=== PATIENT | female | born 1970 | race African-American/Black ===

== ENCOUNTER 2022-11-27 13:04 | Outpatient (OUT) | payer MEDICARE, MEDICAID, SELFPAY ==
[2022-11-27 13:44] LABS: Estimated Average Glucose 140 mg/dL; Glycohemoglobin A1C 6.5 % (4.5-6.2)
[2022-11-27 13:45] LABS: Alanine Aminotransferase 31 U/L (14-59); Albumin Globulin Ratio 1.1; Albumin Level 3.8 g/dL (3.4-5.0); Alkaline Phosphatase 73 U/L (46-116); Anion Gap 10.8; Aspartate Amino Transferase 16 U/L (15-37); Bilirubin Total 0.3 mg/dL (0.2-1.0); Calcium 8.9 mg/dL (8.5-10.1); Carbon Dioxide 29.3 mmol/L (21.0-32.0); Chloride 108 mmol/L (98-107); Chol HDL Ratio 2.8; Cholesterol 281 mg/dL (<=200); Estimated GFR (African America 42 (>=60); Estimated GFR (Non-African Ame 35 (>=60); Globulin 3.6 g/dL; Glucose 70 mg/dL (74-106); HDL Cholesterol 100 mg/dL (40-60); Potassium 4.1 mmol/L (3.5-5.1); Sodium 144 mmol/L (136-145); Total Protein 7.4 g/dL (6.4-8.2); Triglycerides 116 mg/dL (<=150); VLDL CHOLESTEROL 23.2 mg/dL
[2022-11-27 15:17] LABS: Thyroid Stimulating Hormone 1.706 uIU/mL (0.358-3.740)
== END 2022-11-27 13:05 | disposition home or self-care (01) ==
LOC: LAB 13:10
PROVIDERS: PCP Nurse Practitioner Primary Care; Visit Provider Nurse Practitioner Primary Care
DX: E11.9 Type 2 diabetes mellitus without complications (principal); E78.2 Mixed hyperlipidemia; E03.9 Hypothyroidism, unspecified
CPT/HCPCS: 36415; 80053; 80061; 83036; 84443

== ENCOUNTER 2023-02-26 11:00 | Outpatient (OUT) | payer MEDICARE, MEDICAID, SELFPAY ==
--- NOTE | 2023-02-26 | US_ITS ---
The [address] [address] Patient Name: LINDSEY AGEE MRN: [id number] date: 1970 Sex: F Assigned Patient Location: [place] Current Patient Location: [place] Accession/Order Number: [id number] Exam Date: 02/26/2023 11:12 Report Date: 02/26/2023 12:29 At the request of: SONYA REYNOSO Procedure: US renal BI US renal BI, 02/26/2023 11:12 AM EDT INDICATION: N18.32, I12.9, E55.9, E78.5 abnormal labwork COMPARISON: There is no appropriate prior study for comparison. FINDINGS: The kidneys measure 9.3 x 4.5 x 4.1 cm on the right and 9.7 x 2.5 x 4.1 cm on the left side. No hydronephrosis is noted. Normal vascularity of kidneys. Bilateral simple renal cysts are noted measuring less than 1 cm. Bilateral increased cortical echogenicity suggesting of medical renal disease. The visualized portion of the urinary bladder is unremarkable. The pre-void residual measures 309.5 mL. US/US renal BI IMPRESSION: Bilateral increased cortical echogenicity may suggest medical renal disease in appropriate clinical setting. No hydronephrosis is noted. Electronically authenticated by: GRISELDA DEAL Date: 02/26/2023 12:29
== END 2023-02-26 11:01 | disposition home or self-care (01) ==
LOC: US 11:00
PROVIDERS: PCP Nurse Practitioner Primary Care; Visit Provider Internal Medicine Nephrology
DX: I12.9 Hypertensive chronic kidney disease with stage 1 through stage 4 chronic kidney disease, or unspecified chronic kidney disease (principal); N18.32 Chronic kidney disease, stage 3b; E55.9 Vitamin D deficiency, unspecified; E78.5 Hyperlipidemia, unspecified
CPT/HCPCS: 76775

== ENCOUNTER 2023-04-05 10:26 | Outpatient (OUT) | payer MEDICARE, MEDICAID, SELFPAY ==
[2023-04-05 11:07] LABS: Basophils Percent Auto 0.4 % (0.2-2.0); Eosinophils Absolute Auto 0.1 10^3/uL (0.0-0.7); Eosinophils Percent Auto 1.5 % (0.9-7.0); Hematocrit 35.3 % (36.0-48.0); Hemoglobin 11.9 g/dL (12.0-16.0); Immature Granulocytes Abs Auto 0.02 10^3/uL (0.00-0.03); Immature Granulocytes Pct Auto 0.3 % (0.0-0.5); Lymphocytes Absolute Auto 1.5 10^3/uL (1.2-3.8); Lymphocytes Percent Auto 22.4 % (20.5-60.0); Mean Corpuscular HGB Conc 33.7 g/dL (29.9-35.2); Mean Corpuscular Hemoglobin 31.3 pg (26.7-34.0); Mean Corpuscular Volume 92.9 fL (81.0-99.0); Mean Platelet Volume 9.1 fL (9.5-13.5); Monocytes Absolute Auto 0.5 10^3/uL (0.3-0.8); Monocytes Percent Auto 6.8 % (1.7-12.0); Neutrophils Absolute Auto 4.6 10^3/uL (1.4-6.5); Neutrophils Percent Auto 68.6 % (43.0-75.0); Platelet Count 216 10^3/uL (150-450); Red Cell Distribution Width 13.4 % (11.0-15.0); White Blood Count 6.7 10^3/uL (4.0-11.0)
[2023-04-05 11:33] LABS: Estimated Average Glucose 137 mg/dL; Glycohemoglobin A1C 6.4 % (4.5-6.2)
[2023-04-05 11:34] LABS: Alanine Aminotransferase 40 U/L (14-59); Albumin Globulin Ratio 1.1; Albumin Level 3.8 g/dL (3.4-5.0); Alkaline Phosphatase 67 U/L (46-116); Aspartate Amino Transferase 23 U/L (15-37); BUN Creatinine Ratio 18.4; Bilirubin Total 0.4 mg/dL (0.2-1.0); Calcium 8.4 mg/dL (8.5-10.1); Carbon Dioxide 29.6 mmol/L (21.0-32.0); Chloride 102 mmol/L (98-107); Chol HDL Ratio 3.1; Cholesterol 270 mg/dL (<=200); Estimated GFR (African America 55 (>=60); Estimated GFR (Non-African Ame 45 (>=60); Globulin 3.6 g/dL; Glucose 94 mg/dL (74-106); HDL Cholesterol 88 mg/dL (40-60); Potassium 4.6 mmol/L (3.5-5.1); Sodium 139 mmol/L (136-145); Total Protein 7.4 g/dL (6.4-8.2); Triglycerides 123 mg/dL (<=150); VLDL CHOLESTEROL 24.6 mg/dL
[2023-04-05 12:42] LABS: TSH W/ REFLEX FT4 3.63
[2023-04-06 05:07] LABS: HIV Ab/p24 Ag Screen Non Reactive (Non Reactive)
== END 2023-04-05 10:27 | disposition home or self-care (01) ==
LOC: LAB 10:27
PROVIDERS: PCP Nurse Practitioner Primary Care; Visit Provider Nurse Practitioner Primary Care
DX: Z00.00 Encounter for general adult medical examination without abnormal findings (principal); Z13.6 Encounter for screening for cardiovascular disorders; Z13.29 Encounter for screening for other suspected endocrine disorder; Z11.4 Encounter for screening for human immunodeficiency virus [HIV]
CPT/HCPCS: 36415; 80053; 80061; 80156; 83036; 84443; 85025; 87389

== ENCOUNTER 2023-05-03 16:05 | Outpatient (OUT) | payer MEDICARE, MEDICAID, SELFPAY ==
[2023-05-03 16:30] LABS: Hematocrit 35.9 % (36.0-48.0); Mean Corpuscular HGB Conc 33.4 g/dL (29.9-35.2); Mean Corpuscular Hemoglobin 31.3 pg (26.7-34.0); Mean Corpuscular Volume 93.7 fL (81.0-99.0); Mean Platelet Volume 9.1 fL (9.5-13.5); Platelet Count 262 10^3/uL (150-450); Red Blood Count 3.83 10^6/uL (4.20-5.40); Red Cell Distribution Width 13.9 % (11.0-15.0); White Blood Count 8.3 10^3/uL (4.0-11.0)
[2023-05-03 16:31] LABS: Bilirubin Urine NEGATIVE (NEGATIVE); Blood Urine NEGATIVE (NEGATIVE); Clarity Urine CLEAR (CLEAR); Color Urine LT. YELLOW (YELLOW); Glucose Urine UA NEGATIVE (NEGATIVE); Ketones Urine NEGATIVE (NEGATIVE); Leukocyte Esterase Urine NEGATIVE (NEGATIVE); Nitrite Urine NEGATIVE (NEGATIVE); Protein Urine NEGATIVE (NEG/TRACE); Specific Gravity Urine 1.025 (1.005-1.025); Urobilinogen Urine 0.2 EU/dL (0.2-1.0); pH Urine 5.5 (5.0-9.0)
[2023-05-03 16:35] LABS: Creatinine Urine Random 112.18 mg/dL (20.00-300.00); Protein Creatinine Ratio Urine 0.18; Total Protein Urine Random 19.8 mg/dL (<=11.9)
[2023-05-03 17:09] LABS: Alanine Aminotransferase 26 U/L (14-59); Albumin Level 3.7 g/dL (3.4-5.0); Alkaline Phosphatase 71 U/L (46-116); Anion Gap 9.1; Aspartate Amino Transferase 16 U/L (15-37); BUN Creatinine Ratio 25.2; Bilirubin Total 0.3 mg/dL (0.2-1.0); Calcium 9.2 mg/dL (8.5-10.1); Carbon Dioxide 32.3 mmol/L (21.0-32.0); Chloride 104 mmol/L (98-107); Estimated GFR (African America 54 (>=60); Estimated GFR (Non-African Ame 45 (>=60); Globulin 3.7 g/dL; Glucose 175 mg/dL (74-106); Magnesium 1.5 mg/dL (1.8-2.4); Phosphorus 3.3 mg/dL (2.6-4.7); Potassium 3.4 mmol/L (3.5-5.1); Sodium 142 mmol/L (136-145); Total Protein 7.4 g/dL (6.4-8.2); Uric Acid 5.7 mg/dL (2.6-6.0)
[2023-05-06 11:07] LABS: PTH, Intact 52 pg/mL (15-65)
== END 2023-05-03 16:06 | disposition home or self-care (01) ==
PROVIDERS: PCP Nurse Practitioner Primary Care; Visit Provider Internal Medicine Nephrology
DX: I12.9 Hypertensive chronic kidney disease with stage 1 through stage 4 chronic kidney disease, or unspecified chronic kidney disease (principal); N18.32 Chronic kidney disease, stage 3b; E55.9 Vitamin D deficiency, unspecified; E78.5 Hyperlipidemia, unspecified
CPT/HCPCS: 36415; 80053; 81003; 82306; 82570; 83735; 83970; 84100; 84156; 84550; 85027

== ENCOUNTER 2023-06-04 13:20 | Outpatient (OUT) | payer MEDICARE, MEDICAID, SELFPAY ==
--- NOTE | 2023-06-04 13:23 | MM_ITS ---
Patient Name: LINDSEY AGEE MR#: [id number] : 1970 Exam Date: 06/04/2023 Ordering Doctor: MARLE[facility] REPORT PROCEDURE: MM TOMOSYNTHESIS SCREENING BI COMPARISON: MG MAMM LT DIAG FU, 05/18/2022. MAMMO POST BIOPSY LEFT, 06/05/2022. INDICATIONS: screening Calculator Name NCI Breast Cancer Risk Assessment Tool 5 Year Breast Cancer Risk Not Reported. Lifetime Breast Cancer Risk Not Reported. Personal Breast Cancer No Personal Ovarian Cancer No Treatments None Family Cancers None LOCATION: [facility] BREAST COMPOSITION: Heterogeneously dense,which may obscure small masses. FINDINGS: DIAGNOSTIC CATEGORY 2--BENIGN FINDING. NO CHANGE FROM COMPARISON. Scattered benign-appearing calcifications are present. Scattered benign-appearing nodules are present. RIGHT BREAST: No significant suspicious finding. LEFT BREAST: No significant suspicious finding. RECOMMENDATIONS: ROUTINE MAMMOGRAM AND CLINICAL EVALUATION IN 12 MONTHS. PLEASE NOTE: A NORMAL MAMMOGRAM DOES NOT EXCLUDE THE POSSIBILITY OF BREAST CANCER. A CLINICALLY SUSPICIOUS PALPABLE LUMP SHOULD BE BIOPSIED. Dictated by: Bello Guerrero MD on 06/04/2023 at 15:21 Approved by: Bello Guerrero MD on 06/04/2023 at 15:23
== END 2023-06-04 13:21 | disposition home or self-care (01) ==
LOC: MAMMO 13:20
PROVIDERS: PCP Nurse Practitioner Primary Care; Visit Provider Nurse Practitioner Primary Care
DX: Z12.31 Encounter for screening mammogram for malignant neoplasm of breast (principal)
CPT/HCPCS: 77063; 77067

== ENCOUNTER 2023-09-21 10:43 | Outpatient (OUT) | payer MEDICARE, MEDICAID, SELFPAY ==
[2023-09-21 11:49] LABS: Hematocrit 36.3 % (36.0-48.0); Hemoglobin 11.6 g/dL (12.0-16.0); Mean Corpuscular Volume 97.1 fL (81.0-99.0); Mean Platelet Volume 10.2 fL (9.5-13.5); Platelet Count 177 10^3/uL (150-450); Red Blood Count 3.74 10^6/uL (4.20-5.40); Red Cell Distribution Width 14.6 % (11.0-15.0); White Blood Count 5.8 10^3/uL (4.0-11.0)
[2023-09-21 12:22] LABS: Alanine Aminotransferase 16 U/L (14-59); Albumin Globulin Ratio 0.9; Albumin Level 3.7 g/dL (3.4-5.0); Alkaline Phosphatase 104 U/L (46-116); Anion Gap 15.1; Aspartate Amino Transferase 14 U/L (15-37); BUN Creatinine Ratio 16.3; Bilirubin Total 0.3 mg/dL (0.2-1.0); Carbon Dioxide 23.8 mmol/L (21.0-32.0); Chloride 112 mmol/L (98-107); Chol HDL Ratio 3.4; Cholesterol 242 mg/dL (<=200); Estimated GFR (African America 44 (>=60); Estimated GFR (Non-African Ame 36 (>=60); Globulin 4.2 g/dL; Glucose 87 mg/dL (74-106); HDL Cholesterol 72 mg/dL (40-60); Potassium 4.9 mmol/L (3.5-5.1); Sodium 146 mmol/L (136-145); Total Protein 7.9 g/dL (6.4-8.2); Triglycerides 103 mg/dL (<=150); VLDL CHOLESTEROL 20.6 mg/dL
== END 2023-09-21 10:44 | disposition home or self-care (01) ==
LOC: LAB 10:46
PROVIDERS: PCP Nurse Practitioner; Visit Provider Nurse Practitioner
DX: Z00.00 Encounter for general adult medical examination without abnormal findings (principal); Z13.6 Encounter for screening for cardiovascular disorders
CPT/HCPCS: 36415; 80053; 80061; 85027

== ENCOUNTER 2023-11-05 13:35 | Outpatient (OUT) | payer MEDICARE, MEDICAID, SELFPAY ==
--- OUTSIDE RECORDS SUMMARY | 2023-11-05 11:34 | XMS_ITS | CCD ---
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 Role Phone Nini Pelletier Unavailable Mildred Caroanupama Unavailable Nahum Srinivasan Primary Care Provider NAHUM SRINIVASAN Attending Unavailable NAHUM SRINIVASAN Primary Care Unavailable NAHUM SRINIVASAN Attending Unavailable NAHUM SRINIVASAN Primary Care Unavailable NAHUM SRINIVASAN Attending Unavailable NAHUM SRINIVASAN Primary Care Unavailable NAHUM SRINIVASAN Attending Unavailable NAHUM SRINIVASAN Primary Care Unavailable NAHUM SRINIVASAN Attending Unavailable NAHUM SRINIVASAN Primary Care Unavailable Nahum Srinivasan Primary Care Provider Rigo MALIK, Radha Garcia Primary Care P roritikader RADHA SIERRA Primary Care Unavailabl wayne Sierra MD, Radha Garcia Primary Care P roritikader LEONARDO BLACKBURN Primary Care Physician Shammo PLATE STACKER HAND, Leonardo(Historical) Primary Care Provid er Unavailable Janie Toscano Unavailable [phone] SHAMMO, LEONARDO Primary Care Unavailable NILL, Christopher R Attending Unavailable SHAMMO, LEONARDO Primary Care Unavailable SHAMMO, LEONARDO Referring Unavailable NILL, Christopher R Attending Unavailable SHAMMO, LEONARDO Primary Care Unavailable SHAMMO, LEONARDO Primary Care Unavailable NILL, Christopher R Attending Unavailable SHAMMO, LEONARDO Primary Care Unavailable NILL, Christopher R Attending Unavailable SHAMMO, LEONARDO Primary Care Unavailable NILL, Christopher R Attending Unavailable SHAMMO, LEONARDO Primary Care Unavailable NILL, Christopher R Attending Unavailable Rigo MALIK, [facility] GOLDEN Attending Unavailable NILLCHRISTOPHER Referring Unavailable NILL ., DR WHITE Consulting Unavailable SHAMMO, LEONARDO Primary Care Unavailable NILL ., DR WHITE Attending Unavailable NILL ., DR WHITE Admitting Unavailable SHARP, LUIS ENRIQUE Consulting Unavailable KUCHIPUDI, EMILI Consulting Unavailable SHAMMO, LEONARDO Consulting Unavailable SHAMMO, LEONARDO Attending Unavailable SHAMMO, LEONARDO Admitting Unavailable SHAMMO, LEONARDO Primary Care Unavailable SHAMMO, LEONARDO Primary Care Unavailable KARASIK ., DR LIMA Attending Unavailabl e KARASIK ., DR LIMA Admitting Unavailabl e KARASIK ., DR LIMA Consulting Unavailabl e ZIEBER, DR SHANI Hernandez Consulting Unavailable KARASIK ., DR LIMA Attending Unavailabl e KARASIK ., DR LIMA Admitting Unavailabl e KARASIK ., DR LIMA Consulting Unavailabl e SHAMMO, LEONARDO Primary Care Unavailable ZIEBER, DR SHANI Hernandez Consulting Unavailable SHAMMO, LEONARDO Primary Care Unavailable SHAMMO, LEONARDO Attending Unavailable SHAMMO, LEONARDO Admitting Unavailable ZIEBER, DR SHANI Hernandez Consulting Unavailable SHAMMO, LEONARDO Consulting Unavailable NILL ., DR WHITE Admitting Unavailable NILL ., DR WHITE Consulting Unavailable SHAMMO, LEONARDO Primary Care Unavailable NILL ., DR WHITE Attending Unavailable KARASIK ., DR LIMA Attending Unavailabl e KARASIK ., DR LIMA Admitting Unavailabl e KARASIK ., DR LIMA Consulting Unavailabl e MISC, DR JOSEPH Admitting Unavailable MISC, DR JOSEPH Consulting Unavailable MISC, DR JOSEPH Attending Unavailable SHAMMO, LEONARDO Consulting Unavailable SHAMMO, LEONARDO Attending Unavailable SHAMMO, LEONARDO Admitting Unavailable SHAMMO, LEONARDO Primary Care Unavailable NILL ., DR WHITE Consulting Unavailable NILL ., DR WHITE Attending Unavailable SHAMMO, LEONARDO Primary Care Unavailable NILL ., DR WHITE Admitting Unavailable SHAMMO, LEONARDO Primary Care Unavailable ZIEBER, DR SHANI Hernandez Consulting Unavailable NILL ., DR WHITE Attending Unavailable NILL ., DR WHITE Admitting Unavailable NILL ., DR WHITE Consulting Unavailable SHARP, LUIS ENRIQUE Consulting Unavailable AKASH II, SONJA Consulting Unavailable SHAMMO, LEONARDO Primary Care Unavailable KARASIK ., DR LIMA Attending Unavailabl e KARASIK ., DR LIMA Admitting Patrick TOSCANO ., DR LIMA Consulting Patrick MATOS, DR SHANI Hernandez Consulting Corazon Garza Unavailable Allergies Allergy Classification Reported Allergen(s) Allergy Type Date of Onset Reaction(s) Facility (1 source) No Known Medication Allergies; Translations: [No Known Medication Allergies] Propensity to adverse reactions (disorder) [facility] Repository Medications Current Medications Medication Drug Class(es) Dates Sig (Normalized) Sig (Original) alendronic acid 35 mg oral tablet (5 sources) Bisphosphonate Start: 06-06-2022 take 1 tablet by mouth every week alendronate 35 mg Tab 35 mg = 1 tab(s), Oral, qWeek, Refills(s) 0 Start Date: 06/20/22 Status: Ordered take 1 tablet by mouth once boogie y Alendronate Sodium 35 MG 1 tablet 30 minutes before the first food, beverage or medicine of the day with plain water Orally Active Comment on above: TAKE 1 TAB BY MOUTH ONCE A WEEK 30 MINS BEFORE FIRST FOOD/BEVERAGE/MEDS OF THE DAY WITH PLAIN WATER simvastatin 20 mg oral tablet (13 sources) HMG-CoA Reductase Inhibitor Start: 020 End: 022 take 1 tablet by mouth once daily simvastatin (ZOCOR) 20 MG tablet Indications: Hyperlipidemia, unspecified hyperlipidemia type Take 1 (one) tablet (20 mg total) by mouth daily . 90 tablet 1 09/22/2021 03/21/2022 Active Start: 06-07-2018 End: 04-04-2019 take 1 tablet by mouth once daily simvastatin (ZOCOR) 20 MG tablet Indications: Hyperlipidemia, unspecified hyperlipidemia type Take 1 (one) tablet (20 mg total) by mouth daily . 30 tablet 1 04/04/2019 Active Start: 05-03-2016 End: 07-31-2017 take 1 tablet by mouth once daily simvastatin (ZOCOR) 20 MG tablet Indications: Hyperlipidemia, unspecified hyperlipidemia type Take 1 (one) tablet (20 mg total) by mouth daily. 90 tablet 1 07/31/2017 Active levothyroxine sodium 0.025 mg oral tablet (20 sources) l-Thyroxine Start: 03-01-2022 take 1 tablet by mouth once daily levothyroxine 25 mcg (0.025 mg) Tab 25 mcg = 1 tab(s), Oral, Daily, Refills(s) 0 Start Date: 03/01/22 Status: Ordered Start: 10-01-2019 End: 08-30-2022 take 1 tablet by mouth once daily in the morning levothyroxine (SYNTHROID, LEVOTHROID) 25 MCG tablet Indications: Acquired hypothyroidism TAKE 1 (ONE) TABLET (25 MCG TOTAL) BY MOUTH EVERY MORNING . 90 tablet 1 03/03/2022 08/30/2022 Active Start: 06-07-2018 End: 04-04-2019 take 1 tablet by mouth once daily in the morning levothyroxine (Synthroid) 25 MCG tablet Indications: Acquired hypothyroidism Take 1 (one) tablet (25 mcg total) by mouth every morning . 30 tablet 1 04/04/2019 Active Start: 09-26-2017 take 1 tablet by giovana th once daily in the morning levothyroxine (SYNTHROID) 25 MCG tablet Indications: Acquired hypothyroidism Take 1 (one) tablet (25 mcg total) by mouth every morning. 90 tablet 1 09/26/2017 Active Start: 05-03-2016 End: 09-26-2017 take 1 tablet by mouth once daily in the morning levothyroxine (SYNTHROID) 25 MCG tablet Indications: Acquired hypothyroidism Take 1 (one) tablet (25 mcg total) by mouth every morning. 90 tablet 1 08/14/2017 09/26/2017 Discontinued Completed/Discontinued Medications Medication Drug Class(es) Dates Sig (Normalized) Sig (Original) amLODIPine 10 mg oral tablet (20 sources) Dihydropyridine Calcium Channel Jae Start: 06-20-2022 take 1 tablet by mouth once daily amLODIPine (NORVASC) 10 mg tablet Take 10 mg by mouth once daily. 0 06/20/2022 Active Start: 04-30-2020 End: 03-21-2022 take 1 tablet by mouth once daily amLODIPine 10 mg Tab 10 mg = 1 tab(s), Oral, Daily, Refills(s) 0 Start Date: 03/01/22 Status: Ordered Start: 06-07-2018 End: 04-04-2019 take 1 tablet by mouth once daily amLODIPine (NORVASC) 10 MG tablet Indications: Hypertension, benign Take 1 (one) tablet (10 mg total) by mouth daily . 30 tablet 1 04/04/2019 Active Start: 09-26-2017 take 1 tablet by giovana once daily amLODIPine (NORVASC) 10 MG tablet Indications: Hypertension, benign Take 1 (one) tablet (10 mg total) by mouth daily. 90 tablet 1 09/26/2017 Active Start: 08-28-2017 End: 09-26-2017 take 1 tablet by mouth once daily amLODIPine (NORVASC) 10 MG tablet Indications: Hypertension, benign Take 1 (one) tablet (10 mg total) by mouth daily. 30 tablet 1 08/28/2017 09/26/2017 Discontinued Start: 01-15-2017 End: 07-31-2018 take 1 tablet by mouth once daily amLODIPine (NORVASC) 5 MG tablet Indications: Hypertension, benign Take 1 (one) tablet (5 mg total) by mouth daily. 30 tablet 1 07/31/2017 08/28/2017 Discontinued Comment on above: Take 10 mg by mouth once daily. blood pressure test kit-small Kit (6 sources) Start: 07-31-2017 End: 04-04-2019 blood pressure test kit-small Kit Indications: Hypertension, benign 1 kit by Miscellaneous route daily. 1 each 0 07/31/2017 04/04/2019 Discontinued Start: 07-31-2017 blood pressure test kit-small Kit Indications: Hypertension, benign 1 kit by Miscellaneous route daily. 1 each 0 07/31/2017 Active cloNIDine hydrochloride 0.1 mg oral tablet (3 sources) Central alpha-2 Adrenergic Agonist Start: 07-31-2017 End: 08-14-2017 cloNIDine HCl (CATAPRES) tablet 0.2 mg hydroCHLOROthiazide 25 mg / lisinopril 20 mg oral tablet (18 sources) Thiazide Diuretic, Angiotensin Converting Enzyme Inhibitor Start: 07-03-2022 take 1 tablet by mouth once daily lisinopril-hydr oCHLOROthiazide (PRINZIDE, ZESTORETIC) 20-25 mg per tablet Take 1 tablet by mouth once daily. 0 07/03/2022 Active Start: 04-30-2020 End: 03-21-2022 take 1 tablet by mouth once daily hydrochlorothiazide-lisinopril 25 mg-20 mg Tab 1 tab(s), Oral, Daily, Refill(s) 0 Start Date: 03/01/22 Status: Ordered Start: 08-14-2017 End: 06-07-2019 take 1 tablet by mouth once daily lisinopril-hydrochlorothiazide (PRINZIDE,ZESTORETIC) 20-25 mg per tablet Indications: Hypertension, benign Take 1 (one) tablet by mouth daily . 30 tablet 0 06/07/2018 04/04/2019 Discontinued (Reorder) Comment on above: Take 1 tablet by giovana th once daily. lisinopril 10 mg oral tablet (4 sources) Angiotensin Converting Enzyme Inhibitor Start: 9 End: take 1 tablet by mouth once daily lisinopril (PRINIVIL,ZESTRIL) 10 MG tablet Indications: Hypertension, benign Take 1 (one) tablet (10 mg total) by mouth daily . 30 tablet 3 06/07/2018 04/04/2019 Discontinued Start: 07-31-2017 End: 08-14-2017 take 2 tablets by mouth once daily, then take 1 tablet by mouth lisinopril (PRINIVIL,ZESTRIL) 10 MG tablet Indications: Hypertension, benign Take 2 (two) tablets (20 mg total) by mouth daily. 60 tablet 1 07/31/2017 08/14/2017 Discontinued microencapsulated potassium chloride 20 meq extended release oral tablet (17 sources) Start: 07-18-2022 take 1 tablet by mouth once daily at mealtime KLOR-CON M20 20 mEq tablet TAKE 1 TABLET BY MOUTH EVERY DAY WITH FOOD FOR 90 DAYS 0 07/18/2022 Active Start: 03-01-2022 take 1 tablet by giovana th once daily Potassium Chloride (Ldp-Aoyk-Rky M20) 20 mEq oral tablet, extended release 20 mEq = 1 tab(s), Oral, Daily, Refills(s) 0 Start Date: 03/01/22 Status: Ordered Start: 04-30-2020 End: 03-21-2022 take 1 tablet by mouth once daily potassium chloride SA (K-DUR,KLOR-CON) 20 MEQ tablet Indications: Hypertension, benign Take 1 (one) tablet (20 mEq total) by mouth daily . 90 tablet 1 09/22/2021 03/21/2022 Active Start: 06-07-2018 take 1 tablet by giovana th once daily potassium chloride SA (K-DUR,KLOR-CON) 20 MEQ tablet Indications: Hypopotassemia Take 1 (one) tablet (20 mEq total) by mouth daily To supplement potassium . 30 tablet 3 06/07/2018 Active Start: 05-03-2016 End: 08-14-2017 take 1 tablet by mouth once daily potassium chloride SA (K-DUR,KLOR-CON) 20 MEQ tablet Indications: Hypopotassemia Take 1 (one) tablet (20 mEq total) by mouth daily To supplement potassium. 90 tablet 1 08/14/2017 Active Comment on above: TAKE 1 TABLET BY GIOVANA TH EVERY DAY WITH FOOD FOR 90 DAYS Problems Active Problems Problem Classification Problem Date Documented Da te Episodic/Chronic Cancer of breast (7 sources) Intraductal carcinoma in situ of left breast; Translations: [Intraductal carcinoma in situ of breast] Onset: 06-12-2022 Chronic Cardiac dysrhythmias (6 sources) Sinus tachycardia; Translations: [Sinus tachycardia] Onset: 08-12-2015 08-12-2015 Chronic Chronic kidney disease (2 sources) Chronic kidney disease stage 3B ; Translations: [Chronic kidney disease, stage 3b] Chronic Developmental disorders (11 sources) Intellectual functioning disability ; Translations: [Mental retardation] Onset: 04-27-2014 04-27-2014 Chronic Diabetes mellitus without complication (4 sources) Type 2 diabetes mellitus without complications; Translations: [TYPE 2 DM WITHOUT COMPLICATIONS] Onset: 08-17-2022 Chronic Diabetes mellitus without complication (7 sources) Prediabetes; Translations: [Prediabetes] Onset: 09-22-2021 Episodic Disorders of lipid metabolism (20 sources) Hyperlipidemia; Translations: [Hyperlipidemia, unspecified] Onset: 12-10-2009 04-27-2014 Chronic Essential hypertension (20 sources) Benign hypertension; Translations: [Essential (primary) hypertension] Onset: 09-27-2009 04-27-2014 Chronic Hypertension with complications and secondary hypertension (3 sources) Hypertensive renal disease; Translations: [Hypertensive chronic kidney disease with stage 1 through stage 4 chronic kidney disease, or unspecified chronic kidney disease] Chronic Nonmalignant breast conditions (5 sources) Atypical ductal hyperplasia of breast; Translations: [Unspecified benign mammary dysplasia of left breast] Onset: 05-25-2022 Episodic Nutritional deficiencies (3 sources) Vitamin D deficiency; Translations: [Vitamin D deficiency, unspecified] Chronic Osteoporosis (1 source) Age-related osteoporosis without current pathological fracture; Translations: [AGE-REL OSTEOPOR W/O CURR PATH FX] Onset: 04-25-2022 Chronic Other and unspecified benign neoplasm (2 sources) Benign tumor of breast; Translations: [Benign neoplasm of left breast] Onset: 06-20-2022 Episodic Other and unspecified benign neoplasm (2 sources) Fibroadenoma of breast 06-20-2022 Episodic Other and unspecified benign neoplasm (4 sources) Benign neoplasm of left breast; Translations: [BENIGN NEOPLASM OF LEFT BREAST] Onset: 07-05-2022 Episodic Other congenital anomalies (4 sources) Short stature disorder; Translations: [Other specified congenital malformation syndromes, not elsewhere classified] Onset: 04-27-2014 04-27-2014 Chronic Other ear and sense organ disorders (11 sources) Hearing loss; Translations: [Unspecified hearing loss, unspecified ear] Onset: 04-27-2014 04-27-2014 Chronic Other ear and sense organ disorders (1 source) Bilateral hearing loss; Translations: [Bilateral hearing loss, unspecified hearing loss type] Chronic Other liver diseases (5 sources) Abnormal levels of other serum enzymes; Translations: [ABNORMAL LEVELS OTHER SERUM ENZYMES] Onset: 04-24-2022 Episodic Other nutritional; endocrine; and metabolic disorders (2 sources) Body mass index less than 20 03-08-2022 Episodic Other nutritional; endocrine; and metabolic disorders (1 source) Underweight; Translations: [UNDERWEIGHT] Onset: 07-20-2022 Episodic Other nutritional; endocrine; and metabolic disorders (1 source) Body mass index (BMI) 19.9 or less, adult; Translations: [BODY MASS INDEX 19.9 OR LESS ADULT] Onset: 07-20-2022 Episodic Other screening for suspected conditions (not mental disorders or infectious disease) (20 sources) Patient encounter status; Translations: [Encounter for other screening for malignant neoplasm of breast] Onset: 09-22-2021 Episodic Thyroid disorders (20 sources) Hypothyroidism; Translations: [Acquired hypothyroidism] Onset: 12-10-2009 04-27-2014 Chronic Unclassified (10 sources) Patient encounter status; Translations: [Routine general medical examination at a health care facility] Onset: 06-15-2011 Resolved: 04-04-2019 04-27-2014 Unclassified (3 sources) Intellectual disability; Translations: [Intellectual disability] Onset: 04-27-2014 04-27-2014 Unclassified (1 source) CONTACT W/AND (SUSP) EXPOS COVID-19; Translations: [CONTACT W/AND (SUSP) EXPOS COVID-19] Onset: 04-11-2022 Past or Other Problems Problem Classification Problem Date Documented Date Episodic/Chronic Cardiac dysrhythmias (8 sources) Sinus tachycardia; Translations: [Tachycardia, unspecified] Onset: 08-12-2015 Episodic Chronic kidney disease (1 source) Chronic kidney disease Fluid and electrolyte disorders (12 sources) Hypokalemia; Translations: [Hypokalemia] Onset: 10-15-2012 Resolved: 03-08-2022 04-27-2014 Episodic Genitourinary symptoms and ill-defined conditions (2 sources) Disorder of the urinary system; Translations: [Disorder of kidney and ureter] Onset: 2012 04-27-2014 Episodic Immunizations and screening for infectious disease (1 source) Encounter for screening for human papillomavirus (HPV); Translations: [ENC SCREENING HUMAN PAPILLOMAVIRUS] Onset: 03-02-2022 Episodic Other diseases of kidney and ureters (8 sources) Disorder of kidney and/or ureter; Translations: [Disorder of kidney and ureter, unspecified] Onset: 2012 Resolved: 04-04-2019 04-27-2014 Episodic Other nutritional; endocrine; and metabolic disorders (16 sources) Underweight; Translations: [Short stature disorder] Onset: 04-27-2014 06-05-2014 Episodic Other nutritional; endocrine; and metabolic disorders (3 sources) Short stature disorder; Translations: [Short stature associated with congenital syndrome] Onset: 04-27-2014 04-27-2014 Episodic Other nutritional; endocrine; and metabolic disorders (1 source) Unexplained weight loss ; Translations: [Unexplained weight loss] Episodic Residual codes; unclassified (1 source) FH: Diabetes mellitus; Translations: [Family history of diabetes mellitus] Episodic Residual codes; unclassified (1 source) Asymptomatic menopausal state; Translations: [ASYMPTOMATIC MENOPAUSAL STATE] Onset: 04-25-2022 Episodic Results Test Name Value Interpretation Reference Range Facility GLYCOHEMOGLOBIN A1Con 2022 ADA RECOMMENDATION SEE BELOW Normal [facility] Comment on above: Result Comment: ADA RECOMMENDED LIMIT 4.0 - 6.0 ADA THERAPEUTIC TARGET < 7.0 ACTION SUGGESTED > 7.0 Performed By: #### A 1C #### [facility] [address] [place] [address] Dr. Mitesh Anthony Glucose [Mass/Vol] 137 mg/dL Normal [facility] Comment on above: Performed By: #### A 1C #### [facility] [address] [place] [address] Dr. Mitesh Anthony HbA1c (Bld) [Mass fraction] 6.4 % Critically high 4.5-6.2 [facility] Comment on above: Performed By: #### A 1C #### [facility] [address] [place] [address] Dr. Mitesh Anthony MICROALBUMIN, RAND URon 07-27 mALB 5.7 mg/L Normal <=30.0 [facility] Comment on above: Performed By: #### M ALBR #### [facility] [address] [place] [address] Dr. Mitesh Anthony PROF 14(COMP METB)on 023 Albumin [Mass/Vol] 4.1 g/dL Normal 3.4-5.0 [facility] Comment on above: Performed By: #### T SHRFT4, CMP #### [facility] [address] [place] [address] Dr. Mitesh Anthony Albumin/Globulin [Mass ratio] 1.1 {ratio} Normal [facility] Comment on above: Performed By: #### T SHRFT4, CMP #### [facility] [address] [place] [address] Dr. Mitesh Anthony ALP [Catalytic activity/Vol] 89 U/L Normal 46-116 [facility] Comment on above: Performed By: #### T SHRFT4, CMP #### [facility] [address] [place] [address] Dr. Mitesh Anthony ALT [Catalytic activity/Vol] 26 U/L Normal 14-59 [facility] Comment on above: Performed By: #### T SHRFT4, CMP #### [facility] [address] [place] [address] Dr. Mitesh Anthony Anion gap [Moles/Vol] 11.3 mmol/L Normal [facility] Comment on above: Performed By: #### T SHRFT4, CMP #### [facility] [address] [place] [address] Dr. Mitesh Anthony AST [Catalytic activity/Vol] 18 U/L Normal 15-37 [facility] Comment on above: Performed By: #### T LYNN4, CMP #### [facility] [address] [place] [address] Dr. Mitesh Anthony Bilirubin [Mass/Vol] 0.2 mg/dL Normal 0.2-1.0 [facility] Comment on above: Performed By: #### T SHRFT4, CMP #### [facility] [address] [place] [address] Dr. Mitesh Anthony Calcium [Mass/Vol] 9.4 mg/dL Normal 8.5-10.1 [facility] Comment on above: Performed By: #### T SHRFT4, CMP #### [facility] [address] [place] [address] Dr. Mitesh Anthony Chloride [Moles/Vol] 106 mmol/L Normal 98-107 [facility] Comment on above: Performed By: #### T LYNNFT4, CMP #### [facility] [address] [place] [address] Dr. Mitesh Anthony CO2 [Moles/Vol] 30.3 mmol/L Normal 21.0-32.0 [facility] Comment on above: Performed By: #### T SHR4, CMP #### [facility] [address] [place] [address] Dr. Mitesh Anthony Creatinine [Mass/Vol] 1.37 mg/dL Critically high 0.55-1.02 [facility] Comment on above: Performed By: #### T SHRFT4, CMP #### [facility] [address] [place] [address] Dr. Mitesh Anthony EGFR-AF GREENLANDIC 50 mL/min/1.73m2 Critically low >=60 [facility] Comment on above: Performed By: #### T SHRFT4, CMP #### [facility] [address] [place] [address] Dr. Mitesh Anthony EGFR-NON AF GREENLANDIC 41 mL/min/1.73m2 Critically low >=60 [facility] Comment on above: Performed By: #### T SHRFT4, CMP #### [facility] [address] [place] [address] Dr. Mitesh Anthony Globulin (S) [Mass/Vol] 3.6 g/dL Normal [facility] Comment on above: Performed By: #### T SHRFT4, CMP #### [facility] [address] [place] [address] Dr. Mitesh Anthony Glucose [Mass/Vol] 97 mg/dL Normal 74-106 [facility] Comment on above: Performed By: #### T LYNNFT4, CMP #### [facility] [address] [place] [address] Dr. Mitesh Anthony Potassium [Moles/Vol] 3.6 mmol/L Normal 3.5-5.1 [facility] Comment on above: Performed By: #### T ISAIAS4, CMP #### [facility] [address] [place] [address] Dr. Mitesh Anthony Protein [Mass/Vol] 7.7 g/dL Normal 6.4-8.2 [facility] Comment on above: Performed By: #### T LYNNFT4, CMP #### [facility] [address] [place] [address] Dr. Mitesh Anthony Sodium [Moles/Vol] 144 mmol/L Normal 136-145 [facility] Comment on above: Performed By: #### T ISAIAS4, CMP #### [facility] [address] [place] [address] Dr. Mitesh Anthony Urea nitrogen [Mass/Vol] 29.0 mg/dL Critically high 7.0-18.0 [facility] Comment on above: Performed By: #### T LYNNFT4, CMP #### [facility] [address] [place] [address] Dr. Mitesh Anthony Urea nitrogen/Creatinine [Mass ratio] 21.2 mg/mg Normal [facility] Comment on above: Performed By: #### T LYNNFT4, CMP #### [facility] [address] [place] [address] Dr. Mitesh Anthony TSH W/ REFLEX TO FT4on 08-17 TSH 1.449 uIU/mL Normal 0.358-3.740 [facility] Comment on above: Performed By: #### L IPID, CMP #### [facility] [address] [address] [address] Mitesh Anthony OUTSIDE SURG PATH SLIDE REVI EWon 08-07-2022 CASE REPORT Normal [facility] Comment on above: Order Comment: Speci evelyn Type: SLIDE Ordering Facility: [facility] Review Address: , , Result Comment: Surg ical Pathology Report Case: [id number] Authorizing Provider: Kaden Golden MD Collected: 08/07/2022 09:12 AM Ordering Location: [facility] Received: 08/07/2022 09:15 AM Pathologist: Albaro Murguia MD Specimen: SLIDE(S), 18 SLIDES, [id number] Performed By: #### L [id number] #### [facility] CLIA [id number] [address] [place] [address] CLINICAL HISTORY Prior core biopsy diagnosis [facility]. 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 Performed By: #### L [id number] #### [facility] CLIA [id number] [address] [place] [address] FINAL DIAGNOSIS Normal [facility] Comment on above: Order Comment: Raimundo rivas Type: SLIDE Ordering Facility: [facility] Outside Review Address: , , Result Comment: Lois crawley, left, at 3:00, excisional biopsy ([id number]; 07/12/2022): ---Atypical intraductal proliferation predominantly involving a fibroadenomatoid nodule. ---Background breast with previous biopsy site. ---Please see comment. Performed By: #### L [id number] #### [facility] CLIA [id number] [address] [place] [address] FINAL PERFORMING LAB Normal [facility] Comment on above: Order Comment: Speci men Type: SLIDE Ordering Facility: Outside Review Address: , , Result Comment: Diag nostic interpretation performed at [place] [address] CLIA# [id number] Mill Recorder: Akshat Nguyen M.D. Performed By: #### L [id number] #### [facility] CLIA [id number] [address] [place] [address] Consultation Noteon 08-04-19 23 Consultation Note [id number] [facility] [id number]#1.00C D:127 Normal [facility] CNOVSPon 08-02-2022 OVS Visit (SP) Office ([place] ([id number][facility] 1970 F Date Time Provider Department 08/02/22 3:30 PM KADEN GOLDEN During your visit today, we recorded the following information about you: Temperature Pulse Respiration Blood pressure 97.5 degrees 74/minute 16/minute 136/85 Weight Height 32.2 kg 1.321 m Kaden Golden MD 08/02/2022 4:01 PM Signed PATIENT NAME: Lindsey Polo CLINIC NO.: [id number] ATTENDING PHYSICIAN: Kaden Golden MD DATE OF SERVICE: August 02, [address] Christopher Meadows thank you for referring Miss Lindsey Polo for an opinion regarding ADH. CHIEF COMPLAINT: I have a breat mass that was taken HPI: Lindsey Polo is a 51 year old year old female with PMH sig for intellectual disability, lives with her cousin, HTN, pre diabetes, Osteoporosis who had a routine mammogram 04/24/2022 and L breast showed a 5 mm geographic shaped opacity in the posterior upper outer quadrant and 4 mm partially circumscribed mass mild LL quadrant. US 05/18/2022 demonstrated 7x7x3 mm hypoechoic mass at 2o'clock position 3.3 cm FN and biopsy was done 06/05/2022 which demonstrated atypical ductal proliferation bordering DCIS within a fibroadenoma. She subsequently saw Dr. Meadows and L breast Lumpectomy 07/12/2022 with atypical ductal proliferation bordering DCIS She denies any family history of breast and or ovarian cancer and also denies any hormone use and or previous breast biopsy She lives with her cousin Current Outpatient Medications Medication Sig alendronate (FOSAMAX) 35 mg tablet TAKE 1 TAB BY MOUTH ONCE A WEEK 30 MINS BEFORE FIRST FOOD/BEVERAGE/MEDS OF THE DAY WITH PLAIN WATER amLODIPine (NORVASC) 10 mg tablet Take 10 mg by mouth once daily. lisinopril-hydroCHLOROt hiazide (PRINZIDE, ZESTORETIC) 20-25 mg per tablet Take 1 tablet by mouth once daily. KLOR-CON M20 20 mEq tablet TAKE 1 TABLET BY MOUTH EVERY DAY WITH FOOD FOR 90 DAYS No current facility-administered medications for this visit. ALLERGIES No Known Allergies PAST MEDICAL HISTORY Diagnosis Date Ductal carcinoma in situ (DCIS) of left breast HTN (hypertension) Hyperlipemia Intellectual disability Sinus tachycardia History reviewed. No pertinent surgical history. History reviewed. No pertinent family history. Social History Tobacco Use Smoking status: Never Passive exposure: Past Smokeless tobacco: Never Substance Use Topics Alcohol use: Not Currently Drug use: Never REVIEW OF SYSTEMS GENERAL: No weight loss, malaise or fevers. No night sweats. HEENT: Negative for headaches, No changes in hearing or vision, no nose bleeds or other nasal problems. RESPIRATORY: Negative for cough, wheezing and shortness of breath CARDIOVASCULAR: Negative for chest pain, leg swelling and palpitations GI: Negative for abdominal discomfort, blood in stools or black stools and change in bowel habits : Negative for dysuria, frequency and incontinence MUSCULOSKELETAL: Negative for joint pain or swelling, back pain, and muscle pain. SKIN: Negative for lesions, rash, and itching. HEMATOLOGY/LYMPHOLOGY Negative for prolonged bleeding, bruising easily, and swollen nodes. NEURO: Negative for numbness or tingling of hands/feet. No weakness. PHYSICAL EXAMINATION: BP 136/85 Pulse 74 Temp 36.4 ?C (97.5 ?F) (Temporal) Resp 16 Ht 132.1 cm (4' 4.01 ) Wt 32.2 kg (71 lb) SpO2 93% BMI 18.46 kg/m? Wt 32.2 kg (71 lb) BMI 18.46 kg/m2 Last 3 Encounter Wt Readings: Date: Wt: 08/02/2022 32.2 kg (71 lb) General appearance:ECOG PERFORMANCE STATUS: 1- Restricted in physically strenuous activity. Carries out light duty. Patient in NAD. Skin: Skin color, texture, turgor normal. No rashes or lesions. Eyes: Anicteric sclera. Pupils are equally round and reactive to light. Extraocular movements are intact. Breast: No palpable breast masses. No nipple change or discharge. Lymph Nodes: No cervical, supraclavicular, axillary or inguinal adenopathy. Oropharynx: Lips, mucosa, and tongue normal. Back: No pain to percussion. Negative SLR test Lungs clear to auscultation, No wheezing or rhonchi Heart: RRR without murmur, gallop, or rubs. Abdomen soft, non-tender. No masses, organomegaly Extremities: No deformities. No edema Neuro: Gait and speech normal. Reflexes normal and symmetric. Muscular strength intact. Sensation grossly intact. Rectal: Deferred : Deferred LABS: No results found for: GLUC, K, NA, CHLOR, CO2, CREAT, BUN, ANION, CA, TPROT, ALB, TBILI, ALKPHOS, AST, ALT No results found for: WBC, RBC, HB, HCT, MCV, MCH, MCHC, RDWCV, PLT, MPV, MPV, NEUT, ABSNEUT, LYMPHP, ABSLYMPH, MONOP, ABSMONO, EOSINP, ABSEOSIN, BASOP, ABSBASO PATH: Saturnino Anton Lumpectomy 06/2022: IMAGING: Mammogram and US 04/2022: ASSESSMENT AND PLAN: Lindsey Burrows Christ is a 51 year old year old (more content not included)... Normal [facility] CNPNon 08-02-2022 CNPN Telephone (NCCAP) LINDSEY POLO ([id number]) 1970 F Date Time Provider Department 08/02/22 KADEN GOLDEN NCCAP During your visit today, we recorded the following information about you: Luis Enrique Szymanski 08/02/2022 3:50 PM Signed Request sent to [facility] General pathology to send to [facility] for second opinion August 02, 2022 3:50 PM Luis Enrique Szymanski Allergies As of Date: 08/02/2022 (No Known Allergies) Date Reviewed: 08/02/2022 Reviewed by: Yulissa Montiel - Fully Assessed Reason for Visit: Second Opinion Pathology [Other] Prescriptions as of 08/02/2022 - alendronate (FOSAMAX) 35 mg tablet TAKE 1 TAB BY MOUTH ONCE A WEEK 30 MINS BEFORE FIRST FOOD/BEVERAGE/MEDS OF THE DAY WITH PLAIN WATER - amLODIPine (NORVASC) 10 mg tablet Take 10 mg by mouth once daily. - lisinopril-hydroCHLOROt hiazide (PRINZIDE, ZESTORETIC) 20-25 mg per tablet Take 1 tablet by mouth once daily. 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 What to do next Someone Will Contact You Regarding These Appointments [facility] [place] Ref[place], Geographic proximity, Oncology, [facility], or [facility], [facility], 07/21/22 13:48:00 EST, Ductal carcinoma in situ (DCIS) of left breast Medications What How Much When Instructions Unchanged alendronate (alendronate 35 mg Tab) 1 Tablets By Mouth Every week Unchanged amlodipine (amLODIPine 10 mg Tab) 1 Tablets By Mouth Every day Unchanged hydrochlorothiazide-lis inopril (hydrochlorothiazide-li sinopril 25 mg-20 mg Tab) 1 Tablets By Mouth Every day Unchanged levothyroxine (levothyroxine 25 mcg (0.025 mg) Tab) 1 Tablets By Mouth Every day Unchanged potassium chloride (Potassium Chloride (Lsi-Okhf-Guq M20) 20 mEq oral tablet, extended release) 1 Tablets By Mouth Every day Allergies No Known Allergies No Known Medication Allergies Problems Ongoing - Any problem that you are currently receiving treatment for. 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 Hypokalemia Normal [facility] General Surgery Office/Clini c Noteon 07-21-2022 General Surgery Office/Clinic Note Chief Complaint post operative follow up HPI Staff 9 day post operative follow up post needle localized left breast lumpectomy. Denies pain, no use of pain medication. Denies bleeding, drainage or significant bruising. History of Present Illness 9 days s/p left breast lumpectomy, pathology with atypical ductal proliferation bordering DCIS, within a fibroadenomatous lesion; negative margins; patient denies pain or drainage; no bruising. Review of Systems ROS - Provider Constitutional: no fever, no sweats, no weight loss. Eyes: no glasses, no blurred vision, no visual loss. ENMT: no dentures, no hoarseness, no swallowing difficulties, no hearing loss, no ear infection(s), no nose bleeds. Cardiovascular: normal blood pressure, no chest pain, regular heartbeat, no heart murmur. Respiratory: no shortness of breath, no cough, no asthma, no wheezing. Gastrointestinal: no nausea, no vomiting, no diarrhea, no constipation, no blood in stool, no change in bowel habits, no abdominal pain, no hepatitis. Genitourinary: no kidney stones, no urine infection, no dysuria. Musculoskeletal: no pain, no weakness. Skin: no changing moles, no rash, no skin lumps. Neurologic: no seizures, no epilepsy, no headache. Psychiatric: no emotional or psychiatric problem. Heme/Lymph: no bleeding problems, no anemia, no blood clots, no transfusions. Allergy/Immunologic: no swollen lymph nodes/glands, no IV drug abuse. Other: Additional ROS info: Except as noted in the above Review of Systems and in the History of Present Illness, all other systems have been reviewed and are negative or noncontributory. Physical Exam skin: incision healing well, no erythema or drainage, no ecchymoses. glue intact. Assessment/Plan 1. Ductal carcinoma in situ (DCIS) of left breast (D05.12: Intraductal carcinoma in situ of left breast) doing well, negative margins, small focus; will refer to Oncology for recommendations regarding possible treatment with estrogen receptor modulator; call with problems/questions. Ordered: [facility] [place] 2. 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 Medications alendronate 35 mg Tab, 35 mg= 1 tab(s), Oral, qWeek amLODIPine 10 mg Tab, 10 mg= 1 tab(s), Oral, Daily hydrochlorothiazide-lis inopril 25 mg-20 mg Tab, 1 tab(s), Oral, Daily levothyroxine 25 mcg (0.025 mg) Tab, 25 mcg= 1 tab(s), Oral, Daily Potassium Chloride (Vaj-Qmxa-Cjp M20) 20 mEq oral tablet, extended release, 20 mEq= 1 tab(s), Oral, Daily Allergies No Known Allergies No Known Medication Allergies Social History Alcohol - Denies Alcohol Use, 03/08/2022 Substance Abuse - Denies Substance Abuse, 03/08/2022 Tobacco Never (less than 100 in lifetime) Tobacco Use:. Never Smokeless Tobacco Use:., 03/08/2022 Family History Family history is negative Immunizations Vaccine Date Status Comments influenza virus vaccine, inactivated 05/02/2022 Recorded SARS-CoV-2 (COVID-19) mRNA BNT-162b2 vax 10/02/2020 Recorded 2022-06-20: TPV40 SARS-CoV-2 (COVID-19) mRNA BNT-162b2 vax 09/11/2020 Recorded 2022-06-20: TPV40 Normal [facility] Comment on above: Result Comment: Elec tronically Signed By: TEODORO MALIK, Christopher Ragland\Date and Time Signed: 07/21/22 15:46 EST RAD - Ultrasound Reporton RAD - Ultrasound Report [id number]#1.00C D:127 Normal [facility] US GUIDE LOCAL BREAST LTon 0 07-20-2022 US GUIDE LOCAL BREAST LT Begin Addendum #1 COLLECTED DATE/TIME: 07/12/2022 12:00 EST Final Diagnosis Report for [facility] [place] LEFT BREAST MASS 3 O'CLOCK POSITION; EXCISION: -ATYPICAL DUCTAL PROLIFERATION, BORDERING DUCTAL CARCINOMA IN SITU WITHIN A FIBROADENOMATOUS LESION, SEE NOTE. 07/20/2022 sent to above surgeon per pathology (BM). Original Report EXAM: US GUIDE LOCAL BREAST LT HISTORY: Infiltrating duct carcinoma COMPARISON: Ultrasound breast left 05/18/2022, ultrasound breast biopsy 06/05/2022 TECHNIQUE: After obtaining informed consent, ultrasound-guided biopsy was performed in the usual sterile manner. The location of the biopsy was then marked as indicated below. FINDINGS: TARGET LESION: Biopsy marker clip left breast 2:00 adjacent chest wall. LOCATION: Left breast 2:00. NEEDLE: 5 cm Kopans hookwire. Medication: Buffered 1% Lidocaine with epinephrine administered locally. Complications: None. IMPRESSION: 1. Technically successful hookwire localization. Normal [facility] Pathology Noteon 07-19-2022 Pathology Note [id number]#1.00C D:127 Normal [facility] Operative Reporton Operative Report [id number]#1.00C D:127 Normal [facility] RAD - Ultrasound Reporton RAD - Ultrasound Report [id number]#1.00C D:127 Normal [facility] US BREAST SPECIMENon 023 US BREAST SPECIMEN EXAM: US BREAST SPECIMEN HISTORY: Infiltrating duct carcinoma of breast COMPARISON: Ultrasound breast biopsy 06/05/2022, ultrasound-guided wire localization 07/12/2022 TECHNIQUE: Ultrasound evaluation of surgical specimen. FINDINGS: Biopsy marker clip is present within the small soft tissue specimen. IMPRESSION: 1. Biopsy marker clip is present within the surgical specimen. Electronically authenticated by: SHANI MATOS Date: 2022-07-12 13:51 Normal [facility] ECG 12-Leadon 07-05-2022 ECG 12-Lead [id number]#1.00C D:127 Normal [facility] Lab Reportson 07-05-2022 Lab Reports [id number]#1.00C D:127 Normal [facility] PROF CHEM 8 (BAS METB)on Anion gap [Moles/Vol] 13.7 mmol/L Normal [facility] Comment on above: Performed By: #### B MP #### [facility] [address] [place] [address] [address] Mitesh Anthony Calcium [Mass/Vol] 9.6 mg/dL Normal 8.5-10.1 [facility] Comment on above: Performed By: #### B MP #### [facility] [address] [place] [address] [address] Mitesh Anthony Chloride [Moles/Vol] 108 mmol/L Critically high 98-107 [facility] Comment on above: Performed By: #### B MP #### [facility] [address] [place] [address] [address] Mitesh Anthony CO2 [Moles/Vol] 27.5 mmol/L Normal 21.0-32.0 [facility] Comment on above: Performed By: #### B MP #### [facility] [address] [place] [address] [address] Mitesh Anthony Creatinine [Mass/Vol] 1.36 mg/dL Critically high 0.55-1.02 [facility] Comment on above: Performed By: #### B MP #### [facility] [address] [place] [address] [address] Mitesh Anthony EGFR-AF GREENLANDIC 50 mL/min/1.73m2 Critically low >=60 [facility] Comment on above: Performed By: #### B MP #### [facility] [address] [place] [address] [address] Mitesh Anthony EGFR-NON AF GREENLANDIC 41 mL/min/1.73m2 Critically low >=60 [facility] Comment on above: Performed By: #### B MP #### [facility] [address] [place] [address] [address] Mitesh Anthony Glucose [Mass/Vol] 132 mg/dL Critically high 74-106 [facility] Comment on above: Performed By: #### B MP #### [facility] [address] [place] [address] [address] Mitesh Anthony Potassium [Moles/Vol] 4.2 mmol/L Normal 3.5-5.1 [facility] Comment on above: Performed By: #### B MP #### [facility] [address] [place] [address] [address] Mitesh Anthony Sodium [Moles/Vol] 145 mmol/L Normal 136-145 [facility] Comment on above: Performed By: #### B MP #### [facility] [address] [place] [address] [address] Mitesh Anthony Urea nitrogen [Mass/Vol] 32.0 mg/dL Critically high 7.0-18.0 [facility] Comment on above: Performed By: #### B MP #### [facility] [address] [place] [address] [address] Mitesh Anthony Urea nitrogen/Creatinine [Mass ratio] 23.5 mg/mg Normal [facility] Comment on above: Performed By: #### B MP #### [facility] [address] [place] [address] [address] Mitesh Anthony Consent for Procedure/Surger yon 06-23-2022 Consent for Procedure/Surgery [id number] D:127 Normal [facility] Outside Mammographyon 2022 Outside Mammography [id number]#1.00C D:127 Normal [facility] Outside Mammography [id number]#1.00C D:127 Normal [facility] Pathology Noteon 06-19-2022 Pathology Note [id number]#1.00C D:127 Normal [facility] RAD - Ultrasound Reporton RAD - Ultrasound Report [id number]#1.00C D:127 Normal [facility] US VAC ASST BX BREAST LT W C LIPon 06-16-2022 US VAC ASST BX BREAST LT W CLIP Begin Addendum #1 COLLECTED DATE/TIME: 06/05/2022 14:29 EST Final Diagnosis Report for [facility] [place], [place] LEFT BREAST 2 O'CLOCK MASS, ULTRASOUND-GUIDED CORE BIOPSY: -ATYPICAL DUCTAL PROLIFERATION BORDERLINE DUCTAL CARCINOMA IN SITU WITHIN A FIBROADENOMA. COMMENT: Deeper sections have been examined. Immunohistochemical stains for p63 and myosin heavy chain have been used for the evaluation of this specimen. There is no evidence of invasive tumor. This case has been reviewed by Dr. Haque, who concurs with the above diagnosis. 06/09/[address] Toscano. 06/15/2022 verified with Sandra that report was present in office (). Original Report EXAM: US VAC ASST BX BREAST LT W CLIP HISTORY: Lump in left breast COMPARISON: Ultrasound breast left 05/18/2022 TECHNIQUE: After obtaining informed consent, ultrasound-guided biopsy was performed in the usual sterile manner. The location of the biopsy was then marked as indicated below. FINDINGS: Specimen #, Location: 3 core samples; left breast 2:00 7 x 7 x 3 mm hypoechoic mass versus complex cyst Biopsy Needle: 13 gauge vacuum core biopsy needle. Marker(s): A single metallic marker was placed in the appropriate targeted location. Medication: Buffered 1% Lidocaine with epinephrine administered locally. Complications: None. Pathology: Pending. IMPRESSION: 1. Uneventful ultrasound-guided breast biopsy. 2. Pathology results are pending. An addendum to this report will be provided after pathology results are available. Normal [facility] MAMMO POST BIOPSY LEFTon MAMMO POST BIOPSY LEFT Patient: LINDSEY POLO Exam Date: 06/05/2022 : 1970 Gender:F Ordering : DR JANIE TOSCANO . Admission #: [id number] Family : Order #: [id number] CLICK HERE TO VIEW EXAM RADIOLOGY REPORT PROCEDURE: MAMMOGRAM POST BIOPSY IMAGES COMPARISON: MG MAMM LT DIAG FU, 05/18/2022. MG MAMM SCREEN 3D JULIANNA CAD, 04/24/2022. US BREAST LEFT LIMITED, 05/18/2022. INDICATIONS: Lump in left breast BREAST COMPOSITION: FINDINGS: BIOPSY MARKER: A metallic marker has been placed in the targeted location within the upper-outer quadrant of the left breast. BREAST FINDINGS: Expected post biopsy findings. RECOMMENDATIONS: Dictated by: Shani Matos M.D. on 06/05/2022 at 15:58 Approved by: Shani Matos M.D. on 06/05/2022 at 15:59 Normal [facility] MG MAMM LT DIAG FUon 022 MG MAMM LT DIAG FU Patient: LINDSEY POLO Exam Date: 05/18/2022 : 1970 Gender:F Ordering : DR JANIE TOSCANO . Admission #: [id number] Family : Order #: [id number] CLICK HERE TO VIEW EXAM RADIOLOGY REPORT PROCEDURE: MAMMOGRAM LEFT DIAGNOSTIC DIGITAL FOLLOW UP, 05/18/2022, 13:05 ULTRASOUND BREAST LEFT LIMITED, 05/18/2022, 13:59 COMPARISON: MG MAMM SCREEN 3D JULIANNA CAD, 04/24/2022. INDICATIONS: Mammography abnormal Calculator Name NCI Breast Cancer Risk Assessment Tool 5 Year Breast Cancer Risk Not Reported. Lifetime Breast Cancer Risk Not Reported. Personal Breast Cancer No Personal Ovarian Cancer No Treatments None Family Cancers None LOCATION: [facility] BREAST COMPOSITION: Heterogeneously dense,which may obscure small masses. FINDINGS: DIAGNOSTIC CATEGORY 4--SUSPICIOUS FOR MALIGNANCY. FINDING DOES NOT EXHIBIT CLASSIC FINDINGS OF BREAST CANCER: LEFT BREAST: Spot magnification views demonstrate persistent small opacity within posterior lateral breast. Ultrasound evaluation demonstrates a 7 x 7 x 3 mm hypoechoic circumscribed mass at the 2 o'clock position, 3.3 cm from the nipple, adjacent the chest wall. Ultrasound-guided tissue sampling is recommended. . RECOMMENDATIONS: ULTRASOUND-GUIDED CORE BIOPSY: LEFT BREAST PLEASE NOTE: A NORMAL MAMMOGRAM DOES NOT EXCLUDE THE POSSIBILITY OF BREAST CANCER. A CLINICALLY SUSPICIOUS PALPABLE LUMP SHOULD BE BIOPSIED. Dictated by: Shani Matos M.D. on 05/18/2022 at 14:19 Approved by: Shani Matos M.D. on 05/18/2022 at 14:31 Normal [facility] US BREAST LEFT LIMITEDon US BREAST LEFT LIMITED Patient: LINDSEY POLO Exam Date: 05/18/2022 : 1970 Gender:F Ordering : DR JANIE TOSCANO . Admission #: [id number] Family : Order #: [id number] CLICK HERE TO VIEW EXAM RADIOLOGY REPORT PROCEDURE: MAMMOGRAM LEFT DIAGNOSTIC DIGITAL FOLLOW UP, 05/18/2022, 13:05 ULTRASOUND BREAST LEFT LIMITED, 05/18/2022, 13:59 COMPARISON: MG MAMM SCREEN 3D JULIANNA CAD, 04/24/2022. INDICATIONS: Mammography abnormal Calculator Name NCI Breast Cancer Risk Assessment Tool 5 Year Breast Cancer Risk Not Reported. Lifetime Breast Cancer Risk Not Reported. Personal Breast Cancer No Personal Ovarian Cancer No Treatments None Family Cancers None LOCATION: [facility] BREAST COMPOSITION: Heterogeneously dense,which may obscure small masses. FINDINGS: DIAGNOSTIC CATEGORY 4--SUSPICIOUS FOR MALIGNANCY. FINDING DOES NOT EXHIBIT CLASSIC FINDINGS OF BREAST CANCER: LEFT BREAST: Spot magnification views demonstrate persistent small opacity within posterior lateral breast. Ultrasound evaluation demonstrates a 7 x 7 x 3 mm hypoechoic circumscribed mass at the 2 o'clock position, 3.3 cm from the nipple, adjacent the chest wall. Ultrasound-guided tissue sampling is recommended. . RECOMMENDATIONS: ULTRASOUND-GUIDED CORE BIOPSY: LEFT BREAST PLEASE NOTE: A NORMAL MAMMOGRAM DOES NOT EXCLUDE THE POSSIBILITY OF BREAST CANCER. A CLINICALLY SUSPICIOUS PALPABLE LUMP SHOULD BE BIOPSIED. Dictated by: Shani Matos M.D. on 05/18/2022 at 14:19 Approved by: Shani Matos M.D. on 05/18/2022 at 14:31 Normal [facility] GLYCOHEMOGLOBIN A1Con 2021 ADA RECOMMENDATION SEE BELOW Normal [facility] Comment on above: Result Comment: ADA RECOMMENDED LIMIT 4.0 - 6.0 ADA THERAPEUTIC TARGET < 7.0 ACTION SUGGESTED > 7.0 Performed By: #### A 1C #### [facility] [address] [address] [address] Mitesh Anthony Glucose [Mass/Vol] 143 mg/dL Normal [facility] Comment on above: Performed By: #### A 1C #### [facility] [address] [address] [address] Mitesh Anthony HbA1c (Bld) [Mass fraction] 6.6 % Critically high 4.5-6.2 [facility] Comment on above: Performed By: #### A 1C #### [facility] [address] [address] [address] Mitesh Anthony LIPID PROFILEon 05-16-2022 CHOL-HDL RATIO NORM SEE BELOW Normal [facility] Comment on above: Result Comment: 3.3 - 4.4 LOW RISK 4.4 - 7.1 AVERAGE RISK 7.1 - 11.0 MODERATE RISK >11.0 HIGH RISK Performed By: #### L IPID, CMP #### [facility] [address] [address] [address] Mitesh Anthony Cholesterol [Mass/Vol] 234 mg/dL Critically high <=200 [facility] Comment on above: Performed By: #### L IPID, CMP #### [facility] [address] [address] [address] Mitesh Anthony Cholesterol in HDL [Mass/Vol] 108 mg/dL Critically high 40-60 [facility] Comment on above: Performed By: #### L IPID, CMP #### [facility] [address] [address] [address] Mitesh Anthony Cholesterol in LDL [Mass/Vol] 111.2 mg/dL Normal [facility] Comment on above: Performed By: #### L IPID, CMP #### [facility] [address] [address] [address] Mitesh Anthony Cholesterol.total/C holesterol in HDL [Mass ratio] 2.2 {ratio} Normal [facility] Comment on above: Performed By: #### L IPID, CMP #### [facility] [address] [address] [address] Mitesh Anthony HDL NORMAL > or = 60 mg/dl - LO W CARDIOVASCULAR RISK <40 mg/dl - HIGH CARDIOVASCULAR RISK Normal [facility] Comment on above: Performed By: #### L IPID, CMP #### [facility] [id number] Mitesh Anthony LDL CALC NORMAL SEE BELOW Normal [facility] Comment on above: Result Comment: <100 mg/dl OPTIMAL 100 - 129 mg/dl NEAR OR ABOVE OPTIMAL 130 - 159 mg/dl BORDERLINE HIGH 160 - 189 mg/dl HIGH >190 mg/dl VERY HIGH Performed By: #### L IPID, CMP #### [facility] [address] [address] [address] Mitesh Anthony Triglyceride [Mass/Vol] 74 mg/dL Normal <=150 [facility] Comment on above: Performed By: #### L IPID, CMP #### [facility] [address] [address] [address] Mitesh Anthony VLDL CALC 14.8 mg/dL Normal [facility] Comment on above: Performed By: #### L IPID, CMP #### [facility] [address] [address] [address] Mitesh Anthony PROF 14(COMP METB)on 022 Albumin [Mass/Vol] 4.2 g/dL Normal 3.4-5.0 [facility] Comment on above: Performed By: #### L IPID, CMP #### [facility] [address] [place] [address] Dr. Mitesh Anthony Albumin/Globulin [Mass ratio] 1.2 {ratio} Normal [facility] Comment on above: Performed By: #### L IPID, CMP #### [facility] [address] [place] [address] Dr. Mitesh Anthony ALP [Catalytic activity/Vol] 114 U/L Normal 46-116 [facility] Comment on above: Performed By: #### L IPID, CMP #### [facility] [address] [place] [address] Dr. Mitesh Anthony ALT [Catalytic activity/Vol] 39 U/L Normal 14-59 [facility] Comment on above: Performed By: #### L IPID, CMP #### [facility] [address] [place] [address] Dr. Mitesh Anthony Anion gap [Moles/Vol] 12.2 mmol/L Normal [facility] Comment on above: Performed By: #### L IPID, CMP #### [facility] [address] [place] [address] Dr. Mitesh Anthony AST [Catalytic activity/Vol] 26 U/L Normal 15-37 [facility] Comment on above: Performed By: #### L IPID, CMP #### [facility] [address] [address] [address] Mitesh Anthony Bilirubin [Mass/Vol] 0.4 mg/dL Normal 0.2-1.0 [facility] Comment on above: Performed By: #### L IPID, CMP #### [facility] [address] [place] [address] Dr. Mitesh Anthony Calcium [Mass/Vol] 9.4 mg/dL Normal 8.5-10.1 [facility] Comment on above: Performed By: #### L IPID, CMP #### [facility] [address] [place] [address] Dr. Mitesh Anthony Chloride [Moles/Vol] 102 mmol/L Normal 98-107 [facility] Comment on above: Performed By: #### L IPID, CMP #### [facility] [address] [place] [address] Dr. Mitesh Anthony CO2 [Moles/Vol] 29.5 mmol/L Normal 21.0-32.0 [facility] Comment on above: Performed By: #### L IPID, CMP #### [facility] [address] [place] [address] Dr. Mitesh Anthony Creatinine [Mass/Vol] 1.29 mg/dL Critically high 0.55-1.02 [facility] Comment on above: Performed By: #### L IPID, CMP #### [facility] [address] [place] [address] Dr. Mitesh Anthony EGFR-AF GREENLANDIC 53 mL/min/1.73m2 Critically low >=60 [facility] Comment on above: Performed By: #### L IPID, CMP #### [facility] [address] [place] [address] Dr. Mitesh Anthony EGFR-NON AF GREENLANDIC 44 mL/min/1.73m2 Critically low >=60 [facility] Comment on above: Performed By: #### L IPID, CMP #### [facility] [address] [place] [address] Dr. Mitesh Anthony Globulin (S) [Mass/Vol] 3.5 g/dL Normal [facility] Comment on above: Performed By: #### L IPID, CMP #### [facility] [address] [place] [address] Dr. Mitesh Anthony Glucose [Mass/Vol] 113 mg/dL Critically high 74-106 [facility] Comment on above: Performed By: #### L IPID, CMP #### [facility] [address] [place] [address] Dr. Mitesh Anthony Potassium [Moles/Vol] 3.7 mmol/L Normal 3.5-5.1 [facility] Comment on above: Performed By: #### L IPID, CMP #### [facility] [address] [place] [address] Dr. Mitehs Anthony Protein [Mass/Vol] 7.7 g/dL Normal 6.4-8.2 [facility] Comment on above: Performed By: #### L IPID, CMP #### [facility] [address] [place] [address] Dr. Mitesh Anthony Sodium [Moles/Vol] 140 mmol/L Normal 136-145 [facility] Comment on above: Performed By: #### L IPID, CMP #### [facility] [address] [place] [address] Dr. Mitesh Anthony Urea nitrogen [Mass/Vol] 23.0 mg/dL Critically high 7.0-18.0 [facility] Comment on above: Performed By: #### L IPID, CMP #### [facility] [address] [place] [address] Dr. Mitesh Anthony Urea nitrogen/Creatinine [Mass ratio] 17.8 mg/mg Normal [facility] Comment on above: Performed By: #### L IPID, CMP #### [facility] [address] [place] [address] Dr. Mitesh Anthony MG MAMM SCREEN 3D JULIANNA CADon 04-24-2022 MG MAMM SCREEN 3D JULIANNA CAD Patient: LINDSEY POLO Exam Date: 04/24/2022 : 1970 Gender:F Ordering : DR JANIE TOSCANO . Admission #: [id number] Family : Order #: [id number] CLICK HERE TO VIEW EXAM RADIOLOGY REPORT PROCEDURE: MAMMOGRAM SCREENING 3D BILATERAL CAD COMPARISON: None. INDICATIONS: Screening mammography Calculator Name NCI Breast Cancer Risk Assessment Tool 5 Year Breast Cancer Risk Not Reported. Lifetime Breast Cancer Risk Not Reported. Personal Breast Cancer No Personal Ovarian Cancer No Treatments None Family Cancers None LOCATION: [facility] BREAST COMPOSITION: Heterogeneously dense,which may obscure small masses. FINDINGS: DIAGNOSTIC CATEGORY 0--INCOMPLETE: NEED ADDITIONAL IMAGING EVALUATION. RIGHT BREAST: No significant suspicious finding. LEFT BREAST: 5 mm geographic shaped opacity within the posterior upper-outer quadrant, approximately 9 o'clock. 4 mm partially circumscribed mass within the mid breast lower-outer quadrant. Spot magnification views and ultrasound evaluation recommended. RECOMMENDATIONS: ADDITIONAL MAMMOGRAPHIC VIEWS REQUIRED: LEFT BREAST - LEFT CRANIOCAUDAL SPOT MAGNIFICATION VIEW - LEFT OBLIQUE SPOT MAGNIFICATION VIEW - ULTRASOUND: LEFT BREAST PLEASE NOTE: A NORMAL MAMMOGRAM DOES NOT EXCLUDE THE POSSIBILITY OF BREAST CANCER. A CLINICALLY SUSPICIOUS PALPABLE LUMP SHOULD BE BIOPSIED. Dictated by: Shani Matos M.D. on 04/25/2022 at 12:52 Approved by: Shani Matos M.D. on 04/25/2022 at 13:20 Normal [facility] US SINGLE QUAD RT UPPERon US SINGLE QUAD RT UPPER EXAMINATION: US SINGLE QUAD RT UPPER HISTORY: High enzyme level in serum ; abnormal lab values COMPARISON: No relevant comparison available. TECHNIQUE: Transabdominal evaluation of the right upper quadrant. FINDINGS: LIVER: Normal size and echotexture. Color Doppler demonstrates patent hepatic veins. PORTAL VEIN: Duplex Doppler demonstrates normal hepatopetal flow pattern with flow velocity averaging 46 cm/s. GALLBLADDER: No visible gallstones, wall thickening, or pericholecystic free fluid. Negative sonographic Stephens's sign. BILIARY: No abnormal dilation or stones. Common bile duct diameter is within normal limits. PANCREASE: No visible mass, abnormal atrophy, or duct dilation. KIDNEY: No hydronephrosis. No visible mass or stones. Size: 8.5 x 3.8 x 3.5 cm IMPRESSION: 1. No abnormal or suspicious findings to account for patient's symptoms. Electronically authenticated by: SHANI MATOS Date: 2022-04-24 19:32 Normal [facility] XR DEXA BONE DENSITYon 04-24 XR DEXA BONE DENSITY EXAMINATION: XR DEXA BONE DENSITY, 04/24/2022 10:56 AM EST HISTORY: Menopause present COMPARISON: None. TECHNIQUE: Dual-energy X-ray absorptiometry (DEXA) bone density study performed for the axial skeleton. FINDINGS: SPINE ANALYSIS: Average bone mineral density is 0.926 g/cm2. T-score (standard deviation relative to young adult mean): -2.1 . HIP ANALYSIS: Lowest bone mineral density is within the left femoral trochanter, 0.50 g/cm2. T-score (standard deviation relative to young adult mean): -3.0 . IMPRESSION: World [employer] Organization Classification: Osteoporosis - High Fracture Risk Electronically authenticated by: SHANI MATOS Date: 2022-04-24 16:36 Normal [facility] Outside Colonoscopyon 2021 Outside Colonoscopy [id number]#1.00C D:127 Normal [facility] Reminderson 04-13-2022 Reminders - From: Natacha Perea LPN To: GSN - Clinical; Sent: 04/13/2022 15:39:57 EST Show up: 03/12/2032 07:00:00 EDT Subject: colonoscopy recall Due Date/Time: 04/12/2032 07:00:00 EST Reminder/Recall Patient is due for screening colonoscopy 04/12/2032. Normal [facility] Lab Reportson 04-10-2022 Lab Reports [id number]#1.00C D:127 Normal [facility]on 03-28 SARS-CoV-2 (COVID-19) RNA RITCHIE+probe Ql (Unsp spec) Not detected Normal NOT DETECTED [facility] Comment on above: Result Comment: This test is not yet approved or cleared by the [place] FDA. When there are no FDA-approved or cleared tests available, and other criteria are met, FDA can make tests available under an emergency access mechanism called an Emergency Use Authorization (EUA). The EUA for this test is supported by the [place] of Health and Human Service's (HHS's) declaration that circumstances exist to justify the emergency use of in vitro diagnostics for the detection and/or diagnosis of the virus that causes COVID-19. This EUA will remain in effect (meaning this test can be used) for the duration of the COVID-19 declaration justifying emergency of IVDs, unless it is terminated or revoked by FDA (after which the test may no longer be used). When diagnostic testing is negative, the possibility of a false negative should be considered in the context of a patient's recent exposures and the presence of clinical signs and symptoms consistent with SARS-CoV-2. Performed By: #### L IPID, CMP #### [facility] [address] [place] [address] Dr. Mitesh Anthony Pre-Certification Formon Pre-Certification Form [id number] CD:127 Normal [facility] Consent for Procedure/Surger yon 03-09-2022 Consent for Procedure/Surgery [id number]#1.00C D:127 [facility] Ambulatory Visit Summaryon 1 Ambulatory Visit Summary CHRISTLINDSEY :1970 Visit Date:03/08/2022 Ambulatory Visit Instructions Your Care Team Attending Physician - Christopher MEADOWS MD Primary Care Physician - MR. LEONARDO BLACKBURN This Is Your Medications List Contact prescribing physician if questions or concerns amlodipine (amLODIPine 10 mg Tab) hydrochlorothiazide-lis inopril (hydrochlorothiazide-li sinopril 25 mg-20 mg Tab) levothyroxine (levothyroxine 25 mcg (0.025 mg) Tab) potassium chloride (Potassium Chloride (Osa-Bzww-Plh M20) 20 mEq oral tablet, extended release) simvastatin (simvastatin 20 mg Tab) Procedures Performed None. Discharge Vitals Heart Rate (Peripheral) 72 Respiratory Rate 16 Blood Pressure 90/60 Height 137 cm Height 54 in Weight 30.8 kg Weight 67.76 lb BMI 16.41 Medications What How Much When Instructions Unchanged amlodipine (amLODIPine 10 mg Tab) 1 Tablets By Mouth Every day Contact prescribing physician if questions or concerns Unchanged hydrochlorothiazide-lis inopril (hydrochlorothiazide-li sinopril 25 mg-20 mg Tab) 1 Tablets By Mouth Every day Contact prescribing physician if questions or concerns Unchanged levothyroxine (levothyroxine 25 mcg (0.025 mg) Tab) 1 Tablets By Mouth Every day Contact prescribing physician if questions or concerns Unchanged potassium chloride (Potassium Chloride (Pfn-Nwyb-Vvh M20) 20 mEq oral tablet, extended release) 1 Tablets By Mouth Every day Contact prescribing physician if questions or concerns Unchanged simvastatin (simvastatin 20 mg Tab) 1 Tablets By Mouth Once a day (at bedtime) Contact prescribing physician if questions or concerns Allergies No Known Allergies No Known Medication Allergies Problems Ongoing - Any problem that you are currently receiving treatment for. BMI less than 19,adult HTN (hypertension) Hyperlipidemia Hypothyroidism Intellectual disability Sinus tachycardia Underweight Historical - Any problem that you are no longer receiving treatment for. Hypokalemia Normal [facility] PAP ACOG PANEL 2: 30 to 65on 03-08-2022 . . Normal [facility] Comment on above: Result Comment: Perf ormed at: WB Performed By: #### [id number] #### [facility] [address] [address] [address] Mitesh Anthony Age Gdln ACOG Testing 30-65 Normal [facility] Comment on above: Performed By: #### [id number] #### [facility] [address] [address] [address] Mitesh Anthony DIAGNOSIS: Comment Normal [facility] Comment on above: Result Comment: NEGA TIVE FOR INTRAEPITHELIAL LESION OR MALIGNANCY. Performed at: WB Performed By: #### [id number] #### [facility] [address] [address] [address] Mitesh Anthony HPV Aptima Negative Normal Negative [facility] Comment on above: Result Comment: This nucleic acid amplification test detects fourteen high-risk HPV types (16,18,31,33,35,39,45,51,52,56,58,59,66,68) without differentiation. Performed at: =G Performed By: #### [id number] #### [facility] [address] [place] [address] Dr. Mitesh Anthony Methodology: Comment Normal [facility] Comment on above: Result Comment: This liquid based ThinPrep(R) pap test was screened with the use of an image guided system. Performed at: WB Performed By: #### [id number] #### [facility] [address] [place] [address] Dr. Mitesh Anthony Note: Comment Normal [facility] Comment on above: Result Comment: The Pap smear is a screening test designed to aid in the detection of premalignant and malignant conditions of the uterine cervix. It is not a diagnostic procedure and should not be used as the sole means of detecting cervical cancer. Both false-positive and false-negative reports do occur. . Performed at: WB Performed By: #### [id number] #### [facility] [address] [place] [address] Dr. Mitesh Anthony Performed by: Comment Normal [facility] Comment on above: Result Comment: Jamel Bishop Service Inspector (ASCP) Performed at: WB Performed By: #### [id number] #### [facility] [address] [place] [address] Dr. Mitesh Anthony Specimen adequacy: Comment Normal [facility] Comment on above: Result Comment: Sati sfactory for evaluation. Endocervical and/or squamous metaplastic cells (endocervical component) are present. Performed at: WB Performed By: #### [id number] #### [facility] [address] [place] [address] Dr. Mitesh Anthony THYROID PEROXIDASE ABon 01-27 Thyroid Peroxidase (TPO) Ab 8 IU/mL Normal 0-34 [facility] Comment on above: Performed By: #### T POAB #### [facility] [address] [place] [address] Dr. Mitesh Anthony HEPATITIS C ANTIBODYon 02-17 Hep C Virus Ab <0.1 Normal 0.0-0.9 [facility] Comment on above: Result Comment: Nega tive: < 0.8 Indeterminate: 0.8 - 0.9 Positive: > 0.9 . HCV antibody alone does not differentiate between previous resolved infection and active infection. The CDC and current clinical guidelines recommend that a positive HCV antibody result be followed up with an HCV RNA test to support the diagnosis of acute HCV infection. [facility] offers Hepatitis C Virus (HCV) RNA, Diagnosis, RITCHIE (805234) and Hepatitis C Virus (HCV) Antibody with reflex to Quantitative Real-time PCR ([id number]). Performed By: #### L IPID, CMP #### [facility] [address] [place] [address] Dr. Mitesh Anthony Physician Referralon 022 Physician Referral [id number]#1.00C D:127 Normal [facility] CBC AUTO DIFFon 02-16-2022 BASO # 0.0 103/ul Normal 0.0-0.1 [facility] Comment on above: Performed By: #### L IPID, CMP #### [facility] [address] [place] [address] Dr. Mitesh Anthony Basophils/100 WBC (Bld) 0.5 % Normal 0.2-2.0 [facility] Comment on above: Performed By: #### L IPID, CMP #### [facility] [address] [place] [address] Dr. Mitesh Anthony EO # 0.1 103/ul Normal 0.0-0.7 [facility] Comment on above: Performed By: #### L IPID, CMP #### [facility] [address] [place] [address] Dr. Mitesh Anthony Eosinophils/100 WBC (Bld) 2.1 % Normal 0.9-7.0 [facility] Comment on above: Performed By: #### L IPID, CMP #### [facility] [address] [place] [address] Dr. Mitesh Anthony Erythrocyte distribution width (RBC) [Ratio] 14.4 % Normal 11.0-15.0 [facility] Comment on above: Performed By: #### L IPID, CMP #### [facility] [address] [place], [place] [id number] Dr. Mitesh Anthony Hematocrit (Bld) [Volume fraction] 36.1 % Normal 36.0-48.0 [facility] Comment on above: Performed By: #### L IPID, CMP #### [facility] [address] [place] [address] Dr. Mitesh Anthony Hemoglobin (Bld) [Mass/Vol] 11.7 g/dL Critically low 12.0-16.0 [facility] Comment on above: Performed By: #### L IPID, CMP #### [facility] [address] [place] [address] Dr. Mitesh Anthony IG # 0.01 10e3/ul Normal 0.00-0.03 [facility] Comment on above: Performed By: #### L IPID, CMP #### [facility] [address] [place] [address] Dr. Mitesh Anthony IG % 0.2 % Normal 0.0-0.5 [facility] Comment on above: Performed By: #### L IPID, CMP #### [facility] [address] [place] [address] Dr. Mitesh Anthony LYMPH # 1.7 103/ul Normal 1.2-3.8 [facility] Comment on above: Performed By: #### L IPID, CMP #### [facility] [address] [place] [address] Dr. Mitesh Anthony Lymphocytes/100 WBC (Bld) 29.1 % Normal 20.5-60.0 [facility] Comment on above: Performed By: #### L IPID, CMP #### [facility] [address] [place] [address] Dr. Mitesh Anthony MANUAL DIFF REQ NO Normal [facility] Comment on above: Performed By: #### L IPID, CMP #### [facility] [address] [place] [address] Dr. Mitesh Anthony MCH (RBC) [Entitic mass] 30.5 pg Normal 26.7-34.0 [facility] Comment on above: Performed By: #### L IPID, CMP #### [facility] [address] [place] [address] Dr. Mitesh Anthony MCHC (RBC) [Mass/Vol] 32.4 g/dL Normal 29.9-35.2 [facility] Comment on above: Performed By: #### L IPID, CMP #### [facility] [address] [place] [address] Dr. Mitesh Anthony MCV (RBC) [Entitic vol] 94.0 fL Normal 81.0-99.0 [facility] Comment on above: Performed By: #### L IPID, CMP #### [facility] [address] [place] [address] Dr. Mitesh Anthony MONO # 0.5 103/ul Normal 0.3-0.8 [facility] Comment on above: Performed By: #### L IPID, CMP #### [facility] [address] [place] [address] Dr. Mitesh Anthony Monocytes/100 WBC (Bld) 8.0 % Normal 1.7-12.0 [facility] Comment on above: Performed By: #### L IPID, CMP #### [facility] [address] [place] [address] Dr. Mitesh Anthony NEUT # 3.5 103/ul Normal 1.4-6.5 [facility] Comment on above: Performed By: #### L IPID, CMP #### [facility] [address] [place] [address] Dr. Mitesh Anthony Neutrophils/100 WBC (Bld) 60.1 % Normal 43.0-75.0 [facility] Comment on above: Performed By: #### L IPID, CMP #### [facility] [address] [place] [address] Dr. Mitesh Anthony Platelet mean volume (Bld) [Entitic vol] 9.5 fL Normal 9.5-13.5 [facility] Comment on above: Performed By: #### L IPID, CMP #### [facility] [address] [place] [address] Dr. Mitesh Anthony PLT 260 103/ul Normal 150-450 [facility] Comment on above: Performed By: #### L IPID, CMP #### [facility] [address] [address] [address] Mitesh Anthony RBC 3.84 106/ul Critically low 4.20-5.40 [facility] Comment on above: Performed By: #### L IPID, CMP #### [facility] [address] [address] [address] Mitesh Anthony WBC 5.8 103/ul Normal 4.0-11.0 [facility] Comment on above: Performed By: #### L IPID, CMP #### [facility] [address] [address] [address] Mitesh Anthony FREE T4on 02-16-2022 Free T4 [Mass/Vol] 1.08 ng/dL Normal 0.76-1.46 [facility] Comment on above: Performed By: #### L IPID, CMP #### [facility] [address] [address] [address] Mitesh Anthony GLYCOHEMOGLOBIN A1Con 2021 ADA RECOMMENDATION SEE BELOW Normal [facility] Comment on above: Result Comment: ADA RECOMMENDED LIMIT 4.0 - 6.0 ADA THERAPEUTIC TARGET < 7.0 ACTION SUGGESTED > 7.0 Performed By: #### A 1C #### [facility] [address] [place] [address] Dr. Mitesh Anthony Glucose [Mass/Vol] 126 mg/dL Normal [facility] Comment on above: Performed By: #### A 1C #### [facility] [address] [place] [address] Dr. Mitesh Anthony HbA1c (Bld) [Mass fraction] 6.0 % Normal 4.5-6.2 [facility] Comment on above: Performed By: #### A 1C #### [facility] [address] [place] [address] Dr. Mitesh Anthony LIPID PROFILEon 02-16-2022 CHOL-HDL RATIO NORM SEE BELOW Normal [facility] Comment on above: Result Comment: 3.3 - 4.4 LOW RISK 4.4 - 7.1 AVERAGE RISK 7.1 - 11.0 MODERATE RISK >11.0 HIGH RISK Performed By: #### L IPID, CMP #### [facility] [address] [address] [address] Mitesh Anthony Cholesterol [Mass/Vol] 233 mg/dL Critically high <=200 [facility] Comment on above: Performed By: #### L IPID, CMP #### [facility] [address] [address] [address] Mitesh Anthony Cholesterol in HDL [Mass/Vol] 97 mg/dL Critically high 40-60 [facility] Comment on above: Performed By: #### L IPID, CMP #### [facility] [address] [address] [address] Mitesh Anthony Cholesterol in LDL [Mass/Vol] 113.0 mg/dL Normal [facility] Comment on above: Performed By: #### L IPID, CMP #### [facility] [address] [address] [address] Mitesh Anthony Cholesterol.total/C holesterol in HDL [Mass ratio] 2.4 {ratio} Normal [facility] Comment on above: Performed By: #### L IPID, CMP #### [facility] [address] [address] [address] Mitesh Anthony HDL NORMAL > or = 60 mg/dl - LO W CARDIOVASCULAR RISK <40 mg/dl - HIGH CARDIOVASCULAR RISK Normal [facility] Comment on above: Performed By: #### L IPID, CMP #### [facility] [address] [address] [address] Mitesh Anthony LDL CALC NORMAL SEE BELOW Normal [facility] Comment on above: Result Comment: <100 mg/dl OPTIMAL 100 - 129 mg/dl NEAR OR ABOVE OPTIMAL 130 - 159 mg/dl BORDERLINE HIGH 160 - 189 mg/dl HIGH >190 mg/dl VERY HIGH Performed By: #### L IPID, CMP #### [facility] [address] [address] [address] Mitesh Anthony Triglyceride [Mass/Vol] 115 mg/dL Normal <=150 [facility] Comment on above: Performed By: #### L IPID, CMP #### [facility] [address] [place] [address] Dr. Mitesh Anthony VLDL CALC 23.0 mg/dL Normal [facility] Comment on above: Performed By: #### L IPID, CMP #### [facility] [address] [place] [address] Dr. Mitesh Anthony PROF 14(COMP METB)on 022 Albumin [Mass/Vol] 4.3 g/dL Normal 3.4-5.0 [facility] Comment on above: Performed By: #### L IPID, CMP #### [facility] [address] [place] [address] Dr. Mitesh Anthony Albumin/Globulin [Mass ratio] 1.3 {ratio} Normal [facility] Comment on above: Performed By: #### L IPID, CMP #### [facility] [address] [place] [address] Dr. Mitesh Anthony ALP [Catalytic activity/Vol] 100 U/L Normal 46-116 [facility] Comment on above: Performed By: #### L IPID, CMP #### [facility] [address] [place] [address] Dr. Mitesh Anthony ALT [Catalytic activity/Vol] 110 U/L Critically high 14-59 [facility] Comment on above: Performed By: #### L IPID, CMP #### [facility] [address] [place] [address] Dr. Mitesh Anthony Anion gap [Moles/Vol] 12.4 mmol/L Normal [facility] Comment on above: Performed By: #### L IPID, CMP #### [facility] [address] [place] [address] Dr. Mitesh Anthony AST [Catalytic activity/Vol] 48 U/L Critically high 15-37 [facility] Comment on above: Performed By: #### L IPID, CMP #### [facility] [address] [place] [address] Dr. Mitesh Anthony Bilirubin [Mass/Vol] 0.4 mg/dL Normal 0.2-1.0 [facility] Comment on above: Performed By: #### L IPID, CMP #### [facility] [address] [address] [address] Mitesh Anthony Calcium [Mass/Vol] 9.3 mg/dL Normal 8.5-10.1 [facility] Comment on above: Performed By: #### L IPID, CMP #### [facility] [address] [address] [address] Mitesh Anthony Chloride [Moles/Vol] 106 mmol/L Normal 98-107 [facility] Comment on above: Performed By: #### L IPID, CMP #### [facility] [address] [address] [address] Mitesh Anthony CO2 [Moles/Vol] 27.6 mmol/L Normal 21.0-32.0 [facility] Comment on above: Performed By: #### L IPID, CMP #### [facility] [address] [address] [address] Mitesh Anthony Creatinine [Mass/Vol] 1.23 mg/dL Critically high 0.55-1.02 [facility] Comment on above: Performed By: #### L IPID, CMP #### [facility] [address] [address] [address] Mitesh Anthony EGFR-AF GREENLANDIC 56 mL/min/1.73m2 Critically low >=60 [facility] Comment on above: Performed By: #### L IPID, CMP #### [facility] [address] [address] [address] Mitesh Anthony EGFR-NON AF GREENLANDIC 46 mL/min/1.73m2 Critically low >=60 [facility] Comment on above: Performed By: #### L IPID, CMP #### [facility] [address] [address] [address] Mitesh Anthony Globulin (S) [Mass/Vol] 3.3 g/dL Normal [facility] Comment on above: Performed By: #### L IPID, CMP #### [facility] [address] [address] [address] Mitesh Anthony Glucose [Mass/Vol] 97 mg/dL Normal 74-106 [facility] Comment on above: Performed By: #### L IPID, CMP #### [facility] [address] [address] [address] Mitesh Anthony Potassium [Moles/Vol] 4.0 mmol/L Normal 3.5-5.1 [facility] Comment on above: Performed By: #### L IPID, CMP #### [facility] [address] [place] [address] Dr. Mitesh Anthony Protein [Mass/Vol] 7.6 g/dL Normal 6.4-8.2 [facility] Comment on above: Performed By: #### L IPID, CMP #### [facility] [address] [place] [address] Dr. Mitesh Anthony Sodium [Moles/Vol] 142 mmol/L Normal 136-145 [facility] Comment on above: Performed By: #### L IPID, CMP #### [facility] [address] [place] [address] Dr. Mitesh Anthony Urea nitrogen [Mass/Vol] 22.0 mg/dL Critically high 7.0-18.0 [facility] Comment on above: Performed By: #### L IPID, CMP #### [facility] [address] [place] [address] Dr. Mitesh Anthony Urea nitrogen/Creatinine [Mass ratio] 17.9 mg/mg Normal [facility] Comment on above: Performed By: #### L IPID, CMP #### [facility] [address] [place] [address] Dr. Mitesh Anthony TSHon 02-16-2022 TSH 2.355 uIU/mL Normal 0.358-3.740 [facility] Comment on above: Performed By: #### L IPID, CMP #### [facility] [address] [place] [address] Dr. Mitesh Anthony Comprehensive metabolic 2000 panelon 09-22-2021 Albumin [Mass/Vol] 4.5 g/dL 3.2 - 5.2 g/dL [facility] ALP [Catalytic activity/Vol] 75 U/L 40 - 150 U/L [facility] ALT [Catalytic activity/Vol] 14 U/L 0 - 40 U/L [facility] Anion gap [Moles/Vol] 16 mmol/L 10 - 20 mmol/L [facility] AST [Catalytic activity/Vol] 17 U/L 0 - 45 U/L [facility] Bilirubin [Mass/Vol] 0.3 mg/dL 0.0 - 1.3 mg/dL [facility] Calcium [Mass/Vol] 9.0 mg/dL 8.4 - 10. 2 mg/dL [facility] Chloride [Moles/Vol] 105 mmol/L 98 - 108 mmol/L [facility] Creatinine [Mass/Vol] 1.16 mg/dL High 0.40 - 1.[address] [facility] GFR/1.73 sq M.predicted CKD-EPI (S/P/Bld) [Vol rate/Area] 64 >=60 mL/min/1.[address] [facility] Glucose [Mass/Vol] 129 mg/dL High 65 - 99 mg/dL [facility] HCO3 [Moles/Vol] 26 mmol/L 21 - 32 mmol/L [facility] Interpretation and review of laboratory results Abnormal [facility] Potassium [Moles/Vol] 3.7 mmol/L 3.5 - 5.1 mmol/L [facility] Protein [Mass/Vol] 6.5 g/dL 6.0 - 8.0 g/dL [facility] Sodium [Moles/Vol] 143 mmol/L 135 - 145 mmol/L [facility] Urea nitrogen [Mass/Vol] 20 mg/dL 8 - 25 mg/dL [facility] Urea nitrogen/Creatinine [Mass ratio] 17.2 mg/mg [facility] The eGFR should be u sed for monitoring renal function only and not for medication dosing. [facility] HIV 1/2 Screen ( Generati on)on 09-22-2021 HIV 1+2 Ab+HIV1 p24 Ag IA Ql Negative Negative [facility] This assay screens f or the presence of HIV-1, HIV-2 antibodies and for the presence of HIV-1 antigen. Test performed using [employer] immunoassay system [facility] HbA1c (Bld) [Mass fraction]o n 09-22-2021 Average glucose Estimated from glycated hemoglobin (Bld) [Mass/Vol] 137 mg/dL High 74 - 114 mg/dL [facility] Interpretation and review of laboratory results Abnormal [facility] Normal: 4.2% - 5.6% Increased risk for diabetes: 5.7% - 6.4% Diabetes: >= 6.5% Pediatrics: No established reference range Estimated average glucose: 74-114 mg/dL [facility] Hemoglobin A1con 09-22-2021 HbA1c (Bld) [Mass fraction] 6.4 % High 4.2 - 5.6 % [facility] Hepatitis C Antibodyon 09-22 HCV Ab Ql (S) Negative Negative [facility] Test performed using [employer] immunoassay system [facility] Lipid 1996 panelon Cholesterol [Mass/Vol] 195 mg/dL 100 - 199 mg/dL [facility] Cholesterol in HDL [Mass/Vol] 69 mg/dL 40 - [address] [facility] Cholesterol in LDL [Mass/Vol] 114 mg/dL 10 - 130 mg/dL [facility] Comment on above: National Cholesterol Education Program Guidelines: LDL Cholesterol Optimal: <100 mg/dL Near Optimal/above Optimal: 100-129 mg/dL Borderline High: 130-159 mg/dL High: 160-189 mg/dL Very High: greater than or equal to 190 mg/dL Cholesterol non HDL [Mass/Vol] 126 mg/dL [facility] Comment on above: National Cholesterol Education Program Guidelines: NON HDL Cholesterol Desirable: <130 mg/dL Borderline High: 130-159 mg/dL High: 160-189 mg/dL Very High: > or = 190 mg/dL Cholesterol.total/C holesterol in HDL [Mass ratio] 2.8 {ratio} ratio [facility] Comment on above: Female Cholesterol/H DL Ratio: Average risk: 4.4 1/2 average risk: 3.3 2 x average risk: 7.1 Triglyceride [Mass/Vol] 62 mg/dL 30 - 150 mg/dL [facility] No Panel Informationon 09-22 Interpretation and review of laboratory results Normal [facility] TSH DL <= 0.005 mIU/L Qnon 0 09-22-2021 Interpretation and review of laboratory results Normal [facility] TSH Qn 2.57 m[IU]/L [facility] Vital Signs Date Time Vital Sign Value Performing Clinician Facility 02-13-2023 15:20-0400 Body height 144.78 cm Corazon Krishna Other [facility] Other 02-13-2023 15:20-0400 Body mass index (BMI) [Ratio] 16.27 kg/m2 Enocrich Mazas Other [facility] Other 02-13-2023 15:20-0400 Body temperature 98.4 [degF] Corazon Mazas Other [facility] Other 02-13-2023 15:20-0400 Body weight 34.11 kg Corazon Mazas Other [facility] Other 02-13-2023 15:20-0400 Diastolic blood pressure 101 mm[Hg] Corazon Mazas Other [facility] Other 02-13-2023 15:20-0400 Respiratory rate 16 /min Corazon Mazas Other [facility] Other 02-13-2023 15:20-0400 SaO2% (BldA) [Mass fraction] 99 % Corazon Mazas Other [facility] Other 02-13-2023 15:20-0400 Systolic blood pressure 147 mm[Hg] Corazon Mazas Other [facility] Other 08-02-2022 15:14-0500 Body height 132.1 cm Kaden Golden MD Work Phone: [facility] 08-02-2022 15:14-0500 Body temperature 97.5 [degF] Kaden Golden MD Work Phone: [facility] 08-02-2022 15:14-0500 Body weight 32.2 kg Kaden Golden MD Work Phone: [facility] 08-02-2022 15:14-0500 Diastolic blood pressure 85 mm[Hg] Kaden Golden MD Work Phone: [facility] 08-02-2022 15:14-0500 Heart rate 74 /min Kaden Golden MD Work Phone: [facility] 08-02-2022 15:14-0500 Respiratory rate 16 /min Kaden Golden MD Work Phone: [facility] 08-02-2022 15:14-0500 SaO2% (BldA) [Mass fraction] 93 % Kaden Golden MD Work Phone: [facility] 08-02-2022 15:14-0500 Systolic blood pressure 136 mm[Hg] Kaden Golden MD Work Phone: [facility] 06-20-2022 14:28-0500 Blood Pressure Location Christopher [facility] 06-20-2022 14:28-0500 Diastolic blood pressure 76 mm[Hg] Christopher TEODORO [facility] 06-20-2022 14:28-0500 Heart rate 70 /min Christopher LANDERSL [facility] 06-20-2022 14:28-0500 Respiratory rate 16 /min Christopher LANDERSSaturnino [facility] 06-20-2022 14:28-0500 Systolic blood pressure 116 mm[Hg] Christopher MEADOWS [facility] [place] 09-22-2021 11:52-0400 Diastolic blood pressure 108 mm[Hg] Radha Sierra MD Work Phone: [facility] 09-22-2021 11:52-0400 Systolic blood pressure 162 mm[Hg] Radha Sierra MD Work Phone: [facility] 09-22-2021 10:58-0400 Body height 132.1 cm Radha Sierra MD Work Phone: [facility] 09-22-2021 10:58-0400 Body mass index (BMI) [Ratio] 16.02 kg/m2 Radha Sierra MD Work Phone: [facility] 09-22-2021 10:58-0400 Body temperature 98.49 [degF] Radha Sierra MD Work Phone: [facility] 09-22-2021 10:58-0400 Body weight 27.94 kg Radha Sierra MD Work Phone: [facility] 09-22-2021 10:58-0400 Heart rate 132 /min Radha Sierra MD Work Phone: [facility] 09-22-2021 10:58-0400 Respiratory rate 16 /min Radha Sirera MD Work Phone: [facility] 09-22-2021 10:58-0400 SaO2% (BldA) [Mass fraction] 99 % Radha Sierra MD Work Phone: [facility] 04-04-2019 09:17-0500 BP Diastolic 89 mm[Hg] [facility] 04-04-2019 09:17-0500 BP Systolic 155 mm[Hg] [facility] 04-04-2019 09:07-0500 BMI (Body Mass Index) 16.12 kg/m2 [facility] 04-04-2019 09:07-0500 Body Temperature 97.59 [degF] [facility] 04-04-2019 09:07-0500 Body weight 28.67 kg [facility] 04-04-2019 09:07-0500 Height 133.4 cm [facility] 04-04-2019 09:07-0500 Pulse (Heart Rate) 95 /min [facility] 04-04-2019 09:07-0500 Pulse Oximetry 98 % [facility] 09-17-2018 09:02-0400 BMI (Body Mass Index) 17.09 kg/m2 Nahum Chandler [facility] 09-17-2018 09:02-0400 Body Temperature 97.81 [degF] Nahum Srinivasan [facility] 09-17-2018 09:02-0400 BP Diastolic 93 mm[Hg] Nahum Srinivasan [facility] 09-17-2018 09:02-0400 BP Systolic 146 mm[Hg] Nahum Srinivasan [facility] 09-17-2018 09:02-0400 Height 133.4 cm Nahum Srinivasan [facility] 09-17-2018 09:02-0400 Pulse (Heart Rate) 109 /min Nahum Srinivasan [facility] 09-17-2018 09:02-0400 Pulse Oximetry 98 % Nahum Srinivasan [facility] 09-17-2018 09:02-0400 Weight 30.39 kg Nahum Srinivasan [facility] 09-26-2017 08:19-0400 BMI (Body Mass Index) 16.94 kg/m2 Nini [facility] 09-26-2017 08:19-0400 Height 133.4 cm Nini [facility] 09-26-2017 08:19-0400 Weight 30.12 kg [facility] 08-28-2017 11:10-0400 BP Diastolic 100 mm[Hg] [facility] 08-28-2017 11:10-0400 BP Systolic 130 mm[Hg] [facility] 08-28-2017 09:59-0400 BMI (Body Mass Index) 16.33 kg/m2 [facility] 08-28-2017 09:59-0400 Height 133.4 cm [facility] 08-28-2017 09:59-0400 Weight 29.03 kg [facility] 08-14-2017 10:39-0400 BMI (Body Mass Index) 16.53 kg/m2 [facility] 08-14-2017 10:39-0400 Height 133.4 cm [facility] 08-14-2017 10:39-0400 Weight 29.39 kg [facility] 07-31-2017 10:19-0500 BP Diastolic 98 mm[Hg] Nini [facility] 07-31-2017 10:19-0500 BP Systolic 150 mm[Hg] [facility] 07-31-2017 10:19-0500 Pulse (Heart Rate) 107 /min Nini [facility] 07-31-2017 09:04-0500 BMI (Body Mass Index) 15.82 kg/m2 [facility] 07-31-2017 09:04-0500 Body Temperature 98.8 [degF] Nini Pelletier [facility] 07-31-2017 09:04-0500 Height 133.4 cm Nini Pelletier [facility] 07-31-2017 09:04-0500 Pulse Oximetry 94 % Nini Pelletier [facility] 07-31-2017 09:04-0500 Weight 28.12 kg Nini Pellet[address] [facility] Encounters Encounter Date Encounter Type Care Provider Facility Start: 03-01-2023 End: 03-01-2023 ambulatory Corazon Dariansahara Other [facility] Other Start: 03-01-2023 Telephone encounter Corazon Mazas [facility] Start: 02-13-2023 End: 02-13-2023 ambulatory Corazon Krishna Other [facility] Other Start: 02-13-2023 Office outpatient ne w [address] [facility] Start: 08-17-2022 End: 08-18-2022 ambulatory LEONARDO SHAMMO Facility: Start: 08-02-2022 End: 08-02-2022 ambulatory KADEN GOLDEN Facility:[facility] Start: 08-02-2022 End: 08-02-2022 ambulatory Kaden Golden MD Work Phone: Hematology/Oncology Comment on above: 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); Encounter for screening mammogram for malignant neoplasm of breast Start: 08-02-2022 End: 08-02-2022 Patient encounter procedure Kaden Golden MD Work Phone: [facility] Start: 07-21-2022 End: 07-22-2022 ambulatory LEONARDO SHAMMO Facility: [facility] Start: 07-21-2022 End: 07-21-2022 Patient encounter procedure Christopher MEADOWS [facility] Start: 07-16-2022 Refill Radha Sierra MD Work Phone: [facility] Comment on above: HTN Start: 07-12-2022 End: 07-13-2022 ambulatory LEONARDO SHAMMO Facility:[id number] Start: 07-05-2022 Encounter for preprocedural cardiovascular examination DR CHRISTOPHER MEADOWS . [facility] Start: 07-05-2022 Encounter for preprocedural laboratory examination DR CHRISTOPHER MEADOWS . [facility] Start: 07-04-2022 End: 07-05-[address] CHRISTOPHER MEADOWS . Facility:[facility] Start: 07-04-2022 End: 07-05-2022 Encounter for preprocedural laboratory examination DR CHRISTOPHER MEADOWS . Facility: Start: 06-20-2022 End: 06-21-2022 ambulatory LEONARDO SHAMMO Facility:[facility] Start: 06-20-2022 End: 06-20-2022 Patient encounter procedure Christopher MEADOWS General [facility] Start: 06-05-2022 End: 06-05-2022 ambulatory LEONARDO SHAMMO Facility: Start: 05-18-2022 End: 05-19-2022 ambulatory LEONARDO SHAMMO Facility: Start: 05-16-2022 End: 05-17-2022 ambulatory LEONARDO SHAMMO Facility: Start: 04-24-2022 End: 04-25-[address] JANIE TOSCANO . Facility: Start: 04-12-2022 End: 04-13-2022 ambulatory LEONARDO SHAMMO Facility:[id number] Start: 04-08-2022 End: 04-09-[address] CHRISTOPHER MEADOWS . Facility:[facility] Start: 03-08-2022 End: 03-09-2022 ambulatory LEONARDO SHAMMO Facility:[facility] Start: 03-03-2022 Refill Radha Sierra MD Work Phone: [facility] Comment on above: Acquired hypothyroid ism Start: 03-01-2022 End: 03-01-[address] JANIE TOSCANO . Facility:[facility] Start: 03-01-2022 ambulatory LEONARDO SHAMMO Facility:[facility] Start: 02-17-2022 ambulatory LEONARDOJOSE R BLACKBURN Facility:[facility] Start: 02-16-2022 End: 02-17-[address] DOCTOR WHITMAN Facility:[facility] Start: 09-22-2021 End: 09-26-2021 ambulatory RADHA SIERRA [facility] Start: 09-22-2021 End: 09-22-2021 Office outpatient visit 25 minutes Radha Sierra MD Work Phone: [facility] Comment on above: HTN (Primary Dx); Acquired hypothyroidism; Hyperlipidemia, unspecified hyperlipidemia type; Colon cancer screening; Encounter for screening for malignant neoplasm of breast, unspecified screening modality; Healthcare maintenance; Sinus tachycardia, chronic; Elevated serum creatinine; Prediabetes; Hypertension, benign Start: 04-30-2020 End: 04-30-2020 Patient encounter procedure [facility] Start: 12-25-2019 Patient encounter procedure [facility] Start: 10-01-2019 End: 10-01-2019 Patient encounter procedure [facility] Start: 09-25-2019 End: 09-25-2019 Patient encounter procedure [facility] Start: 06-11-2019 Patient encounter procedure [facility] Start: 04-04-2019 End: 04-04-2019 Patient encounter procedure Suraj Addison Work Phone: [facility] Comment on above: Well adult exam (Beatriz joceline Dx); HTN; Acquired hypothyroidism; Hyperlipidemia, unspecified hyperlipidemia type; Unexplained weight loss; Screening for malignant neoplasm of breast; Hearing loss, unspecified hearing loss type, unspecified laterality; Family history of diabetes mellitus Start: 09-17-2018 End: 09-17-2018 Office outpatient visit 15 minutes Nahum Srinivasan Work Phone: [facility] Comment on above: Bilateral hearing lo ss, unspecified hearing loss type (Primary Dx); Intellectual disability (CORBIN Polo, ); Short stature Start: 09-26-2017 End: 09-26-2017 Office/outpatient visit, est, level 4 Nini Pelletier Work Phone: [facility] Start: 08-28-2017 Office/outpatient vi sit, est, level 3 Nini Pelletier Work Phone: [facility] Start: 08-14-2017 Office/outpatient vi sit, est, level 3 Nini Pelletier Work Phone: [facility] Start: 07-31-2017 Office/outpatient vi sit, est, level 3 Nini Pelletier Work Phone: [facility] Start: 06-15-2011 End: 04-04-2019 Patient encounter status Radha Sierra MD Work Phone: [facility] Work Phone: Procedures Date Procedure Procedure Detail Performing Clinician Start: 07-12-2022 Lumpectomy of left breast Christopher MEADOWS Start: 09-22-2021 Adult depression scr eening assessment Radha Sierra MD Work Phone: Start: 04-04-2019 Adult depression scr eening assessment Suraj Addison Start: 06-07-2018 Adult depression scr eening assessment Nahum Srinivasan Colonoscopy Christopher MEADOWS Core needle biopsy o f breast Christopher LANDERSSaturnino Plan of Treatment Date Care Activity Detail Author Start: 08-03-2024 Tetanus vaccination [facility] Start: 09-22-2022 Depression screening using PHQ-9 (Patient Health Questionnaire 9) score Depression Screening (PHQ-2/9) [facility] Start: 05-28-2022 [facility] Start: 01-26-2022 Influenza vaccination [facility] Start: 10-07-2021 End: 10-07-2021 Patient encounter procedure 10/07/2021 Office Visit Primary Care Radha Sierra MD [address] [place] [id number] [facility] Start: 03-04-2021 COVID-19 Vaccine (3 - Booster for Pfizer series) COVID-19 Vaccine (3 - Booster for Pfizer series) [facility] Start: 11-27-2020 COVID-19 Vaccine (3 - Booster for Pfizer series) COVID-19 Vaccine (3 - Booster for Pfizer series) [facility] Start: 04-04-2020 History and physical examination, annual for health maintenance Wellness Visit [facility] Start: 06-07-2019 Depression screening using PHQ-9 (Patient Health Questionnaire 9) score DEPRESSION SCREENING (PHQ9) [facility] Start: 06-07-2019 Screening for substa nce abuse SUBSTANCE ABUSE SCREENING (AUDIT-C) [facility] Start: 05-05-2019 End: 05-05-2019 Office Visit 05/05/2019 Office Visit Primary Care Nahum Srinivasan CNP [address] [place] [address] [phone] [facility] Start: 10-01-2018 End: 10-01-2018 Office Visit 10/01/2018 Office Visit Primary Care Nahum Srinivasan CNP [address] [place] [address] [phone] [facility] Start: 03-29-2018 End: 03-29-2018 Ambulatory 03/29/2018 Office Visit Primary Care Nini Pelletier CNP [address] [place] [address] [phone] [facility] Start: 01-26-2018 Influenza vaccinatio n given SEQUENTIAL INFLUENZA VACCINE (#1) [facility] Start: 09-25-2017 Ambulatory 09/25/2017 Off ice Visit Primary Care Nini Pelletier CNP [address] [place] [address] [phone] [facility] Start: 2017 COLOGUARD (FIT-DNA) COLOGUARD (FIT-D NA) [facility] Start: 2017 Colonoscopy COLONOSCOPY [facility] Start: 2017 COLORECTAL CANCER SCREENING COLORECTAL CANCER SCREENING [facility] Start: [address] COLONOGRAPHY [facility] Start: 2017 DIABETES SCREEN DIABETES SCREEN [facility] Start: 2017 FECAL OCCULT BLOOD FECAL OCCULT BLOO D [facility] Start: 2017 LIPID SCREEN LIPID SCREEN [facility] Start: 2017 SIGMOIDOSCOPY SIGMOIDOSCOPY [facility] Start: 08-28-2017 Ambulatory 08/28/2017 Off ice Visit Primary Care Nini Pelletier CNP [address] [place] [address] [phone] [facility] Start: 08-07-2017 Ambulatory 08/07/2017 Off ice Visit Primary Care Nini Pelletier CNP [address] [place] [address] [phone] [facility] Start: 2012 Mammography MAMMOGRAM [facility] Start: 2012 Screening for malign ant neoplasm of breast Mammogram [facility] Start: 2002 HPV TESTING HPV TESTING [facility] Start: 1993 PAP TESTING PAP TESTING [facility] Start: 09-24-1991 Urine microalbumin profile DTAP,TDAP ,TD (1 - Tdap) [facility] Start: 1990 Hepatitis C screening [facility] Start: 1990 HEPATITIS C SCREENING HEPATITIS C [facility] Start: 1990 HIV SCREENING HIV SCREENING [facility] Start: 09-24-1987 HIV screening HIV Screening [facility] Start: 09-24-1975 History and physical examination, annual for health maintenance Wellness Visit [facility] Start: 1972 HEPATITIS B (1 of 3 - 3-dose series) HEPATITIS B (1 of 3 - 3-dose series) [facility] Start: 1972 Protein mass conc Mammogram [facility] Start: 1972 Screening for malign ant neoplasm of cervix PAP SMEAR [facility] Start: 1972 Screening for malign ant neoplasm of colon [facility] Start: 1972 Screening mammography Mammogram [facility]olog[facility]ard [facility]olog[facility] Colon cancer screening Ordered: 09/22/[address] [facility] Comment on above: Ordered: 09/22/2021 End: 04-04-2020 Complete blood count with white cell differential, manual CBC and Differential Lab Routine Unexplained weight loss 1 Occurrences starting 04/04/2019 until 04/04/[address] [facility] Comment on above: 1 Occurrences starti ng 04/04/2019 until 04/04/2020 End: 04-04-2020 Comprehensive metabolic 2000 panel Comprehensive Metabolic Panel Lab Routine HTN 1 Occurrences starting 04/04/2019 until 04/04/[address] [facility] Comment on above: 1 Occurrences starti ng 04/04/2019 until 04/04/2020 End: 09-22-2022 Comprehensive metabolic 2000 panel - Serum or Plasma Comprehensive Metabolic Panel Lab Routine 1 Occurrences starting 09/22/2021 until 09/22/[address] [facility] Comment on above: 1 Occurrences starti ng 09/22/2021 until 09/22/2022 Comprehensive metabo lic 2000 panel - Serum or Plasma Comprehensive Metabolic Panel Lab Routine 09/22/2021 12:[address] [facility] End: 07-31-2018 Comprehensive metabolic panel [AGGREGATE] Comprehensive Metabolic Panel Routine HTN 1 Occurrences starting 07/31/2017 until 07/31/[address] [facility] Comprehensive metabo lic panel [AGGREGATE] Comprehensive Metabolic Panel Routine HTN 07/31/2017 10:[address] [facility] End: 04-04-2020 HbA1c (Bld) [Mass fraction] Hemoglobin A1c Lab Routine Family history of diabetes mellitus 1 Occurrences starting 04/04/2019 until 04/04/[address] [facility] Comment on above: 1 Occurrences starti ng 04/04/2019 until 04/04/2020 End: 09-22-2022 Hemoglobin A1c/Hemoglobin.total in Blood Hemoglobin A1c Lab Routine 1 Occurrences starting 09/22/2021 until 09/22/[address] [facility] Comment on above: 1 Occurrences starti ng 09/22/2021 until 09/22/2022 Hemoglobin A1c/Hemoglobin.total in Blood Hemoglobin A1c Lab Routine 09/22/2021 12:[address] [facility] End: 09-22-2022 Hepatitis C antibody measurement Hepatitis C Antibody Lab Routine Healthcare maintenance 1 Occurrences starting 09/22/2021 until 09/22/[address] [facility] Comment on above: 1 Occurrences starti ng 09/22/2021 until 09/22/2022 Hepatitis C antibody measurement Hepatitis C Antibody Lab Routine Healthcare maintenance 09/22/2021 12:[address] [facility] End: 09-22-2022 Human immunodeficiency virus antibody test HIV 1/2 Screen (4th Generation) Lab Routine Healthcare maintenance 1 Occurrences starting 09/22/2021 until 09/22/[address] [facility] Comment on above: 1 Occurrences starti ng 09/22/2021 until 09/22/2022 Human immunodeficien cy virus antibody test HIV 1/2 Screen (4th Generation) Lab Routine Healthcare maintenance 09/22/2021 12:[address] [facility] End: 04-04-2020 Lipid 1996 panel Lipid Panel Lab Routine HTN 1 Occurrences starting 04/04/2019 until 04/04/[address] [facility] Comment on above: 1 Occurrences starti ng 04/04/2019 until 04/04/2020 End: 09-22-2022 Lipid 1996 panel - Serum or Plasma Lipid Panel Lab Routine Hyperlipidemia, unspecified hyperlipidemia type 1 Occurrences starting 09/22/2021 until 09/22/[address] [facility] Comment on above: 1 Occurrences starti ng 09/22/2021 until 09/22/2022 Lipid 1996 panel - S luz or Plasma Lipid Panel Lab Routine Hyperlipidemia, unspecified hyperlipidemia type 09/22/2021 12:[address] [facility] End: 07-31-2018 Lipid panel Lipid Panel Routine Hyperlipidemia, Unspecified Hyperlipidemia Type 1 Occurrences starting 07/31/2017 until 07/31/[address] [facility] Lipid panel Lipid Panel Rout ine Hyperlipidemia, unspecified hyperlipidemia type 07/31/2017 10:[address] [facility] End: 09-01-2023 MAURICIO SCREENING [facility] [place] Radiology Routine Atypical ductal hyperplasia of left breast Encounter for screening mammogram for malignant neoplasm of breast 1 Occurrences starting 08/02/2022 until 09/01/[address] [facility] Work Phone: Comment on above: 1 Occurrences starti ng 08/02/2022 until 09/01/2023 End: 06-04-2020 MG Breast - bilateral screening Mammography Screening Bilateral Imaging Routine Screening for malignant neoplasm of breast 1 Occurrences starting 04/04/2019 until 06/04/[address] [facility] Comment on above: 1 Occurrences starti ng 04/04/2019 until 06/04/2020 End: 11-22-2022 MG Breast - bilateral Screening Mammography Screening [place] Bilateral Imaging Routine Encounter for screening for malignant neoplasm of breast, unspecified screening modality 1 Occurrences starting 09/22/2021 until 11/22/[address] [facility] Comment on above: 1 Occurrences starti ng 09/22/2021 until 11/22/2022 End: 04-04-2020 Microalbumin measurement, urine, quantitative Microalbumin/Creatinine Ratio, UR Random Lab Routine HTN 1 Occurrences starting 04/04/2019 until 04/04/[address] [facility] Comment on above: 1 Occurrences starti ng 04/04/2019 until 04/04/2020 Microalbumin, Urine, Random Microalbumin, Urine, Random Routine HTN 07/31/2017 10:[address] [facility] OUTSIDE SURG PATH SL FABIO REVIEW OUTSIDE SURG PATH SLIDE REVIEW Lab Routine Ordered: 08/02/[address] [facility] Work Phone: Comment on above: Ordered: 08/02/2022 End: 09-22-2022 Thyrotropin [Units/volume] in Serum or Plasma TSH with Reflex Free T4 Lab Routine Acquired hypothyroidism 1 Occurrences starting 09/22/2021 until 09/22/[address] [facility] Work Phone: Comment on above: 1 Occurrences starti ng 09/22/2021 until 09/22/2022 Thyrotropin [Units/v olume] in Serum or Plasma TSH with Reflex Free T4 Lab Routine Acquired hypothyroidism 09/22/2021 12:[address] [facility] End: 04-04-2020 TSH Qn TSH Lab Routine Acquired hypothyroidism 1 Occurrences starting 04/04/2019 until 04/04/[address] [facility] Comment on above: 1 Occurrences starti ng 04/04/2019 until 04/04/2020 End: 07-31-2018 TSH with Reflex Free T4 TSH with Reflex Free T4 Routine Acquired hypothyroidism 1 Occurrences starting 07/31/2017 until 07/31/[address] [facility] TSH with Reflex Free T4 TSH with Reflex Free T4 Routine Acquired hypothyroidism 07/31/2017 10:43 AM [facility] Immunizations Immunization Date Immunization Notes Care Provider Fa [facility] 05-02-2022 influenza virus vaccine, unspecified formulation Christopher MEADOWS [facility] [place] 05-02-2022 Seasonal, trivalent, recombinant, injectable influenza vaccine, preservative free Radha Sierra MD Work Phone: [facility] 10-02-2020 SARS-CoV-2 (COVID-19 ) mRNA BNT-162b2 evangelina MEADOWS [facility] [place] Comment on above: Result Comment: 2022: TPV40 09-11-2020 SARS-CoV-2 (COVID-19 ) mRNA BNT-162b2 evangelina MEADOWS [facility] [place] Comment on above: Result Comment: 2022: TPV40 08-03-2014 tetanus toxoid, redu maria teresa diphtheria toxoid, and acellular pertussis vaccine, adsorbed; Translations: [TDAP] [facility] 08-03-2014 tuberculin skin test ; purified protein derivative solution, intradermal; Translations: [PPD TEST] [facility] Payers Date Payer Category Payer Medicaid [id number] 2019 Medicare [id number] 2014 Medicaid [id number] 1993 Medicare MEDICARE MEDICAR E PART A & B xxxxxxxxxxx 1993-Present [place] xxxxxxxxxxx [id number] 1993 Medicare [id number]. [id number] 1972 Unknown [id number] 2.16.840.1.533135.3.579.2.903 1972 Unknown [id number] 2.16.840.1.747560.3.579.2.90 1972 Unknown [id number] 2.16.840.1.689046.3.579.2.903 1972 Unknown [id number] 2.16840.1.236486.3.579.2.903 1972 Unknown [id number] 2.16.840.1.659867.3.579.2.903 1972 Unknown [id number] 2.16.840.1.592098.3.579.2.900 1972 Unknown [id number] 2.16.840.1.637724.3.579.2.727 1972 Unknown [id number] 2.16.840.1.427843.3.579.2.727 1972 Unknown [id number] 2.16.840.1.475747.3.579.2.727 1972 Unknown [id number] 2.16.840.1.475956.3.579.2.727 1972 Unknown [id number] 2.16.840.1.885380.3.579.2.727 1972 Unknown [id number] 2.16.840.1.301775.3.579.2.727 1972 Unknown [id number] 2.16.840.1.972400.3.579.2.593 1972 Unknown [id number] 2.16.840.1.045888.3.579.2.593 1972 Unknown [id number] 2.16.840.1.658617.3.579.2.593 1972 Unknown [id number] 2.16.840.1.611734.3.579.2.593 1972 Unknown [id number] 2.16.840.1.215317.3.579.2.593 1972 Unknown [id number] 2.16.840.1.603331.3.579.2.593 1972 Unknown [id number] 2.16.840.1.782368.3.579.2.593 1972 Unknown [id number] 2.16.840.1.567030.3.579.2.593 1972 Unknown [id number] 2.16.840.1.260947.3.579.2.593 1972 Unknown [id number] 2.16.840.1.270716.3.579.2.593 1972 Unknown [id number] 2.16.840.1.085852.3.579.2.593 1972 Unknown [id number] 2.16.840.1.129121.3.579.2.593 1957 Medicaid [id number] 1957 Medicare [id number] Medicare [id number] Medicare xxxxxxxxxx [id number] Social History Date Type Detail Facility Start: 09-26-2017 End: 04-04-2019 Tobacco smoking status TXIS Never smoker [facility] Start: 1970 Sex Assigned At Not on file [facility] Start: 04-04-2019 End: 09-22-2021 Alcohol intake Current non-drinker of alcohol (finding) [facility] Start: 04-04-2019 End: 04-30-2020 History SDOH Food Worry [address] [facility] Start: 04-04-2019 End: 08-02-2022 Tobacco use and exposure Smokeless tobacco non-user [facility] Start: 09-11-2021 End: 09-21-2021 Exposure to SARS-CoV-2 (event) Not sure [facility] Tobacco smoking status Never [facility] Sex Assigned At Female [facility] History of tobacco use Passive smoker [facility] Start: 08-02-2022 Alcohol intake Ex-drinker (finding) [facility] Functional Status Date Assessment Result Facility 06-20-2022 Functional Status N/A [facility] Clinical Notes 09-22-2021 to 02-13-2023 Note Date & Type Note Facility 02-13-2023 Evaluation note Encounter Date Diagnosis Assessment Notes Jan, Chronic kidney disease, stage 3b (ICD-10 - N18.32) Chronic kidney disease is likely from hypertensive nephropathy. I do not have labs available to me. I do not know the baseline creatinine. It is unknown if the patient has hematuria and or hematuria. I will check renal function panel prior to next visit along with UA with protein to creatinine ratio. I will check renal ultrasound. Blood pressure and volume status are well controlled. Advised the patient to avoid NSAIDs completely. I will follow-up with the patient in 3 months Jan, Hypertensive nephropathy (ICD-10 - I12.9) Blood pressure seems well controlled. Volume status is also well controlled I will continue same blood pressure medication. Advised the patient to follow a low salt diet and to monitor blood pressure at home Jan, Vitamin D deficiency (ICD-10 - E55.9) I will check 25-hydroxy vitamin D along with PTH, calcium and phosphorus next visit Jan, Hyperlipidemia, unspecified hyperlipidemia type (ICD-10 - E78.5) Follows with PCP for hyperlipidemia management. [employer] Other 03-08-2023 NoteHNO ID: [id number] Author: Kaden Golden MD Service: ? Author Type: Physician Type: Progress Notes Filed: 08/02/2022 4:01 PM Note Text: PATIENT NAME: Lindsey Polo CLINIC NO.: [id number] ATTENDING PHYSICIAN: Kaden Golden MD DATE OF SERVICE: August 02, [address] Christopher Meadows thank you for referring Miss Lindsey Polo for an opinion regarding ADH. CHIEF COMPLAINT: I have a breat mass that was taken HPI: Lindsey Polo is a 51 year old year old female with PMH sig for intellectual disability, lives with her cousin, HTN, pre diabetes, Osteoporosis who had a routine mammogram 04/24/2022 and L breast showed a 5 mm geographic shaped opacity in the posterior upper outer quadrant and 4 mm partially circumscribed mass mild LL quadrant. US 05/18/2022 demonstrated 7x7x3 mm hypoechoic mass at 2o'clock position 3.3 cm FN and biopsy was done 06/05/2022 which demonstrated atypical ductal proliferation bordering DCIS within a fibroadenoma. She subsequently saw Dr. Meadows and [place] breast Lumpectomy 07/12/2022 with atypical ductal proliferation bordering DCIS She denies any family history of breast and or ovarian cancer and also denies any hormone use and or previous breast biopsy She lives with her cousin Current Outpatient Medications Medication Sig alendronate (FOSAMAX) 35 mg tablet TAKE 1 TAB BY MOUTH ONCE A WEEK 30 MINS BEFORE FIRST FOOD/BEVERAGE/MEDS OF THE DAY WITH PLAIN WATER amLODIPine (NORVASC) 10 mg tablet Take 10 mg by mouth once daily. lisinopril-hydroCHLOROthiazide (PRINZIDE, ZESTORETIC) 20-25 mg per tablet Take 1 tablet by mouth once daily. KLOR-CON M20 20 mEq tablet TAKE 1 TABLET BY MOUTH EVERY DAY WITH FOOD FOR 90 DAYS No current facility-administered medications for this visit. ALLERGIES No Known Allergies PAST MEDICAL HISTORY Diagnosis Date Ductal carcinoma in situ (DCIS) of left breast HTN (hypertension) Hyperlipemia Intellectual disability Sinus tachycardia History reviewed. No pertinent surgical history. History reviewed. No pertinent family history. Social History Tobacco Use Smoking status: Never Passive exposure: Past Smokeless tobacco: Never Substance Use Topics Alcohol use: Not Currently Drug use: Never REVIEW OF SYSTEMS GENERAL: No weight loss, malaise or fevers. No night sweats. HEENT: Negative for headaches, No changes in hearing or vision, no nose bleeds or other nasal problems. RESPIRATORY: Negative for cough, wheezing and shortness of breath CARDIOVASCULAR: Negative for chest pain, leg swelling and palpitations GI: Negative for abdominal discomfort, blood in stools or black stools and change in bowel habits : Negative for dysuria, frequency and incontinence MUSCULOSKELETAL: Negative for joint pain or swelling, back pain, and muscle pain. SKIN: Negative for lesions, rash, and itching. HEMATOLOGY/LYMPHOLOGY Negative for prolonged bleeding, bruising easily, and swollen nodes. NEURO: Negative for numbness or tingling of hands/feet. No weakness. PHYSICAL EXAMINATION: BP 136/85 Pulse 74 Temp 36.4 ?C (97.5 ?F) (Temporal) Resp 16 Ht 132.1 cm (4' 4.01 ) Wt 32.2 kg (71 lb) SpO2 93% BMI 18.46 kg/m? Wt 32.2 kg (71 lb) BMI 18.46 kg/m2 Last 3 Encounter Wt Readings: Date: Wt: 08/02/2022 32.2 kg (71 lb) General appearance:ECOG PERFORMANCE STATUS: 1- Restricted in physically strenuous activity. Carries out light duty. Patient in NAD. Skin: Skin color, texture, turgor normal. No rashes or lesions. Eyes: Anicteric sclera. Pupils are equally round and reactive to light. Extraocular movements are intact. Breast: No palpable breast masses. No nipple change or discharge. Lymph Nodes: No cervical, supraclavicular, axillary or inguinal adenopathy. Oropharynx: Lips, mucosa, and tongue normal. Back: No pain to percussion. Negative SLR test Lungs clear to auscultation, No wheezing or rhonchi Heart: RRR without murmur, gallop, or rubs. Abdomen soft, non-tender. No masses, organomegaly Extremities: No deformities. No edema Neuro: Gait and speech normal. Reflexes normal and symmetric. Muscular strength intact. Sensation grossly intact. Rectal: Deferred : Deferred LABS: No results found for: GLUC, K, NA, CHLOR, CO2, CREAT, BUN, ANION, CA, TPROT, ALB, TBILI, ALKPHOS, AST, ALT No results found for: WBC, RBC, HB, HCT, MCV, MCH, MCHC, RDWCV, PLT, MPV, MPV, NEUT, ABSNEUT, LYMPHP, ABSLYMPH, MONOP, ABSMONO, EOSINP, ABSEOSIN, BASOP, ABSBASO PATH: L [place] Lumpectomy 06/2022: IMAGING: Mammogram and US 04/2022: ASSESSMENT AND PLAN: Lindsey Polo is a 51 year old year old female H with intellectual disability, HTN, Osteoporosis, hypothyroidism with atypical ductal proliferation bordering DCIS post lumpectomy Discussed the findings in detail with the patinet and her cousin. Will review path at F Will present at Breast TB Patient is not interested in pharmacologic risk reduc (more content not included)...[facility]03-08-2023 History of Present illness Narrative* Kaden Golden MD - 08/02/2022 3:28 PM EST Images from the original note were not included. PATIENT NAME: Lindsey Polo CLINIC NO.: [id number] ATTENDING PHYSICIAN: Kaden Golden MD DATE OF SERVICE: August 02, [address] Christopher Meadows thank you for referring Miss Lindsey Polo for an opinion regarding ADH. CHIEF COMPLAINT: I have a breat mass that was taken HPI: Lindsey Polo is a 51 year old year old female with PMH sig for intellectual disability,lives with her cousin, HTN, pre diabetes, Osteoporosis who had a routine mammogram 04/24/2022 and Lbreast showed a 5 mm geographic shaped opacity in the posterior upper outer quadrant and 4 mm partially circumscribed mass mild LL quadrant. US 05/18/2022 demonstrated 7x7x3 mm hypoechoic mass at 2o'clock position 3.3 cm FN and biopsy was done 06/05/2022 which demonstrated atypical ductal proliferation bordering DCIS within a fibroadenoma. She subsequently saw Dr. Melendrez breast Lumpectomy 07/12/2022 with atypical ductal proliferation bordering DCIS She denies any family history of breast and or ovarian cancer and also denies any hormone use and or previous breast biopsy She lives with her cousin Current Outpatient Medications Medication Sig alendronate (FOSAMAX) 35 mg tablet TAKE 1 TAB BY MOUTH ONCE A WEEK 30 MINS BEFORE FIRST FOOD/BEVERAGE/MEDS OF THE DAY WITH PLAIN WATER amLODIPine (NORVASC) 10 mg tablet Take 10 mg by mouth once daily. lisinopril-hydroCHLOROthiazide (PRINZIDE, ZESTORETIC) 20-25 mg per tablet Take 1 tablet by mouth once daily. KLOR-CON M20 20 mEq tablet TAKE 1 TABLET BY MOUTH EVERY DAY WITH FOOD FOR 90 DAYS No current facility-administered medications for this visit. ALLERGIES No Known Allergies PAST MEDICAL HISTORY Diagnosis Date Ductal carcinoma in situ (DCIS) of left breast HTN (hypertension) Hyperlipemia Intellectual disability Sinus tachycardia History reviewed. No pertinent surgical history. History reviewed. No pertinent family history. Social History Tobacco Use Smoking status: Never Passive exposure: Past Smokeless tobacco: Never Substance Use Topics Alcohol use: Not Currently Drug use: Never REVIEW OF SYSTEMS GENERAL: No weight loss, malaise or fevers. No night sweats. HEENT: Negative for headaches, No changes in hearing or vision, no nose bleeds or other nasal problems. RESPIRATORY: Negative for cough, wheezing and shortness of breath CARDIOVASCULAR: Negative for chest pain, leg swelling and palpitations GI: Negative for abdominal discomfort, blood in stools or black stools and change in bowel habits : Negative for dysuria, frequency and incontinence MUSCULOSKELETAL: Negative for joint pain or swelling, back pain, and muscle pain. SKIN: Negative for lesions, rash, and itching. HEMATOLOGY/LYMPHOLOGY Negative for prolonged bleeding, bruising easily, and swollen nodes. NEURO: Negative for numbness or tingling of hands/feet. No weakness. PHYSICAL EXAMINATION: BP 136/85 Pulse 74 Temp 36.4 C (97.5 F) (Temporal) Resp 16 Ht 132.1 cm (4' 4.01 ) Wt 32.2kg (71 lb) SpO2 93% BMI 18.46 kg/m Wt 32.2 kg (71 lb) BMI 18.46 kg/m2 Last 3 Encounter Wt Readings: Date: Wt: 08/02/2022 32.2 kg (71 lb) General appearance:ECOG PERFORMANCE STATUS: 1- Restricted in physically strenuous activity. Carries out light duty. Patient in NAD. Skin: Skin color, texture, turgor normal. No rashes or lesions. Eyes: Anicteric sclera. Pupils are equally round and reactive to light. Extraocular movements are intact. Breast: No palpable breast masses. No nipple change or discharge. Lymph Nodes: No cervical, supraclavicular, axillary or inguinal adenopathy. Oropharynx: Lips, mucosa, and tongue normal. Back: No pain to percussion. Negative SLR test Lungs clear to auscultation, No wheezing or rhonchi Heart: RRR without murmur, gallop, or rubs. Abdomen soft, non-tender. No masses, organomegaly Extremities: No deformities. No edema Neuro: Gait and speech normal. Reflexes normal and symmetric. Muscular strength intact. Sensation grossly intact. Rectal: Deferred : Deferred LABS: No results found for: GLUC, K, NA, CHLOR, CO2, CREAT, BUN, ANION, CA, TPROT, ALB, TBILI, ALKPHOS, AST, ALT No results found for: WBC, RBC, HB, HCT, MCV, MCH, MCHC, RDWCV, PLT, MPV, MPV, NEUT, ABSNEUT, LYMPHP, ABSLYMPH, MONOP, ABSMONO, EOSINP, ABSEOSIN, BASOP, ABSBASO PATH: L [place] Lumpectomy 06/2022: IMAGING: Mammogram and US 04/2022: ASSESSMENT AND PLAN: Lindsey Polo is a 51 year old year old female PMH with intellectual disability, HTN, Osteoporosis, hypothyroidism with atypical ductal proliferation bordering DCIS post lumpectomy Discussed the findings in detail with the margaritonet and her cousin. Will review path at [facility] Will present at Breast TB Patient is not interested in pharmacologic risk reduction strategies and will proceed with standardscreening See back in 1 year and will relay the discussion at the TB with the patient as well Continue Fosamax and Vit D Continue BP meds Dear Dr. Christopher Meadows. thank you for allowing me to participate in Miss Lindsey Polo care,if there are any questions or concerns please do not hesitate to contact me at the number below. Kaden Golden M.D. Hematology/Medical Oncology [facility] [phone] CC: MD Leonardo Richards NP [facility] Telephone encounter Note * Telephone Encounter - Rashad Ashley MA - 07/17/2022 11:35 AM EST Patient needs an appointment [id number] Miscellaneous Notes* Telephone Encounter - Rashad Ashley MA - 07/17/2022 11:35 AM EST Patient needs an appointment documented in this [id number] NoteOPERATIVE NOTE OPERATION DATE: 07/12/2022 PREOPERATIVE DIAGNOSIS: Left breast fibroadenoma as well as typical ductal hyperplasia. 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 PROCEDURE: Needle localized left breast lumpectomy for lump at 3 o'clock position in the left breast. SURGEON: Christopher Meadows M.D. ANESTHESIA: General with laryngeal mask airway. ESTIMATED BLOOD LOSS: Less than 2 mL. INDICATIONS AND CONSENT: Patient is a 51-year-old female who has had an abnormal mammogram and ultrasound. She was found to have a 7 mm irregular lesion. Biopsy was obtained, ultrasound guided core biopsy, which revealed a fibroadenoma as well as an area of atypical ductal hyperplasia bordering on DCIS. Indications, risks, benefits, alternatives of proceeding with needle localized lumpectomy for definitive diagnosis and treatment were explained extensively to the patient, including the risks of bleeding, infection, scarring, pain, anesthetic complications, need for further surgery. All of her questions were answered. Informed consent was obtained. PROCEDURE: Patient brought to the operating room. She had previously undergone needle localization in Radiology. General anesthesia was induced. She was prepped and draped in the usual sterile fashion. Curvilinear incision was made in the left lateral breast, medial to the wire. It was carried down through subcutaneous tissue using sharp dissection as well as electrocautery. The wire was then brought into the field. The area around the wire was then excised using electrocautery. The specimen was marked with a short suture superior and long stitch laterally. It was carried down to the pectoralis fashion posteriorly. It was then sent off to Radiology where the clip was noted to be within the specimen. The wound was irrigated. There was good hemostasis. The subcutaneous tissue was re-approximated with interrupted 3-0 Monocryl suture. The skin was then closed with a running 4-0 subcuticular Monocryl suture and skin glue. Sterile pressure dressing was applied. Sponge and needle counts were correct x2 per nursing personnel. Patient tolerated procedure well, was sent to recovery room in good condition. CC: Patient's family physicianThe [facility] Medical [id number] NoteChief Complaint consultation for abnormal mammogram/biopsy HPI Staff 51 year old female presents on consultation from Dr. Toscano for abnormal mammogram/core biopsy. Biopsy with bordering ductal carcinoma in situ with a fibroadenoma. Denies breast pain, palpable lumps, skin changes or nipple discharge or inversion. No known family history of breast cancer. History of Present Illness 51 yo female with h/o htn, hyperlipidemia, hypothyroidism, intellectual disability, referred for abnormal left breast biopsy; patient underwent routine screening mammography, then US, which revealed 7 mm hypoechoic deep nodule in left upper outer quadrant; she underwent US-guided biopsy that revealed area of atypical ductal proliferation bordering DCIS, within a fibroadenoma; no previous breast biopsies; no h/o hormone therapy; no fmhx of breast or ovarian cancers; no tobacco use. Review of Systems PHQ Score Initial Depression Screen Score: 0 ROS - Provider Constitutional: no fever, no sweats, no weight loss. Eyes: no glasses, no blurred vision, no visual loss. ENMT: no dentures, no hoarseness, no swallowing difficulties, no hearing loss, no ear infection(s),no nose bleeds. Cardiovascular: normal blood pressure, no chest pain, regular heartbeat, no heart murmur. Respiratory: no shortness of breath, no cough, no asthma, no wheezing. Gastrointestinal: no nausea, no vomiting, no diarrhea, no constipation, no blood in stool, no change in bowel habits, no abdominal pain, no hepatitis. Genitourinary: no kidney stones, no urine infection, no dysuria. Musculoskeletal: no pain, no weakness. Skin: no changing moles, no rash, no skin lumps. Neurologic: no seizures, no epilepsy, no headache. Psychiatric: no emotional or psychiatric problem. Heme/Lymph: no bleeding problems, no anemia, no blood clots, no transfusions. Allergy/Immunologic: no swollen lymph nodes/glands, no IV drug abuse. Other: Additional ROS info: Except as noted in the above Review of Systems and in the History of Present Illness, all other systems have been reviewed and are negative or noncontributory. Physical Exam Vitals & Measurements HR: 70(Peripheral) RR: 16 BP: 116/76 HT: 54 in HT: 137 cm WT: 32 kg WT: 70.4 lb BMI: 17.05 HEENT: normal conjunctiva, sclera clear, no scleral icterus, EOM intact, PERRLA. oral mucosa moist without lesions Neck: trachea midline , no mass, symmetric, no thyromegaly or nodules. no adenopathy Respiratory: lungs CTA, respirations non labored. Cardiovascular: regular rate and rhythm, no murmur, , no pedal edema or varicosities. Chest (Breasts): symmetric, no discharge, no palpable breast or axillary lumps, masses or tenderness. no skin or nipple changes n distended, no tenderness, no masses, no palpable hernias, diastasis recti no, no hepatosplenomegaly. normal bs Lymphatic: no cervical adenopathy, no axillary adenopathy, no supraclavicular adenopathy , digits and nails without infection, nodes, cyanosis, clubbing. Skin: no rashes, no lesions, no ulcers, no subcutaneous nodules, induration. Psychiatric/Neuro: oriented to time, place, person, judgement normal, affect appropriate for age, insight intact, no focal deficits. Tests: labs reviewed, x-rays reviewed, review of old records completed, Discussed surgical options, risks, and possible complications with patient. Assessment/Plan 1. Ductal carcinoma in situ (DCIS) of left breast (D05.12: Intraductal carcinoma in situ of left breast) plan needle-localized left breast lumpectomy under anesthesia; informed consent obtained. Ancef 2 gms IV prior to OR SCDs 2. 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 Medications alendronate 35 mg Tab, 35 mg= 1 tab(s), Oral, qWeek amLODIPine 10 mg Tab, 10 mg= 1 tab(s), Oral, Daily hydrochlorothiazide-lisinopril 25 mg-20 mg Tab, 1 tab(s), Oral, Daily levothyroxine 25 mcg (0.025 mg) Tab, 25 mcg= 1 tab(s), Oral, Daily Potassium Chloride (Wcu-Pwvf-Oyn M20) 20 mEq oral tablet, extended release, 20 mEq= 1 tab(s), Oral,Daily Allergies No Known Allergies No Known Medication Allergies Social History Alcohol - Denies Alcohol Use, 03/08/2022 Substance Abuse - Denies Substance Abuse, 03/08/2022 Tobacco Never (less than 100 in lifetime) Tobacco Use:. Never Smokeless Tobacco Use:., 03/08/2022 Family History Family history is negative Immunizations Vaccine Date Status Comments influenza virus vaccine, inactivated 05/02/2022 Recorded SARS-CoV-2 (COVID-19) mRNA BN (more content not included)...[facility] HospitalComment on above:Result Comment: Electronically Signed By: TEODORO MALIK, Christopher Ragland\Date and Time Signed: 06/20/22 14:54 [id number] NoteOPERATIVE NOTE OPERATION DATE: 04/12/2022 PREOPERATIVE DIAGNOSIS: Colorectal screening. POSTOPERATIVE DIAGNOSIS: Normal colon to cecum. PROCEDURE: Colonoscopy to cecum. SURGEON: Christopher Meadows M.D. ANESTHESIA: Monitored anesthesia care. ESTIMATED BLOOD LOSS: Zero. INDICATIONS AND CONSENT: Patient is a 51-year-old female presents for colorectal screening. Indications, risks, benefits, alternatives of proceeding with colonoscopy were explained extensively to the patient, including the risks of bleeding, colon perforation or anesthetic complications. All of her questions were answered. Informed consent was obtained. PROCEDURE: Patient brought to the operating room, placed in the left lateral decubitus position. Monitored anesthesia care was provided. Rectal exam was performed which showed no masses or blood. The pediatric scope was then inserted into the anal canal. Under direct visualization was advanced. With the aid of abdominal compression, it was advanced to the cecum where cecal markings were clearly identified. There was noted to be a good prep. Upon withdrawal of the scope, mucosal surfaces were carefully examined. There were no mass lesions or polyps. No inflammatory changes or ulcerations. No significant diverticulosis. There was some redundancy of the colon with spasm. The scope was retroflexed in the anal canal. There was no significant hemorrhoidal disease. Scope was then withdrawn. Patient tolerated procedure well, was sent to recovery room in good condition. CC: Leonardo Blackburn NPThe [facility] Medical [id number] NoteOPERATIVE NOTE OPERATION DATE: 04/12/2022 ADDENDUM: Follow up colonoscopy for screening should be in 10 years.[facility] [id number] NoteChief Complaint consultation for screening colonoscopy HPI Staff 51 year old female presents on consultation from Leonardo Blackburn NP for screening colonoscopy. Deniesabdominal or rectal pain. No rectal bleeding or change in bowel habits. Denies nausea or vomiting. PCP reported weight loss, patient is unsure. Never had colonoscopy in the past. No known family history of colon cancer. History of Present Illness 51 yo female with h/o intellectual disability, htn, hyperlipidemia, hypothyroidism; patient seen with her cousin, who is a caregiver, referred for colorectal screening; denies change in bms or blood with stool, no previous abdominal operations or colonoscopy; no asa or NSAID use, no SBE prophylaxis, no fmhx of GI malignancy or IBD; no tobacco use. Review of Systems PHQ Score Initial Depression Screen Score: 0 ROS - Provider Constitutional: no fever, no sweats, no weight loss. Eyes: no glasses, no blurred vision, no visual loss. ENMT: no dentures, no hoarseness, no swallowing difficulties, no hearing loss, no ear infection(s),no nose bleeds. Cardiovascular: normal blood pressure, no chest pain, regular heartbeat, no heart murmur. Respiratory: no shortness of breath, no cough, no asthma, no wheezing. Gastrointestinal: no nausea, no vomiting, no diarrhea, no constipation, no blood in stool, no change in bowel habits, no abdominal pain, no hepatitis. Genitourinary: no kidney stones, no urine infection, no dysuria. Musculoskeletal: no pain, no weakness. Skin: no changing moles, no rash, no skin lumps. Neurologic: no seizures, no epilepsy, no headache. Psychiatric: no emotional or psychiatric problem. Heme/Lymph: no bleeding problems, no anemia, no blood clots, no transfusions. Allergy/Immunologic: no swollen lymph nodes/glands, no IV drug abuse. Other: Additional ROS info: Except as noted in the above Review of Systems and in the History of Present Illness, all other systems have been reviewed and are negative or noncontributory. Physical Exam Vitals & Measurements HR: 72(Peripheral) RR: 16 BP: 90/60 HT: 54 in HT: 137 cm WT: 30.8 kg WT: 67.76 lb BMI: 16.41 HEENT: normal conjunctiva, sclera clear, no scleral icterus, EOM intact, PERRLA, oral mucosa moist without lesions. Neck: trachea midline, no mass, symmetric, no thyromegaly or nodules, no adenopathy Respiratory: lungs CTA, respirations non labored. Cardiovascular: regular rate and rhythm, no murmur, no pedal edema or varicosities. Gastrointestinal: soft, non distended, no tenderness, no masses, no palpable hernias, diastasis recti no, no hepatosplenomegaly; normal bs Lymphatic: no cervical adenopathy, Musculoskeletal: normal gait, digits and nails without infection, nodes, cyanosis, clubbing. Skin: no rashes, no lesions, no ulcers, no subcutaneous nodules, induration. Psychiatric/Neuro: oriented to time, place, person, judgement abnormal, affect appropriate for age,insight not intact, no focal deficits. Tests: review of old records completed, Discussed surgical options, risks, and possible complications with patient. Assessment/Plan 1. Screening for malignant neoplasm of colon (Z12.11: Encounter for screening for malignant neoplasm of colon) plan colonoscopy under anesthesia, informed consent obtained. Follow-up No qualifying data available Problem List/Past Medical History Ongoing BMI less than 19,adult HTN (hypertension) Hyperlipidemia Hypothyroidism Intellectual disability Screening for malignant neoplasm of colon Sinus tachycardia Underweight Historical Hypokalemia Procedure/Surgical History None. Medications amLODIPine 10 mg Tab, 10 mg= 1 tab(s), Oral, Daily hydrochlorothiazide-lisinopril 25 mg-20 mg Tab, 1 tab(s), Oral, Daily levothyroxine 25 mcg (0.025 mg) Tab, 25 mcg= 1 tab(s), Oral, Daily Potassium Chloride (Til-Eftt-Vrq M20) 20 mEq oral tablet, extended release, 20 mEq= 1 tab(s), Oral,Daily simvastatin 20 mg Tab, 20 mg= 1 tab(s), Oral, Once a day (at bedtime) Allergies No Known Allergies No Known Medication Allergies Social History Alcohol - Denies Alcohol Use, 03/08/2022 Substance Abuse - Denies Substance Abuse, 03/08/2022 Tobacco Never (less than 100 in lifetime) Tobacco Use:. Never Smokeless Tobacco Use:., 03/08/2022 Family History Family history is negativeMer[facility] Health Fairfield HospitalComment on above:Result Comment: Electronically Signed By: Christopher MEADOWS MD\Date and Time Signed: 03/08/22 16:55 [id number] Evaluation + Plan note* Assessment & Plan Note - Radha Sierra MD - 09/22/2021 12:07 PM EDTAssociated Problem(s): Prediabetes Noted on last A1c Rechecking A1c [id number] Miscellaneous Notes* Assessment & Plan Note - Radha Sierra MD - 09/22/2021 12:07 PM EDTAssociated Problem(s): Prediabetes Noted on last A1c Rechecking A1c * Assessment & Plan Note - Radha Sierra MD - 09/22/2021 12:06 PM EDTAssociated Problem(s): Elevated serum creatinine Noted on last blood work in 2019. Rechecking labs. * Assessment & Plan Note - Radha Sierra MD - 09/22/2021 12:04 PM EDTAssociated Problem(s): Sinus tachycardia, chronic Chronic. Asymptomatic. Appears to have had this as far back as 2015 per chart review. Not sure it has been worked up Will need to discuss starting a BB at next visit and cardiology referral. * Assessment & Plan Note - Radha Sierra MD - 09/22/2021 12:02 PM EDTAssociated Problem(s): Hyperlipidemia Chronic. On Zocor. Continue. Checking lipid panel. * Assessment & Plan Note - Radha Sierra MD - 09/22/2021 11:59 AM EDTAssociated Problem(s): HTN Chronic. Not at goal. Asymptomatic. Does not take her medications consistently. Encouraged her to do this. No changes to meds at this time given inconsistent use. Will see back in 3 weeks and re-evaluate. * Assessment & Plan Note - Radha Sierra MD - 09/22/2021 11:57 AM EDTAssociated Problem(s): Hypothyroidism Chronic. Reports stable blood levels on Synthroid 25 mg Rechecking labs today Refilled synthroid at current dose. documented in this [id number] Evaluation + Plan note* Assessment & Plan Note - Radha Sierra MD - 09/22/2021 12:06 PM EDTAssociated Problem(s): Elevated serum creatinine Noted on last blood work in 2019. Rechecking labs. [id number] Evaluation + Plan note* Assessment & Plan Note - Radha Sierra MD - 09/22/2021 12:04 PM EDTAssociated Problem(s): Sinus tachycardia, chronic Chronic. Asymptomatic. Appears to have had this as far back as 2016 per chart review. Not sure it has been worked up Will need to discuss starting a BB at next visit and cardiology referral. [id number] Evaluation + Plan note* Assessment & Plan Note - Radha Sierra MD - 09/22/2021 12:02 PM EDTAssociated Problem(s): Hyperlipidemia Chronic. On Zocor. Continue. Checking lipid panel. [id number] Evaluation + Plan note* Assessment & Plan Note - Radha Sierra MD - 09/22/2021 11:59 AM EDTAssociated Problem(s): HTN Chronic. Not at goal. Asymptomatic. Does not take her medications consistently. Encouraged her to do this. No changes to meds at this time given inconsistent use. Will see back in 3 weeks and re-evaluate. [id number] Evaluation + Plan note* Assessment & Plan Note - Radha Sierra MD - 09/22/2021 11:57 AM EDTAssociated Problem(s): Hypothyroidism Chronic. Reports stable blood levels on Synthroid 25 mg Rechecking labs today Refilled synthroid at current dose. [id number] History of Present illness Narrative* Radha Sierra MD - 09/22/2021 11:00 AM EDT Lindsey Polo is a 50 y.o. female Assessment/Plan: Problem List Items Addressed This Visit Endocrine Hypothyroidism Chronic. Reports stable blood levels on Synthroid 25 mg Rechecking labs today Refilled synthroid at current dose. Relevant Medications levothyroxine (Synthroid) 25 MCG tablet Other Relevant Orders TSH with Reflex Free T4 Cardiovascular and Mediastinum HTN - Primary Chronic. Not at goal. Asymptomatic. Does not take her medications consistently. Encouraged her to do this. No changes to meds at this time given inconsistent use. Will see back in 3 weeks and re-evaluate. Relevant Medications amLODIPine (NORVASC) 10 MG tablet lisinopriL-hydrochlorothiazide (PRINZIDE,ZESTORETIC) 20-25 mg per tablet potassium chloride SA (K-DUR,KLOR-CON) 20 MEQ tablet Other Sinus tachycardia, chronic Chronic. Asymptomatic. Appears to have had this as far back as 2016 per chart review. Not sure it has been worked up Will need to discuss starting a BB at next visit and cardiology referral. Prediabetes Noted on last A1c Rechecking A1c Hyperlipidemia Chronic. On Zocor. Continue. Checking lipid panel. Relevant Medications simvastatin (ZOCOR) 20 MG tablet Other Relevant Orders Lipid Panel Elevated serum creatinine Noted on last blood work in 2019. Rechecking labs. Other Visit Diagnoses Colon cancer screening Relevant Orders Cologuard Encounter for screening for malignant neoplasm of breast, unspecified screening modality Relevant Orders Mammography Screening [facility] Healthcare maintenance Relevant Orders HIV 1/2 Screen (4th Generation) Hepatitis C Antibody Return in about 3 weeks (around 10/13/2021) for Follow Up HTN, tachycardia, Annual Exam. Patient History: Lindsey Polo is a 50 y.o. female who presents for Chief Complaint Patient presents with [facility] Here with her caregiver Gely who is contributing to history HTN On Amlodipine 10 mg daily, lisinopril/hctz 20-25 mg 1 tabs daily Reports BP at home in 170s/80 Reports she takes meds 4/7 days of the week Denies any CP, ECKERT, SOB, lightheadedness MUMTAZ Last BMP in 2019 with creatinine 1.16 Prediates Last a1c 5.9 Tachycardia Elevated in office today. Denies any symptoms HLD On zocor Due for blood work Hypothyroidism Diagnosed in 2004 On synthroid 25 mcg daily -reports this dose has kept her levels at goal Due for blood work Patient Active Problem List Diagnosis Hyperlipidemia HTN Hypothyroidism Intellectual disability (POA Gely Polo, ) Short stature Hearing loss Underweight Sinus tachycardia, chronic Elevated serum creatinine Prediabetes History reviewed. No pertinent surgical history. Social History Tobacco Use Smoking status: Never Smoker Smokeless tobacco: Never Used Vaping Use Vaping Use: Never used Substance Use Topics Alcohol use: No Drug use: No Tobacco Counseling: Counseling given: Not Answered Current Outpatient Medications Medication Sig Dispense Refill amLODIPine (NORVASC) 10 MG tablet Take 1 (one) tablet (10 mg total) by mouth daily . 90 tablet 1 levothyroxine (Synthroid) 25 MCG tablet Take 1 (one) tablet (25 mcg total) by mouth every morning .90 tablet 1 lisinopriL-hydrochlorothiazide (PRINZIDE,ZESTORETIC) 20-25 mg per tablet Take 1 (one) tablet by mouth daily . 90 tablet 1 potassium chloride SA (K-DUR,KLOR-CON) 20 MEQ tablet Take 1 (one) tablet (20 mEq total) by mouth daily . 90 tablet 1 simvastatin (ZOCOR) 20 MG tablet Take 1 (one) tablet (20 mg total) by mouth daily . 90 tablet 1 No current facility-administered medications for this visit. Review of Systems Constitutional: Negative for chills and fever. Respiratory: Negative for cough and shortness of breath. Cardiovascular: Negative for chest pain. Gastrointestinal: Negative for abdominal pain. Neurological: Negative for light-headedness and headaches. Physical Exam: BP (!) 162/108 Pulse (!) 132 Temp 98.5 F (36.9 C) (Skin) Resp 16 Ht 4' 4 Wt 27.9 kg (61 lb 9.6 oz) LMP (LMP Unknown) SpO2 99% BMI 16.02 kg/m Wt Readings from Last 3 Encounters: 09/22/21 27.9 kg (61 lb 9.6 oz) 04/04/19 28.7 kg (63 lb 3.2 oz) 09/17/18 30.4 kg (67 lb) BP Readings from Last 3 Encounters: 09/22/21 (!) 162/108 04/04/19 (!) 155/89 09/17/18 (!) 146/93 Physical Exam Constitutional: General: She is not in acute distress. Appearance: She is well-developed. She is not toxic-appearing. HENT: Head: Normocephalic and atraumatic. Mouth/Throat: Mouth: Mucous membranes are moist. Eyes: Extraocular Movements: Extraocular movements intact. Pupils: Pupils are equal, round, and reactive to light. Cardiovascular: Rate and Rhythm: Regular rhythm. Tachycardia present. Pulses: Normal pulses. Heart sounds: Normal heart sounds. Pulmonary: Effort: Pulmonary effort is normal. No respiratory distress. Breath sounds: Normal breath sounds. No wheezing or rales. Abdominal: General: Bowel sounds are normal. There is no distension. Palpations: Abdomen is soft. Tenderness: There is no abdominal tenderness. Musculoskeletal: General: Normal range of motion. Cervical back: Normal range of motion and neck supple. Right lower leg: No edema. Left lower leg: No edema. Skin: General: Skin is warm and dry. Capillary Refill: Capillary refill takes less than 2 seconds. Coloration: Skin is not jaundiced. Neurological: Mental Status: She is alert. Mental status is at baseline. Comments: Alert to self and place Psychiatric: Mood and Affect: Mood normal. Behavior: Behavior normal. Health Maintenance Due Topic Date Due Colorectal Cancer Screening Never done Pap Smear Never done HIV Screening Never done Hepatitis C Screening Never done Mammogram Never done Wellness Visit 04/04/2020 COVID-19 Vaccine (3 - Booster for Pfizer series) 03/04/2021 For any new medications prescribed today, patient was educated about indications for the medication, how to take the medication and potential side effects of the medications. Depression Screening 06/07/2018 04/04/2019 09/22/2021 Little interest or pleasure in doing things 0 0 0 Feeling down, depressed, or hopeless 0 0 0 PHQ-2 Total Score 0 0 0 Trouble falling or staying asleep, or sleeping too much 0 0 - Feeling tired or having little energy 1 0 - Poor appetite or overeating 0 0 - Feeling bad about yourself - or that you are a failure or have let yourself or your family down 0 0- Trouble concentrating on things, such as reading the newspaper or watching television 0 0 - Moving or speaking so slowly that other people could have noticed. Or the opposite - being so fidgety or restless that you have been moving around a lot more than usual 1 0 - Thoughts that you would be better off , or of hurting yourself in some way 0 0 - PHQ-9 Total Score 2 0 - If you checked off any problems, how difficult have these problems made it for you to do your work,take care of things at home, or get along with other people? Not difficult at all Not difficult at all - documented in this encounterOhioHealthEvaluation + Plan note No data available for this section General Surgery [facility] + Plan noteGeneral Surgery [facility] Evaluation note* Diagnosis HTN- Primary Essential hypertension, benign Acquired hypothyroidism Unspecified hypothyroidism Hyperlipidemia, unspecified hyperlipidemia type Encounter for screening for malignant neoplasm of breast, unspecified screening modality Sinus tachycardia, chronic Other specified cardiac dysrhythmias Elevated serum creatinine Other nonspecific findings on examination of blood Prediabetes Other abnormal glucose documented in this encounter [facility] note* Diagnosis HTN- Primary Essential hypertension, benign Acquired hypothyroidism Unspecified hypothyroidism Hyperlipidemia, unspecified hyperlipidemia type Encounter for screening for malignant neoplasm of breast, unspecified screening modality Sinus tachycardia, chronic Other specified cardiac dysrhythmias Elevated serum creatinine Other nonspecific findings on examination of blood Prediabetes Other abnormal glucose documented in this encounter [facility] note* Diagnosis Acquired hypothyroidism Unspecified hypothyroidism documented in this encounter [facility] note* Diagnosis Atypical ductal hyperplasia of left breast- Primary Encounter for screening mammogram for malignant neoplasm of breast Other screening mammogram documented in this encounter [facility] note* Diagnosis HTN Essential hypertension, benign documented in this encounter [facility]No [facility] Other History general Narrative - Reported* Type Description Date Medical History CKD 3b Medical History HYPERTENSION Medical History HYPERLIPIDEMIA Medical History OSTEOPOROSIS Medical History HYPOTHYROIDISM Surgical History LEFT BREAST BIOPSY [address] [facility] Other Hospital Discharge instructions No data available for this section General Surgery [employer] Progress note No data available for this section General Surgery [employer] Reaunr for referral (narrative) Referred by: Christopher MEADOWS MD General Surgery [employer] reason for referral (narrative)* Diagnostic Procedure Only (Routine) - Pending Review Specialty Diagnoses / Procedures Referred By Hans merchant Referred To Contact [facility] Diagnoses Atypical ductal hyperplasia of left breast Encounter for screening mammogram for malignant neoplasm of breast Procedures MAURICIO SCREENING W ROOSEVELT SCREENING DIGITAL BREAST TOMOSYNTHESIS BI SCREENING MAMMOGRAPHY BI 2-VIEW BREAST INC CAD Kaden Golden MD [address] [place] [id number] [facility] [address] [place] [phone] Referral ID Status Reason Start Date Expiration Date Visits Requested Visits Authorized [id number] Pending Review Auto-Generat ed Referral 08/02/2022 09/01/2023 1 1 [facility] Instructions * Patient Instructions - Nini Pelletier ARMEN - 09/26/2017 8:31 AM EDT DASH Diet: Care Instructions Your Care Instructions The DASH diet is an eating plan that can help lower your blood pressure. DASH stands for Dietary Approaches to Stop Hypertension. Hypertension is high blood pressure. The DASH diet focuses on eating foods that are high in calcium, potassium, and magnesium. These nutrients can lower blood pressure. The foods that are highest in these nutrients are fruits, vegetables, low-fat dairy products, nuts, seeds, and legumes. But taking calcium, potassium, and magnesium supplements instead of eating foods that are high in those nutrients does not have the same effect. The DASH diet also includes whole grains, fish, and poultry. The DASH diet is one of several lifestyle changes your doctor may recommend to lower your high blood pressure. Your doctor may also want you to decrease the amount of sodium in your diet. Lowering sodium while following the DASH diet can lower blood pressure even further than just the DASH diet alone. Follow-up care is a mckoy part of your treatment and safety. Be sure to make and go to all appointments, and call your doctor if you are having problems. It's also a good idea to know your test resultsand keep a list of the medicines you take. How can you care for yourself at home? Following the DASH diet Eat 4 to 5 servings of fruit each day. A serving is 1 medium-sized piece of fruit, cup chopped or canned fruit, 1/4 cup dried fruit, or 4 ounces ( cup) of fruit juice. Choose fruit more often than fruit juice. Eat 4 to 5 servings of vegetables each day. A serving is 1 cup of lettuce or raw leafy vegetables, cup of chopped or cooked vegetables, or 4 ounces ( cup) of vegetable juice. Choose vegetables more often than vegetable juice. Get 2 to 3 servings of low-fat and fat-free dairy each day. A serving is 8 ounces of milk, 1 cup ofyogurt, or 1 ounces of cheese. Eat 6 to 8 servings of grains each day. A serving is 1 slice of bread, 1 ounce of dry cereal, or cup of cooked rice, pasta, or cooked cereal. Try to choose whole-grain products as much as possible. Limit lean meat, poultry, and fish to 2 servings each day. A serving is 3 ounces, about the size ofa deck of cards. Eat 4 to 5 servings of nuts, seeds, and legumes (cooked dried beans, lentils, and split peas) each week. A serving is 1/3 cup of nuts, 2 tablespoons of seeds, or cup of cooked beans or peas. Limit fats and oils to 2 to 3 servings each day. A serving is 1 teaspoon of vegetable oil or 2 tablespoons of salad dressing. Limit sweets and added sugars to 5 servings or less a week. A serving is 1 tablespoon jelly or jam,cup sorbet, or 1 cup of lemonade. Eat less than 2,300 milligrams (mg) of sodium a day. If you limit your sodium to 1,500 mg a day, you can lower your blood pressure even more. Tips for success Start small. Do not try to make dramatic changes to your diet all at once. You might feel that you are missing out on your favorite foods and then be more likely to not follow the plan. Make small changes, and stick with them. Once those changes become habit, add a few more changes. Try some of the following: Make it a goal to eat a fruit or vegetable at every meal and at snacks. This will make it easy to get the recommended amount of fruits and vegetables each day. Try yogurt topped with fruit and nuts for a snack or healthy dessert. Add lettuce, tomato, cucumber, and onion to sandwiches. Combine a ready-made pizza crust with low-fat mozzarella cheese and lots of vegetable toppings. Tryusing tomatoes, squash, spinach, broccoli, carrots, cauliflower, and onions. Have a variety of cut-up vegetables with a low-fat dip as an appetizer instead of chips and dip. Sprinkle sunflower seeds or chopped almonds over salads. Or try adding chopped walnuts or almonds to cooked vegetables. Try some vegetarian meals using beans and peas. Add garbanzo or kidney beans to salads. Make burritos and tacos with mashed fermin beans or black beans. Where can you learn more? Log into your personal health record on https://MyChart.[employer] and enter H967 in the Education box to learn more about DASH Diet: Care Instructions. Current as of: May 02, 2017 Content Version: . [employer]. Care instructions adapted under license by your healthcare professional. If you have questions about a medical condition or this instruction, always ask your healthcare professional. [employer] disclaims any warranty or liability for your use of this information. in this encounter* Patient Instructions - Nini Pelletier CNP - 08/14/2017 10:56 AM EDT Check blood pressure once daily around the same time and bring results to your follow up appointment. DASH Diet: Care Instructions Your Care Instructions The DASH diet is an eating plan that can help lower your blood pressure. DASH stands for Dietary Approaches to Stop Hypertension. Hypertension is high blood pressure. The DASH diet focuses on eating foods that are high in calcium, potassium, and magnesium. These nutrients can lower blood pressure. The foods that are highest in these nutrients are fruits, vegetables, low-fat dairy products, nuts, seeds, and legumes. But taking calcium, potassium, and magnesium supplements instead of eating foods that are high in those nutrients does not have the same effect. The DASH diet also includes whole grains, fish, and poultry. The DASH diet is one of several lifestyle changes your doctor may recommend to lower your high blood pressure. Your doctor may also want you to decrease the amount of sodium in your diet. Lowering sodium while following the DASH diet can lower blood pressure even further than just the DASH diet alone. Follow-up care is a mckoy part of your treatment and safety. Be sure to make and go to all appointments, and call your doctor if you are having problems. It's also a good idea to know your test resultsand keep a list of the medicines you take. How can you care for yourself at home? Following the DASH diet Eat 4 to 5 servings of fruit each day. A serving is 1 medium-sized piece of fruit, cup chopped or canned fruit, 1/4 cup dried fruit, or 4 ounces ( cup) of fruit juice. Choose fruit more often than fruit juice. Eat 4 to 5 servings of vegetables each day. A serving is 1 cup of lettuce or raw leafy vegetables, cup of chopped or cooked vegetables, or 4 ounces ( cup) of vegetable juice. Choose vegetables more often than vegetable juice. Get 2 to 3 servings of low-fat and fat-free dairy each day. A serving is 8 ounces of milk, 1 cup ofyogurt, or 1 ounces of cheese. Eat 6 to 8 servings of grains each day. A serving is 1 slice of bread, 1 ounce of dry cereal, or cup of cooked rice, pasta, or cooked cereal. Try to choose whole-grain products as much as possible. Limit lean meat, poultry, and fish to 2 servings each day. A serving is 3 ounces, about the size ofa deck of cards. Eat 4 to 5 servings of nuts, seeds, and legumes (cooked dried beans, lentils, and split peas) each week. A serving is 1/3 cup of nuts, 2 tablespoons of seeds, or cup of cooked beans or peas. Limit fats and oils to 2 to 3 servings each day. A serving is 1 teaspoon of vegetable oil or 2 tablespoons of salad dressing. Limit sweets and added sugars to 5 servings or less a week. A serving is 1 tablespoon jelly or jam,cup sorbet, or 1 cup of lemonade. Eat less than 2,300 milligrams (mg) of sodium a day. If you limit your sodium to 1,500 mg a day, you can lower your blood pressure even more. Tips for success Start small. Do not try to make dramatic changes to your diet all at once. You might feel that you are missing out on your favorite foods and then be more likely to not follow the plan. Make small changes, and stick with them. Once those changes become habit, add a few more changes. Try some of the following: Make it a goal to eat a fruit or vegetable at every meal and at snacks. This will make it easy to get the recommended amount of fruits and vegetables each day. Try yogurt topped with fruit and nuts for a snack or healthy dessert. Add lettuce, tomato, cucumber, and onion to sandwiches. Combine a ready-made pizza crust with low-fat mozzarella cheese and lots of vegetable toppings. Tryusing tomatoes, squash, spinach, broccoli, carrots, cauliflower, and onions. Have a variety of cut-up vegetables with a low-fat dip as an appetizer instead of chips and dip. Sprinkle sunflower seeds or chopped almonds over salads. Or try adding chopped walnuts or almonds to cooked vegetables. Try some vegetarian meals using beans and peas. Add garbanzo or kidney beans to salads. Make burritos and tacos with mashed fermin beans or black beans. Where can you learn more? Log into your personal health record on https://[employer] and enter H967 in the Education box to learn more about DASH Diet: Care Instructions. Current as of: August 18, 2015 Content Version: 11.2 8696-3741 [employer]. Care instructions adapted under license by your healthcare professional. If you have questions about a medical condition or this instruction, always ask your healthcare professional. [employer] disclaims any warranty or liability for your use of this information. in this encounter* Patient Instructions - Nini Pelletier CNP - 07/31/2017 10:08 AM EST DASH Diet: Care Instructions Your Care Instructions The DASH diet is an eating plan that can help lower your blood pressure. DASH stands for Dietary Approaches to Stop Hypertension. Hypertension is high blood pressure. The DASH diet focuses on eating foods that are high in calcium, potassium, and magnesium. These nutrients can lower blood pressure. The foods that are highest in these nutrients are fruits, vegetables, low-fat dairy products, nuts, seeds, and legumes. But taking calcium, potassium, and magnesium supplements instead of eating foods that are high in those nutrients does not have the same effect. The DASH diet also includes whole grains, fish, and poultry. The DASH diet is one of several lifestyle changes your doctor may recommend to lower your high blood pressure. Your doctor may also want you to decrease the amount of sodium in your diet. Lowering sodium while following the DASH diet can lower blood pressure even further than just the DASH diet alone. Follow-up care is a mckoy part of your treatment and safety. Be sure to make and go to all appointments, and call your doctor if you are having problems. It's also a good idea to know your test resultsand keep a list of the medicines you take. How can you care for yourself at home? Following the DASH diet Eat 4 to 5 servings of fruit each day. A serving is 1 medium-sized piece of fruit, cup chopped or canned fruit, 1/4 cup dried fruit, or 4 ounces ( cup) of fruit juice. Choose fruit more often than fruit juice. Eat 4 to 5 servings of vegetables each day. A serving is 1 cup of lettuce or raw leafy vegetables, cup of chopped or cooked vegetables, or 4 ounces ( cup) of vegetable juice. Choose vegetables more often than vegetable juice. Get 2 to 3 servings of low-fat and fat-free dairy each day. A serving is 8 ounces of milk, 1 cup ofyogurt, or 1 ounces of cheese. Eat 6 to 8 servings of grains each day. A serving is 1 slice of bread, 1 ounce of dry cereal, or cup of cooked rice, pasta, or cooked cereal. Try to choose whole-grain products as much as possible. Limit lean meat, poultry, and fish to 2 servings each day. A serving is 3 ounces, about the size ofa deck of cards. Eat 4 to 5 servings of nuts, seeds, and legumes (cooked dried beans, lentils, and split peas) each week. A serving is 1/3 cup of nuts, 2 tablespoons of seeds, or cup of cooked beans or peas. Limit fats and oils to 2 to 3 servings each day. A serving is 1 teaspoon of vegetable oil or 2 tablespoons of salad dressing. Limit sweets and added sugars to 5 servings or less a week. A serving is 1 tablespoon jelly or jam,cup sorbet, or 1 cup of lemonade. Eat less than 2,300 milligrams (mg) of sodium a day. If you limit your sodium to 1,500 mg a day, you can lower your blood pressure even more. Tips for success Start small. Do not try to make dramatic changes to your diet all at once. You might feel that you are missing out on your favorite foods and then be more likely to not follow the plan. Make small changes, and stick with them. Once those changes become habit, add a few more changes. Try some of the following: Make it a goal to eat a fruit or vegetable at every meal and at snacks. This will make it easy to get the recommended amount of fruits and vegetables each day. Try yogurt topped with fruit and nuts for a snack or healthy dessert. Add lettuce, tomato, cucumber, and onion to sandwiches. Combine a ready-made pizza crust with low-fat mozzarella cheese and lots of vegetable toppings. Tryusing tomatoes, squash, spinach, broccoli, carrots, cauliflower, and onions. Have a variety of cut-up vegetables with a low-fat dip as an appetizer instead of chips and dip. Sprinkle sunflower seeds or chopped almonds over salads. Or try adding chopped walnuts or almonds to cooked vegetables. Try some vegetarian meals using beans and peas. Add garbanzo or kidney beans to salads. Make burritos and tacos with mashed fermin beans or black beans. Where can you learn more? Log into your personal health record on https://[employer] and enter H967 in the Education box to learn more about DASH Diet: Care Instructions. Current as of: August 18, 2015 Content Version: 11.2 3443-7048 Kii. Care instructions adapted under license by your healthcare professional. If you have questions about a medical condition or this instruction, always ask your healthcare professional. [employer] disclaims any warranty or liability for your use of this information. High Blood Pressure: Care Instructions Your Care Instructions If your blood pressure is usually above 140/90, you have high blood pressure, or hypertension. Thatmeans the top number is 140 or higher or the bottom number is 90 or higher, or both. Despite what a lot of people think, high blood pressure usually doesn't cause headaches or make youfeel dizzy or lightheaded. It usually has no symptoms. But it does increase your risk for heart attack, stroke, and kidney or eye damage. The higher your blood pressure, the more your risk increases. Your doctor will give you a goal for your blood pressure. Your goal will be based on your health and your age. An example of a goal is to keep your blood pressure below 140/90. Lifestyle changes, such as eating healthy and being active, are always important to help lower blood pressure. You might also take medicine to reach your blood pressure goal. Follow-up care is a mckoy part of your treatment and safety. Be sure to make and go to all appointments, and call your doctor if you are having problems. It's also a good idea to know your test resultsand keep a list of the medicines you take. How can you care for yourself at home? Medical treatment If you stop taking your medicine, your blood pressure will go back up. You may take one or more types of medicine to lower your blood pressure. Be safe with medicines. Take your medicine exactly as prescribed. Call your doctor if you think you are having a problem with your medicine. Talk to your doctor before you start taking aspirin every day. Aspirin can help certain people lower their risk of a heart attack or stroke. But taking aspirin isn't right for everyone, because it can cause serious bleeding. See your doctor regularly. You may need to see the doctor more often at first or until your blood pressure comes down. If you are taking blood pressure medicine, talk to your doctor before you take decongestants or anti-inflammatory medicine, such as ibuprofen. Some of these medicines can raise blood pressure. Learn how to check your blood pressure at home. Lifestyle changes Stay at a healthy weight. This is especially important if you put on weight around the waist. Losing even 10 pounds can help you lower your blood pressure. If your doctor recommends it, get more exercise. Walking is a good choice. Bit by bit, increase theamount you walk every day. Try for at least 30 minutes on most days of the week. You also may want to swim, bike, or do other activities. Avoid or limit alcohol. Talk to your doctor about whether you can drink any alcohol. Try to limit how much sodium you eat to less than 2,300 milligrams (mg) a day. Your doctor may ask you to try to eat less than 1,500 mg a day. Eat plenty of fruits (such as bananas and oranges), vegetables, legumes, whole grains, and low-fat dairy products. Lower the amount of saturated fat in your diet. Saturated fat is found in animal products such as milk, cheese, and meat. Limiting these foods may help you lose weight and also lower your risk for heart disease. Do not smoke. Smoking increases your risk for heart attack and stroke. If you need help quitting, talk to your doctor about stop-smoking programs and medicines. These can increase your chances of quitting for good. When should you call for help? Call 911 anytime you think you may need emergency care. This may mean having symptoms that suggest that your blood pressure is causing a serious heart or blood vessel problem. Your blood pressure maybe over 180/110. For example, call 911 if: You have symptoms of a heart attack. These may include: Chest pain or pressure, or a strange feeling in the chest. Sweating. Shortness of breath. Nausea or vomiting. Pain, pressure, or a strange feeling in the back, neck, jaw, or upper belly or in one or both shoulders or arms. Lightheadedness or sudden weakness. A fast or irregular heartbeat. You have symptoms of a stroke. These may include: Sudden numbness, tingling, weakness, or loss of movement in your face, arm, or leg, especially on only one side of your body. Sudden vision changes. Sudden trouble speaking. Sudden confusion or trouble understanding simple statements. Sudden problems with walking or balance. A sudden, severe headache that is different from past headaches. You have severe back or belly pain. Do not wait until your blood pressure comes down on its own. Get help right away. Call your doctor now or seek immediate care if: Your blood pressure is much higher than normal (such as 180/110 or higher), but you don't have symptoms. You think high blood pressure is causing symptoms, such as: Severe headache. Blurry vision. Watch closely for changes in your health, and be sure to contact your doctor if: Your blood pressure measures 140/90 or higher at least 2 times. That means the top number is 140 orhigher or the bottom number is 90 or higher, or both. You think you may be having side effects from your blood pressure medicine. Your blood pressure is usually normal, but it goes above normal at least 2 times. Where can you learn more? Log into your personal health record on https://[employer] and enter X567 in the Education box to learn more about High Blood Pressure: Care Instructions. Current as of: January 03, 2016 Content Version: 11.2 5817-6023 [employer]. Care instructions adapted under license by your healthcare professional. If you have questions about a medical condition or this instruction, always ask your healthcare professional. [employer] disclaims any warranty or liability for your use of this information. Learning About High Blood Pressure What is high blood pressure? Blood pressure is a measure of how hard the blood pushes against the acuna of your arteries. It's normal for blood pressure to go up and down throughout the day, but if it stays up, you have high blood pressure. Another name for high blood pressure is hypertension. Two numbers tell you your blood pressure. The first number is the systolic pressure. It shows how hard the blood pushes when your heart is pumping. The second number is the diastolic pressure. It shows how hard the blood pushes between heartbeats, when your heart is relaxed and filling with blood. A blood pressure of less than 120/80 (say 120 over 80 ) is ideal for an adult. High blood pressureis 140/90 or higher. You have high blood pressure if your top number is 140 or higher or your bottom number is 90 or higher, or both. Many people fall into the category in between, called prehypertension. People with prehypertension need to make lifestyle changes to bring their blood pressure down and help prevent or delay high blood pressure. What happens when you have high blood pressure? Blood flows through your arteries with too much force. Over time, this damages the acuna of your arteries. But you can't feel it. High blood pressure usually doesn't cause symptoms. Fat and calcium start to build up in your arteries. This buildup is called plaque. Plaque makes your arteries narrower and stiffer. Blood can't flow through them as easily. This lack of good blood flow starts to damage some of the organs in your body. This can lead to problems such as coronary artery disease and heart attack, heart failure, stroke, kidney failure, and eye damage. How can you prevent high blood pressure? Stay at a healthy weight. Try to limit how much sodium you eat to less than 2,300 milligrams (mg) a day. If you limit your sodium to 1,500 mg a day, you can lower your blood pressure even more. Buy foods that are labeled unsalted, sodium-free, or low-sodium. Foods labeled reduced-sodium and light sodium may still have too much sodium. Flavor your food with garlic, lemon juice, onion, vinegar, herbs, and spices instead of salt. Do not use soy sauce, steak sauce, onion salt, garlic salt, mustard, or ketchup on your food. Use less salt (or none) when recipes call for it. You can often use half the salt a recipe calls for without losing flavor. Be physically active. Get at least 30 minutes of exercise on most days of the week. Walking is a good choice. You also may want to do other activities, such as running, swimming, cycling, or playing tennis or team sports. Limit alcohol to 2 drinks a day for men and 1 drink a day for women. Eat plenty of fruits, vegetables, and low-fat dairy products. Eat less saturated and total fats. How is high blood pressure treated? Your doctor will suggest making lifestyle changes. For example, your doctor may ask you to eat healthy foods, quit smoking, lose extra weight, and be more active. If lifestyle changes don't help enough or your blood pressure is very high, you will have to take medicine every day. Follow-up care is a mckoy part of your treatment and safety. Be sure to make and go to all appointments, and call your doctor if you are having problems. It's also a good idea to know your test resultsand keep a list of the medicines you take. Where can you learn more? Log into your personal health record on https://[employer] and enter P501 in the Education box to learn more about Learning About High Blood Pressure. Current as of: August 18, 2015 Content Version: 11.2 1445-5133 [employer]. Care instructions adapted under license by your healthcare professional. If you have questions about a medical condition or this instruction, always ask your healthcare professional. [employer] disclaims any warranty or liability for your use of this information. in this encounter Assessments Diagnosis HTN Essential hypertension, benign Acquired hypothyroidism Unspecified hypothyroidism Diagnosis HTN Essential hypertension, benign Diagnosis HTN - Primary Essential hypertension, benign Acquired hypothyroidism Unspecified hypothyroidism Hypokalemia Hypopotassemia Diagnosis Hyperlipidemia, unspecified hyperlipidemia type - Primary HTN Essential hypertension, benign Acquired hypothyroidism Unspecified hypothyroidism Hypokalemia Hypopotassemia Diagnosis Bilateral hearing loss, unspecified hearing loss type- Primary Intellectual disability (CORBIN Polo, ) Unspecified mental retardation Short stature Diagnosis Well adult exam- Primary Routine general medical examination at a health care facility HTN Essential hypertension, benign Acquired hypothyroidism Unspecified hypothyroidism Hyperlipidemia, unspecified hyperlipidemia type Unexplained weight loss Loss of weight Screening for malignant neoplasm of breast Breast screening, unspecified Hearing loss, unspecified hearing loss type, unspecified laterality Family history of diabetes mellitus History of Present Illness * Nahum Srinivasan, ARMEN - 09/17/2018 11:23 AM EDT Patient Name: Lindsey Polo : 1970 Location: [address] [facility], [place] [address] ASSESSMENT: Diagnoses and all orders for this visit: Bilateral hearing loss, unspecified hearing loss type Intellectual disability (CORBIN Polo, ) Short stature PLAN: -Form completed for [employer]. Pt appears to be appropriate for this type of transportation. Pt is not safe to ride the public bus alone. -Pt to return for a physical in the next month. Risks/benefits/alternatives for the above treatments were discussed and patient expressed understanding and agreement to proceed with the plan as documented. Current Outpatient Medications: amLODIPine (NORVASC) 10 MG tablet, Take 1 (one) tablet (10 mg total) by mouth daily ., Disp: 30 tablet, Rfl: 3 blood pressure test kit-small Kit, 1 kit by Miscellaneous route daily., Disp: 1 each, Rfl: 0 levothyroxine (SYNTHROID) 25 MCG tablet, Take 1 (one) tablet (25 mcg total) by mouth every morning ., Disp: 30 tablet, Rfl: 3 lisinopril (PRINIVIL,ZESTRIL) 10 MG tablet, Take 1 (one) tablet (10 mg total) by mouth daily ., Disp: 30 tablet, Rfl: 3 lisinopril-hydrochlorothiazide (PRINZIDE,ZESTORETIC) 20-25 mg per tablet, Take 1 (one) tablet by mouth daily ., Disp: 30 tablet, Rfl: 0 potassium chloride SA (K-DUR,KLOR-CON) 20 MEQ tablet, Take 1 (one) tablet (20 mEq total) by mouth daily To supplement potassium ., Disp: 30 tablet, Rfl: 3 simvastatin (ZOCOR) 20 MG tablet, Take 1 (one) tablet (20 mg total) by mouth daily ., Disp: 30 tablet, Rfl: 3 FOLLOW UP: No follow-ups on file. .............................................................................. SUBJECTIVE: Pt arrived int he office with her cousin. Pt's cousin (CORBIN) reports that the patient has been having trouble with her transportation through her work place ([employer]). She reports that the driversare rude and sometimes don't come . She spoke to the pt's [employer] major case detective (Johnson Cheek) re:the situation. She suggested that the pt try using [employer]. Pt needs the application signed. Pt's cousin reports that she cannot follow multi step directions, handle situations where directions may change, make safe decisions while waiting at a bus stop, or safely walk to or from the bus stop safely. She is also concerned that the pt may not be able to identify the correct bus, and is afraid to cross the street alone. Cousin did most of the speaking, but pt did verbalize that she does not like her current transportation and would like to start using the [employer] Review of Systems Constitutional: Negative for activity change, appetite change, fatigue and unexpected weight change. HENT: Negative for congestion and dental problem. Eyes: Negative for visual disturbance. Respiratory: Negative for chest tightness, shortness of breath and wheezing. Cardiovascular: Negative for chest pain, palpitations and leg swelling. Gastrointestinal: Negative for constipation, diarrhea and nausea. Genitourinary: Negative for difficulty urinating and dysuria. Musculoskeletal: Negative for back pain. Skin: Negative for color change, pallor and rash. Neurological: Negative for syncope, weakness, light-headedness and headaches. Psychiatric/Behavioral: Negative for sleep disturbance and suicidal ideas. PFSH: The following portions of the patient's history were reviewed and updated as appropriate: allergies, current medications, past family history, past medical history, past social history, past surgicalhistory and problem list. OBJECTIVE: BP (!) 146/93 Pulse (!) 109 Temp 97.8 F (36.6 C) Ht 4' 4.5 Wt 30.4 kg (67 lb) SpO2 98% BMI 17.09 kg/m Physical Exam Constitutional: She appears well-developed and well-nourished. HENT: Head: Normocephalic and atraumatic. Eyes: Pupils are equal, round, and reactive to light. Neck: Normal range of motion. Neck supple. Cardiovascular: Normal rate, regular rhythm, normal heart sounds and intact distal pulses. Pulmonary/Chest: Effort normal and breath sounds normal. Abdominal: Bowel sounds are normal. Neurological: She is alert. Skin: Skin is warm and dry. * Nahum Srinivasan CNP - 09/17/2018 9:20 AM EDT documented in this encounter* Suraj Addison MD - 04/04/2019 9:53 AM EST Subjective Lindsey Polo is a 48 y.o. female who presents for a Medicare Wellness Visit. Patient Name: Lindsey Polo : 1970 Location: [address] [place] [id number] ASSESSMENT: Diagnoses and all orders for this visit: Well adult exam HTN - Comprehensive Metabolic Panel; Future - Microalbumin/Creatinine Ratio, UR Random; Future - Lipid Panel; Future - lisinopril-hydrochlorothiazide (PRINZIDE,ZESTORETIC) 20-25 mg per tablet; Take 1 (one) tablet by mouth daily . - amLODIPine (NORVASC) 10 MG tablet; Take 1 (one) tablet (10 mg total) by mouth daily . - Ambulatory referral to Nephrology; Future Acquired hypothyroidism - TSH; Future - levothyroxine (Synthroid) 25 MCG tablet; Take 1 (one) tablet (25 mcg total) by mouth every morning . Hyperlipidemia, unspecified hyperlipidemia type - simvastatin (ZOCOR) 20 MG tablet; Take 1 (one) tablet (20 mg total) by mouth daily . Unexplained weight loss - Ambulatory referral to Gastroenterology; Future - CBC and Differential; Future Screening for malignant neoplasm of breast - Mammography Screening Bilateral; Future Hearing loss, unspecified hearing loss type, unspecified laterality - Ambulatory referral to Audiology; Future Family history of diabetes mellitus - Hemoglobin A1c; Future PLAN: -Referral to GI, Nephro and audiology -F/u in 1 month for BP re-check -Check labs to r/o thyroid or other etiology -Declined eval for memory impairment as it's chronic and unchanged per POA/cousin. Risks/benefits/alternatives discussed and patient expressed understanding and agreement to proceed with the plan as documented. Alarming red flag symptoms discussed with the patient, instructions given to seek immediate medical attention at the ER if any such symptoms develop. Patient expressed understanding. New medication educated provided; indications, cautions, warnings,possible side effects and adversereactions were discussed. Questions answered. Current Outpatient Medications: amLODIPine (NORVASC) 10 MG tablet, Take 1 (one) tablet (10 mg total) by mouth daily ., Disp: 30 tablet, Rfl: 1 levothyroxine (Synthroid) 25 MCG tablet, Take 1 (one) tablet (25 mcg total) by mouth every morning ., Disp: 30 tablet, Rfl: 1 lisinopril-hydrochlorothiazide (PRINZIDE,ZESTORETIC) 20-25 mg per tablet, Take 1 (one) tablet by mouth daily ., Disp: 30 tablet, Rfl: 1 potassium chloride SA (K-DUR,KLOR-CON) 20 MEQ tablet, Take 1 (one) tablet (20 mEq total) by mouth daily To supplement potassium ., Disp: 30 tablet, Rfl: 3 simvastatin (ZOCOR) 20 MG tablet, Take 1 (one) tablet (20 mg total) by mouth daily ., Disp: 30 tablet, Rfl: 1 FOLLOW UP: No follow-ups on file. .............................................................................. SUBJECTIVE: In addition to AWV pt here for chronics HTN - taking meds daily. Not checking BP at home. No acute symptoms. Not seen nephro for > 2 years Weight loss - etiology unclear. No GI eval. No blood or mucus in stool. No excess urination. Hypothyroid - taking meds as rxn. Thyroid normal last time checked. Down 4 lbs since last check Hyperlipid - tolerating statin, taking daily Review of Systems Constitutional: Positive for unexpected weight change. Negative for chills, diaphoresis, fatigue and fever. HENT: Negative for hearing loss. Eyes: Negative for photophobia and visual disturbance. Respiratory: Negative for cough and shortness of breath. Cardiovascular: Negative for chest pain, palpitations and leg swelling. Gastrointestinal: Negative for blood in stool, diarrhea, nausea and vomiting. Genitourinary: Negative for difficulty urinating, dysuria and hematuria. Skin: Negative for rash. Neurological: Negative for dizziness, tremors, weakness, numbness and headaches. Psychiatric/Behavioral: Negative for self-injury, sleep disturbance and suicidal ideas. PFSH: The following portions of the patient's history were reviewed and updated as appropriate: allergies, current medications, past family history, past medical history, past social history, past surgicalhistory and problem list. OBJECTIVE: BP (!) 155/89 Pulse 95 Temp 97.6 F (36.4 C) (Oral) Ht 4' 4.5 Wt 28.7 kg (63 lb 3.2 oz) SpO2 98% BMI 16.12 kg/m Physical Exam Constitutional: She is oriented to person, place, and time. No distress. Underweight HENT: Head: Normocephalic and atraumatic. Neck: Normal range of motion. Neck supple. Cardiovascular: Normal rate, regular rhythm, normal heart sounds and normal pulses. Pulmonary/Chest: Effort normal and breath sounds normal. No respiratory distress. She has no wheezes. She has no rales. Neurological: She is alert and oriented to person, place, and time. She has normal strength and normal reflexes. She displays no tremor. No cranial nerve deficit or sensory deficit. Skin: Skin is warm and dry. She is not diaphoretic. Psychiatric: She has a normal mood and affect. Her behavior is normal. Judgment and thought contentnormal. Cognition and memory are impaired. She exhibits abnormal recent memory. Nursing note and vitals reviewed. Medicare Risk Assessment Do you have an Advanced Directive (Living Will and/or Durable Power of Utility Tender Carding for Health Care)?: Copy on file What is your exercise level?: Moderate What is your diet?: Regular Can you prepare your own meals?: Yes Do you have trouble with finding transportation?: No Because of any health problems, do you need the help of another person with your personal care needs? (For example, eating, bathing, dressing, or getting around the house.): (!) Yes Does your home have throw rugs, poor lighting or slippery bathtub or shower?: No Does your home have grab bars in bathrooms or handrails on stairs and steps?: Yes During the past four weeks, how would you rate your health in general?: Good Whether or not you use a hearing aid, do you think you have a hearing problem or do others think you have a hearing problem?: (!) Yes Whether or not you use glasses or contacts, do you have difficulty driving, watching television, reading, or doing any of your daily activities because of your eyesight?: No In the past six months, have you had an unexplained weight loss of 10 pounds or more?: (!) Yes How often do you have trouble taking medicines the way you have been told to take them?: I always take as prescribed Falls Risk Assessment Fell in past year: 0 (No) Unsteady when walks: 0 (No) Worried about fallin (No) Advised to use cane/walker?: 0 (No) Holds onto furniture/acuna: 0 (No) Uses hands to stand up from a chair: 0 (No) Trouble stepping onto curb: 0 (No) Rushes to toilet: 0 (No) Lost feeling in feet: 0 (No) Medicine makes me light-headed: 0 (No) Medicine for sleep or mood: 0 (No) Often feel sad/depressed: 0 (No) Patient Self Risk Assessment Score: 0 Medicare Mini Cog Step 2: Clock Drawing Step 2 score: (!) Inability or refusal to draw a clock - 0 points Step 3: Three Word Recall Step 3: Three Word Recall Score: 2 Words Recalled Total score = Word Recall score + Clock Draw score A cut point of <3 on the Mini-Cog has been validated for dementia screening, but many individuals with clinically meaningful cognitive impairment will score higher. A cut point of <4 may indicate a need for further evaluation of cognitive status.: (!) 2 PHQ2 (and 9, if needed) Little interest or pleasure in doing things: 0 Feeling down, depressed, or hopeless: 0 PHQ-2 Total Score: 0 Trouble falling or staying asleep, or sleeping too much: 0 Feeling tired or having little energy: 0 Poor appetite or overeatin Feeling bad about yourself - or that you are a failure or have let yourself or your family down: 0 Trouble concentrating on things, such as reading the newspaper or watching television: 0 Moving or speaking so slowly that other people could have noticed. Or the opposite - being so fidgety or restless that you have been moving around a lot more than usual: 0 Thoughts that you would be better off , or of hurting yourself in some way: 0 PHQ-9 Total Score: 0 If you checked off any problems, how difficult have these problems made it for you to do your work,take care of things at home, or get along with other people?: Not difficult at all Comprehensive Medical and Social History: Patient Active Problem List Diagnosis Hyperlipidemia HTN Hypokalemia Hypothyroidism Intellectual disability ([facility], ) Short stature Hearing loss Underweight Sinus tachycardia, chronic Past Medical History: Diagnosis Date CKD*, Dr. Ruiz Disease of thyroid gland Hyperlipidemia 12/10/2009 Hypertension No past surgical history on file. Current Outpatient Medications Medication Sig Dispense Refill amLODIPine (NORVASC) 10 MG tablet Take 1 (one) tablet (10 mg total) by mouth daily . 30 tablet 1 levothyroxine (Synthroid) 25 MCG tablet Take 1 (one) tablet (25 mcg total) by mouth every morning .30 tablet 1 lisinopril-hydrochlorothiazide (PRINZIDE,ZESTORETIC) 20-25 mg per tablet Take 1 (one) tablet by mouth daily . 30 tablet 1 potassium chloride SA (K-DUR,KLOR-CON) 20 MEQ tablet Take 1 (one) tablet (20 mEq total) by mouth daily To supplement potassium . 30 tablet 3 simvastatin (ZOCOR) 20 MG tablet Take 1 (one) tablet (20 mg total) by mouth daily . 30 tablet 1 No current facility-administered medications for this visit. Social History Socioeconomic History Marital status: Single Spouse name: Not on file Number of children: Not on file Years of education: Not on file Highest education level: Not on file Occupational History Not on file Social Needs Financial resource strain: Not on file Food insecurity: Worry: Never true Inability: Never true Transportation needs: Medical: Not on file Non-medical: Not on file Tobacco Use Smoking status: Never Smoker Smokeless tobacco: Never Used Substance and Sexual Activity Alcohol use: No Drug use: No Sexual activity: Never Lifestyle Physical activity: Days per week: Not on file Minutes per session: Not on file Stress: Not on file Relationships Social connections: Talks on phone: Not on file Gets together: Not on file Attends yazdanism service: Not on file Active member of club or organization: Not on file Attends meetings of clubs or organizations: Not on file Relationship status: Not on file Other Topics Concern Not on file Social History Narrative Not on file Allergies: No Known Allergies Care Team Patient Care Team: Nahum Srinivasan CNP as PCP - General (Nurse Practitioner) Pharmacy / Equipment Co. (DME) [id number] [facility] [place] [address] Objective Blood pressure (!) 155/89, pulse 95, temperature 97.6 F (36.4 C), temperature source Oral, height 4' 4.5 , weight 28.7 kg (63 lb 3.2 oz), SpO2 98 %, not currently . Body mass index is 16.12 kg/m . Vitals: PACU Vitals 04/04/19 0917 BP: (!) 155/89 Pulse: Temp: SpO2: Vision and Hearing Screen: No vision concerns Referred to audiology for hearing Assessment: The primary encounter diagnosis was Well adult exam. Diagnoses of HTN, Acquired hypothyroidism, Hyperlipidemia, unspecified hyperlipidemia type, Unexplained weight loss, Screening for malignant neoplasm of breast, Hearing loss, unspecified hearing loss type, unspecified laterality, and Family history of diabetes mellitus were also pertinent to this visit. Plan: During the course of the visit the patient was educated and counseled about appropriate screening and preventive services including: Advice / Referrals: Provide Healthwise patient instructions Handouts Reviewed and discussed with Patient: 5-Year Plan: Health Maintenance Topic Date Due Mammogram 1970 PAP SMEAR 1970 Wellness Visit 09/24/1975 DEPRESSION SCREENING (PHQ9) 06/07/2019 TETANUS EVERY 10 YR 08/03/2024 SEQUENTIAL INFLUENZA VACCINE Addressed Patient Instructions (the written plan) was given to the patient. 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 Advance Directives and Livin g Will 09/22/2021 10:52 AM Summary Purpose Family History No Family History Records FoundNo Family History Records FoundNo Family History Records FoundNo Family History Records FoundNo Family History Records Found Reason for Referral Status Reason Specialty Diagnoses / Procedures Referred By Contact Referred To Contact Authorized Gastroenterology Diagnoses Unexplained weight loss Suraj Addison MD [address] [place] [address] Rudy Sanchez, [address] [facility] [address] [place] [address] Status Reason Specialty Diagnoses / Procedures Referred By Contact Referred To Contact Authorized Service Not Available Internally Audiology Diagnoses Hearing loss, unspecified hearing loss type, unspecified laterality Suraj Addison MD [address] [place] [address] Kamaljit Viera [address] [place] [address] Status Reason Specialty Diagnoses / Procedures Referred By Contact Referred To Contact Authorized Service Not Available Internally Nephrology Diagnoses Hypertension, benign Suraj Addison MD [address] [place] [address] Marilee Song MD [address] [facility] [address] [place] [address] Status Reason Specialty Diagnoses / Procedures Referred By Contact Referred To Contact Pending Review Radiology Diagnoses Screening for malignant neoplasm of breast Procedures Mammography Screening Bilateral Suraj Addison MD [address] [place] [address] Specialty Diagnoses / Procedures Referred By Contac t Referred To Contact Radiology / Central Scheduling Diagnoses Encounter for screening for malignant neoplasm of breast, unspecified screening modality Procedures Mammography Screening Roosevelt Bilateral Radha Sierra MD [address] [place] [address] Central Scheduling [address] [place] [address] Referral ID Status Reason Start Date Expiration Date Visits Requested Visits Authorized [id number] Authorized Specialty Services Required/Pat ient's Best Interest 09/22/2021 09/22/2022 1 1 Additional Source Comments Reason for Visit (unrecogniz ed section and content) RENAL US Reason Comments Establish Care needs paperwork fill ed out for mainstream Reason Comments Medicare Wellness Visit Gap Closure (Health Maintenance) mammogr am - adv to schedule. pap - due. wellness - today. flu vaccine - due. Reason Comments Establish Care Reason Comments Medication Refill Reason Comments Breast Cancer New patient consulta tion INFORMATION SOURCE (unrecogn ized section and content) DATE CREATED AUTHOR 04/30/2020 [facility] DATE CREATED AUTHOR AUTHOR'S ORGANIZ ATION 09/27/2021 [facility] DATE CREATED AUTHOR AUTHOR'S ORGANIZ ATION 08/04/2022 [facility] DATE CREATED AUTHOR AUTHOR'S ORGANIZ ATION 08/08/2022 [facility] DATE CREATED AUTHOR AUTHOR'S ORGANIZ ATION 08/21/2022 [facility] Care Teams (unrecognized sec tion and content) 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 Relationship Specialty Start Date End Date Radha Sierra MD [address] [place] [address] PCP - General Family Medicine 09/22/21 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 Relationship Specialty Start Date End Date Radha Sierra MD [address] [place] [id number] PCP - General Family Medicine 09/22/21 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 Relationship Specialty Start Date End Date Radha Sierra MD [address] [place] [address] PCP - General Family Medicine 09/22/21 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 Relationship Specialty Start Date End Date Leonardo Blackburn(Historical), PLATE STACKER HAND PCP - General Primary Care 07/31/22 Janie Toscano [address] [place] [address] [place] [address] BISCUITWARE BRUSHER 07/31/22 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 Relationship Specialty Start Date End Date Radha Sierra MD [address] [place] [address] PCP - General Family Medicine 09/22/21 Source Comments (unrecognize d section and content) In the event this informatio n is protected by the Federal Confidentiality of Alcohol and Drug Abuse Patient Records regulations: The Federal rules restrict any use of the information to criminally investigate or prosecute any alcohol or drug abuse patient.[facility] FOR RECORDS PERTAINING TO PATIENTS WHO ARE OR HAVE BEEN ENROLLED IN A CHEMICAL DEPENDENCY/SUBSTANCEABUSE PROGRAM, SOME INFORMATION MAY BE OMITTED. This clinical summary was aggregated from multiple sources. Caution should be exercised in using it in the provision of clinical care. This summary normalizes information from multiple sources, and as a consequence, information in this document may materially change the coding, format and clinical context of patient data. In addition, data may be omitted in some cases. CLINICAL DECISIONS SHOULD BE BASED ON THE PRIMARY CLINICAL RECORDS. [employer] provides no warranty or guarantee of the accuracy or completeness of information in this document.
[2023-11-05 13:57] LABS: Hematocrit 36.6 % (36.0-48.0); Hemoglobin 12.1 g/dL (12.0-16.0); Mean Corpuscular HGB Conc 33.1 g/dL (29.9-35.2); Mean Corpuscular Hemoglobin 30.7 pg (26.7-34.0); Mean Corpuscular Volume 92.9 fL (81.0-99.0); Mean Platelet Volume 9.3 fL (9.5-13.5); Platelet Count 273 10^3/uL (150-450); Red Blood Count 3.94 10^6/uL (4.20-5.40); Red Cell Distribution Width 13.8 % (11.0-15.0); White Blood Count 7.5 10^3/uL (4.0-11.0)
[2023-11-05 14:42] LABS: Bilirubin Urine NEGATIVE (NEGATIVE); Blood Urine NEGATIVE (NEGATIVE); Clarity Urine CLEAR (CLEAR); Color Urine LT. YELLOW (YELLOW); Glucose Urine UA NEGATIVE (NEGATIVE); Ketones Urine NEGATIVE (NEGATIVE); Leukocyte Esterase Urine NEGATIVE (NEGATIVE); Nitrite Urine NEGATIVE (NEGATIVE); Protein Urine NEGATIVE (NEG/TRACE); Specific Gravity Urine 1.025 (1.005-1.025); Urobilinogen Urine 0.2 EU/dL (0.2-1.0); pH Urine 5.5 (5.0-9.0)
[2023-11-05 15:58] LABS: Creatinine Urine Random 132.61 mg/dL (20.00-300.00)
[2023-11-05 16:05] LABS: Alanine Aminotransferase 19 U/L (14-59); Albumin Globulin Ratio 1.1; Albumin Level 3.9 g/dL (3.4-5.0); Alkaline Phosphatase 127 U/L (46-116); Anion Gap 19.1; Aspartate Amino Transferase 15 U/L (15-37); BUN Creatinine Ratio 19.1; Bilirubin Total 0.2 mg/dL (0.2-1.0); Calcium 9.3 mg/dL (8.5-10.1); Carbon Dioxide 22.6 mmol/L (21.0-32.0); Chloride 104 mmol/L (98-107); Estimated GFR (African America 42 (>=60); Estimated GFR (Non-African Ame 35 (>=60); Globulin 3.7 g/dL; Glucose 167 mg/dL (74-106); Magnesium 1.9 mg/dL (1.8-2.4); Potassium 4.7 mmol/L (3.5-5.1); Sodium 141 mmol/L (136-145); Total Protein 7.6 g/dL (6.4-8.2); Uric Acid 5.9 mg/dL (2.6-6.0)
[2023-11-05 16:21] LABS: Protein Creatinine Ratio Urine 0.09; Total Protein Urine Random 11.4 mg/dL (<=11.9)
[2023-11-06 11:10] LABS: PTH, Intact 53 pg/mL (15-65)
== END 2023-11-05 13:36 | disposition home or self-care (01) ==
PROVIDERS: PCP Nurse Practitioner; Visit Provider Internal Medicine Nephrology
DX: I12.9 Hypertensive chronic kidney disease with stage 1 through stage 4 chronic kidney disease, or unspecified chronic kidney disease (principal); N18.32 Chronic kidney disease, stage 3b; E55.9 Vitamin D deficiency, unspecified; E78.5 Hyperlipidemia, unspecified; E87.6 Hypokalemia
CPT/HCPCS: 36415; 80053; 81003; 82306; 82570; 83735; 83970; 84100; 84156; 84550; 85027

== ENCOUNTER 2024-02-27 15:51 | Outpatient (OUT) | payer MEDICARE, MEDICAID, SELFPAY ==
--- OUTSIDE RECORDS SUMMARY | 2024-02-27 16:16 | XMS_ITS | CCD ---
Author Organization [facility] CliniSynd Care Team Providers Care Pulmonary Nurse Practitioner Name Role Phone Nini Pelletier Unavailable Mildred Caroanupama Unavailable Nahum Reaves Primary Care Provider NAHUM REAVES Attending Unavailable NAHUM REAVES Primary Care Unavailable NAHUM REAVES Attending Unavailable NAHUM REAVES Primary Care Unavailable NAHUM REAVES Attending Unavailable NAHUM REAVES Primary Care Unavailable NAHUM REAVES Attending Unavailable NAHUM REAVES Primary Care Unavailable NAHUM REAVES Attending Unavailable NAHUM REAVES Primary Care Unavailable Nahum Reaves Primary Care Provider Rigo MALIK, [facility] P rovider RADHA SIERRA Primary Care Unavailabl e Rigo MALIK, [facility] Primary Care P rovider LEONARDO LENZ Primary Care Physician [employer]STRU[employer]Y INSTRUCTOR, Leonardo(Historical) Primary Care Provid er Unavailable Janie Toscano Unavailable SHAMMO, LEONARDO Primary Care Unavailable NILL, [...] Christopher R Attending Unavailable Rigo MALIK, Rad[facility] P rovider KADEN GOLDEN Attending Unavailable NILLCHRISTOPHER Referring Unavailable [...] Unavailabl e KARASIK ., DR LIMA Consulting Unavailroge THOMAS, DR SHANI Hernandez Consulting Unavailable Corazon Krishna Unavailable LYNN STARKEY Attending Unavailable [facility] Unavailable LYNN STARKEY Attending Unavailable LYNN STARKEY Referring Unavailable [facility] Unavailable LYNN STARKEY Referring Unavailable [facility] Unavailable DAVID ASKEW Consulting Unavailable MACKENZIE WESTON Admitting Unavailable DAMON JUAREZ Attending Unavailable [facility] Unavailable NANCY PENA Consulting Unavailable Allergies Allergy Classification Reported Allergen(s) Allergy Type Date of Onset Reaction(s) Facility (1 source) No Known Medication Allergies; Translations: [No Known Medication Allergies] Propensity to adverse reactions (disorder) [facility] Repository Medications Current Medications Medication Drug Class(es) [...] OF THE DAY WITH PLAIN WATER amLODIPine 10 mg oral tablet (20 sources) Dihydropyridine Calcium Channel Jae Start: 11-14-19 take 10 mg by mouth once daily Amlodipine Active 10 MG PO Daily November 14, 2023 12:00am Start: 06-20-2022 take 1 tablet by giovana once daily amLODIPine (NORVASC) 10 mg tablet [...] 1 tablet by giovana th once daily amLODIPine (NORVASC) 10 MG tablet [...] Take 10 mg by mouth once daily. cetirizine hydrochloride 10 mg oral tablet (2 sources) Histamine-1 Receptor Antagonist Start: 11-14-19 Cetirizine Active 10 MG PO November 14, 2023 12:00am Forbes 8-Zrn-Ukd-Fish Oil (2 sources) Start: 11-14-19 24 Forbes 8-Pom-Ngs-Fish Oil Active CAP PO November 14, 2023 12:00am simvastatin 20 mg oral tablet (13 sources) HMG-CoA Reductase Inhibitor Start: 04-30-20 End: 03-21-20 take 1 tablet by mouth once daily [...] Drug Class(es) Dates Sig (Normalized) Sig (Original) blood pressure test kit-small Kit (6 sources) [...] mg / lisinopril 20 mg oral tablet (20 sources) Thiazide Diuretic, Angiotensin Converting Enzyme Inhibitor Start: 11-14-2023 End: 02-26-2024 take 1 tablet by mouth once daily Lisinopril-Hydroc hlorothiazide Discontinued 1 TAB PO Daily November 14, 2023 12:00am February 26, 2024 4:08pm Start: 07-03-2022 take 1 tablet by giovana th once daily lisinopril-hydroCHLOROthiazide (PRINZIDE , ZESTORETIC) 20-25 mg per tablet Take 1 [...] Angiotensin Converting Enzyme Inhibitor Start: 9 End: 0 take 1 tablet by mouth once daily [...] daily. 60 tablet 1 07/31/2017 08/14/2017 Discontinued magnesium oxide 400 mg oral tablet (2 sources) Start: 11-14-2023 End: 02-26-2024 take 400 mg by mouth once daily Magnesium Oxide Discontinued 400 MG PO Daily November 14, 2023 12:00am February 26, 2024 4:08pm Metoprolol (2 sources) beta-Adrenergic Jae Start: 11-14-2023 End: 02-26-2024 take 12.5 mg by mouth twice daily Metoprolol Tartrate Discontinued 12.5 MG PO Twice daily November 14, 2023 12:00am February 26, 2024 4:09pm Start: 11-14-2023 take 12.5 mg by mout h twice daily Metoprolol Tartrate Active 12.5 MG PO Twice daily November 14, 2023 12:00am microencapsulated potassium chloride 20 meq extended release oral tablet (17 sources) Start: 07-18-2022 take 1 tablet by mouth once daily at mealtime KLOR-CON M20 20 mEq tablet TAKE 1 TABLET BY MOUTH EVERY DAY WITH FOOD FOR 90 DAYS 0 07/18/2022 Active Start: 03-01-2022 take 1 tablet by giovana th once daily Potassium Chloride (Wap-Erke-Kkp M20) 20 mEq oral tablet, extended release [...] EVERY DAY WITH FOOD FOR 90 DAYS Potassium Chloride (Klor-Con M20) 20 mEq tablet,ER particles/crystals (2 sources) Start: 11-14-19 End: 11-14-19 Potassium Chloride (Klor-Con M20) 20 mEq tablet,ER particles/crystals Discontinued 20 MEQ PO Once November 14, 2023 12:00am November 14, 2023 10:36am spironolactone 25 mg oral tablet (3 sources) Aldosterone Antagonist Start: 11-16-19 End: 02-26-20 take 1 tablet by mouth once daily Spironolactone Discontinued 0 .ROUTE .COMPLEX 90 November 16, 2023 10:51am February 26, 2024 4:08pm TAKE 1 TABLET BY MOUTH EVERY DAY FOR 90 DAYS Start: 11-14-2023 End: 11-16-2023 take 25 mg by mouth once daily Spironolactone Discontinued 25 MG PO Daily November 14, 2023 12:00am November 16, 2023 10:52am Problems Active Problems Problem Classification Problem Date Documented Da te Episodic/Chronic Acute and unspecified renal failure (4 sources) Acute kidney failure, unspecified; Translations: [Acute renal failure syndrome] Onset: 01-20-2024 02-26-2024 Episodic Cancer of breast (7 sources) Intraductal carcinoma in situ of left breast; Translations: [Intraductal carcinoma in situ of breast] Onset: 06-12-2022 Chronic Cardiac dysrhythmias (6 sources) Sinus tachycardia; Translations: [Sinus tachycardia] Onset: 08-12-2015 08-12-2015 Chronic Cardiac dysrhythmias (9 sources) Sinus tachycardia; Translations: [Tachycardia, unspecified] Onset: 08-12-2015 Episodic Chronic kidney disease (6 sources) Chronic kidney disease stage 3B ; Translations: [Chronic kidney disease, stage 3b] 11-13-2023 Chronic Conditions associated with dizziness or vertigo (1 source) Dizziness and giddiness; Translations: [Dizziness and giddiness] Onset: 01-21-2024 Episodic Developmental disorders (11 sources) Intellectual functioning disability [...] [Essential (primary) hypertension] Onset: 09-27-2009 04-27-2014 Chronic Fluid and electrolyte disorders (19 sources) Hypokalemia; Translations: [Hypokalemia] Onset: 10-15-2012 Resolved: 03-08-2022 04-27-2014 Episodic Hypertension with complications and secondary hypertension (7 sources) Hypertensive renal disease; Translations: [Hypertensive chronic kidney disease with stage 1 through stage 4 chronic kidney disease, or unspecified chronic kidney disease] Chronic Nonmalignant breast conditions (5 sources) Atypical ductal hyperplasia of breast; Translations: [Unspecified benign mammary dysplasia of left breast] Onset: 05-25-2022 Episodic Nutritional deficiencies (7 sources) Vitamin D deficiency; Translations: [Vitamin D [...] nutritional; endocrine; and metabolic disorders (2 sources) Hypomagnesemia; Translations: [Hypomagnesemia] 11-13-2023 Chronic Other nutritional; endocrine; and metabolic disorders (2 sources) Hypomagnesemia; Translations: [Disorders of magnesium metabolism] 11-14-2023 Chronic Other nutritional; endocrine; and metabolic disorders (2 [...] malignant neoplasm of breast] Onset: 09-22-2021 Episodic Syncope (1 source) Syncope and collapse; Translations: [Syncope and collapse] Onset: 01-20-2024 Episodic Thyroid disorders (20 sources) Hypothyroidism; Translations: [Acquired hypothyroidism] Onset: 12-10-2009 04-27-2014 Chronic Unclassified (10 sources) Patient encounter status; Translations: [Routine general medical examination at a health care facility] Onset: 06-15-2011 Resolved: 04-04-2019 04-27-2014 Unclassified (3 sources) Intellectual disability; Translations: [Intellectual disability] Onset: 04-27-2014 04-27-2014 Unclassified (1 source) CONTACT W/AND (SUSP) EXPOS COVID-19; Translations: [CONTACT W/AND (SUSP) EXPOS COVID-19] Onset: 04-11-2022 Unclassified (1 source) Medical Screening Onset: 01-20-2024 Unclassified (1 source) EMS Onset: 01-20-2024 Past or Other Problems Problem Classification Problem Date Documented Date Episodic/Chronic Chronic kidney disease (1 source) Chronic kidney disease Genitourinary symptoms and ill-defined conditions (2 sources) [...] Test Name Value Interpretation Reference Range Facility Basic Metab w/rfx MGon 01-22 Anion gap [Moles/Vol] 9 mmol/L Normal 9-16 [facility] Comment on above: Performed By: #### C RP, PE, C4, GLYHGB, CDP, IMMS, MARCELA, C3, CK, ANAX, URI, ANCACP, VD25, CP #### [employer] [address] [place] [id number] Wedding Cake Designer: Lawrence Goff MD Calcium [Mass/Vol] 8.3 mg/dL Low 8.6-10.4 [facility] Comment on above: Performed By: #### C RP, PE, C4, GLYHGB, CDP, IMMS, MARCELA, C3, CK, ANAX, URI, ANCACP, VD25, CP #### [employer] [address] [place] [address] [id number] Wedding Cake Designer: Lawrence Goff MD Chloride [Moles/Vol] 110 mmol/L High 98-107 [facility] Comment on above: Performed By: #### C RP, PE, C4, GLYHGB, CDP, IMMS, MARCELA, C3, CK, ANAX, URI, ANCACP, VD25, CP #### [address] [id number] Wedding [employer] Designer: Lawrence Goff MD CO2 [Moles/Vol] 21 mmol/L Normal 20-31 [facility] Comment on above: Performed By: #### C RP, PE, C4, GLYHGB, CDP, IMMS, MARCELA, C3, CK, ANAX, URI, ANCACP, VD25, CP #### [address] [phone] Wedding Cake Designer: Lawrence Goff MD Creatinine [Mass/Vol] 1.4 mg/dL High 0.50-0.90 [facility] Comment on above: Performed By: #### C RP, PE, C4, GLYHGB, CDP, IMMS, MARCELA, C3, CK, ANAX, URI, ANCACP, VD25, CP #### [address] [id number] Wedding Cake Designer: Lawrence Goff MD GFR/1.73 sq M.predicted among non-blacks MDRD (S/P/Bld) [Vol rate/Area] 44 mL/min/{1.73_m2} Low >60 [facility] Comment on above: Result Comment: These results are not intended for use in patients <18 years of age. eGFR results are calculated without a race factor using the 2020 CKD-EPI equation. Careful clinical correlation is recommended, particularly when comparing to results calculated using previous equations. The CKD-EPI equation is less accurate in patients with extremes of muscle mass, extra-renal metabolism of creatine, excessive creatine ingestion, or following therapy that affects renal tubular secretion. Performed By: #### C RP, PE, C4, GLYHGB, CDP, IMMS, MARCELA, C3, CK, ANAX, URI, ANCACP, VD25, CP #### [address] [phone] Wedding Cake Designer: Lawrence Goff MD Glucose [Mass/Vol] 145 mg/dL High 74-99 [facility] Comment on above: Performed By: #### C RP, PE, C4, GLYHGB, CDP, IMMS, MARCELA, C3, CK, ANAX, URI, ANCACP, VD25, CP #### [address] [phone] Wedding Cake Designer: Lawrence Goff MD Potassium [Moles/Vol] 4.6 mmol/L Normal 3.7-5.3 [facility] Comment on above: Result Comment: SPEC IMEN SLIGHTLY HEMOLYZED, RESULTS MAY BE ADVERSELY AFFECTED. Performed By: #### C RP, PE, C4, GLYHGB, CDP, IMMS, MARCELA, C3, CK, ANAX, URI, ANCACP, VD25, CP #### [address] [id number] Wedding [employer] Designer: Lawrence Goff MD Sodium [Moles/Vol] 140 mmol/L Normal 136-145 [facility] Comment on above: Performed By: #### C RP, PE, C4, GLYHGB, CDP, IMMS, MARCELA, C3, CK, ANAX, URI, ANCACP, VD25, CP #### [address] [phone] Wedding Cake Designer: Lawernce Goff MD Urea nitrogen [Mass/Vol] 26 mg/dL High 6-20 [facility] Comment on above: Performed By: #### C RP, PE, C4, GLYHGB, CDP, IMMS, MARCELA, C3, CK, ANAX, URI, ANCACP, VD25, CP #### [address] [phone] Wedding [employer] Designer: Lawrence Goff MD Basic Metab w/rfx MGon 01-21 Anion gap [Moles/Vol] 7 mmol/L Low 9-[address] [facility] Comment on above: Performed By: #### C RP, PE, C4, GLYHGB, CDP, IMMS, MARCELA, C3, CK, ANAX, URI, ANCACP, VD25, CP #### [address] [phone] Wedding Cake Designer: Lawrence Goff MD Calcium [Mass/Vol] 7.8 mg/dL Low 8.6-10.4 [facility] Comment on above: Performed By: #### C RP, PE, C4, GLYHGB, CDP, IMMS, MARCELA, C3, CK, ANAX, URI, ANCACP, VD25, CP #### [place] [phone] Wedding Cake Designer: Lawrence Goff MD Chloride [Moles/Vol] 113 mmol/L High 98-107 [facility] Comment on above: Performed By: #### C RP, PE, C4, GLYHGB, CDP, IMMS, MARCELA, C3, CK, ANAX, URI, ANCACP, VD25, CP #### [place] [phone] Wedding Cake Designer: Lawrence Goff MD CO2 [Moles/Vol] 25 mmol/L Normal 20-31 [facility] Comment on above: Performed By: #### C RP, PE, C4, GLYHGB, CDP, IMMS, MARCELA, C3, CK, ANAX, URI, ANCACP, VD25, CP #### [facility] [address] [place], [place] [phone] Wedding Cake Designer: Lawrence Goff MD Creatinine [Mass/Vol] 1.8 mg/dL High 0.50-0.90 [facility] Comment on above: Performed By: #### C RP, PE, C4, GLYHGB, CDP, IMMS, MARCELA, C3, CK, ANAX, URI, ANCACP, VD25, CP #### [place] [phone] [employer] Designer: Lawrence Goff MD GFR/1.73 sq M.predicted among non-blacks MDRD (S/P/Bld) [Vol rate/Area] 34 mL/min/{1.73_m2} Low >60 [facility] Comment on above: Result Comment: These results are not intended for use in patients <18 years of age. eGFR results are calculated without a race factor using the 2020 CKD-EPI equation. Careful clinical correlation is recommended, particularly when comparing to results calculated using previous equations. The CKD-EPI equation is less accurate in patients with extremes of muscle mass, extra-renal metabolism of creatine, excessive creatine ingestion, or following therapy that affects renal tubular secretion. Performed By: #### C RP, PE, C4, GLYHGB, CDP, IMMS, MARCELA, C3, CK, ANAX, URI, ANCACP, VD25, CP #### [place] [id number] [employer] Designer: Lawrence Goff MD Glucose [Mass/Vol] 146 mg/dL High 74-99 [facility] Comment on above: Performed By: #### C RP, PE, C4, GLYHGB, CDP, IMMS, MARCELA, C3, CK, ANAX, URI, ANCACP, VD25, CP #### [place] [phone] Wedding [employer] Designer: Lawrence Goff MD Potassium [Moles/Vol] 5.3 mmol/L Normal 3.7-5.3 [facility] Comment on above: Performed By: #### C RP, PE, C4, GLYHGB, CDP, IMMS, MARCELA, C3, CK, ANAX, URI, ANCACP, VD25, CP #### [place] [phone] Wedding Cake Designer: Lawrence Goff MD Sodium [Moles/Vol] 145 mmol/L Normal 136-145 [facility] Comment on above: Performed By: #### C RP, PE, C4, GLYHGB, CDP, IMMS, MARCELA, C3, CK, ANAX, URI, ANCACP, VD25, CP #### [address] [phone] Wedding [employer] Designer: Lawrence Goff MD Urea nitrogen [Mass/Vol] 36 mg/dL High 6-20 [facility] Comment on above: Performed By: #### C RP, PE, C4, GLYHGB, CDP, IMMS, MARCELA, C3, CK, ANAX, URI, ANCACP, VD25, CP #### [address] [id number] [employer] Designer: Lawrence Goff MD Anion gap [Moles/Vol] 8 mmol/L Low 9-16 [facility] Comment on above: Performed By: #### C RP, PE, C4, GLYHGB, CDP, IMMS, MARCELA, C3, CK, ANAX, URI, ANCACP, VD25, CP #### [address] [phone] Wedding Cake Designer: Lawrence Goff MD Calcium [Mass/Vol] 7.8 mg/dL Low 8.6-10.4 [facility] Comment on above: Performed By: #### C RP, PE, C4, GLYHGB, CDP, IMMS, MARCELA, C3, CK, ANAX, URI, ANCACP, VD25, CP #### [address] [id number] Wedding [employer] Designer: Lawrence Goff MD Chloride [Moles/Vol] 112 mmol/L High 98-107 [facility] Comment on above: Performed By: #### C RP, PE, C4, GLYHGB, CDP, IMMS, MARCELA, C3, CK, ANAX, URI, ANCACP, VD25, CP #### [address] [phone] Wedding Cake Designer: Lawrence Goff MD CO2 [Moles/Vol] 25 mmol/L Normal 20-31 [facility] Comment on above: Performed By: #### C RP, PE, C4, GLYHGB, CDP, IMMS, MARCELA, C3, CK, ANAX, URI, ANCACP, VD25, CP #### [address] [phone] Wedding Cake Designer: Lawrence Goff MD Creatinine [Mass/Vol] 1.8 mg/dL High 0.50-0.90 [facility] Comment on above: Performed By: #### C RP, PE, C4, GLYHGB, CDP, IMMS, MARCELA, C3, CK, ANAX, URI, ANCACP, VD25, CP #### [address] [id number] Wedding Cake Designer: Lawrence Goff MD GFR/1.73 sq M.predicted among non-blacks MDRD (S/P/Bld) [Vol rate/Area] 35 mL/min/{1.73_m2} Low >60 [facility] Comment on above: Result Comment: These results are not intended for use in patients <18 years of age. eGFR results are calculated without a race factor using the 2020 CKD-EPI equation. Careful clinical correlation is recommended, particularly when comparing to results calculated using previous equations. The CKD-EPI equation is less accurate in patients with extremes of muscle mass, extra-renal metabolism of creatine, excessive creatine ingestion, or following therapy that affects renal tubular secretion. Performed By: #### C RP, PE, C4, GLYHGB, CDP, IMMS, MARCELA, C3, CK, ANAX, URI, ANCACP, VD25, CP #### [address] [phone] Wedding [employer] Designer: Lawrence Goff MD Glucose [Mass/Vol] 96 mg/dL Normal 74-99 [facility] Comment on above: Performed By: #### C RP, PE, C4, GLYHGB, CDP, IMMS, MARCELA, C3, CK, ANAX, URI, ANCACP, VD25, CP #### [address] [phone] Wedding Cake Designer: Lawrence Goff MD Potassium [Moles/Vol] 4.9 mmol/L Normal 3.7-5.3 [facility] Comment on above: Performed By: #### C RP, PE, C4, GLYHGB, CDP, IMMS, MARCELA, C3, CK, ANAX, URI, ANCACP, VD25, CP #### [address] [phone] Wedding Cake Designer: Lawrence Goff MD Sodium [Moles/Vol] 145 mmol/L Normal 136-145 [facility] Comment on above: Performed By: #### C RP, PE, C4, GLYHGB, CDP, IMMS, MARCELA, C3, CK, ANAX, URI, ANCACP, VD25, CP #### [address] [phone] Wedding Cake Designer: Lawrence Goff MD Urea nitrogen [Mass/Vol] 38 mg/dL High 6-20 [facility] Comment on above: Performed By: #### C RP, PE, C4, GLYHGB, CDP, IMMS, MARCELA, C3, CK, ANAX, URI, ANCACP, VD25, CP #### [address] [id number] Wedding Cake Designer: Lawrence Goff MD Prot. Electroph, Blon 2023 Pathologist Review: ELECTRONICALLY SHAWN MOSS M.D. Normal [facility] Comment on above: Performed By: #### C RP, PE, C4, GLYHGB, CDP, IMMS, MARCELA, C3, CK, ANAX, URI, ANCACP, VD25, CP #### [address] [phone] Wedding Cake Designer: Lawrence Goff MD Prot. Elect-Interp NORMAL ELECTROPHORET IC PATTERN Normal [facility] Comment on above: Performed By: #### C RP, PE, C4, GLYHGB, CDP, IMMS, MARCELA, C3, CK, ANAX, URI, ANCACP, VD25, CP #### [address] [id number] Wedding Cake Designer: Lawrence Goff MD MARC Screen w/reflexon 2023 MARC Screen Negative Normal NEG [facility] Comment on above: Performed By: #### C RP, PE, C4, GLYHGB, CDP, IMMS, MARCELA, C3, CK, ANAX, URI, ANCACP, VD25, CP #### [place] [phone] Wedding [employer] Designer: Lawrence Goff MD Anti-dsDNA <0.5 Normal <10.0 [facility] Comment on above: Result Comment: Reference Range: <10.0 Negative 10.0-15.0 Equivocal >15.0 Positive Performed By: #### C RP, PE, C4, GLYHGB, CDP, IMMS, MARCELA, C3, CK, ANAX, URI, ANCACP, VD25, CP #### [place] [phone] Wedding Cake Designer: Lawrence Goff MD TEREZA Screen 0.4 U/mL Normal <0.7 [facility] Comment on above: Result Comment: Reference Range: <0.7 Negative 0.7-1.0 Equivocal >1.0 Positive TEREZA Screen includes U1RNP,RNP70,Sm,Ro(SS-A),La(SS-B),CENP,Scl-70,Orin-1 Performed By: #### C RP, PE, C4, GLYHGB, CDP, IMMS, MARCELA, C3, CK, ANAX, URI, ANCACP, VD25, CP #### [address] [id number] Wedding Cake Designer: Lawrence Goff MD Basic Metab w/rfx MGon 01-20 Anion gap [Moles/Vol] 12 mmol/L Normal 9-16 [facility] Comment on above: Performed By: #### C RP, PE, C4, GLYHGB, CDP, IMMS, MARCELA, C3, CK, ANAX, URI, ANCACP, VD25, CP #### [address] [id number] Wedding Cake Designer: Lawrence Goff MD Calcium [Mass/Vol] 8.4 mg/dL Low 8.6-10.4 [facility] Comment on above: Performed By: #### C RP, PE, C4, GLYHGB, CDP, IMMS, MARCELA, C3, CK, ANAX, URI, ANCACP, VD25, CP #### [address] [id number] Wedding Cake Designer: Lawrence Goff MD Chloride [Moles/Vol] 101 mmol/L Normal 98-107 [facility] Comment on above: Performed By: #### C RP, PE, C4, GLYHGB, CDP, IMMS, MARCELA, C3, CK, ANAX, URI, ANCACP, VD25, CP #### [address] [phone] Wedding Cake Designer: Lawrence Goff MD CO2 [Moles/Vol] 32 mmol/L High 20-31 [facility] Comment on above: Performed By: #### C RP, PE, C4, GLYHGB, CDP, IMMS, MARCELA, C3, CK, ANAX, URI, ANCACP, VD25, CP #### [facility] [address] [place] [address] [phone] Wedding Cake Designer: Lawrence Goff MD Creatinine [Mass/Vol] 2.4 mg/dL High 0.50-0.90 [facility] Comment on above: Performed By: #### C RP, PE, C4, GLYHGB, CDP, IMMS, MARCELA, C3, CK, ANAX, URI, ANCACP, VD25, CP #### [address] [phone] Wedding [employer] Designer: Lawrence Goff MD GFR/1.73 sq M.predicted among non-blacks MDRD (S/P/Bld) [Vol rate/Area] 24 mL/min/{1.73_m2} Low >60 [facility] Comment on above: Result Comment: These results are not intended for use in patients <18 years of age. eGFR results are calculated without a race factor using the 2020 CKD-EPI equation. Careful clinical correlation is recommended, particularly when comparing to results calculated using previous equations. The CKD-EPI equation is less accurate in patients with extremes of muscle mass, extra-renal metabolism of creatine, excessive creatine ingestion, or following therapy that affects renal tubular secretion. Performed By: #### C RP, PE, C4, GLYHGB, CDP, IMMS, MARCELA, C3, CK, ANAX, URI, ANCACP, VD25, CP #### [place] [phone] Wedding Cake Designer: Lawrence Goff MD Glucose [Mass/Vol] 140 mg/dL High 74-99 [facility] Comment on above: Performed By: #### C RP, PE, C4, GLYHGB, CDP, IMMS, MARCELA, C3, CK, ANAX, URI, ANCACP, VD25, CP #### [place] [phone] Wedding Cake Designer: Lawrence Goff MD Potassium [Moles/Vol] 4.5 mmol/L Normal 3.7-5.3 [facility] Comment on above: Performed By: #### C RP, PE, C4, GLYHGB, CDP, IMMS, MARCELA, C3, CK, ANAX, URI, ANCACP, VD25, CP #### [address] [id number] Wedding Cake Designer: Lawrence Goff MD Sodium [Moles/Vol] 145 mmol/L Normal 136-145 [facility] Comment on above: Performed By: #### C RP, PE, C4, GLYHGB, CDP, IMMS, MARCELA, C3, CK, ANAX, URI, ANCACP, VD25, CP #### [address] [phone] Wedding Cake Designer: Lawrence Goff MD Urea nitrogen [Mass/Vol] 61 mg/dL High 6-20 [facility] Comment on above: Performed By: #### C RP, PE, C4, GLYHGB, CDP, IMMS, MARCELA, C3, CK, ANAX, URI, ANCACP, VD25, CP #### [address] [phone] Wedding [employer] Designer: Lawrence Goff MD Anion gap [Moles/Vol] 12 mmol/L Normal 9-16 [facility] Comment on above: Performed By: #### C RP, PE, C4, GLYHGB, CDP, IMMS, MARCELA, C3, CK, ANAX, URI, ANCACP, VD25, CP #### [address] [id number] Wedding Cake Designer: Lawrence Goff MD Calcium [Mass/Vol] 8.7 mg/dL Normal 8.6-10.4 [facility] [employer] Comment on above: Performed By: #### C RP, PE, C4, GLYHGB, CDP, IMMS, MARCELA, C3, CK, ANAX, URI, ANCACP, VD25, CP #### [address] [id number] [employer]er: Lawrence Goff MD Chloride [Moles/Vol] 100 mmol/L Normal 98-107 [facility] Comment on above: Performed By: #### C RP, PE, C4, GLYHGB, CDP, IMMS, MARCELA, C3, CK, ANAX, URI, ANCACP, VD25, CP #### [address] [id number] [employer]: Lawrence Goff MD CO2 [Moles/Vol] 32 mmol/L High 20-31 [facility] Comment on above: Performed By: #### C RP, PE, C4, GLYHGB, CDP, IMMS, MARCELA, C3, CK, ANAX, URI, ANCACP, VD25, CP #### [address] [id number] [employer]: Lawrence Goff MD Creatinine [Mass/Vol] 2.6 mg/dL High 0.50-0.90 [facility] Comment on above: Performed By: #### C RP, PE, C4, GLYHGB, CDP, IMMS, MARCELA, C3, CK, ANAX, URI, ANCACP, VD25, CP #### [address] [phone] [employer]: Lawrence Goff MD GFR/1.73 sq M.predicted among non-blacks MDRD (S/P/Bld) [Vol rate/Area] 22 mL/min/{1.73_m2} Low >60 [facility] Comment on above: Result Comment: These results are not intended for use in patients <18 years of age. eGFR results are calculated without a race factor using the 2020 CKD-EPI equation. Careful clinical correlation is recommended, particularly when comparing to results calculated using previous equations. The CKD-EPI equation is less accurate in patients with extremes of muscle mass, extra-renal metabolism of creatine, excessive creatine ingestion, or following therapy that affects renal tubular secretion. Performed By: #### C RP, PE, C4, GLYHGB, CDP, IMMS, MARCELA, C3, CK, ANAX, URI, ANCACP, VD25, CP #### [address] [id number] [employer]: Lawrence Goff MD Glucose [Mass/Vol] 178 mg/dL High 74-99 [facility] Comment on above: Performed By: #### C RP, PE, C4, GLYHGB, CDP, IMMS, MARCELA, C3, CK, ANAX, URI, ANCACP, VD25, CP #### [address], [place] [id number] [employer]er: Lawrence Goff MD Potassium [Moles/Vol] 3.6 mmol/L Low 3.7-5.3 [facility] Comment on above: Performed By: #### C RP, PE, C4, GLYHGB, CDP, IMMS, MARCELA, C3, CK, ANAX, URI, ANCACP, VD25, CP #### [address] [id number] [employer]: Lawrence Goff MD Sodium [Moles/Vol] 144 mmol/L Normal 136-145 [facility] Comment on above: Performed By: #### C RP, PE, C4, GLYHGB, CDP, IMMS, MARCELA, C3, CK, ANAX, URI, ANCACP, VD25, CP #### [place] [id number] [employer]er: Lawrence Goff MD Urea nitrogen [Mass/Vol] 65 mg/dL High 6-20 [facility] Comment on above: Performed By: #### C RP, PE, C4, GLYHGB, CDP, IMMS, MARCELA, C3, CK, ANAX, URI, ANCACP, VD25, CP #### [address] [id number] [employer]: Lawrence Goff MD Anion gap [Moles/Vol] 16 mmol/L Normal 9-16 [facility] Comment on above: Performed By: #### C RP, PE, C4, GLYHGB, CDP, IMMS, MARCELA, C3, CK, ANAX, URI, ANCACP, VD25, CP #### [place] [id number] [employer]: Lawrence Goff MD Calcium [Mass/Vol] 9.7 mg/dL Normal 8.6-10.4 [facility] Comment on above: Performed By: #### C RP, PE, C4, GLYHGB, CDP, IMMS, MARCELA, C3, CK, ANAX, URI, ANCACP, VD25, CP #### [address] [id number] [employer]er: Lawrence Goff MD Chloride [Moles/Vol] 104 mmol/L Normal 98-107 [facility] Comment on above: Performed By: #### C RP, PE, C4, GLYHGB, CDP, IMMS, MARCELA, C3, CK, ANAX, URI, ANCACP, VD25, CP #### [address] [phone] [employer]er: Lawrence Goff MD CO2 [Moles/Vol] 22 mmol/L Normal 20-31 [facility] Comment on above: Performed By: #### C RP, PE, C4, GLYHGB, CDP, IMMS, MARCELA, C3, CK, ANAX, URI, ANCACP, VD25, CP #### [address] [id number] [employer]er: Lawrence Goff MD Creatinine [Mass/Vol] 2.4 mg/dL High 0.50-0.90 [facility] Comment on above: Performed By: #### C RP, PE, C4, GLYHGB, CDP, IMMS, MARCELA, C3, CK, ANAX, URI, ANCACP, VD25, CP #### [address] [phone] [employer]er: Lawrence Goff MD GFR/1.73 sq M.predicted among non-blacks MDRD (S/P/Bld) [Vol rate/Area] 24 mL/min/{1.73_m2} Low >60 [facility] Comment on above: Result Comment: These results are not intended for use in patients <18 years of age. eGFR results are calculated without a race factor using the 2020 CKD-EPI equation. Careful clinical correlation is recommended, particularly when comparing to results calculated using previous equations. The CKD-EPI equation is less accurate in patients with extremes of muscle mass, extra-renal metabolism of creatine, excessive creatine ingestion, or following therapy that affects renal tubular secretion. Performed By: #### C RP, PE, C4, GLYHGB, CDP, IMMS, MARCELA, C3, CK, ANAX, URI, ANCACP, VD25, CP #### [address] [id number] [employer]: Lawrence Goff MD Glucose [Mass/Vol] 107 mg/dL High 74-99 [facility] Comment on above: Performed By: #### C RP, PE, C4, GLYHGB, CDP, IMMS, MARCELA, C3, CK, ANAX, URI, ANCACP, VD25, CP #### [address] [phone] [employer]er: Lawrence Goff MD Potassium [Moles/Vol] 4.2 mmol/L Normal 3.7-5.3 [facility] Comment on above: Performed By: #### C RP, PE, C4, GLYHGB, CDP, IMMS, MARCELA, C3, CK, ANAX, URI, ANCACP, VD25, CP #### [address] [id number] [employer]er: Lawrence Goff MD Sodium [Moles/Vol] 142 mmol/L Normal 136-145 [facility] Comment on above: Performed By: #### C RP, PE, C4, GLYHGB, CDP, IMMS, MARCELA, C3, CK, ANAX, URI, ANCACP, VD25, CP #### [address] [id number] [employer]: Lawrence Goff MD Urea nitrogen [Mass/Vol] 68 mg/dL High 6-20 [facility] Comment on above: Performed By: #### C RP, PE, C4, GLYHGB, CDP, IMMS, MARCELA, C3, CK, ANAX, URI, ANCACP, VD25, CP #### [address] [phone] [employer]er: Lawrence Goff MD Eosinophils, Urineon 024 Eosinophils, Urine None Seen Normal NSN [facility] Comment on above: Performed By: #### C RP, PE, C4, GLYHGB, CDP, IMMS, MARCELA, C3, CK, ANAX, URI, ANCACP, VD25, CP #### [address] [id number] [employer]er: Larwence Goff MD Hemoglobin A1Con 01-21-2024 Glucose [Mass/Vol] 137 mg/dL Normal [facility] Comment on above: Result Comment: The ADA and AACC recommend providing the estimated average glucose result to permit better patient understanding of their HBA1c result. Performed By: #### C RP, PE, C4, GLYHGB, CDP, IMMS, MARCELA, C3, CK, ANAX, URI, ANCACP, VD25, CP #### [address] [phone] [employer]er: Lawrence Goff MD HbA1c (Bld) [Mass fraction] 6.4 % High 4.0-6.0 [facility] Comment on above: Performed By: #### C RP, PE, C4, GLYHGB, CDP, IMMS, MARCELA, C3, CK, ANAX, URI, ANCACP, VD25, CP #### [address] [phone] [employer]er: Lawrence Goff MD Lipid Profileon 01-21-2024 Cholesterol [Mass/Vol] 163 mg/dL Normal 0-199 [facility] Comment on above: Result Comment: Cholesterol Guidelines: <200 Desirable 200-240 Borderline >240 Undesirable Performed By: #### C RP, PE, C4, GLYHGB, CDP, IMMS, MARCELA, C3, CK, ANAX, URI, ANCACP, VD25, CP #### [address] [id number] [employer]er: Lawrence Goff MD Cholesterol in HDL [Mass/Vol] 47 mg/dL Normal >40 [facility] Comment on above: Result Comment: HDL Guidelines: <40 Undesirable 40-59 Borderline >59 Desirable Performed By: #### C RP, PE, C4, GLYHGB, CDP, IMMS, MARCELA, C3, CK, ANAX, URI, ANCACP, VD25, CP #### [address] [id number] [employer]er: Lawrence Goff MD Cholesterol in LDL [Mass/Vol] 102 mg/dL High 0-100 [facility] Comment on above: Result Comment: LDL Guidelines: <100 Desirable 100-129 Near to/above Desirable 130-159 Borderline >159 Undesirable Direct (measured) LDL and calculated LDL are not interchangeable tests. Performed By: #### C RP, PE, C4, GLYHGB, CDP, IMMS, MARCELA, C3, CK, ANAX, URI, ANCACP, VD25, CP #### [address] [id number] [employer]: Lawrence Goff MD Cholesterol in VLDL [Mass/Vol] 14 mg/dL Normal [facility] Comment on above: Performed By: #### C RP, PE, C4, GLYHGB, CDP, IMMS, MARCELA, C3, CK, ANAX, URI, ANCACP, VD25, CP #### [address] [id number] [employer]er: Lawrence Goff MD Cholesterol.total/Cho lesterol in HDL [Mass ratio] 3.0 {ratio} Normal [facility] Comment on above: Performed By: #### C RP, PE, C4, GLYHGB, CDP, IMMS, MARCELA, C3, CK, ANAX, URI, ANCACP, VD25, CP #### [address] [id number] [employer]: Lawrence Goff MD Triglyceride [Mass/Vol] 71 mg/dL Normal <150 [facility] Comment on above: Result Comment: Triglyceride Guidelines: <150 Desirable 150-199 Borderline 200-499 High >499 Very high Based on AHA Guidelines for fasting triglyceride, February 2012. Performed By: #### C RP, PE, C4, GLYHGB, CDP, IMMS, MARCELA, C3, CK, ANAX, URI, ANCACP, VD25, CP #### [address] [phone] [employer]: Lawrence Goff MD Neutrophil Cytopl Abon 01-20 MPO-ANCA 0.4 AU/mL Normal 0.0-3.5 [facility] Comment on above: Result Comment: Reference Range: <3.5 Negative 3.5-5.0 Equivocal >5.0 Positive Performed By: #### C RP, PE, C4, GLYHGB, CDP, IMMS, MARCELA, C3, CK, ANAX, URI, ANCACP, VD25, CP #### [address] [id number] [employer]er: Lawrence Goff MD PR3-ANCA 0.8 AU/mL Normal 0.0-2.0 [facility] Comment on above: Result Comment: Reference Range: <2.0 Negative 2.0-3.0 Equivocal >3.0 Positive Performed By: #### C RP, PE, C4, GLYHGB, CDP, IMMS, MARCELA, C3, CK, ANAX, URI, ANCACP, VD25, CP #### [address] [id number] [employer]: Lawrence Goff MD Prot. Electroph, Blon 2023 Albumin [Mass/Vol] 4.2 g/dL Normal 3.2-5.2 [facility] Comment on above: Performed By: #### C RP, PE, C4, GLYHGB, CDP, IMMS, MARCELA, C3, CK, ANAX, URI, ANCACP, VD25, CP #### [address] [id number] [employer]er: Lawrence Goff MD Albumin, % 60 % Normal 45-65 [facility] Comment on above: Performed By: #### C RP, PE, C4, GLYHGB, CDP, IMMS, MARCELA, C3, CK, ANAX, URI, ANCACP, VD25, CP #### [address] [id number] [employer]: Lawrence Goff MD Jwdmb-6-hmivlrmbm 0.3 g/dL Normal 0.1-0.4 [facility] Comment on above: Performed By: #### C RP, PE, C4, GLYHGB, CDP, IMMS, MARCELA, C3, CK, ANAX, URI, ANCACP, VD25, CP #### [address] [id number] [employer]: Lawrence Goff MD Emylc-8-sxgavclab,% 5 % Normal 3-6 [facility] Comment on above: Performed By: #### C RP, PE, C4, GLYHGB, CDP, IMMS, MARCELA, C3, CK, ANAX, URI, ANCACP, VD25, CP #### [address] [id number] [employer]er: Lawrence Goff MD Zscpb-8-cjnjieozc 0.7 g/dL Normal 0.5-0.9 [facility] Comment on above: Performed By: #### C RP, PE, C4, GLYHGB, CDP, IMMS, MARCELA, C3, CK, ANAX, URI, ANCACP, VD25, CP #### [address] [id number] [employer]: Lawrence Goff MD Couzv-6-xaxzobrqm,% 10 % Normal 6-13 [facility] Comment on above: Performed By: #### C RP, PE, C4, GLYHGB, CDP, IMMS, MARCELA, C3, CK, ANAX, URI, ANCACP, VD25, CP #### [address] [id number] [employer]: Lawrence Goff MD Beta-globulins 0.9 g/dL Normal 0.5-1.1 [facility] Comment on above: Performed By: #### C RP, PE, C4, GLYHGB, CDP, IMMS, MARCELA, C3, CK, ANAX, URI, ANCACP, VD25, CP #### [address] [phone] [employer]: Lawrence Goff MD Beta-globulins,% 12 % Normal 11-19 [facility] Comment on above: Performed By: #### C RP, PE, C4, GLYHGB, CDP, IMMS, MARCELA, C3, CK, ANAX, URI, ANCACP, VD25, CP #### [address] [phone] [employer]: Lawrence Goff MD Gamma-globulins 0.9 g/dL Normal 0.5-1.5 [facility] Comment on above: Performed By: #### C RP, PE, C4, GLYHGB, CDP, IMMS, MARCELA, C3, CK, ANAX, URI, ANCACP, VD25, CP #### [address] [id number] [employer]: Lawrence Goff MD Gamma-globulins,% 13 % Normal 9-20 [facility] Comment on above: Performed By: #### C RP, PE, C4, GLYHGB, CDP, IMMS, MARCELA, C3, CK, ANAX, URI, ANCACP, VD25, CP #### [address] [id number] [employer]: Lawrence Goff MD Total Prot. Sum 7.0 g/dL Normal 6.3-8.2 [facility] Comment on above: Performed By: #### C RP, PE, C4, GLYHGB, CDP, IMMS, MARCELA, C3, CK, ANAX, URI, ANCACP, VD25, CP #### [address] [id number] [employer]er: Lawrence Goff MD Total Prot. Sum,% 100 % Normal 98-102 [facility] Comment on above: Performed By: #### C RP, PE, C4, GLYHGB, CDP, IMMS, MARCELA, C3, CK, ANAX, URI, ANCACP, VD25, CP #### [address] [id number] [employer] Designer: Lawrence Goff MD Protein [Mass/Vol] 6.9 g/dL Normal 6.6-8.7 [facility] Comment on above: Performed By: #### C RP, PE, C4, GLYHGB, CDP, IMMS, MARCELA, C3, CK, ANAX, URI, ANCACP, VD25, CP #### [address] [id number] [employer]er: Lawrence Goff MD Protein,Tot,[place] [employer] 2023 Creatinine [Mass/Vol] 55.8 mg/dL Normal 28.0-217.0 [facility] Comment on above: Performed By: #### C RP, PE, C4, GLYHGB, CDP, IMMS, MARCELA, C3, CK, ANAX, URI, ANCACP, VD25, CP #### [address] [id number] [employer]er: Lawrence Goff MD Tot Prot. Conc. 8 mg/dL Normal [facility] Comment on above: Result Comment: No n ormal range established. Performed By: #### C RP, PE, C4, GLYHGB, CDP, IMMS, MARCELA, C3, CK, ANAX, URI, ANCACP, VD25, CP #### [address] [place] [id number] [employer]: Lawrence Goff MD TP/Cre Ratio 0.14 Normal [facility] Comment on above: Performed By: #### C RP, PE, C4, GLYHGB, CDP, IMMS, MARCELA, C3, CK, ANAX, URI, ANCACP, VD25, CP #### [address] [id number] [employer]er: Lawrence Goff MD TSH w/reflex to FT4on 2023 Thyroid Stim. Horm. 2.03 uIU/mL Normal 0.27-4.20 [facility] Comment on above: Performed By: #### C RP, PE, C4, GLYHGB, CDP, IMMS, MARCELA, C3, CK, ANAX, URI, ANCACP, VD25, CP #### [address] [id number] [employer]: Lawrence Goff MD US RETROPERITONEAL LIMITEDon 01-21-2024 US RETROPERITONEAL LIMITED EXAMINATION: ULTRASOUND OF THE KIDNEYS 01/20/2024 10:07 pm COMPARISON: None. HISTORY: ORDERING SYSTEM PROVIDED HISTORY: osmany TECHNOLOGIST PROVIDED HISTORY: Bilateral Renal Ultrasound osmany FINDINGS: The right kidney measures 8.6 cm in length and the left kidney measures 8.6 cm in length. Kidneys demonstrate increased echogenicity, compatible with medical renal disease. No hydronephrosis or intrarenal stones. Benign cysts measure up to 9 mm on the right and 5 mm on the left. IMPRESSION: 1. No hydronephrosis. 2. Increased echogenicity of the kidneys, compatible with medical renal disease. Interpreted by: Nancy Medina MD Signed by: Nancy Medina MD 01/21/24 Final result Normal [facility] C-Reactive Proteinon 024 CRP [Mass/Vol] mg/L Normal 0.0-5.0 [facility] Comment on above: Performed By: #### C RP, PE, C4, GLYHGB, CDP, IMMS, MARCELA, C3, CK, ANAX, URI, ANCACP, VD25, CP #### [address] [id number] [employer]er: Lawrence Goff MD C3on 01-20-2024 C3 133 mg/dL Normal 90-180 [facility] Comment on above: Performed By: #### C RP, PE, C4, GLYHGB, CDP, IMMS, MARCELA, C3, CK, ANAX, URI, ANCACP, VD25, CP #### [address] [phone] [employer]: Lawrence Goff MD C4on 01-20-2024 C4 29 mg/dL Normal 10-40 [facility] Comment on above: Performed By: #### C RP, PE, C4, GLYHGB, CDP, IMMS, MARCELA, C3, CK, ANAX, URI, ANCACP, VD25, CP #### [address] [id number] [employer]er: Lawrence Goff MD CBC AND AUTO DIFFon 01-20-20 24 ABSOLUTE BASOPHIL 0.0 X10E9/L Normal 0.0-0.2 [facility] Comment on above: Performed By: #### Ramila CAIN, 74744-5, CMP, , 20502-5 #### [facility] ([id number]) [address] [place] [address] 29038 ABSOLUTE NEUTROPHIL 9.5 X10E9/L High 1.5-6.6 [facility] Comment on above: Performed By: #### C BCA, 99378-3, CMP, , 90246-0 #### [facility] ([id number]) [address] [place] [address] 57939 Basophils/100 WBC (Bld) 0.2 % Normal [facility] Comment on above: Performed By: #### C BCA, 75273-9, CMP, , 99048-0 #### [facility] ([id number]) [address] [place] [address] 17806 Eosinophils (Bld) [#/Vol] 0.0 10*3/uL Normal 0.0-0.4 [facility] Comment on above: Performed By: #### Ramila CAIN, 54513-6, CMP, 09149-2, 27207-3 #### [facility] ([id number]) [address] [place] [address] 43311 Eosinophils/100 WBC (Bld) 0.2 % Normal [facility] Comment on above: Performed By: #### Ramila CAIN, 18771-3, CMP, , 88637-3 #### [facility] ([id number]) [address] [place] [address] 10979 Erythrocyte distribution width (RBC) [Ratio] 15.8 % High 11.5-15.0 [facility] Comment on above: Performed By: #### Ramila CAIN, 69043-0, CMP, , 52948-6 #### [facility] ([id number]) [address] [place] [address] 78768 Hematocrit (Bld) [Volume fraction] 37.3 % Normal 35-47 [facility] Comment on above: Performed By: #### Ramila CAIN, 20021-8, CMP, , 65539-2 #### [facility] ([id number]) [address] [place] [address] 64523 Hemoglobin (Bld) [Mass/Vol] 12.0 g/dL Normal 11.7-15.5 [facility] Comment on above: Performed By: #### Ramila CAIN, 93145-0, CMP, 28505-9, 07599-0 #### [facility] ([id number]) [address] [place] [address] 19717 Lymphocytes (Bld) [#/Vol] 1.2 10*3/uL Normal 1.0-3.5 [facility] Comment on above: Performed By: #### Ramila CAIN, 89822-8, CMP, , 85194-5 #### [facility] ([id number]) [address] [place] [address] 91562 Lymphocytes/100 WBC (Bld) 10.8 % Normal [facility] Comment on above: Performed By: #### Ramila CAIN, 62065-7, CMP, , 40458-4 #### [facility] ([id number]) [address] [place] [address] 30775 MCH (RBC) [Entitic mass] 30.7 pg Normal 27-34 [facility] Comment on above: Performed By: #### Ramila CAIN, 78333-7, CMP, , 33896-4 #### [facility] ([id number]) [address] [place] [address] 14751 MCHC (RBC) [Mass/Vol] 32.2 g/dL Normal 32-36 [facility] Comment on above: Performed By: #### Ramila CAIN, 34193-1, CMP, , 82609-8 #### [facility] ([id number]) [address] [place] [address] 06276 MCV (RBC) [Entitic vol] 95 fL Normal 80-100 [facility] Comment on above: Performed By: #### Ramila CAIN, 64873-2, CMP, , 45187-2 #### [facility] ([id number]) [address] [place] [address] 26945 Monocytes (Bld) [#/Vol] 0.6 10*3/uL Normal 0-0.9 [facility] Comment on above: Performed By: #### Ramila CAIN, 34952-2, CMP, , 29222-6 #### [facility] ([id number]) [address] [place] [address] 46046 Monocytes/100 WBC (Bld) 5.6 % Normal [facility] Comment on above: Performed By: #### Ramila CAIN, 00793-9, CMP, 08723-4, 87042-6 #### [facility] ([id number]) [address] [place] [address] 66783 Neutrophils/100 WBC (Bld) 83.2 % Normal [facility] Comment on above: Performed By: #### Ramila CAIN, 14688-9, CMP, 73511-7, 51450-2 #### [facility] ([id number]) [address] [place] [address] 61396 Platelet mean volume (Bld) [Entitic vol] 7.9 fL Normal 7-12 [facility] Comment on above: Performed By: #### Ramila CAIN, 53776-2, CMP, , 82194-0 #### [facility] ([id number]) [address] [place] [address] 48909 Platelets (Bld) [#/Vol] 290 10*3/uL Normal 150-450 [facility] Comment on above: Performed By: #### Ramila CAIN, 76716-3, CMP, , 13534-8 #### [facility] ([id number]) [address] [place] [address] 41604 RBC COUNT 3.90 X10E12/L Normal 3.80-5.20 [facility] Comment on above: Performed By: #### Ramila CAIN, 29917-1, CMP, , 04280-1 #### [facility] ([id number]) [address] [place] [address] 49215 WBC (Bld) [#/Vol] 11.4 10*3/uL High 4.0-11.0 [facility] Comment on above: Performed By: #### C BCA, 09582-8, CMP, 11081-4, 12211-7 #### [facility] ([id number]) [address] [place] [address], [place] [address] CBC with Diffon 01-20-2024 Abs. Basophil <0.03 Normal 0.00-0.20 [facility] Comment on above: Performed By: #### C RP, PE, C4, GLYHGB, CDP, IMMS, MARCELA, C3, CK, ANAX, URI, ANCACP, VD25, CP #### [address] [id number] [employer] Designer: Lawrence Goff MD Abs. Eosinophil <0.03 Normal 0.00-0.44 [facility] Comment on above: Performed By: #### C RP, PE, C4, GLYHGB, CDP, IMMS, MARCELA, C3, CK, ANAX, URI, ANCACP, VD25, CP #### [address] [id number] [employer] Designer: Lawrence Goff MD Abs.Imm.Granulocyte 0.03 k/uL Normal 0.00-0.30 [facility] Comment on above: Performed By: #### C RP, PE, C4, GLYHGB, CDP, IMMS, MARCELA, C3, CK, ANAX, URI, ANCACP, VD25, CP #### [facility] [address] [place], [place] [phone] Wedding [employer] Designer: Lawrence Goff MD Abs.Neutrophil (Seg) 7.50 k/uL Normal 1.50-8.10 [facility] Comment on above: Performed By: #### C RP, PE, C4, GLYHGB, CDP, IMMS, MARCELA, C3, CK, ANAX, URI, ANCACP, VD25, CP #### [facility] [address] [place] [address] [id number] [employer] Designer: Lawrence Goff MD Basophils/100 WBC (Bld) 0 % Normal 0-2 [facility] Comment on above: Performed By: #### C RP, PE, C4, GLYHGB, CDP, IMMS, MARCELA, C3, CK, ANAX, URI, ANCACP, VD25, CP #### [address] [id number] Wedding [employer] Designer: Lawrence Goff MD Eosinophils/100 WBC (Bld) 0 % Low 1-4 [facility] Comment on above: Performed By: #### C RP, PE, C4, GLYHGB, CDP, IMMS, MARCELA, C3, CK, ANAX, URI, ANCACP, VD25, CP #### [address] [id number] [employer]er: Lawrence Goff MD Erythrocyte distribution width (RBC) [Ratio] 15.2 % High 11.8-14.4 [facility] Comment on above: Performed By: #### C RP, PE, C4, GLYHGB, CDP, IMMS, MARCELA, C3, CK, ANAX, URI, ANCACP, VD25, CP #### [place] [id number] [employer]: Lawrence Goff MD Hematocrit (Bld) [Volume fraction] 32.3 % Low 36.3-47.1 [facility] Comment on above: Performed By: #### C RP, PE, C4, GLYHGB, CDP, IMMS, MARCELA, C3, CK, ANAX, URI, ANCACP, VD25, CP #### [place] [id number] [employer]: Lawrence Goff MD Hemoglobin (Bld) [Mass/Vol] 10.7 g/dL Low 11.9-15.1 [facility] Comment on above: Performed By: #### C RP, PE, C4, GLYHGB, CDP, IMMS, MARCELA, C3, CK, ANAX, URI, ANCACP, VD25, CP #### [address] [id number] Wedding [employer] Designer: Lawrence Goff MD Immature granulocytes/100 WBC (Bld) 0 % Normal 0 [facility] Comment on above: Performed By: #### C RP, PE, C4, GLYHGB, CDP, IMMS, MARCELA, C3, CK, ANAX, URI, ANCACP, VD25, CP #### [address] [phone] [employer]er: Lawrence Goff MD Lymphocytes (Bld) [#/Vol] 1.54 10*3/uL Normal 1.10-3.70 [facility] Comment on above: Performed By: #### C RP, PE, C4, GLYHGB, CDP, IMMS, MARCELA, C3, CK, ANAX, URI, ANCACP, VD25, CP #### [place] [id number] [employer]er: Lawrence Goff MD Lymphocytes/100 WBC (Bld) 15 % Low 24-43 [facility] Comment on above: Performed By: #### C RP, PE, C4, GLYHGB, CDP, IMMS, MARCELA, C3, CK, ANAX, URI, ANCACP, VD25, CP #### [place] [phone] [employer]er: Lawrence Goff MD MCH (RBC) [Entitic mass] 31.2 pg Normal 25.2-33.5 [facility] Comment on above: Performed By: #### C RP, PE, C4, GLYHGB, CDP, IMMS, MARCELA, C3, CK, ANAX, URI, ANCACP, VD25, CP #### [address] [phone] [employer]er: Lawrence Goff MD MCHC (RBC) [Mass/Vol] 33.1 g/dL Normal 28.4-34.8 [facility] Comment on above: Performed By: #### C RP, PE, C4, GLYHGB, CDP, IMMS, MARCELA, C3, CK, ANAX, URI, ANCACP, VD25, CP #### [place] [phone] [employer]er: Lawrence Goff MD MCV (RBC) [Entitic vol] 94.2 fL Normal 82.6-102.9 [facility] Comment on above: Performed By: #### C RP, PE, C4, GLYHGB, CDP, IMMS, MARCELA, C3, CK, ANAX, URI, ANCACP, VD25, CP #### [place] [address] [employer]er: Lawrence Goff MD Monocytes (Bld) [#/Vol] 0.86 10*3/uL Normal 0.10-1.20 [facility] Comment on above: Performed By: #### C RP, PE, C4, GLYHGB, CDP, IMMS, MARCELA, C3, CK, ANAX, URI, ANCACP, VD25, CP #### [place] [address] [employer]er: Lawrence Goff MD Monocytes/100 WBC (Bld) 9 % Normal 3-12 [facility] Comment on above: Performed By: #### C RP, PE, C4, GLYHGB, CDP, IMMS, MARCELA, C3, CK, ANAX, URI, ANCACP, VD25, CP #### [place] [address] [employer] Designer: Lawrence Goff MD Neutrophil (Seg) 76 % High 36-65 [facility] Comment on above: Performed By: #### C RP, PE, C4, GLYHGB, CDP, IMMS, MARCELA, C3, CK, ANAX, URI, ANCACP, VD25, CP #### [address] [phone] [employer]er: Lawrence Goff MD NRBC Automated 0.0 per 100 WBC Normal 0.0 [facility] Comment on above: Performed By: #### C RP, PE, C4, GLYHGB, CDP, IMMS, MARCELA, C3, CK, ANAX, URI, ANCACP, VD25, CP #### [address] [phone] [employer]er: Lawrence Goff MD Platelet mean volume (Bld) [Entitic vol] 9.6 fL Normal 8.1-13.5 [facility] Comment on above: Performed By: #### C RP, PE, C4, GLYHGB, CDP, IMMS, MARCELA, C3, CK, ANAX, URI, ANCACP, VD25, CP #### [address] [phone] [employer]er: Lawrence Goff MD Platelets (Bld) [#/Vol] 242 10*3/uL Normal 138-453 [facility] Comment on above: Performed By: #### C RP, PE, C4, GLYHGB, CDP, IMMS, MARCELA, C3, CK, ANAX, URI, ANCACP, VD25, CP #### [address] [phone] [employer]er: Lawrence Goff MD RBC (Bld) [#/Vol] 3.43 10*6/uL Low 3.95-5.11 [facility] Comment on above: Performed By: #### C RP, PE, C4, GLYHGB, CDP, IMMS, MARCELA, C3, CK, ANAX, URI, ANCACP, VD25, CP #### [address] [phone] [employer]er: Lawrence Goff MD RBC morphology finding Nom (Bld) ANISOCYTOSIS PRESENT Normal [facility] Comment on above: Performed By: #### C RP, PE, C4, GLYHGB, CDP, IMMS, MARCELA, C3, CK, ANAX, URI, ANCACP, VD25, CP #### [address] [phone] [employer]er: Lawrence Goff MD WBC (Bld) [#/Vol] 10.0 10*3/uL Normal 3.5-11.3 [facility] Comment on above: Performed By: #### C RP, PE, C4, GLYHGB, CDP, IMMS, MARCELA, C3, CK, ANAX, URI, ANCACP, VD25, CP #### [address] [phone] [employer] Designer: Lawrence Goff MD COMPREHENSIVE METABOLIC PANE [facility] 01-20-2024 Albumin [Mass/Vol] 4.7 g/dL Normal 3.2-5.3 [facility] Comment on above: Performed By: #### C BCA, 00249-6, CMP, 35858-1, 68655-4 #### [facility] ([id number]) [address] [place] [address]39 ALP [Catalytic activity/Vol] 85 U/L Normal 39-130 [facility] Comment on above: Performed By: #### C BCA, 31941-2, CMP, 83052-5, 36496-1 #### [facility] ([id number]) [address] [place] [address] 87498 ALT [Catalytic activity/Vol] 17 U/L Normal 0-31 [facility] Comment on above: Performed By: #### C BCA, 36870-5, CMP, 23421-8, 64969-6 #### [facility] ([id number]) [address] [place] [address] 82051 Anion gap [Moles/Vol] 8 mmol/L Normal 5-15 [facility] Comment on above: Performed By: #### C BCA, 91078-6, CMP, 07139-1, 14312-7 #### [facility] ([id number]) [address] [place] [address] 89107 AST [Catalytic activity/Vol] 19 U/L Normal 0-41 [facility] Comment on above: Performed By: #### C BCA, 88317-1, CMP, 63007-8, 94679-6 #### [facility] ([id number]) [address] [place] [address] 79006 Bilirubin [Mass/Vol] 0.3 mg/dL Normal 0.3-1.2 [facility] Comment on above: Performed By: #### C BCA, 97687-1, CMP, 28244-5, 43869-6 #### [facility] ([id number]) [address] [place] [address]75 Calcium [Mass/Vol] 9.3 mg/dL Normal 8.5-10.5 [facility] Comment on above: Performed By: #### C BCA, 29540-0, CMP, , 85540-1 #### [facility] ([id number]) [address] [place] [address] 28605 Chloride [Moles/Vol] 112 mmol/L High 98-109 [facility] Comment on above: Performed By: #### C BCA, 33660-9, CMP, , 42013-0 #### [facility] ([id number]) [address] [place] [address] 20687 CO2 [Moles/Vol] 14 mmol/L Low 22-32 [facility] Comment on above: Performed By: #### C BCA, 74715-6, CMP, 06849-8, 41490-4 #### [facility] ([id number]) [address] [place] [address] 72996 Creatinine [Mass/Vol] 3.53 mg/dL High 0.40-1.00 [facility] Comment on above: Result Comment: METH OD TRACEABLE TO IDMS STANDARD Performed By: #### C ANT, 09063-5, CMP, , 75515-2 #### [facility] ([id number]) [address] [place] [address] 31435 GFR/1.73 sq M.predicted among non-blacks MDRD (S/P/Bld) [Vol rate/Area] 15 mL/min/{1.73_m2} Low >59 [facility] Comment on above: Result Comment: Reported eGFR is based on the CKD-EPI 2020 equation that does not use a race coefficient. Performed By: #### C ANT, 66591-3, CMP, , 18500-1 #### [facility] ([id number]) [address] [place] [address] 77653 Glucose [Mass/Vol] 115 mg/dL High 65-99 [facility] Comment on above: Performed By: #### C ANT, 42260-5, DARLYN, , 18675-0 #### [facility] ([id number]) [address] [place] [address] 82184 Potassium [Moles/Vol] 8.7 mmol/L Critically high 3.5-5.0 [facility] Comment on above: Performed By: #### C ANT, 86374-1, CMP, , 03673-4 #### [facility] ([id number]) [address] [place] [address] 26032 Protein [Mass/Vol] 8.6 g/dL High 6.0-8.0 [facility] Comment on above: Performed By: #### C BCA, 96083-2, CMP, , 28537-9 #### [facility] ([id number]) [address] [place] [address] 60150 Sodium [Moles/Vol] 134 mmol/L Normal 134-146 [facility] Comment on above: Performed By: #### C BCA, 31315-0, CMP, 09829-6, 93448-1 #### [facility] ([id number]) [address] [place] [address], [place] [address] Urea nitrogen [Mass/Vol] 88 mg/dL High 5-23 [facility] Comment on above: Performed By: #### C BCA, 21216-4, CMP, 58117-0, 82915-6 #### [facility] ([id number]) [address] [place] [address], [place] [address] Comp Metabolic Profon 2023 Albumin [Mass/Vol] 4.4 g/dL Normal 3.5-5.2 [facility] Comment on above: Performed By: #### C RP, PE, C4, GLYHGB, CDP, IMMS, MARCELA, C3, CK, ANAX, URI, ANCACP, VD25, CP #### [facility] [facility] [address] [place] [address] [phone] [employer] Designer: Lawrence Goff MD Albumin/Glob Ratio 2.0 Normal 1.0-2.5 [facility] Comment on above: Performed By: #### C RP, PE, C4, GLYHGB, CDP, IMMS, MARCELA, C3, CK, ANAX, URI, ANCACP, VD25, CP #### [facility] [address] [place] [address] Wedding [employer] Designer: Lawrence Goff MD Alkaline Phos 87 U/L Normal 35-104 [facility] Comment on above: Performed By: #### C RP, PE, C4, GLYHGB, CDP, IMMS, MARCELA, C3, CK, ANAX, URI, ANCACP, VD25, CP #### [employer] [facility] [address] [place] [address] [phone] Wedding [employer] Designer: Lawrence Goff MD ALT [Catalytic activity/Vol] 18 U/L Normal 10-35 [facility] Comment on above: Performed By: #### C RP, PE, C4, GLYHGB, CDP, IMMS, MARCELA, C3, CK, ANAX, URI, ANCACP, VD25, CP #### [address] [phone] Wedding [employer] Designer: Lawrence Goff MD Anion gap [Moles/Vol] 15 mmol/L Normal 9-16 [facility] Comment on above: Performed By: #### C RP, PE, C4, GLYHGB, CDP, IMMS, MARCELA, C3, CK, ANAX, URI, ANCACP, VD25, CP #### [place] [phone] [employer] Designer: Lawrence Goff MD AST [Catalytic activity/Vol] 22 U/L Normal -35 [facility] Comment on above: Performed By: #### C RP, PE, C4, GLYHGB, CDP, IMMS, MARCELA, C3, CK, ANAX, URI, ANCACP, VD25, CP #### [place] [address] Wedding [employer] Designer: Lawrence Goff MD Bilirubin [Mass/Vol] 0.2 mg/dL Normal 0.00-1.20 [facility] Comment on above: Performed By: #### C RP, PE, C4, GLYHGB, CDP, IMMS, MARCELA, C3, CK, ANAX, URI, ANCACP, VD25, CP #### [place] [phone] Wedding [employer] Designer: Lawrence Goff MD Calcium [Mass/Vol] 10.5 mg/dL High 8.6-10.4 [facility] Comment on above: Performed By: #### C RP, PE, C4, GLYHGB, CDP, IMMS, MARCELA, C3, CK, ANAX, URI, ANCACP, VD25, CP #### [address] [phone] Wedding [employer] Designer: Lawrence Goff MD Chloride [Moles/Vol] 110 mmol/L High 98-107 [facility] Comment on above: Performed By: #### C RP, PE, C4, GLYHGB, CDP, IMMS, MARCELA, C3, CK, ANAX, URI, ANCACP, VD25, CP #### [address] [phone] [employer] Designer: Lawrence Goff MD CO2 [Moles/Vol] 18 mmol/L Low 20-31 [facility] Comment on above: Performed By: #### C RP, PE, C4, GLYHGB, CDP, IMMS, MARCELA, C3, CK, ANAX, URI, ANCACP, VD25, CP #### [address] [phone] [employer] Designer: Lawrence Goff MD Creatinine [Mass/Vol] 2.9 mg/dL High 0.50-0.90 [facility] Comment on above: Performed By: #### C RP, PE, C4, GLYHGB, CDP, IMMS, MARCELA, C3, CK, ANAX, URI, ANCACP, VD25, CP #### [address] [phone] [employer] Designer: Lawrence Goff MD GFR/1.73 sq M.predicted among non-blacks MDRD (S/P/Bld) [Vol rate/Area] 19 mL/min/{1.73_m2} Low >60 [facility] Comment on above: Result Comment: These results are not intended for use in patients <18 years of age. eGFR results are calculated without a race factor using the 2020 CKD-EPI equation. Careful clinical correlation is recommended, particularly when comparing to results calculated using previous equations. The CKD-EPI equation is less accurate in patients with extremes of muscle mass, extra-renal metabolism of creatine, excessive creatine ingestion, or following therapy that affects renal tubular secretion. Performed By: #### C RP, PE, C4, GLYHGB, CDP, IMMS, MARCELA, C3, CK, ANAX, URI, ANCACP, VD25, CP #### [address] [phone] [employer]er: Lawrence Goff MD Glucose [Mass/Vol] 146 mg/dL High 74-99 [facility] Comment on above: Performed By: #### C RP, PE, C4, GLYHGB, CDP, IMMS, MARCELA, C3, CK, ANAX, URI, ANCACP, VD25, CP #### [address] [phone] [employer] Designer: Lawrence Goff MD Potassium [Moles/Vol] 4.4 mmol/L Normal 3.7-5.3 [facility] Comment on above: Performed By: #### C RP, PE, C4, GLYHGB, CDP, IMMS, MARCELA, C3, CK, ANAX, URI, ANCACP, VD25, CP #### [place] [address] Wedding [employer] Designer: Lawrence Goff MD Protein [Mass/Vol] 6.9 g/dL Normal 6.6-8.7 [facility] Comment on above: Performed By: #### C RP, PE, C4, GLYHGB, CDP, IMMS, MARCELA, C3, CK, ANAX, URI, ANCACP, VD25, CP #### [address] [phone] [employer]er: Lawrence Goff MD Sodium [Moles/Vol] 143 mmol/L Normal 136-145 [facility] Comment on above: Performed By: #### C RP, PE, C4, GLYHGB, CDP, IMMS, MARCELA, C3, CK, ANAX, URI, ANCACP, VD25, CP #### [address] [phone] [employer] Designer: Lawrence Goff MD Urea nitrogen [Mass/Vol] 76 mg/dL High 6-20 [facility] Comment on above: Performed By: #### C RP, PE, C4, GLYHGB, CDP, IMMS, MARCELA, C3, CK, ANAX, URI, ANCACP, VD25, CP #### [address] [phone] Wedding [employer] Designer: Lawrence Goff MD Creatine Kinaseon 01-20-2024 CK [Catalytic activity/Vol] 108 U/L Normal 26-192 [facility] Comment on above: Performed By: #### C RP, PE, C4, GLYHGB, CDP, IMMS, MARCELA, C3, CK, ANAX, URI, ANCACP, VD25, CP #### [address] [phone] [employer] Designer: Lawrence Goff MD Creatinine,Random Uron 01-19 Creatinine [Mass/Vol] 21.1 mg/dL Low 28.0-217.0 [facility] Comment on above: Performed By: #### C RP, PE, C4, GLYHGB, CDP, IMMS, MARCELA, C3, CK, ANAX, URI, ANCACP, VD25, CP #### [address] [phone] Wedding [employer] Designer: Lawrence Goff MD Fibrin D-dimer DDU (PPP) [Ma ss/Vol]on 01-20-2024 D DIMER <150 Normal <255 [facility] Comment on above: Result Comment: Results <255 ng/mL DDU: The presence of a VTE can safely be excluded with a negative D-Dimer result and Wells score. A negative result doesn't exclude the possibility of DIC. The test be repeated along with other diagnostic tests if the patient's symptoms persist or worsen. [email or web address] Performed By: #### C BCA, 59631-6, CMP, 01261-1, 15955-8 #### [facility] ([id number]) [address] [place] [address] 82060 HCG ( test) Ql (U)o n 01-20-2024 Beta HCG ( test) Ql (U) Negative Normal NEG [facility] Comment on above: Performed By: #### 2 106-3 #### [facility] ([id number]) [address] [place] [address] 40509 Immunoglobulinson 01-20-2024 IgA [Mass/Vol] 254 mg/dL Normal 70-400 [facility] Comment on above: Performed By: #### C RP, PE, C4, GLYHGB, CDP, IMMS, MARCLEA, C3, CK, ANAX, URI, ANCACP, VD25, CP #### [facility] [employer] [facility] [address] [place] [address] [phone] [employer] Designer: Lawrence Goff MD IgG [Mass/Vol] 935 mg/dL Normal 700-1600 [facility] Comment on above: Performed By: #### C RP, PE, C4, GLYHGB, CDP, IMMS, MARCELA, C3, CK, ANAX, URI, ANCACP, VD25, CP #### [facility] [address] [place] [address] [phone] [employer]er: Lawrence Goff MD IgM [Mass/Vol] 38 mg/dL Low 40-230 [facility] Comment on above: Performed By: #### C RP, PE, C4, GLYHGB, CDP, IMMS, MARCELA, C3, CK, ANAX, URI, ANCACP, VD25, CP #### [facility] [address] [place] [address] 67900 [employer]er: Lawrence Goff MD Lactic Acidon 01-20-2024 Lactic Acid,Whole Bl 1.3 mmol/L Normal 0.7-2.1 [facility] Comment on above: Performed By: #### C RP, PE, C4, GLYHGB, CDP, IMMS, MARCELA, C3, CK, ANAX, URI, ANCACP, VD25, CP #### [employer] [address] [place] [address] [phone] [employer]er: Lawrence Goff MD MAGNESIUMon 01-20-2024 Magnesium [Mass/Vol] 2.3 mg/dL Normal 1.8-2.6 [facility] Comment on above: Performed By: #### C BCA, 13421-2, CMP, 34215-4, 26837-2 #### [facility] ([id number]) [address] [place] [address] 65333 Myoglobinon 01-20-2024 Myoglobin [Mass/Vol] 55 ng/mL Normal 25-58 [facility] Comment on above: Performed By: #### C RP, PE, C4, GLYHGB, CDP, IMMS, MARCELA, C3, CK, ANAX, URI, ANCACP, VD25, CP #### [facility] [address] [place] [address] [phone] [employer]er: Lawrence Goff MD POTASSIUMon 01-20-2024 Potassium [Moles/Vol] 4.8 mmol/L Normal 3.5-5.0 [facility] Comment on above: Performed By: #### 2 823-3 #### [facility] ([id number]) [address] [place] [address] 94526 PTH, Intacton 01-20-2024 PTH, Intact 41.0 pg/mL Normal 15-65 [facility] Comment on above: Result Comment: SAMP LES FROM PATIENTS ROUTINELY RECEIVING HIGH DOSE BIOTIN THERAPY MAY SHOW FALSELY DEPRESSED RESULTS. ADDITIONAL INFORMATION MAY BE REQUIRED FOR DIAGNOSIS. Performed By: #### C RP, PE, C4, GLYHGB, CDP, IMMS, MARCELA, C3, CK, ANAX, URI, ANCACP, VD25, CP #### [employer] [address] [place] [address] [phone] [employer]er: Lawrence Goff MD Calcium [Moles/Vol] 1.29 mmol/L Normal 1.13-1.33 [facility] Comment on above: Performed By: #### C RP, PE, C4, GLYHGB, CDP, IMMS, MARCELA, C3, CK, ANAX, URI, ANCACP, VD25, CP #### [facility] [address] [place] [address] [phone] [employer]: Lawrence Goff MD Sodium, Random Uron 01-20-20 24 Sodium (U) [Moles/Vol] 134 mmol/L Normal [facility] Comment on above: Result Comment: No n ormal range established. Performed By: #### C RP, PE, C4, GLYHGB, CDP, IMMS, MARCELA, C3, CK, ANAX, URI, ANCACP, VD25, CP #### [address] [phone] [employer]: Lawrence Goff MD Troponin I.cardiac High sens itivity method [Mass/Vol]on 01-20-2024 1 HOUR TROP I, HIGH SENSITIVITY <2 Normal <16 [facility] Comment on above: Performed By: #### 8 9579-7 #### [facility] ([id number]) [address] [place] [address] 83896 TROPONIN I, HIGH SENSITIVITY 2 ng/L Normal <16 [facility] Comment on above: Performed By: #### C BCA, 13785-2, CMP, 46384-1, 93603-6 #### [facility] ([id number]) [address] [place] [address] 19392 URN MACROSCOPIC NURon 2023 BILIRUBIN SANDRA Negative Normal NEG [facility] Comment on above: Performed By: #### N UM #### [facility] ([id number]) [address] [place] [address] 55782 BLOOD/HGB SANDRA Negative Normal NEG [facility] Comment on above: Performed By: #### N UM #### [facility] ([id number]) [address] [place] [address] 26973 GLUCOSE SANDRA 250 mg/dL Abnormal NEG [facility] Comment on above: Performed By: #### N UM #### [facility] ([id number]) [address] [place] [address] 52817 KETONES SANDRA Negative Normal NEG [facility] Comment on above: Performed By: #### N UM #### [facility] ([id number]) [address] [place] [address] 97568 LEUKOCYTE ESTERASE SANDRA Negative Normal NEG [facility] Comment on above: Performed By: #### N UM #### [facility] ([id number]) [address] [place] [address] 82479 NITRITE SANDRA Negative Normal NEG [facility] Comment on above: Performed By: #### N UM #### [facility] ([id number]) [address] [place] [address] 92698 PH SANDRA 5.5 Normal 5.0-8.5 [facility] Comment on above: Performed By: #### N UM #### [facility] ([id number]) [address] [place] [address] 16992 PROTEIN SANDRA Negative Normal NEG [facility] Comment on above: Performed By: #### N UM #### [facility] ([id number]) [address] [address] [place] [address] SPECIFIC GRAVITY SANDRA 1.010 Normal 1.003-1.035 [facility] Comment on above: Performed By: #### N UM #### [facility] ([id number]) [address] [place] [address] 76585 UROBILINOGEN SANDRA 0.2 eu/dL Normal <1.1 [facility] Comment on above: Performed By: #### N UM #### [facility] ([id number]) [address] [facility] [place] [address] Uric Acidon 01-20-2024 Urate [Mass/Vol] 6.8 mg/dL High 2.4-5.7 [facility] Comment on above: Performed By: #### C RP, PE, C4, GLYHGB, CDP, IMMS, MARCELA, C3, CK, ANAX, URI, ANCACP, VD25, CP #### [address] [phone] [employer]: Lawrence Goff MD Urinalysis w/ Microon 2023 Bacteria None Normal NONE [facility] Comment on above: Performed By: #### C RP, PE, C4, GLYHGB, CDP, IMMS, MARCELA, C3, CK, ANAX, URI, ANCACP, VD25, CP #### [address] [phone] [employer]: Lawrence Goff MD Bilirubin, SemiQt,Ur Negative Normal NEG [facility] Comment on above: Performed By: #### C RP, PE, C4, GLYHGB, CDP, IMMS, MARCELA, C3, CK, ANAX, URI, ANCACP, VD25, CP #### [address] [phone] [employer]: Lawrence Goff MD Blood, Urine Negative Normal NEG [facility] Comment on above: Performed By: #### C RP, PE, C4, GLYHGB, CDP, IMMS, MARCELA, C3, CK, ANAX, URI, ANCACP, VD25, CP #### [address] [phone] [employer]: Lawrence Goff MD Casts None Normal 0-8 [facility] Comment on above: Result Comment: Refe rence range defined for non-centrifuged specimen. Performed By: #### C RP, PE, C4, GLYHGB, CDP, IMMS, MARCELA, C3, CK, ANAX, URI, ANCACP, VD25, CP #### [address] [id number] [employer]er: Lawrence Goff MD Clarity (U) Clear Normal CLEAR [facility] Comment on above: Performed By: #### C RP, PE, C4, GLYHGB, CDP, IMMS, MARCELA, C3, CK, ANAX, URI, ANCACP, VD25, CP #### [address] [id number] [employer]er: Lawrence Goff MD Color (U) Yellow Normal YEL [facility] Comment on above: Performed By: #### C RP, PE, C4, GLYHGB, CDP, IMMS, MARCELA, C3, CK, ANAX, URI, ANCACP, VD25, CP #### [address] [phone] [employer]er: Lawrence Goff MD Epithelial cells LM Ql (Urine sed) None Normal 0-5 [facility] Comment on above: Performed By: #### C RP, PE, C4, GLYHGB, CDP, IMMS, MARCELA, C3, CK, ANAX, URI, ANCACP, VD25, CP #### [address] [id number] [employer]er: Lawrence Goff MD Glucose Ql (U) Negative Normal NEG [facility] Comment on above: Performed By: #### C RP, PE, C4, GLYHGB, CDP, IMMS, MARCELA, C3, CK, ANAX, URI, ANCACP, VD25, CP #### [address] [id number] [employer]: Lawrence Goff MD Ketones Ql (U) Negative Normal NEG [facility] Comment on above: Performed By: #### C RP, PE, C4, GLYHGB, CDP, IMMS, MARCELA, C3, CK, ANAX, URI, ANCACP, VD25, CP #### [address] [id number] Wedding Cake Designer: Lawrence Goff MD Leukocyte esterase Test strip Ql (U) Negative Normal NEG [facility] Comment on above: Performed By: #### C RP, PE, C4, GLYHGB, CDP, IMMS, MARCELA, C3, CK, ANAX, URI, ANCACP, VD25, CP #### [place] [id number] Wedding Cake Designer: Lawrence Goff MD Nitrite,Ur Negative Normal NEG [facility] Comment on above: Performed By: #### C RP, PE, C4, GLYHGB, CDP, IMMS, MARCELA, C3, CK, ANAX, URI, ANCACP, VD25, CP #### [place] [id number] Wedding Cake Designer: Lawrence Goff MD PH,Ur 5.0 Normal 5.0-8.0 [facility] Comment on above: Performed By: #### C RP, PE, C4, GLYHGB, CDP, IMMS, MARCELA, C3, CK, ANAX, URI, ANCACP, VD25, CP #### [place] [id number] Wedding Cake Designer: Lawrence Goff MD Protein Ql (U) Negative Normal NEG [facility] Comment on above: Performed By: #### C RP, PE, C4, GLYHGB, CDP, IMMS, MARCELA, C3, CK, ANAX, URI, ANCACP, VD25, CP #### [address] [id number] Wedding Cake Designer: Lawrence Goff MD Spec. [place],Ur 1.007 Normal 1.005-1.030 [facility] Comment on above: Performed By: #### C RP, PE, C4, GLYHGB, CDP, IMMS, MARCELA, C3, CK, ANAX, URI, ANCACP, VD25, CP #### [address] [id number] Wedding [employer] Designer: Lawrence Goff MD Urine RBC's 0 TO 2 Normal 0-4 [facility] Comment on above: Result Comment: Refe rence range defined for non-centrifuged specimen. Performed By: #### C RP, PE, C4, GLYHGB, CDP, IMMS, MARCELA, C3, CK, ANAX, URI, ANCACP, VD25, CP #### [address] [id number] Wedding [employer] Designer: Lawrence Goff MD Urine WBC's 2 TO 5 Normal 0-5 [facility] Comment on above: Performed By: #### C RP, PE, C4, GLYHGB, CDP, IMMS, MARCELA, C3, CK, ANAX, URI, ANCACP, VD25, CP #### [address] [id number] Wedding Cake Designer: Lawrence Goff MD Urobilinogen,Ur Normal Normal 0.0-1.0 [facility] Comment on above: Performed By: #### C RP, PE, C4, GLYHGB, CDP, IMMS, MARCELA, C3, CK, ANAX, URI, ANCACP, VD25, CP #### [address] [id number] Wedding Cake Designer: Lawrence Goff MD Venous Blood Gaseson 024 Body Temp. 37.0 Normal [facility] Comment on above: Performed By: #### C RP, PE, C4, GLYHGB, CDP, IMMS, MARCELA, C3, CK, ANAX, URI, ANCACP, VD25, CP #### [address] [id number] Wedding Cake Designer: Lawrence Goff MD Carboxy Hgb 4.1 % Normal 0-5 [facility] Comment on above: Result Comment: Reference Range: Non-Smokers 0-2% Average Smoker 2-4% Heavy Smoker <10% Performed By: #### C RP, PE, C4, GLYHGB, CDP, IMMS, MARCELA, C3, CK, ANAX, URI, ANCACP, VD25, CP #### [address] [id number] Wedding Cake Designer: Lawrence Goff MD FIO2 INFORMATION NOT PROVIDED Normal [facility] Comment on above: Performed By: #### C RP, PE, C4, GLYHGB, CDP, IMMS, MARCELA, C3, CK, ANAX, URI, ANCACP, VD25, CP #### [place] [id number] Wedding Cake Designer: Lawrence Goff MD HCO3 (Bld) [Moles/Vol] 19.9 mmol/L Low 24-30 [facility] Comment on above: Performed By: #### C RP, PE, C4, GLYHGB, CDP, IMMS, MARCELA, C3, CK, ANAX, URI, ANCACP, VD25, CP #### [address] [id number] Wedding Cake Designer: Lawrence Goff MD Negative Base Excess 4.3 mmol/L High 0.0-2.0 [facility] Comment on above: Performed By: #### C RP, PE, C4, GLYHGB, CDP, IMMS, MARCELA, C3, CK, ANAX, URI, ANCACP, VD25, CP #### [address] [id number] Wedding [employer] Designer: Lawrence Goff MD Oxygen saturation in Blood 98.3 % High 60.0-85.0 [facility] Comment on above: Performed By: #### C RP, PE, C4, GLYHGB, CDP, IMMS, MARCELA, C3, CK, ANAX, URI, ANCACP, VD25, CP #### [address] [id number] Wedding Cake Designer: Lawrence Goff MD pCO2 35.1 mm Hg Low 39-55 [facility] Comment on above: Performed By: #### C RP, PE, C4, GLYHGB, CDP, IMMS, MARCELA, C3, CK, ANAX, URI, ANCACP, VD25, CP #### [address] [id number] Wedding Cake Designer: Lawrence Goff MD pH (Bld) 7.371 [pH] Normal 7.320-7.420 [facility] Comment on above: Performed By: #### C RP, PE, C4, GLYHGB, CDP, IMMS, MARCELA, C3, CK, ANAX, URI, ANCACP, VD25, CP #### [address] [id number] Wedding [employer] Designer: Lawrence Goff MD pO2 137.0 mm Hg High 30-50 [facility] Comment on above: Performed By: #### C RP, PE, C4, GLYHGB, CDP, IMMS, MARCELA, C3, CK, ANAX, URI, ANCACP, VD25, CP #### [address] [id number] Wedding Cake Designer: Lawrence Goff MD Vitamin D 25 OHon 01-20-2024 Vitamin D 25 OH 28.5 ng/mL Low 30.0-100.0 [facility] Comment on above: Result Comment: Reference Range: Vitamin D status Range Deficiency <20 ng/mL Mild Deficiency 20-30 ng/mL Sufficiency 30-100 ng/mL Toxicity >100 ng/mL Performed By: #### C RP, PE, C4, GLYHGB, CDP, IMMS, MARCELA, C3, CK, ANAX, URI, ANCACP, VD25, CP #### [address] [place] [address] Wedding Cake Designer: Lawrence Goff MD XR CHEST 1 VWon 01-20-2024 XR CHEST 1 VW XR CHEST 1 VW XR CHEST 1 VW History: Near syncope. One view study. Comparison: None Impression: * No significant interval change.No focal airspace disease or infiltrate is appreciated. No congestive features or large effusion. No pneumothorax. Finalized by Keisha Conway MD on 01/20/2024 1:47 PM Normal [facility] Erythrocyte distribution wid th Auto (RBC) [Ratio]on 11-05-2023 Erythrocyte distribution width (RBC) [Ratio] 13.8 % 11.0-15.0 [facility] Estimated glomerular filtrat ion rate (GFR) non- Americanon 11-05-2023 GFR/1.73 sq M.predicted among non-blacks MDRD (S/P/Bld) [Vol rate/Area] 35 mL/min/{1.73_m2} >=60 [facility] Globulin Calc (S) [Mass/Vol] on 11-05-2023 Globulin (S) [Mass/Vol] 3.7 g/dL [facility] Hematocrit Auto (Bld) [Volum e fraction]on 11-05-2023 Hematocrit (Bld) [Volume fraction] 36.6 % 36.0-48.0 [facility] Hemoglobin [Mass/volume] in Bloodon 11-05-2023 Hemoglobin (Bld) [Mass/Vol] 12.1 g/dL 12.0-16.0 [facility] Laboratory - Chemistry and C hemistry - challengeon 11-05-2023 Albumin [Mass/Vol] 3.9 g/dL 3.4-5.0 [facility] ALP [Catalytic activity/Vol] 127 U/L 46-116 [facility] ALT [Catalytic activity/Vol] 19 U/L 14-59 [facility] AST [Catalytic activity/Vol] 15 U/L 15-37 [facility] Bilirubin [Mass/Vol] 0.2 mg/dL 0.2-1.0 [facility] Calcium [Mass/Vol] 9.3 mg/dL 8.5-10.1 [facility] Chloride [Moles/Vol] 104 mmol/L 98-107 [facility] CO2 [Moles/Vol] 22.6 mmol/L 21.0-32.0 [facility] Creatinine [Mass/Vol] 1.57 mg/dL 0.55-1.02 [facility] GFR/1.73 sq M.predicted MDRD (S/P/Bld) [Vol rate/Area] 42 mL/min/{1.73_m2} >=60 [facility] Glucose [Mass/Vol] 167 mg/dL 74-106 [facility] Magnesium [Mass/Vol] 1.9 mg/dL 1.8-2.4 [facility] Potassium [Moles/Vol] 4.7 mmol/L 3.5-5.1 [facility] Protein [Mass/Vol] 7.6 g/dL 6.4-8.2 [facility] Sodium [Moles/Vol] 141 mmol/L 136-145 [facility] Urate [Mass/Vol] 5.9 mg/dL 2.6-6.0 [facility] Urea nitrogen [Mass/Vol] 30.0 mg/dL 7.0-18.0 [facility] Urea nitrogen/Creatinine [Mass ratio] 19.1 mg/mg [facility] Bilirubin Ql (U) Negative NEGATIVE [facility] Glucose (U) [Mass/Vol] Negative NEGATIVE [facility] Ketones Ql (U) Negative NEGATIVE [facility] pH (U) 5.5 [pH] 5.0-9.0 [facility] Specific gravity (U) [Rel density] 1.025 1.005-1.025 [facility] Urobilinogen Qn (U) 0.2 {Nikolas'U}/dL 0.2-1.0 [facility] Laboratory - Specimen inform ationon 11-05-2023 Appearance (U) CLEAR CLEAR [facility] Color (U) LT. YELLOW YELLOW [facility] Laboratory - Urinalysison Leukocyte esterase Test strip Ql (U) Negative NEGATIVE [facility] Nitrite Ql (U) Negative NEGATIVE [facility] Protein (U) [Mass/Vol] 11.4 mg/dL <=11.9 [facility] Protein Ql (U) Negative NEG/TRACE [facility] Leukocytes [#/volume] correc sabrina for nucleated erythrocytes in Blood by Automated counon 11-05-2023 WBC corrected for nucl RBC Auto (Bld) [#/Vol] 7.5 10 3/uL 4.0-11.0 [facility] MCH Auto (RBC) [Entitic mass ]on 11-05-2023 MCH (RBC) [Entitic mass] 30.7 pg 26.7-34.0 [facility] MCHC Auto (RBC) [Mass/Vol]on 11-05-2023 MCHC (RBC) [Mass/Vol] 33.1 g/dL 29.9-35.2 [facility] MCV Auto (RBC) [Entitic vol] on 11-05-2023 MCV (RBC) [Entitic vol] 92.9 fL 81.0-99.0 [facility] No Panel Informationon 11-04 25-Hydroxy Vitamin D Total 36.3 ng/mL [facility] Comment on above: <20 ng/mL Vit D defi cient20-<30 ng/mL Vit D ydzydvxeupji96-264 ng/mL Vit D sufficient>100 ng/mL Potential Toxicity Parathyroid Hormone (Intact) 53 pg/mL 15-65 [facility] Comment on above: Performed at: - [address] [id number] Director: Peng Wing PhD, Phone: [phone] Phosphorus Level 4.0 mg/dL 2.6-4.7 [facility] Urine Occult Blood Negative NEGATIVE [facility] Urine Random Creatinine 132.61 mg/dL 20.00-300.00 [facility] Platelet mean volume Auto (B ld) [Entitic vol]on 11-05-2023 Platelet mean volume (Bld) [Entitic vol] 9.3 fL 9.5-13.5 [facility] Platelets Auto (Bld) [#/Vol] on 11-05-2023 Platelets (Bld) [#/Vol] 273 10 3/uL 150-450 [facility] RBC Auto (Bld) [#/Vol]on RBC (Bld) [#/Vol] 3.94 10 6/uL 4.20-5.40 [facility] Serum or plasma albumin/glob ulin mass ratioon 11-05-2023 Albumin/Globulin [Mass ratio] 1.1 {ratio} [facility] Serum or plasma anion gap de terminationon 11-05-2023 Anion gap [Moles/Vol] 19.1 mmol/L [facility] Urine protein/creatinine rat ioon 11-05-2023 Protein/Creatinine (U) [Ratio] 0.09 [facility] GLYCOHEMOGLOBIN A1Con 2022 ADA RECOMMENDATION SEE BELOW Normal [facility] Comment on above: Result Comment: ADA RECOMMENDED LIMIT 4.0 - 6.0 ADA THERAPEUTIC TARGET < 7.0 ACTION SUGGESTED > 7.0 Performed By: #### A 1C #### [facility] [address] [place] [address] Dr. Mitesh Anthony Glucose [Mass/Vol] 137 mg/dL Normal [facility] Comment on above: Performed By: #### A 1C #### [facility] [address] [place] [address] Dr. Mitesh Anthony HbA1c (Bld) [Mass fraction] 6.4 % Critically high 4.5-6.2 [facility] Comment on above: Performed By: #### A 1C #### [facility] [address] [place] [address] Dr. Mitesh Anthony MICROALBUMIN, RAND URon 07-27 mALB 5.7 mg/L Normal <=30.0 [facility] Comment on above: Performed By: #### M ALBR #### [facility] [address] [place] [address] Dr. Mitesh Anthony PROF 14(COMP METB)on 023 Albumin [Mass/Vol] 4.1 g/dL Normal 3.4-5.0 [facility] Comment on above: Performed By: #### T SHRFT4, CMP #### [facility] [address] [address] [address] Mitesh Anthony Albumin/Globulin [Mass ratio] 1.1 {ratio} Normal [facility] Comment on above: Performed By: #### T [id number], CMP #### [facility] [address] [address] [address] Mitesh Anthony ALP [Catalytic activity/Vol] 89 U/L Normal 46-116 [facility] Comment on above: Performed By: #### T ISAIAS4, CMP #### [facility] [address] [address] [address] Mitesh Anthony ALT [Catalytic activity/Vol] 26 U/L Normal 14-59 [facility] Comment on above: Performed By: #### T ISAIAS4, CMP #### [facility] [address] [address] [address] Mitesh Anthony Anion gap [Moles/Vol] 11.3 mmol/L Normal [facility] Comment on above: Performed By: #### T ISAIAS4, CMP #### [facility] [address] [address] [address] Mitesh Anthony AST [Catalytic activity/Vol] 18 U/L Normal 15-37 [facility] Comment on above: Performed By: #### T ISAIAS4, CMP #### [facility] [address] [address] [address] Mitesh Anthony Bilirubin [Mass/Vol] 0.2 mg/dL Normal 0.2-1.0 [facility] Comment on above: Performed By: #### T ISAIAS4, CMP #### [facility] [address] [address] [address] Mitesh Anthony Calcium [Mass/Vol] 9.4 mg/dL Normal 8.5-10.1 [facility] Comment on above: Performed By: #### T ISAIAS4, CMP #### [facility] [address] [address] [address] Mitesh Anthony Chloride [Moles/Vol] 106 mmol/L Normal 98-107 [facility] Comment on above: Performed By: #### T ISAIAS4, CMP #### [facility] [address] [address] [address] Mitesh Anthony CO2 [Moles/Vol] 30.3 mmol/L Normal 21.0-32.[address] [facility] Comment on above: Performed By: #### T SHRFT4, CMP #### [facility] [address] [address] [address] Mitesh Anthony Creatinine [Mass/Vol] 1.37 mg/dL Critically high 0.55-1.02 [facility] Comment on above: Performed By: #### T SHRFT4, CMP #### [facility] [address] [address] [address] Mitesh Anthony EGFR-AF PANAMANIAN 50 mL/min/1.73m2 Critically low >=60 [facility] Comment on above: Performed By: #### T SHRFT4, CMP #### [facility] [address] [address] [address] Mitesh Anthony EGFR-NON AF PANAMANIAN 41 mL/min/1.73m2 Critically low >=60 [facility] Comment on above: Performed By: #### T SHRFT4, CMP #### [facility] [address] [address] [address] Mitesh Anthony Globulin (S) [Mass/Vol] 3.6 g/dL Normal [facility] Comment on above: Performed By: #### T SHRFT4, CMP #### [facility] [address] [address] [address] Mitesh Anthony Glucose [Mass/Vol] 97 mg/dL Normal 74-106 [facility] Comment on above: Performed By: #### T SHRFT4, CMP #### [facility] [address] [address] [address] Mitesh Anthony Potassium [Moles/Vol] 3.6 mmol/L Normal 3.5-5.1 [facility] Comment on above: Performed By: #### T SHRFT4, CMP #### [facility] [address] [address] [address] Mitesh Anthony Protein [Mass/Vol] 7.7 g/dL Normal 6.4-8.2 [facility] Comment on above: Performed By: #### T SHRFT4, CMP #### [facility] [address] [place] [address] Dr. Mitesh Anthony Sodium [Moles/Vol] 144 mmol/L Normal 136-145 [facility] Comment on above: Performed By: #### T SHRFT4, CMP #### [facility] [address] [place] [address] Dr. Mitesh Anthony Urea nitrogen [Mass/Vol] 29.0 mg/dL Critically high 7.0-18.0 [facility] Comment on above: Performed By: #### T SHRFT4, CMP #### [facility] [address] [place] [address] Dr. Mitesh Anthony Urea nitrogen/Creatinine [Mass ratio] 21.2 mg/mg Normal [facility] Comment on above: Performed By: #### T [id number], CMP #### [facility] [address] [place] [address] Dr. Mitesh Anthony TSH W/ REFLEX TO FT4on 08-17 TSH 1.449 uIU/mL Normal 0.358-3.740 [facility] Comment on above: Performed By: #### L IPID, CMP #### [facility] [address] [place] [address] Dr. Mitesh Anthony OUTSIDE SURG PATH SLIDE REVI EWon 08-07-2022 CASE REPORT Normal [facility] Comment on above: Order Comment: Speci men Type: SLIDE Ordering Facility: [facility] Review Address: , , Result Comment: Surg ical Pathology Report Case: [id number] Authorizing Provider: Kaden Golden MD Collected: 08/07/2022 09:12 AM Ordering Location: [facility] Main Received: 08/07/2022 09:15 AM Pathologist: Albaro Murguia MD Specimen: SLIDE(S), 18 SLIDES, [id number] Performed By: #### L [id number] #### [facility] CLIA [id number] [address] [place] [address] WILL CLINICAL HISTORY Prior core biopsy diagnosis of ADH. Normal [facility] Comment on above: Order Comment: Speci evelyn Type: SLIDE Ordering Facility: [facility] Review Address: , , Performed By: #### L [id number] #### [facility] CLIA [id number] [address] [place] [address] OF [facility] DIAGNOSIS COMMENT Normal [facility] Comment on above: Order Comment: Speci evelyn Type: SLIDE Ordering Facility: [facility] Review Address: , , Result Comment: The overall degree of atypia falls short of an unequivocal diagnosis of ductal carcinoma in-situ (DCIS). Performed By: #### L [id number] #### [facility] CLIA [id number] [address] [place] [address] FINAL DIAGNOSIS Normal [facility] Comment on above: Order Comment: Raimundo rivas Type: SLIDE Ordering Facility: [facility] Review Address: , , Result Comment: Lois crawley, left, at 3:00, excisional biopsy ([id number]; 07/12/2022): ---Atypical intraductal proliferation predominantly involving a fibroadenomatoid nodule. ---Background breast with previous biopsy site. ---Please see comment. Performed By: #### L [id number] #### [facility] CLIA [id number] [address] [place] [address] FINAL PERFORMING LAB Normal [facility] Comment on above: Order Comment: Raimundo rivas Type: SLIDE Ordering Facility: [facility] Review Address: , , Result Comment: Diag nostic interpretation performed at [facility], [address] [place] [address] CLIA# [id number] Behavior Interventionist: Akshat Nguyen M.D. Performed By: #### L [id number] #### [facility] CLIA [id number] [address] [place] [address] WILL Consultation Noteon 08-04-19 Consultation Note [id number] D:127 Normal [facility] CNOVSPon 08-02-2022 CNOVSP Visit (SP) Office ([place]) LINDSEY OPLO ([id number]) 1970 F Date Time Provider Department 08/02/22 3:30 PM KADEN GOLDEN During your visit today, we recorded the following information about you: Temperature Pulse Respiration Blood pressure 97.5 degrees 74/minute 16/minute 136/85 Weight Height 32.2 kg 1.321 m Kaden Golden MD 08/02/2022 4:01 PM Signed PATIENT NAME: Lindsey Polo CLINIC NO.: [id number] ATTENDING PHYSICIAN: Kaden Golden MD DATE OF SERVICE: August 02, [address] Christopher Valerio thank you for referring Miss Lindsey Polo for an opinion regarding ADH. CHIEF COMPLAINT: I have a breat mass that was taken HPI: Lindsey Polo is a 51 year old year old female with H sig for intellectual disability, lives with her [...] within a fibroadenoma. She subsequently saw Dr. Valerio and L breast Lumpectomy 07/12/2022 with atypical [...] MONOP, ABSMONO, EOSINP, ABSEOSIN, BASOP, ABSBASO PATH: Kasi Brest Lumpectomy 06/2022: IMAGING: Mammogram and US 04/2022: ASSESSMENT AND PLAN: Lindsey Polo is a 51 year old year old (more content not included)... Normal [facility] [place]ira 08-02-2022 [facility] LINDSEY POLO ([id number]) 1970 F Date Time Provider Department 08/02/22 KADEN GOLDEN [facility] During your visit today, we recorded the following information about you: Luis Enrique Szymanski 08/02/2022 3:50 PM Signed Request sent to [facility] General pathology to send to [facility] for [...] Status:Closed by LUIS ENRIQUE SZYMANSKI on 08/02/22 [facility] Ambulatory Visit Summaryon 0 07-21-2022 Ambulatory Visit Summary CHRISTLINDSEY :1970 Visit Date:07/21/2022 Ambulatory Visit Instructions Your Diagnosis 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 What to do next Someone Will Contact You Regarding These Appointments [facility] External Ambulatory Referral, Geographic proximity, Oncology, [place] [facility], or [facility] Cancer [facility], [facility], 07/21/22 13:48:00 EST, Ductal carcinoma in situ [...] Every day Unchanged potassium chloride (Potassium Chloride (Gct-Gbtt-Ain M20) 20 mEq oral tablet, extended release) [...] no longer receiving treatment for. Hypokalemia Normal [facility] General Surgery Office/Clini c Noteon 07-21-2022 General [...] estrogen receptor modulator; call with problems/questions. Ordered: [facility] External Ambulatory Referral 2. Fibroadenoma of left [...] mcg= 1 tab(s), Oral, Daily Potassium Chloride (Vtw-Iyup-Sbf M20) 20 mEq oral tablet, extended release, [...] [id number] vax 09/11/2020 Recorded 2022-06-20: [id number] Normal [facility] Comment on above: Result Comment: Elec tronically Signed By: TEODORO MALIK, Christopher Ragland\Date and Time Signed: 07/21/22 15:46 EST RAD - Ultrasound Reporton RAD - Ultrasound Report [id number] D:127 Normal [facility] US GUIDE LOCAL BREAST LTon 0 07-20-2022 US GUIDE LOCAL BREAST LT Begin Addendum #1 COLLECTED DATE/TIME: 07/12/2022 12:00 EST Final Diagnosis Report for [facility] [place] LEFT BREAST MASS 3 O'CLOCK POSITION; [...] IMPRESSION: 1. Technically successful hookwire localization. Normal [facility] Pathology Noteon 07-19-2022 Pathology Note [id number] D:127 Normal [facility] Operative Reporton Operative Report [id number] D:127 Normal [facility] RAD - Ultrasound Reporton RAD - Ultrasound Report [id number] D:127 Normal [facility] US BREAST SPECIMENon 023 US BREAST SPECIMEN EXAM: US BREAST SPECIMEN HISTORY: Infiltrating duct carcinoma of breast COMPARISON: Ultrasound breast biopsy 06/05/2022, ultrasound-guided wire localization 07/12/2022 TECHNIQUE: Ultrasound evaluation of surgical specimen. FINDINGS: Biopsy marker clip is present within the small soft tissue specimen. IMPRESSION: 1. Biopsy marker clip is present within the surgical specimen. Electronically authenticated by: SHANI THOMAS Date: 2022-07-12 13:51 Normal [facility] ECG 12-Leadon 07-05-2022 ECG 12-Lead [id number]#1.00C D:127 Normal [facility] Lab Reportson 07-05-2022 Lab Reports [id number]#1.00C D:127 Normal [facility] PROF CHEM 8 (BAS METB)on Anion gap [Moles/Vol] 13.7 mmol/L Normal [facility] Comment on above: Performed By: #### B MP #### [facility] [address] [place] [address] Dr. Mitesh Anthony Calcium [Mass/Vol] 9.6 mg/dL Normal 8.5-10.1 [facility] Comment on above: Performed By: #### B MP #### [facility] [address] [address] [address] Mitesh Anthony Chloride [Moles/Vol] 108 mmol/L Critically high 98-107 [facility] Comment on above: Performed By: #### B MP #### [facility] [address] [place] [address] Dr. Mitesh Anthony CO2 [Moles/Vol] 27.5 mmol/L Normal 21.0-32.[address] [facility] Comment on above: Performed By: #### B MP #### [facility] [address] [address] [address] Mitesh Anthony Creatinine [Mass/Vol] 1.36 mg/dL Critically high 0.55-1.02 [facility] Comment on above: Performed By: #### B MP #### [facility] [address] [address] [address] Mitesh Anthony EGFR-AF PANAMANIAN 50 mL/min/1.73m2 Critically low >=60 [facility] Comment on above: Performed By: #### B MP #### [facility] [address] [address] [address] Mitesh Anthony EGFR-NON AF PANAMANIAN 41 mL/min/1.73m2 Critically low >=60 [facility] Comment on above: Performed By: #### B MP #### [facility] [address] [address] [address] Mitesh Anthony Glucose [Mass/Vol] 132 mg/dL Critically high 74-106 [facility] Comment on above: Performed By: #### B MP #### [facility] [address] [address] [address] Mitesh Anthony Potassium [Moles/Vol] 4.2 mmol/L Normal 3.5-5.1 [facility] Comment on above: Performed By: #### B MP #### [facility] [address] [address] [address] Mitesh Anthony Sodium [Moles/Vol] 145 mmol/L Normal 136-145 [facility] Comment on above: Performed By: #### B MP #### [facility] [address] [address] [address] Mitesh Anthony Urea nitrogen [Mass/Vol] 32.0 mg/dL Critically high 7.0-18.0 [facility] Comment on above: Performed By: #### B MP #### [facility] [address] [address] [address] Mitesh Anthony Urea nitrogen/Creatinine [Mass ratio] 23.5 mg/mg Normal [facility] Comment on above: Performed By: #### B MP #### [facility] [address] [place], [place] [address] Dr. Mitesh Anthony Consent for Procedure/Surger yon 06-23-2022 Consent for Procedure/Surgery [id number]#1.00C D:127 Normal [facility] Outside Mammographyon 2022 Outside Mammography [id number]#1.00C D:127 Normal [facility] Outside Mammography [id number]#1.00C D:127 Normal [facility] Pathology Noteon 06-19-2022 Pathology Note [id number]#1.00C D:127 Normal [facility] RAD - Ultrasound Reporton RAD - Ultrasound Report [id number]#1.00C D:127 Normal [facility] US VAC ASST BX BREAST LT W C LIPon 06-16-2022 US VAC ASST BX BREAST LT W CLIP Begin Addendum #1 COLLECTED DATE/TIME: 06/05/2022 14:29 EST Final Diagnosis Report for [facility] [place], [place] LEFT BREAST 2 O'CLOCK MASS, ULTRASOUND-GUIDED [...] after pathology results are available. Normal [facility] MAMMO POST BIOPSY LEFTon MAMMO POST BIOPSY LEFT Patient: LINDSEY POLO Exam Date: 06/05/2022 : 1970 Gender:F Ordering : DR JANIE TOSCANO . Admission #: [id number] Family : Order #: [id number] CLICK HERE TO VIEW EXAM RADIOLOGY REPORT [...] post biopsy findings. RECOMMENDATIONS: Dictated by: Shani Thomas M.D. on 06/05/2022 at 15:58 Approved by: Shani Thomas M.D. on 06/05/2022 at 15:59 Normal [facility] MG MAMM LT DIAG FUon 022 MG MAMM LT DIAG FU Patient: LINDSEY POLO Exam Date: 05/18/2022 : 1970 Gender:F Ordering : DR JANIE TOSCANO . Admission #: [id number] Family : Order #: [id number] CLICK HERE TO VIEW EXAM RADIOLOGY REPORT [...] Treatments None Family Cancers None LOCATION: [facility] BREAST COMPOSITION: Heterogeneously dense,which may obscure small [...] LUMP SHOULD BE BIOPSIED. Dictated by: Shani Thomas M.D. on 05/18/2022 at 14:19 Approved by: Shani Thomas M.D. on 05/18/2022 at 14:31 Normal [facility] US BREAST LEFT LIMITEDon US BREAST LEFT LIMITED Patient: LINDSEY POLO Exam Date: 05/18/2022 : 1970 Gender:F Ordering : DR JANIE TOSCANO . Admission #: [id number] Family : Order #: [id number] CLICK HERE TO VIEW EXAM RADIOLOGY REPORT [...] Treatments None Family Cancers None LOCATION: [facility] BREAST COMPOSITION: Heterogeneously dense,which may obscure small [...] LUMP SHOULD BE BIOPSIED. Dictated by: Shani Thomas M.D. on 05/18/2022 at 14:19 Approved by: Shani Thomas M.D. on 05/18/2022 at 14:31 Normal [facility] GLYCOHEMOGLOBIN A1Con 2021 ADA RECOMMENDATION SEE BELOW Normal [facility] Comment on above: Result Comment: ADA RECOMMENDED LIMIT 4.0 - 6.0 ADA THERAPEUTIC TARGET < 7.0 ACTION SUGGESTED > 7.0 Performed By: #### A 1C #### [facility] [address] [place] [address] Dr. Mitesh Anthony Glucose [Mass/Vol] 143 mg/dL Normal [facility] Comment on above: Performed By: #### A 1C #### [facility] [address] [place] [address] Dr. Mitesh Anthony HbA1c (Bld) [Mass fraction] 6.6 % Critically high 4.5-6.2 [facility] Comment on above: Performed By: #### A 1C #### [facility] [address] [place] [address] Dr. Mitesh Anthony LIPID PROFILEon 05-16-2022 CHOL-HDL RATIO NORM SEE BELOW Normal [facility] Comment on above: Result Comment: 3.3 - 4.4 LOW RISK 4.4 - 7.1 AVERAGE RISK 7.1 - 11.0 MODERATE RISK >11.0 HIGH RISK Performed By: #### L IPID, CMP #### [facility] [address] [place] [address] Dr. Mitesh Anthony Cholesterol [Mass/Vol] 234 mg/dL Critically high <=200 [facility] Comment on above: Performed By: #### L IPID, CMP #### [facility] [address] [place] [address] Dr. Mitesh Anthony Cholesterol in HDL [Mass/Vol] 108 mg/dL Critically high 40-60 [facility] Comment on above: Performed By: #### L IPID, CMP #### [facility] [address] [place] [address] Dr. Mitesh Anthony Cholesterol in LDL [Mass/Vol] 111.2 mg/dL Normal [facility] Comment on above: Performed By: #### L IPID, CMP #### [facility] [address] [address] [address] Mitesh Anthony Cholesterol.total/Cho lesterol in HDL [Mass ratio] 2.2 {ratio} Normal [facility] Comment on above: Performed By: #### L IPID, CMP #### [facility] [address] [address] [address] Mitesh Anthony HDL NORMAL > or = 60 mg/dl - LO W CARDIOVASCULAR RISK <40 mg/dl - HIGH CARDIOVASCULAR RISK Normal [facility] Comment on above: Performed By: #### L IPID, CMP #### [facility] [address] [place] [address] Dr. Mitesh Anthony LDL CALC NORMAL SEE BELOW Normal [facility] Comment on above: Result Comment: <100 mg/dl OPTIMAL 100 - 129 mg/dl NEAR OR ABOVE OPTIMAL 130 - 159 mg/dl BORDERLINE HIGH 160 - 189 mg/dl HIGH >190 mg/dl VERY HIGH Performed By: #### L IPID, CMP #### [facility] [address] [address] [address] Mitesh Anthony Triglyceride [Mass/Vol] 74 mg/dL Normal <=150 [facility] Comment on above: Performed By: #### L IPID, CMP #### [facility] [address] [address] [address] Mitesh Anthony VLDL CALC 14.8 mg/dL Normal [facility] Comment on above: Performed By: #### L IPID, CMP #### [facility] [address] [address] [address] Mitesh Anthony PROF 14(COMP METB)on 022 Albumin [Mass/Vol] 4.2 g/dL Normal 3.4-5.0 [facility] Comment on above: Performed By: #### L IPID, CMP #### [facility] [address] [address] [address] Mitesh Anthony Albumin/Globulin [Mass ratio] 1.2 {ratio} Normal [facility] Comment on above: Performed By: #### L IPID, CMP #### [facility] [address] [address] [address] Mitesh Anthony ALP [Catalytic activity/Vol] 114 U/L Normal 46-116 [facility] Comment on above: Performed By: #### L IPID, CMP #### [facility] [address] [address] [address] Mitesh Anthony ALT [Catalytic activity/Vol] 39 U/L Normal 14-59 [facility] Comment on above: Performed By: #### L IPID, CMP #### [facility] [address] [place] [address] Dr. Mitesh Anthony Anion gap [Moles/Vol] 12.2 mmol/L Normal [facility] Comment on above: Performed By: #### L IPID, CMP #### [facility] [address] [place] [address] Dr. Mitesh Anthony AST [Catalytic activity/Vol] 26 U/L Normal 15-37 [facility] Comment on above: Performed By: #### L IPID, CMP #### [facility] [address] [place] [address] Dr. Mitesh Anthony Bilirubin [Mass/Vol] 0.4 mg/dL Normal 0.2-1.0 [facility] Comment on above: Performed By: #### L IPID, CMP #### [facility] [address] [place] [address] Dr. Mitesh Anthony Calcium [Mass/Vol] 9.4 mg/dL Normal 8.5-10.1 [facility] Comment on above: Performed By: #### L IPID, CMP #### [facility] [address] [place] [address] Dr. Mitesh Anthony Chloride [Moles/Vol] 102 mmol/L Normal 98-107 [facility] Comment on above: Performed By: #### L IPID, CMP #### [facility] [address] [place] [address] Dr. Mitesh Anthony CO2 [Moles/Vol] 29.5 mmol/L Normal 21.0-32.[address] [facility] Comment on above: Performed By: #### L IPID, CMP #### [facility] [address] [place] [address] Dr. Mitesh Anthony Creatinine [Mass/Vol] 1.29 mg/dL Critically high 0.55-1.02 [facility] Comment on above: Performed By: #### L IPID, CMP #### [facility] [address] [place] [address] Dr. Mitesh Anthony EGFR-AF PANAMANIAN 53 mL/min/1.73m2 Critically low >=60 [facility] Comment on above: Performed By: #### L IPID, CMP #### [facility] [address] [place] [address] Dr. Mitesh Anthony EGFR-NON AF PANAMANIAN 44 mL/min/1.73m2 Critically low >=60 [facility] Comment on above: Performed By: #### L IPID, CMP #### [facility] [address] [place] [address] Dr. Mitesh Anthony Globulin (S) [Mass/Vol] 3.5 g/dL Normal [facility] Comment on above: Performed By: #### L IPID, CMP #### [facility] [address] [place] [address] Dr. Mitesh Anthony Glucose [Mass/Vol] 113 mg/dL Critically high 74-106 [facility] Comment on above: Performed By: #### L IPID, CMP #### [facility] [address] [place] [address] Dr. Mitesh Anthony Potassium [Moles/Vol] 3.7 mmol/L Normal 3.5-5.1 [facility] Comment on above: Performed By: #### L IPID, CMP #### [facility] [address] [place] [address] Dr. Mitesh Anthony Protein [Mass/Vol] 7.7 g/dL Normal 6.4-8.2 [facility] Comment on above: Performed By: #### L IPID, CMP #### [facility] [address] [address] [address] Mitesh Anthony Sodium [Moles/Vol] 140 mmol/L Normal 136-145 [facility] Comment on above: Performed By: #### L IPID, CMP #### [facility] [address] [address] [address] Mitesh Anthony Urea nitrogen [Mass/Vol] 23.0 mg/dL Critically high 7.0-18.0 [facility] Comment on above: Performed By: #### L IPID, CMP #### [facility] [address] [address] [address] Mitesh Anthony Urea nitrogen/Creatinine [Mass ratio] 17.8 mg/mg Normal [facility] Comment on above: Performed By: #### L IPID, CMP #### [facility] [address] [address] [address] Mitesh Anthony MG MAMM SCREEN 3D JULIANNA CADon 04-24-2022 MG MAMM SCREEN 3D JULIANNA CAD Patient: LINDSEY POLO Exam Date: 04/24/2022 : 1970 Gender:F Ordering : DR JANIE TOSCANO . Admission #: [id number] Family : Order #: [id number] CLICK HERE TO VIEW EXAM RADIOLOGY REPORT PROCEDURE: MAMMOGRAM SCREENING 3D BILATERAL CAD COMPARISON: None. INDICATIONS: Screening mammography Calculator Name NCI Breast Cancer Risk Assessment Tool 5 Year Breast Cancer Risk Not Reported. Lifetime Breast Cancer Risk Not Reported. Personal Breast Cancer No Personal Ovarian Cancer No Treatments None Family Cancers None LOCATION: [facility] BREAST COMPOSITION: Heterogeneously dense,which may obscure small [...] LUMP SHOULD BE BIOPSIED. Dictated by: Shani Thomas M.D. on 04/25/2022 at 12:52 Approved by: Shani Thomas M.D. on 04/25/2022 at 13:20 Normal [facility] US SINGLE QUAD RT UPPERon US SINGLE [...] for patient's symptoms. Electronically authenticated by: SHANI THOMAS Date: 2022-04-24 19:32 Normal [facility] XR DEXA BONE DENSITYon 04-24 XR DEXA BONE DENSITY EXAMINATION: XR DEX A BONE DENSITY, 04/24/2022 10:56 AM EST HISTORY: [...] High Fracture Risk Electronically authenticated by: SHANI THOMAS Date: 2022-04-24 16:36 Normal [facility] Outside Colonoscopyon 2021 Outside Colonoscopy [id number]#1.00C D:127 Normal [facility] Reminderson 04-13-2022 Reminders - From: Natacha Perea LPN To: GSN - Clinical; Sent: 04/13/2022 15:39:57 EST Show up: 03/12/2032 07:00:00 EDT Subject: colonoscopy recall Due Date/Time: 04/12/2032 07:00:00 EST Reminder/Recall Patient is due for screening colonoscopy 04/12/2032. Normal [facility] Lab Reportson 04-10-2022 Lab Reports [id number]#1.00C D:127 Normal [facility] Covid-19 PCR ([facility])on 03-28 SARS-CoV-2 (COVID-19) RNA RITCHIE+probe Ql (Unsp spec) Not detected Normal NOT DETECTED [facility] Comment on above: Result Comment: This test is not yet approved or cleared by the [place] FDA. When there are no FDA-approved or cleared tests available, and other criteria are met, FDA can make tests available under an emergency access mechanism called an Emergency Use Authorization (EUA). The EUA for this test is supported by the Barrel Inspector of Health and Human Service's (HHS's) declaration [...] Performed By: #### L IPID, CMP #### [facility] [address] [place] [address] Dr. Mitesh Anthony Pre-Certification Formon Pre-Certification Form [id number]#1.00 CD:127 Normal [facility] Consent for Procedure/Surger yon 03-09-2022 Consent for Procedure/Surgery [id number]#1.00C D:127 Normal [facility] Ambulatory Visit Summaryon 1 Ambulatory Visit Summary LINDSEY POLO :1970 Visit Date:03/08/2022 Ambulatory Visit Instructions Your Care Team Attending Physician - Christopher VALERIO MD Primary Care Physician - BERE, Zurdo LEONARDO BOSCH This Is Your Medications List Contact prescribing physician if questions or concerns amlodipine (amLODIPine 10 mg Tab) hydrochlorothiazide-lis inopril (hydrochlorothiazide-li sinopril 25 mg-20 mg Tab) levothyroxine (levothyroxine 25 mcg (0.025 mg) Tab) potassium chloride (Potassium Chloride (Zxt-Upae-Dwc M20) 20 mEq oral tablet, extended release) [...] or concerns Unchanged potassium chloride (Potassium Chloride (Ian-Dxaw-Ahf M20) 20 mEq oral tablet, extended release) [...] no longer receiving treatment for. Hypokalemia Normal [facility] PAP ACOG PANEL 2: 30 to 65on 03-08-2022 . . Normal [facility] Comment on above: Result Comment: Perf ormed at: WB Performed By: #### [id number] #### [facility] [address] [place] [address] Dr. Mitesh Anthony Age Gdln ACOG Testing 30-65 [facility] Comment on above: Performed By: #### [id number] #### [facility] [address] [place] [address] Dr. Mitesh Anthony DIAGNOSIS: Comment [facility] Comment on above: Result Comment: NEGA TIVE FOR INTRAEPITHELIAL LESION OR MALIGNANCY. Performed at: WB Performed By: #### [id number] #### [facility] [address] [place] [address] Dr. Mitesh Anthony HPV Aptima Negative Normal [facility] Comment on above: Result Comment: This nucleic acid amplification test detects fourteen high-risk HPV types (16,18,31,33,35,39,45,51,52,56,58,59,66,68) without differentiation. Performed at: =G Performed By: #### [id number] #### [facility] [address] [place] [address] Dr. Mitesh Anthony Methodology: Comment [facility] Comment on above: Result Comment: This liquid based ThinPrep(R) pap test was screened with the use of an image guided system. Performed at: WB Performed By: #### [id number] #### [facility] [address] [place] [address] Dr. Mitesh Anthony Note: Comment [facility] Comment on above: Result Comment: The Pap smear is a screening test designed to aid in the detection of premalignant and malignant conditions of the uterine cervix. It is not a diagnostic procedure and should not be used as the sole means of detecting cervical cancer. Both false-positive and false-negative reports do occur. . Performed at: WB Performed By: #### [id number] #### [facility] [address] [place] [address] Dr. Mitesh Anthony Performed by: Comment Normal [facility] Comment on above: Result Comment: Scot t W Dreger, Drug Safety Assistant (ASCP) Performed at: WB Performed By: #### [id number] #### [facility] [address] [place] [address] Dr. Mitesh Anthony Specimen adequacy: Comment Normal [facility] Comment on above: Result Comment: Sati sfactory for evaluation. Endocervical and/or squamous metaplastic cells (endocervical component) are present. Performed at: WB Performed By: #### [id number] #### [facility] [address] [place] [address] Dr. Mitesh Anthony THYROID PEROXIDASE ABon 01-27 Thyroid Peroxidase (TPO) Ab 8 IU/mL Normal 0-34 [facility] Comment on above: Performed By: #### T POAB #### [facility] [address] [place] [address] Dr. Mitesh Anthony HEPATITIS C ANTIBODYon 02-17 Hep C Virus Ab <0.1 Normal 0.0-0.9 [facility] Comment on above: Result Comment: Nega tive: < 0.8 Indeterminate: 0.8 - 0.9 Positive: > 0.9 . HCV antibody alone does not differentiate between previous resolved infection and active infection. The CDC and current clinical guidelines recommend that a positive HCV antibody result be followed up with an HCV RNA test to support the diagnosis of acute HCV infection. [facility] offers Hepatitis C Virus (HCV) RNA, Diagnosis, RITCHIE ([id number]) and Hepatitis C Virus (HCV) Antibody with reflex to Quantitative Real-time PCR ([id number]). Performed By: #### L IPID, CMP #### [facility] [address] [place] [address] Dr. Mitesh Anthony Physician Referralon 022 Physician Referral [id number]#1.00C D:127 Normal [facility] CBC AUTO DIFFon 02-16-2022 BASO # 0.0 103/ul Normal 0.0-0.1 [facility] Comment on above: Performed By: #### L IPID, CMP #### [facility] [address] [place] [address] Dr. Mitesh Anthony Basophils/100 WBC (Bld) 0.5 % Normal 0.2-2.0 [facility] Comment on above: Performed By: #### L IPID, CMP #### [facility] [address] [place] [address] Dr. Mitesh Anthony EO # 0.1 103/ul Normal 0.0-0.7 [facility] Comment on above: Performed By: #### L IPID, CMP #### [facility] [address] [place] [address] Dr. Mitesh Anthony Eosinophils/100 WBC (Bld) 2.1 % Normal 0.9-7.0 [facility] Comment on above: Performed By: #### L IPID, CMP #### [facility] [address] [place] [address] Dr. Mitesh Anthony Erythrocyte distribution width (RBC) [Ratio] 14.4 % Normal 11.0-15.0 [facility] Comment on above: Performed By: #### L IPID, CMP #### [facility] [address] [place] [address] Dr. Mitesh Anthony Hematocrit (Bld) [Volume fraction] 36.1 % Normal 36.0-48.0 [facility] Comment on above: Performed By: #### L IPID, CMP #### [facility] [address] [place] [address] Dr. Mitesh Anthony Hemoglobin (Bld) [Mass/Vol] 11.7 g/dL Critically low 12.0-16.0 [facility] Comment on above: Performed By: #### L IPID, CMP #### [facility] [address] [place] [address] Dr. Mitesh Anthony IG # 0.01 10e3/ul Normal 0.00-0.03 [facility] Comment on above: Performed By: #### L IPID, CMP #### [facility] [address] [place] [address] Dr. Mitesh Anthony IG % 0.2 % Normal 0.0-0.5 [facility] Comment on above: Performed By: #### L IPID, CMP #### [facility] [address] [address] [address] Mitesh Anthony LYMPH # 1.7 103/ul Normal 1.2-3.8 [facility] Comment on above: Performed By: #### L IPID, CMP #### [facility] [address] [address] [address] Mitesh Anthony Lymphocytes/100 WBC (Bld) 29.1 % Normal 20.5-60.0 [facility] Comment on above: Performed By: #### L IPID, CMP #### [facility] [address] [place] [address] Dr. Mitesh Anthony MANUAL DIFF REQ NO Normal [facility] Comment on above: Performed By: #### L IPID, CMP #### [facility] [address] [place] [address] Dr. Mitesh Anthony MCH (RBC) [Entitic mass] 30.5 pg Normal 26.7-34.0 [facility] Comment on above: Performed By: #### L IPID, CMP #### [facility] [address] [place] [address] Dr. Mitesh Anthony MCHC (RBC) [Mass/Vol] 32.4 g/dL Normal 29.9-35.2 [facility] Comment on above: Performed By: #### L IPID, CMP #### [facility] [address] [place] [address] Dr. Mitesh Anthony MCV (RBC) [Entitic vol] 94.0 fL Normal 81.0-99.0 [facility] Comment on above: Performed By: #### L IPID, CMP #### [facility] [address] [place] [address] Dr. Mitesh Anthony MONO # 0.5 103/ul Normal 0.3-0.8 [facility] Comment on above: Performed By: #### L IPID, CMP #### [facility] [address] [place] [address] Dr. Mitesh Anthony Monocytes/100 WBC (Bld) 8.0 % Normal 1.7-12.0 [facility] Comment on above: Performed By: #### L IPID, CMP #### [facility] [address] [address] [address] Mitesh Anthony NEUT # 3.5 103/ul Normal 1.4-6.5 [facility] Comment on above: Performed By: #### L IPID, CMP #### [facility] [address] [address] [address] Mitesh Anthony Neutrophils/100 WBC (Bld) 60.1 % Normal 43.0-75.0 [facility] Comment on above: Performed By: #### L IPID, CMP #### [facility] [address] [place] [address] Dr. Mitesh Anthony Platelet mean volume (Bld) [Entitic vol] 9.5 fL Normal 9.5-13.5 [facility] Comment on above: Performed By: #### L IPID, CMP #### [facility] [address] [place] [address] Dr. Mitesh Anthony PLT 260 103/ul Normal 150-450 [facility] Comment on above: Performed By: #### L IPID, CMP #### [facility] [address] [place] [address] Dr. Mitesh Anthony RBC 3.84 106/ul Critically low 4.20-5.40 [facility] Comment on above: Performed By: #### L IPID, CMP #### [facility] [address] [place] [address] Dr. Mitesh Anthnoy WBC 5.8 103/ul Normal 4.0-11.0 [facility] Comment on above: Performed By: #### L IPID, CMP #### [facility] [address] [place] [address] Dr. Mitesh Anthony FREE T4on 02-16-2022 Free T4 [Mass/Vol] 1.08 ng/dL Normal 0.76-1.46 [facility] Comment on above: Performed By: #### L IPID, CMP #### [facility] [address] [place] [address] Dr. Mitesh Anthony GLYCOHEMOGLOBIN A1Con 2021 ADA RECOMMENDATION SEE BELOW Normal [facility] Comment on above: Result Comment: ADA RECOMMENDED LIMIT 4.0 - 6.0 ADA THERAPEUTIC TARGET < 7.0 ACTION SUGGESTED > 7.0 Performed By: #### A 1C #### [facility] [address] [address] [address] Mitesh Anthony Glucose [Mass/Vol] 126 mg/dL Normal [facility] Comment on above: Performed By: #### A 1C #### [facility] [address] [address] [address] Mitesh Anthony HbA1c (Bld) [Mass fraction] 6.0 % Normal 4.5-6.2 [facility] Comment on above: Performed By: #### A 1C #### [facility] [address] [place] [address] Dr. Mitesh Anthony LIPID PROFILEon 02-16-2022 CHOL-HDL RATIO NORM SEE BELOW Normal [facility] Comment on above: Result Comment: 3.3 - 4.4 LOW RISK 4.4 - 7.1 AVERAGE RISK 7.1 - 11.0 MODERATE RISK >11.0 HIGH RISK Performed By: #### L IPID, CMP #### [facility] [address] [place] [address] Dr. Mitesh Anthony Cholesterol [Mass/Vol] 233 mg/dL Critically high <=200 [facility] Comment on above: Performed By: #### L IPID, CMP #### [facility] [address] [place] [address] Dr. Mitesh Anthony Cholesterol in HDL [Mass/Vol] 97 mg/dL Critically high 40-60 [facility] Comment on above: Performed By: #### L IPID, CMP #### [facility] [address] [address] [address] Mitesh Anthony Cholesterol in LDL [Mass/Vol] 113.0 mg/dL Normal [facility] Comment on above: Performed By: #### L IPID, CMP #### [facility] [address] [address] [address] Mitesh Anthony Cholesterol.total/Cho lesterol in HDL [Mass ratio] 2.4 {ratio} Normal [facility] Comment on above: Performed By: #### L IPID, CMP #### [facility] [address] [address] [address] Mitesh Anthony HDL NORMAL > or = 60 mg/dl - LO W CARDIOVASCULAR RISK <40 mg/dl - HIGH CARDIOVASCULAR RISK Normal [facility] Comment on above: Performed By: #### L IPID, CMP #### [facility] [address] [address] [address] Mitesh Anthony LDL CALC NORMAL SEE BELOW Normal [facility] Comment on above: Result Comment: <100 mg/dl OPTIMAL 100 - 129 mg/dl NEAR OR ABOVE OPTIMAL 130 - 159 mg/dl BORDERLINE HIGH 160 - 189 mg/dl HIGH >190 mg/dl VERY HIGH Performed By: #### L IPID, CMP #### [facility] [address] [place] [address] Dr. Mitesh Anthony Triglyceride [Mass/Vol] 115 mg/dL Normal <=150 [facility] Comment on above: Performed By: #### L IPID, CMP #### [facility] [address] [address] [address] Mitesh Anthony VLDL CALC 23.0 mg/dL Normal [facility] Comment on above: Performed By: #### L IPID, CMP #### [facility] [address] [place] [address] Dr. Mitesh Anthony PROF 14(COMP METB)on 022 Albumin [Mass/Vol] 4.3 g/dL Normal 3.4-5.0 [facility] Comment on above: Performed By: #### L IPID, CMP #### [facility] [address] [address] [address] Mitesh Anthony Albumin/Globulin [Mass ratio] 1.3 {ratio} Normal [facility] Comment on above: Performed By: #### L IPID, CMP #### [facility] [address] [address] [address] Mitesh Anthony ALP [Catalytic activity/Vol] 100 U/L Normal 46-116 [facility] Comment on above: Performed By: #### L IPID, CMP #### [facility] [address] [address] [address] Mitesh Anthony ALT [Catalytic activity/Vol] 110 U/L Critically high 14-59 [facility] Comment on above: Performed By: #### L IPID, CMP #### [facility] [address] [address] [address] Mitesh Anthony Anion gap [Moles/Vol] 12.4 mmol/L Normal [facility] Comment on above: Performed By: #### L IPID, CMP #### [facility] [address] [address] [address] Mitesh Anthony AST [Catalytic activity/Vol] 48 U/L Critically high 15-37 [facility] Comment on above: Performed By: #### L IPID, CMP #### [facility] [address] [address] [address] Mitesh Anthony Bilirubin [Mass/Vol] 0.4 mg/dL Normal 0.2-1.0 [facility] Comment on above: Performed By: #### L IPID, CMP #### [facility] [address] [address] [address] Mitesh Anthony Calcium [Mass/Vol] 9.3 mg/dL Normal 8.5-10.1 [facility] Comment on above: Performed By: #### L IPID, CMP #### [facility] [address] [address] [address] Mitesh Anthony Chloride [Moles/Vol] 106 mmol/L Normal 98-107 [facility] Comment on above: Performed By: #### L IPID, CMP #### [facility] [address] [address] [address] Mitesh Anthony CO2 [Moles/Vol] 27.6 mmol/L Normal 21.0-32.[address] [facility] Comment on above: Performed By: #### L IPID, CMP #### [facility] [address] [address] [address] Mitesh Anthony Creatinine [Mass/Vol] 1.23 mg/dL Critically high 0.55-1.02 [facility] Comment on above: Performed By: #### L IPID, CMP #### [facility] [address] [address] [address] Mitesh Anthony EGFR-AF PANAMANIAN 56 mL/min/1.73m2 Critically low >=60 [facility] Comment on above: Performed By: #### L IPID, CMP #### [facility] [address] [address] [address] Mitesh Anthony EGFR-NON AF PANAMANIAN 46 mL/min/1.73m2 Critically low >=60 [facility] Comment on above: Performed By: #### L IPID, CMP #### [facility] [address] [place] [address] Dr. Mitesh Anthony Globulin (S) [Mass/Vol] 3.3 g/dL Normal [facility] Comment on above: Performed By: #### L IPID, CMP #### [facility] [address] [place] [address] Dr. Mitesh Anthony Glucose [Mass/Vol] 97 mg/dL Normal 74-106 [facility] Comment on above: Performed By: #### L IPID, CMP #### [facility] [address] [place] [address] Dr. Mitesh Anthony Potassium [Moles/Vol] 4.0 mmol/L Normal 3.5-5.1 [facility] Comment on above: Performed By: #### L IPID, CMP #### [facility] [address] [place] [address] Dr. Mitesh Anthony Protein [Mass/Vol] 7.6 g/dL Normal 6.4-8.2 [facility] Comment on above: Performed By: #### L IPID, CMP #### [facility] [address] [place] [address] Dr. Mitesh Anthony Sodium [Moles/Vol] 142 mmol/L Normal 136-145 [facility] Comment on above: Performed By: #### L IPID, CMP #### [facility] [address] [place] [address] Dr. Mitesh Anthony Urea nitrogen [Mass/Vol] 22.0 mg/dL Critically high 7.0-18.0 [facility] Comment on above: Performed By: #### L IPID, CMP #### [facility] [address] [address] [address] Mitesh Anthony Urea nitrogen/Creatinine [Mass ratio] 17.9 mg/mg Normal [facility] Comment on above: Performed By: #### L IPID, CMP #### [facility] [address] [address] [address] Mitesh Anthony TSHon 02-16-2022 TSH 2.355 uIU/mL Normal 0.358-3.740 [facility] Comment on above: Performed By: #### L IPID, CMP #### [facility] [address] [address] [address] Mitesh Anthony Comprehensive metabolic 2000 panelon 09-22-2021 Albumin [Mass/Vol] 4.5 g/dL 3.2 - 5.2 g/dL [facility] ALP [Catalytic activity/Vol] 75 U/L 40 - 150 U/L [facility] ALT [Catalytic activity/Vol] 14 U/L 0 - 40 U/L [facility] Anion gap [Moles/Vol] 16 mmol/L 10 - 2 0 mmol/L [facility] AST [Catalytic activity/Vol] 17 U/L 0 - 45 U/L [facility] Bilirubin [Mass/Vol] 0.3 mg/dL 0.0 - 1 .3 mg/dL [facility] Calcium [Mass/Vol] 9.0 mg/dL 8.4 - 10. 2 mg/dL [facility] Chloride [Moles/Vol] 105 mmol/L 98 - 10 8 mmol/L [facility] Creatinine [Mass/Vol] 1.16 mg/dL High 0.40 - 1.10 [facility] GFR/1.73 sq M.predicted CKD-EPI (S/P/Bld) [Vol rate/Area] 64 >=60 mL/min/1.73 m2 [facility] Glucose [Mass/Vol] 129 mg/dL High 65 - 99 mg/dL [facility] HCO3 [Moles/Vol] 26 mmol/L 21 - 32 mmol/L [facility] Interpretation and review of laboratory results Abnormal [facility] Potassium [Moles/Vol] 3.7 mmol/L 3.5 - 5.1 mmol/L [facility] Protein [Mass/Vol] 6.5 g/dL 6.0 - 8.0 g/dL [facility] Sodium [Moles/Vol] 143 mmol/L 135 - 145 mmol/L [facility] Urea nitrogen [Mass/Vol] 20 mg/dL 8 - 25 mg/dL [facility] Urea nitrogen/Creatinine [Mass ratio] 17.2 mg/mg [facility] The eGFR should be u sed for monitoring renal function only and not for medication dosing. [facility] HIV 1/2 Screen (4th Generati on)on 09-22-2021 HIV 1+2 Ab+HIV1 p24 Ag IA Ql Negative Negative [facility] This assay screens f or the presence of HIV-1, HIV-2 antibodies and for the presence of HIV-1 antigen. Test performed using [employer] immunoassay system [facility] HbA1c (Bld) [Mass fraction]o n 09-22-2021 Average glucose Estimated from glycated hemoglobin (Bld) [Mass/Vol] 137 mg/dL High 74 - 114 mg/dL [facility] Interpretation and review of laboratory results Abnormal [facility] Normal: 4.2% - 5.6% Increased risk for diabetes: 5.7% - 6.4% Diabetes: >= 6.5% Pediatrics: No established reference range Estimated average glucose: 74-114 mg/dL [facility] Hemoglobin A1con 09-22-2021 HbA1c (Bld) [Mass fraction] 6.4 % High 4.2 - 5.6 % [facility] Hepatitis C Antibodyon 09-22 HCV Ab Ql (S) Negative Negative [facility] Test performed using [employer] immunoassay system [facility] Lipid 1996 panelon 2 Cholesterol [Mass/Vol] 195 mg/dL 100 - 199 mg/dL [facility] Cholesterol in HDL [Mass/Vol] 69 mg/dL 40 - 59 [facility] Cholesterol in LDL [Mass/Vol] 114 mg/dL 10 - 130 mg/dL [facility] Comment on above: National Cholesterol Education Program Guidelines: LDL Cholesterol Optimal: <100 mg/dL Near Optimal/above Optimal: 100-129 mg/dL Borderline High: 130-159 mg/dL High: 160-189 mg/dL Very High: greater than or equal to 190 mg/dL Cholesterol non HDL [Mass/Vol] 126 mg/dL [facility] Comment on above: National Cholesterol Education Program Guidelines: NON HDL Cholesterol Desirable: <130 mg/dL Borderline High: 130-159 mg/dL High: 160-189 mg/dL Very High: > or = 190 mg/dL Cholesterol.total/Cho lesterol in HDL [Mass ratio] 2.8 {ratio} ratio [facility] Comment on above: Female Cholesterol/H DL Ratio: Average risk: 4.4 1/2 average risk: 3.3 2 x average risk: 7.1 Triglyceride [Mass/Vol] 62 mg/dL 30 - 150 mg/dL [facility] No Panel Informationon 09-22 Interpretation and review of laboratory results Normal [facility] TSH DL <= 0.005 mIU/L Qnon 0 09-22-2021 Interpretation and review of laboratory results Normal [facility] TSH Qn 2.57 m[IU]/L [facility] Vital Signs Date Time Vital Sign Value Performing Clinician Facility 02-26-2024 16:11-0400 Body mass index (BMI) [Ratio] 18 kg/m2 [facility] 02-26-2024 16:11-0400 Diastolic blood pressure 81 mm[Hg] [facility] 02-26-2024 16:11-0400 Systolic blood pressure 135 mm[Hg] [facility] 02-26-2024 16:03-0400 Body height 144.78 cm [facility] 02-26-2024 16:03-0400 Body temperature 98.8 [degF] [facility] 02-26-2024 16:03-0400 Body weight 37.76 kg [facility] 02-26-2024 16:03-0400 Heart rate 115 /min [facility] 02-26-2024 16:03-0400 Respiratory rate 16 /min [facility] 02-26-2024 16:03-0400 SaO2% (BldA) [Mass fraction] 95 % [facility] 11-14-2023 10:24-0400 Body height 144.78 cm [facility] 11-14-2023 10:24-0400 Body mass index (BMI) [Ratio] 16.9 kg/m2 [facility] 11-14-2023 10:24-0400 Body temperature 97.5 [degF] [facility] 11-14-2023 10:24-0400 Body weight 35.49 kg [facility] 11-14-2023 10:24-0400 Diastolic blood pressure 79 mm[Hg] [facility] 11-14-2023 10:24-0400 Heart rate 110 /min [facility] 11-14-2023 10:24-0400 Respiratory rate 16 /min [facility] 11-14-2023 10:24-0400 SaO2% (BldA) [Mass fraction] 99 % [facility] 11-14-2023 10:24-0400 Systolic blood pressure 132 mm[Hg] [facility] 02-13-2023 15:20-0400 Body height 144.78 cm Corazon Mazas Other [employer] [facility] [employer] Other 02-13-2023 15:20-0400 Body mass index (BMI) [Ratio] 16.27 kg/m2 Azrich Mazas Other [employer] Other 02-13-2023 15:20-0400 Body temperature 98.4 [degF] Azrich Mazas Other [employer] Other 02-13-2023 15:20-0400 Body weight 34.11 kg Azrich Mazas Other [employer] Other 02-13-2023 15:20-0400 Diastolic blood pressure 101 mm[Hg] Azrich Mazas Other [employer] Other 02-13-2023 15:20-0400 Respiratory rate 16 /min Aziz Bakhous Other [employer] Other 02-13-2023 15:20-0400 SaO2% (BldA) [Mass fraction] 99 % Aziz Bakhous Other [facility] [employer] Other 02-13-2023 15:20-0400 Systolic blood pressure 147 mm[Hg] Corazon Krishna Other [facility] [employer] Other 08-02-2022 15:14-0500 Body height 132.1 cm Kaden Golden MD Work Phone: [facility] 08-02-2022 15:14-0500 Body temperature 97.5 [degF] Kaden Golden MD Work Phone: [facility] 08-02-2022 15:14-0500 Body weight 32.2 kg Kaden Golden MD Work Phone: [facility] 08-02-2022 15:14-0500 Diastolic blood pressure 85 mm[Hg] Kaden Golden MD Work Phone: [facility] 08-02-2022 15:14-0500 Heart rate 74 /min Kaden Golden MD Work Phone: [facility] 08-02-2022 15:14-0500 Respiratory rate 16 /min Kaden Golden MD Work Phone: [facility] 08-02-2022 15:14-0500 SaO2% (BldA) [Mass fraction] 93 % Kaden Golden MD Work Phone: [facility] 08-02-2022 15:14-0500 Systolic blood pressure 136 mm[Hg] Kaden Golden MD Work Phone: [facility] 06-20-2022 14:28-0500 Blood Pressure Location Christopher VALERIO [facility] 06-20-2022 14:28-0500 Diastolic blood pressure 76 mm[Hg] Christopher VALERIO [facility] [place] 06-20-2022 14:28-0500 Heart rate 70 /min Christopher VALERIO [facility] [place] 06-20-2022 14:28-0500 Respiratory rate 16 /min Christopher TEODORO [facility] [place] 06-20-2022 14:28-0500 Systolic blood pressure 116 mm[Hg] Christopher LANDERSKasi [facility] [place] 09-22-2021 11:52-0400 Diastolic blood pressure 108 mm[Hg] Radha Sierra MD Work Phone: [facility] 09-22-2021 11:52-0400 Systolic blood pressure 162 mm[Hg] Radha Sierra MD Work Phone: [facility] 09-22-2021 10:58-0400 Body height 132.1 cm Radha Sierra MD Work Phone: [facility] 09-22-2021 10:58-0400 Body mass index (BMI) [Ratio] 16.02 kg/m2 Radha Sierra MD Work Phone: [facility] 09-22-2021 10:58-0400 Body temperature 98.49 [degF] Radha Sierra MD Work Phone: [facility] 09-22-2021 10:58-0400 Body weight 27.94 kg Radha Sierra MD Work Phone: [facility] 09-22-2021 10:58-0400 Heart rate 132 /min Radha Sierra MD Work Phone: [facility] 09-22-2021 10:58-0400 Respiratory rate 16 /min Radha Sierra MD Work Phone: [facility] 09-22-2021 10:58-0400 SaO2% (BldA) [Mass fraction] 99 % Radha Sierra MD Work Phone: [facility] 04-04-2019 09:17-0500 BP Diastolic 89 mm[Hg] Suraj Addison [facility] 04-04-2019 09:17-0500 BP Systolic 155 mm[Hg] Suraj Addison [facility] 04-04-2019 09:07-0500 BMI (Body Mass Index) 16.12 kg/m2 Suraj Addison [facility] 04-04-2019 09:07-0500 Body Temperature 97.59 [degF] [facility] 04-04-2019 09:07-0500 Body weight 28.67 kg Suraj Addison [facility] 04-04-2019 09:07-0500 Height 133.4 cm [facility] 04-04-2019 09:07-0500 Pulse (Heart Rate) 95 /min Suraj Addison [facility] 04-04-2019 09:07-0500 Pulse [facility]ximetry 98 % [facility] 09-17-2018 09:02-0400 BMI (Body Mass Index) 17.09 kg/m2 Nahum Reaves [facility] 09-17-2018 09:02-0400 Body Temperature 97.81 [degF] Nahum Reaves [facility] 09-17-2018 09:02-0400 BP Diastolic 93 mm[Hg] Nahum Reaves [facility] 09-17-2018 09:02-0400 BP Systolic 146 mm[Hg] Nahum Reaves [facility] 09-17-2018 09:02-0400 Height 133.4 cm Nahum Reaves [facility] 09-17-2018 09:02-0400 Pulse (Heart Rate) 109 /min Nahum Reaves [facility] 09-17-2018 09:02-0400 Pulse Oximetry 98 % Nahum Reaves [facility] 09-17-2018 09:02-0400 Weight 30.39 kg Nahum Reaves [facility] 09-26-2017 08:19-0400 BMI (Body Mass Index) 16.94 kg/m2 Nini Pelletier [facility] 09-26-2017 08:19-0400 Height 133.4 cm Nini Pelletier [facility] 09-26-2017 08:19-0400 Weight 30.12 kg Nini Pelletier [facility] 08-28-2017 11:10-0400 BP Diastolic 100 mm[Hg] Nini Pelletier [facility] 08-28-2017 11:10-0400 BP Systolic 130 mm[Hg] Nini [facility] 08-28-2017 09:59-0400 BMI (Body Mass Index) 16.33 kg/m2 Nini Pelletier [facility] 08-28-2017 09:59-0400 Height 133.4 cm Nini [facility] 08-28-2017 09:59-0400 Weight 29.03 kg Nini [facility] 08-14-2017 10:39-0400 BMI (Body Mass Index) 16.53 kg/m2 Nini [facility] 08-14-2017 10:39-0400 Height 133.4 cm Nini [facility] 08-14-2017 10:39-0400 Weight 29.39 kg Nini [facility] 07-31-2017 10:19-0500 BP Diastolic 98 mm[Hg] Nini [facility] 07-31-2017 10:19-0500 BP Systolic 150 mm[Hg] Nini [facility] 07-31-2017 10:19-0500 Pulse (Heart Rate) 107 /min Nini [facility] 07-31-2017 09:04-0500 BMI (Body Mass Index) 15.82 kg/m2 Nini [facility] 07-31-2017 09:04-0500 Body Temperature 98.8 [degF] Nini [facility] 07-31-2017 09:04-0500 Height 133.4 cm Nini [facility] 07-31-2017 09:04-0500 Pulse Oximetry 94 % Nini [facility] 07-31-2017 09:04-0500 Weight 28.12 kg Nini [facility] Encounters Encounter Date Encounter Type Care Provider Facility Start: 02-26-2024 End: 02-26-2024 ambulatory [facility] Work Phone: Start: 02-26-2024 End: 02-26-2024 Patient encounter procedure [facility] Work Phone: Start: 01-22-2024 End: 01-22-2024 ambulatory [facility] Start: 01-20-2024 End: 01-23-2024 Evaluation and management of inpatient DAVID ASKEW [facility] Start: 01-20-2024 End: 01-21-2024 [facility] Start: 11-14-2023 End: 11-14-2023 ambulatory [facility] Work Phone: Start: 11-14-2023 End: 11-14-2023 Patient encounter procedure [facility] Ne[facility] Work Phone: Start: 11-05-2023 Non-patient / Non-visit [facility] Professional [employer] Work Phone: Start: 03-01-2023 End: 03-01-2023 ambulatory Corazon Mazas Other [employer] Other Start: 03-01-2023 Telephone encounter Corazon Dariansahara [facility] Start: 02-13-2023 End: 02-13-2023 ambulatory Corazon Darianlauras Other [facility] [employer] Other Start: 02-13-2023 Office outpatient ne w 30 minutes Corazon Dariansahara [facility] Start: 08-17-2022 End: 08-18-2022 ambulatory LEONARDO LENZ Facility: Start: 08-02-2022 End: 08-02-2022 ambulatory KADEN GOLDEN Facility:[facility] Start: 08-02-2022 End: 08-02-2022 ambulatory Kaden Golden MD Work Phone: Hematology/Oncology Comment on above: 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); Encounter for screening mammogram for malignant neoplasm of breast Start: 08-02-2022 End: 08-02-2022 Patient encounter procedure Kaden Golden MD Work Phone: [facility] Start: 07-21-2022 End: 07-22-2022 ambulatory LEONARDO SHAMMO Facility: [facility] Start: 07-21-2022 End: 07-21-2022 Patient encounter procedure Christopher VALERIO [facility] Start: 07-16-2022 Refill Radha Sierra MD Work Phone: [facility] Comment on above: HTN Start: 07-12-2022 End: 07-13-2022 ambulatory LEONARDO SHAMMO Facility:[id number] Start: 07-05-2022 Encounter for preprocedural cardiovascular examination DR CHRISTOPHER VALERIO . [facility] Start: 07-05-2022 Encounter for preprocedural laboratory examination DR CHRISTOPHER VALERIO . [facility] Start: 07-04-2022 End: 07-05-[address] CHRISTOPHER VALERIO . Facility: Start: 07-04-2022 End: 07-05-2022 Encounter for preprocedural laboratory examination DR CHRISTOPHER VALERIO . Facility: Start: 06-20-2022 End: 06-21-2022 ambulatory LEONARDO SHAMMO Facility:[facility] Start: 06-20-2022 End: 06-20-2022 Patient encounter procedure Christopher VALERIO General [facility] [place] Start: 06-05-2022 End: 06-05-2022 ambulatory LEONARDO SHAMMO Facility: Start: 05-18-2022 End: 05-19-2022 ambulatory LEONARDO SHAMMO Facility: Start: 05-16-2022 End: 05-17-2022 ambulatory LEONARDO SHAMMO Facility: Start: 04-24-2022 End: 04-25-[address] JANIE TOSCANO . Facility: Start: 04-12-2022 End: 04-13-2022 ambulatory LEONARDO SHAMMO Facility:CD:[id number] Start: 04-08-2022 End: 04-09-[address] CHRISTOPHER VALERIO . Facility: Start: 03-08-2022 End: 03-09-2022 ambulatory LEONARDO SHAMMO Facility:[facility] Start: 03-03-2022 Refill Radha Sierra MD Work Phone: [facility] Comment on above: Acquired hypothyroid ism Start: 03-01-2022 End: 03-01-[address] JANIE TOSCANO . Facility:[facility] Start: 03-01-2022 ambulatory LEONARDO LENZ Facility:[facility] Start: 02-17-2022 ambulatory LEONARDO LENZ Facility:[facility] Start: 02-16-2022 End: 02-17-[address] DOCTOR WHITMAN Facility:[facility] Start: 09-22-2021 End: 09-26-2021 ambulatory RADHA [facility] Start: 09-22-2021 End: 09-22-2021 Office outpatient visit 25 minutes Radha Sierra MD Work Phone: [facility] Comment on above: HTN (Primary Dx); Acquired hypothyroidism; Hyperlipidemia, unspecified hyperlipidemia type; Colon cancer screening; Encounter for screening for malignant neoplasm of breast, unspecified screening modality; Healthcare maintenance; Sinus tachycardia, chronic; Elevated serum creatinine; Prediabetes; Hypertension, benign Start: 04-30-2020 End: 04-30-2020 Patient encounter procedure NAHUM [facility] Start: 12-25-2019 Patient encounter procedure NAHUM [facility] Start: 10-01-2019 End: 10-01-2019 Patient encounter procedure NAHUM [facility] Start: 09-25-2019 End: 09-25-2019 Patient encounter procedure NAHUM [facility] Start: 06-11-2019 Patient encounter procedure NAHUM [facility] Start: 04-04-2019 End: 04-04-2019 Patient encounter procedure Suraj Addison Work Phone: [facility] Comment on above: Well adult exam (Beatriz joceline Dx); HTN; Acquired hypothyroidism; Hyperlipidemia, unspecified hyperlipidemia type; Unexplained weight loss; Screening for malignant neoplasm of breast; Hearing loss, unspecified hearing loss type, unspecified laterality; Family history of diabetes mellitus Start: 09-17-2018 End: 09-17-2018 Office outpatient visit 15 minutes Nahum Reaves Work Phone: [facility] Comment on above: Bilateral hearing lo ss, unspecified hearing loss type (Primary Dx); Intellectual disability (CORBIN Polo, ); Short stature Start: 09-26-2017 End: 09-26-2017 Office/outpatient visit, est, level 4 Nini Pelletier Work Phone: [facility] Start: 08-28-2017 Office/outpatient vi sit, est, level 3 Nini Pelletier Work Phone: [facility] Start: 08-14-2017 Office/outpatient vi sit, est, level 3 Nini Pelletier Work Phone: [facility] Start: 07-31-2017 Office/outpatient vi sit, est, level 3 Nini Pelletier Work Phone: [facility] Start: 06-15-2011 End: 04-04-2019 Patient encounter status Radha Sierra MD Work Phone: [facility] Work Phone: Procedures Date Procedure Procedure Detail Performing Clinician Start: 07-12-2022 Lumpectomy of left breast Christopher VALERIO Start: 09-22-2021 Adult depression scr eening assessment Radha Sierra MD Work Phone: Start: 04-04-2019 Adult depression scr eening assessment Suraj Addison Start: 06-07-2018 Adult depression scr eening assessment Nahum Reaves Colonoscopy Christopher LANDERSKasi Core needle biopsy o f breast Christopher LANDERSKasi Plan of Treatment Date Care Activity Detail Author Start: 08-03-2024 Tetanus vaccination [facility] Start: 09-22-2022 Depression screening using PHQ-9 (Patient Health Questionnaire 9) score Depression Screening (PHQ-2/9) [facility] Start: 05-28-2022 DEPRESSION ASSESSMENT DEPRESSION ASS [facility] Start: 01-26-2022 Influenza vaccination [facility] Start: 10-07-2021 End: 10-07-2021 Patient encounter procedure 10/07/2021 Office Visit Primary Care Radha Sierra MD [address] [place] [address] [facility] Start: 03-04-2021 COVID-19 Vaccine (3 - Booster for Pfizer series) COVID-19 Vaccine (3 - Booster for Pfizer series) [facility] Start: 11-27-2020 COVID-19 Vaccine (3 - Booster for Pfizer series) COVID-19 Vaccine (3 - Booster for Pfizer series) [facility] Start: 04-04-2020 History and physical examination, annual for health maintenance Wellness Visit [facility] Start: 06-07-2019 Depression screening using PHQ-9 (Patient Health Questionnaire 9) score DEPRESSION SCREENING (PHQ9) [facility] Start: 06-07-2019 Screening for substa nce abuse SUBSTANCE ABUSE SCREENING (AUDIT-C) [facility] Start: 05-05-2019 End: 05-05-2019 Office Visit 05/05/2019 Office Visit Primary Care Nahum Reaves CNP [address] [place] [address] [phone] [facility] Start: 10-01-2018 End: 10-01-2018 Office Visit 10/01/2018 Office Visit Primary Care Nahum Reaves CNP [address] [place] [address] [phone] [facility] Start: 03-29-2018 End: 03-29-2018 Ambulatory 03/29/2018 Office Visit Primary Care Nini Pelletier CNP [address] [place] [address] [phone] [facility] Start: 01-26-2018 Influenza vaccinatio n given SEQUENTIAL INFLUENZA VACCINE (#1) [facility] Start: 09-25-2017 Ambulatory 09/25/2017 Off ice Visit Primary Care Nini Pelletier CNP [address] [place] [address] [phone] [facility] Start: 2017 COLOGUARD (FIT-DNA) COLOGUARD (FIT-D NA) [facility] Start: 2017 Colonoscopy COLONOSCOPY [facility] Start: 2017 COLORECTAL CANCER SCREENING COLORECTAL CANCER SCREENING [facility] Start: [address] COLONOGRAPHY [facility] Start: 2017 DIABETES SCREEN DIABETES SCREEN [facility] Start: 2017 FECAL OCCULT BLOOD FECAL OCCULT BLOO D [facility] Start: 2017 LIPID SCREEN LIPID SCREEN [facility] Start: 2017 SIGMOIDOSCOPY SIGMOIDOSCOPY [facility] Start: 08-28-2017 Ambulatory 08/28/2017 Off ice Visit Primary Care Nini Pelletier CNP [address] [place] [address] [phone] [facility] Start: 08-07-2017 Ambulatory 08/07/2017 Off ice Visit Primary Care Nini Pelletier CNP [address] [place] [address] [phone] [facility] Start: 2012 Mammography MAMMOGRAM [facility] Start: 2012 Screening for malign ant neoplasm of breast Mammogram [facility] Start: 2002 HPV TESTING HPV TESTING [facility] Start: 1993 PAP TESTING PAP TESTING [facility] Start: 09-24-1991 Urine microalbumin profile DTAP,TDAP ,TD (1 - Tdap) [facility] Start: 1990 Hepatitis C screening Hepatitis C [facility] Start: 1990 HEPATITIS C SCREENING HEPATITIS C [facility] Start: 1990 HIV SCREENING HIV SCREENING [facility] Start: 09-24-1987 HIV screening HIV Screening [facility] Start: 09-24-1975 History and physical examination, annual for health maintenance Wellness Visit [facility] Start: 1972 HEPATITIS B (1 of 3 - 3-dose series) HEPATITIS B (1 of 3 - 3-dose series) [facility] Start: 1972 Protein mass conc Mammogram [facility] Start: 1972 Screening for malign ant neoplasm of cervix PAP SMEAR [facility] Start: 1972 Screening for malign ant neoplasm of colon [facility] Start: 1972 Screening mammography Mammogram [facility] Cologuard Cologuard Lab [facility] Colon cancer screening Ordered: 09/22/2021 [facility] Comment on above: Ordered: 09/22/2021 End: 04-04-2020 Complete blood count with white cell differential, manual CBC and Differential Lab Routine Unexplained weight loss 1 Occurrences starting 04/04/2019 until 04/04/2020 [facility] Comment on above: 1 Occurrences starti ng 04/04/2019 until 04/04/2020 End: 04-04-2020 Comprehensive metabolic 2000 panel Comprehensive Metabolic Panel Lab Routine HTN 1 Occurrences starting 04/04/2019 until 04/04/2020 [facility] Comment on above: 1 Occurrences starti ng 04/04/2019 until 04/04/2020 End: 09-22-2022 Comprehensive metabolic 2000 panel - Serum or Plasma Comprehensive Metabolic Panel Lab Routine 1 Occurrences starting 09/22/2021 until 09/22/2022 [facility] Comment on above: 1 Occurrences starti ng 09/22/2021 until 09/22/2022 Comprehensive metabo lic 2000 panel - Serum or Plasma Comprehensive Metabolic Panel Lab Routine 09/22/2021 12:11 PM EDT [facility] End: 07-31-2018 Comprehensive metabolic panel [AGGREGATE] Comprehensive Metabolic Panel Routine HTN 1 Occurrences starting 07/31/2017 until 07/31/2018 [facility] Comprehensive metabo lic panel [AGGREGATE] Comprehensive Metabolic Panel Routine HTN 07/31/2017 10:43 AM EST [facility] End: 04-04-2020 HbA1c (Bld) [Mass fraction] Hemoglobin A1c Lab Routine Family history of diabetes mellitus 1 Occurrences starting 04/04/2019 until 04/04/2020 [facility] Comment on above: 1 Occurrences starti ng 04/04/2019 until 04/04/2020 End: 09-22-2022 Hemoglobin A1c/Hemoglobin.total in Blood Hemoglobin A1c Lab Routine 1 Occurrences starting 09/22/2021 until 09/22/2022 [facility] Comment on above: 1 Occurrences starti ng 09/22/2021 until 09/22/2022 Hemoglobin A1c/Hemoglobin.total in Blood Hemoglobin A1c Lab Routine 09/22/2021 12:11 PM EDT [facility] End: 09-22-2022 Hepatitis C antibody measurement Hepatitis C Antibody Lab Routine Healthcare maintenance 1 Occurrences starting 09/22/2021 until 09/22/2022 [facility] Comment on above: 1 Occurrences starti ng 09/22/2021 until 09/22/2022 Hepatitis C antibody measurement Hepatitis C Antibody Lab Routine Healthcare maintenance 09/22/2021 12:11 PM EDT [facility] End: 09-22-2022 Human immunodeficiency virus antibody test HIV 1/2 Screen (4th Generation) Lab Routine Healthcare maintenance 1 Occurrences starting 09/22/2021 until 09/22/2022 [facility] Comment on above: 1 Occurrences starti ng 09/22/2021 until 09/22/2022 Human immunodeficien cy virus antibody test HIV 1/2 Screen (4th Generation) Lab Routine Healthcare maintenance 09/22/2021 12:11 PM EDT [facility] End: 04-04-2020 Lipid 1996 panel Lipid Panel Lab Routine HTN 1 Occurrences starting 04/04/2019 until 04/04/2020 [facility] Comment on above: 1 Occurrences starti ng 04/04/2019 until 04/04/2020 End: 09-22-2022 Lipid 1996 panel - Serum or Plasma Lipid Panel Lab Routine Hyperlipidemia, unspecified hyperlipidemia type 1 Occurrences starting 09/22/2021 until 09/22/2022 [facility] Comment on above: 1 Occurrences starti ng 09/22/2021 until 09/22/2022 Lipid 1996 panel - S luz or Plasma Lipid Panel Lab Routine Hyperlipidemia, unspecified hyperlipidemia type 09/22/2021 12:11 PM EDT [facility] End: 07-31-2018 Lipid panel Lipid Panel Routine Hyperlipidemia, Unspecified Hyperlipidemia Type 1 Occurrences starting 07/31/2017 until 07/31/2018 [facility] Lipid panel Lipid Panel Rout ine Hyperlipidemia, unspecified hyperlipidemia type 07/31/2017 10:43 AM EST [facility] End: 09-01-2023 MAURICIO SCREENING [place] MAURICIO SCREENING [place] Radiology Routine Atypical ductal hyperplasia of left breast Encounter for screening mammogram for malignant neoplasm of breast 1 Occurrences starting 08/02/2022 until 09/01/2023 [facility] Work Phone: Comment on above: 1 Occurrences starti ng 08/02/2022 until 09/01/2023 End: 06-04-2020 MG Breast - bilateral screening Mammography Screening Bilateral Imaging Routine Screening for malignant neoplasm of breast 1 Occurrences starting 04/04/2019 until 06/04/2020 [facility] Comment on above: 1 Occurrences starti ng 04/04/2019 until 06/04/2020 End: 11-22-2022 MG Breast - bilateral Screening Mammography Screening [place] Bilateral Imaging Routine Encounter for screening for malignant neoplasm of breast, unspecified screening modality 1 Occurrences starting 09/22/2021 until 11/22/2022 [facility] Comment on above: 1 Occurrences starti ng 09/22/2021 until 11/22/2022 End: 04-04-2020 Microalbumin measurement, urine, quantitative Microalbumin/Creatinine Ratio, UR Random Lab Routine HTN 1 Occurrences starting 04/04/2019 until 04/04/2020 [facility] Comment on above: 1 Occurrences starti ng 04/04/2019 until 04/04/2020 Microalbumin, Urine, Random Microalbumin, Urine, Random Routine HTN 07/31/2017 10:43 AM EST [facility] OUTSIDE SURG PATH SL FABIO REVIEW OUTSIDE SURG PATH SLIDE REVIEW Lab Routine Ordered: 08/02/2022 [facility] Work Phone: Comment on above: Ordered: 08/02/2022 Renal function 2000 panel - Serum or Plasma [facility] Renal function 1999 panel - Serum or Plasma [facility] End: 09-22-2022 Thyrotropin [Units/volume] in Serum or Plasma TSH with Reflex Free T4 Lab Routine Acquired hypothyroidism 1 Occurrences starting 09/22/2021 until 09/22/2022 [facility] Work Phone: Comment on above: 1 Occurrences starti ng 09/22/2021 until 09/22/2022 Thyrotropin [Units/v olume] in Serum or Plasma TSH with Reflex Free T4 Lab Routine Acquired hypothyroidism 09/22/2021 12:11 PM EDT [facility] End: 04-04-2020 TSH Qn TSH Lab Routine Acquired hypothyroidism 1 Occurrences starting 04/04/2019 until 04/04/2020 [facility] Comment on above: 1 Occurrences starti ng 04/04/2019 until 04/04/2020 End: 07-31-2018 TSH with Reflex Free T4 TSH with Reflex Free T4 Routine Acquired hypothyroidism 1 Occurrences starting 07/31/2017 until 07/31/2018 [facility] TSH with Reflex Free T4 TSH with Reflex Free T4 Routine Acquired hypothyroidism 07/31/2017 10:43 AM EST On license of [facility] Brandin russell [facility] Immunizations Immunization Date Immunization Notes Care Provider Nelly barton 05-02-2022 influenza virus vaccine, unspecified formulation Christopher VALERIO General [facility] [place] 05-02-2022 Seasonal, trivalent, recombinant, injectable influenza vaccine, preservative free Radha Sierra MD Work Phone: [facility] 10-02-2020 SARS-CoV-2 (COVID-19 ) mRNA BNT-162b2 evangelina VALERIO [facility] Comment on above: Result Comment: 2022: TPV40 09-11-2020 SARS-CoV-2 (COVID-19 ) mRNA BNT-162b2 evangelina VALERIO [facility] Comment on above: Result Comment: 2022: TPV40 08-03-2014 tetanus toxoid, redu maria teresa diphtheria toxoid, and acellular pertussis vaccine, adsorbed; Translations: [TDAP] Nini [facility] 08-03-2014 tuberculin skin test ; purified protein derivative solution, intradermal; Translations: [PPD TEST] Nini [facility] Payers Date Payer Category Payer Medicaid [id number] 2019 Medicare [id number] 2014 Medicaid [id number] 1993 Medicare MEDICARE MEDICAR E PART A & B xxxxxxxxxxx 1993-Present [place] xxxxxxxxxxx [id number] 1993 Medicare [id number]. [id number] 1972 Unknown [id number] 2.16.840.1.448710.3.579.2.903 1972 Unknown [id number] 2.16.840.1.811471.3.579.2.903 1972 Unknown [id number] 2.16.840.1.447651.3.579.2.903 1972 Unknown [id number] 2.16.840.1.427333.3.579.2.903 1972 Unknown [id number] 2.16.840.1.456589.3.579.2.903 1972 Unknown [id number] 2.16.840.1.371636.3.579.2.900 1972 Unknown [id number] 2.16.840.1.155623.3.579.2.727 1972 Unknown [id number] 2.16.840.1.323301.3.579.2.727 1972 Unknown [id number] 2.16.840.1.602489.3.579.2.727 1972 Unknown [id number] 2.16840.1.191705.3.579.2.727 1972 Unknown [id number] 2.16.840.1.811489.3.579.2.727 1972 Unknown [id number] 2.16.840.1.425156.3.579.2.727 1972 Unknown [id number] 2.16.840.1.142072.3.579.2.593 1972 Unknown [id number] 2.16.840.1.438659.3.579.2.593 1972 Unknown [id number] 2.16.840.1.255087.3.579.2.593 1972 Unknown [id number] 2.16.840.1.447743.3.579.2.593 1972 Unknown [id number] 2.16.840.1.177295.3.579.2.593 1972 Unknown [id number] 2.16.840.1.735508.3.579.2.593 1972 Unknown [id number] 2.16.840.1.577434.3.579.2.593 1972 Unknown [id number] 2.16.840.1.296914.3.579.2.593 1972 Unknown [id number] 2.16.840.1.587407.3.579.2.593 1972 Unknown [id number] 2.16.840.1.767378.3.579.2.593 1972 Unknown [id number] 2.16.840.1.537074.3.579.2.593 1972 Unknown [id number] 2.16.840.1.577501.3.579.2.593 1972 Unknown [id number] 2.16.840.1.853798.3.579.2.1286 1972 Unknown [id number] 2.16.840.1.170525.3.579.2.1286 1972 Unknown [id number] 2.16.840.1.501044.3.579.2.1286 1972 Unknown [id number] 2.16.840.1.139120.3.579.2.175 1959 Medicaid [id number] 1957 Medicare [id number] Medicare [id number] Medicare xxxxxxxxxx [id number] Social History Date Type Detail Facility Start: 09-26-2017 End: 11-14-2023 Tobacco smoking status LAIS Never smoker [facility] Start: 1970 Sex Assigned At Not on file [facility] Start: 04-04-2019 End: 09-22-2021 Alcohol intake Current non-drinker of alcohol (finding) [facility] Start: 04-04-2019 End: 04-30-2020 History SDOH Food Worry 1 [facility] Start: 04-04-2019 End: 08-02-2022 Tobacco use and exposure Smokeless tobacco non-user [facility] Start: 09-11-2021 End: 09-21-2021 Exposure to SARS-CoV-2 (event) Not sure [facility] Tobacco smoking status Never [facility] Sex Assigned At Female [facility] History of tobacco use Passive smoker [facility] Start: 08-02-2022 Alcohol intake Ex-drinker (finding) [facility] Start: 1970 Sex Assigned At Female F [facility] Functional Status Date Assessment Result Facility 06-20-2022 Functional Status N/A [facility] Clinical Notes 09-22-2021 to 02-13-2023 Note [...] E78.5) Follows with PCP for hyperlipidemia management. [facility] Other 03-08-2023 NoteHNO ID: [id number] Author: Kaden Golden MD Service: ? Author Type: Physician Type: Progress Notes Filed: 08/02/2022 4:01 PM Note Text: PATIENT NAME: Lindsey Polo [facility] NO.: [id number] ATTENDING PHYSICIAN: Kaden Golden MD DATE OF SERVICE: August 02, [address] Christopher Valerio thank you for referring Miss Lindsey Polo [...] within a fibroadenoma. She subsequently saw Dr. Valerio and L breast Lumpectomy 07/12/2022 with atypical [...] in pharmacologic risk reduc (more content not included)...[facility]03-08-2023 History of Present illness Narrative* Kaden Golden MD - 08/02/2022 3:28 PM EST Images from the original note were not included. PATIENT NAME: Lindsey Polo CLINIC NO.: [id number] ATTENDING PHYSICIAN: Kaden Golden MD DATE OF SERVICE: August 02, [address] Christopher Valerio thank you for referring Miss Lindsey Polo [...] within a fibroadenoma. She subsequently saw Dr. Valerio and L breast Lumpectomy 07/12/2022 with atypical [...] D Continue BP meds Dear Dr. Christopher Valerio. thank you for allowing me to participate in Miss Lindsey Polo care,if there are any questions or concerns please do not hesitate to contact me at the number below. Kaden Golden M.D. 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 PROCEDURE: Needle localized left breast lumpectomy for lump at 3 o'clock position in the left breast. SURGEON: Christopher Valerio M.D. ANESTHESIA: General with laryngeal mask airway. [...] in good condition. CC: Patient's family physicianThe [place] [id number] NoteChief Complaint consultation for abnormal mammogram/biopsy HPI [...] mcg= 1 tab(s), Oral, Daily Potassium Chloride (Adh-Hcdb-Vmv M20) 20 mEq oral tablet, extended release, [...] SARS-CoV-2 (COVID-19) mRNA BN (more content not included)...[facility]:Result Comment: Electronically Signed By: TEODORO MALIK, Christopher Hernandez\.br\Date and Time Signed: 06/20/22 14:54 [id number] NoteOPERATIVE NOTE OPERATION DATE: 04/12/2022 PREOPERATIVE DIAGNOSIS: Colorectal screening. POSTOPERATIVE DIAGNOSIS: Normal colon to cecum. PROCEDURE: Colonoscopy to cecum. SURGEON: Christopher Valerio M.D. ANESTHESIA: Monitored anesthesia care. ESTIMATED BLOOD [...] recovery room in good condition. CC: Leonardo Lenz [facility]11-16-2022 NoteOPERATIVE NOTE OPERATION DATE: 04/12/2022 ADDENDUM: Follow up colonoscopy for screening should be in 10 years.[facility] [id number] NoteChief Complaint consultation for screening colonoscopy HPI Staff 51 year old female presents on consultation from Leonardo Lenz NP for screening colonoscopy. Deniesabdominal or rectal [...] mcg= 1 tab(s), Oral, Daily Potassium Chloride (Dxn-Rtsm-Bjn M20) 20 mEq oral tablet, extended release, [...] Use:., 03/08/2022 Family History Family history is negativeOhiohealth [facility]ville Health CenterComment on above:Result Comment: Electronically Signed By: TEODORO MALIK, Christopher Ragland\Date and Time Signed: 03/08/22 16:55 [id number] Evaluation + Plan note* Assessment & Plan Note - Radha Sierra MD - 09/22/2021 12:07 PM EDTAssociated Problem(s): Prediabetes Noted on last A1c Rechecking A1c [id number] Miscellaneous Notes* Assessment & Plan Note - [...] synthroid at current dose. documented in this [id number] Evaluation + Plan note* Assessment & Plan Note - Radha Sierra MD - 09/22/2021 12:06 PM EDTAssociated Problem(s): Elevated serum creatinine Noted on last blood work in 2019. Rechecking labs. [id number] Evaluation + Plan note* Assessment & Plan Note - Radha Sierra MD - 09/22/2021 12:04 PM EDTAssociated Problem(s): Sinus tachycardia, chronic Chronic. Asymptomatic. Appears to have had this as far back as 2016 per chart review. Not sure it has been worked up Will need to discuss starting a BB at next visit and cardiology referral. [id number] Evaluation + Plan note* Assessment & Plan Note - Radha Sierra MD - 09/22/2021 12:02 PM EDTAssociated Problem(s): Hyperlipidemia Chronic. On Zocor. Continue. Checking lipid panel. [id number] Evaluation + Plan note* Assessment & Plan Note - Radha Sierra MD - 09/22/2021 11:59 AM EDTAssociated Problem(s): HTN Chronic. Not at goal. Asymptomatic. Does not take her medications consistently. Encouraged her to do this. No changes to meds at this time given inconsistent use. Will see back in 3 weeks and re-evaluate. [id number] Evaluation + Plan note* Assessment & Plan Note - Radha Sierra MD - 09/22/2021 11:57 AM EDTAssociated Problem(s): Hypothyroidism Chronic. Reports stable blood levels on Synthroid 25 mg Rechecking labs today Refilled synthroid at current dose. [id number] History of Present illness Narrative* Radha Sierra [...] presents for Chief Complaint Patient presents with Establish Care Here with her caregiver Gely who is contributing to history HTN On Amlodipine 10 mg daily, lisinopril/hctz 20-25 mg 1 tabs daily Reports BP at home in 170s/80 Reports she takes meds 4/7 days of the week Denies any CP, ECKERT, SOB, lightheadedness OSMANY Last BMP in 2019 with creatinine 1.16 [...] difficult at all - [facility] No data available for this section General Surgery [place] Evaluation + Plan noteGeneral Surgery [place] evaluation note* Diagnosis HTN- Primary Essential hypertension, benign Acquired hypothyroidism Unspecified hypothyroidism Hyperlipidemia, unspecified hyperlipidemia type Encounter for screening for malignant neoplasm of breast, unspecified screening modality Sinus tachycardia, chronic Other specified cardiac dysrhythmias Elevated serum creatinine Other nonspecific findings on examination of blood Prediabetes Other abnormal glucose [facility] Diagnosis HTN- Primary Essential hypertension, benign Acquired hypothyroidism Unspecified hypothyroidism Hyperlipidemia, unspecified hyperlipidemia type Encounter for screening for malignant neoplasm of breast, unspecified screening modality Sinus tachycardia, chronic Other specified cardiac dysrhythmias Elevated serum creatinine Other nonspecific findings on examination of blood Prediabetes Other abnormal glucose [facility]* Diagnosis Acquired hypothyroidism Unspecified hypothyroidism documented in this encounter [facility] note* Diagnosis Atypical ductal hyperplasia of left breast- Primary Encounter for screening mammogram for malignant neoplasm of breast Other screening mammogram [facility] Diagnosis HTN Essential hypertension, benign [facility] noteNo [facility] Richard Pauer - 3P Other Evaluation note* Diagnosis Onset Date Resolution Status Chronic kidney disease, stage 3b acute Hyperlipidemia acute Hypertensive nephropathy acu te Hypokalemia acute Hypomagnesemia acute Vitamin D deficiency acute [facility] Work Phone: Evaluation note* Diagnosis Onset Date Resolution Status [place] (acute kidney injury) [place] Chronic kidney disease, stage 3b acute Hyperkalemia acute Hyperlipidemia acute Hypertensive nephropathy acu te Hypokalemia acute Hypomagnesemia acute Vitamin D deficiency acute [facility] Work Phone: History general Narrative - Reported* Type Description Date Medical History CKD 3b Medical History HYPERTENSION Medical History HYPERLIPIDEMIA Medical History OSTEOPOROSIS Medical History HYPOTHYROIDISM Surgical History LEFT BREAST BIOPSY 2021 [facility] Discharge instructions No data available for this section General Surgery Poll Everywhere Progress note No data available for this section General Surgery Poll Everywhere Rechrc for referral (narrative) Referred by: Christopher VALERIO MD General Surgery Poll Everywhere Remrvo for referral (narrative)* Diagnostic Procedure Only (Routine) - Pending Review Specialty Diagnoses / Procedures Referred By Contfer t Referred To Contact [facility] Diagnoses Atypical ductal hyperplasia of left breast Encounter for screening mammogram for malignant neoplasm of breast Procedures MAURICIO SCREENING W [place] SCREENING DIGITAL BREAST TOMOSYNTHESIS BI SCREENING MAMMOGRAPHY BI 2-VIEW BREAST INC CAD Kaden Golden MD [address] [place] [id number] [facility] [address] [place] [address] Referral ID Status Reason Start Date Expiration Date Visits Requested Visits Authorized [id number] Pending Review Auto-Generat ed Referral 08/02/2022 09/01/2023 1 1 [facility] Instructions * Patient Instructions - Nini Pelletier CNP - 09/26/2017 8:31 AM EDT DASH Diet: [...] Log into your personal health record on [email or web address] and enter H967 in the Education box to learn more about DASH Diet: Care Instructions. Current as of: May 02, 2017 Content Version: 11.6 6424-8355 [employer]. Care instructions adapted under license by your healthcare professional. If you have questions about a medical condition or this instruction, always ask your healthcare professional. [employer] disclaims any warranty or liability for your [...] Log into your personal health record on [email or web address] and enter H967 in the Education box to learn more about DASH Diet: Care Instructions. Current as of: August 18, 2015 Content Version: 11.2 9116-2429 [employer]. Care instructions adapted under license by your healthcare professional. If you have questions about a medical condition or this instruction, always ask your healthcare professional. [employer] disclaims any warranty or liability for your [...] Log into your personal health record on [email or web address] and enter H967 in the Education box to learn more about DASH Diet: Care Instructions. Current as of: August 18, 2015 Content Version: 11.2 4210-0245 [employer]. Care instructions adapted under license by your healthcare professional. If you have questions about a medical condition or this instruction, always ask your healthcare professional. [employer] disclaims any warranty or liability for your [...] Log into your personal health record on [email or web address] and enter X567 in the Education box to learn more about High Blood Pressure: Care Instructions. Current as of: January 03, 2016 Content Version: 11.2 7421-4752 [employer]. Care instructions adapted under license by your healthcare professional. If you have questions about a medical condition or this instruction, always ask your healthcare professional. [employer] disclaims any warranty or liability for your [...] Log into your personal health record on [email or web address] and enter P501 in the Education box to learn more about Learning About High Blood Pressure. Current as of: August 18, 2015 Content Version: 11.2 6649-5386 [employer]. Care instructions adapted under license by your healthcare professional. If you have questions about a medical condition or this instruction, always ask your healthcare professional. [employer] disclaims any warranty or liability for your [...] mellitus History of Present Illness * Nahum Reaves, ARMEN - 09/17/2018 11:23 AM EDT Patient Name: Lindsey Polo : 1970 Location: [address] [facility], [place] [address] ASSESSMENT: Diagnoses and all orders for this visit: Bilateral hearing loss, unspecified hearing loss type Intellectual disability (CORBIN Polo, ) Short stature PLAN: -Form completed for [employer]. Pt appears to be appropriate for this [...] with her transportation through her work place ([employer]). She reports that the driversare rude and sometimes don't come . She spoke to the pt's [employer] family service caseworker (Johnson Cheek) re:the situation. She suggested that the pt try using [employer]. Pt needs the application signed. Pt's cousin [...] and would like to start using the [employer]. Review of Systems Constitutional: Negative for activity [...] Skin is warm and dry. * Nahum Reaves CNP - 09/17/2018 9:20 AM EDT documented in this encounter* Suraj Addison MD - 04/04/2019 9:53 AM EST Subjective Lindsey Polo is a 48 y.o. female who presents for a Medicare Wellness Visit. Patient Name: Lindsey Polo : 1970 Location: [address] [facility], [place] [address] ASSESSMENT: Diagnoses and all orders for this [...] Directive (Living Will and/or Durable Power of World Travel Counselor for Health Care)?: Copy on file What [...] Diagnosis Hyperlipidemia HTN Hypokalemia Hypothyroidism Intellectual disability (CORBIN Polo, ) Short stature Hearing loss Underweight [...] file Gets together: Not on file Attends gnosticist service: Not on file Active member of club or organization: Not on file Attends meetings of clubs or organizations: Not on file Relationship status: Not on file Other Topics Concern Not on file Social History Narrative Not on file Allergies: No Known Allergies Care Team Patient Care Team: Nahum Reaves CNP as PCP - General (Nurse Practitioner) Pharmacy / Equipment Co. (DME) [facility]/pharmacy #[id number] - [place], [place] - [address] [facility] [address] [facility] [id number] Objective Blood pressure (!) 155/89, pulse 95, [...] Documents on File Type Date Recorded Patient Length Control Tester Expl anation Advance Directives and Living Will Documents on File Type Date Recorded Patient Length Control Tester Expl anation Advance Directives and Livin g Will 09/22/2021 10:52 AM Advance Directive Response Recorded Date/ Time Advance Directives No October 16 3:53pm Summary Purpose Family History Relationship Condition Age at Onset Recorded Date/T yakelin father Unknown Reason for Referral Status Reason Specialty Diagnoses / Procedures Referred By Contact Referred To Contact Authorized Gastroenterology Diagnoses Unexplained weight loss Suraj Addison MD [address] [place] [address] Rudy Sanchez DO [address] [facility] [address] [place] [address] Status Reason Specialty Diagnoses / Procedures Referred By Contact Referred To Contact Authorized Service Not Available Internally Audiology Diagnoses Hearing loss, unspecified hearing loss type, unspecified laterality Suraj Addison MD [address] [place] [address] Kamaljit Viera [address] [place] [address] Status Reason Specialty Diagnoses / Procedures Referred By Contact Referred To Contact Authorized Service Not Available Internally Nephrology Diagnoses Hypertension, benign Suraj Addison MD [address] [place] [address] Marilee Song MD [address] [facility] [address] [place] [address] Status Reason Specialty Diagnoses / Procedures Referred By Contact Referred To Contact Pending Review Radiology Diagnoses Screening for malignant neoplasm of breast Procedures Mammography Screening Bilateral Suraj Addison MD [address] [place] [address] Specialty Diagnoses / Procedures Referred By Contac t Referred To Contact Radiology / Central Scheduling Diagnoses Encounter for screening for malignant neoplasm of breast, unspecified screening modality Procedures Mammography Screening [place] Bilateral Radha Sierra MD [address] [place] [address] Central Scheduling [address] [place] [address] Referral ID Status Reason Start Date Expiration Date Visits Requested Visits Authorized [id number] Authorized Specialty Services Required/Pat ient's Best Interest 09/22/2021 09/22/2022 1 1 Chief Complaint and Reason for Visit Chief Complaint RENAL 6 month f/u Reason for Visit Chronic kidney disea se, stage 3b Hyperlipidemia Hypertensive nephropathy Hypokalemia Hypomagnesemia Vitamin D deficiency Chief Complaint RENAL 4 MONTH F/U Reason for Visit [facility] Chronic kidney disease, stage 3b Hyperkalemia Hyperlipidemia Hypertensive nephropathy Hypokalemia Hypomagnesemia Vitamin D deficiency Additional Source Comments Reason for Visit (unrecogniz ed section and content) Reason Comments Establish Care needs paperwork fill ed out for mainstream Reason Comments Medicare Wellness Visit Gap Closure (Health Maintenance) mammogr am - adv to schedule. pap - due. wellness - today. flu vaccine - due. Reason Comments Establish Care Reason Comments Medication Refill Reason Comments Breast Cancer New patient consulta tion INFORMATION SOURCE (unrecogn ized section and content) DATE CREATED AUTHOR 04/30/2020 [facility] DATE CREATED AUTHOR AUTHOR'S ORGANIZ ATION 09/27/2021 [facility] DATE CREATED AUTHOR AUTHOR'S ORGANIZ ATION 08/04/2022 [facility] DATE CREATED AUTHOR AUTHOR'S ORGANIZ ATION 08/08/2022 [facility] DATE CREATED AUTHOR AUTHOR'S ORGANIZ ATION 08/21/2022 [facility] DATE CREATED AUTHOR AUTHOR'S ORGANIZ ATION 01/21/[address] [facility] DATE CREATED AUTHOR AUTHOR'S ORGANIZ ATION 01/24/2024 [facility] DATE CREATED AUTHOR AUTHOR'S ORGANIZ ATION 01/25/2024 [facility] Care Teams (unrecognized sec tion and content) Team Status: Active Member Role Status Dates Natasha eKlley APRN Primary Care Provider Active Team Status: Inactive Member Role Status Dates Natasha Kelley APRN Primary Care Provider Active Start: February 26, 2024 End: February 26, 2024 Corazon Krishna MD Attending Provider Active Star t: February 26, 2024 End: February 26, 2024 Pulmonary Nurse Practitioner Relationship Specialty Start Date End Date Radha Sierra MD [facility] [place] [phone] PCP - General Family Medicine 09/22/21 Pulmonary Nurse Practitioner Relationship Specialty Start Date End Date Radha Sierra MD [address] [place] [phone] PCP - General Family Medicine 09/22/21 Pulmonary Nurse Practitioner Relationship Specialty Start Date End Date Radha Sierra MD [address] [place] [address] PCP - General Family Medicine 09/22/21 Pulmonary Nurse Practitioner Relationship Specialty Start Date End Date Leonardo Lenz(Historical), CONSTRUCTION TECHNOLOGY INSTRUCTOR PCP - General Primary Care 07/31/22 Janie Toscano [address] [place] [address] [place] [address] [employer]PERINT[employer]ENT OF [employer] 07/31/22 Pulmonary Nurse Practitioner Relationship Specialty Start Date End Date Radha Sierra MD [address] [place] [address] PCP - General Family Medicine 09/22/21 Team Status: Active Member Role Status Dates Natasha Kelley APRN Primary Care Provider Active Team Status: Active Member Role Status Dates Leonardo Lenz , [facility] Primary Care Provider Active Start: November 05, 2023 Corazon Krishna MD Attending Provider Active Star t: November 05, 2023 Team Status: Inactive Member Role Status Brett Krishna MD Attending Provider Active Star t: November 14, 2023 End: November 14, 2023 Natasha Kelley APRN Primary Care Provider Active Start: November 14, 2023 End: November 14, 2023 Team Status: Inactive Member Role Status Brett Kelley APRN Primary Care Provider Active Start: February 26, 2024 End: February 26, 2024 Corazon Krishna MD Attending Provider Active Star t: February 26, 2024 End: February 26, 2024 Source Comments (unrecognize d section and content) In the event this informatio n is protected by the Federal Confidentiality of Alcohol and Drug Abuse Patient Records regulations: The Federal rules restrict any use of the information to criminally investigate or prosecute any alcohol or drug abuse patient.[facility] Goals (unrecognized section and content) Goals may be documented in a n alternate section FOR RECORDS PERTAINING TO PATIENTS WHO ARE [...] BE BASED ON THE PRIMARY CLINICAL RECORDS. [facility] [employer] [facility]. provides no warranty or guarantee of the accuracy or completeness of information in this document.
[2024-02-27 16:38] LABS: Albumin Level 3.6 g/dL (3.4-5.0); Anion Gap 12.7; BUN Creatinine Ratio 13.5; Calcium 9.6 mg/dL (8.5-10.1); Carbon Dioxide 27.4 mmol/L (21.0-32.0); Chloride 106 mmol/L (98-107); Estimated GFR (African America 43 (>=60 mL/min/1.73m^2); Estimated GFR (Non-African Ame 35 (>=60 mL/min/1.73m^2); Glucose 173 mg/dL (74-106); Phosphorus 3.9 mg/dL (2.6-4.7); Potassium 4.1 mmol/L (3.5-5.1); Sodium 142 mmol/L (136-145)
== END 2024-02-27 15:52 | disposition home or self-care (01) ==
LOC: LAB 16:02
PROVIDERS: PCP Nurse Practitioner
DX: N18.32 Chronic kidney disease, stage 3b (principal); N17.9 Acute kidney failure, unspecified; E87.5 Hyperkalemia
CPT/HCPCS: 36415; 80069

== ENCOUNTER 2024-04-15 15:30 | Outpatient (OUT) | payer MEDICARE, MEDICAID, SELFPAY ==
[2024-04-15 16:50] LABS: Alanine Aminotransferase 19 U/L (14-59); Albumin Globulin Ratio 0.9; Albumin Level 3.8 g/dL (3.4-5.0); Alkaline Phosphatase 113 U/L (46-116); Anion Gap 15.8; Aspartate Amino Transferase 10 U/L (15-37); BUN Creatinine Ratio 12.7; Bilirubin Total 0.3 mg/dL (0.2-1.0); Calcium 9.6 mg/dL (8.5-10.1); Carbon Dioxide 27.9 mmol/L (21.0-32.0); Chloride 107 mmol/L (98-107); Chol HDL Ratio 2.9; Cholesterol 287 mg/dL (<=200); Estimated GFR (African America 47 (>=60 mL/min/1.73m^2); Estimated GFR (Non-African Ame 39 (>=60 mL/min/1.73m^2); Glucose 132 mg/dL (74-106); HDL Cholesterol 98 mg/dL (40-60); Potassium 3.7 mmol/L (3.5-5.1); Sodium 147 mmol/L (136-145); TSH W/ REFLEX FT4 2.526 uIU/mL (0.358-3.740); Total Protein 7.8 g/dL (6.4-8.2); Triglycerides 157 mg/dL (<=150); VLDL CHOLESTEROL 31.4 mg/dL
== END 2024-04-15 15:31 | disposition home or self-care (01) ==
PROVIDERS: PCP Nurse Practitioner
DX: E78.2 Mixed hyperlipidemia (principal); E03.9 Hypothyroidism, unspecified
CPT/HCPCS: 36415; 80053; 80061; 84443

== ENCOUNTER 2024-05-08 11:11 | Outpatient (OUT) | payer MEDICARE, MEDICAID, SELFPAY ==
--- OUTSIDE RECORDS SUMMARY | 2024-05-08 11:27 | XMS_ITS | CCD ---
Author Organization [facility] CliniSyar Care Team Providers Care Mail Sorter Name Role Phone Nini Pelletier Unavailable Mildred [...] Reaves Primary Care Provider Rigo MALIK, [facility] P rovider RADHA SIERRA Primary Care Unavailabl e Rigo MALIK, [facility] Primary Care P rovider LEONARDO LENZ Primary Care Physician Shammo RECORD MAKER, Leonardo(Historical) Primary Care Provid er Unavailable Janie [...] Christopher R Attending Unavailable Rigo MALIK, [facility] Primary Care P rovider KADEN GOLDEN Attending [...] LIMA Attending Unavailabl e KARASIK ., DR ILMA Admitting Unavailabl e KARASIK ., DR LIMA Consulting Unavailroge THOMAS, DR SHANI Hernandez Consulting Unavailable Corazon Krishna Unavailable LYNN STARKEY Attending Unavailable [facility] Unavailable LYNN STARKEY Attending Unavailable LYNN STARKEY Referring Unavailable [facility] Unavailable LYNN STARKEY Referring Unavailable [facility] Unavailable DAVID ASKEW Consulting Unavailable MACKENZIE WESTON Admitting Unavailable DAMON JUAREZ Attending Unavailable [facility] Unavailable NANCY PENA Consulting Unavailable Allergies Allergy Classification Reported Allergen(s) Allergy Type Date of Onset Reaction(s) Facility (1 source) No Known Medication Allergies; Translations: [No Known Medication Allergies] Propensity to adverse reactions (disorder) [facility] Repository Medications Current Medications Medication Drug [...] 10 MG PO November 14, 2023 12:00am [place] 4-Yic-Sre-Fish Oil (2 sources) Start: 11-14-19 24 [place] 5-Prc-Knd-Fish Oil Active CAP PO November 14, 2023 [...] by giovana th once daily Potassium Chloride (Yjg-Zkpz-Hvl M20) 20 mEq oral tablet, extended release [...] Anion gap [Moles/Vol] 9 mmol/L Normal 9-16 [facility] Comment on above: Performed By: #### C RP, PE, C4, GLYHGB, CDP, IMMS, MARCELA, C3, CK, ANAX, URI, ANCACP, VD25, CP #### [employer] [address] [place] [id number] Sampler First: Lawrence Goff MD Calcium [Mass/Vol] 8.3 mg/dL Low 8.6-10.4 [facility] Comment on above: Performed By: #### C RP, PE, C4, GLYHGB, CDP, IMMS, MARCELA, C3, CK, ANAX, URI, ANCACP, VD25, CP #### [employer] [address] [place] [address] [phone] Sampler First: Lawrence Goff MD Chloride [Moles/Vol] 110 mmol/L High 98-107 [facility] Comment on above: Performed By: #### C RP, PE, C4, GLYHGB, CDP, IMMS, MARCELA, C3, CK, ANAX, URI, ANCACP, VD25, CP #### [address] [phone] Sampler First: Lawrence Goff MD CO2 [Moles/Vol] 21 mmol/L Normal 20-31 [facility] Comment on above: Performed By: #### C RP, PE, C4, GLYHGB, CDP, IMMS, MARCELA, C3, CK, ANAX, URI, ANCACP, VD25, CP #### [address] [phone] Sampler First: Lawrence Goff MD Creatinine [Mass/Vol] 1.4 mg/dL High 0.50-0.90 [facility] Comment on above: Performed By: #### C RP, PE, C4, GLYHGB, CDP, IMMS, MARCELA, C3, CK, ANAX, URI, ANCACP, VD25, CP #### [address] [id number] Sampler First: Lawrence Goff MD GFR/1.73 sq M.predicted among non-blacks MDRD (S/P/Bld) [Vol rate/Area] 44 mL/min/{1.73_m2} Low >60 [facility] Comment on above: Result Comment: These results [...] CK, ANAX, URI, ANCACP, VD25, CP #### [address] [phone] Sampler First: Lawrence Goff MD Glucose [Mass/Vol] 145 mg/dL High 74-99 [facility] Comment on above: Performed By: #### C RP, PE, C4, GLYHGB, CDP, IMMS, MARCELA, C3, CK, ANAX, URI, ANCACP, VD25, CP #### [address] [phone] Sampler First: Lawrence Goff MD Potassium [Moles/Vol] 4.6 mmol/L Normal 3.7-5.3 [facility] Comment on above: Result Comment: SPEC IMEN SLIGHTLY HEMOLYZED, RESULTS MAY BE ADVERSELY AFFECTED. Performed By: #### C RP, PE, C4, GLYHGB, CDP, IMMS, MARCELA, C3, CK, ANAX, URI, ANCACP, VD25, CP #### [address] [phone] Sampler First: Lawrence Goff MD Sodium [Moles/Vol] 140 mmol/L Normal 136-145 [facility] Comment on above: Performed By: #### C RP, PE, C4, GLYHGB, CDP, IMMS, MARCELA, C3, CK, ANAX, URI, ANCACP, VD25, CP #### [address] [phone] Sampler First: Lawrence Goff MD Urea nitrogen [Mass/Vol] 26 mg/dL High 6-20 [facility] Comment on above: Performed By: #### C RP, PE, C4, GLYHGB, CDP, IMMS, MARCELA, C3, CK, ANAX, URI, ANCACP, VD25, CP #### [address] [phone] Sampler First: Lawrence Goff MD Basic Metab w/rfx MGon 01-21 Anion gap [Moles/Vol] 7 mmol/L Low 9-16 [facility] Comment on above: Performed By: #### C RP, PE, C4, GLYHGB, CDP, IMMS, MARCELA, C3, CK, ANAX, URI, ANCACP, VD25, CP #### [address] [phone] Sampler First: Lawrence Goff MD Calcium [Mass/Vol] 7.8 mg/dL Low 8.6-10.4 [facility] Comment on above: Performed By: #### C RP, PE, C4, GLYHGB, CDP, IMMS, MARCELA, C3, CK, ANAX, URI, ANCACP, VD25, CP #### [place] [phone] Sampler First: Lawrence Goff MD Chloride [Moles/Vol] 113 mmol/L High 98-107 [facility] Comment on above: Performed By: #### C RP, PE, C4, GLYHGB, CDP, IMMS, MARCELA, C3, CK, ANAX, URI, ANCACP, VD25, CP #### [place] [phone] Sampler First: Lawrence Goff MD CO2 [Moles/Vol] 25 mmol/L Normal 20-31 [facility] Comment on above: Performed By: #### C RP, PE, C4, GLYHGB, CDP, IMMS, MARCELA, C3, CK, ANAX, URI, ANCACP, VD25, CP #### [facility] [employer] [address] [place], [place] [phone] Sampler First: Lawrence Goff MD Creatinine [Mass/Vol] 1.8 mg/dL High 0.50-0.90 [facility] Comment on above: Performed By: #### C RP, PE, C4, GLYHGB, CDP, IMMS, MARCELA, C3, CK, ANAX, URI, ANCACP, VD25, CP #### [place] [phone] Sampler First: Lawrence Goff MD GFR/1.73 sq M.predicted among non-blacks MDRD (S/P/Bld) [Vol rate/Area] 34 mL/min/{1.73_m2} Low >60 [facility] Comment on above: Result Comment: These results [...] CK, ANAX, URI, ANCACP, VD25, CP #### [place] [phone] Sampler First: Lawrence Goff MD Glucose [Mass/Vol] 146 mg/dL High 74-99 [facility] Comment on above: Performed By: #### C RP, PE, C4, GLYHGB, CDP, IMMS, MARCELA, C3, CK, ANAX, URI, ANCACP, VD25, CP #### [place] [phone] Sampler First: Lawrence Goff MD Potassium [Moles/Vol] 5.3 mmol/L Normal 3.7-5.3 [facility] Comment on above: Performed By: #### C RP, PE, C4, GLYHGB, CDP, IMMS, MARCELA, C3, CK, ANAX, URI, ANCACP, VD25, CP #### [place] [phone] Sampler First: Lawrence Goff MD Sodium [Moles/Vol] 145 mmol/L Normal 136-145 [facility] Comment on above: Performed By: #### C RP, PE, C4, GLYHGB, CDP, IMMS, MARCELA, C3, CK, ANAX, URI, ANCACP, VD25, CP #### [address] [id number] Sampler First: Lawrence Goff MD Urea nitrogen [Mass/Vol] 36 mg/dL High 6-20 [facility] Comment on above: Performed By: #### C RP, PE, C4, GLYHGB, CDP, IMMS, MARCELA, C3, CK, ANAX, URI, ANCACP, VD25, CP #### [address] [phone] Sampler First: Lawrence Goff MD Anion gap [Moles/Vol] 8 mmol/L Low 9-16 [facility] Comment on above: Performed By: #### C RP, PE, C4, GLYHGB, CDP, IMMS, MARCELA, C3, CK, ANAX, URI, ANCACP, VD25, CP #### [address] [phone] Sampler First: Lawrence Goff MD Calcium [Mass/Vol] 7.8 mg/dL Low 8.6-10.4 [facility] Comment on above: Performed By: #### C RP, PE, C4, GLYHGB, CDP, IMMS, MARCELA, C3, CK, ANAX, URI, ANCACP, VD25, CP #### [address] [phone] Sampler First: Lawrence Goff MD Chloride [Moles/Vol] 112 mmol/L High 98-107 [facility] Comment on above: Performed By: #### C RP, PE, C4, GLYHGB, CDP, IMMS, MARCELA, C3, CK, ANAX, URI, ANCACP, VD25, CP #### [address] [phone] Sampler First: Lawrence Goff MD CO2 [Moles/Vol] 25 mmol/L Normal 20-31 [facility] Comment on above: Performed By: #### C RP, PE, C4, GLYHGB, CDP, IMMS, MARCELA, C3, CK, ANAX, URI, ANCACP, VD25, CP #### [address] [phone] Sampler First: Lawrence Goff MD Creatinine [Mass/Vol] 1.8 mg/dL High 0.50-0.90 [facility] Comment on above: Performed By: #### C RP, PE, C4, GLYHGB, CDP, IMMS, MARCELA, C3, CK, ANAX, URI, ANCACP, VD25, CP #### [address] [phone] Sampler First: Lawrence Goff MD GFR/1.73 sq M.predicted among non-blacks MDRD (S/P/Bld) [Vol rate/Area] 35 mL/min/{1.73_m2} Low >60 [facility] Comment on above: Result Comment: These results [...] CK, ANAX, URI, ANCACP, VD25, CP #### [address] [phone] Sampler First: Lawrence Goff MD Glucose [Mass/Vol] 96 mg/dL Normal 74-99 [facility] Comment on above: Performed By: #### C RP, PE, C4, GLYHGB, CDP, IMMS, MARCELA, C3, CK, ANAX, URI, ANCACP, VD25, CP #### [address] [phone] Sampler First: Lawrence Goff MD Potassium [Moles/Vol] 4.9 mmol/L Normal 3.7-5.3 [facility] Comment on above: Performed By: #### C RP, PE, C4, GLYHGB, CDP, IMMS, MARCELA, C3, CK, ANAX, URI, ANCACP, VD25, CP #### [address] [phone] Sampler First: Lawrence Goff MD Sodium [Moles/Vol] 145 mmol/L Normal 136-145 [facility] Comment on above: Performed By: #### C RP, PE, C4, GLYHGB, CDP, IMMS, MARCELA, C3, CK, ANAX, URI, ANCACP, VD25, CP #### [address] [id number] Sampler First: Lawrence Goff MD Urea nitrogen [Mass/Vol] 38 mg/dL High 6-20 [facility] Comment on above: Performed By: #### C RP, PE, C4, GLYHGB, CDP, IMMS, MARCELA, C3, CK, ANAX, URI, ANCACP, VD25, CP #### [address] [phone] Sampler First: Lawrence Goff MD Prot. Electroph, Blon 2023 Pathologist Review: ELECTRONICALLY SHAWN MOSS M.D. Normal [facility] Comment on above: Performed By: #### C RP, PE, C4, GLYHGB, CDP, IMMS, MARCELA, C3, CK, ANAX, URI, ANCACP, VD25, CP #### [address] [phone] Sampler First: Lawrence Goff MD Prot. Elect-Interp NORMAL ELECTROPHORET IC PATTERN Normal [facility] Comment on above: Performed By: #### C RP, PE, C4, GLYHGB, CDP, IMMS, MARCELA, C3, CK, ANAX, URI, ANCACP, VD25, CP #### [address] [phone] Sampler First: Lawrence Goff MD MARC Screen w/reflexon 2023 MARC Screen Negative Normal NEG [facility] Comment on above: Performed By: #### C RP, PE, C4, GLYHGB, CDP, IMMS, MARCELA, C3, CK, ANAX, URI, ANCACP, VD25, CP #### [place] [phone] Sampler First: Lawrence Goff MD Anti-dsDNA <0.5 Normal <10.0 [facility] Comment on above: Result Comment: Reference Range: <10.0 Negative 10.0-15.0 Equivocal >15.0 Positive Performed By: #### C RP, PE, C4, GLYHGB, CDP, IMMS, MARCELA, C3, CK, ANAX, URI, ANCACP, VD25, CP #### [place] [phone] Sampler First: Lawrence Goff MD TEREZA Screen 0.4 U/mL Normal <0.7 [facility] Comment on above: Result Comment: Reference Range: <0.7 Negative 0.7-1.0 Equivocal >1.0 Positive TEREZA Screen includes U1RNP,RNP70,Sm,Ro(SS-A),La(SS-B),CENP,Scl-70,Orin-1 Performed By: #### C RP, PE, C4, GLYHGB, CDP, IMMS, MARCELA, C3, CK, ANAX, URI, ANCACP, VD25, CP #### [address] [phone] Sampler First: Lawrence Goff MD Basic Metab w/rfx MGon 01-20 Anion gap [Moles/Vol] 12 mmol/L Normal 9-16 [facility] Comment on above: Performed By: #### C RP, PE, C4, GLYHGB, CDP, IMMS, MARCELA, C3, CK, ANAX, URI, ANCACP, VD25, CP #### [address] [phone] Sampler First: Lawrence Goff MD Calcium [Mass/Vol] 8.4 mg/dL Low 8.6-10.4 [facility] Comment on above: Performed By: #### C RP, PE, C4, GLYHGB, CDP, IMMS, MARCELA, C3, CK, ANAX, URI, ANCACP, VD25, CP #### [address] [phone] Sampler First: Lawrence Goff MD Chloride [Moles/Vol] 101 mmol/L Normal 98-107 [facility] Comment on above: Performed By: #### C RP, PE, C4, GLYHGB, CDP, IMMS, MARCELA, C3, CK, ANAX, URI, ANCACP, VD25, CP #### [address] [phone] Sampler First: Lawrence Goff MD CO2 [Moles/Vol] 32 mmol/L High 20-31 [facility] Comment on above: Performed By: #### C RP, PE, C4, GLYHGB, CDP, IMMS, MARCELA, C3, CK, ANAX, URI, ANCACP, VD25, CP #### [facility] [employer] [address] [place] [address] [phone] Sampler First: Lawrence Goff MD Creatinine [Mass/Vol] 2.4 mg/dL High 0.50-0.90 [facility] Comment on above: Performed By: #### C RP, PE, C4, GLYHGB, CDP, IMMS, MARCELA, C3, CK, ANAX, URI, ANCACP, VD25, CP #### [address] [phone] Sampler First: Lawrence Goff MD GFR/1.73 sq M.predicted among non-blacks MDRD (S/P/Bld) [Vol rate/Area] 24 mL/min/{1.73_m2} Low >60 [facility] Comment on above: Result Comment: These results [...] CK, ANAX, URI, ANCACP, VD25, CP #### [place] [phone] Sampler First: Lawrence Goff MD Glucose [Mass/Vol] 140 mg/dL High 74-99 [facility] Comment on above: Performed By: #### C RP, PE, C4, GLYHGB, CDP, IMMS, MARCELA, C3, CK, ANAX, URI, ANCACP, VD25, CP #### [place] [phone] Sampler First: Lawrence Goff MD Potassium [Moles/Vol] 4.5 mmol/L Normal 3.7-5.3 [facility] Comment on above: Performed By: #### C RP, PE, C4, GLYHGB, CDP, IMMS, MARCELA, C3, CK, ANAX, URI, ANCACP, VD25, CP #### [address] [id number] Sampler First: Lawrence Goff MD Sodium [Moles/Vol] 145 mmol/L Normal 136-145 [facility] Comment on above: Performed By: #### C RP, PE, C4, GLYHGB, CDP, IMMS, MARCELA, C3, CK, ANAX, URI, ANCACP, VD25, CP #### [address] [phone] Sampler First: Lawrence Goff MD Urea nitrogen [Mass/Vol] 61 mg/dL High 6-20 [facility] Comment on above: Performed By: #### C RP, PE, C4, GLYHGB, CDP, IMMS, MARCELA, C3, CK, ANAX, URI, ANCACP, VD25, CP #### [address] [phone] Sampler First: Lawrence Goff MD Anion gap [Moles/Vol] 12 mmol/L Normal 9-16 [facility] Comment on above: Performed By: #### C RP, PE, C4, GLYHGB, CDP, IMMS, MARCELA, C3, CK, ANAX, URI, ANCACP, VD25, CP #### [address] [phone] Sampler First: Lawrence Goff MD Calcium [Mass/Vol] 8.7 mg/dL Normal 8.6-10.4 [facility] Comment on above: Performed By: #### C RP, PE, C4, GLYHGB, CDP, IMMS, MARCELA, C3, CK, ANAX, URI, ANCACP, VD25, CP #### [address] [phone] Sampler First: Lawrence Goff MD Chloride [Moles/Vol] 100 mmol/L Normal 98-107 [facility] Comment on above: Performed By: #### C RP, PE, C4, GLYHGB, CDP, IMMS, MARCELA, C3, CK, ANAX, URI, ANCACP, VD25, CP #### [address] [phone] Sampler First: Lawrence Goff MD CO2 [Moles/Vol] 32 mmol/L High 20-31 [facility] Comment on above: Performed By: #### C RP, PE, C4, GLYHGB, CDP, IMMS, MARCELA, C3, CK, ANAX, URI, ANCACP, VD25, CP #### [address] [phone] Sampler First: Lawrence Goff MD Creatinine [Mass/Vol] 2.6 mg/dL High 0.50-0.90 [facility] Comment on above: Performed By: #### C RP, PE, C4, GLYHGB, CDP, IMMS, MARCELA, C3, CK, ANAX, URI, ANCACP, VD25, CP #### [address] [phone] Sampler First: Lawrence Goff MD GFR/1.73 sq M.predicted among non-blacks MDRD (S/P/Bld) [Vol rate/Area] 22 mL/min/{1.73_m2} Low >60 [facility] Comment on above: Result Comment: These results [...] CK, ANAX, URI, ANCACP, VD25, CP #### [address] [phone] Sampler First: Lawrence Goff MD Glucose [Mass/Vol] 178 mg/dL High 74-99 [facility] Comment on above: Performed By: #### C RP, PE, C4, GLYHGB, CDP, IMMS, MARCELA, C3, CK, ANAX, URI, ANCACP, VD25, CP #### [address], [place] [phone] Sampler First: Lawrence Goff MD Potassium [Moles/Vol] 3.6 mmol/L Low 3.7-5.3 [facility] Comment on above: Performed By: #### C RP, PE, C4, GLYHGB, CDP, IMMS, MARCELA, C3, CK, ANAX, URI, ANCACP, VD25, CP #### [address] [id number] Sampler First: Lawrence Goff MD Sodium [Moles/Vol] 144 mmol/L Normal 136-145 [facility] Comment on above: Performed By: #### C RP, PE, C4, GLYHGB, CDP, IMMS, MARCELA, C3, CK, ANAX, URI, ANCACP, VD25, CP #### [place] [phone] Sampler First: Lawrence Goff MD Urea nitrogen [Mass/Vol] 65 mg/dL High 6-20 [facility] Comment on above: Performed By: #### C RP, PE, C4, GLYHGB, CDP, IMMS, MARCELA, C3, CK, ANAX, URI, ANCACP, VD25, CP #### [address] [phone] Sampler First: Lawrence Goff MD Anion gap [Moles/Vol] 16 mmol/L Normal 9-16 [facility] Comment on above: Performed By: #### C RP, PE, C4, GLYHGB, CDP, IMMS, MARCELA, C3, CK, ANAX, URI, ANCACP, VD25, CP #### [place] [phone] Sampler First: Lawrence Goff MD Calcium [Mass/Vol] 9.7 mg/dL Normal 8.6-10.4 [facility] Comment on above: Performed By: #### C RP, PE, C4, GLYHGB, CDP, IMMS, MARCELA, C3, CK, ANAX, URI, ANCACP, VD25, CP #### [address] [phone] Sampler First: Lawrence Goff MD Chloride [Moles/Vol] 104 mmol/L Normal 98-107 [facility] Comment on above: Performed By: #### C RP, PE, C4, GLYHGB, CDP, IMMS, MARCELA, C3, CK, ANAX, URI, ANCACP, VD25, CP #### [address] [phone] Sampler First: Lawrence Goff MD CO2 [Moles/Vol] 22 mmol/L Normal 20-31 [facility] Comment on above: Performed By: #### C RP, PE, C4, GLYHGB, CDP, IMMS, MARCELA, C3, CK, ANAX, URI, ANCACP, VD25, CP #### [address] [phone] Sampler First: Lawrence Goff MD Creatinine [Mass/Vol] 2.4 mg/dL High 0.50-0.90 [facility] Comment on above: Performed By: #### C RP, PE, C4, GLYHGB, CDP, IMMS, MARCELA, C3, CK, ANAX, URI, ANCACP, VD25, CP #### [address] [phone] Sampler First: Lawrence Goff MD GFR/1.73 sq M.predicted among non-blacks MDRD (S/P/Bld) [Vol rate/Area] 24 mL/min/{1.73_m2} Low >60 [facility] Comment on above: Result Comment: These results [...] CK, ANAX, URI, ANCACP, VD25, CP #### [address] [phone] Sampler First: Lawrence Goff MD Glucose [Mass/Vol] 107 mg/dL High 74-99 [facility] Comment on above: Performed By: #### C RP, PE, C4, GLYHGB, CDP, IMMS, MARCELA, C3, CK, ANAX, URI, ANCACP, VD25, CP #### [address] [id number] Sampler First: Lawrence Goff MD Potassium [Moles/Vol] 4.2 mmol/L Normal 3.7-5.3 [facility] Comment on above: Performed By: #### C RP, PE, C4, GLYHGB, CDP, IMMS, MARCELA, C3, CK, ANAX, URI, ANCACP, VD25, CP #### [address] [phone] Sampler First: Lawrence Goff MD Sodium [Moles/Vol] 142 mmol/L Normal 136-145 [facility] Comment on above: Performed By: #### C RP, PE, C4, GLYHGB, CDP, IMMS, MARCELA, C3, CK, ANAX, URI, ANCACP, VD25, CP #### [address] [phone] Sampler First: Lawrence Goff MD Urea nitrogen [Mass/Vol] 68 mg/dL High 6-20 [facility] Comment on above: Performed By: #### C RP, PE, C4, GLYHGB, CDP, IMMS, MARCELA, C3, CK, ANAX, URI, ANCACP, VD25, CP #### [address] [phone] Sampler First: Lawrence Goff MD Eosinophils, Urineon 024 Eosinophils, Urine None Seen Normal NSN [facility] Comment on above: Performed By: #### C RP, PE, C4, GLYHGB, CDP, IMMS, MARCELA, C3, CK, ANAX, URI, ANCACP, VD25, CP #### [address] [phone] Sampler First: Lawrence Goff MD Hemoglobin A1Con 01-21-2024 Glucose [Mass/Vol] 137 mg/dL Normal [facility] Comment on above: Result Comment: The ADA and AACC recommend providing the estimated average glucose result to permit better patient understanding of their HBA1c result. Performed By: #### C RP, PE, C4, GLYHGB, CDP, IMMS, MARCELA, C3, CK, ANAX, URI, ANCACP, VD25, CP #### [address] [phone] Sampler First: Lawrence Goff MD HbA1c (Bld) [Mass fraction] 6.4 % High 4.0-6.0 [facility] Comment on above: Performed By: #### C RP, PE, C4, GLYHGB, CDP, IMMS, MARCELA, C3, CK, ANAX, URI, ANCACP, VD25, CP #### [address] [phone] Sampler First: Lawrence Goff MD Lipid Profileon 01-21-2024 Cholesterol [Mass/Vol] 163 mg/dL Normal 0-199 [facility] Comment on above: Result Comment: Cholesterol Guidelines: <200 Desirable 200-240 Borderline >240 Undesirable Performed By: #### C RP, PE, C4, GLYHGB, CDP, IMMS, MARCELA, C3, CK, ANAX, URI, ANCACP, VD25, CP #### [address] [phone] Sampler First: Lawrence Goff MD Cholesterol in HDL [Mass/Vol] 47 mg/dL Normal >40 [facility] Comment on above: Result Comment: HDL Guidelines: <40 Undesirable 40-59 Borderline >59 Desirable Performed By: #### C RP, PE, C4, GLYHGB, CDP, IMMS, MARCELA, C3, CK, ANAX, URI, ANCACP, VD25, CP #### [address] [phone] Sampler First: Lawrence Goff MD Cholesterol in LDL [Mass/Vol] 102 mg/dL High 0-100 [facility] Comment on above: Result Comment: LDL Guidelines: <100 Desirable 100-129 Near to/above Desirable 130-159 Borderline >159 Undesirable Direct (measured) LDL and calculated LDL are not interchangeable tests. Performed By: #### C RP, PE, C4, GLYHGB, CDP, IMMS, MARCELA, C3, CK, ANAX, URI, ANCACP, VD25, CP #### [address] [id number] Sampler First: Lawrence Goff MD Cholesterol in VLDL [Mass/Vol] 14 mg/dL Normal [facility] Comment on above: Performed By: #### C RP, PE, C4, GLYHGB, CDP, IMMS, MARCELA, C3, CK, ANAX, URI, ANCACP, VD25, CP #### [address] [phone] Sampler First: Lawrence Goff MD Cholesterol.total/Cho lesterol in HDL [Mass ratio] 3.0 {ratio} Normal [facility] Comment on above: Performed By: #### C RP, PE, C4, GLYHGB, CDP, IMMS, MARCELA, C3, CK, ANAX, URI, ANCACP, VD25, CP #### [address] [id number] Sampler First: Lawrence Goff MD Triglyceride [Mass/Vol] 71 mg/dL Normal <150 [facility] Comment on above: Result Comment: Triglyceride Guidelines: <150 Desirable 150-199 Borderline 200-499 High >499 Very high Based on AHA Guidelines for fasting triglyceride, February 2012. Performed By: #### C RP, PE, C4, GLYHGB, CDP, IMMS, MARCELA, C3, CK, ANAX, URI, ANCACP, VD25, CP #### [address] [phone] Sampler First: Lawrence Goff MD Neutrophil Cytopl Abon 01-20 MPO-ANCA 0.4 AU/mL Normal 0.0-3.5 [facility] Comment on above: Result Comment: Reference Range: <3.5 Negative 3.5-5.0 Equivocal >5.0 Positive Performed By: #### C RP, PE, C4, GLYHGB, CDP, IMMS, MARCELA, C3, CK, ANAX, URI, ANCACP, VD25, CP #### [address] [id number] Sampler First: Lawrence Goff MD PR3-ANCA 0.8 AU/mL Normal 0.0-2.0 [facility] Comment on above: Result Comment: Reference Range: <2.0 Negative 2.0-3.0 Equivocal >3.0 Positive Performed By: #### C RP, PE, C4, GLYHGB, CDP, IMMS, MARCELA, C3, CK, ANAX, URI, ANCACP, VD25, CP #### [address] [id number] Sampler First: Lawrence Goff MD Prot. Electroph, Blon 2023 Albumin [Mass/Vol] 4.2 g/dL Normal 3.2-5.2 [facility] Comment on above: Performed By: #### C RP, PE, C4, GLYHGB, CDP, IMMS, MARCELA, C3, CK, ANAX, URI, ANCACP, VD25, CP #### [address] [id number] Sampler First: Lawrence Goff MD Albumin, % 60 % Normal 45-65 [facility] Comment on above: Performed By: #### C RP, PE, C4, GLYHGB, CDP, IMMS, MARCELA, C3, CK, ANAX, URI, ANCACP, VD25, CP #### [address] [id number] Sampler First: Lawrence Goff MD Iazvy-4-xwjqxfbti 0.3 g/dL Normal 0.1-0.4 [facility] Comment on above: Performed By: #### C RP, PE, C4, GLYHGB, CDP, IMMS, MARCELA, C3, CK, ANAX, URI, ANCACP, VD25, CP #### [address] [id number] Sampler First: Lawrence Goff MD Ntuzp-7-akncnumks,% 5 % Normal 3-6 [facility] Comment on above: Performed By: #### C RP, PE, C4, GLYHGB, CDP, IMMS, MARCELA, C3, CK, ANAX, URI, ANCACP, VD25, CP #### [address] [id number] Sampler First: Lawrence Goff MD Yvmst-7-qwmbaglht 0.7 g/dL Normal 0.5-0.9 [facility] Comment on above: Performed By: #### C RP, PE, C4, GLYHGB, CDP, IMMS, MARCELA, C3, CK, ANAX, URI, ANCACP, VD25, CP #### [address] [id number] Sampler First: Lawrence Goff MD Msetk-6-extivfqzz,% 10 % Normal 6-13 [facility] Comment on above: Performed By: #### C RP, PE, C4, GLYHGB, CDP, IMMS, MARCELA, C3, CK, ANAX, URI, ANCACP, VD25, CP #### [address] [id number] Sampler First: Lawrence Goff MD Beta-globulins 0.9 g/dL Normal 0.5-1.1 [facility] Comment on above: Performed By: #### C RP, PE, C4, GLYHGB, CDP, IMMS, MARCELA, C3, CK, ANAX, URI, ANCACP, VD25, CP #### [address] [id number] Sampler First: Lawrence Goff MD Beta-globulins,% 12 % Normal 11-19 [facility] Comment on above: Performed By: #### C RP, PE, C4, GLYHGB, CDP, IMMS, MARCELA, C3, CK, ANAX, URI, ANCACP, VD25, CP #### [address] [id number] Sampler First: Lawrence Goff MD Gamma-globulins 0.9 g/dL Normal 0.5-1.5 [facility] Comment on above: Performed By: #### C RP, PE, C4, GLYHGB, CDP, IMMS, MARCELA, C3, CK, ANAX, URI, ANCACP, VD25, CP #### [address] [id number] Sampler First: Lawrence Goff MD Gamma-globulins,% 13 % Normal 9-20 [facility] Comment on above: Performed By: #### C RP, PE, C4, GLYHGB, CDP, IMMS, MARCELA, C3, CK, ANAX, URI, ANCACP, VD25, CP #### [address] [id number] Sampler First: Lawrence Goff MD Total Prot. Sum 7.0 g/dL Normal 6.3-8.2 [facility] Comment on above: Performed By: #### C RP, PE, C4, GLYHGB, CDP, IMMS, MARCELA, C3, CK, ANAX, URI, ANCACP, VD25, CP #### [address] [address] Sampler First: Lawrence Goff MD Total Prot. Sum,% 100 % Normal 98-102 [facility] Comment on above: Performed By: #### C RP, PE, C4, GLYHGB, CDP, IMMS, MARCELA, C3, CK, ANAX, URI, ANCACP, VD25, CP #### [address] [address] Sampler First: Lawrence Goff MD Protein [Mass/Vol] 6.9 g/dL Normal 6.6-8.7 [facility] Comment on above: Performed By: #### C RP, PE, C4, GLYHGB, CDP, IMMS, MARCELA, C3, CK, ANAX, URI, ANCACP, VD25, CP #### [address] [address] Sampler First: Lawrence Goff MD Protein,Tot,[place] 2023 Creatinine [Mass/Vol] 55.8 mg/dL Normal 28.0-217.0 [facility] Comment on above: Performed By: #### C RP, PE, C4, GLYHGB, CDP, IMMS, MARCELA, C3, CK, ANAX, URI, ANCACP, VD25, CP #### [address] [address] Sampler First: Lawrence Goff MD Tot Prot. Conc. 8 mg/dL Normal [facility] Comment on above: Result Comment: No n ormal range established. Performed By: #### C RP, PE, C4, GLYHGB, CDP, IMMS, MARCELA, C3, CK, ANAX, URI, ANCACP, VD25, CP #### [address] [place] [id number] Sampler First: Lawrence Goff MD TP/Cre Ratio 0.14 Normal [facility] Comment on above: Performed By: #### C RP, PE, C4, GLYHGB, CDP, IMMS, MARCELA, C3, CK, ANAX, URI, ANCACP, VD25, CP #### [address] [id number] Sampler First: Lawrence Goff MD TSH w/reflex to FT4on 2023 Thyroid Stim. Horm. 2.03 uIU/mL Normal 0.27-4.20 [facility] Comment on above: Performed By: #### C RP, PE, C4, GLYHGB, CDP, IMMS, MARCELA, C3, CK, ANAX, URI, ANCACP, VD25, CP #### [address] [id number] Sampler First: Lawrence Goff MD US RETROPERITONEAL LIMITEDon 01-21-2024 [...] Nancy Medina MD 01/21/24 Final result Normal [facility] C-Reactive Proteinon 024 CRP [Mass/Vol] mg/L Normal 0.0-5.0 [facility] Comment on above: Performed By: #### C RP, PE, C4, GLYHGB, CDP, IMMS, MARCELA, C3, CK, ANAX, URI, ANCACP, VD25, CP #### [address] [address] Sampler First: Lawrence Goff MD C3on 01-20-2024 C3 133 mg/dL Normal 90-180 [facility] Comment on above: Performed By: #### C RP, PE, C4, GLYHGB, CDP, IMMS, MARCELA, C3, CK, ANAX, URI, ANCACP, VD25, CP #### [address] [id number] Sampler First: Lawrence Goff MD C4on 01-20-2024 C4 29 mg/dL Normal 10-40 [facility] Comment on above: Performed By: #### C RP, PE, C4, GLYHGB, CDP, IMMS, MARCELA, C3, CK, ANAX, URI, ANCACP, VD25, CP #### [address] [id number] Sampler First: Lawrence Goff MD CBC AND AUTO DIFFon 01-20-20 24 ABSOLUTE BASOPHIL 0.0 X10E9/L Normal 0.0-0.2 [facility] Comment on above: Performed By: #### Ramila CAIN, 25459-0, CMP, , 65989-6 #### [facility] ([id number]) [address] [place] [address] 66162 ABSOLUTE NEUTROPHIL 9.5 X10E9/L High 1.5-6.6 [facility] Comment on above: Performed By: #### C BCA, 65906-5, CMP, , 51301-2 #### [facility] ([id number]) [address] [place] [address] 80463 Basophils/100 WBC (Bld) 0.2 % Normal [facility] Comment on above: Performed By: #### C BCA, 52948-7, CMP, , 80458-0 #### [facility] ([id number]) [address] [place] [address] 62812 Eosinophils (Bld) [#/Vol] 0.0 10*3/uL Normal 0.0-0.4 [facility] Comment on above: Performed By: #### Ramila CAIN, 85914-6, CMP, 02407-3, 34799-2 #### [facility] ([id number]) [address] [place] [address] 47895 Eosinophils/100 WBC (Bld) 0.2 % Normal [facility] Comment on above: Performed By: #### Ramila CAIN, 91553-5, CMP, , 24294-4 #### [facility] ([id number]) [address] [place] [address] 25854 Erythrocyte distribution width (RBC) [Ratio] 15.8 % High 11.5-15.0 [facility] Comment on above: Performed By: #### Ramila CAIN, 76795-3, CMP, , 73294-6 #### [facility] ([id number]) [address] [place] [address] 54015 Hematocrit (Bld) [Volume fraction] 37.3 % Normal 35-47 [facility] Comment on above: Performed By: #### Ramila CAIN, 43084-7, CMP, , 16416-7 #### [facility] ([id number]) [address] [place] [address] 75614 Hemoglobin (Bld) [Mass/Vol] 12.0 g/dL Normal 11.7-15.5 [facility] Comment on above: Performed By: #### Ramila CAIN, 07582-8, CMP, 32737-7, 08636-3 #### [facility] ([id number]) [address] [place] [address] 98123 Lymphocytes (Bld) [#/Vol] 1.2 10*3/uL Normal 1.0-3.5 [facility] Comment on above: Performed By: #### Ramila CAIN, 23229-2, CMP, , 59818-1 #### [facility] ([id number]) [address] [place] [address] 65330 Lymphocytes/100 WBC (Bld) 10.8 % Normal [facility] Comment on above: Performed By: #### Ramila CAIN, 88215-9, CMP, , 71187-9 #### [facility] ([id number]) [address] [place] [address] 23126 MCH (RBC) [Entitic mass] 30.7 pg Normal 27-34 [facility] Comment on above: Performed By: #### Ramila CAIN, 49834-3, CMP, , 91026-2 #### [facility] ([id number]) [address] [place] [address] 10179 MCHC (RBC) [Mass/Vol] 32.2 g/dL Normal 32-36 [facility] Comment on above: Performed By: #### Ramila CAIN, 19440-2, CMP, , 05305-9 #### [facility] ([id number]) [address] [place] [address] 34631 MCV (RBC) [Entitic vol] 95 fL Normal 80-100 [facility] Comment on above: Performed By: #### Ramila CAIN, 20400-5, CMP, , 84511-4 #### [facility] ([id number]) [address] [place] [address] 73467 Monocytes (Bld) [#/Vol] 0.6 10*3/uL Normal 0-0.9 [facility] Comment on above: Performed By: #### Ramila CAIN, 65089-0, CMP, , 30945-4 #### [facility] ([id number]) [address] [place] [address] 90573 Monocytes/100 WBC (Bld) 5.6 % Normal [facility] Comment on above: Performed By: #### Ramila CAIN, 16071-9, CMP, 02812-8, 52614-3 #### [facility] ([id number]) [address] [place] [address] 78495 Neutrophils/100 WBC (Bld) 83.2 % Normal [facility] Comment on above: Performed By: #### Ramila CAIN, 56801-4, CMP, 45510-2, 54009-2 #### [facility] ([id number]) [address] [place] [address] 22456 Platelet mean volume (Bld) [Entitic vol] 7.9 fL Normal 7-12 [facility] Comment on above: Performed By: #### Ramila CAIN, 23840-9, CMP, , 58499-6 #### [facility] ([id number]) [address] [place] [address] 34440 Platelets (Bld) [#/Vol] 290 10*3/uL Normal 150-450 [facility] Comment on above: Performed By: #### Ramila CAIN, 76304-5, CMP, , 36223-8 #### [facility] ([id number]) [address] [place] [address] 11502 RBC COUNT 3.90 X10E12/L Normal 3.80-5.20 [facility] Comment on above: Performed By: #### Ramila CAIN, 11681-2, CMP, , 27101-9 #### [facility] ([id number]) [address] [place] [address] 75111 WBC (Bld) [#/Vol] 11.4 10*3/uL High 4.0-11.0 [facility] Comment on above: Performed By: #### C BCA, 32581-3, CMP, 33602-3, 38571-4 #### [facility] ([id number]) [address] [place] [address], [place] [address] CBC with Diffon 01-20-2024 Abs. Basophil <0.03 Normal 0.00-0.20 [facility] Comment on above: Performed By: #### C RP, PE, C4, GLYHGB, CDP, IMMS, MARCELA, C3, CK, ANAX, URI, ANCACP, VD25, CP #### [address] [id number] Sampler First: Lawrence Goff MD Abs. Eosinophil <0.03 Normal 0.00-0.44 [facility] Comment on above: Performed By: #### C RP, PE, C4, GLYHGB, CDP, IMMS, MARCELA, C3, CK, ANAX, URI, ANCACP, VD25, CP #### [address] [id number] Sampler First: Lawrence Goff MD Abs.Imm.Granulocyte 0.03 k/uL Normal 0.00-0.30 [facility] Comment on above: Performed By: #### C RP, PE, C4, GLYHGB, CDP, IMMS, MARCELA, C3, CK, ANAX, URI, ANCACP, VD25, CP #### [facility] [employer] [address] [place], [place] [id number] Sampler First: Lawrence Goff MD Abs.Neutrophil (Seg) 7.50 k/uL Normal 1.50-8.10 [facility] Comment on above: Performed By: #### C RP, PE, C4, GLYHGB, CDP, IMMS, MARCELA, C3, CK, ANAX, URI, ANCACP, VD25, CP #### [facility] [employer] [address] [place] [address] [id number] Sampler First: Lawrence Goff MD Basophils/100 WBC (Bld) 0 % Normal 0-2 [facility] Comment on above: Performed By: #### C RP, PE, C4, GLYHGB, CDP, IMMS, MARCELA, C3, CK, ANAX, URI, ANCACP, VD25, CP #### [address] [address] Sampler First: Lawrence Goff MD Eosinophils/100 WBC (Bld) 0 % Low 1-4 [facility] Comment on above: Performed By: #### C RP, PE, C4, GLYHGB, CDP, IMMS, MARCELA, C3, CK, ANAX, URI, ANCACP, VD25, CP #### [address] [address] Sampler First: Lawrence Goff MD Erythrocyte distribution width (RBC) [Ratio] 15.2 % High 11.8-14.4 [facility] Comment on above: Performed By: #### C RP, PE, C4, GLYHGB, CDP, IMMS, MARCELA, C3, CK, ANAX, URI, ANCACP, VD25, CP #### [place] [id number] Sampler First: Lawrence Goff MD Hematocrit (Bld) [Volume fraction] 32.3 % Low 36.3-47.1 [facility] Comment on above: Performed By: #### C RP, PE, C4, GLYHGB, CDP, IMMS, MARCELA, C3, CK, ANAX, URI, ANCACP, VD25, CP #### [place] [id number] Sampler First: Lawrence Goff MD Hemoglobin (Bld) [Mass/Vol] 10.7 g/dL Low 11.9-15.1 [facility] Comment on above: Performed By: #### C RP, PE, C4, GLYHGB, CDP, IMMS, MARCELA, C3, CK, ANAX, URI, ANCACP, VD25, CP #### [address] [address] Sampler First: Lawrence Goff MD Immature granulocytes/100 WBC (Bld) 0 % Normal 0 [facility] Comment on above: Performed By: #### C RP, PE, C4, GLYHGB, CDP, IMMS, MARCELA, C3, CK, ANAX, URI, ANCACP, VD25, CP #### [address] [id number] Sampler First: Lawrence Goff MD Lymphocytes (Bld) [#/Vol] 1.54 10*3/uL Normal 1.10-3.70 [facility] Comment on above: Performed By: #### C RP, PE, C4, GLYHGB, CDP, IMMS, MARCELA, C3, CK, ANAX, URI, ANCACP, VD25, CP #### [place] [id number] Sampler First: Lawrence Goff MD Lymphocytes/100 WBC (Bld) 15 % Low 24-43 [facility] Comment on above: Performed By: #### C RP, PE, C4, GLYHGB, CDP, IMMS, MARCELA, C3, CK, ANAX, URI, ANCACP, VD25, CP #### [place] [id number] Sampler First: Lawrence Goff MD MCH (RBC) [Entitic mass] 31.2 pg Normal 25.2-33.5 [facility] Comment on above: Performed By: #### C RP, PE, C4, GLYHGB, CDP, IMMS, MARCELA, C3, CK, ANAX, URI, ANCACP, VD25, CP #### [address] [id number] Sampler First: Lawrence Goff MD MCHC (RBC) [Mass/Vol] 33.1 g/dL Normal 28.4-34.8 [facility] Comment on above: Performed By: #### C RP, PE, C4, GLYHGB, CDP, IMMS, MARCELA, C3, CK, ANAX, URI, ANCACP, VD25, CP #### [place] [id number] Sampler First: Lawrence Goff MD MCV (RBC) [Entitic vol] 94.2 fL Normal 82.6-102.9 [facility] Comment on above: Performed By: #### C RP, PE, C4, GLYHGB, CDP, IMMS, MARCELA, C3, CK, ANAX, URI, ANCACP, VD25, CP #### [place] [address] Sampler First: Lawrence Goff MD Monocytes (Bld) [#/Vol] 0.86 10*3/uL Normal 0.10-1.20 [facility] Comment on above: Performed By: #### C RP, PE, C4, GLYHGB, CDP, IMMS, MARCELA, C3, CK, ANAX, URI, ANCACP, VD25, CP #### [place] [address] Sampler First: Lawrence Goff MD Monocytes/100 WBC (Bld) 9 % Normal 3-12 [facility] Comment on above: Performed By: #### C RP, PE, C4, GLYHGB, CDP, IMMS, MARCELA, C3, CK, ANAX, URI, ANCACP, VD25, CP #### [place] [address] Sampler First: Lawrence Goff MD Neutrophil (Seg) 76 % High 36-65 [facility] Comment on above: Performed By: #### C RP, PE, C4, GLYHGB, CDP, IMMS, MARCELA, C3, CK, ANAX, URI, ANCACP, VD25, CP #### [address] [id number] Sampler First: Lawrence Goff MD NRBC Automated 0.0 per 100 WBC Normal 0.0 [facility] Comment on above: Performed By: #### C RP, PE, C4, GLYHGB, CDP, IMMS, MARCELA, C3, CK, ANAX, URI, ANCACP, VD25, CP #### [address] [id number] Sampler First: Lawrence Goff MD Platelet mean volume (Bld) [Entitic vol] 9.6 fL Normal 8.1-13.5 [facility] Comment on above: Performed By: #### C RP, PE, C4, GLYHGB, CDP, IMMS, MARCELA, C3, CK, ANAX, URI, ANCACP, VD25, CP #### [address] [id number] Sampler First: Lawrence Goff MD Platelets (Bld) [#/Vol] 242 10*3/uL Normal 138-453 [facility] Comment on above: Performed By: #### C RP, PE, C4, GLYHGB, CDP, IMMS, MARCELA, C3, CK, ANAX, URI, ANCACP, VD25, CP #### [address] [id number] Sampler First: Lawrence Goff MD RBC (Bld) [#/Vol] 3.43 10*6/uL Low 3.95-5.11 [facility] Comment on above: Performed By: #### C RP, PE, C4, GLYHGB, CDP, IMMS, MARCELA, C3, CK, ANAX, URI, ANCACP, VD25, CP #### [address] [phone] Sampler First: Lawrence Goff MD RBC morphology finding Nom (Bld) ANISOCYTOSIS PRESENT Normal [facility] Comment on above: Performed By: #### C RP, PE, C4, GLYHGB, CDP, IMMS, MARCELA, C3, CK, ANAX, URI, ANCACP, VD25, CP #### [address] [id number] Sampler First: Lawrence Goff MD WBC (Bld) [#/Vol] 10.0 10*3/uL Normal 3.5-11.3 [facility] Comment on above: Performed By: #### C RP, PE, C4, GLYHGB, CDP, IMMS, MARCELA, C3, CK, ANAX, URI, ANCACP, VD25, CP #### [address] [id number] Sampler First: Lawrence Goff MD COMPREHENSIVE METABOLIC PANE [facility] 01-20-2024 Albumin [Mass/Vol] 4.7 g/dL Normal 3.2-5.3 [facility] Comment on above: Performed By: #### C BCA, 43806-7, CMP, 03550-6, 41004-8 #### [facility] ([id number]) [address] [place] [address] 20217 ALP [Catalytic activity/Vol] 85 U/L Normal 39-130 [facility] Comment on above: Performed By: #### C BCA, 71642-0, CMP, 73743-6, 44739-0 #### [facility] ([id number]) [address] [place] [address] 63834 ALT [Catalytic activity/Vol] 17 U/L Normal 0-31 [facility] Comment on above: Performed By: #### C BCA, 50439-1, CMP, 98377-1, 65655-7 #### [facility] ([id number]) [address] [place] [address] 26604 Anion gap [Moles/Vol] 8 mmol/L Normal 5-15 [facility] Comment on above: Performed By: #### C BCA, 91489-3, CMP, 42547-0, 65522-2 #### [facility] ([id number]) [address] [place] [address] 76770 AST [Catalytic activity/Vol] 19 U/L Normal 0-41 [facility] Comment on above: Performed By: #### C BCA, 75646-3, CMP, 53217-3, 30057-4 #### [facility] ([id number]) [address] [place] [address] 89407 Bilirubin [Mass/Vol] 0.3 mg/dL Normal 0.3-1.2 [facility] Comment on above: Performed By: #### C BCA, 30454-2, CMP, 78676-9, 85270-1 #### [facility] ([id number]) [address] [place] [address] 31338 Calcium [Mass/Vol] 9.3 mg/dL Normal 8.5-10.5 [facility] Comment on above: Performed By: #### C BCA, 57139-7, CMP, , 08177-9 #### [facility] ([id number]) [address] [place] [address] 05995 Chloride [Moles/Vol] 112 mmol/L High 98-109 [facility] Comment on above: Performed By: #### C BCA, 78969-5, CMP, , 37901-9 #### [facility] ([id number]) [address] [place] [address] 81488 CO2 [Moles/Vol] 14 mmol/L Low 22-32 [facility] Comment on above: Performed By: #### C BCA, 81518-0, CMP, 35796-6, 79090-6 #### [facility] ([id number]) [address] [place] [address] 39387 Creatinine [Mass/Vol] 3.53 mg/dL High 0.40-1.00 [facility] Comment on above: Result Comment: METH OD TRACEABLE TO IDMS STANDARD Performed By: #### C ANT, 83082-3, CMP, , 94250-6 #### [facility] ([id number]) [address] [place] [address] 22734 GFR/1.73 sq M.predicted among non-blacks MDRD (S/P/Bld) [Vol rate/Area] 15 mL/min/{1.73_m2} Low >59 [facility] Comment on above: Result Comment: Reported eGFR is based on the CKD-EPI 2020 equation that does not use a race coefficient. Performed By: #### C ANT, 98119-9, CMP, , 49503-7 #### [facility] ([id number]) [address] [place] [address] 20444 Glucose [Mass/Vol] 115 mg/dL High 65-99 [facility] Comment on above: Performed By: #### C ANT, 87145-7, DARLYN, , 33680-1 #### [facility] ([id number]) [address] [place] [address] 35825 Potassium [Moles/Vol] 8.7 mmol/L Critically high 3.5-5.0 [facility] Comment on above: Performed By: #### C ANT, 36738-8, CMP, , 42999-5 #### [facility] ([id number]) [address] [place] [address] 64418 Protein [Mass/Vol] 8.6 g/dL High 6.0-8.0 [facility] Comment on above: Performed By: #### C BCA, 86298-7, CMP, , 06799-1 #### [facility] ([id number]) [address] [place] [address] 88975 Sodium [Moles/Vol] 134 mmol/L Normal 134-146 [facility] Comment on above: Performed By: #### C BCA, 69842-5, CMP, 77418-0, 07208-5 #### [facility] ([id number]) [address] [place] [address], [place] [address] Urea nitrogen [Mass/Vol] 88 mg/dL High 5-23 [facility] Comment on above: Performed By: #### C BCA, 06982-3, CMP, 79329-4, 14866-5 #### [facility] ([id number]) [address] [place] [address], [place] [address] Comp Metabolic Profon 2023 Albumin [Mass/Vol] 4.4 g/dL Normal 3.5-5.2 [facility] Comment on above: Performed By: #### C RP, PE, C4, GLYHGB, CDP, IMMS, MARCELA, C3, CK, ANAX, URI, ANCACP, VD25, CP #### [facility] [employer] [address] [place] [address] [id number] Sampler First: Lawrence Goff MD Albumin/Glob Ratio 2.0 Normal 1.0-2.5 [facility] Comment on above: Performed By: #### C RP, PE, C4, GLYHGB, CDP, IMMS, MACRELA, C3, CK, ANAX, URI, ANCACP, VD25, CP #### [facility] [employer] [address] [place] [address] [id number] [employer] First: Lawrence Goff MD Alkaline Phos 87 U/L Normal 35-104 [facility] Comment on above: Performed By: #### C RP, PE, C4, GLYHGB, CDP, IMMS, MARCELA, C3, CK, ANAX, URI, ANCACP, VD25, CP #### [facility] [employer] [address] [place] [address] [phone] Sampler First: Lawrence Goff MD ALT [Catalytic activity/Vol] 18 U/L Normal 10-35 [facility] Comment on above: Performed By: #### C RP, PE, C4, GLYHGB, CDP, IMMS, MARCELA, C3, CK, ANAX, URI, ANCACP, VD25, CP #### [address] [phone] [employer] First: Lawrence Goff MD Anion gap [Moles/Vol] 15 mmol/L Normal 9-16 [facility] Comment on above: Performed By: #### C RP, PE, C4, GLYHGB, CDP, IMMS, MARCELA, C3, CK, ANAX, URI, ANCACP, VD25, CP #### [place] [id number] Sam[employer] First: Lawrence Goff MD AST [Catalytic activity/Vol] 22 U/L Normal -35 [facility] Comment on above: Performed By: #### C RP, PE, C4, GLYHGB, CDP, IMMS, MARCELA, C3, CK, ANAX, URI, ANCACP, VD25, CP #### [place] [address] Sampler First: Lawrence Goff MD Bilirubin [Mass/Vol] 0.2 mg/dL Normal 0.00-1.20 [facility] Comment on above: Performed By: #### C RP, PE, C4, GLYHGB, CDP, IMMS, MARCELA, C3, CK, ANAX, URI, ANCACP, VD25, CP #### [place] [phone] [employer] First: Lawrence Goff MD Calcium [Mass/Vol] 10.5 mg/dL High 8.6-10.4 [facility] Comment on above: Performed By: #### C RP, PE, C4, GLYHGB, CDP, IMMS, MARCELA, C3, CK, ANAX, URI, ANCACP, VD25, CP #### [address] [phone] [employer] First: Lawrence Goff MD Chloride [Moles/Vol] 110 mmol/L High 98-107 [facility] Comment on above: Performed By: #### C RP, PE, C4, GLYHGB, CDP, IMMS, MARCELA, C3, CK, ANAX, URI, ANCACP, VD25, CP #### [address] [phone] [employer] First: Lawrence Goff MD CO2 [Moles/Vol] 18 mmol/L Low 20-31 [facility] Comment on above: Performed By: #### C RP, PE, C4, GLYHGB, CDP, IMMS, MARCELA, C3, CK, ANAX, URI, ANCACP, VD25, CP #### [address] [id number] [employer]: Lawrence Goff MD Creatinine [Mass/Vol] 2.9 mg/dL High 0.50-0.90 [facility] Comment on above: Performed By: #### C RP, PE, C4, GLYHGB, CDP, IMMS, MARCELA, C3, CK, ANAX, URI, ANCACP, VD25, CP #### [address] [id number] Sampler First: Lawrence Goff MD GFR/1.73 sq M.predicted among non-blacks MDRD (S/P/Bld) [Vol rate/Area] 19 mL/min/{1.73_m2} Low >60 [facility] Comment on above: Result Comment: These results [...] CK, ANAX, URI, ANCACP, VD25, CP #### [address] [id number] Sampler First: Lawrence Goff MD Glucose [Mass/Vol] 146 mg/dL High 74-99 [facility] Comment on above: Performed By: #### C RP, PE, C4, GLYHGB, CDP, IMMS, MARCELA, C3, CK, ANAX, URI, ANCACP, VD25, CP #### [address] [id number] Sampler First: Lawrence Goff MD Potassium [Moles/Vol] 4.4 mmol/L Normal 3.7-5.3 [facility] Comment on above: Performed By: #### C RP, PE, C4, GLYHGB, CDP, IMMS, MARCELA, C3, CK, ANAX, URI, ANCACP, VD25, CP #### [place] [address] Sampler First: Lawrence Goff MD Protein [Mass/Vol] 6.9 g/dL Normal 6.6-8.7 [facility] Comment on above: Performed By: #### C RP, PE, C4, GLYHGB, CDP, IMMS, MARCELA, C3, CK, ANAX, URI, ANCACP, VD25, CP #### [address] [phone] Sampler First: Lawrence Goff MD Sodium [Moles/Vol] 143 mmol/L Normal 136-145 [facility] Comment on above: Performed By: #### C RP, PE, C4, GLYHGB, CDP, IMMS, MARCELA, C3, CK, ANAX, URI, ANCACP, VD25, CP #### [address] [id number] Sampler First: Lawrence Goff MD Urea nitrogen [Mass/Vol] 76 mg/dL High 6-20 [facility] Comment on above: Performed By: #### C RP, PE, C4, GLYHGB, CDP, IMMS, MARCELA, C3, CK, ANAX, URI, ANCACP, VD25, CP #### [address] [address] Sampler First: Lawrence Goff MD Creatine Kinaseon 01-20-2024 CK [Catalytic activity/Vol] 108 U/L Normal 26-192 [facility] Comment on above: Performed By: #### C RP, PE, C4, GLYHGB, CDP, IMMS, MARCELA, C3, CK, ANAX, URI, ANCACP, VD25, CP #### [address] [id number] Sampler First: Lawrence Goff MD Creatinine,Random Uron 01-19 Creatinine [Mass/Vol] 21.1 mg/dL Low 28.0-217.0 [facility] Comment on above: Performed By: #### C RP, PE, C4, GLYHGB, CDP, IMMS, MARCELA, C3, CK, ANAX, URI, ANCACP, VD25, CP #### [address] [address] Sampler First: Lawrence Goff MD Fibrin D-dimer DDU (PPP) [Ma ss/Vol]on 01-20-2024 D DIMER <150 Normal <255 [facility] Comment on above: Result Comment: Results <255 ng/mL DDU: The presence of a VTE can safely be excluded with a negative D-Dimer result and Wells score. A negative result doesn't exclude the possibility of DIC. The test be repeated along with other diagnostic tests if the patient's symptoms persist or worsen. [email or web address] Performed By: #### C BCA, 62461-2, CMP, 39001-4, 36387-0 #### [facility] ([id number]) [address] [place] [address] 50467 HCG ( test) Ql (U)o n 01-20-2024 Beta HCG ( test) Ql (U) Negative Normal NEG [facility] Comment on above: Performed By: #### 2 106-3 #### [facility] ([id number]) [address] [place] [address] 81781 Immunoglobulinson 01-20-2024 IgA [Mass/Vol] 254 mg/dL Normal 70-400 [facility] Comment on above: Performed By: #### C RP, PE, C4, GLYHGB, CDP, IMMS, MARCELA, C3, CK, ANAX, URI, ANCACP, VD25, CP #### [facility] [employer] [address] [place] [address] [phone] Sampler First: Lawrence Goff MD IgG [Mass/Vol] 935 mg/dL Normal 700-1600 [facility] Comment on above: Performed By: #### C RP, PE, C4, GLYHGB, CDP, IMMS, MARCELA, C3, CK, ANAX, URI, ANCACP, VD25, CP #### [facility] [employer] [address] [place] [address] [phone] Sampler First: Lawrence Goff MD IgM [Mass/Vol] 38 mg/dL Low 40-230 [facility] Comment on above: Performed By: #### C RP, PE, C4, GLYHGB, CDP, IMMS, MARCELA, C3, CK, ANAX, URI, ANCACP, VD25, CP #### [facility] [employer] [address] [place] [phone] Sampler First: Lawrence Goff MD Lactic Acidon 01-20-2024 Lactic Acid,Whole Bl 1.3 mmol/L Normal 0.7-2.1 [facility] Comment on above: Performed By: #### C RP, PE, C4, GLYHGB, CDP, IMMS, MARCELA, C3, CK, ANAX, URI, ANCACP, VD25, CP #### [employer] [address] [place] [address] [phone] Sampler First: Lawrence Goff MD MAGNESIUMon 01-20-2024 Magnesium [Mass/Vol] 2.3 mg/dL Normal 1.8-2.6 [facility] Comment on above: Performed By: #### C BCA, 49463-5, CMP, 00003-7, 36430-0 #### [facility] ([id number]) [address] [place] [address] 51440 Myoglobinon 01-20-2024 Myoglobin [Mass/Vol] 55 ng/mL Normal 25-58 [facility] Comment on above: Performed By: #### C RP, PE, C4, GLYHGB, CDP, IMMS, MARECLA, C3, CK, ANAX, URI, ANCACP, VD25, CP #### [facility] [address] [place] [address] [phone] Sampler First: Lawrence Goff MD POTASSIUMon 01-20-2024 Potassium [Moles/Vol] 4.8 mmol/L Normal 3.5-5.0 [facility] Comment on above: Performed By: #### 2 823-3 #### [facility] ([id number]) [address] [place] [address] 26453 PTH, Intacton 01-20-2024 PTH, Intact 41.0 pg/mL Normal 15-65 [facility] Comment on above: Result Comment: SAMP LES FROM PATIENTS ROUTINELY RECEIVING HIGH DOSE BIOTIN THERAPY MAY SHOW FALSELY DEPRESSED RESULTS. ADDITIONAL INFORMATION MAY BE REQUIRED FOR DIAGNOSIS. Performed By: #### C RP, PE, C4, GLYHGB, CDP, IMMS, MARCELA, C3, CK, ANAX, URI, ANCACP, VD25, CP #### [employer] [address] [place] [address] [phone] Sampler First: Lawrence Goff MD Calcium [Moles/Vol] 1.29 mmol/L Normal 1.13-1.33 [facility] Comment on above: Performed By: #### C RP, PE, C4, GLYHGB, CDP, IMMS, MARCELA, C3, CK, ANAX, URI, ANCACP, VD25, CP #### [facility] [employer] [address] [place] [address] [phone] Sampler First: Lawrence Goff MD Sodium, Random Uron 01-20-20 24 Sodium (U) [Moles/Vol] 134 mmol/L Normal [facility] Comment on above: Result Comment: No n ormal range established. Performed By: #### C RP, PE, C4, GLYHGB, CDP, IMMS, MARCELA, C3, CK, ANAX, URI, ANCACP, VD25, CP #### [address] [phone] Sampler First: Lawrence Goff MD Troponin I.cardiac High sens itivity method [Mass/Vol]on 01-20-2024 1 HOUR TROP I, HIGH SENSITIVITY <2 Normal <16 [facility] Comment on above: Performed By: #### 8 9579-7 #### [facility] ([id number]) [address] [place] [address] 82325 TROPONIN I, HIGH SENSITIVITY 2 ng/L Normal <16 [facility] Comment on above: Performed By: #### C BCA, 12284-9, CMP, 86120-9, 90754-2 #### [facility] ([id number]) [address] [place] [address] 83769 URN MACROSCOPIC NURon 2023 BILIRUBIN SANDRA Negative Normal NEG [facility] Comment on above: Performed By: #### N UM #### [facility] ([id number]) [address] [place] [address] 94514 BLOOD/HGB SANDRA Negative Normal NEG [facility] Comment on above: Performed By: #### N UM #### [facility] ([id number]) [address] [place] [address] 68585 GLUCOSE SANDRA 250 mg/dL Abnormal NEG [facility] Comment on above: Performed By: #### N UM #### [facility] ([id number]) [address] [place] [address] 63072 KETONES SANDRA Negative Normal NEG [facility] Comment on above: Performed By: #### N UM #### [facility] ([id number]) [address] [place] [address] 34559 LEUKOCYTE ESTERASE SANDRA Negative Normal NEG [facility] Comment on above: Performed By: #### N UM #### [facility] ([id number]) [address] [place] [address] 31316 NITRITE SANDRA Negative Normal NEG [facility] Comment on above: Performed By: #### N UM #### [facility] ([id number]) [address] [place] [address] 52426 PH SANDRA 5.5 Normal 5.0-8.5 [facility] Comment on above: Performed By: #### N UM #### [facility] ([id number]) [address] [place] [address] 89390 PROTEIN SANDRA Negative Normal NEG [facility] Comment on above: Performed By: #### N UM #### [facility] ([id number]) [address] [place] [address] [place] [address] SPECIFIC GRAVITY SANDRA 1.010 Normal 1.003-1.035 [facility] Comment on above: Performed By: #### N UM #### [facility] ([id number]) [address] [place] [address] 95595 UROBILINOGEN SANDRA 0.2 eu/dL Normal <1.1 [facility] Comment on above: Performed By: #### N UM #### [facility] ([id number]) [address] [facility] [place] [address] Uric Acidon 01-20-2024 Urate [Mass/Vol] 6.8 mg/dL High 2.4-5.7 [facility] Comment on above: Performed By: #### C RP, PE, C4, GLYHGB, CDP, IMMS, MARCELA, C3, CK, ANAX, URI, ANCACP, VD25, CP #### [address] [phone] Sampler First: Lawrence Goff MD Urinalysis w/ Microon 2023 Bacteria None Normal NONE [facility] Comment on above: Performed By: #### C RP, PE, C4, GLYHGB, CDP, IMMS, MARCELA, C3, CK, ANAX, URI, ANCACP, VD25, CP #### [address] [phone] Sampler First: Lawrence Goff MD Bilirubin, SemiQt,Ur Negative Normal NEG [facility] Comment on above: Performed By: #### C RP, PE, C4, GLYHGB, CDP, IMMS, MARCELA, C3, CK, ANAX, URI, ANCACP, VD25, CP #### [address] [phone] Sampler First: Lawrence Goff MD Blood, Urine Negative Normal NEG [facility] Comment on above: Performed By: #### C RP, PE, C4, GLYHGB, CDP, IMMS, MARCELA, C3, CK, ANAX, URI, ANCACP, VD25, CP #### [address] [phone] Sampler First: Lawrence Goff MD Casts None Normal 0-8 [facility] Comment on above: Result Comment: Refe rence range defined for non-centrifuged specimen. Performed By: #### C RP, PE, C4, GLYHGB, CDP, IMMS, MARCELA, C3, CK, ANAX, URI, ANCACP, VD25, CP #### [address] [address] Sampler First: Lawrence Goff MD Clarity (U) Clear Normal CLEAR [facility] Comment on above: Performed By: #### C RP, PE, C4, GLYHGB, CDP, IMMS, MARCELA, C3, CK, ANAX, URI, ANCACP, VD25, CP #### [address] [address] Sampler First: Lawrence Goff MD Color (U) Yellow Normal YEL [facility] Comment on above: Performed By: #### C RP, PE, C4, GLYHGB, CDP, IMMS, MARCELA, C3, CK, ANAX, URI, ANCACP, VD25, CP #### [address] [id number] Sampler First: Lawrence Goff MD Epithelial cells LM Ql (Urine sed) None Normal 0-5 [facility] Comment on above: Performed By: #### C RP, PE, C4, GLYHGB, CDP, IMMS, MARCELA, C3, CK, ANAX, URI, ANCACP, VD25, CP #### [address] [address] Sampler First: Lawrence Goff MD Glucose Ql (U) Negative Normal NEG [facility] Comment on above: Performed By: #### C RP, PE, C4, GLYHGB, CDP, IMMS, MARCELA, C3, CK, ANAX, URI, ANCACP, VD25, CP #### [address] [address] Sampler First: Lawrence Goff MD Ketones Ql (U) Negative Normal NEG [facility] Comment on above: Performed By: #### C RP, PE, C4, GLYHGB, CDP, IMMS, MARCELA, C3, CK, ANAX, URI, ANCACP, VD25, CP #### [address] [phone] Sampler First: Lawrence Goff MD Leukocyte esterase Test strip Ql (U) Negative Normal NEG [facility] Comment on above: Performed By: #### C RP, PE, C4, GLYHGB, CDP, IMMS, MARCELA, C3, CK, ANAX, URI, ANCACP, VD25, CP #### [place] [phone] Sampler First: Lawrence Goff MD Nitrite,Ur Negative Normal NEG [facility] Comment on above: Performed By: #### C RP, PE, C4, GLYHGB, CDP, IMMS, MARCELA, C3, CK, ANAX, URI, ANCACP, VD25, CP #### [place] [phone] Sampler First: Lawrence Goff MD PH,Ur 5.0 Normal 5.0-8.0 [facility] Comment on above: Performed By: #### C RP, PE, C4, GLYHGB, CDP, IMMS, MARCELA, C3, CK, ANAX, URI, ANCACP, VD25, CP #### [place] [phone] Sampler First: Lawrence Goff MD Protein Ql (U) Negative Normal NEG [facility] Comment on above: Performed By: #### C RP, PE, C4, GLYHGB, CDP, IMMS, MARCELA, C3, CK, ANAX, URI, ANCACP, VD25, CP #### [address] [phone] Sampler First: Lawrence Goff MD Spec. [place],Ur 1.007 Normal 1.005-1.030 [facility] Comment on above: Performed By: #### C RP, PE, C4, GLYHGB, CDP, IMMS, MARCELA, C3, CK, ANAX, URI, ANCACP, VD25, CP #### [address] [phone] Sampler First: Lawrence Goff MD Urine RBC's 0 TO 2 Normal 0-4 [facility] Comment on above: Result Comment: Refe rence range defined for non-centrifuged specimen. Performed By: #### C RP, PE, C4, GLYHGB, CDP, IMMS, MARCELA, C3, CK, ANAX, URI, ANCACP, VD25, CP #### [address] [phone] Sampler First: Lawrence Goff MD Urine WBC's 2 TO 5 Normal 0-5 [facility] Comment on above: Performed By: #### C RP, PE, C4, GLYHGB, CDP, IMMS, MARCELA, C3, CK, ANAX, URI, ANCACP, VD25, CP #### [address] [address] Sampler First: Lawrence Goff MD Urobilinogen,Ur Normal Normal 0.0-1.0 [facility] Comment on above: Performed By: #### C RP, PE, C4, GLYHGB, CDP, IMMS, MARCELA, C3, CK, ANAX, URI, ANCACP, VD25, CP #### [address] [phone] Sampler First: Lawrence Goff MD Venous Blood Gaseson 024 Body Temp. 37.0 Normal [facility] Comment on above: Performed By: #### C RP, PE, C4, GLYHGB, CDP, IMMS, MARCELA, C3, CK, ANAX, URI, ANCACP, VD25, CP #### [address] [phone] Sampler First: Lawrence Goff MD Carboxy Hgb 4.1 % Normal 0-5 [facility] Comment on above: Result Comment: Reference Range: Non-Smokers 0-2% Average Smoker 2-4% Heavy Smoker <10% Performed By: #### C RP, PE, C4, GLYHGB, CDP, IMMS, MARCELA, C3, CK, ANAX, URI, ANCACP, VD25, CP #### [address] [phone] Sampler First: Lawrence Goff MD FIO2 INFORMATION NOT PROVIDED Normal [facility] Comment on above: Performed By: #### C RP, PE, C4, GLYHGB, CDP, IMMS, MARCELA, C3, CK, ANAX, URI, ANCACP, VD25, CP #### [place] [phone] Sampler First: Lawrence Goff MD HCO3 (Bld) [Moles/Vol] 19.9 mmol/L Low 24-30 [facility] Comment on above: Performed By: #### C RP, PE, C4, GLYHGB, CDP, IMMS, MARCELA, C3, CK, ANAX, URI, ANCACP, VD25, CP #### [address] [phone] Sampler First: Lawrence Goff MD Negative Base Excess 4.3 mmol/L High 0.0-2.0 [facility] Comment on above: Performed By: #### C RP, PE, C4, GLYHGB, CDP, IMMS, MARCELA, C3, CK, ANAX, URI, ANCACP, VD25, CP #### [address] [phone] Sampler First: Lawrence Goff MD Oxygen saturation in Blood 98.3 % High 60.0-85.0 [facility] Comment on above: Performed By: #### C RP, PE, C4, GLYHGB, CDP, IMMS, MARCELA, C3, CK, ANAX, URI, ANCACP, VD25, CP #### [address] [phone] Sampler First: Lawrence Goff MD pCO2 35.1 mm Hg Low 39-55 [facility] Comment on above: Performed By: #### C RP, PE, C4, GLYHGB, CDP, IMMS, MARCELA, C3, CK, ANAX, URI, ANCACP, VD25, CP #### [address] [phone] Sampler First: Lawrence Goff MD pH (Bld) 7.371 [pH] Normal 7.320-7.420 [facility] Comment on above: Performed By: #### C RP, PE, C4, GLYHGB, CDP, IMMS, MARCELA, C3, CK, ANAX, URI, ANCACP, VD25, CP #### [address] [phone] Sampler First: Lawrence Goff MD pO2 137.0 mm Hg High 30-50 [facility] Comment on above: Performed By: #### C RP, PE, C4, GLYHGB, CDP, IMMS, MARCELA, C3, CK, ANAX, URI, ANCACP, VD25, CP #### [address] [phone] Sampler First: Lawrence Goff MD Vitamin D 25 OHon 01-20-2024 Vitamin D 25 OH 28.5 ng/mL Low 30.0-100.0 [facility] Comment on above: Result Comment: Reference Range: Vitamin D status Range Deficiency <20 ng/mL Mild Deficiency 20-30 ng/mL Sufficiency 30-100 ng/mL Toxicity >100 ng/mL Performed By: #### C RP, PE, C4, GLYHGB, CDP, IMMS, MARCELA, C3, CK, ANAX, URI, ANCACP, VD25, CP #### [address] [place] [address] Sampler First: Lawrence Goff MD XR CHEST 1 VWon 01-20-2024 XR CHEST 1 VW XR CHEST 1 VW XR CHEST 1 VW History: Near syncope. One view study. Comparison: None Impression: * No significant interval change.No focal airspace disease or infiltrate is appreciated. No congestive features or large effusion. No pneumothorax. Finalized by Keisha Conway MD on 01/20/2024 1:47 PM Normal [facility] Erythrocyte distribution wid th Auto (RBC) [Ratio]on 11-05-2023 Erythrocyte distribution width (RBC) [Ratio] 13.8 % 11.0-15.0 [facility] Estimated glomerular filtrat ion rate (GFR) non- Americanon 11-05-2023 GFR/1.73 sq M.predicted among non-blacks MDRD (S/P/Bld) [Vol rate/Area] 35 mL/min/{1.73_m2} >=60 [facility] Globulin Calc (S) [Mass/Vol] on 11-05-2023 Globulin (S) [Mass/Vol] 3.7 g/dL [facility] Hematocrit Auto (Bld) [Volum e fraction]on 11-05-2023 Hematocrit (Bld) [Volume fraction] 36.6 % 36.0-48.0 [facility] Hemoglobin [Mass/volume] in Bloodon 11-05-2023 Hemoglobin (Bld) [Mass/Vol] 12.1 g/dL 12.0-16.0 [facility] Laboratory - Chemistry and C hemistry - challengeon 11-05-2023 Albumin [Mass/Vol] 3.9 g/dL 3.4-5.0 [facility] ALP [Catalytic activity/Vol] 127 U/L 46-116 [facility] ALT [Catalytic activity/Vol] 19 U/L 14-59 [facility] AST [Catalytic activity/Vol] 15 U/L 15-37 [facility] Bilirubin [Mass/Vol] 0.2 mg/dL 0.2-1.0 [facility] Calcium [Mass/Vol] 9.3 mg/dL 8.5-10.1 [facility] Chloride [Moles/Vol] 104 mmol/L 98-107 [facility] CO2 [Moles/Vol] 22.6 mmol/L 21.0-32.0 [facility] Creatinine [Mass/Vol] 1.57 mg/dL 0.55-1.02 [facility] GFR/1.73 sq M.predicted MDRD (S/P/Bld) [Vol rate/Area] 42 mL/min/{1.73_m2} >=60 [facility] Glucose [Mass/Vol] 167 mg/dL 74-106 [facility] Magnesium [Mass/Vol] 1.9 mg/dL 1.8-2.4 [facility] Potassium [Moles/Vol] 4.7 mmol/L 3.5-5.1 [facility] Protein [Mass/Vol] 7.6 g/dL 6.4-8.2 [facility] Sodium [Moles/Vol] 141 mmol/L 136-145 [facility] Urate [Mass/Vol] 5.9 mg/dL 2.6-6.0 [facility] Urea nitrogen [Mass/Vol] 30.0 mg/dL 7.0-18.0 [facility] Urea nitrogen/Creatinine [Mass ratio] 19.1 mg/mg [facility] Bilirubin Ql (U) Negative NEGATIVE [facility] Glucose (U) [Mass/Vol] Negative NEGATIVE [facility] Ketones Ql (U) Negative NEGATIVE [facility] pH (U) 5.5 [pH] 5.0-9.0 [facility] Specific gravity (U) [Rel density] 1.025 1.005-1.025 [facility] Urobilinogen Qn (U) 0.2 {Nikolas'U}/dL 0.2-1.0 [facility] Laboratory - Specimen inform ationon 11-05-2023 Appearance (U) CLEAR CLEAR [facility] Color (U) LT. YELLOW YELLOW [facility] Laboratory - Urinalysison Leukocyte esterase Test strip Ql (U) Negative NEGATIVE [facility] Nitrite Ql (U) Negative NEGATIVE [facility] Protein (U) [Mass/Vol] 11.4 mg/dL <=11.9 [facility] Protein Ql (U) Negative NEG/TRACE [facility] Leukocytes [#/volume] correc sabrina for nucleated erythrocytes in Blood by Automated counon 11-05-2023 WBC corrected for nucl RBC Auto (Bld) [#/Vol] 7.5 10 3/uL 4.0-11.0 [facility] MCH Auto (RBC) [Entitic mass ]on 11-05-2023 MCH (RBC) [Entitic mass] 30.7 pg 26.7-34.0 [facility] MCHC Auto (RBC) [Mass/Vol]on 11-05-2023 MCHC (RBC) [Mass/Vol] 33.1 g/dL 29.9-35.2 [facility] MCV Auto (RBC) [Entitic vol] on 11-05-2023 MCV (RBC) [Entitic vol] 92.9 fL 81.0-99.0 [facility] No Panel Informationon 11-04 25-Hydroxy Vitamin D Total 36.3 ng/mL [facility] Comment on above: <20 ng/mL Vit D defi cient20-<30 ng/mL Vit D [id number] ng/mL Vit D sufficient>100 ng/mL Potential Toxicity Parathyroid Hormone (Intact) 53 pg/mL 15-65 [facility] Comment on above: Performed at: - [address] [id number] Director: Peng Wing PhD, Phone: [phone] Phosphorus Level 4.0 mg/dL 2.6-4.7 [facility] Urine Occult Blood Negative NEGATIVE [facility] Urine Random Creatinine 132.61 mg/dL 20.00-300.00 [facility] Platelet mean volume Auto (B ld) [Entitic vol]on 11-05-2023 Platelet mean volume (Bld) [Entitic vol] 9.3 fL 9.5-13.5 [facility] Platelets Auto (Bld) [#/Vol] on 11-05-2023 Platelets (Bld) [#/Vol] 273 10 3/uL 150-450 [facility] RBC Auto (Bld) [#/Vol]on RBC (Bld) [#/Vol] 3.94 10 6/uL 4.20-5.40 [facility] Serum or plasma albumin/glob ulin mass ratioon 11-05-2023 Albumin/Globulin [Mass ratio] 1.1 {ratio} [facility] Serum or plasma anion gap de terminationon 11-05-2023 Anion gap [Moles/Vol] 19.1 mmol/L [facility] Urine protein/creatinine rat ioon 11-05-2023 Protein/Creatinine (U) [Ratio] 0.09 [facility] GLYCOHEMOGLOBIN A1Con 2022 ADA RECOMMENDATION SEE BELOW Normal [facility] Comment on above: Result Comment: ADA RECOMMENDED LIMIT 4.0 - 6.0 ADA THERAPEUTIC TARGET < 7.0 ACTION SUGGESTED > 7.0 Performed By: #### A 1C #### [facility] [address] [place] [address] Dr. Mitesh Anthony Glucose [Mass/Vol] 137 mg/dL Normal [facility] Comment on above: Performed By: #### A 1C #### [facility] [address] [place] [address] Dr. Mitesh Anthony HbA1c (Bld) [Mass fraction] 6.4 % Critically high 4.5-6.2 [facility] Comment on above: Performed By: #### A 1C #### [facility] [address] [place] [address] Dr. Mitesh Anthony MICROALBUMIN, RAND URon 07-27 mALB 5.7 mg/L Normal <=30.0 [facility] Comment on above: Performed By: #### M ALBR #### [facility] [address] [place] [address] Dr. Mitesh Anthony PROF 14(COMP METB)on 023 Albumin [Mass/Vol] 4.1 g/dL Normal 3.4-5.0 [facility] Comment on above: Performed By: #### T [id number], CMP #### [facility] [address] [address] [address] Mitesh Anthony Albumin/Globulin [Mass ratio] 1.1 {ratio} Normal [facility] Comment on above: Performed By: #### T [id number], CMP #### [facility] [address] [place] [address] [address] Mitesh Anthony ALP [Catalytic activity/Vol] 89 U/L Normal 46-116 [facility] Comment on above: Performed By: #### T ISAIAS4, CMP #### [facility] [address] [address] [address] Mitesh nAthony ALT [Catalytic activity/Vol] 26 U/L Normal 14-59 [facility] Comment on above: Performed By: #### T ISAIAS4, CMP #### [facility] [address] [address] [address] Mitesh Anthony Anion gap [Moles/Vol] 11.3 mmol/L Normal [facility] Comment on above: Performed By: #### T ISAIAS4, CMP #### [facility] [address] [address] [address] Mitesh Anthony AST [Catalytic activity/Vol] 18 U/L Normal 15-37 [facility] Comment on above: Performed By: #### T ISAIAS4, CMP #### [facility] [address] [address] [address] Mitesh Anthony Bilirubin [Mass/Vol] 0.2 mg/dL Normal 0.2-1.0 [facility] Comment on above: Performed By: #### T ISAIAS4, CMP #### [facility] [address] [address] [address] Mitesh Anthony Calcium [Mass/Vol] 9.4 mg/dL Normal 8.5-10.1 [facility] Comment on above: Performed By: #### T ISAIAS4, CMP #### [facility] [address] [address] [address] Mitesh Anthony Chloride [Moles/Vol] 106 mmol/L Normal 98-107 [facility] Comment on above: Performed By: #### T ISAIAS4, CMP #### [facility] [address] [address] [address] Mitesh Anthony CO2 [Moles/Vol] 30.3 mmol/L Normal 21.0-32.0 [facility] Comment on above: Performed By: #### T SHRFT4, CMP #### [facility] [address] [address] [address] Mitesh Anthony Creatinine [Mass/Vol] 1.37 mg/dL Critically high 0.55-1.02 [facility] Comment on above: Performed By: #### T SHRFT4, CMP #### [facility] [address] [address] [address] Mitesh Anthony EGFR-AF GEORGIAN 50 mL/min/1.73m2 Critically low >=60 [facility] Comment on above: Performed By: #### T SHRFT4, CMP #### [facility] [address] [address] [address] Mitesh Anthony EGFR-NON AF GEORGIAN 41 mL/min/1.73m2 Critically low >=60 [facility] Comment on above: Performed By: #### T SHRFT4, CMP #### [facility] [address] [address] [address] Mitesh Anthony Globulin (S) [Mass/Vol] 3.6 g/dL Normal [facility] Comment on above: Performed By: #### T SHRFT4, CMP #### [facility] [address] [address] [address] Mitesh Anthony Glucose [Mass/Vol] 97 mg/dL Normal 74-106 [facility] Comment on above: Performed By: #### T SHRFT4, CMP #### [facility] [address] [address] [address] Mitesh Anthony Potassium [Moles/Vol] 3.6 mmol/L Normal 3.5-5.1 [facility] Comment on above: Performed By: #### T SHRFT4, CMP #### [facility] [address] [address] [address] Mitesh Anthony Protein [Mass/Vol] 7.7 g/dL Normal 6.4-8.2 [facility] Comment on above: Performed By: #### T SHRFT4, CMP #### [facility] [address] [place] [address] Dr. Mitesh Anthony Sodium [Moles/Vol] 144 mmol/L Normal 136-145 [facility] Comment on above: Performed By: #### T SHRFT4, CMP #### [facility] [address] [place] [address] Dr. Mitesh Anthony Urea nitrogen [Mass/Vol] 29.0 mg/dL Critically high 7.0-18.0 [facility] Comment on above: Performed By: #### T SHRFT4, CMP #### [facility] [address] [place] [address] Dr. Mitesh Anthony Urea nitrogen/Creatinine [Mass ratio] 21.2 mg/mg Normal [facility] Comment on above: Performed By: #### T LYNNFT4, CMP #### [facility] [address] [place] [address] Dr. Mitesh Anthony TSH W/ REFLEX TO FT4on 08-17 TSH 1.449 uIU/mL Normal 0.358-3.740 [facility] Comment on above: Performed By: #### L IPID, CMP #### [facility] [address] [place] [address] Dr. Mitesh Anthony OUTSIDE SURG PATH SLIDE REVI EWon 08-07-2022 CASE REPORT Normal [facility] Comment on above: Order Comment: Speci men Type: SLIDE Ordering Facility: [facility] Outside Review Address: , , Result Comment: Surg ical Pathology Report Case: [id number] Authorizing Provider: Kaden Golden MD Collected: 08/07/2022 09:12 AM Ordering Location: [facility] Main Received: 08/07/2022 09:15 AM Pathologist: Albaro Murguia MD Specimen: SLIDE(S), 18 SLIDES, [id number] Performed By: #### L [id number] #### [facility] CLIA [id number] [address] [place] [address] WILL CLINICAL HISTORY Prior core biopsy diagnosis of ADH. Normal [facility] Comment on above: Order Comment: Speci evelyn Type: SLIDE Ordering Facility: [facility] Review Address: , , Performed By: #### L [id number] #### 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 Performed By: #### L [id number] #### 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 ---Background breast with previous biopsy site. ---Please see comment. Performed By: #### L [id number] #### [facility] CLIA [id number] [address] [place] [address] FINAL PERFORMING LAB Normal [facility] Comment on above: Order Comment: Raimundo rivas Type: SLIDE Ordering Facility: [facility] Outside Review Address: , , Result Comment: Diag nostic interpretation performed at [facility], [address] [place] [address] CLIA# [id number] Splitter Head: Akshat Nguyen M.D. Performed By: #### L [id number] #### [facility] CLIA [id number] [address] [place] [address] WILL Consultation Noteon 08-04-19 Consultation Note [id number]#1.00C D:127 Normal [facility] CNOVSPon 08-02-2022 CNOVSP Visit (SP) Office ([place]) LINDSEY POLO ([id number]) 1970 F Date Time Provider Department 08/02/22 3:30 PM KADEN GOLDEN During your visit today, we recorded the following information about you: Temperature Pulse Respiration Blood pressure 97.5 degrees 74/minute 16/minute 136/85 Weight Height 32.2 kg 1.321 m Kaden Golden MD 08/02/2022 4:01 PM Signed PATIENT NAME: Lindsey Polo CLINIC NO.: [id number] ATTENDING PHYSICIAN: Kaden Golden MD DATE OF [...] year old (more content not included)... Normal [facility] LINDSEY POLO ([id number]) 1970 F Date Time Provider Department 08/02/22 KADEN GOLDEN [facility] During your visit today, we recorded the following information about you: Luis Enrique Szymanski 08/02/2022 3:50 PM Signed Request sent to [facility] General pathology to send to [...] Status:Closed by LUIS ENRIQUE SZYMANSKI on 08/02/22 [facility] Ambulatory Visit Summaryon 0 07-21-2022 Ambulatory [...] (0.025 mg) Tab) potassium chloride (Potassium Chloride (Qyp-Jayg-Tvb M20) 20 mEq oral tablet, extended release) Procedures Performed Lumpectomy of left breast (07/12/2022), Colonoscopy, Core needle biopsy of breast. What to do next Someone Will Contact You Regarding These Appointments [facility] External Ambulatory Referral, Geographic proximity, Oncology, [facility], or [facility] [place] [facility], [facility], 07/21/22 13:48:00 EST, Ductal carcinoma in situ [...] Every day Unchanged potassium chloride (Potassium Chloride (Lfr-Xlni-Jeg M20) 20 mEq oral tablet, extended release) [...] no longer receiving treatment for. Hypokalemia Normal [facility] General Surgery Office/Clini c Noteon 07-21-2022 [...] estrogen receptor modulator; call with problems/questions. Ordered: [facility] External Ambulatory Referral 2. Fibroadenoma of left [...] mcg= 1 tab(s), Oral, Daily Potassium Chloride (Nkp-Zuix-Vki M20) 20 mEq oral tablet, extended release, [...] BNT-162b2 vax 09/11/2020 Recorded 2022-06-20: TPV40 Normal [facility] Comment on above: Result Comment: Elec tronically Signed By: TEODORO MALIK, Christopher Ragland\Date and Time Signed: 07/21/22 15:46 EST RAD - Ultrasound Reporton RAD - Ultrasound Report [id number]#1.00C D:127 Normal [facility] US GUIDE LOCAL BREAST LTon 0 07-20-2022 US GUIDE LOCAL BREAST LT Begin Addendum #1 COLLECTED DATE/TIME: 07/12/2022 12:00 EST Final Diagnosis Report for [place] LEFT BREAST MASS 3 O'CLOCK POSITION; [...] 1. Technically successful hookwire localization. Normal [facility] Pathology Noteon 07-19-2022 Pathology Note [id number]#1.00C D:127 Normal [facility] Operative Reporton Operative Report [id number]#1.00C D:127 Normal [facility] RAD - Ultrasound Reporton RAD - Ultrasound Report [id number]#1.00C D:127 Normal [facility] US BREAST SPECIMENon 023 US BREAST [...] by: SHANI THOMAS Date: 2022-07-12 13:51 Normal [facility] ECG 12-Leadon 07-05-2022 ECG 12-Lead [id number]#1.00C D:127 Normal [facility] Lab Reportson 07-05-2022 Lab Reports [id number]#1.00C D:127 Normal [facility] PROF CHEM 8 (BAS METB)on Anion gap [Moles/Vol] 13.7 mmol/L Normal [facility] Comment on above: Performed By: #### B MP #### [facility] [address] [place] [address] Dr. Mitesh Anthony Calcium [Mass/Vol] 9.6 mg/dL Normal 8.5-10.1 [facility] Comment on above: Performed By: #### B MP #### [facility] [address] [address] [address] Mitesh Anthony Chloride [Moles/Vol] 108 mmol/L Critically high 98-107 [facility] Comment on above: Performed By: #### B MP #### [facility] [address] [place] [address] Dr. Mitesh Anthony CO2 [Moles/Vol] 27.5 mmol/L Normal 21.0-32.0 [facility] Comment on above: Performed By: #### B MP #### [facility] [address] [address] [address] Mitesh Anthony Creatinine [Mass/Vol] 1.36 mg/dL Critically high 0.55-1.02 [facility] Comment on above: Performed By: #### B MP #### [facility] [address] [address] [address] Mitesh Anthony EGFR-AF GEORGIAN 50 mL/min/1.73m2 Critically low >=60 [facility] Comment on above: Performed By: #### B MP #### [facility] [address] [address] [address] Mitesh Anthony EGFR-NON AF GEORGIAN 41 mL/min/1.73m2 Critically low >=60 [facility] Comment on above: Performed By: #### B MP #### [facility] [address] [address] [address] Mitesh Anthony Glucose [Mass/Vol] 132 mg/dL Critically high 74-106 T [facility] Comment on above: Performed By: #### B MP #### [facility] [address] [address] [address] Mitesh Anthony Potassium [Moles/Vol] 4.2 mmol/L Normal 3.5-5.1 [facility] Comment on above: Performed By: #### B MP #### [facility] [address] [address] [address] Mitesh Anthony Sodium [Moles/Vol] 145 mmol/L Normal 136-145 [facility] Comment on above: Performed By: #### B MP #### [facility] [address] [address] [address] Mitesh Anthony Urea nitrogen [Mass/Vol] 32.0 mg/dL Critically high 7.0-18.0 [facility] Comment on above: Performed By: #### B MP #### [facility] [address] [address] [address] Mitesh Anthony Urea nitrogen/Creatinine [Mass ratio] 23.5 mg/mg Normal [facility] Comment on above: Performed By: #### B MP #### [facility] [address] [place], [place] [address] Dr. Mitesh Anthony Consent for Procedure/Surger yon 06-23-2022 Consent for Procedure/Surgery [id number]#1.00C D:127 Normal [facility] Outside Mammographyon 2022 Outside Mammography [id number]#1.00C D:127 Normal [facility] Outside Mammography [id number]#1.00C D:127 Normal [facility] Pathology Noteon 06-19-2022 Pathology Note [id number]#1.00C D:127 Normal [facility] RAD - Ultrasound Reporton RAD - Ultrasound Report [id number]#1.00C D:127 Normal [facility] US VAC ASST BX BREAST LT W C LIPon 06-16-2022 US VAC ASST BX BREAST LT W CLIP Begin Addendum #1 COLLECTED DATE/TIME: 06/05/2022 14:29 EST Final Diagnosis Report for [place] LEFT BREAST 2 O'CLOCK MASS, ULTRASOUND-GUIDED [...] after pathology results are available. Normal [facility] MAMMO POST BIOPSY LEFTon MAMMO POST BIOPSY LEFT Patient: LINDSEY POLO Exam Date: 06/05/2022 : 1970 Gender:F Ordering : DR JANIE TOSCANO . Admission #: [id number] Family : Order #: [id number] CLICK HERE TO VIEW EXAM RADIOLOGY REPORT [...] Thomas M.D. on 06/05/2022 at 15:59 Normal [facility] MG MAMM LT DIAG FUon 022 MG MAMM LT DIAG FU Patient: LINDSEY POLO Exam Date: 05/18/2022 : 1970 Gender:F Ordering : DR JANIE TOSCANO . Admission #: [id number] Family : Order #: [id number] CLICK HERE TO VIEW EXAM RADIOLOGY REPORT [...] Treatments None Family Cancers None LOCATION: [facility] BREAST COMPOSITION: Heterogeneously dense,which may [...] M.D. on 05/18/2022 at 14:31 Normal [facility] US BREAST LEFT LIMITEDon US BREAST LEFT LIMITED Patient: LINDSEY POLO Exam Date: 05/18/2022 : 1970 Gender:F Ordering : DR JANIE TOSCANO . Admission #: [id number] Family : Order #: [id number] CLICK HERE TO VIEW EXAM RADIOLOGY REPORT [...] Treatments None Family Cancers None LOCATION: [facility] BREAST COMPOSITION: Heterogeneously dense,which may [...] Thomas M.D. on 05/18/2022 at 14:31 Normal [facility] GLYCOHEMOGLOBIN A1Con 2021 ADA RECOMMENDATION SEE BELOW Normal [facility] Comment on above: Result Comment: ADA RECOMMENDED LIMIT 4.0 - 6.0 ADA THERAPEUTIC TARGET < 7.0 ACTION SUGGESTED > 7.0 Performed By: #### A 1C #### [facility] [address] [place] [address] Dr. Mitesh Anthony Glucose [Mass/Vol] 143 mg/dL Normal [facility] Comment on above: Performed By: #### A 1C #### [facility] [address] [place] [address] Dr. Mitesh Anthony HbA1c (Bld) [Mass fraction] 6.6 % Critically high 4.5-6.2 [facility] Comment on above: Performed By: #### A 1C #### [facility] [address] [place] [address] Dr. Mitesh Anthony LIPID PROFILEon 05-16-2022 CHOL-HDL RATIO NORM SEE BELOW Normal [facility] Comment on above: Result Comment: 3.3 - 4.4 LOW RISK 4.4 - 7.1 AVERAGE RISK 7.1 - 11.0 MODERATE RISK >11.0 HIGH RISK Performed By: #### L IPID, CMP #### [facility] [address] [place] [address] Dr. Mitesh Anthony Cholesterol [Mass/Vol] 234 mg/dL Critically high <=200 [facility] Comment on above: Performed By: #### L IPID, CMP #### [facility] [address] [place] [address] Dr. Mitesh Anthony Cholesterol in HDL [Mass/Vol] 108 mg/dL Critically high 40-60 [facility] Comment on above: Performed By: #### L IPID, CMP #### [facility] [address] [place] [address] Dr. Mitesh Anthony Cholesterol in LDL [Mass/Vol] 111.2 mg/dL Normal [facility] Comment on above: Performed By: #### L IPID, CMP #### [facility] [address] [address] [address] Mitesh Anthony Cholesterol.total/Cho lesterol in HDL [Mass ratio] 2.2 {ratio} Normal [facility] Comment on above: Performed By: #### L IPID, CMP #### [facility] [address] [address] [address] Mitesh Anthony HDL NORMAL > or = 60 mg/dl - LO W CARDIOVASCULAR RISK <40 mg/dl - HIGH CARDIOVASCULAR RISK Normal [facility] Comment on above: Performed By: #### L IPID, CMP #### [facility] [address] [place] [address] Dr. Mitesh Anthony LDL CALC NORMAL SEE BELOW Normal [facility] Comment on above: Result Comment: <100 mg/dl OPTIMAL 100 - 129 mg/dl NEAR OR ABOVE OPTIMAL 130 - 159 mg/dl BORDERLINE HIGH 160 - 189 mg/dl HIGH >190 mg/dl VERY HIGH Performed By: #### L IPID, CMP #### [facility] [address] [address] [address] Mitesh Anthony Triglyceride [Mass/Vol] 74 mg/dL Normal <=150 [facility] Comment on above: Performed By: #### L IPID, CMP #### [facility] [address] [address] [address] Mitesh Anthony VLDL CALC 14.8 mg/dL Normal [facility] Comment on above: Performed By: #### L IPID, CMP #### [facility] [address] [address] [address] Mitesh Anthony PROF 14(COMP METB)on 022 Albumin [Mass/Vol] 4.2 g/dL Normal 3.4-5.0 [facility] Comment on above: Performed By: #### L IPID, CMP #### [facility] [address] [address] [address] Mitesh Anthony Albumin/Globulin [Mass ratio] 1.2 {ratio} Normal [facility] Comment on above: Performed By: #### L IPID, CMP #### [facility] [address] [address] [address] Mitesh Anthony ALP [Catalytic activity/Vol] 114 U/L Normal 46-116 [facility] Comment on above: Performed By: #### L IPID, CMP #### [facility] [address] [address] [address] Mitesh Anthony ALT [Catalytic activity/Vol] 39 U/L Normal 14-59 [facility] Comment on above: Performed By: #### L IPID, CMP #### [facility] [address] [place] [address] Dr. Mitesh Anthony Anion gap [Moles/Vol] 12.2 mmol/L Normal [facility] Comment on above: Performed By: #### L IPID, CMP #### [facility] [address] [place] [address] Dr. Mitesh Anthony AST [Catalytic activity/Vol] 26 U/L Normal 15-37 [facility] Comment on above: Performed By: #### L IPID, CMP #### [facility] [address] [place] [address] Dr. Mitesh Anthony Bilirubin [Mass/Vol] 0.4 mg/dL Normal 0.2-1.0 [facility] Comment on above: Performed By: #### L IPID, CMP #### [facility] [address] [place] [address] Dr. Mitesh Anthony Calcium [Mass/Vol] 9.4 mg/dL Normal 8.5-10.1 [facility] Comment on above: Performed By: #### L IPID, CMP #### [facility] [address] [place] [address] Dr. Mitesh Anthony Chloride [Moles/Vol] 102 mmol/L Normal 98-107 [facility] Comment on above: Performed By: #### L IPID, CMP #### [facility] [address] [place] [address] Dr. Mitesh Anthony CO2 [Moles/Vol] 29.5 mmol/L Normal 21.0-32.0 [facility] Comment on above: Performed By: #### L IPID, CMP #### [facility] [address] [place] [address] Dr. Mitesh Anthony Creatinine [Mass/Vol] 1.29 mg/dL Critically high 0.55-1.02 [facility] Comment on above: Performed By: #### L IPID, CMP #### [facility] [address] [place] [address] Dr. Mitesh Anthony EGFR-AF GEORGIAN 53 mL/min/1.73m2 Critically low >=60 [facility] Comment on above: Performed By: #### L IPID, CMP #### [facility] [address] [place] [address] Dr. Mitesh Anthony EGFR-NON AF GEORGIAN 44 mL/min/1.73m2 Critically low >=60 [facility] Comment on above: Performed By: #### L IPID, CMP #### [facility] [address] [place] [address] Dr. Mitesh Anthony Globulin (S) [Mass/Vol] 3.5 g/dL Normal [facility] Comment on above: Performed By: #### L IPID, CMP #### [facility] [address] [place] [address] Dr. Mitesh Anthony Glucose [Mass/Vol] 113 mg/dL Critically high 74-106 [facility] [place] Comment on above: Performed By: #### L IPID, CMP #### [facility] [address] [place] [address] Dr. Mitesh Anthony Potassium [Moles/Vol] 3.7 mmol/L Normal 3.5-5.1 [facility] Comment on above: Performed By: #### L IPID, CMP #### [facility] [address] [place] [address] Dr. Mitesh Anthony Protein [Mass/Vol] 7.7 g/dL Normal 6.4-8.2 [facility] Comment on above: Performed By: #### L IPID, CMP #### [facility] [address] [address] [address] Mitesh Anthony Sodium [Moles/Vol] 140 mmol/L Normal 136-145 [facility] Comment on above: Performed By: #### L IPID, CMP #### [facility] [address] [address] [address] Mitesh Anthony Urea nitrogen [Mass/Vol] 23.0 mg/dL Critically high 7.0-18.0 [facility] Comment on above: Performed By: #### L IPID, CMP #### [facility] [address] [address] [address] Mitesh Anthony Urea nitrogen/Creatinine [Mass ratio] 17.8 mg/mg Normal [facility] Comment on above: Performed By: #### L IPID, CMP #### [facility] [address] [address] [address] Mitesh Anthony MG MAMM SCREEN 3D JULIANNA CADon 04-24-2022 MG MAMM SCREEN 3D JULIANNA CAD Patient: LINDSEY POLO Exam Date: 04/24/2022 : 1970 Gender:F Ordering : DR JANIE TOSCANO . Admission #: [id number] Family : Order #: [id number] CLICK HERE TO VIEW EXAM RADIOLOGY REPORT PROCEDURE: MAMMOGRAM SCREENING 3D BILATERAL CAD COMPARISON: None. INDICATIONS: Screening mammography Calculator Name NCI Breast Cancer Risk Assessment Tool 5 Year Breast Cancer Risk Not Reported. Lifetime Breast Cancer Risk Not Reported. Personal Breast Cancer No Personal Ovarian Cancer No Treatments None Family Cancers None LOCATION: [facility] BREAST COMPOSITION: Heterogeneously dense,which may [...] Thomas M.D. on 04/25/2022 at 13:20 Normal [facility] US SINGLE QUAD RT UPPERon US [...] by: SHANI THOMAS Date: 2022-04-24 19:32 Normal [facility] XR DEXA BONE DENSITYon 04-24 XR [...] by: SHANI THOMAS Date: 2022-04-24 16:36 Normal [facility] Outside Colonoscopyon 2021 Outside Colonoscopy [id number] D:127 Normal [facility] Reminderson 04-13-2022 Reminders - From: Natacha Perea LPN To: GSN - Clinical; Sent: 04/13/2022 15:39:57 EST Show up: 03/12/2032 07:00:00 EDT Subject: colonoscopy recall Due Date/Time: 04/12/2032 07:00:00 EST Reminder/Recall Patient is due for screening colonoscopy 04/12/2032. Normal [facility] Lab Reportson 04-10-2022 Lab Reports [id number] D:127 Normal [facility] Covid-19 PCR ([facility])on 03-28 SARS-CoV-2 (COVID-19) RNA RITCHIE+probe Ql (Unsp spec) Not detected Normal NOT DETECTED [facility] Comment on above: Result Comment: This test is not yet approved or cleared by the [place] FDA. When there are no FDA-approved or cleared tests available, and other criteria are met, FDA can make tests available under an emergency access mechanism called an Emergency Use Authorization (EUA). The EUA for this test is supported by the [place] of Health and Human Service's (HHS's) declaration [...] Performed By: #### L IPID, CMP #### [facility] [address] [place] [address] Dr. Mitesh Anthony Pre-Certification Formon Pre-Certification Form [id number] CD:127 Normal [facility] Consent for Procedure/Surger yon 03-09-2022 Consent for Procedure/Surgery [id number] D:127 Normal [facility] Ambulatory Visit Summaryon 1 Ambulatory Visit Summary [...] (0.025 mg) Tab) potassium chloride (Potassium Chloride (Hng-Wttb-Gky M20) 20 mEq oral tablet, extended release) [...] or concerns Unchanged potassium chloride (Potassium Chloride (Rkw-Kgvs-Sta M20) 20 mEq oral tablet, extended release) [...] no longer receiving treatment for. Hypokalemia Normal [facility] PAP ACOG PANEL 2: 30 to 65on 03-08-2022 . . Normal [facility] Comment on above: Result Comment: Perf ormed at: WB Performed By: #### [id number] #### [facility] [address] [place] [address] Dr. Mitesh Anthony Age Gdln ACOG Testing 30-65 [facility] Comment on above: Performed By: #### [id number] #### [facility] [address] [place] [address] Dr. Mitesh Anthony DIAGNOSIS: Comment [facility] Comment on above: Result Comment: NEGA TIVE FOR INTRAEPITHELIAL LESION OR MALIGNANCY. Performed at: WB Performed By: #### [id number] #### [facility] [address] [place] [address] Dr. Mitesh Anthony HPV Aptima Negative Normal [facility] Comment on above: Result Comment: This nucleic acid amplification test detects fourteen high-risk HPV types (16,18,31,33,35,39,45,51,52,56,58,59,66,68) without differentiation. Performed at: =G Performed By: #### [id number] #### [facility] [address] [place] [address] Dr. Mitesh Anthony Methodology: Comment [facility] Comment on above: Result Comment: This liquid based ThinPrep(R) pap test was screened with the use of an image guided system. Performed at: WB Performed By: #### [id number] #### [facility] [address] [place] [address] Dr. Mitesh Anthony Note: Comment [facility] Comment on above: Result Comment: The Pap smear is a screening test designed to aid in the detection of premalignant and malignant conditions of the uterine cervix. It is not a diagnostic procedure and should not be used as the sole means of detecting cervical cancer. Both false-positive and false-negative reports do occur. . Performed at: WB Performed By: #### [id number] #### [facility] [address] [place] [address] Dr. Mitesh Anthony Performed by: Comment Normal [facility] Comment on above: Result Comment: Scot t W Dreger, Statement Distribution Clerk (ASCP) Performed at: WB Performed By: #### [id number] #### [facility] [address] [place] [address] Dr. Mitesh Anthony Specimen adequacy: Comment Normal [facility] Comment on above: Result Comment: Sati sfactory for evaluation. Endocervical and/or squamous metaplastic cells (endocervical component) are present. Performed at: WB Performed By: #### [id number] #### [facility] [address] [place] [address] Dr. Mitesh Anthony THYROID PEROXIDASE ABon 01-27 Thyroid Peroxidase (TPO) Ab 8 IU/mL Normal 0-34 [facility] Comment on above: Performed By: #### T POAB #### [facility] [address] [place] [address] Dr. Mitesh Anthony HEPATITIS C ANTIBODYon 02-17 Hep C Virus Ab <0.1 Normal 0.0-0.9 [facility] Comment on above: Result Comment: Nega tive: [...] Hepatitis C Virus (HCV) RNA, Diagnosis, RITCHIE ([id number]) and Hepatitis C Virus (HCV) Antibody with reflex to Quantitative Real-time PCR ([id number]). Performed By: #### L IPID, CMP #### [facility] [address] [place] [address] Dr. Mitesh Anthony Physician Referralon 022 Physician Referral [id number] D:127 Normal [facility] CBC AUTO DIFFon 02-16-2022 BASO # 0.0 103/ul Normal 0.0-0.1 [facility] Comment on above: Performed By: #### L IPID, CMP #### [facility] [address] [place] [address] Dr. Mitesh Anthony Basophils/100 WBC (Bld) 0.5 % Normal 0.2-2.0 [facility] Comment on above: Performed By: #### L IPID, CMP #### [facility] [address] [place] [address] Dr. Mitesh Anthony EO # 0.1 103/ul Normal 0.0-0.7 [facility] Comment on above: Performed By: #### L IPID, CMP #### [facility] [address] [place] [address] Dr. Mitesh Anthony Eosinophils/100 WBC (Bld) 2.1 % Normal 0.9-7.0 [facility] Comment on above: Performed By: #### L IPID, CMP #### [facility] [address] [place] [address] Dr. Mitesh Anthony Erythrocyte distribution width (RBC) [Ratio] 14.4 % Normal 11.0-15.0 [facility] Comment on above: Performed By: #### L IPID, CMP #### [facility] [address] [place] [address] Dr. Mitesh Anthony Hematocrit (Bld) [Volume fraction] 36.1 % Normal 36.0-48.0 [facility] Comment on above: Performed By: #### L IPID, CMP #### [facility] [address] [place] [address] Dr. Mitesh Anthony Hemoglobin (Bld) [Mass/Vol] 11.7 g/dL Critically low 12.0-16.0 [facility] Comment on above: Performed By: #### L IPID, CMP #### [facility] [address] [place] [address] Dr. Mitesh Anthony IG # 0.01 10e3/ul Normal 0.00-0.03 [facility] Comment on above: Performed By: #### L IPID, CMP #### [facility] [address] [place] [address] Dr. Mitesh Anthony IG % 0.2 % Normal 0.0-0.5 [facility] Comment on above: Performed By: #### L IPID, CMP #### [facility] [address] [address] [address] Mitesh Anthony LYMPH # 1.7 103/ul Normal 1.2-3.8 [facility] Comment on above: Performed By: #### L IPID, CMP #### [facility] [address] [address] [address] Mitesh Anthony Lymphocytes/100 WBC (Bld) 29.1 % Normal 20.5-60.0 [facility] Comment on above: Performed By: #### L IPID, CMP #### [facility] [address] [place] [address] Dr. Mitesh Anthony MANUAL DIFF REQ NO Normal [facility] Comment on above: Performed By: #### L IPID, CMP #### [facility] [address] [place] [address] Dr. Mitesh Anthony MCH (RBC) [Entitic mass] 30.5 pg Normal 26.7-34.0 [facility] Comment on above: Performed By: #### L IPID, CMP #### [facility] [address] [place] [address] Dr. Mitesh Anthony MCHC (RBC) [Mass/Vol] 32.4 g/dL Normal 29.9-35.2 [facility] Comment on above: Performed By: #### L IPID, CMP #### [facility] [address] [place] [address] Dr. Mitesh Anthony MCV (RBC) [Entitic vol] 94.0 fL Normal 81.0-99.0 [facility] Comment on above: Performed By: #### L IPID, CMP #### [facility] [address] [place] [address] Dr. iMtesh Anthony MONO # 0.5 103/ul Normal 0.3-0.8 [facility] Comment on above: Performed By: #### L IPID, CMP #### [facility] [address] [place] [address] Dr. Mitesh Anthony Monocytes/100 WBC (Bld) 8.0 % Normal 1.7-12.0 [facility] Comment on above: Performed By: #### L IPID, CMP #### [facility] [address] [address] [address] Mitesh Anthony NEUT # 3.5 103/ul Normal 1.4-6.5 [facility] Comment on above: Performed By: #### L IPID, CMP #### [facility] [address] [address] [address] Mitesh Anthony Neutrophils/100 WBC (Bld) 60.1 % Normal 43.0-75.0 [facility] Comment on above: Performed By: #### L IPID, CMP #### [facility] [address] [place] [address] Dr. Mitesh Anthony Platelet mean volume (Bld) [Entitic vol] 9.5 fL Normal 9.5-13.5 [facility] Comment on above: Performed By: #### L IPID, CMP #### [facility] [address] [place] [address] Dr. Mitesh Anthony PLT 260 103/ul Normal 150-450 [facility] Comment on above: Performed By: #### L IPID, CMP #### [facility] [address] [place] [address] Dr. Mitesh Anthony RBC 3.84 106/ul Critically low 4.20-5.40 [facility] Comment on above: Performed By: #### L IPID, CMP #### [facility] [address] [place] [address] Dr. Mitesh Anthony WBC 5.8 103/ul Normal 4.0-11.0 [facility] Comment on above: Performed By: #### L IPID, CMP #### [facility] [address] [place] [address] Dr. Mitesh Anthony FREE T4on 02-16-2022 Free T4 [Mass/Vol] 1.08 ng/dL Normal 0.76-1.46 [facility] Comment on above: Performed By: #### L IPID, CMP #### [facility] [address] [place] [address] Dr. Mitesh Anthony GLYCOHEMOGLOBIN A1Con 2021 ADA RECOMMENDATION SEE BELOW Normal [facility] Comment on above: Result Comment: ADA RECOMMENDED LIMIT 4.0 - 6.0 ADA THERAPEUTIC TARGET < 7.0 ACTION SUGGESTED > 7.0 Performed By: #### A 1C #### [facility] [address] [address] [address] Mitesh Anthony Glucose [Mass/Vol] 126 mg/dL Normal [facility] Comment on above: Performed By: #### A 1C #### [facility] [address] [address] [address] Mitesh Anthony HbA1c (Bld) [Mass fraction] 6.0 % Normal 4.5-6.2 [facility] Comment on above: Performed By: #### A 1C #### [facility] [address] [place] [address] Dr. Mitesh Anthony LIPID PROFILEon 02-16-2022 CHOL-HDL RATIO NORM SEE BELOW Normal [facility] Comment on above: Result Comment: 3.3 - 4.4 LOW RISK 4.4 - 7.1 AVERAGE RISK 7.1 - 11.0 MODERATE RISK >11.0 HIGH RISK Performed By: #### L IPID, CMP #### [facility] [address] [place] [address] Dr. Mitesh Anthony Cholesterol [Mass/Vol] 233 mg/dL Critically high <=200 [facility] Comment on above: Performed By: #### L IPID, CMP #### [facility] [address] [place] [address] Dr. Mitesh Anthony Cholesterol in HDL [Mass/Vol] 97 mg/dL Critically high 40-60 [facility] Comment on above: Performed By: #### L IPID, CMP #### [facility] [address] [address] [address] Mitesh Anthony Cholesterol in LDL [Mass/Vol] 113.0 mg/dL Normal [facility] Comment on above: Performed By: #### L IPID, CMP #### [facility] [address] [address] [address] Mitesh Anthony Cholesterol.total/Cho lesterol in HDL [Mass ratio] 2.4 {ratio} Normal [facility] Comment on above: Performed By: #### L IPID, CMP #### [facility] [address] [address] [address] Mitesh Anthony HDL NORMAL > or = 60 mg/dl - LO W CARDIOVASCULAR RISK <40 mg/dl - HIGH CARDIOVASCULAR RISK Normal [facility] Comment on above: Performed By: #### L IPID, CMP #### [facility] [address] [address] [address] Mitesh Anthony LDL CALC NORMAL SEE BELOW Normal [facility] Comment on above: Result Comment: <100 mg/dl OPTIMAL 100 - 129 mg/dl NEAR OR ABOVE OPTIMAL 130 - 159 mg/dl BORDERLINE HIGH 160 - 189 mg/dl HIGH >190 mg/dl VERY HIGH Performed By: #### L IPID, CMP #### [facility] [address] [place] [address] Dr. Mitesh Anthony Triglyceride [Mass/Vol] 115 mg/dL Normal <=150 [facility] Comment on above: Performed By: #### L IPID, CMP #### [facility] [address] [address] [address] Mitesh Anthony VLDL CALC 23.0 mg/dL Normal [facility] Comment on above: Performed By: #### L IPID, CMP #### [facility] [address] [place] [address] Dr. Mitesh Anthony PROF 14(COMP METB)on 022 Albumin [Mass/Vol] 4.3 g/dL Normal 3.4-5.0 [facility] Comment on above: Performed By: #### L IPID, CMP #### [facility] [address] [address] [address] Mitesh Anthony Albumin/Globulin [Mass ratio] 1.3 {ratio} Normal [facility] Comment on above: Performed By: #### L IPID, CMP #### [facility] [address] [address] [address] Mitesh Anthony ALP [Catalytic activity/Vol] 100 U/L Normal 46-116 [facility] Comment on above: Performed By: #### L IPID, CMP #### [facility] [address] [address] [address] Mitesh Anthony ALT [Catalytic activity/Vol] 110 U/L Critically high 14-59 [facility] Comment on above: Performed By: #### L IPID, CMP #### [facility] [address] [address] [address] Mitesh Anthony Anion gap [Moles/Vol] 12.4 mmol/L Normal [facility] Comment on above: Performed By: #### L IPID, CMP #### [facility] [address] [address] [address] Mitesh Anthony AST [Catalytic activity/Vol] 48 U/L Critically high 15-37 [facility] Comment on above: Performed By: #### L IPID, CMP #### [facility] [address] [address] [address] Mitesh Anthony Bilirubin [Mass/Vol] 0.4 mg/dL Normal 0.2-1.0 [facility] Comment on above: Performed By: #### L IPID, CMP #### [facility] [address] [address] [address] Mitesh Anthony Calcium [Mass/Vol] 9.3 mg/dL Normal 8.5-10.1 [facility] Comment on above: Performed By: #### L IPID, CMP #### [facility] [address] [address] [address] Mitesh Anthony Chloride [Moles/Vol] 106 mmol/L Normal 98-107 [facility] Comment on above: Performed By: #### L IPID, CMP #### [facility] [address] [address] [address] Mitesh Anthony CO2 [Moles/Vol] 27.6 mmol/L Normal 21.0-32.0 [facility] Comment on above: Performed By: #### L IPID, CMP #### [facility] [address] [address] [address] Mitesh Anthony Creatinine [Mass/Vol] 1.23 mg/dL Critically high 0.55-1.02 [facility] Comment on above: Performed By: #### L IPID, CMP #### [facility] [address] [address] [address] Mitesh Anthony EGFR-AF GEORGIAN 56 mL/min/1.73m2 Critically low >=60 [facility] Comment on above: Performed By: #### L IPID, CMP #### [facility] [address] [address] [address] Mitesh Anthony EGFR-NON AF GEORGIAN 46 mL/min/1.73m2 Critically low >=60 [facility] Comment on above: Performed By: #### L IPID, CMP #### [facility] [address] [place] [address] Dr. Mitesh Anthony Globulin (S) [Mass/Vol] 3.3 g/dL Normal [facility] Comment on above: Performed By: #### L IPID, CMP #### [facility] [address] [place] [address] Dr. Mitesh Anthony Glucose [Mass/Vol] 97 mg/dL Normal 74-106 [facility] Comment on above: Performed By: #### L IPID, CMP #### [facility] [address] [place] [address] Dr. Mitesh Anthony Potassium [Moles/Vol] 4.0 mmol/L Normal 3.5-5.1 [facility] Comment on above: Performed By: #### L IPID, CMP #### [facility] [address] [place] [address] Dr. Mitesh Anthony Protein [Mass/Vol] 7.6 g/dL Normal 6.4-8.2 [facility] Comment on above: Performed By: #### L IPID, CMP #### [facility] [address] [place] [address] Dr. Mitesh Anthony Sodium [Moles/Vol] 142 mmol/L Normal 136-145 [facility] Comment on above: Performed By: #### L IPID, CMP #### [facility] [address] [place] [address] Dr. Mitesh Anthony Urea nitrogen [Mass/Vol] 22.0 mg/dL Critically high 7.0-18.0 [facility] Comment on above: Performed By: #### L IPID, CMP #### [facility] [address] [address] [address] Mitesh Anthony Urea nitrogen/Creatinine [Mass ratio] 17.9 mg/mg Normal [facility] Comment on above: Performed By: #### L IPID, CMP #### [facility] [address] [address] [address] Mitesh Anthony TSHon 02-16-2022 TSH 2.355 uIU/mL Normal 0.358-3.740 [facility] Comment on above: Performed By: #### L IPID, CMP #### [facility] [address] [address] [address] Mitesh Anthony Comprehensive metabolic 2000 panelon 09-22-2021 Albumin [Mass/Vol] 4.5 g/dL 3.2 - 5.2 g/dL [facility] ALP [Catalytic activity/Vol] 75 U/L 40 - 150 U/L [facility] ALT [Catalytic activity/Vol] 14 U/L 0 - 40 U/L [facility] Anion gap [Moles/Vol] 16 mmol/L 10 - 2 0 mmol/L [facility] AST [Catalytic activity/Vol] 17 U/L 0 - 45 U/L [facility] Bilirubin [Mass/Vol] 0.3 mg/dL 0.0 - 1 .3 mg/dL [facility] Calcium [Mass/Vol] 9.0 mg/dL 8.4 - 10. 2 mg/dL [facility] Chloride [Moles/Vol] 105 mmol/L 98 - 10 8 mmol/L [facility] Creatinine [Mass/Vol] 1.16 mg/dL High 0.40 - 1.10 [facility] GFR/1.73 sq M.predicted CKD-EPI (S/P/Bld) [Vol rate/Area] 64 >=60 mL/min/1.73 m2 [facility] Glucose [Mass/Vol] 129 mg/dL High 65 - 99 mg/dL [facility] HCO3 [Moles/Vol] 26 mmol/L 21 - 32 mmol/L [facility] Interpretation and review of laboratory results Abnormal [facility] Potassium [Moles/Vol] 3.7 mmol/L 3.5 - 5.1 mmol/L [facility] Protein [Mass/Vol] 6.5 g/dL 6.0 - 8.0 g/dL [facility] Sodium [Moles/Vol] 143 mmol/L 135 - 145 mmol/L [facility] Urea nitrogen [Mass/Vol] 20 mg/dL 8 - 25 mg/dL [facility] Urea nitrogen/Creatinine [Mass ratio] 17.2 mg/mg [facility] The eGFR should be u sed for monitoring renal function only and not for medication dosing. [facility] HIV 1/2 Screen (4th Generati on)on 09-22-2021 HIV 1+2 Ab+HIV1 p24 Ag IA Ql Negative Negative [facility] This assay screens f or the presence of HIV-1, HIV-2 antibodies and for the presence of HIV-1 antigen. Test performed using [employer] immunoassay system [facility] HbA1c (Bld) [Mass fraction]o n 09-22-2021 Average glucose Estimated from glycated hemoglobin (Bld) [Mass/Vol] 137 mg/dL High 74 - 114 mg/dL [facility] Interpretation and review of laboratory results Abnormal [facility] Normal: 4.2% - 5.6% Increased risk for diabetes: 5.7% - 6.4% Diabetes: >= 6.5% Pediatrics: No established reference range Estimated average glucose: 74-114 mg/dL [facility] Hemoglobin A1con 09-22-2021 HbA1c (Bld) [Mass fraction] 6.4 % High 4.2 - 5.6 % [facility] Hepatitis C Antibodyon 09-22 HCV Ab Ql (S) Negative Negative [facility] Test performed using [employer] immunoassay system [facility] Lipid 1996 panelon 2 Cholesterol [Mass/Vol] 195 mg/dL 100 - 199 mg/dL [facility] Cholesterol in HDL [Mass/Vol] 69 mg/dL 40 - 59 [facility] Cholesterol in LDL [Mass/Vol] 114 mg/dL 10 - 130 mg/dL [facility] Comment on above: National Cholesterol Education Program Guidelines: LDL Cholesterol Optimal: <100 mg/dL Near Optimal/above Optimal: 100-129 mg/dL Borderline High: 130-159 mg/dL High: 160-189 mg/dL Very High: greater than or equal to 190 mg/dL Cholesterol non HDL [Mass/Vol] 126 mg/dL [facility] Comment on above: National Cholesterol Education Program Guidelines: NON HDL Cholesterol Desirable: <130 mg/dL Borderline High: 130-159 mg/dL High: 160-189 mg/dL Very High: > or = 190 mg/dL Cholesterol.total/Cho lesterol in HDL [Mass ratio] 2.8 {ratio} ratio [facility] Comment on above: Female Cholesterol/H DL Ratio: Average risk: 4.4 1/2 average risk: 3.3 2 x average risk: 7.1 Triglyceride [Mass/Vol] 62 mg/dL 30 - 150 mg/dL [place] [facility] No Panel Informationon 09-22 Interpretation and review of laboratory results Normal [facility] TSH DL <= 0.005 mIU/L Qnon 0 09-22-2021 Interpretation and review of laboratory results Normal [facility] TSH Qn 2.57 m[IU]/L [facility] Vital Signs Date Time Vital Sign Value Performing Clinician Facility 02-26-2024 16:11-0400 Body mass index (BMI) [Ratio] 18 kg/m2 [facility] 02-26-2024 16:11-0400 Diastolic blood pressure 81 mm[Hg] [facility] 02-26-2024 16:11-0400 Systolic blood pressure 135 mm[Hg] [facility] 02-26-2024 16:03-0400 Body height 144.78 cm [facility] 02-26-2024 16:03-0400 Body temperature 98.8 [degF] [facility] 02-26-2024 16:03-0400 Body weight 37.76 kg [facility] 02-26-2024 16:03-0400 Heart rate 115 /min [facility] 02-26-2024 16:03-0400 Respiratory rate 16 /min [facility] 02-26-2024 16:03-0400 SaO2% (BldA) [Mass fraction] 95 % [facility] 11-14-2023 10:24-0400 Body height 144.78 cm [facility] 11-14-2023 10:24-0400 Body mass index (BMI) [Ratio] 16.9 kg/m2 [facility] 11-14-2023 10:24-0400 Body temperature 97.5 [degF] [facility] 11-14-2023 10:24-0400 Body weight 35.49 kg [facility] 11-14-2023 10:24-0400 Diastolic blood pressure 79 mm[Hg] [facility] 11-14-2023 10:24-0400 Heart rate 110 /min [facility] 11-14-2023 10:24-0400 Respiratory rate 16 /min [facility] 11-14-2023 10:24-0400 SaO2% (BldA) [Mass fraction] 99 % [facility] 11-14-2023 10:24-0400 Systolic blood pressure 132 mm[Hg] [facility] 02-13-2023 15:20-0400 Body height 144.78 cm Corazon Mazas Other [employer] [facility] [employer] Other 02-13-2023 15:20-0400 Body mass index (BMI) [Ratio] 16.27 kg/m2 Azrich Mazas Other [employer] Other 02-13-2023 15:20-0400 Body temperature 98.4 [degF] Azrich Mazas Other [employer] Other 02-13-2023 15:20-0400 Body weight 34.11 kg Azrich Mazas Other [employer] Other 02-13-2023 15:20-0400 Diastolic blood pressure 101 mm[Hg] Azrich Mazas Other [employer] Other 02-13-2023 15:20-0400 Respiratory rate 16 /min Aziz Bakhous Other [employer] Other 02-13-2023 15:20-0400 SaO2% (BldA) [Mass fraction] 99 % Aziz Bakhous Other [facility] [employer] Other 02-13-2023 15:20-0400 Systolic blood pressure 147 mm[Hg] Corazon Krishna Other [facility] [employer] Other 08-02-2022 15:14-0500 Body height 132.1 cm Kaden Golden MD Work Phone: [facility] 08-02-2022 15:14-0500 Body temperature 97.5 [degF] Kaden Golden MD Work Phone: [facility] 08-02-2022 15:14-0500 Body weight 32.2 kg Kaden Golden MD Work Phone: [facility] 08-02-2022 15:14-0500 Diastolic blood pressure 85 mm[Hg] Kaden Golden MD Work Phone: [facility] 08-02-2022 15:14-0500 Heart rate 74 /min Kaden Golden MD Work Phone: [facility] 08-02-2022 15:14-0500 Respiratory rate 16 /min Kaden Golden MD Work Phone: [facility] 08-02-2022 15:14-0500 SaO2% (BldA) [Mass fraction] 93 % Kaden Golden MD Work Phone: [facility] 08-02-2022 15:14-0500 Systolic blood pressure 136 mm[Hg] Kaden Golden MD Work Phone: [facility] 06-20-2022 14:28-0500 Blood Pressure Location Christopher VALERIO [facility] 06-20-2022 14:28-0500 Diastolic blood pressure 76 mm[Hg] Christopher VALERIO [facility] 06-20-2022 14:28-0500 Heart rate 70 /min Christopher VALERIO [facility] [place] 06-20-2022 14:28-0500 Respiratory rate 16 /min Christopher TEODORO [facility] [place] 06-20-2022 14:28-0500 Systolic blood pressure 116 mm[Hg] Christopher LANDERSKasi [facility] [place] 09-22-2021 11:52-0400 Diastolic blood pressure 108 mm[Hg] Radha Sierra MD Work Phone: [facility] 09-22-2021 11:52-0400 Systolic blood pressure 162 mm[Hg] Radha Sierra MD Work Phone: [facility] 09-22-2021 10:58-0400 Body height 132.1 cm Radha Sierra MD Work Phone: [facility] 09-22-2021 10:58-0400 Body mass index (BMI) [Ratio] 16.02 kg/m2 Radha Sierra MD Work Phone: [facility] 09-22-2021 10:58-0400 Body temperature 98.49 [degF] Radha Sierra MD Work Phone: [facility] 09-22-2021 10:58-0400 Body weight 27.94 kg Radha Sierra MD Work Phone: [facility] 09-22-2021 10:58-0400 Heart rate 132 /min Radha Sierra MD Work Phone: [facility] 09-22-2021 10:58-0400 Respiratory rate 16 /min Radha Sierra MD Work Phone: [facility] 09-22-2021 10:58-0400 SaO2% (BldA) [Mass fraction] 99 % Radha Sierra MD Work Phone: [facility] 04-04-2019 09:17-0500 BP Diastolic 89 mm[Hg] Suraj Addison [facility] 04-04-2019 09:17-0500 BP Systolic 155 mm[Hg] Suraj Addison [facility] 04-04-2019 09:07-0500 BMI (Body Mass Index) 16.12 kg/m2 Suraj Addison [facility] 04-04-2019 09:07-0500 Body Temperature 97.59 [degF] [facility] 04-04-2019 09:07-0500 Body weight 28.67 kg Suraj Addiosn [facility] 04-04-2019 09:07-0500 Height 133.4 cm [facility] 04-04-2019 09:07-0500 Pulse (Heart Rate) 95 /min Suraj Addison [facility] 04-04-2019 09:07-0500 Pulse [facility]xim[facility] 98 % [facility] 09:02-0400 BMI (Body Mass Index) 17.09 kg/m2 Nahum Reaves [facility] 09-17-2018 09:02-0400 Body Temperature 97.81 [degF] Nahum Reaves [facility] 09-17-2018 09:02-0400 BP Diastolic 93 mm[Hg] Nahum Reaves [facility] 09-17-2018 09:02-0400 BP Systolic 146 mm[Hg] Nahum Reaves [facility] 09-17-2018 09:02-0400 Height 133.4 cm Nahum Reaves [facility] 09-17-2018 09:02-0400 Pulse (Heart Rate) 109 /min Nahum Reaves [facility] 09-17-2018 09:02-0400 Pulse Oximetry 98 % Nahum Reaves [facility] 09-17-2018 09:02-0400 Weight 30.39 kg Nahum Reaves [facility] 09-26-2017 08:19-0400 BMI (Body Mass Index) 16.94 kg/m2 Nini Pelletier [facility] 09-26-2017 08:19-0400 Height 133.4 cm Nini Pelletier [facility] 09-26-2017 08:19-0400 Weight 30.12 kg Nini Pelletier [facility] 08-28-2017 11:10-0400 BP Diastolic 100 mm[Hg] Nini Pelletier [facility] 08-28-2017 11:10-0400 BP Systolic 130 mm[Hg] N[facility] 08-28-2017 09:59-0400 BMI (Body Mass Index) 16.33 kg/m2 Nini Pelletier [facility] 08-28-2017 09:59-0400 Height 133.4 cm Nini [facility] 08-28-2017 09:59-0400 Weight 29.03 kg N[facility] 08-14-2017 10:39-0400 BMI (Body Mass Index) 16.53 kg/m2 [facility] 08-14-2017 10:39-0400 Height 133.4 cm [facility] 08-14-2017 10:39-0400 Weight 29.39 kg [facility] 07-31-2017 10:19-0500 BP Diastolic 98 mm[Hg] [facility] 07-31-2017 10:19-0500 BP Systolic 150 mm[Hg] [facility] 07-31-2017 10:19-0500 Pulse (Heart Rate) 107 /min [facility] 07-31-2017 09:04-0500 BMI (Body Mass Index) 15.82 kg/m2 [facility] 07-31-2017 09:04-0500 Body Temperature 98.8 [degF] [facility] 07-31-2017 09:04-0500 Height 133.4 cm [facility] 07-31-2017 09:04-0500 Pulse Oximetry 94 % [facility] 07-31-2017 09:04-0500 Weight 28.12 kg [facility] Encounters Encounter Date Encounter Type Care Provider Facility Start: 02-26-2024 End: 02-26-2024 ambulatory [facility] Work Phone: Start: 02-26-2024 End: 02-26-2024 Patient encounter procedure [facility] Work Phone: Start: 01-22-2024 End: 01-22-2024 ambulatory LYNN T [facility] Start: 01-20-2024 End: 01-23-2024 Evaluation and management of inpatient DAVID ASKEW [facility] Start: 01-20-2024 End: 01-21-2024 [facility] Start: 11-14-2023 End: 11-14-2023 ambulatory [facility] Work Phone: Start: 11-14-2023 End: 11-14-2023 Patient encounter procedure [facility] Work Phone: Start: 11-05-2023 Non-patient / Non-visit [facility] [employer] Work Phone: Start: 03-01-2023 End: 03-01-2023 ambulatory Corazon Mazas Other [employer] Other Start: 03-01-2023 Telephone encounter Corazon Darians[facility] Start: 02-13-2023 End: 02-13-2023 ambulatory Corazon Darianlauras Other [facility] [employer] Other Start: 02-13-2023 Office outpatient ne w 30 minutes Corazon Dariansahara [facility] Start: 08-17-2022 End: 08-18-2022 ambulatory LEONARDO LENZ Facility: Start: 08-02-2022 End: 08-02-2022 ambulatory KADEN GOLDEN Facility:[facility] Start: 08-02-2022 End: 08-02-2022 ambulatory Kaden Golden [...] 07-16-2022 Refill Radha Sierra MD Work Phone: [facility] Comment on above: HTN Start: 07-12-2022 End: 07-13-2022 ambulatory LEONARDO SHAMMO Facility:[id number] Start: 07-05-2022 Encounter for preprocedural cardiovascular examination DR CHRISTOPHER VALERIO . [facility] Start: 07-05-2022 Encounter for preprocedural laboratory examination DR CHRISTOPHER VALERIO . [facility] Start: 07-04-2022 End: 07-05-[address] CHRISTOPHER VALERIO . Facility: Start: 07-04-2022 End: 07-05-2022 Encounter for preprocedural laboratory examination DR CHRISTOPHER VALERIO . Facility: Start: 06-20-2022 End: 06-21-2022 ambulatory LEONARDO SHAMMO Facility:[facility] Start: 06-20-2022 End: 06-20-2022 Patient encounter procedure Christopher VALERIO [facility] Start: 06-05-2022 End: 06-05-2022 ambulatory LEONARDO SHAMMO Facility: Start: 05-18-2022 End: 05-19-2022 ambulatory LEONARDO SHAMMO Facility: Start: 05-16-2022 End: 05-17-2022 ambulatory LEONARDO SHAMMO Facility: Start: 04-24-2022 End: 04-25-[address] JANIE TOSCANO . Facility: Start: 04-12-2022 End: 04-13-2022 ambulatory LEONARDO SHAMMO Facility:[id number] Start: 04-08-2022 End: 04-09-[address] CHRISTOPHER VALERIO . Facility: Start: 03-08-2022 End: 03-09-2022 ambulatory LEONARDO SHAMMO Facility:[facility] Start: 03-03-2022 Refill Radha Sierra MD Work Phone: [facility] Comment on above: Acquired hypothyroid ism Start: 03-01-2022 End: 03-01-[address] JANIE TOSCANO . Facility:[facility] Start: 03-01-2022 ambulatory LEONARDO LENZ Facility:[facility] Start: 02-17-2022 ambulatory LEONARDO LENZ Facility:[facility] Start: 02-16-2022 End: 02-17-[address] DOCTOR WHITMAN Facility:[facility] Start: 09-22-2021 End: 09-26-2021 ambulatory RADHA SIERRA [facility] Start: 09-22-2021 End: 09-22-2021 Office outpatient visit 25 minutes Radha Sierra MD Work Phone: [facility] Comment on above: HTN (Primary Dx); Acquired hypothyroidism; Hyperlipidemia, unspecified hyperlipidemia type; Colon cancer screening; Encounter for screening for malignant neoplasm of breast, unspecified screening modality; Healthcare maintenance; Sinus tachycardia, chronic; Elevated serum creatinine; Prediabetes; Hypertension, benign Start: 04-30-2020 End: 04-30-2020 Patient encounter procedure [facility] Start: 12-25-2019 Patient encounter procedure NAHUM [facility] Start: 10-01-2019 End: 10-01-2019 Patient encounter procedure [facility]HUM [facility] Start: 09-25-2019 End: 09-25-2019 Patient encounter procedure [facility]HUM [facility] Start: 06-11-2019 Patient encounter procedure [facility] Start: 04-04-2019 End: 04-04-2019 Patient encounter procedure Suraj Addison Work Phone: [facility] Comment on above: Well adult exam (Beatriz joceline Dx); HTN; Acquired hypothyroidism; Hyperlipidemia, unspecified hyperlipidemia type; Unexplained weight loss; Screening for malignant neoplasm of breast; Hearing loss, unspecified hearing loss type, unspecified laterality; Family history of diabetes mellitus Start: 09-17-2018 End: 09-17-2018 Office outpatient visit 15 minutes Nahum Reaves Work Phone: [facility] Comment on above: Bilateral hearing lo ss, unspecified hearing loss type (Primary Dx); Intellectual disability (CORBIN Polo, ); Short stature Start: 09-26-2017 End: 09-26-2017 Office/outpatient visit, est, level 4 Nini Pelletier Work Phone: [facility] Start: 08-28-2017 Office/outpatient vi sit, est, level 3 Nini Pelletier Work Phone: [facility] Start: 08-14-2017 Office/outpatient vi sit, est, level 3 Nini Pelletier Work Phone: [facility] Start: 07-31-2017 Office/outpatient vi sit, est, level 3 Nini Pelletier Work Phone: [facility] Start: 06-15-2011 End: 04-04-2019 Patient encounter status Radha Sierra MD Work Phone: [facility] Work Phone: Procedures Date Procedure Procedure Detail [...] Health Questionnaire 9) score Depression Screening (PHQ-2/9) [facility] Start: 05-28-2022 DEPRESSION ASSESSMENT DEPRESSION ASS [facility] Start: 01-26-2022 Influenza vaccination [facility] Start: 10-07-2021 End: 10-07-2021 Patient encounter procedure 10/07/2021 Office Visit Primary Care Radha Sierra MD [address] [place] [address] [facility] Start: 03-04-2021 COVID-19 Vaccine (3 - Booster for Pfizer series) COVID-19 Vaccine (3 - Booster for Pfizer series) [facility] Start: 11-27-2020 COVID-19 Vaccine (3 - Booster for Pfizer series) COVID-19 Vaccine (3 - Booster for Pfizer series) [facility] Start: 04-04-2020 History and physical examination, annual for health maintenance Wellness Visit [facility] Start: 06-07-2019 Depression screening using PHQ-9 (Patient Health Questionnaire 9) score DEPRESSION SCREENING (PHQ9) [facility] Start: 06-07-2019 Screening for substa nce abuse SUBSTANCE ABUSE SCREENING (AUDIT-C) [facility] Start: 05-05-2019 End: 05-05-2019 Office Visit 05/05/2019 Office Visit Primary Care Nahum Reaves CNP [address] [place] [address] [phone] [facility] Start: 10-01-2018 End: 10-01-2018 Office Visit 10/01/2018 Office Visit Primary Care Nahum Reaves CNP [address] [place] [address] [phone] [facility] Start: 03-29-2018 End: 03-29-2018 Ambulatory 03/29/2018 Office Visit Primary Care Nini Pelletier CNP [address] [place] [address] [phone] [facility] Start: 01-26-2018 Influenza vaccinatio n given SEQUENTIAL INFLUENZA VACCINE (#1) [facility] Start: 09-25-2017 Ambulatory 09/25/2017 Off ice Visit Primary Care Nini Pelletier CNP [address] [place] [address] [phone] [facility] Start: 2017 COLOGUARD (FIT-DNA) COLOGUARD (FIT-D NA) [facility] Start: 2017 Colonoscopy COLONOSCOPY [facility] Start: 2017 COLORECTAL CANCER SCREENING COLORECTAL CANCER SCREENING [facility] Start: [address] COLONOGRAPHY [facility] Start: 2017 DIABETES SCREEN DIABETES SCREEN [facility] Start: 2017 FECAL OCCULT BLOOD FECAL OCCULT BLOO D [facility] Start: 2017 LIPID SCREEN LIPID SCREEN [facility] Start: 2017 SIGMOIDOSCOPY SIGMOIDOSCOPY [facility] Start: 08-28-2017 Ambulatory 08/28/2017 Off ice Visit Primary Care Nini Pelletier CNP [address] [place] [address] [phone] [facility] Start: 08-07-2017 Ambulatory 08/07/2017 Off ice Visit Primary Care Nini Pelletier CNP [address] [place] [address] [phone] [facility] Start: 2012 Mammography MAMMOGRAM [facility] Start: 2012 Screening for malign ant neoplasm of breast Mammogram [facility] Start: 2002 HPV TESTING HPV TESTING [facility] Start: 1993 PAP TESTING PAP TESTING [facility] Start: 09-24-1991 Urine microalbumin profile DTAP,TDAP ,TD (1 - Tdap) [facility] Start: 1990 Hepatitis C screening Hepatitis C [facility] Start: 1990 HEPATITIS C SCREENING HEPATITIS C [facility] Start: 1990 HIV SCREENING HIV SCREENING [facility] Start: 09-24-1987 HIV screening HIV Screening [facility] Start: 09-24-1975 History and physical examination, annual for health maintenance Wellness Visit [facility] Start: 1972 HEPATITIS B (1 of 3 - 3-dose series) HEPATITIS B (1 of 3 - 3-dose series) [facility] Start: 1972 Protein mass conc Mammogram [facility] Start: 1972 Screening for malign ant neoplasm of cervix PAP SMEAR [facility] Start: 1972 Screening for malign ant neoplasm of colon [facility] Start: 1972 Screening mammography Mammogram [facility] Cologuard Cologuard Lab Ro utine Colon cancer screening Ordered: 09/22/2021 [facility] Comment on above: Ordered: 09/22/2021 End: 04-04-2020 Complete blood count with white cell differential, manual CBC and Differential Lab Routine Unexplained weight loss 1 Occurrences starting 04/04/2019 until 04/04/2020 [facility] Comment on above: 1 Occurrences starti ng 04/04/2019 until 04/04/2020 End: 04-04-2020 Comprehensive metabolic 2000 panel Comprehensive Metabolic Panel Lab Routine HTN 1 Occurrences starting 04/04/2019 until 04/04/2020 [facility] Comment on above: 1 Occurrences starti ng 04/04/2019 until 04/04/2020 End: 09-22-2022 Comprehensive metabolic 2000 panel - Serum or Plasma Comprehensive Metabolic Panel Lab Routine 1 Occurrences starting 09/22/2021 until 09/22/2022 [facility] Comment on above: 1 Occurrences starti ng 09/22/2021 until 09/22/2022 Comprehensive metabo lic 2000 panel - Serum or Plasma Comprehensive Metabolic Panel Lab Routine 09/22/2021 12:11 PM EDT [facility] End: 07-31-2018 Comprehensive metabolic panel [AGGREGATE] Comprehensive Metabolic Panel Routine HTN 1 Occurrences starting 07/31/2017 until 07/31/2018 [facility] Comprehensive metabo lic panel [AGGREGATE] Comprehensive Metabolic Panel Routine HTN 07/31/2017 10:43 AM EST [facility] End: 04-04-2020 HbA1c (Bld) [Mass fraction] Hemoglobin A1c Lab Routine Family history of diabetes mellitus 1 Occurrences starting 04/04/2019 until 04/04/2020 [facility] Comment on above: 1 Occurrences starti ng 04/04/2019 until 04/04/2020 End: 09-22-2022 Hemoglobin A1c/Hemoglobin.total in Blood Hemoglobin A1c Lab Routine 1 Occurrences starting 09/22/2021 until 09/22/2022 [facility] Comment on above: 1 Occurrences starti ng 09/22/2021 until 09/22/2022 Hemoglobin A1c/Hemoglobin.total in Blood Hemoglobin A1c Lab Routine 09/22/2021 12:11 PM EDT [facility] End: 09-22-2022 Hepatitis C antibody measurement Hepatitis C Antibody Lab Routine Healthcare maintenance 1 Occurrences starting 09/22/2021 until 09/22/2022 [facility] Comment on above: 1 Occurrences starti ng 09/22/2021 until 09/22/2022 Hepatitis C antibody measurement Hepatitis C Antibody Lab Routine Healthcare maintenance 09/22/2021 12:11 PM EDT [facility] End: 09-22-2022 Human immunodeficiency virus antibody test HIV 1/2 Screen (4th Generation) Lab Routine Healthcare maintenance 1 Occurrences starting 09/22/2021 until 09/22/2022 [facility] Comment on above: 1 Occurrences starti ng 09/22/2021 until 09/22/2022 Human immunodeficien cy virus antibody test HIV 1/2 Screen (4th Generation) Lab Routine Healthcare maintenance 09/22/2021 12:11 PM EDT [facility] End: 04-04-2020 Lipid 1996 panel Lipid Panel Lab Routine HTN 1 Occurrences starting 04/04/2019 until 04/04/2020 [facility] Comment on above: 1 Occurrences starti ng 04/04/2019 until 04/04/2020 End: 09-22-2022 Lipid 1996 panel - Serum or Plasma Lipid Panel Lab Routine Hyperlipidemia, unspecified hyperlipidemia type 1 Occurrences starting 09/22/2021 until 09/22/2022 [facility] Comment on above: 1 Occurrences starti ng 09/22/2021 until 09/22/2022 Lipid 1996 panel - S luz or Plasma Lipid Panel Lab Routine Hyperlipidemia, unspecified hyperlipidemia type 09/22/2021 12:11 PM EDT [facility] End: 07-31-2018 Lipid panel Lipid Panel Routine Hyperlipidemia, Unspecified Hyperlipidemia Type 1 Occurrences starting 07/31/2017 until 07/31/2018 [facility] Lipid panel Lipid Panel Rout ine Hyperlipidemia, unspecified hyperlipidemia type 07/31/2017 10:43 AM EST [facility] End: 09-01-2023 MAURICIO SCREENING [facility]CRE[facility] [place] Radiology Routine Atypical ductal hyperplasia of left breast Encounter for screening mammogram for malignant neoplasm of breast 1 Occurrences starting 08/02/2022 until 09/01/2023 [facility] Work Phone: Comment on above: 1 Occurrences starti ng 08/02/2022 until 09/01/2023 End: 06-04-2020 MG Breast - bilateral screening Mammography Screening Bilateral Imaging Routine Screening for malignant neoplasm of breast 1 Occurrences starting 04/04/2019 until 06/04/2020 [facility] Comment on above: 1 Occurrences starti ng 04/04/2019 until 06/04/2020 End: 11-22-2022 MG Breast - bilateral Screening Mammography Screening [place] Bilateral Imaging Routine Encounter for screening for malignant neoplasm of breast, unspecified screening modality 1 Occurrences starting 09/22/2021 until 11/22/2022 [facility] Comment on above: 1 Occurrences starti ng 09/22/2021 until 11/22/2022 End: 04-04-2020 Microalbumin measurement, urine, quantitative Microalbumin/Creatinine Ratio, UR Random Lab Routine HTN 1 Occurrences starting 04/04/2019 until 04/04/2020 [facility] Comment on above: 1 Occurrences starti ng 04/04/2019 until 04/04/2020 Microalbumin, Urine, Random Microalbumin, Urine, Random Routine HTN 07/31/2017 10:43 AM EST [facility] OUTSIDE SURG PATH SL FABIO REVIEW OUTSIDE SURG PATH SLIDE REVIEW Lab Routine Ordered: 08/02/2022 [facility] Work Phone: Comment on above: Ordered: 08/02/2022 Renal function 2000 panel - Serum or Plasma [facility] Renal function 1999 panel - Serum or Plasma [facility] End: 09-22-2022 Thyrotropin [Units/volume] in Serum or Plasma TSH with Reflex Free T4 Lab Routine Acquired hypothyroidism 1 Occurrences starting 09/22/2021 until 09/22/2022 [facility] Work Phone: Comment on above: 1 Occurrences starti ng 09/22/2021 until 09/22/2022 Thyrotropin [Units/v olume] in Serum or Plasma TSH with Reflex Free T4 Lab Routine Acquired hypothyroidism 09/22/2021 12:11 PM EDT [facility] End: 04-04-2020 TSH Qn TSH Lab Routine Acquired hypothyroidism 1 Occurrences starting 04/04/2019 until 04/04/2020 [facility] Comment on above: 1 Occurrences starti ng 04/04/2019 until 04/04/2020 End: 07-31-2018 TSH with Reflex Free T4 TSH with Reflex Free T4 Routine Acquired hypothyroidism 1 Occurrences starting 07/31/2017 until 07/31/2018 [facility] TSH with Reflex Free T4 TSH with Reflex Free T4 Routine Acquired hypothyroidism 07/31/2017 10:43 AM EST [facility] Immunizations Immunization Date Immunization Notes Care Provider Nelly barton 05-02-2022 influenza virus vaccine, unspecified formulation Christopher VALERIO [facility] [place] 05-02-2022 Seasonal, trivalent, recombinant, injectable influenza vaccine, preservative free Radha Sierra MD Work Phone: [facility] 10-02-2020 SARS-CoV-2 (COVID-19 ) mRNA BNT-162b2 evangelina VALERIO [facility] Comment on above: Result Comment: 2022: TPV40 09-11-2020 SARS-CoV-2 (COVID-19 ) mRNA BNT-162b2 evangelina VALERIO [facility] Comment on above: Result Comment: 2022: TPV40 08-03-2014 tetanus toxoid, redu maria teresa diphtheria toxoid, and acellular pertussis vaccine, adsorbed; Translations: [TDAP] [facility] 08-03-2014 tuberculin skin test ; purified protein derivative solution, intradermal; Translations: [PPD TEST] [facility] Payers Date Payer Category Payer Medicaid [id number]. [id number] 2019 Medicare [id number] 2014 Medicaid [id number] 1993 Medicare MEDICARE MEDICAR E PART A & B xxxxxxxxxxx 1993-Present [place] xxxxxxxxxxx [id number]. [id number] 1993 Medicare [id number]. 1.13.385.2.7.3. [id number] 1972 Unknown [id number] 2.16.840.1.989270.3.579.2.903 1972 Unknown [id number] 2.16.840.1.628428.3.579.2.903 1972 Unknown [id number] 2.16.840.1.751750.3.579.2.903 1972 Unknown [id number] 2.16.840.1.516712.3.579.2.903 1972 Unknown [id number] 2.16.840.1.845824.3.579.2.903 1972 Unknown [id number] 2.16.840.1.503665.3.579.2.900 1972 Unknown [id number] 2.16.840.1.381986.3.579.2.727 1972 Unknown [id number] 2.16.840.1.067400.3.579.2.727 1972 Unknown [id number] 2.16.840.1.025153.3.579.2.727 1972 Unknown [id number] 2.16840.1.942487.3.579.2.727 1972 Unknown [id number] 2.16.840.1.724631.3.579.2.727 1972 Unknown [id number] 2.16.840.1.310935.3.579.2.727 1972 Unknown [id number] 2.16.840.1.277546.3.579.2.593 1972 Unknown [id number] 2.16.840.1.094880.3.579.2.593 1972 Unknown [id number] 2.16.840.1.098277.3.579.2.593 1972 Unknown [id number] 2.16.840.1.991480.3.579.2.593 1972 Unknown [id number] 2.16.840.1.589476.3.579.2.593 1972 Unknown [id number] 2.16.840.1.420490.3.579.2.593 1972 Unknown [id number] 2.16.840.1.674454.3.579.2.593 1972 Unknown [id number] 2.16.840.1.092727.3.579.2.593 1972 Unknown [id number] 2.16.840.1.768689.3.579.2.593 1972 Unknown [id number] 2.16.840.1.091204.3.579.2.593 1972 Unknown [id number] 2.16.840.1.224563.3.579.2.593 1972 Unknown [id number] 2.16.840.1.359884.3.579.2.593 1972 Unknown [id number] 2.16.840.1.054120.3.579.2.1286 1972 Unknown [id number] 2.16.840.1.627226.3.579.2.1286 1972 Unknown [id number] 2.16.840.1.778605.3.579.2.1286 1972 Unknown [id number] 2.16.840.1.084111.3.579.2.175 1959 Medicaid [id number] 1959 Medicare [id number] Medicare [id number] Medicare xxxxxxxxxx 2.16.840.1.201551.3.249.13 Social History Date Type Detail Facility Start: 09-26-2017 End: 11-14-2023 Tobacco smoking status NEIS Never smoker [facility] Start: 1970 Sex Assigned At Not on file [facility] Start: 04-04-2019 End: 09-22-2021 Alcohol intake Current non-drinker of alcohol (finding) [facility] Start: 04-04-2019 End: 04-30-2020 History SDOH Food Worry 1 [facility] Start: 04-04-2019 End: 08-02-2022 Tobacco use and exposure Smokeless tobacco non-user [facility] Start: 09-11-2021 End: 09-21-2021 Exposure to SARS-CoV-2 (event) Not sure [facility] Tobacco smoking status Never [facility] [place] Sex Assigned At Female [facility] History of tobacco use Passive smoker [facility] Start: 08-02-2022 Alcohol intake Ex-drinker (finding) [facility] Start: 1970 Sex Assigned At Female F [facility] Functional Status Date Assessment Result [...] E78.5) Follows with PCP for hyperlipidemia management. [facility] [employer] [facility] Other 03-08-2023 NoteHNO ID: [id number] Author: Kaden Golden MD Service: ? Author Type: Physician Type: Progress Notes Filed: 08/02/2022 4:01 PM Note Text: PATIENT NAME: Lindsey Polo [facility] NO.: [id number] ATTENDING PHYSICIAN: Kaden Golden MD DATE OF [...] in pharmacologic risk reduc (more content not included)...[facility]03-08-2023 History of Present illness Narrative* Kaden Golden MD - 08/02/2022 3:28 PM EST Images from the original note were not included. PATIENT NAME: Lindsey Polo CLINIC NO.: [id number] ATTENDING PHYSICIAN: Kaden Golden MD DATE OF [...] number below. Kaden Golden M.D. Hematology/Medical Oncology [place] [phone] CC: MD Leonardo Richards NP [facility] Telephone encounter Note * Telephone Encounter - Rashad Ashley MA - 07/17/2022 11:35 AM EST Patient needs an appointment [id number] Miscellaneous Notes* Telephone Encounter - Rashad Ashley MA - 07/17/2022 11:35 AM EST Patient needs an appointment documented in this [id number] NoteOPERATIVE NOTE OPERATION DATE: 07/12/2022 PREOPERATIVE DIAGNOSIS: [...] in good condition. CC: Patient's family physicianThe [place] [address]-24-2023 NoteChief Complaint consultation for abnormal mammogram/biopsy HPI [...] mcg= 1 tab(s), Oral, Daily Potassium Chloride (Bij-Heij-Cjz M20) 20 mEq oral tablet, extended release, [...] SARS-CoV-2 (COVID-19) mRNA BN (more content not included)...[facility]Result Comment: Electronically Signed By: TEODORO MALIK, Christopher Hernandez\.br\Date and Time Signed: 06/20/22 14:54 [id number] NoteOPERATIVE NOTE OPERATION DATE: 04/12/2022 PREOPERATIVE DIAGNOSIS: [...] room in good condition. CC: Leonardo Lenz [facility]11-16-2022 NoteOPERATIVE NOTE OPERATION DATE: 04/12/2022 ADDENDUM: Follow up colonoscopy for screening should be in 10 years.[facility] [id number] NoteChief Complaint consultation for screening colonoscopy HPI [...] mcg= 1 tab(s), Oral, Daily Potassium Chloride (Grs-Gcoq-Nns M20) 20 mEq oral tablet, extended release, [...] Use:., 03/08/2022 Family History Family history is negativePar[facility] HospitalComment on above:Result Comment: Electronically Signed By: TEODORO MALIK, Christopher Ragland\Date and Time Signed: 03/08/22 16:55 [id number] Evaluation + Plan note* Assessment & Plan Note - Radha Sierra MD - 09/22/2021 12:07 PM EDTAssociated Problem(s): Prediabetes Noted on last A1c Rechecking A1c [id number] Miscellaneous Notes* Assessment & Plan Note - [...] synthroid at current dose. documented in this [id number] Evaluation + Plan note* Assessment & Plan Note - Radha Sierra MD - 09/22/2021 12:06 PM EDTAssociated Problem(s): Elevated serum creatinine Noted on last blood work in 2019. Rechecking labs. [id number] Evaluation + Plan note* Assessment & Plan Note - Radha Sierra MD - 09/22/2021 12:04 PM EDTAssociated Problem(s): Sinus tachycardia, chronic Chronic. Asymptomatic. Appears to have had this as far back as 2016 per chart review. Not sure it has been worked up Will need to discuss starting a BB at next visit and cardiology referral. [id number] Evaluation + Plan note* Assessment & Plan Note - Radha Sierra MD - 09/22/2021 12:02 PM EDTAssociated Problem(s): Hyperlipidemia Chronic. On Zocor. Continue. Checking lipid panel. [id number] Evaluation + Plan note* Assessment & Plan Note - Radha Sierra MD - 09/22/2021 11:59 AM EDTAssociated Problem(s): HTN Chronic. Not at goal. Asymptomatic. Does not take her medications consistently. Encouraged her to do this. No changes to meds at this time given inconsistent use. Will see back in 3 weeks and re-evaluate. [id number] Evaluation + Plan note* Assessment & Plan Note - Radha Sierra MD - 09/22/2021 11:57 AM EDTAssociated Problem(s): Hypothyroidism Chronic. Reports stable blood levels on Synthroid 25 mg Rechecking labs today Refilled synthroid at current dose. [id number] History of Present illness Narrative* Radha Sierra [...] difficult at all - documented in this encounterAs[facility] CenterEvaluation + Plan note No data available for this section General [facility] [place] Evaluation + Plan noteGeneral Surgery [place] evaluation note* Diagnosis HTN- Primary Essential hypertension, benign Acquired hypothyroidism Unspecified hypothyroidism Hyperlipidemia, unspecified hyperlipidemia type Encounter for screening for malignant neoplasm of breast, unspecified screening modality Sinus tachycardia, chronic Other specified cardiac dysrhythmias Elevated serum creatinine Other nonspecific findings on examination of blood Prediabetes Other abnormal glucose [facility] Diagnosis HTN- Primary Essential hypertension, benign Acquired hypothyroidism Unspecified hypothyroidism Hyperlipidemia, unspecified hyperlipidemia type Encounter for screening for malignant neoplasm of breast, unspecified screening modality Sinus tachycardia, chronic Other specified cardiac dysrhythmias Elevated serum creatinine Other nonspecific findings on examination of blood Prediabetes Other abnormal glucose [facility] this [facility]* Diagnosis Acquired hypothyroidism Unspecified hypothyroidism documented in this encounter [facility] note* Diagnosis Atypical ductal hyperplasia of left breast- Primary Encounter for screening mammogram for malignant neoplasm of breast Other screening mammogram [facility]* Diagnosis HTN Essential hypertension, benign documented in this encounter [facility] noteNo [facility] [employer] Other Evaluation note* Diagnosis Onset Date Resolution Status Chronic kidney disease, stage 3b acute Hyperlipidemia acute Hypertensive nephropathy acu te Hypokalemia acute Hypomagnesemia acute Vitamin D deficiency acute [facility] Work Phone: Evaluation note* Diagnosis Onset Date Resolution Status OSMANY (acute kidney injury) ac three affiliated Chronic kidney disease, stage 3b acute Hyperkalemia acute Hyperlipidemia acute Hypertensive nephropathy acu te Hypokalemia acute Hypomagnesemia acute Vitamin D deficiency acute [facility] Work Phone: History general Narrative - Reported* Type Description Date Medical History CKD 3b Medical History HYPERTENSION Medical History HYPERLIPIDEMIA Medical History OSTEOPOROSIS Medical History HYPOTHYROIDISM Surgical History LEFT BREAST BIOPSY 2021 [facility] Other Hospital Discharge instructions No data available for this section General [facility] Progress note No data available for this section [facility] Rekkpd for referral (narrative) Referred by: Christopher VALERIO MD General Surgery [facility] Revnjy for referral (narrative)* Diagnostic Procedure Only (Routine) - Pending Review Specialty Diagnoses / Procedures Referred By Contfer t Referred To Contact [facility] Diagnoses Atypical ductal hyperplasia of left breast Encounter for screening mammogram for malignant neoplasm of breast Procedures MAURICIO SCREENING W ROOSEVELT SCREENING DIGITAL BREAST TOMOSYNTHESIS BI SCREENING MAMMOGRAPHY BI 2-VIEW BREAST INC CAD Kaden Golden MD [address] [place] [address] [facility] [address] [place] [address] Referral ID Status Reason Start Date Expiration Date Visits Requested Visits Authorized [id number] Pending Review Auto-Generat ed Referral 08/02/2022 09/01/2023 1 1 [facility] Instructions * Patient Instructions - Nini Pelletier [...] Log into your personal health record on [email or web address] and enter H967 in the Education box to learn more about DASH Diet: Care Instructions. Current as of: May 02, 2017 Content Version: 11.6 7170-7434 [employer]. Care instructions adapted under license by your healthcare professional. If you have questions about a medical condition or this instruction, always ask your healthcare professional. [employer] disclaims any warranty or liability for your [...] Log into your personal health record on [email or web address] and enter H967 in the Education box to learn more about DASH Diet: Care Instructions. Current as of: August 18, 2015 Content Version: 11.2 7217-4327 [employer]. Care instructions adapted under license by your healthcare professional. If you have questions about a medical condition or this instruction, always ask your healthcare professional. [employer] disclaims any warranty or liability for your [...] Log into your personal health record on [email or web address] and enter H967 in the Education box to learn more about DASH Diet: Care Instructions. Current as of: August 18, 2015 Content Version: 11.2 7379-8860 [employer]. Care instructions adapted under license by your healthcare professional. If you have questions about a medical condition or this instruction, always ask your healthcare professional. [employer] disclaims any warranty or liability for your [...] Log into your personal health record on [email or web address] and enter X567 in the Education box to learn more about High Blood Pressure: Care Instructions. Current as of: January 03, 2016 Content Version: 11.2 7391-4027 [employer]. Care instructions adapted under license by your healthcare professional. If you have questions about a medical condition or this instruction, always ask your healthcare professional. [employer] disclaims any warranty or liability for your [...] Log into your personal health record on [email or web address] and enter P501 in the Education box to learn more about Learning About High Blood Pressure. Current as of: August 18, 2015 Content Version: 11.2 0120-8810 [employer]. Care instructions adapted under license by your healthcare professional. If you have questions about a medical condition or this instruction, always ask your healthcare professional. [employer] disclaims any warranty or liability for your [...] Name: Lindsey Polo : 1970 Location: [address], [place] [address] ASSESSMENT: Diagnoses and all orders for this visit: Bilateral hearing loss, unspecified hearing loss type Intellectual disability (CORBIN Polo, ) Short stature PLAN: -Form completed for [employer]. Pt appears to be appropriate for this [...] with her transportation through her work place ([employer]). She reports that the driversare rude and sometimes don't come . She spoke to the pt's FCBDD counter caser (Johnson Cheek) re:the situation. She suggested that the pt try using [employer]. Pt needs the application signed. Pt's cousin [...] and would like to start using the [employer]. Review of Systems Constitutional: Negative for activity [...] Name: Lindsey Polo : 1970 Location: [address], [place] [address] ASSESSMENT: Diagnoses and all orders for this [...] Directive (Living Will and/or Durable Power of Billet Heater for Health Care)?: Copy on file What [...] file Gets together: Not on file Attends baptism service: Not on file Active member of club or organization: Not on file Attends meetings of clubs or organizations: Not on file Relationship status: Not on file Other Topics Concern Not on file Social History Narrative Not on file Allergies: No Known Allergies Care Team Patient Care Team: Nahum Reaves CNP as PCP - General (Nurse Practitioner) Pharmacy / Equipment Co. (DME) [facility]/pharmacy #[id number] [place] - [address] [facility] [address] [facility] [address] Objective Blood pressure (!) 155/89, pulse 95, [...] Documents on File Type Date Recorded Patient Criminalist Technician Expl anation Advance Directives and Living Will Documents on File Type Date Recorded Patient Criminalist Technician Expl anation Advance Directives and Livin g Will 09/22/2021 10:52 AM Advance Directive Response Recorded Date/ Time Advance Directives No October 16 3:53pm Summary Purpose Family History Relationship Condition Age at Onset Recorded Date/T yakelin father Unknown Reason for Referral Status Reason Specialty Diagnoses / Procedures Referred By Contact Referred To Contact Authorized Gastroenterology Diagnoses Unexplained weight loss Suraj Addison MD [address] [place] [address] Rudy Sanchez DO [address] [facility] [address] [place] [address] Status Reason Specialty Diagnoses / Procedures Referred By Contact Referred To Contact Authorized Service Not Available Internally Audiology Diagnoses Hearing loss, unspecified hearing loss type, unspecified laterality Suraj Addison MD [address] [place] [address] Kamaljit Viera [address] [place] [address] Status Reason Specialty Diagnoses / Procedures Referred By Contact Referred To Contact Authorized Service Not Available Internally Nephrology Diagnoses Hypertension, benign Suraj Addison MD [address] [place] [address] Marilee Song MD [address] [facility] [address] [place] [address] Status Reason Specialty Diagnoses / Procedures Referred By Contact Referred To Contact Pending Review Radiology Diagnoses Screening for malignant neoplasm of breast Procedures Mammography Screening Bilateral Suraj Addison MD [address] [place] [address] Specialty Diagnoses / Procedures Referred By Contac t Referred To Contact Radiology / Central Scheduling Diagnoses Encounter for screening for malignant neoplasm of breast, unspecified screening modality Procedures Mammography Screening Roosevelt Bilateral Radha Sierra MD [address] [place] [address] Central Scheduling [address] [place] [address] Referral ID Status Reason Start Date Expiration Date Visits Requested Visits Authorized [id number] Authorized Specialty Services Required/Pat ient's Best Interest 09/22/2021 09/22/2022 1 1 Chief Complaint and Reason for Visit Chief Complaint RENAL 6 month f/u Reason for Visit Chronic kidney disea se, stage 3b Hyperlipidemia Hypertensive nephropathy Hypokalemia Hypomagnesemia Vitamin D deficiency Chief Complaint RENAL 4 MONTH F/U Reason for Visit [facility] Chronic kidney disease, stage 3b Hyperkalemia Hyperlipidemia [...] section and content) DATE CREATED AUTHOR 04/30/2020 [facility] DATE CREATED AUTHOR AUTHOR'S ORGANIZ ATION 09/27/2021 [facility] DATE CREATED AUTHOR AUTHOR'S ORGANIZ ATION 08/04/2022 [facility] DATE CREATED AUTHOR AUTHOR'S ORGANIZ ATION 08/08/2022 [facility] DATE CREATED AUTHOR AUTHOR'S ORGANIZ ATION 08/21/2022 [facility] DATE CREATED AUTHOR AUTHOR'S ORGANIZ ATION 01/21/2024 [facility] DATE CREATED AUTHOR AUTHOR'S ORGANIZ ATION 01/24/2024 [facility] DATE CREATED AUTHOR AUTHOR'S ORGANIZ ATION 01/25/2024 [facility] Care Teams (unrecognized sec tion and content) Team Status: Active Member Role Status Dates Natasha Kelley APRN Primary Care Provider Active Team Status: Inactive Member Role Status Dates Natasha Kelley APRN Primary Care Provider Active Start: February 26, 2024 End: February 26, 2024 Corazon Krishna MD Attending Provider Active Star t: February 26, 2024 End: February 26, 2024 Mail Sorter Relationship Specialty Start Date End Date Radha Sierra MD [facility] [place] [id number] PCP - General Family Medicine 09/22/21 Mail Sorter Relationship Specialty Start Date End Date Radha Sierra MD [address] [place] [id number] PCP - General Family Medicine 09/22/21 Mail Sorter Relationship Specialty Start Date End Date Radha Sierra MD [address] [place] [address] PCP - General Family Medicine 09/22/21 Mail Sorter Relationship Specialty Start Date End Date Leonardo Lenz(Historical), RECORD MAKER PCP - General Primary Care 07/31/22 Janie Toscano [address] [place] [address] [place] [address] AUTOMATION ENGINEERING MANAGER 07/31/22 Mail Sorter Relationship Specialty Start Date End Date Radha Sierra MD [address] [place] [address] PCP - General Family Medicine 09/22/21 Team Status: Active Member Role Status Dates Natasha Kelley APRN Primary Care Provider Active Team Status: Active Member Role Status Dates Leonardo Lenz , [facility] Primary Care Provider Active Start: November 05, [...] or prosecute any alcohol or drug abuse patient.[facility] Goals (unrecognized section and content) Goals may [...] BE BASED ON THE PRIMARY CLINICAL RECORDS. [facility] [employer]ango! [facility]. provides no warranty or guarantee of the accuracy or completeness of information in this document.
[2024-05-08 12:38] LABS: Alanine Aminotransferase 22 U/L (14-59); Albumin Globulin Ratio 0.9; Albumin Level 3.7 g/dL (3.4-5.0); Alkaline Phosphatase 115 U/L (46-116); Anion Gap 17.3; Aspartate Amino Transferase 16 U/L (15-37); BUN Creatinine Ratio 9.8; Bilirubin Total 0.4 mg/dL (0.2-1.0); Calcium 9.2 mg/dL (8.5-10.1); Carbon Dioxide 25.4 mmol/L (21.0-32.0); Chloride 103 mmol/L (98-107); Chol HDL Ratio 3.1; Cholesterol 295 mg/dL (<=200); Estimated GFR (African America 47 (>=60 mL/min/1.73m^2); Estimated GFR (Non-African Ame 39 (>=60 mL/min/1.73m^2); Globulin 3.9 g/dL; Glucose 119 mg/dL (74-106); HDL Cholesterol 95 mg/dL (40-60); Potassium 3.7 mmol/L (3.5-5.1); Sodium 142 mmol/L (136-145); TSH W/ REFLEX FT4 2.675 uIU/mL (0.358-3.740); Total Protein 7.6 g/dL (6.4-8.2); Triglycerides 118 mg/dL (<=150); VLDL CHOLESTEROL 23.6 mg/dL
== END 2024-05-08 11:12 | disposition home or self-care (01) ==
LOC: LAB 11:11
PROVIDERS: PCP Nurse Practitioner
DX: E78.2 Mixed hyperlipidemia (principal); E03.9 Hypothyroidism, unspecified
CPT/HCPCS: 36415; 80053; 80061; 84443

== ENCOUNTER 2024-06-09 13:27 | Outpatient (OUT) | payer MEDICARE, MEDICAID, SELFPAY ==
--- NOTE | 2024-06-09 13:32 | MM_ITS ---
Patient Name: LINDSEY AGEE MR#: [id number] : 1970 Exam Date: 06/09/2024 Ordering Doctor: Non-Staff Physician RADIOLOGY REPORT PROCEDURE: MM TOMOSYNTHESIS SCREENING BI COMPARISON: MAMMO POST BIOPSY LEFT, 06/05/2022. MM TOMOSYNTHESIS SCREENING BI, 06/04/2023. INDICATIONS: Screening Calculator Name NCI Breast Cancer Risk Assessment Tool 5 Year Breast Cancer Risk Not Reported. Lifetime Breast Cancer Risk Not Reported. Personal Breast Cancer No Personal Ovarian Cancer No Treatments None Family Cancers None LOCATION: [facility] BREAST COMPOSITION: The breasts are heterogeneously dense,which may obscure small masses. FINDINGS: DIAGNOSTIC CATEGORY 1--NEGATIVE. NO CHANGE FROM COMPARISON ASSESSMENT. Scattered benign-appearing calcifications are present. RIGHT BREAST: No significant suspicious finding. LEFT BREAST: No significant suspicious finding. RECOMMENDATIONS: ROUTINE MAMMOGRAM AND CLINICAL EVALUATION IN 12 MONTHS. PLEASE NOTE: A NORMAL MAMMOGRAM DOES NOT EXCLUDE THE POSSIBILITY OF BREAST CANCER. A CLINICALLY SUSPICIOUS PALPABLE LUMP SHOULD BE BIOPSIED. Dictated by: Bello Guerrero MD on 06/09/2024 at 14:28 Approved by: Bello Guerrero MD on 06/09/2024 at 14:28
== END 2024-06-09 13:28 | disposition home or self-care (01) ==
LOC: MAMMO 13:27
PROVIDERS: PCP Nurse Practitioner
DX: Z12.31 Encounter for screening mammogram for malignant neoplasm of breast (principal)
CPT/HCPCS: 77063; 77067

== ENCOUNTER 2024-10-13 10:42 | Outpatient (OUT) | payer MEDICARE, MEDICAID, SELFPAY ==
[2024-10-13 11:55] LABS: Estimated Average Glucose 140 mg/dL; Glycohemoglobin A1C 6.5 % (4.5-6.2)
[2024-10-13 12:40] LABS: Alanine Aminotransferase 24 U/L (14-59); Albumin Level 3.9 g/dL (3.4-5.0); Alkaline Phosphatase 93 U/L (46-116); Anion Gap 9.1; Aspartate Amino Transferase 15 U/L (15-37); BUN Creatinine Ratio 19.9; Bilirubin Total 0.3 mg/dL (0.2-1.0); Calcium 9.5 mg/dL (8.5-10.1); Carbon Dioxide 30.9 mmol/L (21.0-32.0); Chloride 112 mmol/L (98-107); Chol HDL Ratio 2.9; Cholesterol 284 mg/dL (<=200); Estimated GFR (African America 39 (>=60 mL/min/1.73m^2); Estimated GFR (Non-African Ame 32 (>=60 mL/min/1.73m^2); Glucose 118 mg/dL (74-106); HDL Cholesterol 98 mg/dL (40-60); Sodium 148 mmol/L (136-145); TSH W/ REFLEX FT4 2.236 uIU/mL (0.358-3.740); Total Protein 7.9 g/dL (6.4-8.2); Triglycerides 92 mg/dL (<=150); VLDL CHOLESTEROL 18.4 mg/dL
== END 2024-10-13 10:43 | disposition home or self-care (01) ==
LOC: LAB 10:44
PROVIDERS: PCP Nurse Practitioner; Visit Provider Internal Medicine
DX: E78.2 Mixed hyperlipidemia (principal); E03.9 Hypothyroidism, unspecified; R73.03 Prediabetes
CPT/HCPCS: 36415; 80053; 80061; 83036; 84443

== ENCOUNTER 2025-04-02 10:14 | Outpatient (OUT) | payer MEDICARE, MEDICAID, SELFPAY ==
--- OUTSIDE RECORDS SUMMARY | 2024-06-09 10:15 | XMS_ITS ---
Author Organization [facility] vices Address [address] [place] [id number] Care Team Providers Care Bottle Machine Operator Name Role Phone Alta Plummer Primary Care Provider REASON FOR VISIT HTN & Labs Social History Sex Assigned At : Social History Observation Description Sex Assigned At Female Encounters Encounter Location Date Provider Diagnosis Main [address] [place] [id number] 06/09/2024 Alta Plummer Plan Of Treatment Next Appt Details Provider Name:Alta Plummer, 09/21/2025 02:00:00 PM, [address] [place], [phone], Progress Notes * Divya POLODOB: (54 yo F)Acc No.[id number]:06/09/2024 Medical Note Patient: Reggie ABDULLAHIEDUARDO Divya Yoder :?Alta Elian, MDDOB:1970???Age:53 Y???Sex: FemaleDate:06/09/2024Phone:[phone]:Misbah ALCARAZ [id number] Subjective: * Chief Complaints: * 1 . HTN & Labs. * Medical History: Objective: * Vitals: Assessment: Plan: * Treatment: * Billing Information: * Visit Code: * Procedure Codes: * Electronic signature of Alta Plummer MD on 04/02/2025 at 10:21 AM ESTSign off status: Pending * Provider: David Plummer MD Date: 0 06/09/2024 Generated for Printing/Faxing/eTransmitting on:?04/02/2025 10:21 AM EST
--- OUTSIDE RECORDS SUMMARY | 2024-09-29 08:30 | XMS_ITS ---
Author Organization [facility] vices Address [address] [place] [phone] Care Team Providers Care Daycare Worker Name Role Phone Alta Plummer Primary Care Provider [phone] REASON FOR VISIT F/U HTN Social History Sex Assigned At : Social History Observation Description Sex Assigned At Female Encounters Encounter Location Date Provider Diagnosis Main [address] [place] [id number] 09/29/2024 Alta Plummer Plan Of Treatment Next Appt Details Provider Name:Alta Plummer, 09/21/2025 02:00:00 PM, [address] [place], [phone], Progress Notes * Divya POLO AnnDOB: (54 yo F)Acc No.[id number]:09/29/2024 Medical Note Patient: Reggie GOODROQUE Divya Yoder :?Alta Elian, MDDOB:1970???Age:54 Y???Sex: FemaleDate:09/29/2024Phone:[phone]:Misbah ALCARAZ [id number] Subjective: * Chief Complaints: * 1 . F/U HTN. * Medical History: Objective: * Vitals: Assessment: Plan: * Treatment: * Billing Information: * Visit Code: * Procedure Codes: * Electronic signature of Alta Plummer MD on 04/02/2025 at 10:21 AM ESTSign off status: Pending * Provider: David Plummer MD Date: 0 09/29/2024 Generated for Printing/Faxing/eTransmitting on:?04/02/2025 10:21 AM EST
--- OUTSIDE RECORDS SUMMARY | 2024-11-24 09:45 | XMS_ITS ---
Author Organization [facility] vices Address [address] [place] [id number] Care Team Providers Care Merchandising Assistant Name Role Phone Alta Plummer Primary Care Provider REASON FOR VISIT 4 week HTN Social History Sex Assigned At : Social History Observation Description Sex Assigned At Female Encounters Encounter Location Date Provider Diagnosis Main [address] [place] [id number] 11/24/2024 Alta Plummer Plan Of Treatment Next Appt Details Provider Name:Alta Plummer, 09/21/2025 02:00:00 PM, [address] [place], [phone], Progress Notes * Divya POLODOB: (54 yo F)Acc No.[id number]:11/24/2024 Medical Note Patient: Reggie GOODROQUE Divya Yoder :?Alta Elian, MDDOB:1970???Age:54 Y???Sex: FemaleDate:11/24/2024Phone:[phone]:Misbah ALCARAZ [id number] Subjective: * Chief Complaints: * 1 . 4 week HTN. * Medical History: Objective: * Vitals: Assessment: Plan: * Treatment: * Billing Information: * Visit Code: * Procedure Codes: * Electronic signature of Alta Plummer MD on 04/02/2025 at 10:21 AM ESTSign off status: Pending * Provider: David Plummer MD Date: 0 11/24/2024 Generated for Printing/Faxing/eTransmitting on:?04/02/2025 10:21 AM EST
--- OUTSIDE RECORDS SUMMARY | 2025-03-24 10:45 | XMS_ITS ---
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 Stress is when someone feels tense, nervous, anxious, or can't sleep at nightbecause their mind is troubledA little bitpatient entered dataIn the past year have you spent more than 2 nights in a row in a [place], long-term, halfway center, orjuvenile correctional facility?Nopatient entered dataAre you [...] Type II diabetes ese litus without complication (303361890) Diet-controlled diabetes mellitus (E11.9) ActiveconfirmedProblemDevelopmental delay (316250409)Developmental disability (F89)Activeconfirmed Vital Signs Temperature 99 degrees [...] Provider Diagnosis Main [address] [place], [place] [id number] 03/24/2025 Alta Plummer Primary hypertension I10 ; [...] I 10) Bp well controlled. Continue current gjrueffdzkz76/28/2025Mixed hyperlipidemia (ICD-10 - E78.2)Repeat labs today. Continue [...] LIPID PANEL WITH REFLEX TO DIRECT LDL MICROALBUMIN RANDOM SPEC 03/24/2025 COMPREHENSIVE METABOLIC PANEL WITH GFR 1 TSH WITH FT4 REFLEX 03/24/2025 Next Appt Details Follow Up: 6 Months, Reason: DM, thyroid, HTN and HLD Provider Name:Alta Plummer, 09/21/2025 02:00:00 PM, [address] [place], [id number], Progress Notes * CYNDIE Divya AnnDOB: (54 yo F)Acc No.[id number]:03/24/2025 Medical Note Patient: Dionne SNYDERcia Beba :?Alta Plummer MDDOB:1970???Age:54 Y???Sex: FemaleDate:03/24/2025Phone:[phone]:[address], [id number] In:03:50 PM EST Subjective: * Chief Complaints: [...] 2022 * Hospitalization/Major Diagno stic Procedure: k corieney issue 01/24/2024see surgical hx * Family History: F ather: . M other: alive. P aternal Grand Father: . P aternal Grand Mother: . M aternal Grand Father: . M aternal Grand Mother: .?Brother: , diagnosed with Heart Disease. her brother recently from a heart attack. 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 Stress is when someone feels tense, nervous, anxious, or can't sleep at night because their mind is troubled?A little bit patient entered data ?In the past year have you spent more than 2 nights in a row in a [place], long-term, halfway center, or juvenile correctional facility??No patient entered [...] ?PRAPARE Score:?7 * Medications: T akingFish Oil [place]-3 1000 MG Capsule 1 capsule Orally Once [...] and reconciled with the patientTaking Fish Oil [place]-3 1000 MG Capsule 1 capsule Orally Once [...] and reconciled with the patient * Allergies: S olga[Allergies Verified] Objective: * Vitals: T emp:99F, Wt:73.4lbs, [...] Modifiers: QW 3079F HTN DIAST BP = 80-206482D DM HG A1C < 42080W HTN SYST BP = 130 - 3440023B TOBACCO NON-USER * Preventive Medicine: ??Counseling:?Care goal follow-up plan:?Nutrition/Dietary Counseling provided Yes ?BMI management provided?Yes * Follow Up: 6 Months (Reason: DM, thyroid, HTN and HLD) * Billing Information: * Visit Code: 57085 Office Visit Est 30-39 minutes. * Procedure Codes: 71698 GLYCATED HEMOGLOBIN TEST. Modifiers: QW 3079F HTN DIAST BP = 80-89. 3044F DM HG A1C < 7. 3075F HTN SYST BP = 130 - 139. 1036F TOBACCO NON-USER. * ign off status: Completed true * Provider: David Plummer MD Date: 1 Generated for Printing/Faxing/eTransmitting on:?04/02/2025 10:21 AM EST History and Physical Notes * [...]
--- OUTSIDE RECORDS SUMMARY | 2025-04-02 10:21 | XMS_ITS | Clinical Summary ---
Author Organization [facility] Healthcare Address [address] [place] [address] Care Team Providers Care Process Consultant Name Role Phone Unavailable Primary Care Provider Unavailabl e Social History Tobacco UseTypesPacks/DayYears UsedDateSmoking Tobacco: Never Assessed CommentsUnknownSex and Gender InformationValueDate RecordedSex Assigned at Not on fileLegal DpnHnrdth11/15/2023 11:45 PM EDTGender IdentityNot on file Sexual OrientationNot on file Last Filed Vital Signs Vital SignReadingTime TakenCommentsBlood Lnyxhbtz941/8307/31/2022 12:00 PM EST Pulse--Temperature--Respiratory Rate--Oxygen Saturation--Inhaled Oxygen Concentration--Zjnawl12.2 kg (71 lb)07/31/2022 12:00 PM MWIBqgjtt210.1 cm (4' 4 )07/31/2022 12:00 PM ESTBody Mass Index18.46007/31/2022 12:00 PM EST Plan of Treatment Not on file Insurance
--- OUTSIDE RECORDS SUMMARY | 2025-04-02 10:21 | XMS_ITS | Patient Health Record ---
Author Organization [facility] Address [address] [place], [place] [address] Care Team Providers Care Retoucher Name Role Phone Alta Plummer Primary Care Provider Teja Hare Unavailable [phone] Natasha Kelley Unavailable [phone] Corina Arenas Unavailable [phone] Allergies Allergen (clinical drug ingredient) Drug/Non Drug Allergy documented on EMR Reaction Allergy Type Onset Date Status SeasonaleUnknownDrug AllergyActive Results Component Value Reference Range Notes POCT A1C Reviewed date:04/14/2024 04:50:34 PM Interpretation: Performing Lab: Notes/Report: Glycohemoglobin A1C Reviewed date:10/13/2024 12:33:21 PM Interpretation: Performing Lab: Notes/Report: , [facility] Glycohemoglobin A1C 6.5 4.5-6.2 % ADA RECOMMENDED LIMIT 4.0 - 6.0 ADA THERAPEUTIC TARGET < 7.0 ACTION SUGGESTED > 7.0 Estimated Average Glucose 140 Performing Lab:see noteML - [facility] LBComprehensive Metabolic Panel Reviewed date:10/13/2024 12:55:58 PM Interpretation: Performing Lab: Notes/Report: , [facility]FlxcdhqoIhehkq495160-114 mmol/LPotassium4.03.5-5.1 mmol/LChloride 45253-141 mmol/LCarbon Hekzhbd64.921.0-32.0 mmol/LAnion Gap9.0Oynlgkr08274-344 mg/dLBlood Urea Ugbzaoaa81.07.0-18.0 mg/dLCreatinine1.660.55-1.02 mg/dLEstimated GFR ( Rbzczlz58>=60 mL/min/1.73m 2Estimated GFR (Non- Ame32>=60 mL/min/1.73m 2BUN Creatinine Ratio19.8Puehsjk6.58.5-10.1 mg/dLBilirubin Total0.3 0.2-1.0 mg/dLAspartate Amino Lstugvnemrd6580-66 U/LAlanine Zuyewpjleamxfikd6847- 59 U/LAlkaline Bxoodwjtuzy6365-283 U/LTotal Protein7.96.4-8.2 g/dLAlbumin Level 3.93.4-5.0 g/dLGlobulin4.0Albumin Globulin Ratio1.0Performing Lab:see noteML - [facility] LBLipid Panel Reviewed date:10/13/2024 12:55:58 PM Interpretation: Performing Lab: Notes/Report: , [facility]zz[facility]nyzAow[facility]ntx[facility]gooag52<=150 mg/uXPdnfkazhhpr396<=200 mg/dLHDL Utuitzmwyrh3359-43 mg/dL > or =60 mg/dl - LOW CARDIOVASCULAR RISK <40 mg/dl - HIGH CARDIOVASCULAR RISK LDL Cholesterol Fannlwmmxe705.0 <100 mg/dl OPTIMAL 100-129 mg/dl NEAR OR ABOVE OPTIMAL 130-159 mg/dl BORDERLINE HIGH 160-189 mg/dl HIGH >190 mg/dl VERY HIGH VLDL UXVJQIVAPSP56.4Chol HDL Ratio2.9 3.3 - 4.4 LOW RISK 4.4 - 7.1 AVERAGE RISK 7.1 - 11.0 MODERATE RISK >11.0 HIGH RISK Performing Lab:see noteML - [facility] LBTSH W/ REFLEX FT4 Reviewed date:10/13/2024 12:55:58 PM Interpretation: Performing Lab: Notes/Report: [facility] ,TSH W/ REFLEX FT42.2360.358-3.740 uIU/mLPerforming Lab:see noteML - [facility] LBPOCT A1C Reviewed date:03/24/2025 04:02:42 PM Interpretation: Performing Lab: Notes/Report: Reason For Referral Reason PLease evaluate and treat accordingly EXT 17 and 32 partially impacted with decay. Eval and treat accordingly #29 PARL Diagnosis 1 Impacted tooth (K01. 1) Diagnosis 2 Tooth decay (K02.9) Referral Organization [facility] Referring Provider First Name Teja Referring Provider Last Name Ananya Referring Provider Speciality [facility] Referred Provider [facility], multineedle shirrer Referred Provider Specialty Oral Surgery General Notes Shonna Cervantes 03/2025 02:00:57 PM >Called and spoke with pt's guardian. She did not know she had to call and schedule. She was unable to take contact information down so she stated she will call back., Shonna Cervantes 12/23/2024 04:47:07 PM >Marking referral as addressed due to no follow up from pt after 1st attempt to contact. Clinical Notes Sonya Rodriguez RDH 07:00:32 PM >Hard copy given to the patient in operatory. Patient verbally understands referral process. Referral Priority Routine Medications Medication SIG (Take, Route, Frequency, Duration) [...] BY MOUTH EVERY DAY; Duration: 90ActiveFish Oil Bar[place]-3 1000 MG1 capsule Orally Once a day; Duration: 90 days11/27/2022ctive Immunizations Vaccine Route Administration Date Status Comme nts *Occaveubr-Szrzhjzpm-Wssrx te IM Intramuscular 03/05/2023 Administered *Tdap (Adacel)-PrivateIM Urilikefjritz65/03/2023dministeredInfluenza, seasonal, injectable, preservative free, 3 yrs and yxdkhHlxiyez63/13/2025Administered Social History Tobacco Use: Social History Observation Description Date Details (start date - stop date) Never Smoker NA - NA Sex Assigned At : Social History Observation Description Sex Assigned At Female Household Question Answer Notes Marital status: single Number of adults in household:4Number of children in household:0Tobacco Use/Smoking Question Answer Notes Tobacco use: nonsmoker patient enter ed data Sexual History Question Answer Notes Had sex in the past 12 months (vaginal, oral, or anal)? 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 Stress is when someone feels tense, nervous, anxious, or can't sleep at nightbecause their mind is troubledA little bitpatient entered dataIn the past year have you spent more than 2 nights in a row in a prison, senior care, residential center, orjuvenile correctional facility?Nopatient entered dataAre you a refugee?Nopatient entered dataWhat country are you from?[place] Statespatient entered dataDo you feel physically and emotionally safe where you currently live?Yespatient entered dataIn the past year, have you been afraid of your partner or ex-partner?I have not had a partner in the past yearpatient entered data PRAPARE Score:7Tobacco Control (Standard) Question Answer Notes Tobacco use: Nonsmoker Additional Findings: Tobacco non-userCurrent nonsmoker Problems Problem Type SNOMED Code ICD Code Onset Dates Problem Status W/U Status Risk Notes Problem Seasonal allergy (348790808) Seasonal all ergies (J30.2) ActiveconfirmedProblemDevelopmental delay (434806055)Developmental disability (F89)ActiveconfirmedProblemType II diabetes mellitus without complication (253650116)Diet-controlled diabetes mellitus (E11.9)ActiveconfirmedProblemMixed hyperlipidemia (968597673)Mixed hyperlipidemia (E78.2)Activeconfirmeddx for lab ProblemAge-related osteoporosis (016540930)Age-related osteoporosis without current pathological fracture (M81.0)ActiveconfirmedProblemType II diabetes mellitus without complication (192595169)Type 2 diabetes mellitus without complication, without long-term current use of insulin (E11.9)05/17/2022ctive confirmedProblemAcquired hypothyroidism (185955903)Acquired hypothyroidism (E03.9)Activeconfirmeddx for labProblemPrimary hypertension (44041329)Primary hypertension (I10)ActiveconfirmedProblemChronic kidney disease stage 3B (disorder) (237971871)Stage 3b chronic kidney disease (N18.32)Activeconfirmed ProblemElevated liver enzymes level (416395006)Elevated liver enzymes (R74.8) Problem resolvedconfirmed Vital Signs Heart Rate 84 /min 03/24/2025 Falguni Ray 03/24/2025 03:56:28 PM EDT > Temperature 99 degrees Fahrenheit 03/24/2025 Falguni Ray 03/24/2025 03:56:28 PM EDT > Respiratory Rate 18 /min 03/24/2025 Saul Ray 03/24/2025 03:56:28 PM EDT > Oximetry 98 % 03/24/2025 Falguni Ray 03/24/2025 03:56:28 PM EDT > Blood pressure diastolic 83 mm Hg 03/24/2025 Falguni Harrell 03/24/2025 03:56:28 PM EDT > Weight-kg 33.29 kg 03/24/2025 Falguni Ray 03/24/2025 03:56:28 PM EDT > Height 54 in 03/24/2025 Falguni Ray 03/24/2025 03:56:28 PM EDT > Blood pressure systolic 136 mm Hg 03/24/2025 Falguni Krishnamurthy 03/24/2025 03:56:28 PM EDT > Weight 73.4 lbs 03/24/2025 Falguni Ray 03/24/2025 03:56:28 PM EDT > BMI 17.7 kg/m2 03/24/2025 Falguni Ray 03/24/2025 03:56:28 PM EDT > Encounters Encounter Location Date Provider Diagnosis Main [address] [place], [place] [id number] 04/14/2024 Alta Elian Mixed hyperlipidemia E78.2 ; Prediabetes R73.03 ; Acquired hypothyroidism E03.9 and Primary hypertension I10 Main [address] [place], [place] [id number] 05/05/2024 Alta Elian Primary hypertension I10 and Acquired hypothyroidism E03.9 [facility] [address] [place], [place] [id number] 06/27/2024 Teja Hare Encounter for screen ing for dental disorders Z13.84 and Encounter for dental examination and cleaning with abnormal findings Z01.21 [facility] [address] [place], [place] [id number] 07/21/2024 Teja Hare Encounter for dental examination and cleaning without abnormal findings Z01.20 and Encounter for dental examination and cleaning with abnormal findings Z01.21 Main [address] [place], [place] [id number] 10/06/2024 Alta Elian Primary hypertension I10 ; Mixed hyperlipidemia E78.2 ; Acquired hypothyroidism E03.9 and Pre-diabetes R73.03 [facility] [address] [facility] [id number] 10/27/2024 Alta Elian Type 2 diabetes bob itus without complication, without long-term current use of insulin E11.9 ; Acquired hypothyroidism E03.9 ; Mixed hyperlipidemia E78.2 ; Primary hypertension I10 and Stage 3b chronic kidney disease N18.32 [facility] [address] [place], [place] [id number] 11/17/2024 Teja Hare Encounter for dental examination and cleaning with abnormal findings Z01.21 and Necrosis of pulp K04.1 Main [address] [place] [id number] 03/24/2025 Alta Elian Primary hypertension I10 ; Mixed hyperlipidemia E78.2 ; Acquired hypothyroidism E03.9 ; Diet-controlled diabetes mellitus E11.9 ; Developmental disability F89 ; BMI less than 19,adult Z68.1 ; Dietary counseling Z71.3 and Exercise counseling Z71.82 [facility] [address] [facility] [id number] 04/08/2024 Natasha UriasNeal Primary hypertension I10 Main [address] [place], [place] [id number] 04/11/2024 Corina Arenas [address] [place], [place] [id number]/2024Miami DcAswjUnko[address] [place], [place] [id number] CkghnMpya[address] [place] [id number] BmbywEaqo[address] [place] [id number] 08/26/2024Faith McNealPrimary hypertension I10 and Acquired hypothyroidism E03.9 [address] [place] [id number] MgzxlRocq[address] [facility] [id number] LhwrcEbut[address] [place], [place] [address]/23/2025Ramsha Elian Assessments Encounter Date Diagnosis (ICD Code) Assessment Notes Treatment Notes Treatment Clinical Notes Section Notes 04/08/2024 Primary hypertension (ICD-10 - I 10) 04/14/2024Mixed hyperlipidemia (ICD-10 - E78.2)Due for blood work04/14/2024 Prediabetes (ICD-10 - R73.03)A1c 6.0 today still in prediabetic range. Advised to continue to manage with diet and exercise.06/27/2024Encounter for screening for dental disorders (ICD-10 - Z13.84)07/21/2024Encounter for dental examination and cleaning without abnormal findings (ICD-10 - Z01.20)08/26/2024Primary hypertension (ICD-10 - I10)10/06/2024Mixed hyperlipidemia (ICD-10 - E78.2)dx for lab05/05/2024rimary hypertension (ICD-10 - I10) BP noted to be elevated. again today. Home reading reported in 130/80 one time but Since her bp is too high from last 2 visits also noted she was on lisinopril which was stopped due to her kidneys. Ithink she needs more blood pressure meds. I will increase her metoprolol to 50 mg twice daily. SI disucssed. Discussed reassuring vs non reassuring symptoms and when to call the office or go to ER. PVU Advised to check BP at home and keep a record of it to bring on next visit in 4 weeks. Discussed having diet low in salt and exercise. 10/06/2024Primary hypertension (ICD-10 - I10)Bp well controlled. Continue current knnfhdpzoel81/02/2025Type 2 diabetes mellitus without complication, without long-term current use of insulin (ICD-10 - E11.9)A1c 6.5 in diabetic range now. With her kidney function I will avoid metformin. discussed starting J ardiance but pt and her guardian (cousin who was present with her) decline starting a medication atthis point and want to see if it can be managed with diet alone. will f/u in 3 fkrotd065Acquired hypothyroidism (ICD-10 - E03.9)Stable. Advised to continue current dose of levothyroxine. Will repeat labs in 6 months.11/17/2024Encounter for dental examination and cleaning with abnormal findings (ICD-10 - Z01.21)03/24/2025Mixed hyperlipidemia (ICD-10 - E78.2)Repeat labs today. Continue statin and low fat diet.03/24/2025Primary hypertension (ICD-10 - I10)Bp well controlled. Continue current medications 5Acquired hypothyroidism (ICD-10 - E03.9)dx for lab4Acquired hypothyroidism (ICD-10 - E03.9)Due for labs. Advised to continue current dose of Levothyroxine and will f/u with blood work.11/17/2024Necrosis of pulp (ICD-10 - K04.1)10/27/2024Mixed hyperlipidemia (ICD-10 - E78.2) Recommend statin with elevated LDL and DM diagnosis. Starting Atorvastatin 40 mg daily I discussed that food choices impact the cholesterol level and gave information of food that will help bring the cholesterol level down. Pt was advised to start doing exercise - atleast for 30 min 5 days a week. I will repeat the lipid profile in 6 months 06/27/2024Encounter for dental examination and cleaning with abnormal findings (ICD-10 - Z01.21)5Acquired hypothyroidism (ICD-10 - E03.9)dx for lab 07/21/2024Encounter for dental examination and cleaning with abnormal findings (ICD-10 - Z01.21)5Acquired hypothyroidism (ICD-10 - E03.9)04/14/2024 Acquired hypothyroidism (ICD-10 - E03.9)due for labs4Primary hypertension (ICD-10 - I10) BP noted to be elevated with elevated heart rate. PT currently asymptomatic. Home readings are noted to be normal per pt. I will get EKG and wait for thyroid labs before doing any changes. Advised to check BP at home and keep a record of it to bring on next visit in 1- 2 weeks. Discussed having diet low in salt and exercise. 10/06/2024Pre-diabetes (ICD-10 - R73.03)dx for lab10/27/2024Primary hypertension (ICD-10 - I10) BP noted to be elevated. Reports home reaidngs are better in 130s Advised to check BP at home and keep a record of it to bring on next visit in 4 weeks. Discussed having diet low in salt and exercise. 03/24/2025Diet-controlled diabetes mellitus (ICD-10 - E11.9) A1c stable 6.4 today. Advise to continue to manage with diet and exercise. f/u in 6 month 03/24/2025Developmental disability (ICD-10 - F89)Pt is slow and hard for her to comprehend things per her cousin who always help her with her appointments. 10/27/2024Stage 3b chronic kidney disease (ICD-10 - N18.32)Managed by kidney specialist. Phorln3703/24/2025MI less than 19,adult (ICD-10 - Z68.1)03/24/2025 Dietary counseling (ICD-10 - Z71.3)03/24/2025Exercise counseling (ICD-10 - Z71.82)10/06/2024Other Student Attestation Verbal Consent: Patient gives consent to be seen by a medical student. Student Name: Pilar Carreno Attestation: As the teaching provider, I have personally performed or re-performed the history of presenting illness, physical exam and medical decision-making activities of the encounter and verified the Medical/[employer]/PA student's documentation. I have made pertinent changes as necessary to ensure accurate documentation. Plan Of Treatment Pending Test Test Name Order Date LIPID PANEL WITH REFLEX TO DIRECT LDL MICROALBUMIN RANDOM SPEC 03/24/2025 COMPREHENSIVE METABOLIC PANEL WITH GFR 1 TSH WITH FT4 REFLEX 03/24/2025 Next Appt Details Provider Name:Alta Plummer, 09/21/2025 02:00:00 PM, [address], [id number], Insurance Providers Payer Name Payer Address Payer Phone Subscriber Number Group Number Insured Name Patient Relationship to Insured Coverage Start Date Coverage End Date Medicare NGS PPS [address] [place], [place] [id number] Jessica Polo - patient is the [id number] 1994DMedicaid[address] [place], [place] [id number], AliciaSelf - patient is the [id number] 2024Medicaid [address] [place], [place] [id number], AliciaSelf - patient is the [id number] 2022 Medical (General) History Medical History History ICD Code HTN (hypertension) I10 Hyperlipemia E78.5 Osteoporosis M81.0 Hypothyroidism E03.9 Elevated liver enzymes (resolved 022) undefined Acute kidney injury N17.9 Surgical History Surgery Date(Month/Year) Breast Biopsy (L) 2021 breast surgery- remove cancer 2022 Hospitalization History Reason Date(Month/Year) kidney issue 01/24/2024 see surgical hx
--- OUTSIDE RECORDS SUMMARY | 2025-04-02 10:22 | XMS_ITS | Clinical Summary ---
Author Organization [employer] [facility] tem Address [facility] [id number] [address] [place] [address] Care Team Providers Care Certified Maintenance Welder Name Role Phone Natasha Kelley BATCHMAKER-CAR DISPATCHER Primary Care Provider [phone] Allergies No known active allergies Medications MedicationSigDispense QuantityRefillsLast FilledStart DateEnd DateStatus lisinopriL (PRINIVIL,ZESTRIL) 20 mg tablet Take 25 mg by mouth in the morning.Active levothyroxine (SYNTHROID, LEVOTHROID) 25 MCG tablet Take 1 tablet (25 mcg total) by mouth in the morning.Active amLODIPine (NORVASC) 10 mg tablet Take 1 tablet (10 mg total) by mouth in the morning.Active simvastatin (ZOCOR) 20 mg tablet Take 1 tablet (20 mg total) by mouth nightly.Active Social History Tobacco UseTypesPacks/DayYears UsedDateSmoking Tobacco: Never AssessedChildcare AnswerDate GnivcdjoMgpjhxmyhScyjake82/12/2019EmploymentAnswerDate Recorded HwacdiyyrwUfiownc04/12/2019Hunger ScreeningAnswerDate RecordedWithin the past 12 months we worried whether our food would run out before we got money to buy more.Never True01/20/2024Within the past 12 months the food we bought just didn't last and we didn't have money to get more.Never True01/20/2024 CommentsNoSex and Gender InformationValueDate RecordedSex Assigned at BirthNot on fileLegal TrrMntwbm78/06/2015 11:46 AM EDTGender IdentityNot on fileSexual OrientationNot on file Last Filed Vital Signs Vital SignReadingTime TakenCommentsBlood Lgkqdaiq920/5508/ 5:07 PM EDT Swzam40544/ 5:07 PM VCMZagwkbrjxac83.6 ??C (97.9 ??F)01/20/2024 12:59 PM EDTRespiratory Hzai835501/20/2024 2:38 PM EDTOxygen Blbwlapsrr297%01/20/2024 5:07 PM EDTInhaled Oxygen Concentration--Aesyvk82.3 kg (80 lb)01/20/2024 12:59 PM EDT Ryhrdz097.8 cm (4' 9 )01/20/2024 12:59 PM EDTBody Mass Index17.31001/20/2024 12:59 PM EDT Plan of Treatment Health MaintenanceDue DateLast DoneCommentsDepression Mfxhqrgwv22/29/1985Tobacco Hyqtfriub19/29/1985Pap Smear1993Zoster (Shingles) Vaccine (1 of 2) 2022dult BMI Mpdswudst95/OVID-19 Vaccine ( - season)505/12/2020, 09/11/2020Influenza Cybregr820/01/2023, 2DTaP,Tdap and Td Vaccines (3 - Td or Tdap)/07/2022, 08/03/2014 Medical Devices Not on file Insurance Care Teams Team MemberRelationshipSpecialtyStart DateEnd Date Natasha Kelley, KARINA-CAR DISPATCHER [address] [place] [address] [place] [address] [facility] - [facility]
--- OUTSIDE RECORDS SUMMARY | 2025-04-02 10:27 | XMS_ITS | CCD ---
Author Organization [facility] CliniSyva Care Team Providers Care Machine Engraver Name Role Phone Nini Pelletier Unavailable Mildred [...] Reaves Primary Care Provider Rigo MALIK[facility] P rovider RADHA SIERRA Primary Care Unavailabl e Rigo MALIK, [facility] P rovider ELONARDO LENZ Primary Care Physician Shammo PHYSICIAN OFFICE SECRETARY, Leonardo(Historical) Primary Care Provid er Unavailable Janie Toscano Unavailable SHAMMO, LEONRADO Primary Care Unavailable NILL, Christopher R Attending [...] Christopher R Attending Unavailable Rigo MALIK, [facility] P rovider KADEN GOLDEN [...] Corazon Krishna Unavailable LYNN STARKEY Attending Unavailable [facility] Unavailable LYNN STARKEY Attending Unavailable LYNN STARKEY Referring Unavailable [facility] Unavailable LYNN STARKEY Referring Unavailable [facility] Unavailable DAVID ASKEW Consulting Unavailable MACKENZIE WESTON Admitting Unavailable DAMON JUAREZ Attending Unavailable [facility] Unavailable NANCY PENA Consulting Unavailable Allergies Allergy ClassificationReported Allergen(s)Allergy TypeDate of OnsetReaction(s) Facility (1 source)No Known Medication Allergies; Translations: [No Known Medication Allergies]Propensity to adverse reactions (disorder)[facility] Repository Medications Current Medications MedicationDrug Class(es)DatesSig (Normalized)Sig (Original)alendronic acid 35 mg oral tablet (5 sources)BisphosphonateStart: 53-33-9570ecsc 1 tablet by mouth every week alendronate 35 mg Tab 35 mg = 1 tab(s), Oral, qWeek, Refills(s) 0 Start Date: 06/20/22 Status: Orderedtake 1 tablet by mouth once dailyAlendronate Sodium 35 MG 1 tablet 30 minutes before the first food, beverage or medicine of the daywith plain water Orally ActiveComment on above:TAKE 1 TAB BY MOUTH ONCE A WEEK 30 MINS BEFORE FIRST FOOD/BEVERAGE/MEDS OF THE DAY WITH PLAIN WATERamLODIPine 10 mg oral tablet (20 sources)Dihydropyridine Calcium Channel BlockerStart: 84-83-3016xqkw 10 mg by mouth once dailyAmlodipine Active 10 MG PO Daily November 14, 2023 12:00am Start: 44-28-0197tyfk 1 tablet by mouth once dailyamLODIPine (NORVASC) 10 mg tablet Take 10 mg by mouth once daily. 0 06/20/2022 ActiveStart: 04-30-2020 End: 71-87-4117ftvr 1 tablet by mouth once dailyamLODIPine 10 mg Tab 10 mg = 1 tab(s), Oral, Daily, Refills(s) 0 Start Date: 03/01/22 Status: OrderedStart: 06-07-2018 End: 46-22-2870bnnx 1 tablet by mouth once dailyamLODIPine (NORVASC) 10 MG tablet Indications: Hypertension, benign Take 1 (one) tablet (10 mg total) by mouth daily . 30 tablet 1 04/04/2019 ActiveStart: 24-25-7063snqb 1 tablet by mouth once dailyamLODIPine (NORVASC) 10 MG tablet Indications: Hypertension, benign Take 1 (one) tablet (10 mg total) by mouth daily. 90 tablet 1 09/26/2017 ActiveStart: 08-28-2017 End: 04-66-5999bntp 1 tablet by mouth once dailyamLODIPine (NORVASC) 10 MG tablet Indications: Hypertension, benign Take 1 (one) tablet (10 mg total) by mouth daily. 30 tablet 1 08/28/2017 09/26/2017 DiscontinuedStart: 01-15-2017 End: 48-66-7851unhs 1 tablet by mouth once dailyamLODIPine (NORVASC) 5 MG tablet Indications: Hypertension, benign Take 1 (one) tablet (5 mg total)by mouth daily. 30 tablet 1 07/31/2017 08/28/2017 DiscontinuedComment on above:Take 10 mg by mouth once daily.cetirizine hydrochloride 10 mg oral tablet (2 sources)Histamine-1 Receptor AntagonistStart: 59-10-6269Fxaukgrzpm Active 10 MG PO November 14, 2023 12:00amOmega 1-Oyf-Iif-Fish Oil (2 sources)Start: 29-60-7207Epwbc 7-Enm-Zys-Fish Oil Active CAP PO November 14, 2023 12:00amsimvastatin 20 mg oral tablet (13 sources)HMG-CoA Reductase InhibitorStart: 04-30-2020 End: 31-15-6344imef 1 tablet by mouth once dailysimvastatin (ZOCOR) 20 MG tablet Indications: Hyperlipidemia, unspecified hyperlipidemia type Take 1 (one) tablet (20 mg total) by mouth daily . 90 tablet 1 09/22/2021 03/21/2022 ActiveStart: 06-07-2018 End: 84-94-0944kkso 1 tablet by mouth once dailysimvastatin (ZOCOR) 20 MG tablet Indications: Hyperlipidemia, unspecified hyperlipidemia type Take 1 (one) tablet (20 mg total) by mouth daily . 30 tablet 1 04/04/2019 ActiveStart: 05-03-2016 End: 06-77-7233kkdt 1 tablet by mouth once dailysimvastatin (ZOCOR) 20 MG tablet Indications: Hyperlipidemia, unspecified hyperlipidemia type Take 1 (one) tablet (20 mg total) by mouth daily. 90 tablet 1 07/31/2017 Activelevothyroxine sodium 0.025 mg oral tablet (20 sources)l-ThyroxineStart: 20-62-3779imkw 1 tablet by mouth once daily levothyroxine 25 mcg (0.025 mg) Tab 25 mcg = 1 tab(s), Oral, Daily, Refills(s) 0 Start Date: 03/01/22 Status: OrderedStart: 10-01-2019 End: 48-31-2767bbdz 1 tablet by mouth once daily in the morninglevothyroxine (SYNTHROID, LEVOTHROID) 25 MCG tablet Indications: Acquired hypothyroidism TAKE 1 (ONE) TABLET (25 MCG TOTAL) BY MOUTH EVERY MORNING . 90 tablet 1 03/03/2022 08/30/2022 ActiveStart: 06-07-2018 End: 90-89-3200pgtw 1 tablet by mouth once daily in the morninglevothyroxine (Synthroid) 25 MCG tablet Indications: Acquired hypothyroidism Take 1 (one) tablet (25 mcg total) by mouth every morning . 30 tablet 1 04/04/2019 Active Start: 92-87-4548tuvl 1 tablet by mouth once daily in the morninglevothyroxine (SYNTHROID) 25 MCG tablet Indications: Acquired hypothyroidism Take 1 (one) tablet (25 mcg total) by mouth every morning. 90 tablet 1 09/26/2017 Active Start: 05-03-2016 End: 92-31-9801esji 1 tablet by mouth once daily in the morninglevothyroxine (SYNTHROID) 25 MCG tablet Indications: Acquired hypothyroidism Take 1 (one) tablet (25 mcg total) by mouth every morning. 90 tablet 1 08/14/2017 09/26/2017 Discontinued Completed/Discontinued Medications MedicationDrug Class(es)DatesSig (Normalized)Sig (Original)blood pressure test kit-small Kit (6 sources)Start: 07-31-2017 End: 51-14-7505dqsnk pressure test kit-small Kit Indications: Hypertension, benign 1 kit by Miscellaneous route daily. 1 each 0 07/31/2017 04/04/2019 DiscontinuedStart: 62-85-1782idpvg pressure test kit-small Kit Indications: Hypertension, benign 1 kit by Miscellaneous route daily. 1 each 0 07/31/2017 ActivecloNIDine hydrochloride 0.1 mg oral tablet (3 sources)Central alpha-2 Adrenergic AgonistStart: 07-31-2017 End: 51-21-2185rkrNYMujb HCl (CATAPRES) tablet 0.2 mghydroCHLOROthiazide 25 mg / lisinopril 20 mg oral tablet (20 sources)Thiazide Diuretic, Angiotensin Converting Enzyme InhibitorStart: 11-14-2023 End: 43-45-1337wwgh 1 tablet by mouth once dailyLisinopril-Hydrochlorothiazide Discontinued 1 TAB PO Daily November 14, 2023 12:00am February 26, 2024 4:08pm Start: 12-52-0783vmhe 1 tablet by mouth once dailylisinopril-hydroCHLOROthiazide (PRINZIDE, ZESTORETIC) 20-25 mg per tablet Take 1 tablet by mouth once daily. 0 07/03/2022 ActiveStart: 04-30-2020 End: 41-17-0336ucft 1 tablet by mouth once dailyhydrochlorothiazide-lisinopril 25 mg-20 mg Tab 1 tab(s), Oral, Daily, Refill(s) 0 Start Date: 03/01/22 Status: OrderedStart: 08-14-2017 End: 72-01-1992acfy 1 tablet by mouth once dailylisinopril-hydrochlorothiazide (PRINZIDE,ZESTORETIC) 20-25 mg per tablet Indications: Hypertension,benign Take 1 (one) tablet by mouth daily . 30 tablet 0 06/07/2018 04/04/2019 Discontinued (Reorder)Comment on above:Take 1 tablet by mouth once daily.lisinopril 10 mg oral tablet (4 sources)Angiotensin Converting Enzyme InhibitorStart: 06-07-2018 End: 86-86-5623hwwj 1 tablet by mouth once dailylisinopril (PRINIVIL,ZESTRIL) 10 MG tablet Indications: Hypertension, benign Take 1 (one) tablet (10 mg total) by mouth daily . 30 tablet 3 06/07/2018 04/04/2019 DiscontinuedStart: 07-31-2017 End: 66-78-5462dvxx 2 tablets by mouth once daily, then take 1 tablet by mouth lisinopril (PRINIVIL,ZESTRIL) 10 MG tablet Indications: Hypertension, benign Take 2 (two) tablets (20 mg total) by mouth daily. 60 tablet 1 07/31/2017 08/14/2017 Discontinuedmagnesium oxide 400 mg oral tablet (2 sources)Start: 11-14-2023 End: 59-89-2638jixc 400 mg by mouth once dailyMagnesium Oxide Discontinued 400 MG PO Daily November 14, 2023 12:00am February 26, 2024 4:08pmMetoprolol (2 sources)beta-Adrenergic BlockerStart: 11-14-2023 End: 49-02-4336fgnl 12.5 mg by mouth twice dailyMetoprolol Tartrate Discontinued 12.5 MG PO Twice daily November 14, 2023 12:00am February 26, 2024 4:09pmStart: 17-40-7650rsjq 12.5 mg by mouth twice dailyMetoprolol Tartrate Active 12.5 MG PO Twice daily November 14, 2023 12:00ammicroencapsulated potassium chloride 20 meq extended release oral tablet (17 sources)Start: 62-36-3963qbze 1 tablet by mouth once daily at mealtimeKLOR- CON M20 20 mEq tablet TAKE 1 TABLET BY MOUTH EVERY DAY WITH FOOD FOR 90 DAYS 0 07/18/2022 ActiveStart: 60-95-4512bxra 1 tablet by mouth once dailyPotassium Chloride (Ddg-Zqpm-Bei M20) 20 mEq oral tablet, extended release 20 mEq = 1 tab(s), Oral,Daily, Refills(s) 0 Start Date: 03/01/22 Status: OrderedStart: 04-30-2020 End: 85-86-8877wvvy 1 tablet by mouth once dailypotassium chloride SA (K-DUR,KLOR-CON) 20 MEQ tablet Indications: Hypertension, benign Take 1 (one) tablet (20 mEq total) by mouth daily . 90 tablet 1 09/22/2021 03/21/2022 Active Start: 62-83-9498xrxy 1 tablet by mouth once dailypotassium chloride SA (K-DUR,KLOR-CON) 20 MEQ tablet Indications: Hypopotassemia Take 1 (one) tablet (20 mEq total) by mouth daily To supplement potassium . 30 tablet 3 06/07/2018 ActiveStart: 05-03-2016 End: 44-61-5057ljmi 1 tablet by mouth once dailypotassium chloride SA (K-DUR,KLOR-CON) 20 MEQ tablet Indications: Hypopotassemia Take 1 (one) tablet (20 mEq total) by mouth daily To supplement potassium. 90 tablet 1 08/14/2017 ActiveComment on above:TAKE 1 TABLET BY MOUTH EVERY DAY WITH FOOD FOR 90 DAYS Potassium Chloride (Klor-Con M20) 20 mEq tablet,ER particles/crystals (2 sources)Start: 11-14-2023 End: 16-84-1062Wfhjinibt Chloride (Klor-Con M20) 20 mEq tablet,ER particles/crystals Discontinued 20 MEQ PO Once November 14, 2023 12:00am November 14, 2023 10:36amspironolactone 25 mg oral tablet (3 sources)Aldosterone AntagonistStart: 11-16-2023 End: 51-78-3218lrtn 1 tablet by mouth once dailySpironolactone Discontinued 0 .ROUTE .COMPLEX 90 November 16, 2023 10:51am February 26, 2024 4:08pm TAKE 1 TABLET BY MOUTH EVERY DAY FOR 90 DAYSStart: 11-14-2023 End: 45-94-9765phbq 25 mg by mouth once dailySpironolactone Discontinued 25 MG PO Daily November 14, 2023 12:00am November 16, 2023 10:52am Problems Active Problems Problem ClassificationProblemDateDocumented DateEpisodic/ChronicAcute and unspecified renal failure (4 sources)Acute kidney failure, unspecified; Translations: [Acute renal failure syndrome]Onset: 979706-02-1271AjyoyyuyIpqfmw of breast (7 sources)Intraductal carcinoma in situ of left breast; Translations: [Intraductal carcinoma in situ of breast]Onset: 57-77-6367SzebifuYgishii dysrhythmias (6 sources)Sinus tachycardia; Translations: [Sinus tachycardia]Onset: 08-12-2015 22-71-2608IycusxyObrzssq dysrhythmias (9 sources)Sinus tachycardia; Translations: [Tachycardia, unspecified]Onset: 60-41-4433UpaqvmqbRhuwjzp kidney disease (6 sources)Chronic kidney disease stage 3B ; Translations: [Chronic kidney disease, stage 3b]52-69-3232FbyorwoAmfiimvpdi associated with dizziness or vertigo (1 source)Dizziness and giddiness; Translations: [Dizziness and giddiness]Onset: 06-92-3624VcgukhjoWwtwheuaxukku disorders (11 sources)Intellectual functioning disability ; Translations: [Mental retardation]Onset: 178531-40-7074JrmqftzGnsyqaee mellitus without complication (4 sources)Type 2 diabetes mellitus without complications; Translations: [TYPE 2 DM WITHOUT COMPLICATIONS]Onset: 34-96-4315IafljcqAkonowgh mellitus without complication (7 sources)Prediabetes; Translations: [Prediabetes]Onset: 96-26-6737Uafxptme Disorders of lipid metabolism (20 sources)Hyperlipidemia; Translations: [Hyperlipidemia, unspecified]Onset: 196083-58-4466AirvmawNunbgoyhc hypertension (20 sources)Benign hypertension; Translations: [Essential (primary) hypertension]Onset: 158476-50-3961VwehcneLdmae and electrolyte disorders (19 sources)Hypokalemia; Translations: [Hypokalemia]Onset: 10-15-2012 Resolved: 069295-57-8756OivblsvxVbvxomnutrph with complications and secondary hypertension (7 sources)Hypertensive renal disease; Translations: [Hypertensive chronic kidney disease with stage 1 throughstage 4 chronic kidney disease, or unspecified chronic kidney disease]ChronicNonmalignant breast conditions (5 sources)Atypical ductal hyperplasia of breast; Translations: [Unspecified benign mammary dysplasia of left breast]Onset: 39-77-7589WcuvezdwZlvnddyuasb deficiencies (7 sources)Vitamin D deficiency; Translations: [Vitamin D deficiency, unspecified]ChronicOsteoporosis (1 source)Age-related osteoporosis without current pathological fracture; Translations: [AGE-REL OSTEOPOR W/OCURR PATH FX]Onset: 07-06-8992LesiscrDajdb and unspecified benign neoplasm (2 sources)Benign tumor of breast; Translations: [Benign neoplasm of left breast]Onset: 18-17-4170EpumwgxfMunre and unspecified benign neoplasm (2 sources)Fibroadenoma of -22-2868BofnoxtqRikwu and unspecified benign neoplasm (4 sources)Benign neoplasm of left breast; Translations: [BENIGN NEOPLASM OF LEFT BREAST]Onset: 76-87-3306YdsmkvqvEgdjq congenital anomalies (4 sources)Short stature disorder; Translations: [Other specified congenital malformation syndromes, not elsewhere classified]Onset: ChronicOther ear and sense organ disorders (11 sources)Hearing loss; Translations: [Unspecified hearing loss, unspecified ear]Onset: 669540-60-4846DxmnbgyQfmpv ear and sense organ disorders (1 source)Bilateral hearing loss; Translations: [Bilateral hearing loss, unspecified hearing loss type]ChronicOther liver diseases (5 sources)Abnormal levels of other serum enzymes; Translations: [ABNORMAL LEVELS OTHER SERUM ENZYMES]Onset: 27-60-5761UhizzfdaMkjwh nutritional; endocrine; and metabolic disorders (2 sources)Hypomagnesemia; Translations: [Hypomagnesemia]18-26-4365SdagwukMhnta nutritional; endocrine; and metabolic disorders (2 sources)Hypomagnesemia; Translations: [Disorders of magnesium metabolism] 82-76-6897CjajkljHuind nutritional; endocrine; and metabolic disorders (2 sources)Body mass index less than 9079-68-8178PpmlilwmUoyqm nutritional; endocrine; and metabolic disorders (1 source)Underweight; Translations: [UNDERWEIGHT]Onset: 20-71-0192YiiqftpiEusnh nutritional; endocrine; and metabolic disorders (1 source)Body mass index (BMI) 19.9 or less, adult; Translations: [BODY MASS INDEX 19.9 OR LESS ADULT]Onset: 88-49-4738OhjxgjuaWzjoo screening for suspected conditions (not mental disorders or infectious disease) (20 sources)Patient encounter status; Translations: [Encounter for other screening for malignant neoplasm of breast]Onset: 27-15-0527LdvwhvpuIgrjoow (1 source)Syncope and collapse; Translations: [Syncope and collapse]Onset: 70-32-8440AevsslqlHucyquh disorders (20 sources)Hypothyroidism; Translations: [Acquired hypothyroidism]Onset: 324525-87-0137FjcivboXrqdpreyoizc (10 sources)Patient encounter status; Translations: [Routine general medical examination at a health care facility]Onset: 06-15-2011 Resolved: 908231-12-5101Ttmlidtfzxyr (3 sources)Intellectual disability; Translations: [Intellectual disability] Onset: 783661-10-8573Tgukptvjbmcn (1 source)CONTACT W/AND (SUSP) EXPOS COVID-19; Translations: [CONTACT W/AND (SUSP) EXPOS COVID-19]Onset: 46-27-6386Rnsyvucbsjyq (1 source)Medical ScreeningOnset: 12-86-1362Zivnxlvwcfrs (1 source)EMSOnset: 01-20-2024 Past or Other Problems Problem ClassificationProblemDateDocumented DateEpisodic/ChronicChronic kidney disease (1 source)Chronic kidney diseaseGenitourinary symptoms and ill-defined conditions (2 sources)Disorder of the urinary system; Translations: [Disorder of kidney and ureter]Onset: 822296-63-0036IwemgyoaPitckexgyuwzc and screening for infectious disease (1 source)Encounter for screening for human papillomavirus (HPV); Translations: [ENC SCREENING HUMAN PAPILLOMAVIRUS]Onset: 03-29-0163HmgakyvqSnxcb diseases of kidney and ureters (8 sources)Disorder of kidney and/or ureter; Translations: [Disorder of kidney and ureter, unspecified]Onset: 2012 Resolved: 887944-93-9419OvbvzgiyJzdpd nutritional; endocrine; and metabolic disorders (16 sources)Underweight; Translations: [Short stature disorder]Onset: 04-27-2014 92-45-6674XwmbkiwnJqgat nutritional; endocrine; and metabolic disorders (3 sources)Short stature disorder; Translations: [Short stature associated with congenital syndrome]Onset: 777158-57-9001VjssvpmnZgjvf nutritional; endocrine; and metabolic disorders (1 source)Unexplained weight loss ; Translations: [Unexplained weight loss] EpisodicResidual codes; unclassified (1 source)FH: Diabetes mellitus; Translations: [Family history of diabetes mellitus]EpisodicResidual codes; unclassified (1 source)Asymptomatic menopausal state; Translations: [ASYMPTOMATIC MENOPAUSAL STATE]Onset: 99-04-7139Xqptynaz Results Test NameValueInterpretationReference RangeFacilityBasic Metab w/rfx MGon 84-21-9847Oqxrb gap [Moles/Vol]9 mmol/LNormal9-16[facility] CenterComment on above:Performed By: #### CRP, PE, C4, GLYHGB, CDP, IMMS, MARCELA, C3, CK, ANAX, URI, ANCACP, VD25, CP #### [address] [id number] Clothing Manager: ARNOLDO Mccainalcium [Mass/Vol]8.3 mg/dLLow8.6-10.4[facility] CenterComment on above:Performed By: #### CRP, PE, C4, GLYHGB, CDP, IMMS, MARCELA, C3, CK, ANAX, URI, ANCACP, VD25, CP #### [address] [id number] Clothing Manager: ARNOLDO Mccainhloride [Moles/Vol]110 mmol/GHyec30-784HjcxgMetrohealth Main Campus Medical CenterComment on above:Performed By: #### CRP, PE, C4, GLYHGB, CDP, IMMS, MARCELA, C3, CK, ANAX, URI, ANCACP, VD25, CP #### [place] [id number] Clothing Manager: ARNOLDO MccainO2 [Moles/Vol]21 mmol/LKprxxl72-97XqnwcMetrohealth Main Campus Medical CenterComment on above:Performed By: #### CRP, PE, C4, GLYHGB, CDP, IMMS, MARCELA, C3, CK, ANAX, URI, ANCACP, VD25, CP #### [address] [id number] Clothing Manager: ARNOLDO Mccainreatinine [Mass/Vol]1.4 mg/dLHigh0.50-0.90[facility] CenterComment on above:Performed By: #### CRP, PE, C4, GLYHGB, CDP, IMMS, MARCELA, C3, CK, ANAX, URI, ANCACP, VD25, CP #### [address] [id number] Clothing Manager: Lawrence Madoff, MDGFR/1.73 sq M.predicted among non-blacks MDRD (S/P/Bld) [Vol rate/Area]44 mL/min/{1.73_m2}Low>60[facility] CenterComment on above:Result Comment: These results are not intended for [...] or following therapy that affects renal tubular secretion.Performed By: #### CRP, PE, C4, GLYHGB, CDP, IMMS, MARCELA, C3, CK, ANAX, URI, ANCACP, VD25, CP #### [place] [id number] Clothing Manager: Lawrence Goff MDGlucose [Mass/Vol]145 mg/mLIzvz37-55GcsirSan Luis Rey HospitalComment on above:Performed By: #### CRP, PE, C4, GLYHGB, CDP, IMMS, MARCELA, C3, CK, ANAX, URI, ANCACP, VD25, CP #### [facility] [address] [place], [place] [id number] Clothing Manager: MICHEL Mccainotassium [Moles/Vol]4.6 mmol/LNormal3.7-5.3 [facility] CenterComment on above:Result Comment: SPECIMEN SLIGHTLY HEMOLYZED, RESULTS MAY BE ADVERSELY AFFECTED.Performed By: #### CRP, PE, C4, GLYHGB, CDP, IMMS, MARCELA, C3, CK, ANAX, URI, ANCACP, VD25, CP #### [place] [id number] Clothing Manager: SARA Mccainodium [Moles/Vol]140 mmol/GQyrase096-012KyfdmMetrohealth Main Campus Medical CenterComment on above:Performed By: #### CRP, PE, C4, GLYHGB, CDP, IMMS, MARCELA, C3, CK, ANAX, URI, ANCACP, VD25, CP #### [address] [id number] Clothing Manager: Lawrence Goff MDUrea nitrogen [Mass/Vol]26 mg/dLHigh6-20[facility] CenterComment on above:Performed By: #### CRP, PE, C4, GLYHGB, CDP, IMMS, MARCELA, C3, CK, ANAX, URI, ANCACP, VD25, CP #### [address] [phone] Clothing Manager: Adelia Mccain Metab w/rfx MGon 91-72-3099Uzjsk gap [Moles/Vol]7 mmol/LLow9-16[facility] CenterComment on above: Performed By: #### CRP, PE, C4, GLYHGB, CDP, IMMS, MARCELA, C3, CK, ANAX, URI, ANCACP, VD25, CP #### [address] [phone] Clothing Manager: ARNOLDO Mccainalcium [Mass/Vol]7.8 mg/dLLow8.6-10.4[facility] CenterComment on above:Performed By: #### CRP, PE, C4, GLYHGB, CDP, IMMS, MARCELA, C3, CK, ANAX, URI, ANCACP, VD25, CP #### [address] [id number] Clothing Manager: ARNOLDO Mccainhloride [Moles/Vol]113 mmol/UEfvt31-685OvowgMetrohealth Main Campus Medical CenterComment on above:Performed By: #### CRP, PE, C4, GLYHGB, CDP, IMMS, MARCELA, C3, CK, ANAX, URI, ANCACP, VD25, CP #### [address] [id number] Clothing Manager: ARNOLDO MccainO2 [Moles/Vol]25 mmol/VCetobc26-10EhpqoMetrohealth Main Campus Medical CenterComment on above:Performed By: #### CRP, PE, C4, GLYHGB, CDP, IMMS, MARCELA, C3, CK, ANAX, URI, ANCACP, VD25, CP #### [address] [phone] Clothing Manager: ARNOLDO Mccainreatinine [Mass/Vol]1.8 mg/dLHigh0.50-0.90[facility] CenterComment on above:Performed By: #### CRP, PE, C4, GLYHGB, CDP, IMMS, MARCELA, C3, CK, ANAX, URI, ANCACP, VD25, CP #### [address] [id number] Clothing Manager: Lawrence Goff MDGFR/1.73 sq M.predicted among non-blacks MDRD (S/P/Bld) [Vol rate/Area]34 mL/min/{1.73_m2}Low>60[facility] CenterComment on above:Result Comment: These results are not intended for [...] or following therapy that affects renal tubular secretion.Performed By: #### CRP, PE, C4, GLYHGB, CDP, IMMS, MARCELA, C3, CK, ANAX, URI, ANCACP, VD25, CP #### [place] [id number] Clothing Manager: Lawrence Goff MDGlucose [Mass/Vol]146 mg/aBWzji98-20XnpxkSan Luis Rey HospitalComment on above:Performed By: #### CRP, PE, C4, GLYHGB, CDP, IMMS, MARCELA, C3, CK, ANAX, URI, ANCACP, VD25, CP #### [address] [id number] Clothing Manager: MICHEL Mccainotassium [Moles/Vol]5.3 mmol/LNormal3.7-5.3 [facility] CenterComment on above:Performed By: #### CRP, PE, C4, GLYHGB, CDP, IMMS, MARCELA, C3, CK, ANAX, URI, ANCACP, VD25, CP #### [address] [phone] Clothing Manager: SARA Mccainodium [Moles/Vol]145 mmol/NAhrlvr544-518IlnkeMetrohealth Main Campus Medical CenterComment on above:Performed By: #### CRP, PE, C4, GLYHGB, CDP, IMMS, MARCELA, C3, CK, ANAX, URI, ANCACP, VD25, CP #### [place] [address] Clothing Manager: Lawrence Goff MDUrea nitrogen [Mass/Vol]36 mg/dLHigh6-20[facility] CenterComment on above:Performed By: #### CRP, PE, C4, GLYHGB, CDP, IMMS, MARCELA, C3, CK, ANAX, URI, ANCACP, VD25, CP #### [place] [address] Clothing Manager: Lawrence Goff MDAnion gap [Moles/Vol]8 mmol/LLow9-16[facility] CenterComment on above:Performed By: #### CRP, PE, C4, GLYHGB, CDP, IMMS, MARCELA, C3, CK, ANAX, URI, ANCACP, VD25, CP #### [address] [id number] Clothing Manager: ARNOLDO Mccainalcium [Mass/Vol]7.8 mg/dLLow8.6-10.4[facility] CenterComment on above:Performed By: #### CRP, PE, C4, GLYHGB, CDP, IMMS, MARCELA, C3, CK, ANAX, URI, ANCACP, VD25, CP #### [facility] [address] [place] [id number] Clothing Manager: ARNOLDO Mccainhloride [Moles/Vol]112 mmol/MVgez61-967BmlraMetrohealth Main Campus Medical CenterComment on above:Performed By: #### CRP, PE, C4, GLYHGB, CDP, IMMS, MARCELA, C3, CK, ANAX, URI, ANCACP, VD25, CP #### [place] [id number] Clothing Manager: Lawrence Goff MDCO2 [Moles/Vol]25 mmol/AVefaeh51-15WlgpzMetrohealth Main Campus Medical CenterComment on above:Performed By: #### CRP, PE, C4, GLYHGB, CDP, IMMS, MARCELA, C3, CK, ANAX, URI, ANCACP, VD25, CP #### [place] [id number] Clothing Manager: ARNOLDO Mccainreatinine [Mass/Vol]1.8 mg/dLHigh0.50-0.90[facility] CenterComment on above:Performed By: #### CRP, PE, C4, GLYHGB, CDP, IMMS, MARCELA, C3, CK, ANAX, URI, ANCACP, VD25, CP #### [address] [id number] Clothing Manager: Lawrence Goff MDGFR/1.73 sq M.predicted among non-blacks MDRD (S/P/Bld) [Vol rate/Area]35 mL/min/{1.73_m2}Low>60[facility] Medical CenterComment on above:Result Comment: These results are not intended for [...] or following therapy that affects renal tubular secretion.Performed By: #### CRP, PE, C4, GLYHGB, CDP, IMMS, MARCELA, C3, CK, ANAX, URI, ANCACP, VD25, CP #### [place] [address] Clothing Manager: Lawrence Goff MDGlucose [Mass/Vol]96 mg/aOSpidfm74-02UcxnrSan Luis Rey HospitalComment on above:Performed By: #### CRP, PE, C4, GLYHGB, CDP, IMMS, MARCELA, C3, CK, ANAX, URI, ANCACP, VD25, CP #### [place] [address] Clothing Manager: MICHEL Mccainotassium [Moles/Vol]4.9 mmol/LNormal3.7-5.3 [facility] CenterComment on above:Performed By: #### CRP, PE, C4, GLYHGB, CDP, IMMS, MARCELA, C3, CK, ANAX, URI, ANCACP, VD25, CP #### [place] [address] Clothing Manager: SARA Mccainodium [Moles/Vol]145 mmol/VDwzmls592-173DhijlMetrohealth Main Campus Medical CenterComment on above:Performed By: #### CRP, PE, C4, GLYHGB, CDP, IMMS, MARCELA, C3, CK, ANAX, URI, ANCACP, VD25, CP #### [place] [address] Clothing Manager: Lawrence Goff MDUrea nitrogen [Mass/Vol]38 mg/dLHigh6-20[facility] CenterComment on above:Performed By: #### CRP, PE, C4, GLYHGB, CDP, IMMS, MARCELA, C3, CK, ANAX, URI, ANCACP, VD25, CP #### [employer] [address] [place] [address] Clothing Manager: MDProt. Adán Electroph, Blon 65-14-8242Qjkwfwyrmss Review:ELECTRONICALLY SIGNED. BRANDY MOSS M.D.Parkview HealthComment on above:Performed By: #### CRP, PE, C4, GLYHGB, CDP, IMMS, MARCELA, C3, CK, ANAX, URI, ANCACP, VD25, CP #### [employer] [address] [place] [address] Clothing Manager: MDProt. Adán Elect-InterpNORMAL ELECTROPHORETIC PATTERN Parkview HealthComment on above:Performed By: #### CRP, PE, C4, GLYHGB, CDP, IMMS, MARCELA, C3, CK, ANAX, URI, ANCACP, VD25, CP #### [facility] [employer] [address] [place], [place] [phone] Clothing Manager: Lawrence Goff MDANA Screen w/reflexon 52-00-0434GPF Screen NegativeNormalNEGMetrohealth Main Campus Medical CenterComment on above:Performed By: #### CRP, PE, C4, GLYHGB, CDP, IMMS, MARCELA, C3, CK, ANAX, URI, ANCACP, VD25, CP #### [employer] [address] [place] [address] [phone] Clothing Manager: Rex Mccaini-dsDNA<0.5Normal<10.0[facility] Medical CenterComment on above:Result Comment: Reference Range: <10.0 Negative 10.0-15.0 Equivocal >15.0 PositivePerformed By: #### CRP, PE, C4, GLYHGB, CDP, IMMS, MARCELA, C3, CK, ANAX, URI, ANCACP, VD25, CP #### [employer] [address] [place] [address] Clothing Manager: ANIL Mccain Screen0.4 U/mLNormal<0.7[facility] CenterComment on above:Result Comment: Reference Range: <0.7 Negative 0.7-1.0 Equivocal >1.0 Positive TEREZA Screen includes U1RNP,RNP70,Sm,Ro(SS-A),La(SS-B),CENP,Scl-70,Orin-1Performed By: #### CRP, PE, C4, GLYHGB, CDP, IMMS, MARCELA, C3, CK, ANAX, URI, ANCACP, VD25, CP #### [employer] [address] [place], [place] [phone] Clothing Manager: Adelia Mccain Metab w/rfx MGon 57-11-5975Cqjun gap [Moles/Vol]12 mmol/LNormal9-16[facility] CenterComment on above: Performed By: #### CRP, PE, C4, GLYHGB, CDP, IMMS, MARCELA, C3, CK, ANAX, URI, ANCACP, VD25, CP #### [employer] [address] [place], [place] [phone] Clothing Manager: ARNOLDO Mccainalcium [Mass/Vol]8.4 mg/dLLow8.6-10.4[facility] CenterComment on above:Performed By: #### CRP, PE, C4, GLYHGB, CDP, IMMS, MARCELA, C3, CK, ANAX, URI, ANCACP, VD25, CP #### [employer] [address] [place], [place] [phone] Clothing Manager: ARNOLDO Mccainhloride [Moles/Vol]101 mmol/JGcuwlm37-458NvrvfMetrohealth Main Campus Medical CenterComment on above:Performed By: #### CRP, PE, C4, GLYHGB, CDP, IMMS, MARCELA, C3, CK, ANAX, URI, ANCACP, VD25, CP #### [employer] [address] [place] [address] [phone] Clothing Manager: ARNOLDO MccainO2 [Moles/Vol]32 mmol/HEkxu77-62NwptxMetrohealth Main Campus Medical CenterComment on above:Performed By: #### CRP, PE, C4, GLYHGB, CDP, IMMS, MARCELA, C3, CK, ANAX, URI, ANCACP, VD25, CP #### [place] [phone] Clothing Manager: ARNOLDO Mccainreatinine [Mass/Vol]2.4 mg/dLHigh0.50-0.90[facility] CenterComment on above:Performed By: #### CRP, PE, C4, GLYHGB, CDP, IMMS, MARCELA, C3, CK, ANAX, URI, ANCACP, VD25, CP #### [place] [phone] Clothing Manager: Lawrence Goff MDGFR/1.73 sq M.predicted among non-blacks MDRD (S/P/Bld) [Vol rate/Area]24 mL/min/{1.73_m2}Low>60[facility] CenterComment on above:Result Comment: These results are not intended for [...] or following therapy that affects renal tubular secretion.Performed By: #### CRP, PE, C4, GLYHGB, CDP, IMMS, MARCELA, C3, CK, ANAX, URI, ANCACP, VD25, CP #### [facility] [employer] [address] [place] [address] [phone] Clothing Manager: Lawrence Goff MDGlucose [Mass/Vol]140 mg/xSKaon38-90YnspoSan Luis Rey HospitalComment on above:Performed By: #### CRP, PE, C4, GLYHGB, CDP, IMMS, MARCELA, C3, CK, ANAX, URI, ANCACP, VD25, CP #### [place] [address] Clothing Manager: MICHEL Mccainotassium [Moles/Vol]4.5 mmol/LNormal3.7-5.3 [facility] CenterComment on above:Performed By: #### CRP, PE, C4, GLYHGB, CDP, IMMS, MARCELA, C3, CK, ANAX, URI, ANCACP, VD25, CP #### [place] [phone] Clothing Manager: SARA Mccainodium [Moles/Vol]145 mmol/IQmfdmb627-924QsqmsMetrohealth Main Campus Medical CenterComment on above:Performed By: #### CRP, PE, C4, GLYHGB, CDP, IMMS, MARCELA, C3, CK, ANAX, URI, ANCACP, VD25, CP #### [place] [address] Clothing Manager: Lawrence Goff MDUrea nitrogen [Mass/Vol]61 mg/dLHigh6-20[facility] CenterComment on above:Performed By: #### CRP, PE, C4, GLYHGB, CDP, IMMS, MARCELA, C3, CK, ANAX, URI, ANCACP, VD25, CP #### [place] [address] Clothing Manager: Lawrence Goff MDAnion gap [Moles/Vol]12 mmol/LNormal9-16[facility] CenterComment on above:Performed By: #### CRP, PE, C4, GLYHGB, CDP, IMMS, MARCELA, C3, CK, ANAX, URI, ANCACP, VD25, CP #### [address] [phone] Clothing Manager: Lawrence Madoff, MDCalcium [Mass/Vol]8.7 mg/dLNormal8.6-10.4[facility] CenterComment on above:Performed By: #### CRP, PE, C4, GLYHGB, CDP, IMMS, MARCELA, C3, CK, ANAX, URI, ANCACP, VD25, CP #### [place] [phone] Clothing Manager: ARNOLDO Mccainhloride [Moles/Vol]100 mmol/ARoxdhk90-813IpcesMetrohealth Main Campus Medical CenterComment on above:Performed By: #### CRP, PE, C4, GLYHGB, CDP, IMMS, MARCELA, C3, CK, ANAX, URI, ANCACP, VD25, CP #### [place] [phone] Clothing Manager: ARNOLDO MccainO2 [Moles/Vol]32 mmol/ZXnps65-62JmlydMetrohealth Main Campus Medical CenterComment on above:Performed By: #### CRP, PE, C4, GLYHGB, CDP, IMMS, MARCELA, C3, CK, ANAX, URI, ANCACP, VD25, CP #### [place] [phone] Clothing Manager: ARNOLDO Mccainreatinine [Mass/Vol]2.6 mg/dLHigh0.50-0.90[facility] CenterComment on above:Performed By: #### CRP, PE, C4, GLYHGB, CDP, IMMS, MARCELA, C3, CK, ANAX, URI, ANCACP, VD25, CP #### [place] [phone] Clothing Manager: Lawrence Goff MDGFR/1.73 sq M.predicted among non-blacks MDRD (S/P/Bld) [Vol rate/Area]22 mL/min/{1.73_m2}Low>60[facility] CenterComment on above:Result Comment: These results are not intended for [...] or following therapy that affects renal tubular secretion.Performed By: #### CRP, PE, C4, GLYHGB, CDP, IMMS, MARCELA, C3, CK, ANAX, URI, ANCACP, VD25, CP #### [place] [address] Clothing Manager: Lawrence Goff MDGlucose [Mass/Vol]178 mg/oYKkcs75-68RwlesSan Luis Rey HospitalComment on above:Performed By: #### CRP, PE, C4, GLYHGB, CDP, IMMS, MARCELA, C3, CK, ANAX, URI, ANCACP, VD25, CP #### [place] [address] Clothing Manager: MICHEL Mccainotassium [Moles/Vol]3.6 mmol/LLow3.7-5.3MSan Luis Rey HospitalComment on above:Performed By: #### CRP, PE, C4, GLYHGB, CDP, IMMS, MARCELA, C3, CK, ANAX, URI, ANCACP, VD25, CP #### [place] [address] Clothing Manager: SARA Mccainodium [Moles/Vol]144 mmol/BGviwkp191-790JahbsMetrohealth Main Campus Medical CenterComment on above:Performed By: #### CRP, PE, C4, GLYHGB, CDP, IMMS, MARCELA, C3, CK, ANAX, URI, ANCACP, VD25, CP #### [address] [phone] Clothing Manager: Lawrence Goff MDUrea nitrogen [Mass/Vol]65 mg/dLHigh6-20[facility] CenterComment on above:Performed By: #### CRP, PE, C4, GLYHGB, CDP, IMMS, MARCELA, C3, CK, ANAX, URI, ANCACP, VD25, CP #### [address] [phone] Clothing Manager: Liliya Mccain gap [Moles/Vol]16 mmol/LNormal9-16[facility] CenterComment on above:Performed By: #### CRP, PE, C4, GLYHGB, CDP, IMMS, MARCELA, C3, CK, ANAX, URI, ANCACP, VD25, CP #### [place] [address] Clothing Manager: ARNOLDO Mccainalcium [Mass/Vol]9.7 mg/dLNormal8.6-10.4[facility] CenterComment on above:Performed By: #### CRP, PE, C4, GLYHGB, CDP, IMMS, MARCELA, C3, CK, ANAX, URI, ANCACP, VD25, CP #### [address] [phone] Clothing Manager: ARNOLDO Mccainhloride [Moles/Vol]104 mmol/XOhiuno93-137VissdMetrohealth Main Campus Medical CenterComment on above:Performed By: #### CRP, PE, C4, GLYHGB, CDP, IMMS, MARCELA, C3, CK, ANAX, URI, ANCACP, VD25, CP #### [address] [phone] Clothing Manager: ARNOLDO MccainO2 [Moles/Vol]22 mmol/MXyjfnt12-83MfdutMetrohealth Main Campus Medical CenterComment on above:Performed By: #### CRP, PE, C4, GLYHGB, CDP, IMMS, MARCELA, C3, CK, ANAX, URI, ANCACP, VD25, CP #### [address] [phone] Clothing Manager: ARNOLDO Mccainreatinine [Mass/Vol]2.4 mg/dLHigh0.50-0.90[facility] CenterComment on above:Performed By: #### CRP, PE, C4, GLYHGB, CDP, IMMS, MARCELA, C3, CK, ANAX, URI, ANCACP, VD25, CP #### [address] [phone] Clothing Manager: Lawrence Goff MDGFR/1.73 sq M.predicted among non-blacks MDRD (S/P/Bld) [Vol rate/Area]24 mL/min/{1.73_m2}Low>60[facility] CenterComment on above:Result Comment: These results are not intended for [...] or following therapy that affects renal tubular secretion.Performed By: #### CRP, PE, C4, GLYHGB, CDP, IMMS, MARCELA, C3, CK, ANAX, URI, ANCACP, VD25, CP #### [address] [phone] Clothing Manager: Lawrence Goff MDGlucose [Mass/Vol]107 mg/vJAres18-85KmcgcSan Luis Rey HospitalComment on above:Performed By: #### CRP, PE, C4, GLYHGB, CDP, IMMS, MARCELA, C3, CK, ANAX, URI, ANCACP, VD25, CP #### [address] [phone] Clothing Manager: MICHEL Mccainotassium [Moles/Vol]4.2 mmol/LNormal3.7-5.3 [facility] CenterComment on above:Performed By: #### CRP, PE, C4, GLYHGB, CDP, IMMS, MARCELA, C3, CK, ANAX, URI, ANCACP, VD25, CP #### [address] [phone] Clothing Manager: SARA Mccainodium [Moles/Vol]142 mmol/FQjugon496-354TdqbhMetrohealth Main Campus Medical CenterComment on above:Performed By: #### CRP, PE, C4, GLYHGB, CDP, IMMS, MARCELA, C3, CK, ANAX, URI, ANCACP, VD25, CP #### [address] [phone] Clothing Manager: Lawrence Goff MDUrea nitrogen [Mass/Vol]68 mg/dLBeckley Appalachian Regional Hospital6-20[facility] CenterComment on above:Performed By: #### CRP, PE, C4, GLYHGB, CDP, IMMS, MARCELA, C3, CK, ANAX, URI, ANCACP, VD25, CP #### [address] [phone] Clothing Manager: Lawrence Goff MDEosinophils, Urineon 74-82-6568Twgdkxxhndg, UrineNone SeenNoDelaware County HospitalComment on above: Performed By: #### CRP, PE, C4, GLYHGB, CDP, IMMS, MARCELA, C3, CK, ANAX, URI, ANCACP, VD25, CP #### [address] [phone] Clothing Manager: Lawrence Goff MDHemoglobin A1Con 48-20-2400Ggeishx [Mass/Vol]137 mg/dLParkview HealthComment on above:Result Comment: The ADA and AACC recommend providing the estimated average glucose result to permit better patient understanding of their HBA1c result.Performed By: #### CRP, PE, C4, GLYHGB, CDP, IMMS, MARCELA, C3, CK, ANAX, URI, ANCACP, VD25, CP #### [address] [phone] Clothing Manager: Lawrence Goff MDHbA1c (Bld) [Mass fraction]6.4 %High4.0-6.0[facility] CenterComment on above:Performed By: #### CRP, PE, C4, GLYHGB, CDP, IMMS, MARCELA, C3, CK, ANAX, URI, ANCACP, VD25, CP #### [address] [phone] Clothing Manager: Lawrence Goff MDLipid Profileon 11-41-7941Vhfzmuqcqsx [Mass/Vol] 163 mg/dLNormal0-199[facility] CenterComment on above:Result Comment: Cholesterol Guidelines: <200 Desirable 200-240 Borderline >240 UndesirablePerformed By: #### CRP, PE, C4, GLYHGB, CDP, IMMS, MARCELA, C3, CK, ANAX, URI, ANCACP, VD25, CP #### [address] [address] Clothing Manager: ARNOLDO Mccainholesterol in HDL [Mass/Vol]47 mg/dLNormal>40 [facility] CenterComment on above:Result Comment: HDL Guidelines: <40 Undesirable 40-59 Borderline >59 DesirablePerformed By: #### CRP, PE, C4, GLYHGB, CDP, IMMS, MARCELA, C3, CK, ANAX, URI, ANCACP, VD25, CP #### [address] [phone] Clothing Manager: ARNOLDO Mccainholesterol in LDL [Mass/Vol]102 mg/dLHigh0-100 [facility] CenterComment on above:Result Comment: LDL Guidelines: <100 Desirable 100-129 Near to/above Desirable 130-159 Borderline >159 Undesirable Direct (measured) LDL and calculated LDL are not interchangeable tests.Performed By: #### CRP, PE, C4, GLYHGB, CDP, IMMS, MARCELA, C3, CK, ANAX, URI, ANCACP, VD25, CP #### [address] [phone] Clothing Manager: ARNOLDO Mccainholesterol in VLDL [Mass/Vol]14 mg/dLNormal [facility] CenterComment on above:Performed By: #### CRP, PE, C4, GLYHGB, CDP, IMMS, MARCELA, C3, CK, ANAX, URI, ANCACP, VD25, CP #### [address] [phone] Clothing Manager: ARNOLDO Mccainholestaxel.total/Cholesterol in HDL [Mass ratio]3.0 {ratio}NormalMetrohealth Main Campus Medical CenterComment on above: Performed By: #### CRP, PE, C4, GLYHGB, CDP, IMMS, MARCELA, C3, CK, ANAX, URI, ANCACP, VD25, CP #### [address] [phone] Clothing Manager: Lawrence Goff MDTriglyceride [Mass/Vol]71 mg/dLNormal<150[facility] CenterComment on above:Result Comment: Triglyceride Guidelines: <150 Desirable 150-199 Borderline 200-499 High >499 Very high Based on AHA Guidelines for fasting triglyceride, February 2012.Performed By: #### CRP, PE, C4, GLYHGB, CDP, IMMS, MARCELA, C3, CK, ANAX, URI, ANCACP, VD25, CP #### [address] [phone] Clothing Manager: Lawrence Goff MDNeutrophil Cytopl Abon 93-35-8587NXH-ANCA0.4 AU/mLNormal0.0-3.5[facility] CenterComment on above:Result Comment: Reference Range: <3.5 Negative 3.5-5.0 Equivocal >5.0 PositivePerformed By: #### CRP, PE, C4, GLYHGB, CDP, IMMS, MARCELA, C3, CK, ANAX, URI, ANCACP, VD25, CP #### [address] [address] Clothing Manager: MARIO Mccain-ANCA0.8 AU/mLNormal0.0-2.0[facility] CenterComment on above:Result Comment: Reference Range: <2.0 Negative 2.0-3.0 Equivocal >3.0 PositivePerformed By: #### CRP, PE, C4, GLYHGB, CDP, IMMS, MARCELA, C3, CK, ANAX, URI, ANCACP, VD25, CP #### [place] [address] Clothing Manager: Dev Mccain. Electroph, Blon 65-77-7069Litdpzj [Mass/Vol]4.2 g/dLNormal3.2-5.2MSan Luis Rey HospitalComment on above: Performed By: #### CRP, PE, C4, GLYHGB, CDP, IMMS, MARCELA, C3, CK, ANAX, URI, ANCACP, VD25, CP #### [place] [address] Clothing Manager: Lawrence Goff MDAlbumin, %60 %Jicqat45-29CwktaMetrohealth Main Campus Medical CenterComment on above:Performed By: #### CRP, PE, C4, GLYHGB, CDP, IMMS, MARCELA, C3, CK, ANAX, URI, ANCACP, VD25, CP #### [place] [phone] Clothing Manager: Lawrence Goff MDAVYNzhhh-3-lyuiprgnd7.3 g/dLNormal0.1-0.4[facility] CenterComment on above:Performed By: #### CRP, PE, C4, GLYHGB, CDP, IMMS, MARCELA, C3, CK, ANAX, URI, ANCACP, VD25, CP #### [address], [place] [phone] Clothing Manager: Lawrence Goff MDAlpha-1-globulins,%5 %Normal3-6[facility] And Health CenterComment on above:Performed By: #### CRP, PE, C4, GLYHGB, CDP, IMMS, MARCELA, C3, CK, ANAX, URI, ANCACP, VD25, CP #### [address] [phone] Clothing Manager: Lawrence Goff MDANUVebpz-3-dkmxrwsdi2.7 g/dLNormal0.5-0.9[facility] CenterComment on above:Performed By: #### CRP, PE, C4, GLYHGB, CDP, IMMS, MARCELA, C3, CK, ANAX, URI, ANCACP, VD25, CP #### [address] [phone] Clothing Manager: Lawrence Goff MDAlpha-2-globulins,%10 %Normal6-13[facility] Hospitalcy [facility] And Health CenterComment on above:Performed By: #### CRP, PE, C4, GLYHGB, CDP, IMMS, MARCELA, C3, CK, ANAX, URI, ANCACP, VD25, CP #### [address] [phone] Clothing Manager: Lawrence Goff MDBeta-globulins0.9 g/dLNormal0.5-1.1[facility] Health CenterComment on above:Performed By: #### CRP, PE, C4, GLYHGB, CDP, IMMS, MARCELA, C3, CK, ANAX, URI, ANCACP, VD25, CP #### [address] [phone] Clothing Manager: Lawrence Goff MDBeta-globulins,%12 %Htcxgf50-76Cgpkt [facility] Health CenterComment on above:Performed By: #### CRP, PE, C4, GLYHGB, CDP, IMMS, MARCELA, C3, CK, ANAX, URI, ANCACP, VD25, CP #### [address] [address] Clothing Manager: Delia MccainmmaHumairaglobulins0.9 g/dLNormal0.5-1.5[facility] CenterComment on above:Performed By: #### CRP, PE, C4, GLYHGB, CDP, IMMS, MARCELA, C3, CK, ANAX, URI, ANCACP, VD25, CP #### [address] 1977408 Clothing Manager: Delia MccainmmaHumairaglobulins,%13 %Normal9-20[facility] CenterComment on above:Performed By: #### CRP, PE, C4, GLYHGB, CDP, IMMS, MARCELA, C3, CK, ANAX, URI, ANCACP, VD25, CP #### [address] [address] Clothing Manager: Martha Mccain Prot. Sum7.0 g/dLNormal6.3-8.2MSan Luis Rey HospitalComment on above:Performed By: #### CRP, PE, C4, GLYHGB, CDP, IMMS, MARCELA, C3, CK, ANAX, URI, ANCACP, VD25, CP #### [address] [address] Clothing Manager: Martha Mccain Prot. Sum,%100 %Ihzhee19-210FapbjMetrohealth Main Campus Medical CenterComment on above:Performed By: #### CRP, PE, C4, GLYHGB, CDP, IMMS, MARCELA, C3, CK, ANAX, URI, ANCACP, VD25, CP #### [address] [address] Clothing Manager: Lawrence Goff MDProtein [Mass/Vol]6.9 g/dLNormal6.6-8.7[facility] CenterComment on above:Performed By: #### CRP, PE, C4, GLYHGB, CDP, IMMS, MARCELA, C3, CK, ANAX, URI, ANCACP, VD25, CP #### [address] [phone] Clothing Manager: MICHEL Mccainrotein,Tot,Sayner Uron 37-44-9574Roxhscgrsa [Mass/Vol]55.8 mg/sVTifppk95.0-217.0[facility] CenterComment on above:Performed By: #### CRP, PE, C4, GLYHGB, CDP, IMMS, MARCELA, C3, CK, ANAX, URI, ANCACP, VD25, CP #### [place] [phone] Clothing Manager: Hayden Mccain Prot. Conc.8 mg/dLNormalMetrohealth Main Campus Medical CenterComment on above:Result Comment: No normal range established. Performed By: #### CRP, PE, C4, GLYHGB, CDP, IMMS, MARCELA, C3, CK, ANAX, URI, ANCACP, VD25, CP #### [place] [phone] Clothing Manager: Lawrence Goff MDTP/Cre Ratio0.14NormalMetrohealth Main Campus Medical CenterComment on above:Performed By: #### CRP, PE, C4, GLYHGB, CDP, IMMS, MARCELA, C3, CK, ANAX, URI, ANCACP, VD25, CP #### [place] [address] Clothing Manager: CAIT Mccain w/reflex to FT4on 39-48-4726Oxddyfu Stim. Horm.2.03 uIU/mLNormal0.27-4.20[facility] CenterComment on above: Performed By: #### CRP, PE, C4, GLYHGB, CDP, IMMS, MARCELA, C3, CK, ANAX, URI, ANCACP, VD25, CP #### [address] [address] Clothing Manager: ZAKIYA Mccain RETROPERITONEAL LIMITEDon 55-33-9595ND RETROPERITONEAL LIMITEDEXAMINATION: ULTRASOUND OF THE KIDNEYS 01/20/2024 10:07 pm [...] Signed by: Nancy Medina MD 01/21/24 Final resultNormalMetrohealth Main Campus Medical CenterC-Reactive Proteinon 53-73-7688NLP [Mass/Vol]mg/LNormal0.0-5.0[facility] CenterComment on above:Performed By: #### CRP, PE, C4, GLYHGB, CDP, IMMS, MARCELA, C3, CK, ANAX, URI, ANCACP, VD25, CP #### [address] [phone] Clothing Manager: Lawrence Goff [facility]3on 76-49-8901R7062 mg/oTSvdsez29-558CdavzMetrohealth Main Campus Medical CenterComment on above:Performed By: #### CRP, PE, C4, GLYHGB, CDP, IMMS, MARCELA, C3, CK, ANAX, URI, ANCACP, VD25, CP #### [address] [phone] Clothing Manager: Lawrence Goff [facility]4on 38-85-0964Y221 mg/fTWvvqun57-68UsiuwMetrohealth Main Campus Medical CenterComment on above:Performed By: #### CRP, PE, C4, GLYHGB, CDP, IMMS, MARCELA, C3, CK, ANAX, URI, ANCACP, VD25, CP #### [employer] [address] [place] [address] Clothing Manager: Lawrence Goff, MDCBC AND AUTO DIFFon 78-86-1846JMCNZMNI BASOPHIL 0.0 X10E9/LNormal0.0-0.2Pro[facility] Queen Of The Valley HospitalComment on above:Performed By: #### CBCStormy, 85968-4, CMP, 84728-3, 04722-3 #### [facility] ([id number]) [address] [place] [address] 11658QVVFBIOJ NEUTROPHIL9.5 X10E9/LHigh1.5-6.6St. Elizabeth HospitalComment on above:Performed By: #### CBCStormy, 69155-0, CMP, , 74237-7 #### [facility] ([id number]) [address] [place] [address] 32178Okmxfuzpj/100 WBC (Bld)0.2 %[facility] Comment on above:Performed By: #### CBCStormy, 67001-0, CMP, , 95832-9 #### [facility] ([id number]) [address] [place] [address] 18388Ecpnzzpccci (Bld) [#/Vol]0.0 10*3/uLNormal0.0-0.4St. Elizabeth HospitalComment on above:Performed By: #### CBCA, 77640-6, CMP, , 03603-4 #### [facility] ([id number]) [address] [place] [address] 31825Siynpekoexa/100 WBC (Bld)0.2 %[facility] Comment on above:Performed By: #### CBCA, 11192-4, CMP, 19805-9, 62619-3 #### [facility] ([id number]) [address] [place] [address] 44770Egcnneraici distribution width (RBC) [Ratio]15.8 %High11.5-15.0 ProMLos Medanos Community HospitalComment on above:Performed By: #### JENNIFER, 78372-7, CMP, 51564-3, 87780-8 #### [facility] ([id number]) [address] [place] [address] 48977Uynhfcdecn (Bld) [Volume fraction]37.3 %Hlbafu88-82AatRvqguvThe Hospitals Of Providence Transmountain CampusComment on above:Performed By: #### JENNIFER, 83181-3, CMP, 70696-8, 78465-6 #### [facility] ([id number]) [address] [place] [address] 94040Ztkgnsxibx (Bld) [Mass/Vol]12.0 g/nVNgjnah52.7-15.5POhioHealth Pickerington Methodist HospitalComment on above:Performed By: #### JENNIFER, 87385-2, CMP, , 01386-8 #### [facility] ([id number]) [address] [place] [address] [id number] (Bld) [#/Vol]1.2 10*3/uLNormal1.0-3.5POhioHealth Pickerington Methodist HospitalComment on above:Performed By: #### JENNIFER, 57782-1, CMP, 04358-4, 35287-1 #### [facility] ([id number]) [address] [place] [address] 79141Vcxxvpdaudg/100 WBC (Bld)10.8 %NormalSt. Elizabeth Hospital Comment on above:Performed By: #### JENNIFER, 82199-5, CMP, 32443-2, 00713-4 #### [facility] ([id number]) [address] [place] [address] 39600YYM (RBC) [Entitic mass]30.7 ouWgjoni01-49QhlCiiblkThe Hospitals Of Providence Transmountain CampusComment on above:Performed By: #### CBCA, 40472-8, CMP, 08552-7, 93979-0 #### [facility] ([id number]) [address] [place] [address] 26516MAQB (RBC) [Mass/Vol]32.2 g/oXFwaxsg04-44SohLmmpvzThe Hospitals Of Providence Transmountain CampusComment on above:Performed By: #### CBCStormy, 73617-2, CMP, 08978-5, 12407-0 #### [facility] ([id number]) [address] [place] [address] 86641JEI (RBC) [Entitic vol]95 nDRasxdt65-449VicBckgvw Fremont HospitalComment on above:Performed By: #### CBCStormy, 65251-5, CMP, 06191-3, 12278-9 #### [facility] ([id number]) [address] [place] [address] 46437Yrpqaegnm (Bld) [#/Vol]0.6 10*3/uLNormal0-0.9St. Elizabeth HospitalComment on above:Performed By: #### CBCA, 86549-2, CMP, 42385-0, 85099-3 #### [facility] ([id number]) [address] [place] [address] 76285Mcggrroxm/100 WBC (Bld)5.6 %NormalProThe Hospitals Of [facility] Comment on above:Performed By: #### CBCA, 60970-4, CMP, 60536-9, 88693-2 #### [facility] ([id number]) [address] [place] [address] 20434Rtwjcoqzbub/100 WBC (Bld)83.2 %NormalSt. Elizabeth Hospital Comment on above:Performed By: #### CBCStormy, 11826-3, CMP, 10285-3, 96963-0 #### [facility] ([id number]) [address] [place] [address] 64318Mwzkmige mean volume (Bld) [Entitic vol]7.9 fLNormal7-12 [address] Elizabeth HospitalComment on above:Performed By: #### CBCA, 08777-8, CMP, 31630-3, 14486-8 #### [facility] ([id number]) [address] [place] [address] 93886Ozacctchk (Bld) [#/Vol]290 10*3/aDCluatj763-834HeyGoswcqSt. Elizabeth HospitalComment on above:Performed By: #### JENNIFER, 92654-8, CMP, , 72661-8 #### [facility] ([id number]) [address] [place] [address] 92390KIC COUNT3.90 X10E12/LNormal3.80-5.20[facility] Comment on above:Performed By: #### JENNIFER, 41955-7, CMP, , 89413-9 #### [facility] ([id number]) [address] [place] [address] 34204CPH (Bld) [#/Vol]11.4 10*3/uLHigh4.0-11.0St. Elizabeth HospitalComment on above:Performed By: #### CBCA, 78497-5, CMP, 45316-6, 92361-1 #### [facility] ([id number]) [address] [place] [address] 39179BHS with Diffon 87-51-6456Gbt. Basophil<0.07Npweyg4.00-0.20 [facility] CenterComment on above:Performed By: #### CRP, PE, C4, GLYHGB, CDP, IMMS, MARCELA, C3, CK, ANAX, URI, ANCACP, VD25, CP #### [place] [id number] Clothing Manager: Reagan Mccain. Eosinophil<0.31Ivnine0.00-0.44[facility] Medical CenterComment on above:Performed By: #### CRP, PE, C4, GLYHGB, CDP, IMMS, MARCELA, C3, CK, ANAX, URI, ANCACP, VD25, CP #### [place] [address] Clothing Manager: Reagan Mccain.Imm.Granulocyte0.03 k/uLNormal0.00-0.30[facility] CenterComment on above:Performed By: #### CRP, PE, C4, GLYHGB, CDP, IMMS, MARCELA, C3, CK, ANAX, URI, ANCACP, VD25, CP #### [place] [address] Clothing Manager: Reagan Mccain.Neutrophil (Seg)7.50 k/uLNormal1.50-8.10 [facility] CenterComment on above:Performed By: #### CRP, PE, C4, GLYHGB, CDP, IMMS, MARCELA, C3, CK, ANAX, URI, ANCACP, VD25, CP #### [place] [address] Clothing Manager: Lawrence Goff MDBasophils/100 WBC (Bld)0 %Normal0-2MSan Luis Rey HospitalComment on above:Performed By: #### CRP, PE, C4, GLYHGB, CDP, IMMS, MARCELA, C3, CK, ANAX, URI, ANCACP, VD25, CP #### [place] [address] Clothing Manager: Lawrence Goff MDEosinophils/100 WBC (Bld)0 %Low1-4[facility] CenterComment on above:Performed By: #### CRP, PE, C4, GLYHGB, CDP, IMMS, MARCELA, C3, CK, ANAX, URI, ANCACP, VD25, CP #### [address] [address] Clothing Manager: Lawrence Goff MDErythrocyte distribution width (RBC) [Ratio]15.2 %High11.8-14.4[facility] CenterComment on above:Performed By: #### CRP, PE, C4, GLYHGB, CDP, IMMS, MARCELA, C3, CK, ANAX, URI, ANCACP, VD25, CP #### [place] [id number] Clothing Manager: Lawrence Goff MDHematocrit (Bld) [Volume fraction]32.3 %Low 36.3-47.1MSan Luis Rey HospitalComment on above:Performed By: #### CRP, PE, C4, GLYHGB, CDP, IMMS, MARCELA, C3, CK, ANAX, URI, ANCACP, VD25, CP #### [place] [phone] Clothing Manager: Lawrence Goff MDHemoglobin (Bld) [Mass/Vol]10.7 g/dLLow11.9-15.1 [facility] CenterComment on above:Performed By: #### CRP, PE, C4, GLYHGB, CDP, IMMS, MARCELA, C3, CK, ANAX, URI, ANCACP, VD25, CP #### [place] [phone] Clothing Manager: Lawrence Goff MDImmature granulocytes/100 WBC (Bld)0 %Normal0 [facility] CenterComment on above:Performed By: #### CRP, PE, C4, GLYHGB, CDP, IMMS, MARCELA, C3, CK, ANAX, URI, ANCACP, VD25, CP #### [address] [address] Clothing Manager: Larwence Goff MDLymphocytes (Bld) [#/Vol]1.54 10*3/uLNormal 1.10-3.70[facility] CenterComment on above:Performed By: #### CRP, PE, C4, GLYHGB, CDP, IMMS, MARCELA, C3, CK, ANAX, URI, ANCACP, VD25, CP #### [address] [address] Clothing Manager: Kendell Mccainhocytes/100 WBC (Bld)15 %Luy82-27YbewyMetrohealth Main Campus Medical CenterComment on above:Performed By: #### CRP, PE, C4, GLYHGB, CDP, IMMS, MARCELA, C3, CK, ANAX, URI, ANCACP, VD25, CP #### [place] [phone] Clothing Manager: JESE Mccain (RBC) [Entitic mass]31.2 taTprhud96.2-33.5 [facility] CenterComment on above:Performed By: #### CRP, PE, C4, GLYHGB, CDP, IMMS, MARCELA, C3, CK, ANAX, URI, ANCACP, VD25, CP #### [address] [phone] Clothing Manager: JESE MccainC (RBC) [Mass/Vol]33.1 g/iDDbfojw73.4-34.8 [facility] CenterComment on above:Performed By: #### CRP, PE, C4, GLYHGB, CDP, IMMS, MARCELA, C3, CK, ANAX, URI, ANCACP, VD25, CP #### [address] [place] [phone] Clothing Manager: KERRIE MccainCV (RBC) [Entitic vol]94.2 rPVgafma16.6-102.9 [facility] CenterComment on above:Performed By: #### CRP, PE, C4, GLYHGB, CDP, IMMS, MARCELA, C3, CK, ANAX, URI, ANCACP, VD25, CP #### [address] [phone] Clothing Manager: KERRIE Mccainonocytes (Bld) [#/Vol]0.86 10*3/uLNormal 0.10-1.20[facility] CenterComment on above:Performed By: #### CRP, PE, C4, GLYHGB, CDP, IMMS, MARCELA, C3, CK, ANAX, URI, ANCACP, VD25, CP #### [place] [phone] Clothing Manager: KERRIE Mccainonocytes/100 WBC (Bld)9 %Normal3-12[facility] CenterComment on above:Performed By: #### CRP, PE, C4, GLYHGB, CDP, IMMS, MARCELA, C3, CK, ANAX, URI, ANCACP, VD25, CP #### [place] [address] Clothing Manager: Felecia Mccainutrophil (Seg)76 %Qsre60-73ByaqlMetrohealth Main Campus Medical CenterComment on above:Performed By: #### CRP, PE, C4, GLYHGB, CDP, IMMS, MARCELA, C3, CK, ANAX, URI, ANCACP, VD25, CP #### [address] [address] Clothing Manager: Lawrence Goff MDNRBC Automated0.0 per 100 WBCNormal0.0[facility] Medical CenterComment on above:Performed By: #### CRP, PE, C4, GLYHGB, CDP, IMMS, MARCELA, C3, CK, ANAX, URI, ANCACP, VD25, CP #### [place] [phone] Clothing Manager: Yanelis Mccain mean volume (Bld) [Entitic vol]9.6 fL Normal8.1-13.5[facility] CenterComment on above:Performed By: #### CRP, PE, C4, GLYHGB, CDP, IMMS, MARCELA, C3, CK, ANAX, URI, ANCACP, VD25, CP #### [place] [phone] Clothing Manager: Rob Mccain (Bld) [#/Vol]242 10*3/wIFsogsu052-138 [facility] CenterComment on above:Performed By: #### CRP, PE, C4, GLYHGB, CDP, IMMS, MARCELA, C3, CK, ANAX, URI, ANCACP, VD25, CP #### [place] [phone] Clothing Manager: NATALIE Mccain (Bld) [#/Vol]3.43 10*6/uLLow3.95-5.11[facility] CenterComment on above:Performed By: #### CRP, PE, C4, GLYHGB, CDP, IMMS, MARCELA, C3, CK, ANAX, URI, ANCACP, VD25, CP #### [place] [address] Clothing Manager: NATALIE Mccain morphology finding Nom (Bld)ANISOCYTOSIS PRESENTNormalMetrohealth Main Campus Medical CenterComment on above:Performed By: #### CRP, PE, C4, GLYHGB, CDP, IMMS, MARCELA, C3, CK, ANAX, URI, ANCACP, VD25, CP #### [place] [address] Clothing Manager: GABINO Mccain (Bld) [#/Vol]10.0 10*3/uLNormal3.5-11.3[facility] CenterComment on above:Performed By: #### CRP, PE, C4, GLYHGB, CDP, IMMS, MARCELA, C3, CK, ANAX, URI, ANCACP, VD25, CP #### [facility] [address] [place], [place] [phone] Clothing Manager: Lawrence Goff [facility] – FAIRVIEWOMPREHENSIVE METABOLIC PANELon 01-20-2024 Albumin [Mass/Vol]4.7 g/dLNormal3.2-5.3POhioHealth Pickerington Methodist HospitalComment on above:Performed By: #### JENNIFER, 45563-3, CMP, 58674-5, 69681-4 #### [facility] ([id number]) [address] [place] [address] 47508YKN [Catalytic activity/Vol]85 U/TCkxhev24-283AcsTtqtjpThe Hospitals Of Providence Transmountain CampusComment on above:Performed By: #### JENNIFER, 28432-2, CMP, 12284-4, 01374-7 #### [facility] ([id number]) [address] [place] [address] 83691APK [Catalytic activity/Vol]17 U/LNormal0-31POhioHealth Pickerington Methodist HospitalComment on above:Performed By: #### CBCA, 47156-1, CMP, 83121-8, 96155-0 #### [facility] ([id number]) [address] [place] [address] 98094Vvbnh gap [Moles/Vol]8 mmol/LNormal5-15St. [facility] HospitalComment on above:Performed By: #### CBCA, 79570-0, CMP, 54744-9, 33595-4 #### [facility] ([id number]) [address] [place] [address] [place] [address]EIB [Catalytic activity/Vol]19 U/LNormal0-41ProThe Hospitals Of Providence Transmountain CampusComment on above:Performed By: #### JENNIFER, 35547-1, CMP, 36152-0, 25181-2 #### [facility] ([id number]) [address] [place] [address] 36126Kojglikma [Mass/Vol]0.3 mg/dLNormal0.3-1.2POhioHealth Pickerington Methodist HospitalComment on above:Performed By: #### JENNIFER, 74738-6, CMP, 16673-4, 34730-0 #### [facility] ([id number]) [address] [place] [address] 59131Vaohapu [Mass/Vol]9.3 mg/dLNormal8.5-10.5POhioHealth Pickerington Methodist HospitalComment on above:Performed By: #### JENNIFER, 07746-9, CMP, , 12324-6 #### [facility] ([id number]) [address] [place] [address] 12241Mnelvmjq [Moles/Vol]112 mmol/KSvam95-912XdgExrncpThe Hospitals Of Providence Transmountain CampusComment on above:Performed By: #### JENNIFER, 45945-8, CMP, 92311-7, 99061-2 #### [facility] ([id number]) [address] [place] [address], [place] [address]VW6 [Moles/Vol]14 mmol/EDub40-86HryIbcldnOhioHealth Pickerington Methodist Hospital Comment on above:Performed By: #### JENNIFER, 18428-0, CMP, 14626-9, 58279-9 #### [facility] ([id number]) [address] [place] [address] 95608Rkprjybpxc [Mass/Vol]3.53 mg/dLHigh0.40-1.00ProThe Hospitals Of Providence Transmountain CampusComment on above:Result Comment: METHOD TRACEABLE TO IDMS STANDARD Performed By: #### JENNIFER, 28717-8, DARLYN, , 56323-7 #### [facility] ([id number]) [address] [place] [address] 90983BCO/1.73 sq M.predicted among non-blacks MDRD (S/P/Bld) [Vol rate/Area]15 mL/min/{1.73_m2}Low>59ProThe Hospitals Of Providence Transmountain CampusComment on above: Result Comment: Reported eGFR is based on the CKD-EPI 2020 equation that does not use a race coefficient.Performed By: #### JENNIFER, 35931-5, DARLYN, , 12806-0 #### [facility] ([id number]) [address] [place] [address] 01395Teneeri [Mass/Vol]115 mg/qKPkgo27-69XrfWgsifiSt. Elizabeth Hospital Comment on above:Performed By: #### JENNIFER, 10355-5, DARLYN, , 80098-0 #### [facility] ([id number]) [address] [place] [address] 91493Ekizrqpfm [Moles/Vol]8.7 mmol/LCritically high3.5-5.0St. [facility] HospitalComment on above:Performed By: #### JENNIFER, 95397-3, DARLYN, , 49586-9 #### [facility] ([id number]) [address] [place] [address] 19004Iuzhoug [Mass/Vol]8.6 g/dLHigh6.0-8.0[facility] Comment on above:Performed By: #### JENNIFER, 49939-4, DARLYN, , 26584-6 #### [facility] ([id number]) [address] [place] [address] 08355Wnewgn [Moles/Vol]134 mmol/WLpbkwy068-160IpoEdvdup Bethel Park HospitalComment on above:Performed By: #### CBCA, 63750-8, CMP, 97076-8, 77379-2 #### [facility] ([id number]) [address] [place] [address], [place], [place] [address]Yznu nitrogen [Mass/Vol]88 mg/dLHigh5-23Pro[facility]ica [facility] Of The Valley HospitalComment on above:Performed By: #### CBCA, 02101-9, CMP, 96943-4, 91127-3 #### [facility] ([id number]) [address] [place] [address], [place], [place] [address]Wthy Metabolic Profon 61-01-5431Mgginep [Mass/Vol]4.4 g/dL Normal3.5-5.2MSan Luis Rey HospitalComment on above:Performed By: #### CRP, PE, C4, GLYHGB, CDP, IMMS, MARCELA, C3, CK, ANAX, URI, ANCACP, VD25, CP #### [facility] [address] [address] Clothing Manager: Lawrence Goff MDAlbumin/Glob Ratio2.0Cdezsw2.0-2.5[facility] Medical CenterComment on above:Performed By: #### CRP, PE, C4, GLYHGB, CDP, IMMS, MARCELA, C3, CK, ANAX, URI, ANCACP, VD25, CP #### [address] [phone] Clothing Manager: Verna Mccainkaline Phos87 U/HTnvlec43-254BkdekMetrohealth Main Campus Medical CenterComment on above:Performed By: #### CRP, PE, C4, GLYHGB, CDP, IMMS, MARCELA, C3, CK, ANAX, URI, ANCACP, VD25, CP #### [facility] [employer] [address] [place] [address] [phone] Clothing Manager: Lawrence Goff MDALT [Catalytic activity/Vol]18 U/XCbkvux51-20 [facility] CenterComment on above:Performed By: #### CRP, PE, C4, GLYHGB, CDP, IMMS, MARCELA, C3, CK, ANAX, URI, ANCACP, VD25, CP #### [place] [phone] Clothing Manager: Liliya Mccain gap [Moles/Vol]15 mmol/LNormal9-16[facility] CenterComment on above:Performed By: #### CRP, PE, C4, GLYHGB, CDP, IMMS, MARCELA, C3, CK, ANAX, URI, ANCACP, VD25, CP #### [place] [address] Clothing Manager: Lawrence Goff MDAST [Catalytic activity/Vol]22 U/PMopigs75-28 [facility] CenterComment on above:Performed By: #### CRP, PE, C4, GLYHGB, CDP, IMMS, MARCELA, C3, CK, ANAX, URI, ANCACP, VD25, CP #### [place] [phone] Clothing Manager: Lawrence Goff MDBilirubin [Mass/Vol]0.2 mg/dLNormal0.00-1.20 [facility] CenterComment on above:Performed By: #### CRP, PE, C4, GLYHGB, CDP, IMMS, MARCELA, C3, CK, ANAX, URI, ANCACP, VD25, CP #### [place] [address] Clothing Manager: ARNOLDO Mccainalcium [Mass/Vol]10.5 mg/dLHigh8.6-10.4[facility] CenterComment on above:Performed By: #### CRP, PE, C4, GLYHGB, CDP, IMMS, MARCELA, C3, CK, ANAX, URI, ANCACP, VD25, CP #### [place] [phone] Clothing Manager: ARNOLDO Mccainhloride [Moles/Vol]110 mmol/IBqwl55-051EaekjMetrohealth Main Campus Medical CenterComment on above:Performed By: #### CRP, PE, C4, GLYHGB, CDP, IMMS, MARCELA, C3, CK, ANAX, URI, ANCACP, VD25, CP #### [facility] [address] [place] [address] [phone] Clothing Manager: ARNOLDO MccainO2 [Moles/Vol]18 mmol/MBfw51-65RblgbMetrohealth Main Campus Medical CenterComment on above:Performed By: #### CRP, PE, C4, GLYHGB, CDP, IMMS, MARCELA, C3, CK, ANAX, URI, ANCACP, VD25, CP #### [address] [phone] Clothing Manager: ARNOLDO Mccainreatinine [Mass/Vol]2.9 mg/dLHigh0.50-0.90[facility] CenterComment on above:Performed By: #### CRP, PE, C4, GLYHGB, CDP, IMMS, MARCELA, C3, CK, ANAX, URI, ANCACP, VD25, CP #### [address] [phone] Clothing Manager: Lawrence Goff MDGFR/1.73 sq M.predicted among non-blacks MDRD (S/P/Bld) [Vol rate/Area]19 mL/min/{1.73_m2}Low>60[facility] Medical CenterComment on above:Result Comment: These results are not intended for [...] or following therapy that affects renal tubular secretion.Performed By: #### CRP, PE, C4, GLYHGB, CDP, IMMS, MARCELA, C3, CK, ANAX, URI, ANCACP, VD25, CP #### [address] [phone] Clothing Manager: Lawrence Goff MDGlucose [Mass/Vol]146 mg/jHMyfw52-34AfflqSan Luis Rey HospitalComment on above:Performed By: #### CRP, PE, C4, GLYHGB, CDP, IMMS, MARCELA, C3, CK, ANAX, URI, ANCACP, VD25, CP #### [address] [phone] Clothing Manager: MICHEL Mccainotassium [Moles/Vol]4.4 mmol/LNormal3.7-5.3 [facility] CenterComment on above:Performed By: #### CRP, PE, C4, GLYHGB, CDP, IMMS, MARCELA, C3, CK, ANAX, URI, ANCACP, VD25, CP #### [place] [address] Clothing Manager: Lawrence Goff MDProtein [Mass/Vol]6.9 g/dLNormal6.6-8.7[facility] CenterComment on above:Performed By: #### CRP, PE, C4, GLYHGB, CDP, IMMS, MARCELA, C3, CK, ANAX, URI, ANCACP, VD25, CP #### [place] [address] Clothing Manager: Lawrence Goff MDSodium [Moles/Vol]143 mmol/VFcblku077-683NkoymMetrohealth Main Campus Medical CenterComment on above:Performed By: #### CRP, PE, C4, GLYHGB, CDP, IMMS, MARCELA, C3, CK, ANAX, URI, ANCACP, VD25, CP #### [address] [phone] Clothing Manager: Lawrence Goff MDUrea nitrogen [Mass/Vol]76 mg/dLHigh6-20[facility] CenterComment on above:Performed By: #### CRP, PE, C4, GLYHGB, CDP, IMMS, MARCELA, C3, CK, ANAX, URI, ANCACP, VD25, CP #### [facility] [address] [place] [address] Clothing Manager: Bert Mccainatine Kinaseon 98-77-7771N[place] [Catalytic activity/Vol]108 U/LReeuap32-802DuxhyMetrohealth Main Campus Medical CenterComment on above:Performed By: #### CRP, PE, C4, GLYHGB, CDP, IMMS, MARCELA, C3, CK, ANAX, URI, ANCACP, VD25, CP #### [address] [phone] Clothing Manager: Bert Mccainatinine,Random Uron 45-45-1176Mdqjcddlft [Mass/Vol]21.1 mg/dLLow28.0-217.0[facility] Medical CenterComment on above:Performed By: #### CRP, PE, C4, GLYHGB, CDP, IMMS, MARCELA, C3, CK, ANAX, URI, ANCACP, VD25, CP #### [address] [address] Clothing Manager: Rikki Mccain D-dimer DDU (PPP) [Mass/Vol]on 01-20-2024 D DIMER<150Normal<255St. [facility] HospitalComment on above:Result Comment: Results <255 ng/mL DDU: The presence of a VTE can safely be excluded with a negative D-Dimer result and Wells score. A negative result doesn't exclude the possibility of DIC. The test be repeated along with other diagnostic tests if the patient's symptoms persist or worsen. [email or web address] By: #### CBCA, 01796-5, CMP, 60839-9, 14152-4 #### [facility] ([id number]) [address] [place] [address] 36041CEZ ( test) Ql (U)on 96-84-2652Mmdd HCG ( test) Ql (U)NegativeNormalNEGProMedica Queen Of The Valley HospitalComment on above: Performed By: #### 2106-3 #### [facility] ([id number]) [address] [place] [address] 67950Gevyjjcfglrzlruig 14-38-2843BeV [Mass/Vol]254 mg/vORwcxip28-241 [facility] CenterComment on above:Performed By: #### CRP, PE, C4, GLYHGB, CDP, IMMS, MARCELA, C3, CK, ANAX, URI, ANCACP, VD25, CP #### [place] [address] Clothing Manager: Lawrence Goff MDIgG [Mass/Vol]935 mg/tZTksqpi056-7303KzsjzMetrohealth Main Campus Medical CenterComment on above:Performed By: #### CRP, PE, C4, GLYHGB, CDP, IMMS, MARCELA, C3, CK, ANAX, URI, ANCACP, VD25, CP #### [place] [address] Clothing Manager: Lawrence Goff MDIgM [Mass/Vol]38 mg/sSVwc19-000XbfjyMetrohealth Main Campus Medical CenterComment on above:Performed By: #### CRP, PE, C4, GLYHGB, CDP, IMMS, MARCELA, C3, CK, ANAX, URI, ANCACP, VD25, CP #### [place] [address] Clothing Manager: Lawrence Goff MDLactic Acidon 73-71-2538Yznptj Acid,Whole Bl1.3 mmol/LNormal0.7-2.1MSan Luis Rey HospitalComment on above:Performed By: #### CRP, PE, C4, GLYHGB, CDP, IMMS, MARCELA, C3, CK, ANAX, URI, ANCACP, VD25, CP #### [facility] [address] [place] [address] [phone] Clothing Manager: Lawrence Goff, MDMAGNESIUMon 89-46-0619Qwrelksrv [Mass/Vol]2.3 mg/dLNormal1.8-2.6ProThe Hospitals Of Providence Transmountain CampusComment on above:Performed By: #### CBCA, 22651-8, CMP, 08370-1, 54197-9 #### [facility] ([id number]) [address] [place] [address] 79634Ozmlmgtkddg 49-96-9800Vmytfefpm [Mass/Vol]55 ng/yCLfykvp78-95 [facility] Medical CenterComment on above:Performed By: #### CRP, PE, C4, GLYHGB, CDP, IMMS, MARCELA, C3, CK, ANAX, URI, ANCACP, VD25, CP #### [facility] [address] [place] [address] Clothing Manager: Lawrence Goff, MDPOTASSIUMon 05-17-7192Irqxqaiye [Moles/Vol]4.8 mmol/LNormal3.5-5.0ProThe Hospitals Of Providence Transmountain CampusComment on above:Performed By: #### 2823-3 #### [facility] ([id number]) [address] [place] [address] 92243IUC, [place] 37-39-0711OOT, Dmskpl24.0 pg/hNPneloj44-12BdpitMetrohealth Main Campus Medical CenterComment on above:Result Comment: SAMPLES FROM PATIENTS ROUTINELY RECEIVING HIGH DOSE BIOTIN THERAPY MAY SHOW FALSELY DEPRESSED RESULTS. ADDITIONAL INFORMATION MAY BE REQUIRED FOR DIAGNOSIS.Performed By: #### CRP, PE, C4, GLYHGB, CDP, IMMS, MARCELA, C3, CK, ANAX, URI, ANCACP, VD25, CP #### [employer] [address] [place] [address] [phone] Clothing Manager: ARNOLDO Mccainalcium [Moles/Vol]1.29 mmol/LNormal1.13-1.33 [facility] Medical CenterComment on above:Performed By: #### CRP, PE, C4, GLYHGB, CDP, IMMS, MARCELA, C3, CK, ANAX, URI, ANCACP, VD25, CP #### [facility] [employer] [address] [place] [phone] Clothing Manager: SARA Mccainodium, Random Uron 35-89-0762Fqguvu (U) [Moles/Vol]134 mmol/LNormalMetrohealth Main Campus Medical CenterComment on above: Result Comment: No normal range established.Performed By: #### CRP, PE, C4, GLYHGB, CDP, IMMS, MARCELA, C3, CK, ANAX, URI, ANCACP, VD25, CP #### [address] [phone] Clothing Manager: Crista Mccain I.cardiac High sensitivity method [Mass/Vol]on HOUR TROP I, HIGH SENSITIVITY<2Normal<16ProMercy Health Allen Hospitalca Queen Of The Valley HospitalComment on above:Performed By: #### 34173-0 #### [facility] ([id number]) [address] [place] [address] [id number] I, HIGH SENSITIVITY2 ng/LNormal<16ProThe Hospitals Of Providence Transmountain CampusComment on above:Performed By: #### CBCA, 85669-4, CMP, 79284-7, 13037-8 #### [facility] ([id number]) [address] [place] [address] [id number] MACROSCOPIC NURon 01-44-3390VVIWMLWIH NURNegativeNormalNEG [facility] HospitalComment on above:Performed By: #### NUM #### [facility] ([id number]) [address] [place] [address] [place] [address]346XSYTD/HGB NURNegativeNoalNEGSt. Elizabeth HospitalComment on above:Performed By: #### NUM #### [facility] ([id number]) [address] [place] [address] [place] 26040ZODUHFR ZIR921 mg/dLAbnoalNEGSt. Elizabeth Hospital Comment on above:Performed By: #### NUM #### [facility] ([id number]) [address] [place] [address] [place] 233[address]SGKSDAA NURNegativeNormalNEGSt. Elizabeth HospitalComment on above:Performed By: #### NUM #### [facility] ([id number]) [address] [place] [address] [place] 04744ZJNNVOVUJ ESTERASE NURNegativeNoalNEGSt. Elizabeth HospitalComment on above:Performed By: #### NUM #### [facility] ([id number]) [address] [place] [address] [place] 53619YXKYZVE NURNegativeNormalNEGSt. Elizabeth HospitalComment on above:Performed By: #### NUM #### [facility] ([id number]) [address] [place] [address] [place] [id number] NUR5.0Crgivy9.0-8.5Pro[facility] HospitalComment on above:Performed By: #### NUM #### [facility] ([id number]) [address] [place] [address] [place] 03710XTTQLUE NURNegativeNormalNEGProThe Hospitals Of Providence Transmountain CampusComment on above:Performed By: #### NUM #### [facility] ([id number]) [address] [place] [address] [place] [address]67QTPEDLOJ GRAVITY NUR1.174Xdbxph8.003-1.035ProThe Hospitals Of Providence Transmountain CampusComment on above:Performed By: #### NUM #### [facility] ([id number]) [address] [place] [address], [place], [place] [address]KQZHHAWXAJFZ NUR0.2 eu/dLNormal<1.1[facility] Comment on above:Performed By: #### NUM #### [facility] ([id number]) [address] [place] [address], [place], [place] [address]Gzio Acidon 14-98-6545Dxmdp [Mass/Vol]6.8 mg/dLHigh2.4-5.7[facility] Campus Medical CenterComment on above:Performed By: #### CRP, PE, C4, GLYHGB, CDP, IMMS, MARCELA, C3, CK, ANAX, URI, ANCACP, VD25, CP #### [place] [id number] Clothing Manager: Lawrence Goff MDUrinalysis w/ Microon [id number] NormalNONEMeVencor HospitalComment on above:Performed By: #### CRP, PE, C4, GLYHGB, CDP, IMMS, MARCELA, C3, CK, ANAX, URI, ANCACP, VD25, CP #### [place] [id number] Clothing Manager: Raissa Mccainirubin, SemiQt,UrNegativeNormalNEGMetrohealth Main Campus Medical CenterComment on above:Performed By: #### CRP, PE, C4, GLYHGB, CDP, IMMS, MARCELA, C3, CK, ANAX, URI, ANCACP, VD25, CP #### [facility] [address] [place], [place] [id number] Clothing Manager: Singh Mccain, UrineNegativeNormalNEGMetrohealth Main Campus Medical CenterComment on above:Performed By: #### CRP, PE, C4, GLYHGB, CDP, IMMS, MARCELA, C3, CK, ANAX, URI, ANCACP, VD25, CP #### [address] [address] Clothing Manager: ARNOLDO MccainastsNoneNormal0-8[facility] Campus Medical CenterComment on above:Result Comment: Reference range defined for non- centrifuged specimen.Performed By: #### CRP, PE, C4, GLYHGB, CDP, IMMS, MARCELA, C3, CK, ANAX, URI, ANCACP, VD25, CP #### [address] [address] Clothing Manager: ARNOLDO Mccainlarity (U)ClearNormalCLEARMetrohealth Main Campus Medical CenterComment on above:Performed By: #### CRP, PE, C4, GLYHGB, CDP, IMMS, MARCELA, C3, CK, ANAX, URI, ANCACP, VD25, CP #### [address] [address] Clothing Manager: ARNOLDO Mccainolor (U)YellowNormalYSamaritan HospitalComment on above:Performed By: #### CRP, PE, C4, GLYHGB, CDP, IMMS, MARCELA, C3, CK, ANAX, URI, ANCACP, VD25, CP #### [address] [phone] Clothing Manager: Lawrence Goff MDEpithelial cells LM Ql (Urine sed)NoneNormal0-5 [facility] Medical CenterComment on above:Performed By: #### CRP, PE, C4, GLYHGB, CDP, IMMS, MARCELA, C3, CK, ANAX, URI, ANCACP, VD25, CP #### [address] [phone] Clothing Manager: Lawrence Goff MDGlucose Ql (U)NegativeNormalNEGMetrohealth Main Campus Medical CenterComment on above:Performed By: #### CRP, PE, C4, GLYHGB, CDP, IMMS, MARCELA, C3, CK, ANAX, URI, ANCACP, VD25, CP #### [address] [phone] Clothing Manager: Mike Mccainones Ql (U)NegativeNormalNEGMetrohealth Main Campus Medical CenterComment on above:Performed By: #### CRP, PE, C4, GLYHGB, CDP, IMMS, MARCELA, C3, CK, ANAX, URI, ANCACP, VD25, CP #### [place] [phone] Clothing Manager: Lawrence Goff MDLeukocyte esterase Test strip Ql (U)Negative NormalNEGMetrohealth Main Campus Medical CenterComment on above:Performed By: #### CRP, PE, C4, GLYHGB, CDP, IMMS, MARCELA, C3, CK, ANAX, URI, ANCACP, VD25, CP #### [place] [address] Clothing Manager: Manohar Mccain,UrNegativermVeterans Health AdministrationComment on above:Performed By: #### CRP, PE, C4, GLYHGB, CDP, IMMS, MARCELA, C3, CK, ANAX, URI, ANCACP, VD25, CP #### [place] [phone] Clothing Manager: MICHEL Mccain,Ur5.4Ienhqo5.0-8.0MerMartin Luther King Jr. - Harbor HospitalComment on above:Performed By: #### CRP, PE, C4, GLYHGB, CDP, IMMS, MARCELA, C3, CK, ANAX, URI, ANCACP, VD25, CP #### [place] [id number] Clothing Manager: Soledad Mccain Ql (U)NegativeNormalNEGMetrohealth Main Campus Medical CenterComment on above:Performed By: #### CRP, PE, C4, GLYHGB, CDP, IMMS, MARCELA, C3, CK, ANAX, URI, ANCACP, VD25, CP #### [facility] [address] [place] [phone] Clothing Manager: Rigoberto Mccain. [place],Ur1.976Qgfjmx2.005-1.030[facility] Medical CenterComment on above:Performed By: #### CRP, PE, C4, GLYHGB, CDP, IMMS, MARCELA, C3, CK, ANAX, URI, ANCACP, VD25, CP #### [address] [phone] Clothing Manager: Rosmery Mccain RBC's0 TO 5Tetbew8-6ScffcMetrohealth Main Campus Medical CenterComment on above:Result Comment: Reference range defined for non- centrifuged specimen.Performed By: #### CRP, PE, C4, GLYHGB, CDP, IMMS, MARCELA, C3, CK, ANAX, URI, ANCACP, VD25, CP #### [address] [phone] Clothing Manager: Rosmery Mccain WBC's2 TO 8Aqabkx5-4UcrrpMetrohealth Main Campus Medical CenterComment on above:Performed By: #### CRP, PE, C4, GLYHGB, CDP, IMMS, MARCELA, C3, CK, ANAX, URI, ANCACP, VD25, CP #### [address] [phone] Clothing Manager: Lawrence Goff MDUrobilinogen,UrNormalNormal0.0-1.0[facility] Medical CenterComment on above:Performed By: #### CRP, PE, C4, GLYHGB, CDP, IMMS, MARCELA, C3, CK, ANAX, URI, ANCACP, VD25, CP #### [address] [phone] Clothing Manager: Lawrence Goff MDVenous Blood Gaseson 33-81-5384Txsp Temp.37.0 NormalMetrohealth Main Campus Medical CenterComment on above:Performed By: #### CRP, PE, C4, GLYHGB, CDP, IMMS, MARCELA, C3, CK, ANAX, URI, ANCACP, VD25, CP #### [facility] [address] [place] [phone] Clothing Manager: Francis Mccain Hgb4.1 %Normal0-5[facility] Medical CenterComment on above:Result Comment: Reference Range: Non-Smokers 0-2% Average Smoker 2-4% Heavy Smoker <10%Performed By: #### CRP, PE, C4, GLYHGB, CDP, IMMS, MARCELA, C3, CK, ANAX, URI, ANCACP, VD25, CP #### [facility] [address] [place] [address] Clothing Manager: Lawrence Goff MDFIO2INFORMATION NOT PROVIDEDNormalMetrohealth Main Campus Medical CenterComment on above:Performed By: #### CRP, PE, C4, GLYHGB, CDP, IMMS, MARCELA, C3, CK, ANAX, URI, ANCACP, VD25, CP #### [facility] [address] [place], [place] [phone] Clothing Manager: Lawrence Goff MDHCO3 (Bld) [Moles/Vol]19.9 mmol/LBtk33-31LwhhfMetrohealth Main Campus Medical CenterComment on above:Performed By: #### CRP, PE, C4, GLYHGB, CDP, IMMS, MARCELA, C3, CK, ANAX, URI, ANCACP, VD25, CP #### [facility] [address] [place] [address] Clothing Manager: Lawrence Goff MDNegative Base Excess4.3 mmol/LHigh0.0-2.0[facility] Medical CenterComment on above:Performed By: #### CRP, PE, C4, GLYHGB, CDP, IMMS, MARCELA, C3, CK, ANAX, URI, ANCACP, VD25, CP #### [address] [phone] Clothing Manager: Lawrence Goff MDOxygen saturation in Blood98.3 %High60.0-85.0 [facility] Medical CenterComment on above:Performed By: #### CRP, PE, C4, GLYHGB, CDP, IMMS, MARCELA, C3, CK, ANAX, URI, ANCACP, VD25, CP #### [address] [phone] Clothing Manager: Michel MccainCO235.1 mm BgPiz27-93BxvujMetrohealth Main Campus Medical CenterComment on above:Performed By: #### CRP, PE, C4, GLYHGB, CDP, IMMS, MARCELA, C3, CK, ANAX, URI, ANCACP, VD25, CP #### [address] [phone] Clothing Manager: Lawrence Goff [facility] (Bld)7.371 [pH]Normal7.320-7.420[facility] Medical CenterComment on above:Performed By: #### CRP, PE, C4, GLYHGB, CDP, IMMS, MARCELA, C3, CK, ANAX, URI, ANCACP, VD25, CP #### [address] [phone] Clothing Manager: Michel MccainO2137.0 mm BtWqli83-19VkpduMetrohealth Main Campus Medical CenterComment on above:Performed By: #### CRP, PE, C4, GLYHGB, CDP, IMMS, MARCELA, C3, CK, ANAX, URI, ANCACP, VD25, CP #### [address] [phone] Clothing Manager: Lawrence Goff MDVitamin D 25 OHon 52-24-7579Sgrdatq D 25 OH28.5 ng/mLLow30.0-100.0[facility] Medical CenterComment on above:Result Comment: Reference Range: Vitamin D status Range Deficiency <20 ng/mL Mild Deficiency 20-30 ng/mL Sufficiency 30-100 ng/mL Toxicity >100 ng/mLPerformed By: #### CRP, PE, C4, GLYHGB, CDP, IMMS, MARCELA, C3, CK, ANAX, URI, ANCACP, VD25, CP #### [facility] [place] [address] Clothing Manager: MARGY MccainR CHEST 1 VWon 11-11-3380NR CHEST 1 VWXR CHEST 1 VW XR CHEST 1 VW History: Near syncope. One view study. Comparison: None Impression: * No significant interval change.No focal airspace disease or infiltrate is appreciated. No congestive features or large effusion. No pneumothorax. Finalized by Keisha Conway MD on 01/20/2024 1:47 PMNormalProMedica Queen Of The Valley Hospital Erythrocyte distribution width Auto (RBC) [Ratio]on 67-48-5648Tgfuxnyfvfb distribution width (RBC) [Ratio]13.8 %11.0-15.0[facility] Estimated glomerular filtration rate (GFR) non- Americanon 11-05-2023 GFR/1.73 sq M.predicted among non-blacks MDRD (S/P/Bld) [Vol rate/Area]35 mL/min/{1.73_m2}>=60[facility] HospitalGlobulin Calc (S) [Mass/Vol]on 86-53-6511Zvxtqnlu (S) [Mass/Vol]3.7 g/dLOhiohealth Van Wert HospitalHematocrit Auto (Bld) [Volume fraction]on 83-25-2964Xhmweujvap (Bld) [Volume fraction]36.6 %36.0-48.0[facility] HospitalHemoglobin [Mass/volume] in Bloodon 19-02-8063Kuskskwlfr (Bld) [Mass/Vol]12.1 g/dL12.0-16.0 [facility] HospitalLaboratory - Chemistry and Chemistry - challengeon 92-34-6254Ewdolkc [Mass/Vol]3.9 g/dL3.4-5.0[facility] HospitalALP [Catalytic activity/Vol]127 U/B03-038YovamzqewOhiohealth Van Wert HospitalALT [Catalytic activity/Vol]19 U/V38-45DpqgtjtfaOhiohealth Van Wert HospitalAST [Catalytic activity/Vol]15 U/J60-37FgdpcytorOhiohealth Van Wert Hospital Bilirubin [Mass/Vol]0.2 mg/dL0.2-1.0[facility] HospitalCalcium [Mass/Vol]9.3 mg/dL8.5-10.1FMagruder Memorial HospitalChloride [Moles/Vol] 104 mmol/J35-206KwcyizreuOhiohealth Van Wert HospitalCO2 [Moles/Vol]22.6 mmol/L 21.0-32.0[facility] HospitalCreatinine [Mass/Vol]1.57 mg/dL 0.55-1.02[facility] HospitalGFR/1.73 sq M.predicted MDRD (S/P/Bld) [Vol rate/Area]42 mL/min/{1.73_m2}>=60[facility] HospitalGlucose [Mass/Vol]167 mg/qY46-417PswpoaygrOhiohealth Van Wert HospitalMagnesium [Mass/Vol] 1.9 mg/dL1.8-2.4FMagruder Memorial HospitalPotassium [Moles/Vol]4.7 mmol/L 3.5-5.1FMagruder Memorial HospitalProtein [Mass/Vol]7.6 g/dL6.4-8.2 [facility] Hospitalodium [Moles/Vol]141 mmol/J800-436BofwrgbnuOhiohealth Van Wert HospitalUrate [Mass/Vol]5.9 mg/dL2.6-6.0[facility] HospitalUrea nitrogen [Mass/Vol]30.0 mg/dL7.0-18.0[facility] HospitalUrea nitrogen/Creatinine [Mass ratio]19.1 mg/mgOhiohealth Van Wert HospitalBilirubin Ql (U)NegativeNEGATIVEOhiohealth Van Wert Hospital Glucose (U) [Mass/Vol]NegativeNEGATIVEOhiohealth Van Wert HospitalKetones Ql (U)NegativeNEGATIVEOhiohealth Van Wert HospitalpH (U)5.5 [pH]5.0-9.0 [facility] Hospitalpecific gravity (U) [Rel density]1.025 1.005-1.025Ohio[facility] HospitalUrobilinogen Qn (U)0.2 {Nikolas'U}/dL0.2-1.0[facility] HospitalLaboratory - Specimen informationon 27-48-6292Lhiipodtzn (U)CLEARCLEARFMagruder Memorial HospitalColor (U)LT. YELLOWYELLOWOhiohealth Van Wert HospitalLaboratory - Urinalysison 82-64-4449Gfwrtbsnr esterase Test strip Ql (U)NegativeNEGATIVE [facility] HospitalNitrite Ql (U)NegativeNEGATIVEOhiohealth Van Wert HospitalProtein (U) [Mass/Vol]11.4 mg/dL<=11.9[facility] HospitalProtein Ql (U)NegativeNEG/TRACEOhiohealth Van Wert Hospital Leukocytes [#/volume] corrected for nucleated erythrocytes in Blood by Automated counon 10-13-8442SJN corrected for nucl RBC Auto (Bld) [#/Vol]7.5 10 3/uL 4.0-11.0[facility] HospitalMCH Auto (RBC) [Entitic mass]on 99-90-2638XGQ (RBC) [Entitic mass]30.7 pg26.7-34.0[facility] HospitalMCHC Auto (RBC) [Mass/Vol]on 63-03-3321ZGJJ (RBC) [Mass/Vol]33.1 g/dL 29.9-35.2FMagruder Memorial HospitalMCV Auto (RBC) [Entitic vol]on 20-94-4257SAX (RBC) [Entitic vol]92.9 fL81.0-99.0[facility] HospitalNo Panel Informationon 27-72-702749398991-Xogbozj Vitamin D Total36.3 ng/mL [facility] HospitalComment on above:<20 ng/mL Vit D - <30 ng/mL Vit D sncousogbqxs40-081 ng/mL Vit D sufficient>100 ng/mL Potential ToxicityParathyroid Hormone (Intact)53 pg/oT12-10XaqvhlqzjOhiohealth Van Wert HospitalComment on above:Performed at: [address] [id number] Director: Peng Wing PhD, Phone: [phone] Phosphorus Level4.0 mg/dL2.6-4.7FMagruder Memorial HospitalUrine Occult BloodNegativeNEGATIVEOhiohealth Van Wert HospitalUrine Random Creatinine 132.61 mg/dL20.00-300.00[facility] HospitalPlatelet mean volume Auto (Bld) [Entitic vol]on 27-41-7379Oidiytgi mean volume (Bld) [Entitic vol]9.3 fL9.5-13.5FMagruder Memorial HospitalPlatelets Auto (Bld) [#/Vol]on 51-12-4454Dqvtbxgcs (Bld) [#/Vol]273 10 3/cU557-968JqdkufvlrOhiohealth Van Wert HospitalRBC Auto (Bld) [#/Vol]on 19-51-8450PTS (Bld) [#/Vol]3.94 10 6/uL4.20-5.40 [facility] Hospitalerum or plasma albumin/globulin mass ratioon 66-99-9661Sxmnrln/Globulin [Mass ratio]1.1 {ratio}[facility] Hospitalerum or plasma anion gap determinationon 95-54-3017Cored gap [Moles/Vol] 19.1 mmol/LFMagruder Memorial HospitalUrine protein/creatinine ratioon 71-34-0363Gebswyj/Creatinine (U) [Ratio]0.09[facility] GLYCOHEMOGLOBIN A1Con 80-34-9032XDR RECOMMENDATIONSEE BELOWNoMemorial Health SystemComment on above:Result Comment: ADA RECOMMENDED LIMIT 4.0 - 6.0 ADA THERAPEUTIC TARGET < 7.0 ACTION SUGGESTED > 7.0Performed By: #### A1C #### [facility] [address] [address] [address] Mitesh AnthonyGlucose [Mass/Vol]137 mg/dLWilson Street HospitalComment on above:Performed By: #### A1C #### [facility] [address] [address] [address] Mitesh AnthonyHbA1c (Bld) [Mass fraction]6.4 %Critically high4.5-6.2The St. Vincent HospitalComment on above:Performed By: #### A1C #### [facility] [address] [place] [address] Dr. Mitesh SawyerALBUMIN, RAND URon 73-79-5090hCZA3.7 mg/LNormal<=30.0The St. Vincent HospitalComment on above:Performed By: #### MALBR #### [facility] [address] [place] [address] Dr. Mitesh AnthonyPROF 14(COMP METB)on 05-77-6975Xaxmimk [Mass/Vol]4.1 g/dLNormal 3.4-5.0The [facility] HospitalComment on above:Performed By: #### TSHRFT4, CMP #### [facility] [address] [place] [address] Dr. Mitesh AnthonyAlbumin/Globulin [Mass ratio]1.1 {ratio}NormalThe St. Vincent HospitalComment on above:Performed By: #### TSHRFT4, CMP #### [facility] [address] [place] [address] Dr. Mitesh Velarde [Catalytic activity/Vol]89 U/RNmoysp56-844Qam St. [facility] HospitalComment on above:Performed By: #### TSHRFT4, CMP #### [facility] [address] [place] [address] Dr. Mitesh Alberto [Catalytic activity/Vol]26 U/WIpxzcz42-54Mrx [facility]. [facility] HospitalComment on above:Performed By: #### TSHRFT4, CMP #### [facility] [address] [place] [address] Dr. Mitesh Good gap [Moles/Vol]11.3 mmol/LNormalThe [facility] on above:Performed By: #### TSHRFT4, CMP #### [facility] [address] [place] [address] Dr. Mitesh Richardson [Catalytic activity/Vol]18 U/BCiwzdj40-01Aly St. [facility] HospitalComment on above:Performed By: #### TSHRFT4, CMP #### [facility] [address] [place] [address] Dr. Mitesh AnthonyBilirubin [Mass/Vol]0.2 mg/dLNormal0.2-1.0The [facility] Comment on above:Performed By: #### TSHRFT4, CMP #### [facility] [address] [address] [address] Mitesh AnthonyCalcium [Mass/Vol]9.4 mg/dLNormal8.5-10.1The [facility] Comment on above:Performed By: #### TSHRFT4, CMP #### [facility] [address] [address] [address] Mitesh AnthonyChloride [Moles/Vol]106 mmol/GZxslzl84-003Oxw [facility] Comment on above:Performed By: #### TSHRFT4, CMP #### [facility] [address] [place] [address] Dr. Mitesh AnthonyCO2 [Moles/Vol]30.3 mmol/ZDhogqr30.0-32.0[facility] Comment on above:Performed By: #### TSHRFT4, CMP #### [facility] [address] [place] [address] Dr. Mitesh AnthonyCreatinine [Mass/Vol]1.37 mg/dLCritically high0.55-1.02The [facility] HospitalComment on above:Performed By: #### TSHRFT4, CMP #### [facility] [address] [place] [address] Dr. Sagastume ChangEGFR-AF DIVUTFOV49 mL/min/1.79x8Zoahdsegqg low>=60The St. Vincent HospitalComment on above:Performed By: #### TSHRFT4, CMP #### [facility] [address] [place] [address] Dr. Sagastume ChangEGFR-NON AF YGLJQTDT43 mL/min/1.77b9Nhcvvyhdat low>=60The [facility] HospitalComment on above:Performed By: #### TSHRFT4, CMP #### [facility] [address] [place] [address] Dr. Mitesh AnthonyGlobulin (S) [Mass/Vol]3.6 g/dLNormalThe St. Vincent HospitalComment on above:Performed By: #### TSHRFT4, CMP #### [facility] [address] [address] [address] Mitesh AnthonyGlucose [Mass/Vol]97 mg/aPFhrezx87-735WenOhiohealth Nelsonville Health Center Comment on above:Performed By: #### TSHRFT4, CMP #### [facility] [address] [place] [address] Dr. Mitesh AnthonyPotassium [Moles/Vol]3.6 mmol/LNormal3.5-5.1The [facility] Comment on above:Performed By: #### TSHRFT4, CMP #### [facility] [address] [place] [address] Dr. Mitesh AnthonyProtein [Mass/Vol]7.7 g/dLNormal6.4-8.2[facility] Comment on above:Performed By: #### TSHRFT4, CMP #### [facility] [address] [place] [address] Dr. Mitesh AnthonySodium [Moles/Vol]144 mmol/XPskaug679-848GbaOhiohealth Nelsonville Health Center Comment on above:Performed By: #### TSHRFT4, CMP #### [facility] [address] [place] [address] Dr. Mitesh AnthonyUrea nitrogen [Mass/Vol]29.0 mg/dLCritically high7.0-18.0[facility] CenterComment on above:Performed By: #### TSHRFT4, CMP #### [facility] [address] [place] [address] Dr. Mitesh Branch nitrogen/Creatinine [Mass ratio]21.2 mg/mgNormalThe St. Vincent HospitalComment on above:Performed By: #### TSHRFT4, CMP #### [facility] [address] [place] [address] Dr. Mitesh Lloyd W/ REFLEX TO FT4on 46-23-8700SDE6.449 uIU/mLNormal0.358-3.740 [facility] CenterComment on above:Performed By: #### LIPID, CMP #### [facility] [address] [address] [address] Mitesh AnthonyKESSLER INSTITUTE [facility] SURG PATH SLIDE REVIEWon 69-79-9257MVPZ REPORTNormal [facility] on above:Order Comment: Specimen Type: SLIDE Ordering Facility: [facility] Outside Review Address: , ,Result Comment: Surgical Pathology Report Case: [id number] Authorizing Provider: Kaden Golden MD Collected: 08/07/2022 09:12 AM Ordering Location: [facility] Received: 08/07/2022 09:15 AM Pathologist: Albaro Murguia MD Specimen: SLIDE(S), 18 SLIDES, [id number] By: #### [id number] #### [facility] CLIA [id number] [address] [place] [address] [place] STATES OF AMERICACLINICAL HISTORYPrior core biopsy diagnosis of ADH.NormalCleveland Clinic Mercy Hospital on above:Order Comment: Specimen Type: SLIDE Ordering Facility: [facility] Outside Review Address: , ,Performed By: #### [id number] #### [facility] CLIA [id number] [address] [place] [address] [place] OF AMERICADIAGNOSIS COMMENTNormal [facility] on above:Order Comment: Specimen Type: SLIDE Ordering Facility: [facility] Outside Review Address: , ,Result Comment: The overall degree of atypia falls short of an unequivocal diagnosis of ductal carcinoma in-situ (DCIS).Performed By: #### [id number] #### [facility] CLIA [id number] [address] [place] [address] [place] OF AMERICAFINAL DIAGNOSISNormal [facility] on above:Order Comment: Specimen Type: SLIDE Ordering Facility: [facility] Outside Review Address: , ,Result Comment: Breast, left, at 3:00, excisional biopsy ([id number]; 07/12/2022): ---Atypical intraductal proliferation predominantly involving a fibroadenomatoid nodule. ---Background breast with previous biopsy site. ---Please see comment. Performed By: #### [id number] #### [facility] CLIA [id number] [address] [place], [place] [address]FINAK PERFORMING LABNormal [facility] Medical Centerment on above:Order Comment: Specimen Type: SLIDE Ordering Facility: Outside Review Address: , ,Result Comment: Diagnostic interpretation performed at [facility], [address] [place], [place] [id number] CLIA# [id number] Appliance Repairer: Akshat Nguyen M.D.Performed By: #### [id number] #### [facility] CLIA [id number] [address] [place] [address] AMERICAConsultation Noteon 15-21-1186Srftyzbybake [id number]#1.00CD:127 [facility] HospitalCNOVSPon 21-74-8502ACOPJNWgoru (SP) Office (HEMASA) Humaira POLOLINDSEY ([id number]) 1970 F Date Time Provider Department 08/02/22 3:30 PM KADEN GOLDEN During your visit today, we recorded the following information about you: Temperature Pulse Respiration Blood pressure 97.5 degrees 74/minute 16/minute 136/85 Weight Height 32.2 kg 1.321 m Kaden Golden MD 08/02/2022 4:01 PM Signed PATIENT NAME: Lindsey Kelleychristine CLINIC NO.: [id number] ATTENDING PHYSICIAN: Kaden Golden MD DATE OF [...] old year old (more content not included)... NormalWood County HospitalCNPNon 10-75-3930BADEVmfxneiim (NCCAP) LINDSEY POLO ([id number]) 1970 F Date Time Provider Department 08/02/22 KADEN GOLDEN NCCAP During your visit today, we recorded the following information about you: Luis Enrique Szymanski 08/02/2022 3:50 PM Signed Request sent to [facility] General pathology to send to [facility] for [...] 10 mg by mouth once daily. - lisinopril-hydroCHLOROthiazide (PRINZIDE, ZESTORETIC) 20-25 mg per tablet Take 1 tablet by mouth once daily. - KLOR-CON M20 20 mEq tablet TAKE 1 TABLET BY MOUTH EVERY DAY WITH FOOD FOR 90 DAYS Problem List As Of Date: 08/02/2022 (None) Encounter Status:Closed by LUIS ENRIQUE SZYMANSKI on 08/02/22NoMercy Health St. 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 What to do next Someone Will Contact You Regarding These Appointments [facility] External Ambulatory Referral, Geographic proximity, Oncology, [facility], or [facility], [facility], 07/21/22 13:48:00 EST, Ductal carcinoma in situ (DCIS) of left breast Medications What How Much When Instructions Unchanged alendronate (alendronate 35 mg Tab) 1 Tablets By Mouth Every week Unchanged amlodipine (amLODIPine 10 mg Tab) 1 Tablets By Mouth Every day Unchanged hydrochlorothiazide-lisinopril (hydrochlorothiazide-lisinopril 25 mg- 20 mg Tab) 1 TabletsBy Mouth Every day Unchanged levothyroxine (levothyroxine 25 mcg (0.025 mg) Tab) 1 Tablets By Mouth Every day Unchanged potassium chloride (Potassium Chloride (Rdh-Dxxy-Mvc M20) 20 mEq oral tablet, extended release) [...] are no longer receiving treatment for. Hypokalemia [facility] Surgery Office/Clinic Noteon 89-43-6182Eucivnl Surgery Office/Clinic NoteChief Complaint post operative follow up HPI Staff 9 day post operative follow up post needle localized left breast lumpectomy. Denies pain, no use ofpain medication. Denies bleeding, drainage or significant bruising. [...] estrogen receptor modulator; call with problems/questions. Ordered: [facility] External Ambulatory Referral 2. Fibroadenoma of left [...] mcg= 1 tab(s), Oral, Daily Potassium Chloride (Hez-Rrfq-Wdn M20) 20 mEq oral tablet, extended release, [...] mRNA BNT-162b2 vax 09/11/2020 Recorded 2022-06-20: TPV40 [facility] HospitalComment on above:Result Comment: Electronically Signed By: TEODORO MALIK, Christopher Ragland\Date and Time Signed: 07/21/22 15:46 ESTRAD - Ultrasound Reporton [id number] - Ultrasound Report [id number]#1.00CD:127NormMcKitrick HospitalUS GUIDE LOCAL BREAST LTon 13-60-2269QD GUIDE LOCAL BREAST LT Begin Addendum #1 COLLECTED DATE/TIME: 07/12/2022 12:00 EST Final Diagnosis Report for [place] LEFT BREAST MASS 3 O'CLOCK POSITION; [...] Complications: None. IMPRESSION: 1. Technically successful hookwire localization.NormalThe [facility] Pathology Noteon 56-93-2268Cioaikfoc Note [id number]#1.00CD:[address] [place], [place] [address]Operative Reporton 38-16-1646Dgsbknmko Report [id number]#1.00CD:[address] [place], [place] [address]RAD - Ultrasound Reporton 63-04-9798IQN - Ultrasound Report [id number]#1.00CD:127[facility] HospitalUS BREAST SPECIMENon 32-31-5430DD BREAST SPECIMENEXAM: US BREAST SPECIMEN HISTORY: Infiltrating duct carcinoma of breast COMPARISON: Ultrasound breast biopsy 06/05/2022, ultrasound-guided wire localization 07/12/2022 TECHNIQUE: Ultrasound evaluation of surgical specimen. FINDINGS: Biopsy marker clip is present within the small soft tissue specimen. IMPRESSION: 1. Biopsy marker clip is present within the surgical specimen. Electronically authenticated by: SHANI THOMAS Date: 2022-07-12 13:51[address] HospitalECG 12-Leadon 90-83-2091YGU 12-Lead [id number]#1.00CD:127[facility] HospitalLab Reportson 13-13-0482Ngp Reports [id number]#1.00CD:[address] [place], [place] [address]PROF CHEM 8 (BAS METB)on 36-31-3007Ejicn gap [Moles/Vol]13.7 mmol/LNormal The [facility]. [facility] HospitalComment on above:Performed By: #### BMP #### [facility] [address] [address] [address] Mitesh AnthonyCalcium [Mass/Vol]9.6 mg/dLNormal8.5-10.1[facility] Comment on above:Performed By: #### BMP #### [facility] [address] [address] [address] Mitesh AnthonyChloride [Moles/Vol]108 mmol/LCritically mnlg88-523Rme St. [facility] HospitalComment on above:Performed By: #### BMP #### [facility] [address] [address] [address] Mitesh AnthonyCO2 [Moles/Vol]27.5 mmol/DAplagq00.0-32.0[facility] Comment on above:Performed By: #### BMP #### [facility] [address] [place] [address] Dr. Mitesh AnthonyCreatinine [Mass/Vol]1.36 mg/dLCritically high0.55-1.02The [facility] HospitalComment on above:Performed By: #### BMP #### [facility] [address] [place] [address] Dr. Mitesh DuranGFR-AF VMTOLSDS65 mL/min/1.94d6Wnqncxfsbn low>=60The [facility] HospitalComment on above:Performed By: #### BMP #### [facility] [address] [place] [address] Dr. Mitesh DuranGFR-NON AF IBSXERNR87 mL/min/1.51j8Ptttvcgqiv low>=60The [facility] HospitalComment on above:Performed By: #### BMP #### [facility] [address] [address] [address] Mitesh AnthonyGlucose [Mass/Vol]132 mg/dLCritically lcgc04-834Nyn St. [facility] HospitalComment on above:Performed By: #### BMP #### [facility] [address] [address] [address] Mitesh AnthonyPotassium [Moles/Vol]4.2 mmol/LNormal3.5-5.1[facility] Comment on above:Performed By: #### BMP #### [facility] [address] [address] [address] Mitesh Herreraum [Moles/Vol]145 mmol/KAcpdkf655-127Owr [facility] Comment on above:Performed By: #### BMP #### [facility] [address] [address] [address] Mitesh Branch nitrogen [Mass/Vol]32.0 mg/dLCritically high7.0-18.0[facility] CenterComment on above:Performed By: #### BMP #### [facility] [address] [address] [address] Mitesh Branch nitrogen/Creatinine [Mass ratio]23.5 mg/mgNoalThCherrington HospitalComment on above:Performed By: #### BMP #### [facility] [address] [address] [address] Mitesh Julio for Procedure/Surgeryon 83-25-5928Cekxgjl for Procedure/[id number]#1.00CD:[address] [place], [place] [address]Outside Mammographyon 75-73-7071Rgluijy Mammography [id number]#1.00CD:[address] [place], [place] [address]Outside [id number]#1.00CD:[address] [place], [place] [address]Pathology Noteon 87-62-5198Ehidwetae Note [id number]#1.00CD:[address] [place], [place] [address]RAD - Ultrasound Reporton 54-51-6968HQE - Ultrasound Report [id number]#1.00CD:[address] [place], [place] [address]US VAC ASST BX BREAST LT W CLIPon 85-46-3326SA VAC ASST BX BREAST LT W CLIP Begin Addendum #1 COLLECTED DATE/TIME: 06/05/2022 14:29 EST Final Diagnosis Report for [facility] [place], [place] LEFT BREAST 2 O'CLOCK MASS, ULTRASOUND-GUIDED [...] Sandra that report was present in office (BM). Original Report EXAM: US VAC ASST BX [...] will be provided after pathology results are available.NormalThe St. Vincent HospitalMAMMO POST BIOPSY LEFTon 32-03-2209YJPAR POST BIOPSY LEFTPatient: LINDSEY POLO Exam Date: 06/05/2022 : 1970 Gender:F Ordering : DR JANIE TOSCANO . Admission #: [id number] Family : Order #: [id number] CLICK HERE TO VIEW EXAM RADIOLOGY REPORT [...] by: Shani Thomas M.D. on 06/05/2022 at 15:59[address] HospitalMG MAMM LT DIAG FUon 12-78-6063RT MAMM LT DIAG FUPatient: [facility] Exam Date: 05/18/2022 : 1970 Gender:F Ordering : DR JANIE TOSCANO . Admission #: [id number] Family : Order #: [id number] CLICK HERE TO VIEW EXAM RADIOLOGY REPORT [...] Treatments None Family Cancers None LOCATION: [facility] BREAST COMPOSITION: Heterogeneously dense,which may obscure [...] by: Shani Thomas M.D. on 05/18/2022 at 14:31[address] HospitalUS BREAST LEFT LIMITEDon 01-24-4464WX BREAST LEFT LIMITEDPatient: [facility]IND[facility] Exam Date: 05/18/2022 : 1970 Gender:F Ordering : DR JANIE TOSCANO . Admission #: [id number] Family : Order #: [id number] CLICK HERE TO VIEW EXAM RADIOLOGY REPORT [...] Treatments None Family Cancers None LOCATION: [facility] BREAST COMPOSITION: Heterogeneously dense,which may obscure [...] by: Shani Thomas M.D. on 05/18/2022 at 14:31[address] HospitalGLYCOHEMOGLOBIN A1Con 46-63-6834EPH RECOMMENDATIONSEE BELOWWilson Street HospitalComment on above:Result Comment: ADA RECOMMENDED LIMIT 4.0 - 6.0 ADA THERAPEUTIC TARGET < 7.0 ACTION SUGGESTED > 7.0Performed By: #### A1C #### [facility] [address] [address] [address] Mitesh AnthonyGlucose [Mass/Vol]143 mg/dLWilson Street HospitalComment on above:Performed By: #### A1C #### [facility] [address] [address] [address] Mitesh AnthonyHbA1c (Bld) [Mass fraction]6.6 %Critically high4.5-6.2The St[facility] HospitalComment on above:Performed By: #### A1C #### [facility] [address] [address] [address] Mitesh HuitronID PROFILEon 45-47-3894JKKD-HDL RATIO NORMSKettering Health Behavioral Medical CenterComment on above:Result Comment: 3.3 - 4.4 LOW RISK 4.4 - 7.1 AVERAGE RISK 7.1 - 11.0 MODERATE RISK >11.0 HIGH RISKPerformed By: #### LIPID, CMP #### [facility] [address] [address] [address] Mitesh AnthonyCholesterol [Mass/Vol]234 mg/dLCritically high<=200[facility] CenterComtr[facility] on above:Performed By: #### LIPID, CMP #### [facility] [address] [place] [address] Dr. Mitesh AnthonyCholesterol in HDL [Mass/Vol]108 mg/dLCritically qcsl75-57Khc St[facility] HospitalComtrinity health [facility] on above:Performed By: #### LIPID, CMP #### [facility] [address] [address] [address] Mitesh AnthonyCholesterol in LDL [Mass/Vol]111.2 mg/dLWilson Street HospitalComtrinity health ann [facility] hospital on above:Performed By: #### LIPID, CMP #### [facility] [address] [address] [address] Mitesh Bessesterjoselo.total/Cholesterol in HDL [Mass ratio]2.2 {ratio} NormalOhiohealth Nelsonville Health CenterComtrinity health [facility] on above:Performed By: #### LIPID, CMP #### [facility] [address] [place] [address] Dr. Mitesh AnthonyHDL NORMAL> or = 60 mg/dl - LOW CARDIOVASCULAR RISK <40 mg/dl - HIGH CARDIOVASCULAR RISKWilson Street HospitalComtrinity health [facility] on above:Performed By: #### LIPID, CMP #### [facility] [address] [place] [address] Dr. Mitesh AnthonyLDL CALC NORMALSEE [facility] HospitalComment on above:Result Comment: <100 mg/dl OPTIMAL 100 - 129 mg/dl NEAR OR ABOVE OPTIMAL 130 - 159 mg/dl BORDERLINE HIGH 160 - 189 mg/dl HIGH >190 mg/dl VERY HIGH Performed By: #### LIPID, CMP #### [facility] [address] [place] [address] Dr. Mitesh AnthonyTriglyceride [Mass/Vol]74 mg/dLNormal<=150[facility] Comment on above:Performed By: #### LIPID, CMP #### [facility] [address] [place] [address] Dr. Mitesh AnthonyVLDL CALC14.8 mg/dLNormalThe St. Vincent HospitalComment on above: Performed By: #### LIPID, CMP #### [facility] [address] [place] [address] Dr. Mitesh Diaz 14(COMP METB)on 62-56-8948Rayfukh [Mass/Vol]4.2 g/dLNormal 3.4-5.0The St[facility] HospitalComment on above:Performed By: #### LIPID, CMP #### [facility] [address] [place] [address] Dr. Mitesh AnthonyAlbumin/Globulin [Mass ratio]1.2 {ratio}NormalThe St. Vincent HospitalComment on above:Performed By: #### LIPID, CMP #### [facility] [address] [place] [address] Dr. Mitesh Velarde [Catalytic activity/Vol]114 U/YIklezg39-173Pdu St. [facility] HospitalComment on above:Performed By: #### LIPID, CMP #### [facility] [address] [place] [address] Dr. Mitesh Alberto [Catalytic activity/Vol]39 U/LGzsgks93-24Nhh St. [facility] HospitalComment on above:Performed By: #### LIPID, CMP #### [facility] [address] [place] [address] Dr. Mitesh Good gap [Moles/Vol]12.2 mmol/LNormalThe [facility] Comment on above:Performed By: #### LIPID, CMP #### [facility] [address] [place] [address] Dr. Yilan ChangAST [Catalytic activity/Vol]26 U/ZNatvye29-52Fpw St[facility] HospitalComment on above:Performed By: #### LIPID, CMP #### [facility] [address] [place] [address] Dr. Mitesh AnthonyBilirubin [Mass/Vol]0.4 mg/dLNormal0.2-1.0[facility] Comment on above:Performed By: #### LIPID, CMP #### [facility] [address] [place] [address] Dr. Mitesh AnthonyCalcium [Mass/Vol]9.4 mg/dLNormal8.5-10.1[facility] Comment on above:Performed By: #### LIPID, CMP #### [facility] [address] [place] [address] Dr. Mitesh AnthonyChloride [Moles/Vol]102 mmol/BGngugq86-066Nyl [facility] Comment on above:Performed By: #### LIPID, CMP #### [facility] [address] [place] [address] Dr. Mitesh AnthonyCO2 [Moles/Vol]29.5 mmol/MRlhxcf06.0-32.0[facility] Comment on above:Performed By: #### LIPID, CMP #### [facility] [address] [place] [address] Dr. Mitesh AnthonyCreatinine [Mass/Vol]1.29 mg/dLCritically high0.55-1.02The [facility] HospitalComment on above:Performed By: #### LIPID, CMP #### [facility] [address] [place] [address] Dr. Mitesh DuranGFR-AF UACKMUZT83 mL/min/1.82m7Nxjtsgizoq low>=60The [facility] HospitalComment on above:Performed By: #### LIPID, CMP #### [facility] [address] [place] [address] Dr. Mitesh DuranGFR-NON AF ZDXOHOJA44 mL/min/1.44v8Jvlounfphh low>=60The [facility] HospitalComment on above:Performed By: #### LIPID, CMP #### [facility] [address] [address] [address] Mitesh AnthonyGlobulin (S) [Mass/Vol]3.5 g/dLNoMemorial Health SystemComment on above:Performed By: #### LIPID, CMP #### [facility] [address] [address] [address] Mitesh AnthonyGlucose [Mass/Vol]113 mg/dLCritically arto37-262Rpc [facility]. [facility] HospitalComment on above:Performed By: #### LIPID, CMP #### [facility] [address] [address] [address] Mitesh AnthonyPotassium [Moles/Vol]3.7 mmol/LNormal3.5-5.1[facility] Comment on above:Performed By: #### LIPID, CMP #### [facility] [address] [address] [address] Mitesh AnthonyProtein [Mass/Vol]7.7 g/dLNormal6.4-8.2[facility] Comment on above:Performed By: #### LIPID, CMP #### [facility] [address] [address] [address] Mitesh AnthonySodium [Moles/Vol]140 mmol/WEluxva356-511Efa [facility] Comment on above:Performed By: #### LIPID, CMP #### [facility] [address] [address] [address] Mitesh AnthonyUrea nitrogen [Mass/Vol]23.0 mg/dLCritically high7.0-18.0The [facility] HospitalComment on above:Performed By: #### LIPID, CMP #### [facility] [address] [address] [address] Mitesh AnthonyUrea nitrogen/Creatinine [Mass ratio]17.8 mg/mgNoMemorial Health SystemComment on above:Performed By: #### LIPID, CMP #### [facility] [address] [address] [address] Mitesh AnthonyMG MAMM SCREEN 3D JULIANNA CADon 61-39-1274RM MAMM SCREEN 3D JULIANNA CAD Patient: LINDSEY POLO Exam Date: 04/24/2022 : 1970 Gender:F Ordering : DR JANIE TOSCANO . Admission #: [id number] Family : Order #: [id number] CLICK HERE TO VIEW EXAM RADIOLOGY REPORT PROCEDURE: MAMMOGRAM SCREENING 3D BILATERAL CAD COMPARISON: None. INDICATIONS: Screening mammography Calculator Name NCI Breast Cancer Risk Assessment Tool 5 Year Breast Cancer Risk Not Reported. Lifetime Breast Cancer Risk Not Reported. Personal Breast Cancer No Personal Ovarian Cancer No Treatments None Family Cancers None LOCATION: [facility] BREAST COMPOSITION: Heterogeneously dense,which may obscure [...] by: Shani Thomas M.D. on 04/25/2022 at 13:20[address] HospitalUS SINGLE QUAD RT UPPERon 07-54-7231PM SINGLE QUAD RT UPPEREXAMINATION: US SINGLE QUAD RT UPPER HISTORY: High [...] Electronically authenticated by: SHANI THOMAS Date: 2022-04-24 19:32NoMemorial Health SystemXR DEXA BONE DENSITYon 86-91-4592AR DEXA BONE DENSITY EXAMINATION: XR DEXA BONE [...] Electronically authenticated by: SHANI THOMAS Date: 2022-04-24 16:36NoMemorial Health SystemOutside Colonoscopyon 95-09-3470Yoichze Colonoscopy [id number]#1.00CD:127NoCleveland Clinic Lutheran HospitalReminderssm health care 28-65-3781Yxrraguou From: Natacha Perea LPN To: N - Clinical; Sent: 04/13/2022 15:39:57 EST Show up: 03/12/2032 07:00:00 EDT Subject: colonoscopy recall Due Date/Time: 04/12/2032 07:00:00 EST Reminder/Recall Patient is due for screening colonoscopy 04/12/2032.[facility] HospitalLab Reportson 49-14-5889Zhc Reports [id number]#1.00CD:127[facility] HospitalCovid-19 PCR (CVDTBH)on 69-08-4721FJCM-CoV-2 (COVID-19) RNA RITCHIE+probe Ql (Unsp spec)Not detectedNormalNOT DETECTEDThe St. Vincent HospitalComment on above: Result Comment: This test is not yet approved or cleared by the [place] FDA. When there are no FDA-approved or cleared tests available, and other criteria are met, FDA can make tests available under an emergency access mechanism called an Emergency Use Authorization (EUA). The EUA for this test is supported by the [place] of Health and Human Service's (HHS's) declaration [...] of clinical signs and symptoms consistent with SARS-CoV-2.Performed By: #### LIPID, CMP #### [facility] [address] [place] [address] Dr. Mitesh AnthonyPre-Certification Formon 49-53-9239Vve-Certification Form [id number]#1.00CD:127[facility] HospitalConsent for Procedure/Surgeryon 05-05-8902Suleknj for Procedure/Surgery [id number]#1.00CD:127[facility] HospitalAmbulatory Visit Summaryon 30-61-7212Nxhqorkcfn Visit Summary LINDSEY POLO :1970 Visit Date:03/08/2022 Ambulatory Visit Instructions Your Care Team Attending Physician - TEODORO MALIK, Christopher Hernandez Primary Care Physician - BERE, MR. LEONARDO BOSCH This Is Your Medications List Contact prescribing physician if questions or concerns amlodipine (amLODIPine 10 mg Tab) hydrochlorothiazide-lisinopril (hydrochlorothiazide-lisinopril 25 mg-20 mg Tab) levothyroxine (levothyroxine 25 mcg (0.025 mg) Tab) potassium chloride (Potassium Chloride (Gum-Fiuh-Uii M20) 20 mEq oral tablet, extended release) [...] prescribing physician if questions or concerns Unchanged hydrochlorothiazide-lisinopril (hydrochlorothiazide-lisinopril 25 mg- 20 mg Tab) 1 TabletsBy Mouth Every day Contact prescribing physician if questions or concerns Unchanged levothyroxine (levothyroxine 25 mcg (0.025 mg) Tab) 1 Tablets By Mouth Every day Contact prescribing physician if questions or concerns Unchanged potassium chloride (Potassium Chloride (Rip-Qmym-Dxd M20) 20 mEq oral tablet, extended release) [...] are no longer receiving treatment for. Hypokalemia [facility] ACOG PANEL 2: 30 to 65on 03-08-2022..NormalThe [address] Vincent HospitalComment on above:Result Comment: Performed at: WBPerformed By: #### [id number] #### [facility] [address] [place] [address] Dr. Mitesh Jarvis Gdln ACOG Khhwkei81-27GevoadXxnCincinnati Shriners HospitalComment on above:Performed By: #### [id number] #### [facility] [address] [address] [address] Mitesh AnthonyDIAGNOSIS:CommentMercy Health Lorain Hospital on above: Result Comment: NEGATIVE FOR INTRAEPITHELIAL LESION OR MALIGNANCY. Performed at: WBPerformed By: #### [id number] #### [facility] [address] [address] [address] Mitesh AnthonyHPV AptimaNegativeNormalNegativeThe St. Vincent HospitalComment on above:Result Comment: This nucleic acid amplification test detects fourteen high-risk HPV types (16,18,31,33,35,39,45,51,52,56,58,59,66,68) without differentiation. Performed at: =GPerformed By: #### [id number] #### [facility] [address] [place] [address] Dr. Mitesh AnthonyMethodology:CommentMercy Health Lorain Hospital on above: Result Comment: This liquid based ThinPrep(R) pap test was screened with the use of an image guided system. Performed at: WBPerformed By: #### [id number] #### [address] [address] [address] Mitesh AnthonyNote:CommentMercy Health Lorain Hospital on above:Result Comment: The Pap smear is a screening test designed to aid in the detection of premalignant and malignant conditions of the uterine cervix. It is not a diagnostic procedure and should not be used as the sole means of detecting cervical cancer. Both false-positive and false-negative reports do occur. . Performed at: WBPerformed By: #### [id number] #### [address] [address] [address] Mitesh AnthonyPerformed by:CommentMercy Health Lorain Hospital on above: Result Comment: Osorio Bishop, Airplane Pilot Commercial (ASCP) Performed at: WBPerformed By: #### [id number] #### [address] [address] Dr[address] Mitesh AnthonySpecimen adequacy:CommentMercy Health Lorain Hospital on above:Result Comment: Satisfactory for evaluation. Endocervical and/or squamous metaplastic cells (endocervical component) are present. Performed at: WBPerformed By: #### [id number] #### [facility] [address] [place] [address] Dr. Mitesh AnthonyTHYROID PEROXIDASE ABon 91-84-2503Lkcinzh Peroxidase (TPO) Ab8 IU/mLNormal0-34The Protestant Hospitalment on above:Performed By: #### TPOAB #### [facility] [address] [place] [address] Dr. Mitesh Mcclain C ANTIBODYon 72-54-1356Ypv C Virus Ab<0.9Kmsszf2.0-0.9 [facility] CenterComment on above:Result Comment: Negative: < 0.8 Indeterminate: 0.8 - 0.9 Positive: > 0.9 . HCV antibody alone does not differentiate between previous resolved infection and active infection. The CDC and current clinical guidelines recommend that a positive HCV antibody result be followed up with an HCV RNA test to support the diagnosis of acute HCV infection. [facility] offers Hepatitis C Virus (HCV) RNA, Diagnosis, RITCHIE (370814) and Hepatitis C Virus (HCV) Antibody with reflex to Quantitative Real-time PCR (198118).Performed By: #### LIPID, CMP #### [facility] [address] [place] [address] Dr. Mitesh Yangsician Referralon 68-87-8646Kyqlwnggn Referral [id number]#1.00CD:127[facility] HospitalCBC AUTO DIFFon 25-38-5635TGLU #0.0 103/ulNormal0.0-0.1[facility] Health CenterComment on above:Performed By: #### LIPID, CMP #### [facility] [address] [place] [address] Dr. Mitesh AnthonyBasophils/100 WBC (Bld)0.5 %Normal0.2-2.0[facility] Comment on above:Performed By: #### LIPID, CMP #### [facility] [address] [place] [address] Dr. Mitesh Tamez #0.1 103/ulNormal0.0-0.7The St. [facility] HospitalComment on above: Performed By: #### LIPID, CMP #### [facility] [address] [place] [address] Dr. Sagastume ChangEosinophils/100 WBC (Bld)2.1 %Normal0.9-7.0[facility] Comment on above:Performed By: #### LIPID, CMP #### [facility] [address] [place] [address] Dr. Mitesh Duranrythrocyte distribution width (RBC) [Ratio]14.4 %Xeuzez08.0-15.0 The Protestant Hospitalment on above:Performed By: #### LIPID, CMP #### [facility] [address] [place] [address] Dr. Mitesh AnthonyHematocrit (Bld) [Volume fraction]36.1 %Sorlsb96.0-48.0The [facility] Vincent HospitalComment on above:Performed By: #### LIPID, CMP #### [facility] [address] [place] [address] Dr. Mitesh AnthonyHemoglobin (Bld) [Mass/Vol]11.7 g/dLCritically low12.0-16.0The [facility] Hospitalment on above:Performed By: #### LIPID, CMP #### [facility] [address] [place] [address] Dr. Mitesh Hawthorne #0.01 10e3/ulNormal0.00-0.03The [facility] HospitalComtrinity health [facility] on above:Performed By: #### LIPID, CMP #### [facility] [address] [place] [address] Dr. Mitesh Hawthorne %0.2 %Normal0.0-0.5The St. [facility] HospitalComment on above: Performed By: #### LIPID, CMP #### [facility] [address] [place] [address] Dr. Mitesh Mckeon #1.7 103/ulNormal1.2-3.8The [facility] HospitalComtrinity health [facility] on above:Performed By: #### LIPID, CMP #### [facility] [address] [place] [address] Dr. Mitesh Marinhocytes/100 WBC (Bld)29.1 %Lykjwm04.5-60.0The [facility] Hospitalment on above:Performed By: #### LIPID, CMP #### [facility] [address] [place] [address] Dr. Mitesh FraustoUAL DIFF REQNONormalThe St. Vincent HospitalComment on above: Performed By: #### LIPID, CMP #### [facility] [address] [place] [address] Dr. Mitesh Daigle (RBC) [Entitic mass]30.5 sgWnalml64.7-34.0The [facility] HospitalComment on above:Performed By: #### LIPID, CMP #### [facility] [address] [place] [address] Dr. Mitesh Daigle (RBC) [Mass/Vol]32.4 g/rZOwzazp91.9-35.2The [facility] HospitalComment on above:Performed By: #### LIPID, CMP #### [facility] [address] [place] [address] Dr. Mitesh Hackett (RBC) [Entitic vol]94.0 [address]DSstlxa98.0-99.0The [facility] HospitalComment on above:Performed By: #### LIPID, CMP #### [facility] [address] [place] [address] Dr. Mitesh Almanza #0.5 103/ulNormal0.3-0.8The [facility] HospitalComment on above:Performed By: #### LIPID, CMP #### [facility] [address] [place] [address] Dr. Mitesh Valentinoocytes/100 WBC (Bld)8.0 %Normal1.7-12.0The [facility] Comment on above:Performed By: #### LIPID, CMP #### [facility] [address] [place] [address] Dr. Mitesh Mason #3.5 103/ulNormal1.4-6.5The [facility] HospitalComment on above:Performed By: #### LIPID, CMP #### [facility] [address] [place] [address] Dr. Mitesh Damonophils/100 WBC (Bld)60.1 %Mszkeq91.0-75.0The [facility] HospitalComment on above:Performed By: #### LIPID, CMP #### [facility] [address] [place] [address] Dr. Mitesh AnthonyPlatelet mean volume (Bld) [Entitic vol]9.5 fLNormal9.5-13.5The [facility] HospitalComtrinity health [facility] on above:Performed By: #### LIPID, CMP #### [facility] [facility] [address] [address] [address] Mitesh AnthonyPLT260 103/nyXxbefz207-538Utn [facility] on above: Performed By: #### LIPID, CMP #### [facility] [address] [place] [address] Dr. Mitesh AnthonyRBC3.84 106/ulCritically low4.20-5.40The [facility] on above:Performed By: #### LIPID, CMP #### [facility] [address] [place] [address] Dr. Mitesh AnthonyWBC5.8 103/ulNormal4.0-11.0The [facility] on above: Performed By: #### LIPID, CMP #### [facility] [address] [place] [address] Dr. Mitesh AnthonyFREE T4on 23-68-3460Fgoi T4 [Mass/Vol]1.08 ng/dLNormal0.76-1.[address] [facility] on above:Performed By: #### LIPID, CMP #### [facility] [address] [place] [address] Dr. Mitesh AnthonyGLYCOHEMOGLOBIN A1Con 64-33-9626OVC RECOMMENDATIONSEE BELOWNormal The [facility] on above:Result Comment: ADA RECOMMENDED LIMIT 4.0 - 6.0 ADA THERAPEUTIC TARGET < 7.0 ACTION SUGGESTED > 7.0Performed By: #### A1C #### [facility] [address] [place] [address] Dr. Mitesh AnthonyGlucose [Mass/Vol]126 mg/dLNormalThe St. [facility] HospitalComtr[facility] on above:Performed By: #### A1C #### [facility] [address] [place] [address] Dr. Mitesh AnthonyHbA1c (Bld) [Mass fraction]6.0 %Normal4.5-6.2The [facility] HospitalComment on above:Performed By: #### A1C #### [facility] [address] [address] [address] Mitesh HuitronID PROFILEon 21-92-7481LUXS-HDL RATIO NORMSKettering Health Behavioral Medical CenterComment on above:Result Comment: 3.3 - 4.4 LOW RISK 4.4 - 7.1 AVERAGE RISK 7.1 - 11.0 MODERATE RISK >11.0 HIGH RISKPerformed By: #### LIPID, CMP #### [facility] [address] [address] [address] Mitesh AnthonyCholesterol [Mass/Vol]233 mg/dLCritically high<=200The [facility] on above:Performed By: #### LIPID, CMP #### [facility] [address] [address] [address] Mitesh AnthonyCholesterol in HDL [Mass/Vol]97 mg/dLCritically kiuk98-14Xti St. [facility] HospitalComment on above:Performed By: #### LIPID, CMP #### [facility] [address] [address] [address] Mitesh AnthonyCholesterol in LDL [Mass/Vol]113.0 mg/dLWilson Street HospitalComtrinity health [facility] on above:Performed By: #### LIPID, CMP #### [facility] [address] [address] [address] Mitesh Bessesterjoselo.total/Cholesterol in HDL [Mass ratio]2.4 {ratio} NormalThe St. [facility] HospitalCom[facility] on above:Performed By: #### LIPID, CMP #### [facility] [address] [address] [address] Mitesh AnthonyHDKasi NORMAL> or = 60 mg/dl - LOW CARDIOVASCULAR RISK <40 mg/dl - HIGH CARDIOVASCULAR RISKWilson Street HospitalComtrinity [facility] on above:Performed By: #### LIPID, CMP #### [facility] [address] [address] [address] Mitesh AnthonyLDL CALC NORMALSEE [facility] HospitalComment on above:Result Comment: <100 mg/dl OPTIMAL 100 - 129 mg/dl NEAR OR ABOVE OPTIMAL 130 - 159 mg/dl BORDERLINE HIGH 160 - 189 mg/dl HIGH >190 mg/dl VERY HIGH Performed By: #### LIPID, CMP #### [facility] [address] [address] [address] Mitesh AnthonyTriglyceride [Mass/Vol]115 mg/dLNormal<=150The [facility] Comment on above:Performed By: #### LIPID, CMP #### [facility] [address] [address] [address] Mitesh AnthonyVLDL CALC23.0 mg/dLNormalThe St. Vincent HospitalComment on above: Performed By: #### LIPID, CMP #### [facility] [address] [place] [address] Dr. Mitesh AnthonyPROF 14(COMP METB)on 13-04-2013Lakvsmb [Mass/Vol]4.3 g/dLNormal 3.4-5.0The [facility]. [facility] HospitalComment on above:Performed By: #### LIPID, CMP #### [facility] [address] [place] [address] Dr. Mitesh AnthonyAlbumin/Globulin [Mass ratio]1.3 {ratio}NormalThe St. Vincent HospitalComment on above:Performed By: #### LIPID, CMP #### [facility] [address] [place] [address] Dr. Mitesh Velarde [Catalytic activity/Vol]100 U/TTsgdwc50-050Wqg St. [facility] HospitalComment on above:Performed By: #### LIPID, CMP #### [facility] [address] [address] [address] Mitesh Alberto [Catalytic activity/Vol]110 U/LCritically vijx10-18Xba St. [facility] HospitalComment on above:Performed By: #### LIPID, CMP #### [facility] [address] [address] [address] Mitesh Good gap [Moles/Vol]12.4 mmol/LNormalThe [facility] Comment on above:Performed By: #### LIPID, CMP #### [facility] [address] [address] [address] Mitesh AnthonyAST [Catalytic activity/Vol]48 U/LCritically azgx13-68Xgy [facility]. [facility] HospitalComment on above:Performed By: #### LIPID, CMP #### [facility] [address] [address] [address] Mitesh AnthonyBilirubin [Mass/Vol]0.4 mg/dLNormal0.2-1.0The [facility] Comment on above:Performed By: #### LIPID, CMP #### [facility] [address] [address] [address] Mitesh AnthonyCalcium [Mass/Vol]9.3 mg/dLNormal8.5-10.1The [facility] Comment on above:Performed By: #### LIPID, CMP #### [facility] [address] [address] [address] Mitesh AnthonyChloride [Moles/Vol]106 mmol/KXaxsee56-865Gir [facility] Comment on above:Performed By: #### LIPID, CMP #### [facility] [address] [address] [address] Mitesh AnthonyCO2 [Moles/Vol]27.6 mmol/QVgrejt70.0-32.0The [facility] Comment on above:Performed By: #### LIPID, CMP #### [facility] [address] [address] [address] Mitesh AnthonyCreatinine [Mass/Vol]1.23 mg/dLCritically high0.55-1.02The [facility]. [facility] HospitalComment on above:Performed By: #### LIPID, CMP #### [facility] [address] [address] [address] Mitesh DuranGFR-AF ISRITGXJ13 mL/min/1.94m7Ivagenmllb low>=60The St. [facility] HospitalComment on above:Performed By: #### LIPID, CMP #### [facility] [address] [address] [address] Mitesh DuranGFR-NON AF OOADWCCB29 mL/min/1.69q9Yctgwotqhw low>=60The [facility]. [facility] HospitalComment on above:Performed By: #### LIPID, CMP #### [facility] [address] [address] [address] Mitesh AnthonyGlobulin (S) [Mass/Vol]3.3 g/dLNoMemorial Health SystemComment on above:Performed By: #### LIPID, CMP #### [facility] [address] [address] [address] Mitesh AnthonyGlucose [Mass/Vol]97 mg/fBUcnrnl02-791HcwOhiohealth Nelsonville Health Center Comment on above:Performed By: #### LIPID, CMP #### [facility] [address] [address] [address] Mitesh AnthonyPotassium [Moles/Vol]4.0 mmol/LNormal3.5-5.1The [facility] Comment on above:Performed By: #### LIPID, CMP #### [facility] [address] [place] [address] Dr. Mitesh AnthonyProtein [Mass/Vol]7.6 g/dLNormal6.4-8.2[facility] Comment on above:Performed By: #### LIPID, CMP #### [facility] [address] [place] [address] Dr. Mitesh AnthonySodium [Moles/Vol]142 mmol/XHnkjjt544-782CeoOhiohealth Nelsonville Health Center Comment on above:Performed By: #### LIPID, CMP #### [facility] [address] [place] [address] Dr. Mitesh AnthonyUrea nitrogen [Mass/Vol]22.0 mg/dLCritically high7.0-18.0The St. [facility] HospitalComment on above:Performed By: #### LIPID, CMP #### [facility] [address] [place] [address] Dr. Mitesh Branch nitrogen/Creatinine [Mass ratio]17.9 mg/mgNoMemorial Health SystemComment on above:Performed By: #### LIPID, CMP #### [facility] [address] [place] [address] Dr. Mitesh Dove 66-84-4572NUX6.355 uIU/mLNormal0.358-3.740The St. [facility] HospitalComment on above:Performed By: #### LIPID, CMP #### [facility] [address] [place] [address] Mitesh AnthonyComprehensive metabolic 2000 panelon 02-82-4546Bixfhri [Mass/Vol] 4.5 g/dL3.2 - 5.2 g/dLOhioHealthALP [Catalytic activity/Vol]75 U/L40 - 150 U/L OhioHealthALT [Catalytic activity/Vol]14 U/L0 - 40 U/LOhioHealthAnion gap [Moles/Vol]16 mmol/L10 - 20 mmol/LOhioHealthAST [Catalytic activity/Vol]17 U/L0 - 45 U/LOhioHealthBilirubin [Mass/Vol]0.3 mg/dL0.0 - 1.3 mg/dLOhioHealthCalcium [Mass/Vol]9.0 mg/dL8.4 - 10.2 mg/dLOhioHealthChloride [Moles/Vol]105 mmol/L98 - 108 mmol/LOhioHealthCreatinine [Mass/Vol]1.16 mg/dLHigh0.40 - 1.10[facility] GFR/1.73 sq M.predicted CKD-EPI (S/P/Bld) [Vol rate/Area]64>=60 mL/min/1.73 m2 OhioHealthGlucose [Mass/Vol]129 mg/sYIjje51 - 99 mg/dLOhioHealthHCO3 [Moles/Vol] 26 mmol/L21 - 32 mmol/LOhioHealthInterpretation and review of laboratory results AbnormalOhioHealthPotassium [Moles/Vol]3.7 mmol/L3.5 - 5.1 mmol/LOhioHealth Protein [Mass/Vol]6.5 g/dL6.0 - 8.0 g/dLOhioHealthSodium [Moles/Vol]143 mmol/L 135 - 145 mmol/LOhioHealthUrea nitrogen [Mass/Vol]20 mg/dL8 - 25 mg/dLOhioHealth Urea nitrogen/Creatinine [Mass ratio]17.2 mg/mgOhioHealthThe eGFR should be used for monitoring renal function only and not for medication dosing.OhioLakeHealth Beachwood Medical CenterV 1/2 Screen (4th Generation)on 35-69-2080JVS 1+2 Ab+HIV1 p24 Ag IA QlNegative NegativeOhioHealthThis assay screens for the presence of HIV-1, HIV-2 antibodies and for the presence of HIV-1 antigen. Test performed using Stuart SAÚL immunoassay ouhrwpBbrwOnwrenAqB0l (Bld) [Mass fraction]on 42-33-8104Omujwgr glucose Estimated from glycated hemoglobin (Bld) [Mass/Vol]137 mg/aKDkxl10 - 114 mg/dLOhioHealthInterpretation and review of laboratory resultsAbnormalOhioHealthNormal: 4.2% - 5.6% Increased risk for diabetes: 5.7% - 6.4% Diabetes: >= 6.5% Pediatrics: No established reference range Estimated average glucose: 74-114 mg/dLOhioHealthOhioHealthHemoglobin A1con 90-22-8875WvU9w (Bld) [Mass fraction]6.4 %High4.2 - 5.6 %OhioHealthHepatitis C Antibodyon 83-35-9659DMN Ab Ql (S)NegativeNegativeOhioHealthTest performed using Stuart SAÚL immunoassay systemOhioHealthLipid 1996 panelon 14-67-3040Wnluvsfvsvd [Mass/Vol]195 mg/dL100 - 199 mg/dLOhioHealthCholesterol in HDL [Mass/Vol]69 mg/dL40 - 59OhioHealthCholesterol in LDL [Mass/Vol]114 mg/dL10 - 130 mg/dL OhioHealthComment on above:National Cholesterol Education Program Guidelines: LDL Cholesterol Optimal: <100 mg/dL Near Optimal/above Optimal: 100-129 mg/dL Borderline High: 130-159 mg/dL High: 160-189 mg/dL Very High: greater than or equal to 190 mg/dL Cholesterol non HDL [Mass/Vol]126 mg/dLOhioHealthComment on above:National Cholesterol Education Program Guidelines: NON HDL Cholesterol Desirable: <130 mg/dL Borderline High: 130-159 mg/dL High: 160-189 mg/dL Very High: > or = 190 mg/dL Cholesterol.total/Cholesterol in HDL [Mass ratio]2.8 {ratio}ratioOhioHealth Comment on above:Female Cholesterol/HDL Ratio: Average risk: 4.4 1/2 average risk: 3.3 2 x average risk: 7.1 Triglyceride [Mass/Vol]62 mg/dL30 - 150 mg/dLWvioHealthNo Panel Informationon 03-62-3492Nuulfnqkhotlgp and review of laboratory resultsNoTrinity Health [facility] DL <= 0.005 mIU/L Qnon 95-49-8935Ikutwwvgwpdijn and review of laboratory resultsNoGlenbeigh Hospital Qn2.57 m[IU]/[facility] Vital Signs Date TimeVital SignValuePerforming QjiwtlupdTcuxofyl28-46-0129 16:11-0400Body mass index (BMI) [Ratio]18 kg/c3MgrsclvqaOhiohealth [facility]10-01-2024 16:11-0400Diastolic blood mm[Hg][facility] 02-26-2024 16:11-0400Systolic blood cfnjcozm317 mm[Hg][facility]10-01-2024 16:03-0400Body cbpwyb528.78 cmOhiohealth [facility]10-01-2024 16:03-0400Body chinfhptqzx95.8 [degF][facility]10-01-2024 16:03-0400Body xkujot60.76 kgOhiohealth [facility] 02-26-2024 16:03-0400Heart prot622 /[facility] 02-26-2024 16:03-0400Respiratory rate16 /[facility] 02-26-2024 16:03-1997HtU7% (BldA) [Mass fraction]95 %[facility]06-19-2024 10:24-0400Body rlvzsu003.78 cmOhiohealth [facility] 11-14-2023 10:24-0400Body mass index (BMI) [Ratio]16.9 kg/k2IjigyokflOhiohealth [facility] Hospital06-19-2024 10:24-0400Body suuchmkaltf26.5 [degF][facility]06-19-2024 10:24-0400Body .49 kgOhiohealth [facility]06-19-2024 10:24-0400Diastolic blood xstititp44 mm[Hg][facility]06-19-2024 10:24-0400Heart odwv108 /[facility]06-19-2024 10:24-0400Respiratory rate16 /[facility]06-19-2024 10:24-7375PkL0% (BldA) [Mass fraction]99 %[facility]06-19-2024 10:24-0400Systolic blood aqmkwucq170 mm[Hg] [facility]09-19-2023 15:20-0400Body pwtffa074.78 cmAjordanlaurie Krishna Other [employer] Other 09-19-2023 15:20-0400Body mass index (BMI) [Ratio] 16.27 kg/m2Corazon Linkstefani Other [employer] Other 09-19-2023 15:20-0400Body .4 [degF]Corazon Farmerlaurastefani Other [employer] Other 09-19-2023 15:20-0400Body icfald60.11 kgEnocrich Krishna Other [employer] Other 09-19-2023 15:20-0400Diastolic blood mm[Hg]Enocrich Linksetfani Other [employer] Other 09-19-2023 15:20-0400Respiratory rate16 /minCorazon Krishna Other [employer] Other 09-19-2023 15:20-7260ZgE5% (BldA) [Mass fraction]99 % Corazon Krishna Other [employer] Other 09-19-2023 15:20-0400Systolic blood aafkwjfv455 mm[Hg] Corazon Krishna Other [place] [employer] Other 976979-21-9810 15:14-0500Body vckgni105.1 cmKaden Golden MD Work Phone: [facility]03-08-2023 15:14-0500Body temperature 97.5 [degF]Kaden Golden MD Work Phone: [facility]03-08-2023 15:14-0500Body iywgro00.2 kgKaden Golden MD Work Phone: [facility]03-08-2023 15:14-0500Diastolic blood mvvjfilm63 mm[Hg]Kaden Golden MD Work Phone: [facility]03-08-2023 15:14-0500Heart rate74 /min Kaden Golden MD Work Phone: [facility]03-08-2023 15:14-0500Respiratory rate 16 /minKaden Golden MD Work Phone: [facility]03-08-2023 15:14-1183FrM4% (BldA) [Mass fraction]93 %Kaden Golden MD Work Phone: [facility]03-08-2023 15:14-0500Systolic blood qmhzjnaz953 mm[Hg]Kaden Golden MD Work Phone: [facility]01-24-2023 14:28-0500Blood Pressure LocationMichael NILL [facility] Surgery Bqfzjpgk46-26-4153 14:28-0500Diastolic blood zjwlpbuf54 mm[Hg]Christopher NILL [facility]01-24-2023 14:28-0500Heart rate 70 /minMichael NILL [facility]01-24-2023 14:28-0500 Respiratory rate16 /minMichael NILL General Surgery Vvktrnkk04-47-1695 14:28-0500Systolic blood nviiqciz331 mm[Hg]Christopher LANDERSL General Surgery Oyaysmlv71-82-5038 11:52-0400Diastolic blood wnannrij413 mm[Hg]Radha Sierra MD Work Phone: 1(791) [phone]wvmrk77-53-8113 11:52-0400Systolic blood pressure 162 mm[Hg]Radha Sierra MD Work Phone: [phone]pwbln49-28-0027 10:58-0400Body ddejab798.1 [facility] Rigo MALIK Work Phone: 1(260) [phone]emozo69-20-8862 10:58-0400Body mass index (BMI) [Ratio]16.02 kg/m2Radha Sierra MD Work Phone: [phone]) [phone]otuzi34-10-3860 10:58-0400Body hjpepfeilpz76.49 [degF]Radha Sierra MD Work Phone: 1(547) [phone]rswua33-34-4858 10:58-0400Body hxarus14.94 kgJbth Rigo MALIK Work Phone: [phone]pcozo78-00-1852 10:58-0400Heart tdzr857 /minRadha Sierra MD Work Phone: [phone]tlyci97-96-6049 10:58-0400Respiratory rate16 /min Radha Sierra MD Work Phone: 1(505) [phone]fnrwi04-58-6371 10:58-6596OvH2% (BldA) [Mass fraction]99 %Radha Sierra MD Work Phone: [phone]wvapa73-26-6607 09:17-0500BP Iohxtcedp66 mm[Hg] Suraj UegblwGjsyZeelox94-06-2782 09:17-0500BP Ghmqzgpx997 mm[Hg]Suraj Addison FyhmIbgsmo36-20-6455 09:07-0500BMI (Body Mass Index)16.12 kg/m1MlulsSuraj Addison LxatLjilee75-97-7051 09:07-0500Body Kqgossukphm53.59 [degF]Suraj Addison PuqoEglpcm63-02-3077 09:070500Body bsynns91.67 kgSuraj [facility] 04-04-2019 09:07-5405Yowezy162.4 cmBadavian BfnrxgUyzcTuiukp43-15-4959 09:07-0500 Pulse (Heart Rate)95 /minSuraj FernandezVoxayaOzooAfvmsu53-52-8234 09:07-0500Pulse Ltyiaqit01 %Suraj FernandezGadzzjGfcvEknhmn85-31-5116 09:02-0400BMI (Body Mass Index) 17.09 kg/i1Hyradajp RtvhkuGundSxovjp59-12-5916 09:02-0400Body Binoavvxrkn30.81 [degF]Nahum QkibyiHebqIncqqr73-34-9626 09:02-0400BP Ekvxmqvkn15 mm[Hg] Nahum SncqfiKjkzIfbbvj66-28-3061 09:02-0400BP Qvizirzj716 mm[Hg]Nahum XtqksnOhppTbnhxm10-18-9620 09:02-0669Pdkjtz666.4 cmCpine rest christian mental health servicesaelxandre [facility] 09-17-2018 09:02-0400Pulse (Heart Rate)109 /minFormerly [facility] 09-17-2018 09:02-0400Pulse Awwxtpcx86 %Nahum FilefxElspPdfgeo85-62-6564 09:02-9311Umxkqh75.39 kgNahum ZkrtejHbxqNlmfky80-92-2077 08:19-0400BMI (Body Mass Index)16.94 kg/s1Ksydf UujtkrqoLwfnCtdspw49-62-9435 08:19-9343Fcamwt900.4 cmRenestormy ZpznranhSvvyWiyeng15-75-8102 08:19-7055Zngzez00.12 kgNini Pelletier XmluJlbaer88-25-0542 11:10-0400BP Stzohxnjf639 mm[Hg]Nini [facility] 08-28-2017 11:10-0400BP Kxnkffkn617 mm[Hg]Nini PelletierMxjtoahbDmfvYedhuh98-43-7448 09:59-0400BMI (Body Mass Index)16.33 kg/z1NdvxrNini PelletierCadtgiuhRoldGilqxz58-43-9238 09:59-4832Mvzjzq559.4 Linda PelletierNsvdpweoCwivZcirou74-21-0194 09:59-8515Phnmha47.03 kgNini PelletierXdecmkxdGpzzKtonkc36-78-1903 10:39-0400BMI (Body Mass Index)16.53 kg/m2 Nini GbxdvggfSthdOjmwss81-19-0922 10:39-1764Qoqukl414.4 Linda Pelletier LfffKqhbjl56-39-5177 10:39-0953Rbpqya82.39 Fede LldhqpgcInngBppjqj82-58-6178 10:19-0500BP Ocqfaigzm45 mm[Hg]Nini TijbhxxlQjfqLtocsz03-08-4653 10:19-0500BP Gxatygaq649 mm[Hg][facility] HospitalPnvxnkbbLlbiZrzbbo44-51-8495 10:19-0500Pulse (Heart Rate)107 /minCorewell Health Reed City Hospitalstormy QqomneoaOhrmWczqfi16-43-1067 09:04-0500BMI (Body Mass Index) 15.82 kg/g9Zalwz HzfgdxuuImqhFwbulu13-90-4725 09:04-0500Body Oxuspviwokn20.8 [degF]Nini YfdsgzaaJqtdJepxlk45-44-3741 09:04-2334Iexdpf094.4 Linda Pelletier XpbbCgjobb74-52-0274 09:04-0500Pulse Mtrvjrxj49 %[facility] 07-31-2017 09:04-4086Lfcqob72.12 unrulyCorewell Health Reed City Hospitalstormy [facility] Encounters Encounter DateEncounter TypeCare ProviderFacilityStart: 02-26-2024 End: 49-23-7100oelutfnktmYiaeiesvtMartin Memorial Hospital Work Phone: Start: 02-26-2024 End: 25-66-9893Ltqkdkn encounter procedureNov[facility] Nephrology Ed Work Phone: Start: 01-22-2024 End: 11-72-4724yxxlaacwmqJOTREYY T BR[facility] MED[facility] CENTERANTSuburban [facility] Hospital & Brent[facility] Hospitaltart: 01-20-2024 End: 04-41-4315Lpkfrefqsp and management of inpatientDARWINIAN Francisco JONAGEMary Rutan Hospitaltart: 01-20-2024 End: 13-00-3170Rozskajas department patient visitSROBERTA DANIELSDeniseCovenant Medical Centertart: 11-14-2023 End: 44-65-6241qliuncazggNyixsvwcaMartin Memorial Hospital Work Phone: Start: 11-14-2023 End: 09-38-1529Enlcqag encounter procedureNovant Health [facility] Nephrology Ed Work Phone: Start: 76-17-1756Bef-patient / Non-visitNovant Health [facility]-[place] [employer] Work Phone: Start: 03-01-2023 End: 79-64-5639lspbfuvsojNsvw Baklauras Other [employer] Other Start: 12-83-8989Nsglxvvgp encounterAziz BaklaurasFPG NephrologyStart: 02-13-2023 End: 93-22-6963szfmuptkcfZrbg Bakhous Other [employer] Other Start: 05-68-9143Shihlg outpatient new 30 minutesAziz BaklaurasFPG Nephrology ClydeStart: 08-17-2022 End: 83-96-2713eryyyqafqtCBKWD SHAMMOFacility:D8Jwdzg: 08-02-2022 End: 19-34-1362ycevdzpxaiZUGVY MARÍALOUFacility:[facility] Centertart: 08-02-2022 End: 11-11-7935bghlmundphYvskrIbrahima Golden MD Work Phone: Hematology/OncologyComment on above:Atypical ductal hyperplasia of left breast (Primary Dx); Encounter for screening mammogram for malignant neoplasm of breastStart: 08-02-2022 End: 21-30-8007Sdyfkjg encounter procedureKaden Golden MD Work Phone: SANDUSKYStart: 07-21-2022 End: 22-28-8616qrpfyivkzsMDGVB SHAMMOFacility:[facility] Systemtart: 07-21-2022 End: 36-57-5809Zecrmpj encounter procedureMichael R NILL General Surgery Nill/Said Misbah Start: 38-73-7415PxanxcYqviJonh Sierra MD Work Phone: [facility] Primary Care PhysiciansComment on above:HTN Start: 07-12-2022 End: 31-05-0593kxgriatiimWQESV SHAMMOFacility:CD:[id number]: 07-05-2022 Encounter for preprocedural cardiovascular examinationDR CHRISTOPHER VALERIO .[facility]art: 01-55-1749Jinpurrxw for preprocedural laboratory examinationDR CHRISTOPHER VALERIO .[facility] Columb[facility]art: 07-04-2022 End: 02-80-8148pluhzrupveXK CHRISTOPHER VALERIO .Facility:K5Znpdw: 07-04-2022 End: 73-04-6116Jhbojkdna for preprocedural laboratory examinationDR CHRISTOPHER VALERIO .Facility:D1Hggat: 06-20-2022 End: 34-70-8209ocpghtqredKLYVK SHAMMOFacility:[facility] Centertart: 06-20-2022 End: 90-12-6821Gwgzdka encounter procedureMichael R NILL General Surgery Nill/Said [place] Start: 06-05-2022 End: 25-64-8641misykshjorDOFXK SHAMMOFacility:V7Yilkg: 05-18-2022 End: 12-85-9263tlxqvqrlcgNCQRL SHAMMOFacility:O9Oynoz: 05-16-2022 End: 87-48-5737vvbgldagywMSTCN SHAMMOFacility:R9Zxlpc: 04-24-2022 End: 06-14-2680mpgbjesiblRA JANIE TOSCANO .Facility:L3Zldnx: 04-12-2022 End: 51-39-5907udbfjudfogKRAQR SHAMMOFacility:CD:[id number]: 04-08-2022 End: 15-40-5522dhfwwgtvywOD CHRISTOPHER VALERIO .Facility:J6Zrxgw: 03-08-2022 End: 12-90-4897rgoljgyhxqUFDLV SHAMMOFacility: BellevueStart: 14-89-3771Lwrksnmattie Sierra MD Work Phone: [employer] Primary Care PhysiciansComment on above: Acquired hypothyroidismStart: 03-01-2022 End: 69-05-0259glqpmomtawWG JANIE TOSCANO .Facility:W3Ytpxp: 03-01-2022 ambulatoryLUCAS SHAMMOFacility: BellevueStart: 45-23-2476rqtjryqnldRCKZF SHAMMOFacility: [place]Start: 02-16-2022 End: 35-39-8654iigcgxczsuHT DOCTOR MISCFacility:O7Wdtvu: 09-22-2021 End: 06-01-0516obwmfuihriRRXFRADHA [facility] HospitalStart: 09-22-2021 End: 48-25-5870Zptufc outpatient visit [facility] hospitalRad[facility] MD Work Phone: [employer] Primary Care PhysiciansComment on above:HTN (Primary Dx); Acquired hypothyroidism; Hyperlipidemia, unspecified hyperlipidemia type; Colon cancer screening; Encounter for screening for malignant neoplasm of breast, unspecified screening modality; Healthcare maintenance; Sinus tachycardia, chronic; Elevated serum creatinine; Prediabetes; Hypertension, benignStart: 04-30-2020 End: 39-85-2039Lemscnu encounter procedureCARCogniFit Ambulatory Start: 28-88-6389Gcuyrny encounter procedureCARCogniFit AmbulatoryStart: 10-01-2019 End: 68-56-8803Rfnsjca encounter [facility]CARC[facility] Start: 09-25-2019 End: 52-70-7978Endqszi encounter [facility]CARC[facility] Start: 05-90-0406Swzfyuv encounter [facility]CARTr[facility]ulatoryStart: 04-04-2019 End: 15-21-8356Dqqmdst encounter Uma Addison Work Phone: [facility] Primary Care PhysiciansComment on above: Well adult exam (Primary Dx); HTN; Acquired hypothyroidism; Hyperlipidemia, unspecified hyperlipidemia type; Unexplained weight loss; Screening for malignant neoplasm of breast; Hearing loss, unspecified hearing loss type, unspecified laterality; Family history of diabetes mellitusStart: 09-17-2018 End: 34-26-4188Hkrtve outpatient visit [facility] Work Phone: [facility] Primary Care PhysiciansComment on above: Bilateral hearing loss, unspecified hearing loss type (Primary Dx); Intellectual disability (CORBIN Polo, ); Short statureStart: 09-26-2017 End: 98-54-4935Mpxjax/outpatient visit, est, level 4Renea Pelletier Work Phone: [facility] PhysiciansStart: 08-28-2017 Office/outpatient visit, est, level 3Renea Pelletier Work Phone: [facility] PhysiciansStart: 08-14-2017 Office/outpatient visit, est, level 3Renea Pelletier Work Phone: [facility] PhysiciansStart: 07-31-2017 Office/outpatient visit, est, level 3Renea Pelletier Work Phone: [facility] PhysiciansStart: 06-15-2011 End: 06-79-6088Rbkxkhr encounter Marley Sierra MD Work Phone: [facility] Work Phone: Procedures DateProcedureProcedure DetailPerforming ClinicianStart: 43-24-1286Sqtkrzdqkl of left breastMichael NILL Start: 73-08-8897Qygxo depression screening assessment Radha Sierra MD Work Phone: Start: 22-95-5674Blqld depression screening assessment Suraj JalaliStart: 48-57-6407Yutwy depression screening assessmentCaroline RicheyColonoscopyMichael NILL Core needle biopsy of breastMichael NILL Plan of Treatment DateCare ActivityDetailAuthorStart: 51-75-4499Eydffzy vaccinationOhioHealth Start: 53-85-5419Zcajqryctv screening using PHQ-9 (Patient Health Questionnaire 9) scoreDepression Screening (PHQ-2/9)[facility]The [facility] HospitalStart: 08-44-9161SMORWDZTEA ASSESSMENTDEPRESSION ASSESSMENTMercy Health St. Joseph Warren Hospitaltart: 23-59-0156Uzgvgtrbe vaccinationOhioHealthStart: 10-07-2021 End: 11-08-5212Ooljaoi encounter pptairkzk08/13/2022 Office Visit Primary Care Radha Sierra MD [address] [place], [place] [id number] [facility] PhysiciansStart: 03-04-2021 COVID-19 Vaccine (3 - Booster for Pfizer series)COVID-19 Vaccine (3 - Booster for Pfizer series)[facility]HealthStart: 86-52-9090HALPD-19 Vaccine (3 - Booster for Pfizer series)COVID-19 Vaccine (3 - Booster for Pfizer series)OhioHealthStart: 23-89-4161Vlhevnr and physical examination, annual for health maintenance Wellness VisitOhioHealthStart: 89-48-1073Zxvxxyvuei screening using PHQ-9 (Patient Health Questionnaire 9) scoreDEPRESSION SCREENING (PHQ9)[facility] Start: 08-59-7323Mcmymkgte for substance abuseSUBSTANCE ABUSE SCREENING (AUDIT-C)[facility]HealthStart: 05-05-2019 End: 21-71-5585Ghxaic Visit05/05/2019 Office Visit Primary Care Nahum Reaves, [address] [place] [address] [phone] [facility] PhysiciansStart: 10-01-2018 End: 84-17-0915Exuuzw Visit10/01/2018 Office Visit Primary Care Nahum Reaves CNP [address] [place] [address] [phone] [facility] PhysiciansStart: 03-29-2018 End: 70-01-6161Gsysmybcgb41/02/2018 Office Visit Primary Care Nini Pelletier CNP [address] [place] [address] [phone] [facility] PhysiciansStart: 80-51-1470Ncpcebcii vaccination givenSEQUENTIAL INFLUENZA VACCINE (#1)[facility]: 09-25-2017 Ywmqolshod91/01/2018 Office Visit Primary Care Nini Pelletier CNP [address] [place] [address] [phone] [facility] PhysiciansStart: 62-95-9368DVNCVJCSQ (FIT-DNA)COLOGUARD (FIT-DNA)[facility] Hospitaltart: 98-40-2165EalyhpfgbslRIQNJVSJLUYBvccxcydi Clinic Start: 92-23-5097TKMFWGWSMH CANCER SCREENINGCOLORECTAL CANCER SCREENINGMercy Health St. Joseph Warren Hospitaltart: 22-61-5115VG COLONOGRAPHYCT COLONOGRAPHYMercy Health St. Joseph Warren Hospitaltart: 94-90-6226DUEGYEQH SCREENDIABETES SCREENMercy Health St. Joseph Warren Hospitaltart: 49-02-6292EXWJC OCCULT BLOODFECAL OCCULT BLOODMercy Health St. Joseph Warren Hospitaltart: 30-54-8863ZMPCV SCREENLIPID SCREENMercy Health St. Joseph Warren Hospitaltart: 73-51-3364JTMWVAEQCKPSKDNFSDXMJGFYBTOdmbsyion ClinicStart: 58-37-1840Cymqavscms79/03/2018 Office Visit Primary Care Nini Pelletier CNP [address] [place] [address] [phone] [facility] PhysiciansStart: 49-92-1827Wnwvvkduts 08/07/2017 Office Visit Primary Care Nini Pelletier CNP [address] [place] [address] [phone] [facility] PhysiciansStart: 33-82-0638FnaplwqohfbTAJZSKGOZCfnopyjkb Clinic Start: 19-41-4452Zcayqxmoo for malignant neoplasm of breastMammogramOhioHealth Start: 33-79-6118WUS TESTINGHPV TESTINGMercy Health St. Joseph Warren Hospitaltart: 06-28-8386LFN TESTINGPAP TESTINGMercy Health St. Joseph Warren Hospitaltart: 38-01-1453Qqalj microalbumin profile DTAP,TDAP,TD (1 - Tdap)[facility] Hospitaltart: 23-92-6684Wtcwnslor C screening Hepatitis C ScreeningOhioHealthStart: 68-30-0294NIVVJJMLS C SCREENINGHEPATITIS C SCREENINGMercy Health St. Joseph Warren Hospitaltart: 72-89-3309FCA SCREENINGHIV SCREENINGMercy Health St. Joseph Warren Hospitaltart: 07-21-7857ZLL screeningHIV ScreeningOhioHealthStart: 09-24-1975 History and physical examination, annual for health maintenanceNav[facility] Visit [facility]Start: 85-96-6695UOVGMAMJS B (1 of 3 - 3-dose series)HEPATITIS B (1 of 3 - 3-dose series)[facility] Hospitaltart: 93-60-0409Ymkbnle mass concMammogram OhioHealthStart: 73-62-1662Xvxgneetm for malignant neoplasm of cervixPAP SMEAR OhioHealthStart: 15-04-7895Vzzkgipou for malignant neoplasm of colonOhioHealth Start: 45-06-6304Mvjdvnezf mammographyMammogramWvioHealthCologuardCologuard Lab Routine Colon cancer screening Ordered: 2OhioHealthComment on above: Ordered: 09/22/2021 End: 43-39-5000Thpgfwhl blood count with white cell differential, manualCBC and Differential Lab Routine Unexplained weight loss 1 Occurrences starting 04/04/2019 until 04/04/2020OhioHealthComment on above:1 Occurrences starting 04/04/2019 until 04/04/2020 End: 25-76-9509Brluyvylzadxa metabolic 2000 panelComprehensive Metabolic Panel Lab Routine HTN 1 Occurrences starting 04/04/2019 until 04/04/2020[facility] Comment on above:1 Occurrences starting 04/04/2019 until 04/04/2020 End: 72-92-9679Saslesbslodgm metabolic 2000 panel - Serum or PlasmaComprehensive Metabolic Panel Lab Routine 1 Occurrences starting 09/22/2021 until 09/22/2022 OhioHealthComment on above:1 Occurrences starting 09/22/2021 until 09/22/2022 Comprehensive metabolic 2000 panel - Serum or PlasmaComprehensive Metabolic Panel Lab Routine 09/22/2021 12:11 PM EDTOhioHeal End: 80-12-0095Ymjhyqdweoatr metabolic panel [AGGREGATE]Comprehensive Metabolic Panel Routine HTN 1 Occurrences starting 07/31/2017 until 07/31/2018WvioThe Bellevue Hospital Comprehensive metabolic panel [AGGREGATE]Comprehensive Metabolic Panel Routine HTN 07/31/2017 10:43 AM [facility] End: 38-62-3717BvJ8t (Bld) [Mass fraction]Hemoglobin A1c Lab Routine Family history of diabetes mellitus 1 Occurrences starting 04/04/2019 until 04/04/2020 [facility] HospitalComment on above:1 Occurrences starting 04/04/2019 until 04/04/2020 End: 62-60-0821Cdlwijomjg A1c/Hemoglobin.total in BloodHemoglobin A1c Lab Routine 1 Occurrences starting 09/22/2021 until 09/22/2022OhioHealthComment on above:1 Occurrences starting 09/22/2021 until 09/22/2022Hemoglobin A1c/Hemoglobin.total in BloodHemoglobin A1c Lab Routine 09/22/2021 12:11 PM EDT [facility] End: 33-59-7014Zmphfhdwa C antibody measurementHepatitis C Antibody Lab Routine Healthcare maintenance 1 Occurrences starting 09/22/2021 until 09/22/2022 OhioHealthComment on above:1 Occurrences starting 09/22/2021 until 09/22/2022 Hepatitis C antibody measurementHepatitis C Antibody Lab Routine Healthcare maintenance 09/22/2021 12:11 PM EDTOhioHeal End: 18-88-4465Ettrd immunodeficiency virus antibody testHIV 1/2 Screen (4th Generation) Lab Routine Healthcare maintenance 1 Occurrences starting 09/22/2021 until 09/22/2022OhioHealthComment on above:1 Occurrences starting 09/22/2021 until 09/22/2022Human immunodeficiency virus antibody testHIV 1/2 Screen (4th Generation) Lab Routine Healthcare maintenance 09/22/2021 12:11 PM EDTOhioHeal End: 43-68-9971Frujk 1996 panelLipid Panel Lab Routine HTN 1 Occurrences starting 04/04/2019 until 04/04/2020OhioHealthComment on above:1 Occurrences starting 04/04/2019 until 04/04/2020 End: 57-19-6599Dkwin 1996 panel - Serum or PlasmaLipid Panel Lab Routine Hyperlipidemia, unspecified hyperlipidemia type 1 Occurrences starting 09/22 until 09/22/2022OhioHealthComment on above:1 Occurrences starting 09/22/2021 until 09/22/2022Lipid 1996 panel - Serum or PlasmaLipid Panel Lab Routine Hyperlipidemia, unspecified hyperlipidemia type 09/22/2021 12:11 PM EDT [facility] End: 95-81-3146Zvclc panelLipid Panel Routine Hyperlipidemia, Unspecified Hyperlipidemia Type 1 Occurrences starting 07/31/2017 until 07/31/2018OhioThe [facility] Hospital Lipid panelLipid Panel Routine Hyperlipidemia, unspecified hyperlipidemia type 07/31/2017 10:43 AM ESTOhioHealth End: 16-26-9913GZT SCREENING W TOMOMAM SCREENING W ROO[place]T Radiology Routine Atypical ductal hyperplasia of left breast Encounter for screening mammogram for malignant neoplasm of breast 1 Occurrences starting 08/02/2022 until 09/01/2023 [facility] Work Phone: Comment on above:1 Occurrences starting 08/02/2022 until 09/01/2023 End: 42-11-9977CC Breast - bilateral screeningMammography Screening Bilateral Imaging Routine Screening for malignant neoplasm of breast 1 Occurrences starting 04/04/2019 until 06/04/2020OhioHealthComment on above:1 Occurrences starting 04/04/2019 until 06/04/2020 End: 65-62-3635UB Breast - bilateral ScreeningMammography Screening [place] Bilateral Imaging Routine Encounter for screening for malignant neoplasmof breast, unspecified screening modality 1 Occurrences starting 09/22/2021 until 11/22/2022OhioHealthComment on above:1 Occurrences starting 09/22/2021 until 11/22/2022 End: 59-27-2046Kbglvjevcexe measurement, urine, quantitative Microalbumin/Creatinine Ratio, UR Random Lab Routine HTN 1 Occurrences starting 04/04/2019 until 04/04/2020OhioHealthComment on above:1 Occurrences starting 04/04/2019 until 04/04/2020Microalbumin, Urine, RandomMicroalbumin, Urine, Random Routine HTN 07/31/2017 10:43 AM ESTOhioHealthOUTSIDE SURG PATH SLIDE REVIEWOUTSIDE SURG PATH SLIDE REVIEW Lab Routine Ordered: [address] [place] [address] Work Phone: Comment on above:Ordered: 08/02/2022Renal function 1999 panel - [facility] 1999 panel - Serum or [facility] End: 58-18-6755Vdatqjzbvjk [Units/volume] in Serum or PlasmaTSH with Reflex Free T4 Lab Routine Acquired hypothyroidism 1 Occurrences starting 09/22/2021 until 09/22/2022[facility] Work Phone: Comment on above:1 Occurrences starting 09/22/2021 until 09/22/2022Thyrotropin [Units/volume] in Serum or PlasmaTSH with Reflex Free T4 Lab Routine Acquired hypothyroidism 09/22/2021 12:11 PM EDTOhioHeal End: 62-58-2209ESJ QnTSH Lab Routine Acquired hypothyroidism 1 Occurrences starting 04/04/2019 until 04/04/2020OhioHealthComment on above:1 Occurrences starting 04/04/2019 until 04/04/2020 End: 42-63-1336KRG with Reflex Free T4TSH with Reflex Free T4 Routine Acquired hypothyroidism 1 Occurrences starting 07/31/2017 until 07/31/2018OhioHealthTSH with Reflex Free T4TSH with Reflex Free T4 Routine Acquired hypothyroidism 07/31/2017 10:43 AM [facility]Health[facility] Immunizations Immunization DateImmunizationNotesCare UbvzgexhWrvcehdw78-19-2028xkwntqofw virus vaccine, unspecified formulationMichael NILL General Surgery Khkyxile55-36-8985Mbruwkhu, trivalent, recombinant, injectable influenza vaccine, preservative Alisa Sierra MD Work Phone: [phone]lkdur95-45-0561AKLY-KoP-3 (COVID-19) mRNA BNT- 162b2 vaxMichael NILL General Surgery BellueComment on above:Result Comment: 2022-06-20: MVU8739-50-6174GZCQ-ZmK-1 (COVID-19) mRNA BNT-162b2 luisx Christopher LANDERSKasi General Surgery BellevueComment on above:Result Comment: 2022-06-20: DAV0638-19-7658ojrzwid toxoid, reduced diphtheria toxoid, and acellular pertussis vaccine, adsorbed; Translations:[TDAP]Nini Pelletier ExwbCfnevc48-65-6370jldyjhipuo skin test; purified protein derivative solution, intradermal; Translations: [PPD TEST][facility] Payers DatePayer CategoryPayerPolicy ID2021Medicaid [id number] [id number] 2015 Medicaidxxxxxxxxxxxx [id number] 1994MedicareMEDICARE MEDICARE PART A & B xxxxxxxxxxx 1993-Present [place] [id number] 1994Medicare [id number] 2.0.1.104399.3.57[id number] 2.840.1.359050.3.579.[id number] 2.840.1.822923.3.57[id number] 2.840.1.659426.3.57[id number] 2.840.1.389440.3.579.[id number] 2.840.1.573589.3.579.2.31348-05-5124Rxkbgpc32734797 2.840.1.978894.3.579.2.30408-38-5552Mcfparo70554224 2.840.1.067166.3.579.2.50922-13-4974Ncbknfy63764085 2.840.1.891589.3.579.2.42180-03-0100Xbcjcss05413245 2.0.1.032797.3.579.2.10978-35-2613Bvfgedo26457888 2.840.1.765747.3.579.2.59868-30-8658Dtgiqae34639056 2.0.1.632673.3.579.2.22872-24-4545Vbwlbbi0893392 2.0.1.816981.3.579.2.16422-81-1148Kaqnpxf1166787 2.0.1.192584.3.579.2.65778-46-8295Nrnuhfg6396897 2.0.1.702559.3.579.2.31272-43-8373Ewxhcxo1667951 2.0.1.377683.3.579.2.69854-26-6465Hxxhssz4676924 2.840.1.868796.3.579.2.80258-85-4061Typykid6900822 2.0.1.982515.3.579.2.08572-58-9187Zzeqbgs8796924 2.840.1.792219.3.579.2.48186-73-2207Tkdowww5070303 2.840.1.906268.3.579.2.89553-50-7135Vuronno4898324 2..840.1.910844.3.579.2.88820-57-6843Xkwtatg6367819 2..840.1.285064.3.579.2.93085-94-0099Oansxmb8453050 2..840.1.208245.3.579.2.47953-51-4258Tsjvasd5830548 2.840.1.367885.3.579.2.68940-45-0974Aiezsnq96397551 2.840.1.543213.3.579.2.800546-19-2432Zzdqhvz35859281 2.840.1.416105.3.579.2.600711-89-8227Ylpsmod81974480 2.0.1.685489.3.579.2.628551-02-6015Rsejezj337472865 2.840.1.976621.3.579.2.175 [id number] 1960Medicare [id number] [id number] Social History DateTypeDetailFacilityStart: 09-26-2017 End: 68-39-7896Kzjvyvc smoking status NHISNever smokerOhioHealthStart: 50-67-4217Ygg Assigned At BirthNot on fileOhioHealthStart: 04-04-2019 End: 09-67-5528Smfozvs intakeCurrent non-drinker of alcohol (finding)[facility] Start: 04-04-2019 End: 35-80-9062Icbufhz SDOH Food Wctwi9FsbeZfhilrCtdrn: 04-04-2019 End: 12-54-2973Qjsgogu use and exposureSmokeless tobacco non-userOhioHealth Start: 09-11-2021 End: 43-80-0388Jbbecuoa to SARS-CoV-2 (event)Not sureOhioHealthTobacco smoking statusNeverGeneral Surgery BellevueSex Assigned At [facility] HospitalHistory of tobacco usePassive smokerMercy Health St. [facility] Hospitaltart: 04-18-7932Efaaetk intakeEx-drinker (finding)[facility] Hospitaltart: 88-66-4762Kvt Assigned At [facility] Functional Status VlsrUyykmuhsygZyawliTcuwyicu36-60-3957Zwchdorcwg StatusN/AGeneral Surgery [place] Clinical Notes 09-22-2021 to 02-13-2023 Note Date & RytzUevyWtlqvjuc21-03-8981 Evaluation note* Encounter Date Diagnosis Assessment Notes Treatment Notes Treatment Clinical Notes Jan, Chronic kidney disease, stage 3b (ICD-10 - N18.32) Chronic kidney disease is likely from hypertensive nephropathy. I do not have labs available to me.I do not know the baseline creatinine. It is unknown if the patient has hematuria and or hematuria.I will check renal function panel prior to next visit along with UA with protein to creatinine ratio. I will check renal ultrasound. Blood pressure and volume status are well controlled. Advised the p atient to avoid NSAIDs completely. I will follow-up with the patient in 3 months Jan,Hypertensive nephropathy (ICD-10 - I12.9)Blood pressure seems well controlled. Volume status is also well controlled I will continue same blood pressure medication. Advised the patient to follow a low salt diet and to monitor blood pressureat home Jan,Vitamin D deficiency (ICD-10 - E55.9)I will check 25-hydroxy vitamin D along with PTH, calcium and phosphorus next visit Jan,Hyperlipidemia, unspecified hyperlipidemia type (ICD-10 - E78.5) Follows with PCP for hyperlipidemia management. [employer] Other 03-08-2023 NoteHNO ID: [id number] Author: Kaden Golden MD Service: ? Author Type: Physician Type: Progress Notes Filed: 08/02/2022 4:01 PM Note Text: PATIENT NAME: Lindsey Burrows Christ [facility] NO.: [id number] ATTENDING PHYSICIAN: Kaden Golden MD DATE OF [...] in pharmacologic risk reduc (more content not included)...[facility]03-08-2023 History of Present illness Narrative* Kaden Golden MD - 08/02/2022 3:28 PM EST Images from the original note were not included. PATIENT NAME: Lindsey Polo CLINIC NO.: [id number] ATTENDING PHYSICIAN: Kaden Golden MD DATE OF [...] ABSMONO, EOSINP, ABSEOSIN, BASOP, ABSBASO PATH: Kasi Anton Lumpectomy 06/2022: IMAGING: Mammogram and US [...] number below. Kaden Golden M.D. Hematology/Medical Oncology [facility] [phone] CC: MD Leonardo Richards NP [facility]St[facility] Telephone encounter Note * Telephone Encounter - Rashad Ashley MA - 07/17/2022 11:35 AM EST Patient needs an appointment WmhvOjgeyh03-15-3539 Miscellaneous Notes* Telephone Encounter - Rashad Ashley MA - 07/17/2022 11:35 AM EST Patient needs an appointment documented in this svhexxgyvBusfOyieam40-10-9249 NoteOPERATIVE NOTE OPERATION DATE: 07/12/2022 PREOPERATIVE DIAGNOSIS: [...] room in good condition. CC: Patient's family physicianOhiohealth [facility]-2023 NoteChief Complaint consultation for abnormal mammogram/biopsy HPI [...] mcg= 1 tab(s), Oral, Daily Potassium Chloride (Ioh-Duli-Bpx M20) 20 mEq oral tablet, extended release, [...] SARS-CoV-2 (COVID-19) mRNA BN (more content not included)...[facility] CenterComment on above:Result Comment: Electronically Signed By: TEODORO MALIK, Christopher Douglas.br\Date and Time Signed: 06/20/22 14:54 SZV95-54-8947 NoteOPERATIVE NOTE OPERATION DATE: 04/12/2022 PREOPERATIVE DIAGNOSIS: [...] recovery room in good condition. CC: Leonardo Lenz, [place] [address]-16-2022 NoteOPERATIVE NOTE OPERATION DATE: 04/12/2022 ADDENDUM: Follow up colonoscopy for screening should be in [address] [facility] HospitalRhtpgulj25-50-1021 NoteChief Complaint consultation for screening colonoscopy HPI [...] mcg= 1 tab(s), Oral, Daily Potassium Chloride (App-Bdcx-Wau M20) 20 mEq oral tablet, extended release, [...] Use:., 03/08/2022 Family History Family history is negativeTrumbull Regional Medical CenterComment on above:Result Comment: Electronically Signed By: TEODORO MALIK, Christopher Ragland\Date and Time Signed: 03/08/22 16:55 CIY09-85-3248 Evaluation + Plan note* Assessment & Plan Note - Radha Sierra MD - 09/22/2021 12:07 PM EDTAssociated Problem(s): Prediabetes Noted on last A1c Rechecking A1c FyefKrftbr20-74-3975 Miscellaneous Notes* Assessment & Plan Note - [...] synthroid at current dose. documented in this qxoqspaglGpdaUuqwli84-57-7148 Evaluation + Plan note* Assessment & Plan Note - Radha Sierra MD - 09/22/2021 12:06 PM EDTAssociated Problem(s): Elevated serum creatinine Noted on last blood work in 2019. Rechecking labs. WtbiVfpyxs32-58-5426 Evaluation + Plan note* Assessment & Plan Note - Radha Sierra MD - 09/22/2021 12:04 PM EDTAssociated Problem(s): Sinus tachycardia, chronic Chronic. Asymptomatic. Appears to have had this as far back as 2016 per chart review. Not sure it has been worked up Will need to discuss starting a BB at next visit and cardiology referral. ThdiVakjox60-68-4071 Evaluation + Plan note* Assessment & Plan Note - Radha Sierra MD - 09/22/2021 12:02 PM EDTAssociated Problem(s): Hyperlipidemia Chronic. On Zocor. Continue. Checking lipid panel. QeqdPqmolk42-74-4019 Evaluation + Plan note* Assessment & Plan Note - Radha Sierra MD - 09/22/2021 11:59 AM EDTAssociated Problem(s): HTN Chronic. Not at goal. Asymptomatic. Does not take her medications consistently. Encouraged her to do this. No changes to meds at this time given inconsistent use. Will see back in 3 weeks and re-evaluate. ShguGckjvb87-13-4075 Evaluation + Plan note* Assessment & Plan Note - Radha Sierra MD - 09/22/2021 11:57 AM EDTAssociated Problem(s): Hypothyroidism Chronic. Reports stable blood levels on Synthroid 25 mg Rechecking labs today Refilled synthroid at current dose. ImfyLeczxn53-97-3001 History of Present illness Narrative* Radha Sierra [...] presents for Chief Complaint Patient presents with [facility] Care Here with her caregiver Gely who [...] List Diagnosis Hyperlipidemia HTN Hypothyroidism Intellectual disability (CORBIN Hong [facility] Hospitalchristine, ) Short stature Hearing loss Underweight Sinus [...] difficult at all - documented in this encounterFort [facility] HospitalEvaluation + Plan note No data available for this section [facility] [place] Evaluation + Plan noteGeneral Surgery [place] evaluation note* Diagnosis HTN- Primary Essential hypertension, benign Acquired hypothyroidism Unspecified hypothyroidism Hyperlipidemia, unspecified hyperlipidemia type Encounter for screening for malignant neoplasm of breast, unspecified screening modality Sinus tachycardia, chronic Other specified cardiac dysrhythmias Elevated serum creatinine Other nonspecific findings on examination of blood Prediabetes Other abnormal glucose [facility]* Diagnosis HTN- Primary Essential hypertension, benign Acquired hypothyroidism Unspecified hypothyroidism Hyperlipidemia, unspecified hyperlipidemia type Encounter for screening for malignant neoplasm of breast, unspecified screening modality Sinus tachycardia, chronic Other specified cardiac dysrhythmias Elevated serum creatinine Other nonspecific findings on examination of blood Prediabetes Other abnormal glucose documented in this [facility]* Diagnosis Acquired hypothyroidism Unspecified hypothyroidism documented in this encounter [facility]* Diagnosis Atypical ductal hyperplasia of left breast- Primary Encounter for screening mammogram for malignant neoplasm of breast Other screening mammogram documented [facility]* Diagnosis HTN Essential hypertension, benign documented in this encounter [facility] HospitalEvaluation noteNo [place]Rock [place] [employer] Other evaluation note* Diagnosis Onset Date Resolution Status Chronic kidney disease, stage 3b acuteHyperlipidemiaacuteHypertensive nephropathyacuteHypokalemiaacute HypomagnesemiaacuteVitamin D deficiencyacute [facility] Work Phone: evaluation note* Diagnosis Onset Date Resolution Status OSMANY (acute kidney injury) acuteChronic kidney disease, stage 3bacuteHyperkalemiaacuteHyperlipidemiaacute Hypertensive nephropathyacuteHypokalemiaacuteHypomagnesemiaacuteVitamin D deficiencyacute [facility] Work Phone: History general Narrative - Reported* Type Description Date Medical History CKD 3b Medical HistoryHYPERTENSIONMedical HistoryHYPERLIPIDEMIAMedical History OSTEOPOROSISMedical HistoryHYPOTHYROIDISMSurgical HistoryLEFT BREAST [id number] [employer] Other Hospital Discharge instructions No data available for this section General Surgery [place] Progress note No data available for this section [facility] [place] Reason for referral (narrative) Referred by: Christopher VALERIO MD [facility] [place] Rehuei for referral (narrative)* Diagnostic Procedure Only (Routine) - Pending ReviewSpecialtyDiagnoses / ProceduresReferred By ContactReferred To ContactBR IMAGING Diagnoses Atypical ductal hyperplasia of left breast Encounter for screening mammogram for malignant neoplasm of breast Procedures MAURICIO SCREENING W ROOSEVELT SCREENING DIGITAL BREAST TOMOSYNTHESIS BI SCREENING MAMMOGRAPHY BI 2-VIEW BREAST INC CAD Kaden Golden MD [address] [place] [address] [facility] [address] [place] [phone] Referral IDStatusReasonStart DateExpiration DateVisits RequestedVisits [id number] Auto-Generated Referral / [facility] Instructions * Patient Instructions - Nini [...] Log into your personal health record on [email or web address] and enter H967 in the Education box to learn more about DASH Diet: Care Instructions. Current as of: May 02, 2017 Content Version: .20050704-8595 [employer]. Care instructions adapted under license by your healthcare professional. If you have questions about a medical condition or this instruction, always ask your healthcare professional. [employer] disclaims any warranty or liability for your [...] Log into your personal health record on [email or web address] and enter H967 in the Education box to learn more about DASH Diet: Care Instructions. Current as of: August 18, 2015 Content Version: 11.2 8642-3729 [employer]. Care instructions adapted under license by your healthcare professional. If you have questions about a medical condition or this instruction, always ask your healthcare professional. [employer] disclaims any warranty or liability for your [...] Log into your personal health record on [email or web address] and enter H967 in the Education box to learn more about DASH Diet: Care Instructions. Current as of: August 18, 2015 Content Version: 11.2 8684-5597 [employer]. Care instructions adapted under license by your healthcare professional. If you have questions about a medical condition or this instruction, always ask your healthcare professional. [employer] disclaims any warranty or liability for your [...] Log into your personal health record on [email or web address] and enter X567 in the Education box to learn more about High Blood Pressure: Care Instructions. Current as of: January 03, 2016 Content Version: 11.2 9194-7476 [employer]. Care instructions adapted under license by your healthcare professional. If you have questions about a medical condition or this instruction, always ask your healthcare professional. [employer] disclaims any warranty or liability for your [...] Log into your personal health record on [email or web address] and enter P501 in the Education box to learn more about Learning About High Blood Pressure. Current as of: August 18, 2015 Content Version: 11.2 6711-1199 [employer]. Care instructions adapted under license by your healthcare professional. If you have questions about a medical condition or this instruction, always ask your healthcare professional. [employer] disclaims any warranty or liability for your use of this information. in this encounter Assessments DiagnosisHTN Essential hypertension, benign Acquired hypothyroidism Unspecified hypothyroidism DiagnosisHTN Essential hypertension, benign DiagnosisHTN - Primary Essential hypertension, benign Acquired hypothyroidism Unspecified hypothyroidism Hypokalemia Hypopotassemia DiagnosisHyperlipidemia, unspecified hyperlipidemia type - PrimaryHTN Essential hypertension, benign Acquired hypothyroidism Unspecified hypothyroidism [...] Patient Name: Lindsey Polo : 1970 Location: [address] [place] [id number] ASSESSMENT: Diagnoses and all orders for this visit: Bilateral hearing loss, unspecified hearing loss type Intellectual disability (CORBIN Kelleychristine, ) Short stature PLAN: -Form completed for [employer]. Pt appears to be appropriate for this [...] with her transportation through her work place ([employer]). She reports that the driversare rude and sometimes don't come . She spoke to the pt's [employer] cyanide case hardener (Johnson Cheek) re:the situation. She suggested that the pt try using [employer]. Pt needs the application signed. Pt's cousin [...] would like to start using the [employer]. Review of Systems Constitutional: Negative for activity [...] Name: Lindsey Polo : 1970 Location: [address] [facility], [place] [address] ASSESSMENT: Diagnoses and all orders for this [...] Directive (Living Will and/or Durable Power of University Internship for Health Care)?: Copy on file What [...] file Gets together: Not on file Attends jainism service: Not on file Active member of club or organization: Not on file Attends meetings of clubs or organizations: Not on file Relationship status: Not on file Other Topics Concern Not on file Social History Narrative Not on file Allergies: No Known Allergies Care Team Patient Care Team: Nahum Reaves CNP as PCP - General (Nurse Practitioner) Pharmacy / Equipment Co. (DME) [id number] [place], [place] - [address] [facility] [address] [facility] [id number] Objective Blood pressure (!) 155/89, pulse 95, [...] patient. documented in this encounter Advance Directives TypeDate RecordedPatient RepresentativeExplanationAdvance Directives and Living WillTypeDate RecordedPatient RepresentativeExplanationAdvance Directives and Living Will09/22/2021 10:52 AM Advance Directive Response Recorded Date/ Time Advance Directives No October 16 3:53pm Summary Purpose Family History Relationship Condition Age at Onset Recorded Date/T yakelin father Unknown Reason for Referral StatusReasonSpecialtyDiagnoses / ProceduresReferred By ContactReferred To ContactAuthorizedGastroenterology Diagnoses Unexplained weight loss Suraj Addison MD [address] [place] [address] Rudy Sanchez, DO [address] [facility] [address] [place] [address] StatusReasonSpecialtyDiagnoses / ProceduresReferred By ContactReferred To ContactAuthorized Service Not Available Internally Audiology Diagnoses Hearing loss, unspecified hearing loss type, unspecified laterality Suraj Addison MD [address] [place] [address] Kamaljit Viera [address] [place] [address] StatusReasonSpecialtyDiagnoses / ProceduresReferred By ContactReferred To ContactAuthorized Service Not Available Internally Nephrology Diagnoses Hypertension, benign Suraj Addison MD [address] [place] [address] Marilee Song MD [address] [facility] [address] [place] [address] StatusReasonSpecialtyDiagnoses / ProceduresReferred By ContactReferred To ContactPending ReviewRadiology Diagnoses Screening for malignant neoplasm of breast Procedures Mammography Screening Bilateral Suraj Addison MD [address] [place] [address] SpecialtyDiagnoses / ProceduresReferred By ContactReferred To ContactRadiology / Central Scheduling Diagnoses Encounter for screening for malignant neoplasm of breast, unspecified screening modality Procedures Mammography Screening Roosevelt Bilateral Radha Sierra MD [address] [place] [address] Central Scheduling [address] [place] [address] Referral IDStatusReasonStart DateExpiration DateVisits RequestedVisits [id number] Specialty Services Required/Patient's Best Interest Chief Complaint and Reason for Visit Chief Complaint RENAL 6 month f/u Reason for Visit Chronic kidney disea se, stage 3b Hyperlipidemia Hypertensive nephropathy Hypokalemia Hypomagnesemia Vitamin D deficiency Chief Complaint RENAL 4 MONTH F/U Reason for Visit OSMANY (acute kidney in jury) Chronic kidney disease, stage 3b Hyperkalemia Hyperlipidemia Hypertensive nephropathy Hypokalemia Hypomagnesemia Vitamin D deficiency Additional Source Comments Reason for Visit (unrecogniz ed section and content) ReasonCommentsEstablish Careneeds paperwork filled out for mainstreamReason CommentsMedicare Wellness VisitGap Closure (Health Maintenance)mammogram - adv to schedule. pap - due. wellness - today. flu vaccine - due.ReasonComments Establish CareReasonCommentsMedication RefillReasonCommentsBreast CancerNew patient consultation INFORMATION SOURCE (unrecogn ized section and content) DATE CREATED AUTHOR 04/30/2020 [facility] DATE CREATED AUTHOR AUTHOR'S ORGANIZ ATION 09/27/2021 [facility] DATE CREATED AUTHOR AUTHOR'S ORGANIZ ATION 08/04/2022 [facility] DATE CREATED AUTHOR AUTHOR'S ORGANIZ ATION 08/08/2022 [facility] DATE CREATED AUTHOR AUTHOR'S ORGANIZ ATION 08/21/2022 [facility] DATE CREATED AUTHOR AUTHOR'S ORGANIZ ATION 01/21/2024 [facility] DATE CREATED AUTHOR AUTHOR'S ORGANIZ ATION 01/24/2024 [facility] DATE CREATED AUTHOR AUTHOR'S ORGANIZ ATION 01/25/2024 [facility] Care Teams (unrecognized sec tion and content) Team Status: Active Member Role Status Dates Natasha Kelley APRN Primary Care Provider Active Team Status: Inactive Member Role Status Dates Natasha Kelley APRN Primary Care Provider Active Start: February 26, 2024 End: February 25Rica Daugherty ProviderActiveStart: February 26, 2024 End: February 26, 2024Team MemberRelationshipSpecialtyStart DateEnd Date Radha Sierra MD [address] [place] [facility] [address] [facility] - [facility]/22/21Team MemberRelationshipSpecialtyStart DateEnd Date Radha Sierra MD [address] [place] [facility] [address] PCP - [facility] Medicine09/22/21Team MemberRelationshipSpecialtyStart DateEnd Date Radha Sierra MD [address] [place] [facility] [address] [facility] - [facility]09/22/21Team MemberRelationshipSpecialtyStart DateEnd Date Leonardo Lenz(Historical), PHYSICIAN OFFICE SECRETARY PCP - GeneralPrimary Care07/31/22 Janie Toscano [address] [place] [address] DR CORRAL, [facility] OB/GYN07/31/22Team MemberRelationshipSpecialtyStart DateEnd Date Radha Sierra MD [address] [place] [facility] [address] PCP - [facility] Medicine09/22/21 Team Status: Active Member Role Status Dates Natasha Kelley APRN Primary Care Provider Active Team Status: Active Member Role Status Dates Leonardo Lenz [facility]- Primary Care Provider Active Start: November 05, 2023 Corazon Krishna MDAttending ProviderActiveStart: November 05, 2023 Team Status: Inactive Member Role Status Dates Corazon Krishna MD Attending Provider Active Star t: November 14, 2023 End: November 14, 2023Ana Albarado Care ProviderActiveStart: November 14, 2023 End: November 14, 2023 Team Status: Inactive Member Role Status Dates Natasha Kelley APRN Primary Care Provider Active Start: February 26, 2024 End: February 25Rica Daugherty ProviderActiveStart: February 26, 2024 End: February 26, 2024 Source Comments (unrecognize d section and content) In the event this informatio n is protected by the Federal Confidentiality of Alcohol and Drug Abuse Patient Records regulations: The Federal rules restrict any use of the information to criminally investigate or prosecute any alcohol or drug abuse patient.[facility] Goals (unrecognized section and content) Goals [...] BE BASED ON THE PRIMARY CLINICAL RECORDS. [facility]. provides no warranty or guarantee of the accuracy or completeness of information in this document.
[2025-04-02 11:19] LABS: Microalbum Creatinine Ratio Ur 95.2 mg/g (0.0-29.9)
== END 2025-04-02 10:15 | disposition home or self-care (01) ==
LOC: LAB 10:18
PROVIDERS: PCP Internal Medicine; Visit Provider Internal Medicine
DX: E78.2 Mixed hyperlipidemia (principal); E11.9 Type 2 diabetes mellitus without complications; E03.9 Hypothyroidism, unspecified; I10 Essential (primary) hypertension
CPT/HCPCS: 36415; 80053; 80061; 82043; 82570; 84439; 84443

== ENCOUNTER 2025-04-03 11:20 | Outpatient (OUT) | payer MEDICARE, MEDICAID, SELFPAY ==
--- OUTSIDE RECORDS SUMMARY | 2024-06-09 10:15 | XMS_ITS ---
Author Organization [facility] vices Address [address] [place] [id number] Care Team Providers Care Screen Cleaner Name Role Phone Alta Plummer Primary Care Provider REASON FOR VISIT HTN & Labs Social History Sex Assigned At : Social History Observation Description Sex Assigned At Female Encounters Encounter Location Date Provider Diagnosis Main [address] [place] [place] [id number] 06/09/2024 Alta Plummer Plan Of Treatment Next Appt Details Provider Name:Alta Plummer, 09/21/2025 02:00:00 PM, [address], [id number], Progress Notes * Divya POLODOB: (54 yo F)Acc No.[id number]:06/09/2024 Medical Note Patient: Reggie GOODROQUE Divya Yoder :?Alta Elian, MDDOB:1970???Age:53 Y???Sex: FemaleDate:06/09/2024Phone:[phone]:Misbah ALCARAZ [id number] Subjective: * Chief Complaints: * 1 . HTN & Labs. * Medical History: Objective: * Vitals: Assessment: Plan: * Treatment: * Billing Information: * Visit Code: * Procedure Codes: * Electronic signature of Alta Plummer MD on 04/03/2025 at 11:23 AM ESTSign off status: Pending * Provider: David Plummer MD Date: 0 06/09/2024 Generated for Printing/Faxing/eTransmitting on:?04/03/2025 11:23 AM EST
--- OUTSIDE RECORDS SUMMARY | 2024-09-29 08:30 | XMS_ITS ---
Author Organization [facility] vices Address [address] [place] [id number] Care Team Providers Care Quotation Checker Name Role Phone Alta Plummer Primary Care Provider REASON FOR VISIT F/U HTN Social History Sex Assigned At : Social History Observation Description Sex Assigned At Female Encounters Encounter Location Date Provider Diagnosis Main [address] [place] [id number] 09/29/2024 Alta Plummer Plan Of Treatment Next Appt Details Provider Name:Alta Plummer, 09/21/2025 02:00:00 PM, [address] [place] [place], [id number], Progress Notes * Divya POLO AnnDOB: (54 yo F)Acc No.[id number]:09/29/2024 Medical Note Patient: Reggie GOODROQUE Divya Yoder :?Alta Elian, MDDOB:1970???Age:54 Y???Sex: FemaleDate:09/29/2024Phone:[phone]:Misbah ALCARAZ [id number] Subjective: * Chief Complaints: * 1 . F/U HTN. * Medical History: Objective: * Vitals: Assessment: Plan: * Treatment: * Billing Information: * Visit Code: * Procedure Codes: * Electronic signature of Alta Plummer MD on 04/03/2025 at 11:24 AM ESTSign off status: Pending * Provider: David Plummre MD Date: 0 09/29/2024 Generated for Printing/Faxing/eTransmitting on:?04/03/2025 11:24 AM EST
--- OUTSIDE RECORDS SUMMARY | 2024-11-24 09:45 | XMS_ITS ---
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 Role Phone Alta Plummer Primary Care Provider REASON FOR VISIT 4 week HTN Social History Sex Assigned At : Social History Observation Description Sex Assigned At Female Encounters Encounter Location Date Provider Diagnosis Main [address] [place] [id number] 11/24/2024 Alta Plummer Plan Of Treatment Next Appt Details Provider Name:Alta Plummer, 09/21/2025 02:00:00 PM, [address] [place], [id number], Progress Notes * Divya POLODOB: (54 yo F)Acc No.[id number]:11/24/2024 Medical Note Patient: Reggie GOODROQUE Divya Yoder :?Alta Elian, MDDOB:1970???Age:54 Y???Sex: FemaleDate:11/24/2024Phone:[phone]:Misbah ALCARAZ [id number] Subjective: * Chief Complaints: * 1 . 4 week HTN. * Medical History: Objective: * Vitals: Assessment: Plan: * Treatment: * Billing Information: * Visit Code: * Procedure Codes: * Electronic signature of Alta Plummer MD on 04/03/2025 at 11:24 AM ESTSign off status: Pending * Provider: David Plummer MD Date: 0 11/24/2024 Generated for Printing/Faxing/eTransmitting on:?04/03/2025 11:24 AM EST
--- OUTSIDE RECORDS SUMMARY | 2025-03-24 10:45 | XMS_ITS ---
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 Name Role Phone Alta Plummer Primary Care Provider Allergies Allergen (clinical drug ingredient) Drug/Non Drug Allergy documented on EMR Reaction Allergy Type Onset Date Status SeasonaleUnknownDrug AllergyActive Results Component Value Reference Range Notes POCT A1C Reviewed date:03/24/2025 04:02:42 PM Interpretation: Performing Lab: Notes/Report: Result 6.4 0-5.6 % REASON FOR VISIT HTN & HLD Medications Medication SIG (Take, Route, Frequency, Duration) Notes Start Date End Date Status Alendronate Sodium 35 MG 1 tablet 30 min utes before the first food, beverage or medicine of the day with plain water Orally once a week ActiveVitamin D 25 MCG (1000 UT)1 tablet Orally Once a dayActiveCetirizine HCl 10 MG1 tablet Orally Once a day; Duration: 30 days09/13/2023ctiveMetoprolol Tartrate 50 MGTAKE 1 TABLET BY MOUTH TWICE A DAY WITH FOOD FOR 30 DAYS; Duration: 90ActiveAtorvastatin Calcium 40 MGTAKE 1 TABLET BY MOUTH EVERY DAY FOR 90 DAYS; Duration: 90ActiveLevothyroxine Sodium 25 MCG1 tablet in the morning on an empty stomach Orally Once a day; Duration: 30 daysActiveamLODIPine Besylate 10 MGTAKE 1 TABLET BY MOUTH EVERY DAY; Duration: 90ActiveFish Oil [place]-3 1000 MG1 capsule Orally Once a day; Duration: 90 days11/27/2022ctive Social History Tobacco Use: Social History Observation Description Date Details (start date - stop date) Never Smoker NA - NA Sex Assigned At : Social History Observation Description Sex Assigned At Female Tobacco Use/Smoking Question Answer Notes Tobacco use: nonsmoker patient enter ed data CAGE-AID Questionnaire (2018 Edition) Question Answer Notes Have you ever felt that you ought to cut down on your drinking or drug use? No patient entered data Have people annoyed you by c riticizing your drinking or drug use? No patient entered data Have you ever felt bad or gu ilty about your drinking or drug use? No patient entered data Have you ever had a drink or used drugs first thing in the morning to steady your nerves or to get rid of a hangover? No patient entered data CAGE-AID Score 0 InterpretationNegativePRAPARE Question Answer Notes Date Completed/Updated: 03/24/2025 clint nt entered data What is your current housing situation? I have housing patient entered data Are you worried about losing your housing? No patient entered data What is the highest level of school that you have finished? 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 Check all that apply I do not have problems meeting my needs Has lack of transportation kept you from medical appointments, meetings, work or from getting things needed for daily living?NoHow often do you see or talk to people that you care about and feel close to? (For example: talkingto friends on the phone, visiting friends or family, going to taoist or club meetings)1 or 2 times a weekpatient entered dataHow stressed are you? Stress is when someone feels tense, nervous, anxious, or can't sleep at nightbecause their mind is troubledA little bitpatient entered dataIn the past year have you spent more than 2 nights in a row in a detention, long term, senior care center, orjuvenile correctional facility?Nopatient entered dataAre you a refugee?Nopatient entered dataWhat country are you from?[place] Statespatient entered dataDo you feel physically and emotionally safe where you currently live?Yespatient entered dataIn the past year, have you been afraid of your partner or ex-partner?I have not had a partner in the past yearpatient entered data PRAPARE Score:7 Problems Problem Type SNOMED Code ICD Code Onset Dates Problem Status W/U Status Risk Notes Problem Type II diabetes ese litus without complication (772166986) Diet-controlled diabetes mellitus (E11.9) ActiveconfirmedProblemDevelopmental delay (482994463)Developmental disability (F89)Activeconfirmed Vital Signs Temperature 99 degrees Fahrenheit 03/24/2025 Weight 73.4 lbs 03/24/2025 Height 54 in 03/24/2025 BMI 17.7 kg/m2 03/24/2025 Blood pressure systolic 136 mm Hg 03/24/20 25 Blood pressure diastolic 83 mm Hg 025 Heart Rate 84 /min 03/24/2025 Respiratory Rate 18 /min 03/24/2025 Oximetry 98 % 03/24/2025 Weight-kg 33.29 kg 03/24/2025 Cory Falguni 03/24/2025 0 3:56:28 PM EDT > Encounters Encounter Location Date Provider Diagnosis Main [address] [place], [place] [id number] 03/24/2025 Alta Plummer Primary hypertension I10 ; Mixed hyperlipidemia E78.2 ; Acquired hypothyroidism E03.9 ; Diet-controlled diabetes mellitus E11.9 ; Developmental disability F89 ; BMI less than 19,adult Z68.1 ; Dietary counseling Z71.3 and Exercise counseling Z71.82 Assessments Encounter Date Diagnosis (ICD Code) Assessment Notes Treatment Notes Treatment Clinical Notes Section Notes 03/24/2025 Primary hypertension (ICD-10 - I 10) Bp well controlled. Continue current kswhdajenft59/28/2025Mixed hyperlipidemia (ICD-10 - E78.2)Repeat labs today. Continue statin and low fat diet.03/24/2025 Acquired hypothyroidism (ICD-10 - E03.9)dx for lab03/24/2025Diet-controlled diabetes mellitus (ICD-10 - E11.9) A1c stable 6.4 today. Advise to continue to manage with diet and exercise. f/u in 6 month 03/24/2025Developmental disability (ICD-10 - F89)Pt is slow and hard for her to comprehend things per her cousin who always help her with her appointments. 03/24/2025MI less than 19,adult (ICD-10 - Z68.1)03/24/2025Dietary counseling (ICD-10 - Z71.3)03/24/2025Exercise counseling (ICD-10 - Z71.82) Plan Of Treatment Treatment Notes Assessment Notes Primary hypertension Bp well controlled. Continue current medications Mixed hyperlipidemia Repeat labs today. Continue statin and low fat diet. Diet-controlled diabetes mellitus A1c stable 6.4 today. Advise to continue to manage with diet and exercise. f/u in al disability Pt is slow and hard for her to comprehend things per her cousin who always help her with her appointments. Pending Test Test Name Order Date LIPID PANEL WITH REFLEX TO DIRECT LDL COMPREHENSIVE METABOLIC PANEL WITH GFR 1 Next Appt Details Follow Up: 6 Months, Reason: DM, thyroid, HTN and HLD Provider Name:Alta Plummer, 09/21/2025 02:00:00 PM, [address], [place], [id number], Progress Notes * REAGANEDUARDO Divyavalentin YoderDOB: (54 yo F)Acc No.[id number]:03/24/2025 Medical Note Patient: Divya SNYDER :?Alta Plummer MDDOB:1970???Age:54 Y???Sex: FemaleDate:03/24/2025Phone:[phone]:[address], [id number] In:03:50 PM EST Subjective: * Chief Complaints: * H TN & HLD * HPI: ???Interim History:? HTN f/u: Home medication regimen: Amlodipine 10 mg daily and Metoprolol 25 mg bid Home BP readings: at home 130s/80s Previously on lisinopril but stopped due to kidney problems Patient denies headache, vision changes, chest pain, shortness of breath/difficulty breathing, decreased exercise tolerance, dizziness/lightheadedness HLD f/u: Atovastatin 40 mg daily Tolerating Statin well. Last lab work: September 2024 elevated Also pt is diabetic with Last A1c 6.5 in September but not on any meds, currently managing with diet. Pt has developmental diasability and want note to get excuse from Jury duty. ???Depression screening:?PHQ-9?Little interest or pleasure in doing things Nearly every day patient entered data ?Feeling down, depressed, or hopeless?Not at all patient entered data ?Trouble falling or staying asleep, or sleeping too much?Not at all patient entered data ?Feeling tired or having little energy?Not at all patient entered data ?Poor appetite or overeating?Not at all patient entered data ?Feeling bad about yourself or that you are a failure, or have let yourself or your family down?Several days patient entered data ?Trouble concentrating on things, such as reading the newspaper or watching television?Several days patient entered data ?Moving or speaking so slowly that other people could have noticed; or the opposite, being so fidgety or restless that you have been moving arounda lot more than usual?Several days patient entered data ?Thoughts that you would be better off orof hurting yourself in some way?Not at all patient entered data ?Total Score?6 ?Interpretation?Mild Depression * ROS: ???Negative except mentioned above in the HPI. * Medical History: * Surgical History: B reast Biopsy (L) reast surgery- remove cancer 2022 * Hospitalization/Major Diagno stic Procedure: k idney issue 01/24/2024see surgical hx * Family History: F ather: . M other: alive. P aternal Grand Father: . P aternal Grand Mother: . M aternal Grand Father: . M aternal Grand Mother: .?Brother: , diagnosed with Heart Disease. her brother recently from a heart attack. 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 Watching a video patient entered data ?How often do you need to have someone help you read instructions?? Always patient entered data ???Tobacco Use:?Tobacco Use/Smoking?Tobacco use:?nonsmoker patient entered data ???Drugs/Alcohol/Caffeine:?CAGE-AID Questionnaire (2018 Edition)?Have you ever felt that you ought to cut downon your drinking or drug use??No patient entered data ?Have people annoyed you by criticizing your drinking or drug use??No patient entered data ?Have you ever felt bad or guilty about your drinking or drug use??No patient entered data ?Have you ever had a drink or used drugs firstthing in the morning to steady your nerves or to get rid of a hangover??No patient entered data ?CAGE-AID Score?0 ?Interpretation?Negative ???Social Determinants:?PRAPARE?Date Completed/Updated:?03/24/2025 patient entered data ?What is your current housing situation??I have housing patient entered data ?Are you worried about losing your housing? 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 Check all that a pply?I do not have problems meeting my needs ?Has lack of transportation kept you from medical appointments, meetings, work or from getting things needed for daily living??No ?How often do you see or talk to people that you care about and feel close to? (For example: talking to friends on the phone, visiting friends or f amily, going to taoist or club meetings)?1 or 2 times a week patient entered data ?How stressed are you? Stress is when someone feels tense, nervous, anxious, or can't sleep at night because their mind is troubled?A little bit patient entered data ?In the past year have you spent more than 2 nights in a row in a detention, long term, senior care center, or juvenile correctional facility??No patient entered data ?Are you a refugee??No patient entered data ?What country are you from??[place] patient entered data ?Do you feel physically and emotionally safe where you currently live?? Yes patient entered data ?In the past year, have you been afraid of your partner or ex-partner??I have not had a partner in the past year patient entered data ?PRAPARE Score:?7 * Medications: T akingFish Oil [place]-3 1000 MG Capsule 1 capsule Orally Once a day Levothyroxine Sodium 25 MCG Tablet 1 tablet in the morning on an empty stomach Orally Once a day amLODIPine Besylate 10 MG Tablet TAKE 1 TABLET BY MOUTH EVERY DAY Metoprolol Tartrate 50 MG Tablet TAKE 1 TABLET BY MOUTH TWICE A DAY WITH FOOD FOR 30 DAYS Atorvastatin Calcium 40 MG Tablet TAKE 1 TABLET BY MOUTH EVERY DAY FOR 90 DAYS Vitamin D 25 MCG (1000 UT) Tablet 1 tablet Orally Once a day Cetirizine HCl 10 MG Tablet 1 tablet Orally Once a day Alendronate Sodium 35 MG Tablet 1 tablet 30 minutes before the first food, beverage or medicine of the day with plain water Orally once a week Medication List reviewed and reconciled with the patientTaking Fish Oil [place]-3 1000 MG Capsule 1 capsule Orally Once a day Taking Levothyroxine Sodium 25 MCG Tablet 1 tablet in the morning on an empty stomach Orally Once a day Taking amLODIPine Besylate 10 MG Tablet TAKE 1 TABLET BY MOUTH EVERY DAY Taking Metoprolol Tartrate 50 MG Tablet TAKE 1 TABLET BY MOUTH TWICE A DAY WITH FOOD FOR 30 DAYS Taking Atorvastatin Calcium 40 MG Tablet TAKE 1 TABLET BY MOUTH EVERY DAY FOR 90 DAYS Taking Vitamin D 25 MCG (1000 UT) Tablet 1 tablet Orally Once a day Taking Cetirizine HCl 10 MG Tablet 1 tablet Orally Once a day Taking Alendronate Sodium 35 MG Tablet 1 tablet 30 minutes before the first food, beverage or medicine of the day with plain water Orally once a week Medication List reviewed and reconciled with the patient * Allergies: Josue espinoza[Allergies Verified] Objective: * Vitals: T emp:99F, Wt:73.4lbs, Ht: 54 in, BMI:17.7Index, BP:136/83mm Hg, HR:84/min, RR:18/min, Pain scale:01-10, Oxygen sat %:98%, Wt-k.29 kg, Body Surface Area: 1.13. Falguni Ray 03/24/2025 03:56:28 PM EDT >. * Examination: ???General Examination: ???General appearance: alert, pleasant, well-nourished and in no acute distress. Head: normocephalic, atraumatic. Eyes: pupils equal, round, reactive to light and accommodation. Skin: skin is warm and dry, with no rashes, good skin turgor and normal hair distribution. Heart: regular rate and rhythm without murmurs, gallops, clicks or rubs. Lungs: clear to auscultation bilaterally, with good air movement and no rales, rhonchi or wheezes. Extremities: normal extremity with no clubbing, cyanosis or edema , full range of motion. Psych: alert and oriented x 3 , cooperative with exam , normal affect / mood , speech is clear and coherent. Assessment: * Assessment: 1.?Primary hypertension - I10 (Primary)???2.?Mixed hyperlipidemia - E78.2&# 160;??3.?Acquired hypothyroidism - E03.9???Notes :dx for lab???4.?Diet- controlled diabetes mellitus - E11.9???5.?Developmental disability - F89???6.?BMI less than 19,adult - Z68.1???7. Dietary counseling - Z71.3???8.?Exercise counseling - Z71.82?? Plan: * Treatment: ?LAB: COMPREHENSIVE METABOLIC PANEL WITH GFR Notes: Bp well controlled. Continue current medications ??2.?Mixed hyperlipidemia?LAB: LIPID PANEL WITH REFLEX TO DIRECT LDL Notes: Repeat labs today. Continue statin and low fat diet.??3.?Acquired hypothyroidism?LAB: TSH WITH FT4 REFLEX4.?Diet-controlled diabetes mellitus?LAB: MICROALBUMIN RANDOM SPEC ?LAB: POCT A1C (Collection Date & Time - 03/24/2025 04:02 PM)* ?ValueReference Range?Result6.4HH0-5.6 - % * Falguni Ray 03/24/2025 0 4:02:30 PM EDT > . Notes: A1c stable 6.4 today. Advise to continue to manage with diet and exercise. f/u in 6 month??5.?Developmental disability? Notes: Pt is slow and hard for her to comprehend things per her cousin who always help her with herappointments. ?? * Procedure Codes: 8 3036 GLYCATED HEMOGLOBIN TEST, Modifiers: QW 3079F HTN DIAST BP = 80-511603O DM HG A1C < 31736F HTN SYST BP = 130 - 3756206N TOBACCO NON-USER * Preventive Medicine: ??Counseling:?Care goal follow-up plan:?Nutrition/Dietary Counseling provided Yes ?BMI management provided?Yes * Follow Up: 6 Months (Reason: DM, thyroid, HTN and HLD) * Billing Information: * Visit Code: 06002 Office Visit Est 30-39 minutes. * Procedure Codes: 95815 GLYCATED HEMOGLOBIN TEST. Modifiers: QW 3079F HTN DIAST BP = 80-89. 3044F DM HG A1C < 7. 3075F HTN SYST BP = 130 - 139. 1036F TOBACCO NON-USER. * ign off status: Completed true * Provider: David Plummer MD Date: 1 Generated for Printing/Faxing/eTransmitting on:?04/03/2025 11:23 AM EST History and Physical Notes * HPI (History of Present Illness) CategorySub-CategoryDetailNotesCategory NotesDepression screeningPHQ-9Little interest or pleasure in doing things: Nearly every daypatient entered data Feeling down, depressed, or hopeless: Not at allpatient entered dataTrouble falling or staying asleep, or sleeping too much: Not at allpatient entered dataFeeling tired or having little energy: Not at allpatient entered dataPoor appetite or overeating: Not at allpatient entered dataFeeling bad about yourself or that you are a failure, or have let yourself or your family down: Several dayspatient entered dataTrouble concentrating on things, such as reading the newspaper or watching television: Several dayspatient entered dataMoving or speaking so slowly that other people could have noticed; or the opposite, being so fidgety or restless that you have been moving around a lot more than usual: Several dayspatient entered dataThoughts that you would be better off or of hurting yourself in some way: Not at allpatient entered dataTotal Score: 6Interpretation: Mild Depression Examination CategorySub-CategoryDetailNotesCategory NotesGeneral Examination General appearance: alert, pleasant, well-nourished and in no acute distress. Head: normocephalic, atraumatic. Eyes: pupils equal, round, reactive to light and accommodation. Skin: skin is warm and dry, with no rashes, good skin turgor and normal hair distribution. Heart: regular rate and rhythm without murmurs, gallops, clicks or rubs. Lungs: clear to auscultation bilaterally, with good air movement and no rales, rhonchi or wheezes. Extremities: normal extremity with no clubbing, cyanosis or edema , full range of motion. Psych: alert and oriented x 3 , cooperative with exam , normal affect / mood , speech is clear and coherent.
--- OUTSIDE RECORDS SUMMARY | 2025-04-03 11:24 | XMS_ITS | Patient Health Record ---
Author Organization [facility] vices Address [address] [place], [place] [address] Care Team Providers Care Embroidery Specialist Name Role Phone Alta Plummer Primary Care Provider [phone] Teja Hare Unavailable [phone] Natasha Kelley Unavailable [phone] Corina Arenas Unavailable Allergies Allergen (clinical drug ingredient) Drug/Non Drug Allergy documented on EMR Reaction Allergy Type Onset Date Status SeasonaleUnknownDrug AllergyActive Results Component Value Reference Range Notes Free T4 Reviewed date:04/02/2025 12:43:22 PM Interpretation: Performing Lab: Notes/Report: , [facility] Free T4 1.14 0.76-1.46 ng/dL Performing Lab:see noteML - [facility] LBMicroalbumin Creatinine Ratio Reviewed date:04/02/2025 11:59:17 AM Interpretation: Performing Lab: Notes/Report: [facility] ,Microalbumin Urine Ivbcyq53.3<=30.0 mg/dLCreatinine Urine Lzmfzi348.5920.00- 300.00 mg/dLMicroalbum Creatinine Ratio Ur95.20.0-29.9 mg/g NO MICROALBUMINURIA 0-29 MG/G CLINICAL MICROALBUMINURIA 30-300 MG/G MACROALBUMINURIA >300 MG/G Performing Lab:see noteML - [facility] LBPOCT A1C Reviewed date:03/24/2025 04:02:42 PM Interpretation: Performing Lab: Notes/Report:Comprehensive Metabolic Panel Reviewed date:10/13/2024 12:55:58 PM Interpretation: Performing Lab: Notes/Report: , [facility]wDarbfk693961-425 mmol/LPotassium4.03.5-5.1 mmol/LChloride 68165-441 mmol/LCarbon Vohowkk48.921.0-32.0 mmol/LAnion Gap9.0Mxxwovu27667-588 mg/dLBlood Urea Sxxtfvcp13.07.0-18.0 mg/dLCreatinine1.660.55-1.02 mg/dLEstimated GFR ( Vkluftn86>=60 mL/min/1.73m 2Estimated GFR (Non- Ame32>=60 mL/min/1.73m 2BUN Creatinine Ratio19.3Ycvjtpy8.58.5-10.1 mg/dLBilirubin Total0.3 0.2-1.0 mg/dLAspartate Amino Kldxtmxlgbo5115-51 U/LAlanine Ordrxqwmhlqsikyu4176- 59 U/LAlkaline Zkrhkaunbhv2109-043 U/LTotal Protein7.96.4-8.2 g/dLAlbumin Level 3.93.4-5.0 g/dLGlobulin4.0Albumin Globulin Ratio1.0Performing Lab:see noteML - [facility] LBLipid Panel Reviewed date:10/13/2024 12:55:58 PM Interpretation: Performing Lab: Notes/Report: , [facility] HospitalNkhfmhgvUzrqnbjwtpwiy66<=150 mg/oWVtnrxeibogi027<=200 mg/dLHDL Abpxsovhjaj3377-97 mg/dL > or =60 mg/dl - LOW CARDIOVASCULAR RISK <40 mg/dl - HIGH CARDIOVASCULAR RISK LDL Cholesterol Eilmpchbsu441.0 <100 mg/dl OPTIMAL 100-129 mg/dl NEAR OR ABOVE OPTIMAL 130-159 mg/dl BORDERLINE HIGH 160-189 mg/dl HIGH >190 mg/dl VERY HIGH VLDL EGKKDADJFVF95.4Chol HDL Ratio2.9 3.3 - 4.4 LOW RISK 4.4 - 7.1 AVERAGE RISK 7.1 - 11.0 MODERATE RISK >11.0 HIGH RISK Performing Lab:see noteML - [facility] LBTSH W/ REFLEX FT4 Reviewed date:10/13/2024 12:55:58 PM Interpretation: Performing Lab: Notes/Report: [facility] ,TSH W/ REFLEX FT42.2360.358-3.740 uIU/mLPerforming Lab:see note - [facility] LBGlycohemoglobin A1C Reviewed date:10/13/2024 12:33:21 PM Interpretation: Performing Lab: Notes/Report: , [facility] A1C6.54.5-6.2 % ADA RECOMMENDED LIMIT 4.0 - 6.0 ADA THERAPEUTIC TARGET < 7.0 ACTION SUGGESTED > 7.0 Estimated Average Jxbroee664Obyqyemxeb Lab:see noteML - [facility] LB POCT A1C Reviewed date:04/14/2024 04:50:34 PM Interpretation: Performing Lab: Notes/Report: Reason For Referral Reason PLease evaluate and treat accordingly EXT 17 and 32 partially impacted with decay. Eval and treat accordingly #29 PARL Diagnosis 1 Impacted tooth (K01. 1) Diagnosis 2 Tooth decay (K02.9) Referral Organization [facility] Referring Provider First Name Teja Referring Provider Last Name Ananya Referring Provider Speciality [facility] Referred Provider OpenVPN System, automatic i threading machine feeder Referred Provider Specialty Oral Surgery General Notes [...] DAY WITH FOOD FOR 30 DAYS; Duration: ActiveAtorvastatin Calcium 40 MGTAKE 1 TABLET BY MOUTH EVERY DAY FOR 90 DAYS; Duration: 90ActiveLevothyroxine Sodium 25 MCG1 tablet in the morning on an empty stomach Orally Once a day; Duration: 30 daysActiveamLODIPine Besylate 10 MGTAKE 1 TABLET BY MOUTH EVERY DAY; Duration: 90ActiveFish Oil [place]-3 1000 MG1 capsule Orally Once a day; Duration: 90 days11/27/2022ctive Immunizations Vaccine Route Administration Date Status Comme nts *Jmywvuxbc-Tijcymplf-Wsget te IM Intramuscular 03/05/2023 Administered *Tdap (Adacel)-PrivateIM Umtdjgizzjnwt36/03/2023dministeredInfluenza, seasonal, injectable, preservative free, 3 yrs and lnqkqPliuwuu53/13/2025Administered Social History Tobacco Use: Social History Observation [...] data 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 Stress is when someone feels tense, nervous, anxious, or can't sleep at nightbecause their mind is troubledA little bitpatient entered dataIn the past year have you spent more than 2 nights in a row in a care home, halfway, nursing home center, orjuvenile correctional facility?Nopatient entered dataAre you [...] W/U Status Risk Notes Problem Seasonal allergy (854689647) Seasonal all ergies (J30.2) ActiveconfirmedProblemDevelopmental delay (726078003)Developmental disability (F89)ActiveconfirmedProblemType II diabetes mellitus without complication (964736107)Diet-controlled diabetes mellitus (E11.9)ActiveconfirmedProblemMixed hyperlipidemia (648272757)Mixed hyperlipidemia (E78.2)Activeconfirmeddx for lab ProblemAge-related osteoporosis (954255958)Age-related osteoporosis without current pathological fracture (M81.0)ActiveconfirmedProblemType II diabetes mellitus without complication (628796772)Type 2 diabetes mellitus without complication, without long-term current use of insulin (E11.9)05/17/2022ctive confirmedProblemAcquired hypothyroidism (862643869)Acquired hypothyroidism (E03.9)Activeconfirmeddx for labProblemPrimary hypertension (76096613)Primary hypertension (I10)ActiveconfirmedProblemChronic kidney disease stage 3B (disorder) (310661572)Stage 3b chronic kidney disease (N18.32)Activeconfirmed ProblemElevated liver enzymes level (580081053)Elevated liver enzymes (R74.8) Problem resolvedconfirmed Vital Signs Heart Rate 84 /min 03/24/2025 Falguni Ray 03/24/2025 03:56:28 PM EDT > Temperature 99 degrees Fahrenheit 03/24/2025 Falguni Ray 03/24/2025 03:56:28 PM EDT > Respiratory Rate 18 /min 03/24/2025 Saul Ray 03/24/2025 03:56:28 PM EDT > Blood pressure diastolic 83 mm Hg 03/24/2025 Falguni Harrell 03/24/2025 03:56:28 PM EDT > Oximetry 98 % 03/24/2025 Falguni Ray 03/24/2025 03:56:28 PM EDT > Weight-kg 33.29 [...] Date Provider Diagnosis Main [address] [place] [id number] 04/14/2024 Alta Elian Mixed hyperlipidemia E78.2 ; Prediabetes R73.03 ; Acquired hypothyroidism E03.9 and Primary hypertension I10 [address] [place], [place] [id number] 05/05/2024 Alta Elian Primary hypertension I10 and Acquired hypothyroidism E03.9 [facility] [address] [place], [place] [id number] 06/27/2024 Teja Penaloza Encounter for screen ing for dental disorders Z13.84 and Encounter for dental examination and cleaning with abnormal findings Z01.21 [facility] [address] [place], [place] [id number] 07/21/2024 Teja Penaloza Encounter for dental examination and cleaning without abnormal findings Z01.20 and Encounter for dental examination and cleaning with abnormal findings Z01.21 [address] [place], [place] [id number] 10/06/2024 Alta Elian Primary hypertension I10 ; Mixed hyperlipidemia E78.2 ; Acquired hypothyroidism E03.9 and Pre-diabetes R73.03 Main [address] [place], [place] [id number] 10/27/2024 Alta Elian Type 2 diabetes bob itus without complication, without long-term current use of insulin E11.9 ; Acquired hypothyroidism E03.9 ; Mixed hyperlipidemia E78.2 ; Primary hypertension I10 and Stage 3b chronic kidney disease N18.32 [facility] [address] [place], [place] [id number] 11/17/2024 Teja Penaloza Encounter for dental examination and cleaning with abnormal findings Z01.21 and Necrosis of pulp K04.1 [address] [place], [place] [id number] 03/24/2025 Alta Elian Primary hypertension I10 ; Mixed hyperlipidemia E78.2 ; Acquired hypothyroidism E03.9 ; Diet-controlled diabetes mellitus E11.9 ; Developmental disability F89 ; BMI less than 19,adult Z68.1 ; Dietary counseling Z71.3 and Exercise counseling Z71.82 [address] [place], [place] [id number] 04/08/2024 Natasha Kelley Primary hypertension I10 [address] [place], [place] [id number] 04/11/2024 Corina Arenas [address] [place], [place] [id number]/19/2024Natasha KelleyUwQwrg[address] [place], [place] [id number]/01/2025Ramsha [address] [place], [place] [address]/02/2025Ramsha [address] [place], [place] [id number] 08/26/2024Fabrandt McNealPrimary hypertension I10 and Acquired hypothyroidism E03.[address] [place] [place] [id number]/05/2024Ramsha [address] [place], [place] [address]/08/2024Ramsha [address] [place], [place] [id number]/Ramsha Elian Assessments Encounter Date Diagnosis (ICD Code) Assessment Notes Treatment Notes Treatment Clinical Notes Section Notes 05/05/2024 Primary hypertension (ICD-10 - I 10) BP noted to be elevated. again today. [...] having diet low in salt and exercise. 04/08/2024rimary hypertension (ICD-10 - I10)04/14/2024Mixed hyperlipidemia (ICD-10 - E78.2)Due for blood work04/14/2024rediabetes (ICD-10 - R73.03)A1c 6.0 today still in prediabetic range. Advised to continue to manage with diet and exercise.06/27/2024Encounter for screening for dental disorders (ICD-10 - Z13.84)07/21/2024Encounter for dental examination and cleaning without abnormal findings (ICD-10 - Z01.20)08/26/2024Primary hypertension (ICD-10 - I10) 10/06/2024Mixed hyperlipidemia (ICD-10 - E78.2)dx for lab06/02/2025Type 2 diabetes mellitus without complication, without long-term current use of insulin (ICD-10 - E11.9)A1c 6.5 in diabetic range now. With her kidney function I will avoid metformin. discussed starting Jardiance but pt and her guardian (cousin who was present with her) decline starting a medication atthis point and want to see if it can be managed with diet alone. will f/u in 3 idkhaq545Acquired hypothyroidism (ICD-10 - E03.9)Stable. Advised to continue current dose of levothyroxine. Will repeat labs in 6 months.10/06/2024Primary hypertension (ICD- 10 - I10)Bp well controlled. Continue current ogmohemnchv33/23/2025Encounter for dental examination and cleaning with abnormal findings (ICD-10 - Z01.21) 03/24/2025Mixed hyperlipidemia (ICD-10 - E78.2)Repeat labs today. Continue statin and low fat diet.03/24/2025Primary hypertension (ICD-10 - I10)Bp well controlled. Continue current rzxcifigwsy99/28/2025Acquired hypothyroidism (ICD- 10 - E03.9)dx for lab10/27/2024Mixed hyperlipidemia (ICD-10 - E78.2) Recommend statin with [...] repeat the lipid profile in 6 months 05/05/2024cquired hypothyroidism (ICD-10 - E03.9)Due for labs. Advised to continue current dose of Levothyroxine and will f/u with blood work.11/17/2024 Necrosis of pulp (ICD-10 - K04.1)5Acquired hypothyroidism (ICD-10 - E03.9)dx for lab07/21/2024Encounter for dental examination and cleaning with abnormal findings (ICD-10 - Z01.21)5Acquired hypothyroidism (ICD-10 - E03.9)4Acquired hypothyroidism (ICD-10 - E03.9)due for labs06/27/2024 Encounter for dental examination and cleaning with abnormal findings (ICD-10 - Z01.21)4Primary hypertension (ICD-10 - I10) BP noted to [...] disease (ICD-10 - N18.32)Managed by kidney specialist. Bmskjx835BMI less than 19,adult (ICD-10 - Z68.1)03/24/2025 Dietary counseling (ICD-10 - Z71.3)03/24/2025Exercise counseling (ICD-10 - Z71.82)10/06/2024Other Student Attestation Verbal Consent: Patient gives consent to be seen by a medical student. Student Name: Pilar Carreno Attestation: As the teaching provider, I have personally performed or re-performed the history of presenting illness, physical exam and medical decision-making activities of the encounter and verified the Medical/ENDODONTICS DENTIST/PA student's documentation. I have made pertinent changes as necessary to ensure accurate documentation. Plan Of Treatment Pending Test Test Name Order Date LIPID PANEL WITH REFLEX TO DIRECT LDL COMPREHENSIVE METABOLIC PANEL WITH GFR 1 Next Appt Details Provider Name:Alta Plummer, 09/21/2025 02:00:00 PM, [address], [place], [id number], Insurance Providers Payer Name Payer Address Payer Phone Subscriber Number Group Number Insured Name Patient Relationship to Insured Coverage Start Date Coverage End Date Medicare NGS PPS [address] [place], [place] [id number] Jessica Polo - patient is the [id number] [address] [place], [place] [id number], AliciaSelf - patient is the [id number] 2024Medicaid [address] [place], [place] [id number], AliciaSelf - patient is the [id number] 2022 Medical (General) History Medical History History ICD Code HTN (hypertension) I10 Hyperlipemia E78.5 Osteoporosis M81.0 Hypothyroidism E03.9 Elevated liver enzymes (resolved 022) undefined Acute kidney injury N17.9 Surgical History Surgery Date(Month/Year) Breast Biopsy (L) 2021 breast surgery- remove cancer 2022 Hospitalization History Reason Date(Month/Year) kidney issue 01/24/2024 see surgical hx
--- OUTSIDE RECORDS SUMMARY | 2025-04-03 11:24 | XMS_ITS | Clinical Summary ---
Author Organization [facility] tem Address [id number] [address] [place] [address] Care Team Providers Care Department Of Mathematics Chair Name Role Phone Natasha Kelley MACHINE LACER-HAM CLERK Primary Care Provider [phone] Allergies No known active allergies Medications MedicationSigDispense [...] Tobacco UseTypesPacks/DayYears UsedDateSmoking Tobacco: Never AssessedChildcare AnswerDate KljmvmusGbwoflbnuRndkxtl57/12/2019EmploymentAnswerDate Recorded XlyphyqmkwMjpqwgl17/12/2019Hunger ScreeningAnswerDate RecordedWithin the past 12 months we worried whether our food would run out before we got money to buy more.Never True01/20/2024Within the past 12 months the food we bought just didn't last and we didn't have money to get more.Never True01/20/2024 CommentsNoSex and Gender InformationValueDate RecordedSex Assigned at BirthNot on fileLegal ItpTysfbu32/06/2015 11:46 AM EDTGender IdentityNot on fileSexual OrientationNot on file Last Filed Vital Signs Vital SignReadingTime TakenCommentsBlood Uqiwciry824/5508/ 5:07 PM EDT Hfcdb82854/ 5:07 PM NLCIxjyrygqwks21.6 ??C (97.9 ??F)01/20/2024 12:59 PM EDTRespiratory Wopa157401/20/2024 2:38 PM EDTOxygen Agjrbduagc017%01/20/2024 5:07 PM EDTInhaled Oxygen Concentration--Jeguxz63.3 kg (80 lb)01/20/2024 12:59 PM EDT Txipyz557.8 cm (4' 9 )01/20/2024 12:59 PM EDTBody Mass Index17.31001/20/2024 12:59 PM EDT Plan of Treatment Health MaintenanceDue DateLast DoneCommentsDepression Zahtqyrbl64/29/1985Tobacco Nzqwqewor59/29/1985Pap Smear1993Zoster (Shingles) Vaccine (1 of 2) 2022dult BMI Iniygrfjo70/OVID-19 Vaccine ( - season)505/12/2020, 09/11/2020Influenza Qbszhvo390/01/2023, 2DTaP,Tdap and Td Vaccines (3 - Td or Tdap)/07/2022, 08/03/2014 Medical Devices Not on file [place] [address] [place] [id number] Care Teams Team MemberRelationshipSpecialtyStart DateEnd Date Natasha Kelley, KARINA-HAM CLERK [address] [place] [address] [place] [address] [facility] - [facility]/24
--- OUTSIDE RECORDS SUMMARY | 2025-04-03 11:24 | XMS_ITS | CCD ---
Author Organization [facility] CliniSyma Care Team Providers Care Edge Plugger Name Role Phone Nini Pelletier Unavailable Mildred [...] Reaves Primary Care Provider Rigo MALIK, [facility] P rovider RADHA SIERRA Primary Care Unavailabl e Rigo MALIK, [facility] Primary Care P rovider LEONARDO LENZ Primary Care Physician Shammo SENIOR DATABASE ENGINEER, Leonardo(Historical) Primary Care Provid er Unavailable Janie Toscano Unavailable [phone] SHAMMO, LEONARDO Primary Care Unavailable NILL, [...] Christopher R Attending Unavailable Rigo MALIK, [facility] Primary Care P rovider KADEN [...] Corazon Krishna Unavailable LYNN STARKEY Attending Unavailable [facility] Unavailable LYNN STARKEY Attending Unavailable LYNN STARKEY Referring Unavailable [facility] Unavailable LYNN STARKEY Referring Unavailable [facility] Unavailable DAVID SAKEW Consulting Unavailable MACKENZIE WESTON Admitting Unavailable DAMON JUAREZ Attending Unavailable [facility] Unavailable NANCY PENA Consulting Unavailable Allergies Allergy ClassificationReported Allergen(s)Allergy TypeDate of OnsetReaction(s) Facility (1 source)No Known Medication Allergies; Translations: [No Known Medication Allergies]Propensity to adverse reactions (disorder)[facility] Repository Medications Current Medications MedicationDrug Class(es)DatesSig (Normalized)Sig (Original)alendronic acid 35 mg oral tablet (5 sources)BisphosphonateStart: 23-83-4254vdcg 1 tablet by mouth every week alendronate [...] oral tablet (20 sources)Dihydropyridine Calcium Channel BlockerStart: 64-94-4291fkwk 10 mg by mouth once dailyAmlodipine Active 10 MG PO Daily November 14, 2023 12:00am Start: 01-69-1341qfua 1 tablet by mouth once dailyamLODIPine (NORVASC) 10 mg tablet Take 10 mg by mouth once daily. 0 06/20/2022 ActiveStart: 04-30-2020 End: 02-64-6392rnmg 1 tablet by mouth once dailyamLODIPine 10 mg Tab 10 mg = 1 tab(s), Oral, Daily, Refills(s) 0 Start Date: 03/01/22 Status: OrderedStart: 06-07-2018 End: 32-34-2731iybf 1 tablet by mouth once dailyamLODIPine (NORVASC) 10 MG tablet Indications: Hypertension, benign Take 1 (one) tablet (10 mg total) by mouth daily . 30 tablet 1 04/04/2019 ActiveStart: 01-51-4832avlx 1 tablet by mouth once dailyamLODIPine (NORVASC) 10 MG tablet Indications: Hypertension, benign Take 1 (one) tablet (10 mg total) by mouth daily. 90 tablet 1 09/26/2017 ActiveStart: 08-28-2017 End: 23-20-3962tmft 1 tablet by mouth once dailyamLODIPine (NORVASC) 10 MG tablet Indications: Hypertension, benign Take 1 (one) tablet (10 mg total) by mouth daily. 30 tablet 1 08/28/2017 09/26/2017 DiscontinuedStart: 01-15-2017 End: 95-01-2225civl 1 tablet by mouth once dailyamLODIPine (NORVASC) 5 MG tablet Indications: Hypertension, benign Take 1 (one) tablet (5 mg total)by mouth daily. 30 tablet 1 07/31/2017 08/28/2017 DiscontinuedComment on above:Take 10 mg by mouth once daily.cetirizine hydrochloride 10 mg oral tablet (2 sources)Histamine-1 Receptor AntagonistStart: 53-18-2697Focgbqorra Active 10 MG PO November 14, 2023 12:00amOmega 6-Uze-Cnl-Fish Oil (2 sources)Start: 12-84-0597Bibxx 7-Vwd-Hmr-Fish Oil Active CAP PO November 14, 2023 12:00amsimvastatin 20 mg oral tablet (13 sources)HMG-CoA Reductase InhibitorStart: 04-30-2020 End: 09-49-3217ibvo 1 tablet by mouth once dailysimvastatin (ZOCOR) 20 MG tablet Indications: Hyperlipidemia, unspecified hyperlipidemia type Take 1 (one) tablet (20 mg total) by mouth daily . 90 tablet 1 09/22/2021 03/21/2022 ActiveStart: 06-07-2018 End: 78-11-8919ytto 1 tablet by mouth once dailysimvastatin (ZOCOR) 20 MG tablet Indications: Hyperlipidemia, unspecified hyperlipidemia type Take 1 (one) tablet (20 mg total) by mouth daily . 30 tablet 1 04/04/2019 ActiveStart: 05-03-2016 End: 06-68-0173mbvs 1 tablet by mouth once dailysimvastatin (ZOCOR) 20 MG tablet Indications: Hyperlipidemia, unspecified hyperlipidemia type Take 1 (one) tablet (20 mg total) by mouth daily. 90 tablet 1 07/31/2017 Activelevothyroxine sodium 0.025 mg oral tablet (20 sources)l-ThyroxineStart: 77-23-9852alco 1 tablet by mouth once daily levothyroxine 25 mcg (0.025 mg) Tab 25 mcg = 1 tab(s), Oral, Daily, Refills(s) 0 Start Date: 03/01/22 Status: OrderedStart: 10-01-2019 End: 72-61-4989wnec 1 tablet by mouth once daily in the morninglevothyroxine (SYNTHROID, LEVOTHROID) 25 MCG tablet Indications: Acquired hypothyroidism TAKE 1 (ONE) TABLET (25 MCG TOTAL) BY MOUTH EVERY MORNING . 90 tablet 1 03/03/2022 08/30/2022 ActiveStart: 06-07-2018 End: 18-75-4770tdbu 1 tablet by mouth once daily in the morninglevothyroxine (Synthroid) 25 MCG tablet Indications: Acquired hypothyroidism Take 1 (one) tablet (25 mcg total) by mouth every morning . 30 tablet 1 04/04/2019 Active Start: 82-44-9819pzsk 1 tablet by mouth once daily in the morninglevothyroxine (SYNTHROID) 25 MCG tablet Indications: Acquired hypothyroidism Take 1 (one) tablet (25 mcg total) by mouth every morning. 90 tablet 1 09/26/2017 Active Start: 05-03-2016 End: 02-33-0687syav 1 tablet by mouth once daily in the morninglevothyroxine (SYNTHROID) 25 MCG tablet Indications: Acquired hypothyroidism Take 1 (one) tablet (25 mcg total) by mouth every morning. 90 tablet 1 08/14/2017 09/26/2017 Discontinued Completed/Discontinued Medications MedicationDrug Class(es)DatesSig (Normalized)Sig (Original)blood pressure test kit-small Kit (6 sources)Start: 07-31-2017 End: 52-53-6542nrxgx pressure test kit-small Kit Indications: Hypertension, benign 1 kit by Miscellaneous route daily. 1 each 0 07/31/2017 04/04/2019 DiscontinuedStart: 65-38-8276nkfcr pressure test kit-small Kit Indications: Hypertension, benign 1 kit by Miscellaneous route daily. 1 each 0 07/31/2017 ActivecloNIDine hydrochloride 0.1 mg oral tablet (3 sources)Central alpha-2 Adrenergic AgonistStart: 07-31-2017 End: 85-67-5722ytsNBWkwt HCl (CATAPRES) tablet 0.2 mghydroCHLOROthiazide 25 mg / lisinopril 20 mg oral tablet (20 sources)Thiazide Diuretic, Angiotensin Converting Enzyme InhibitorStart: 11-14-2023 End: 66-16-2024okwl 1 tablet by mouth once dailyLisinopril-Hydrochlorothiazide Discontinued 1 TAB PO Daily November 14, 2023 12:00am February 26, 2024 4:08pm Start: 66-73-8258wyft 1 tablet by mouth once dailylisinopril-hydroCHLOROthiazide (PRINZIDE, ZESTORETIC) 20-25 mg per tablet Take 1 tablet by mouth once daily. 0 07/03/2022 ActiveStart: 04-30-2020 End: 18-11-6462shra 1 tablet by mouth once dailyhydrochlorothiazide-lisinopril 25 mg-20 mg Tab 1 tab(s), Oral, Daily, Refill(s) 0 Start Date: 03/01/22 Status: OrderedStart: 08-14-2017 End: 35-18-9042sylu 1 tablet by mouth once dailylisinopril-hydrochlorothiazide (PRINZIDE,ZESTORETIC) 20-25 mg per tablet Indications: Hypertension,benign Take 1 (one) tablet by mouth daily . 30 tablet 0 06/07/2018 04/04/2019 Discontinued (Reorder)Comment on above:Take 1 tablet by mouth once daily.lisinopril 10 mg oral tablet (4 sources)Angiotensin Converting Enzyme InhibitorStart: 06-07-2018 End: 61-61-1835aqak 1 tablet by mouth once dailylisinopril (PRINIVIL,ZESTRIL) 10 MG tablet Indications: Hypertension, benign Take 1 (one) tablet (10 mg total) by mouth daily . 30 tablet 3 06/07/2018 04/04/2019 DiscontinuedStart: 07-31-2017 End: 09-17-0788fvyb 2 tablets by mouth once daily, then take 1 tablet by mouth lisinopril (PRINIVIL,ZESTRIL) 10 MG tablet Indications: Hypertension, benign Take 2 (two) tablets (20 mg total) by mouth daily. 60 tablet 1 07/31/2017 08/14/2017 Discontinuedmagnesium oxide 400 mg oral tablet (2 sources)Start: 11-14-2023 End: 47-22-6539ahkz 400 mg by mouth once dailyMagnesium Oxide Discontinued 400 MG PO Daily November 14, 2023 12:00am February 26, 2024 4:08pmMetoprolol (2 sources)beta-Adrenergic BlockerStart: 11-14-2023 End: 58-96-3691afqu 12.5 mg by mouth twice dailyMetoprolol Tartrate Discontinued 12.5 MG PO Twice daily November 14, 2023 12:00am February 26, 2024 4:09pmStart: 36-81-0052hslp 12.5 mg by mouth twice dailyMetoprolol Tartrate Active 12.5 MG PO Twice daily November 14, 2023 12:00ammicroencapsulated potassium chloride 20 meq extended release oral tablet (17 sources)Start: 04-29-0573gofz 1 tablet by mouth once daily at mealtimeKLOR- CON M20 20 mEq tablet TAKE 1 TABLET BY MOUTH EVERY DAY WITH FOOD FOR 90 DAYS 0 07/18/2022 ActiveStart: 94-71-5761ixot 1 tablet by mouth once dailyPotassium Chloride (Fuy-Lkem-Fsv M20) 20 mEq oral tablet, extended release 20 mEq = 1 tab(s), Oral,Daily, Refills(s) 0 Start Date: 03/01/22 Status: OrderedStart: 04-30-2020 End: 01-04-6583avaa 1 tablet by mouth once dailypotassium chloride SA (K-DUR,KLOR-CON) 20 MEQ tablet Indications: Hypertension, benign Take 1 (one) tablet (20 mEq total) by mouth daily . 90 tablet 1 09/22/2021 03/21/2022 Active Start: 80-57-6819aqhb 1 tablet by mouth once dailypotassium chloride SA (K-DUR,KLOR-CON) 20 MEQ tablet Indications: Hypopotassemia Take 1 (one) tablet (20 mEq total) by mouth daily To supplement potassium . 30 tablet 3 06/07/2018 ActiveStart: 05-03-2016 End: 11-40-9601dkra 1 tablet by mouth once dailypotassium chloride SA (K-DUR,KLOR-CON) 20 MEQ tablet Indications: Hypopotassemia Take 1 (one) tablet (20 mEq total) by mouth daily To supplement potassium. 90 tablet 1 08/14/2017 ActiveComment on above:TAKE 1 TABLET BY MOUTH EVERY DAY WITH FOOD FOR 90 DAYS Potassium Chloride (Klor-Con M20) 20 mEq tablet,ER particles/crystals (2 sources)Start: 11-14-2023 End: 14-37-9450Ybzekusml Chloride (Klor-Con M20) 20 mEq tablet,ER particles/crystals Discontinued 20 MEQ PO Once November 14, 2023 12:00am November 14, 2023 10:36amspironolactone 25 mg oral tablet (3 sources)Aldosterone AntagonistStart: 11-16-2023 End: 27-73-3202gpsf 1 tablet by mouth once dailySpironolactone Discontinued 0 .ROUTE .COMPLEX 90 November 16, 2023 10:51am February 26, 2024 4:08pm TAKE 1 TABLET BY MOUTH EVERY DAY FOR 90 DAYSStart: 11-14-2023 End: 71-76-0224ootj 25 mg by mouth once dailySpironolactone Discontinued 25 MG PO Daily November 14, 2023 12:00am November 16, 2023 10:52am Problems Active Problems Problem ClassificationProblemDateDocumented DateEpisodic/ChronicAcute and unspecified renal failure (4 sources)Acute kidney failure, unspecified; Translations: [Acute renal failure syndrome]Onset: 367890-04-2626HgrsyaesWpwqxs of breast (7 sources)Intraductal carcinoma in situ of left breast; Translations: [Intraductal carcinoma in situ of breast]Onset: 22-33-5881JfaotddNqbcrau dysrhythmias (6 sources)Sinus tachycardia; Translations: [Sinus tachycardia]Onset: 08-12-2015 06-86-0182DmreflsMdmhwyh dysrhythmias (9 sources)Sinus tachycardia; Translations: [Tachycardia, unspecified]Onset: 01-15-2506EdrhwsxnQpnjzoc kidney disease (6 sources)Chronic kidney disease stage 3B ; Translations: [Chronic kidney disease, stage 3b]38-36-9153TfkevzzYgsuhkoypt associated with dizziness or vertigo (1 source)Dizziness and giddiness; Translations: [Dizziness and giddiness]Onset: 54-04-8064EecrvcqeKiaeiuzxcnnjq disorders (11 sources)Intellectual functioning disability ; Translations: [Mental retardation]Onset: 986520-83-4374YpokxmlAbnuwufv mellitus without complication (4 sources)Type 2 diabetes mellitus without complications; Translations: [TYPE 2 DM WITHOUT COMPLICATIONS]Onset: 20-75-2578DfnufkkQevlhhmk mellitus without complication (7 sources)Prediabetes; Translations: [Prediabetes]Onset: 99-97-4932Iximrttf Disorders of lipid metabolism (20 sources)Hyperlipidemia; Translations: [Hyperlipidemia, unspecified]Onset: 987268-69-9041UxrackvMobmxdmtc hypertension (20 sources)Benign hypertension; Translations: [Essential (primary) hypertension]Onset: 181000-43-0585AkniriqPcrib and electrolyte disorders (19 sources)Hypokalemia; Translations: [Hypokalemia]Onset: 10-15-2012 Resolved: 468136-71-8309ClrtsaglWqusmmvjoxpz with complications and secondary hypertension (7 sources)Hypertensive renal disease; Translations: [Hypertensive chronic kidney disease with stage 1 throughstage 4 chronic kidney disease, or unspecified chronic kidney disease]ChronicNonmalignant breast conditions (5 sources)Atypical ductal hyperplasia of breast; Translations: [Unspecified benign mammary dysplasia of left breast]Onset: 17-85-8734LcmgnmarRynebtgjcng deficiencies (7 sources)Vitamin D deficiency; Translations: [Vitamin D deficiency, unspecified]ChronicOsteoporosis (1 source)Age-related osteoporosis without current pathological fracture; Translations: [AGE-REL OSTEOPOR W/OCURR PATH FX]Onset: 27-08-3053MqylmkmYscka and unspecified benign neoplasm (2 sources)Benign tumor of breast; Translations: [Benign neoplasm of left breast]Onset: 92-02-1391KgzgwtgnKvkda and unspecified benign neoplasm (2 sources)Fibroadenoma of tbwroq07-51-6105DnxupycqHagdu and unspecified benign neoplasm (4 sources)Benign neoplasm of left breast; Translations: [BENIGN NEOPLASM OF LEFT BREAST]Onset: 43-99-3195WgejecjxXxurz congenital anomalies (4 sources)Short stature disorder; Translations: [Other specified congenital malformation syndromes, not elsewhere classified]Onset: ChronicOther ear and sense organ disorders (11 sources)Hearing loss; Translations: [Unspecified hearing loss, unspecified ear]Onset: 107140-09-0355TaxdlmlUtjno ear and sense organ disorders (1 source)Bilateral hearing loss; Translations: [Bilateral hearing loss, unspecified hearing loss type]ChronicOther liver diseases (5 sources)Abnormal levels of other serum enzymes; Translations: [ABNORMAL LEVELS OTHER SERUM ENZYMES]Onset: 01-93-9720IsrjmcgoKbsmp nutritional; endocrine; and metabolic disorders (2 sources)Hypomagnesemia; Translations: [Hypomagnesemia]65-05-0694LcptqicZwdga nutritional; endocrine; and metabolic disorders (2 sources)Hypomagnesemia; Translations: [Disorders of magnesium metabolism] 17-49-2251MdirtjxTxzzn nutritional; endocrine; and metabolic disorders (2 sources)Body mass index less than 0025-09-1807BrwrlhtbOycnw nutritional; endocrine; and metabolic disorders (1 source)Underweight; Translations: [UNDERWEIGHT]Onset: 62-44-4413NyelvmaiEjnjm nutritional; endocrine; and metabolic disorders (1 source)Body mass index (BMI) 19.9 or less, adult; Translations: [BODY MASS INDEX 19.9 OR LESS ADULT]Onset: 72-74-0896QfirmiwlYluck screening for suspected conditions (not mental disorders or infectious disease) (20 sources)Patient encounter status; Translations: [Encounter for other screening for malignant neoplasm of breast]Onset: 71-13-1777BlabotmdMzubzzo (1 source)Syncope and collapse; Translations: [Syncope and collapse]Onset: 28-13-2113CiculijzGoclmgp disorders (20 sources)Hypothyroidism; Translations: [Acquired hypothyroidism]Onset: 684942-41-2199ToazrqxHfqzuqctldpf (10 sources)Patient encounter status; Translations: [Routine general medical examination at a health care facility]Onset: 06-15-2011 Resolved: 691850-24-8302Gqbxxszdrcos (3 sources)Intellectual disability; Translations: [Intellectual disability] Onset: 746416-30-4172Lnkzxhtsmpcj (1 source)CONTACT W/AND (SUSP) EXPOS COVID-19; Translations: [CONTACT W/AND (SUSP) EXPOS COVID-19]Onset: 06-75-3770Ucthgjwwyxfh (1 source)Medical ScreeningOnset: 69-31-7167Zldoebddnmug (1 source)EMSOnset: 01-20-2024 Past or Other Problems Problem ClassificationProblemDateDocumented DateEpisodic/ChronicChronic kidney disease (1 source)Chronic kidney diseaseGenitourinary symptoms and ill-defined conditions (2 sources)Disorder of the urinary system; Translations: [Disorder of kidney and ureter]Onset: 068644-27-3744XznlzojsLysramqhouper and screening for infectious disease (1 source)Encounter for screening for human papillomavirus (HPV); Translations: [ENC SCREENING HUMAN PAPILLOMAVIRUS]Onset: 28-14-2243VchjtnbgPcuec diseases of kidney and ureters (8 sources)Disorder of kidney and/or ureter; Translations: [Disorder of kidney and ureter, unspecified]Onset: 2012 Resolved: 506907-01-5895NbgrvcqjNyvjf nutritional; endocrine; and metabolic disorders (16 sources)Underweight; Translations: [Short stature disorder]Onset: 04-27-2014 30-88-8211DcyxbmqaOvroy nutritional; endocrine; and metabolic disorders (3 sources)Short stature disorder; Translations: [Short stature associated with congenital syndrome]Onset: 007840-07-5430YxypngqlMeplm nutritional; endocrine; and metabolic disorders (1 source)Unexplained weight loss ; Translations: [Unexplained weight loss] EpisodicResidual codes; unclassified (1 source)FH: Diabetes mellitus; Translations: [Family history of diabetes mellitus]EpisodicResidual codes; unclassified (1 source)Asymptomatic menopausal state; Translations: [ASYMPTOMATIC MENOPAUSAL STATE]Onset: 30-15-0101Mchfbphq Results Test NameValueInterpretationReference RangeFacilityBasic Metab w/rfx MGon 39-66-0175Dzhxr gap [Moles/Vol]9 mmol/LNormal9-16[facility] HospitalComment on above:Performed By: #### CRP, PE, C4, GLYHGB, CDP, IMMS, MARCELA, C3, CK, ANAX, URI, ANCACP, VD25, CP #### [address] [id number] Youth Development Professional: ARNOLDO Mccainalcium [Mass/Vol]8.3 mg/dLLow8.6-10.4[facility] HospitalComment on above:Performed By: #### CRP, PE, C4, GLYHGB, CDP, IMMS, MARCELA, C3, CK, ANAX, URI, ANCACP, VD25, CP #### [address] [id number] Youth Development Professional: ARNOLDO Mccainhloride [Moles/Vol]110 mmol/IUlnv04-527XatzrBethesda North HospitalComment on above:Performed By: #### CRP, PE, C4, GLYHGB, CDP, IMMS, MARCELA, C3, CK, ANAX, URI, ANCACP, VD25, CP #### [place] [id number] Youth Development Professional: ARNOLDO MccainO2 [Moles/Vol]21 mmol/BCzrvdd23-35VxtzgBethesda North HospitalComment on above:Performed By: #### CRP, PE, C4, GLYHGB, CDP, IMMS, MARCELA, C3, CK, ANAX, URI, ANCACP, VD25, CP #### [address] [id number] Youth Development Professional: ARNOLDO Mccainreatinine [Mass/Vol]1.4 mg/dLHigh0.50-0.90[facility] HospitalComment on above:Performed By: #### CRP, PE, C4, GLYHGB, CDP, IMMS, MARCELA, C3, CK, ANAX, URI, ANCACP, VD25, CP #### [address] [phone] Youth Development Professional: Lawrence Madoff, MDGFR/1.73 sq M.predicted among non-blacks MDRD (S/P/Bld) [Vol rate/Area]44 mL/min/{1.73_m2}Low>60[facility] HospitalComment on above:Result Comment: These results are not [...] CK, ANAX, URI, ANCACP, VD25, CP #### [place] [id number] Youth Development Professional: Lawrence Goff MDGlucose [Mass/Vol]145 mg/wHBewk42-12ZtovoOroville HospitalComment on above:Performed By: #### CRP, PE, C4, GLYHGB, CDP, IMMS, MARCELA, C3, CK, ANAX, URI, ANCACP, VD25, CP #### [facility] [email or web address] [address] [place], [place] [id number] Youth Development Professional: MICHEL Mccainotassium [Moles/Vol]4.6 mmol/LNormal3.7-5.3 [facility] HospitalComment on above:Result Comment: SPECIMEN SLIGHTLY HEMOLYZED, RESULTS MAY BE ADVERSELY AFFECTED.Performed By: #### CRP, PE, C4, GLYHGB, CDP, IMMS, MARCELA, C3, CK, ANAX, URI, ANCACP, VD25, CP #### [place] [id number] Youth Development Professional: SARA Mccainodium [Moles/Vol]140 mmol/RYcxtty760-679HbaelBethesda North HospitalComment on above:Performed By: #### CRP, PE, C4, GLYHGB, CDP, IMMS, MARCELA, C3, CK, ANAX, URI, ANCACP, VD25, CP #### [address] [id number] Youth Development Professional: Lawrence Goff MDUrea nitrogen [Mass/Vol]26 mg/dLHigh6-20[facility] HospitalComment on above:Performed By: #### CRP, PE, C4, GLYHGB, CDP, IMMS, MARCELA, C3, CK, ANAX, URI, ANCACP, VD25, CP #### [address] [phone] Youth Development Professional: Adelia Mccain Metab w/rfx MGon 39-88-5276Dnorl gap [Moles/Vol]7 mmol/LLow9-16[facility] HospitalComment on above: Performed By: #### CRP, PE, C4, GLYHGB, CDP, IMMS, MARCELA, C3, CK, ANAX, URI, ANCACP, VD25, CP #### [address] [id number] Youth Development Professional: ARNOLDO Mccainalcium [Mass/Vol]7.8 mg/dLLow8.6-10.4[facility] HospitalComment on above:Performed By: #### CRP, PE, C4, GLYHGB, CDP, IMMS, MARCELA, C3, CK, ANAX, URI, ANCACP, VD25, CP #### [address] [phone] Youth Development Professional: ARNOLDO Mccainhloride [Moles/Vol]113 mmol/HFyqs70-616MbjoxBethesda North HospitalComment on above:Performed By: #### CRP, PE, C4, GLYHGB, CDP, IMMS, MARCELA, C3, CK, ANAX, URI, ANCACP, VD25, CP #### [address] [phone] Youth Development Professional: ARNOLDO MccainO2 [Moles/Vol]25 mmol/KRpbzsq89-87ErclfBethesda North HospitalComment on above:Performed By: #### CRP, PE, C4, GLYHGB, CDP, IMMS, MARCELA, C3, CK, ANAX, URI, ANCACP, VD25, CP #### [address] [id number] Youth Development Professional: ARNOLDO Mccainreatinine [Mass/Vol]1.8 mg/dLHigh0.50-0.90[facility] HospitalComment on above:Performed By: #### CRP, PE, C4, GLYHGB, CDP, IMMS, MARCELA, C3, CK, ANAX, URI, ANCACP, VD25, CP #### [address] [id number] Youth Development Professional: Lawrence Goff MDGFR/1.73 sq M.predicted among non-blacks MDRD (S/P/Bld) [Vol rate/Area]34 mL/min/{1.73_m2}Low>60[facility] HospitalComment on above:Result Comment: These results are not [...] CK, ANAX, URI, ANCACP, VD25, CP #### [place] [id number] Youth Development Professional: Lawrence Goff MDGlucose [Mass/Vol]146 mg/mZTuvt50-38VoenoOroville HospitalComment on above:Performed By: #### CRP, PE, C4, GLYHGB, CDP, IMMS, MARCELA, C3, CK, ANAX, URI, ANCACP, VD25, CP #### [address] [phone] Youth Development Professional: MICHEL Mccainotassium [Moles/Vol]5.3 mmol/LNormal3.7-5.3 [facility] HospitalComment on above:Performed By: #### CRP, PE, C4, GLYHGB, CDP, IMMS, MARCELA, C3, CK, ANAX, URI, ANCACP, VD25, CP #### [address] [phone] Youth Development Professional: SARA Mccainodium [Moles/Vol]145 mmol/NJtkdtz220-189CapllBethesda North HospitalComment on above:Performed By: #### CRP, PE, C4, GLYHGB, CDP, IMMS, MARCELA, C3, CK, ANAX, URI, ANCACP, VD25, CP #### [place] [address] Youth Development Professional: Lawrence Goff MDUrea nitrogen [Mass/Vol]36 mg/dLHigh6-20[facility] HospitalComment on above:Performed By: #### CRP, PE, C4, GLYHGB, CDP, IMMS, MARCELA, C3, CK, ANAX, URI, ANCACP, VD25, CP #### [place] [address] Youth Development Professional: Lawrence Goff MDAnion gap [Moles/Vol]8 mmol/LLow9-16[facility] HospitalComment on above:Performed By: #### CRP, PE, C4, GLYHGB, CDP, IMMS, MARCELA, C3, CK, ANAX, URI, ANCACP, VD25, CP #### [address] [phone] Youth Development Professional: ARNOLDO Mccainalcium [Mass/Vol]7.8 mg/dLLow8.6-10.4[facility] HospitalComment on above:Performed By: #### CRP, PE, C4, GLYHGB, CDP, IMMS, MARCELA, C3, CK, ANAX, URI, ANCACP, VD25, CP #### [facility] [email or web address] [address] [place] [id number] Youth Development Professional: ARNOLDO Mccainhloride [Moles/Vol]112 mmol/RUbum20-977VdbpjBethesda North HospitalComment on above:Performed By: #### CRP, PE, C4, GLYHGB, CDP, IMMS, MARCELA, C3, CK, ANAX, URI, ANCACP, VD25, CP #### [place] [phone] Youth Development Professional: Lawrence Goff MDCO2 [Moles/Vol]25 mmol/VPnrspf28-15QozblBethesda North HospitalComment on above:Performed By: #### CRP, PE, C4, GLYHGB, CDP, IMMS, MARCELA, C3, CK, ANAX, URI, ANCACP, VD25, CP #### [place] [phone] Youth Development Professional: ARNOLDO Mccainreatinine [Mass/Vol]1.8 mg/dLHigh0.50-0.90[facility] HospitalComment on above:Performed By: #### CRP, PE, C4, GLYHGB, CDP, IMMS, MARCELA, C3, CK, ANAX, URI, ANCACP, VD25, CP #### [address] [phone] Youth Development Professional: Lawrence Goff MDGFR/1.73 sq M.predicted among non-blacks MDRD (S/P/Bld) [Vol rate/Area]35 mL/min/{1.73_m2}Low>60[facility] HospitalComment on above:Result Comment: These results are not [...] CK, ANAX, URI, ANCACP, VD25, CP #### [place] [address] Youth Development Professional: Lawrence Goff MDGlucose [Mass/Vol]96 mg/lQXywfab27-78TqzxnOroville HospitalComment on above:Performed By: #### CRP, PE, C4, GLYHGB, CDP, IMMS, MARCELA, C3, CK, ANAX, URI, ANCACP, VD25, CP #### [place] [address] Youth Development Professional: MICHEL Mccainotassium [Moles/Vol]4.9 mmol/LNormal3.7-5.3 [facility] HospitalComment on above:Performed By: #### CRP, PE, C4, GLYHGB, CDP, IMMS, MARCELA, C3, CK, ANAX, URI, ANCACP, VD25, CP #### [place] [address] Youth Development Professional: SARA Mccainodium [Moles/Vol]145 mmol/MVgyyol586-085QyrivBethesda North HospitalComment on above:Performed By: #### CRP, PE, C4, GLYHGB, CDP, IMMS, MARCELA, C3, CK, ANAX, URI, ANCACP, VD25, CP #### [place] [address] Youth Development Professional: Lawrence Goff MDUrea nitrogen [Mass/Vol]38 mg/dLHigh6-20[facility] HospitalComment on above:Performed By: #### CRP, PE, C4, GLYHGB, CDP, IMMS, MARCELA, C3, CK, ANAX, URI, ANCACP, VD25, CP #### [employer] [address] [place] [address] Youth Development Professional: MDProt. Adán Electroph, Blon 29-64-7722Jhzisdnczhm Review:ELECTRONICALLY SIGNED. BRANDY MOSS M.D.[facility] Health CenterComment on above:Performed By: #### CRP, PE, C4, GLYHGB, CDP, IMMS, MARCELA, C3, CK, ANAX, URI, ANCACP, VD25, CP #### [employer] [address] [place] [address] Youth Development Professional: MDProt. Adán Elect-InterpNORMAL ELECTROPHORETIC PATTERN [facility] CenterComment on above:Performed By: #### CRP, PE, C4, GLYHGB, CDP, IMMS, MARCELA, C3, CK, ANAX, URI, ANCACP, VD25, CP #### [email or web address] [address] [place], [place] [id number] Youth Development Professional: Lawrence Goff MDANA Screen w/reflexon 03-22-3519XLM Screen NegativeNormalNEGBethesda North HospitalComment on above:Performed By: #### CRP, PE, C4, GLYHGB, CDP, IMMS, MARCELA, C3, CK, ANAX, URI, ANCACP, VD25, CP #### [employer] [address] [place] [address] [phone] Youth Development Professional: Rex Mccaini-dsDNA<0.5Normal<10.0[facility] North HospitalComment on above:Result Comment: Reference Range: <10.0 Negative 10.0-15.0 Equivocal >15.0 PositivePerformed By: #### CRP, PE, C4, GLYHGB, CDP, IMMS, MARCELA, C3, CK, ANAX, URI, ANCACP, VD25, CP #### [employer] [address] [place] [address] Youth Development Professional: ANIL Mccain Screen0.4 U/mLNormal<0.7[facility] North HospitalComment on above:Result Comment: Reference Range: <0.7 Negative 0.7-1.0 Equivocal >1.0 Positive TEREZA Screen includes U1RNP,RNP70,Sm,Ro(SS-A),La(SS-B),CENP,Scl-70,Orin-1Performed By: #### CRP, PE, C4, GLYHGB, CDP, IMMS, MARCELA, C3, CK, ANAX, URI, ANCACP, VD25, CP #### [employer] [address] [place], [place] [phone] Youth Development Professional: Adelia Mccain Metab w/rfx MGon 37-96-0641Rmqgy gap [Moles/Vol]12 mmol/LNormal9-16[facility] HospitalComment on above: Performed By: #### CRP, PE, C4, GLYHGB, CDP, IMMS, MARCELA, C3, CK, ANAX, URI, ANCACP, VD25, CP #### [employer] [address] [place], [place] [phone] Youth Development Professional: ARNOLDO Mccainalcium [Mass/Vol]8.4 mg/dLLow8.6-10.4[facility] North HospitalComment on above:Performed By: #### CRP, PE, C4, GLYHGB, CDP, IMMS, MARCELA, C3, CK, ANAX, URI, ANCACP, VD25, CP #### [employer] [address] [place], [place] [phone] Youth Development Professional: ARNOLDO Mccainhloride [Moles/Vol]101 mmol/ZTlfupd70-699JhjdoBethesda North HospitalComment on above:Performed By: #### CRP, PE, C4, GLYHGB, CDP, IMMS, MARCELA, C3, CK, ANAX, URI, ANCACP, VD25, CP #### [employer] [address] [place] [phone] Youth Development Professional: ARNOLDO MccainO2 [Moles/Vol]32 mmol/HEcsa52-03LmdbnBethesda North HospitalComment on above:Performed By: #### CRP, PE, C4, GLYHGB, CDP, IMMS, MARCELA, C3, CK, ANAX, URI, ANCACP, VD25, CP #### [place] [phone] Youth Development Professional: ARNOLDO Mccainreatinine [Mass/Vol]2.4 mg/dLHigh0.50-0.90[facility] HospitalComment on above:Performed By: #### CRP, PE, C4, GLYHGB, CDP, IMMS, MARCELA, C3, CK, ANAX, URI, ANCACP, VD25, CP #### [place] [phone] Youth Development Professional: Lawrence Goff MDGFR/1.73 sq M.predicted among non-blacks MDRD (S/P/Bld) [Vol rate/Area]24 mL/min/{1.73_m2}Low>60[facility] HospitalComment on above:Result Comment: These results are not [...] ANAX, URI, ANCACP, VD25, CP #### [facility] [email or web address] [address] [place] [phone] Youth Development Professional: Lawrence Goff MDGlucose [Mass/Vol]140 mg/sZRdak60-38VdoysOroville HospitalComment on above:Performed By: #### CRP, PE, C4, GLYHGB, CDP, IMMS, MARCELA, C3, CK, ANAX, URI, ANCACP, VD25, CP #### [place] [address] Youth Development Professional: MICHEL Mccainotassium [Moles/Vol]4.5 mmol/LNormal3.7-5.3 [facility] HospitalComment on above:Performed By: #### CRP, PE, C4, GLYHGB, CDP, IMMS, MARCELA, C3, CK, ANAX, URI, ANCACP, VD25, CP #### [place] [phone] Youth Development Professional: SARA Mccainodium [Moles/Vol]145 mmol/TSaweag754-554FqqwtBethesda North HospitalComment on above:Performed By: #### CRP, PE, C4, GLYHGB, CDP, IMMS, MARCELA, C3, CK, ANAX, URI, ANCACP, VD25, CP #### [place] [address] Youth Development Professional: Lawrence Goff MDUrea nitrogen [Mass/Vol]61 mg/dLHigh6-20[facility] HospitalComment on above:Performed By: #### CRP, PE, C4, GLYHGB, CDP, IMMS, MARCELA, C3, CK, ANAX, URI, ANCACP, VD25, CP #### [place] [address] Youth Development Professional: Lawrence Goff MDAnion gap [Moles/Vol]12 mmol/LNormal9-16[facility] HospitalComment on above:Performed By: #### CRP, PE, C4, GLYHGB, CDP, IMMS, MARCELA, C3, CK, ANAX, URI, ANCACP, VD25, CP #### [address] [phone] Youth Development Professional: Lawrence Madoff, MDCalcium [Mass/Vol]8.7 mg/dLNormal8.6-10.4[facility] North HospitalComment on above:Performed By: #### CRP, PE, C4, GLYHGB, CDP, IMMS, MARCELA, C3, CK, ANAX, URI, ANCACP, VD25, CP #### [place] [phone] Youth Development Professional: ARNOLDO Mccainhloride [Moles/Vol]100 mmol/BAbagyp60-229CfoxpBethesda North HospitalComment on above:Performed By: #### CRP, PE, C4, GLYHGB, CDP, IMMS, MARCELA, C3, CK, ANAX, URI, ANCACP, VD25, CP #### [place] [phone] Youth Development Professional: ARNOLDO MccainO2 [Moles/Vol]32 mmol/QYbhv92-94KrosoBethesda North HospitalComment on above:Performed By: #### CRP, PE, C4, GLYHGB, CDP, IMMS, MARCELA, C3, CK, ANAX, URI, ANCACP, VD25, CP #### [place] [phone] Youth Development Professional: ARNOLDO Mccainreatinine [Mass/Vol]2.6 mg/dLHigh0.50-0.90[facility] North HospitalComment on above:Performed By: #### CRP, PE, C4, GLYHGB, CDP, IMMS, MARCELA, C3, CK, ANAX, URI, ANCACP, VD25, CP #### [place] [phone] Youth Development Professional: Lawrence Goff MDGFR/1.73 sq M.predicted among non-blacks MDRD (S/P/Bld) [Vol rate/Area]22 mL/min/{1.73_m2}Low>60[facility] HospitalComment on above:Result Comment: These results are not [...] CK, ANAX, URI, ANCACP, VD25, CP #### [place] [address] Youth Development Professional: Lawrence Goff MDGlucose [Mass/Vol]178 mg/xJWlzn98-05GqcccOroville HospitalComment on above:Performed By: #### CRP, PE, C4, GLYHGB, CDP, IMMS, MARCELA, C3, CK, ANAX, URI, ANCACP, VD25, CP #### [place] [address] Youth Development Professional: MICHEL Mccainotassium [Moles/Vol]3.6 mmol/LLow3.7-5.3MOroville HospitalComment on above:Performed By: #### CRP, PE, C4, GLYHGB, CDP, IMMS, MARCELA, C3, CK, ANAX, URI, ANCACP, VD25, CP #### [place] [address] Youth Development Professional: SARA Mccainodium [Moles/Vol]144 mmol/HWtldyc433-019RbghqBethesda North HospitalComment on above:Performed By: #### CRP, PE, C4, GLYHGB, CDP, IMMS, MARCELA, C3, CK, ANAX, URI, ANCACP, VD25, CP #### [address] [phone] Youth Development Professional: Lawrence Goff MDUrea nitrogen [Mass/Vol]65 mg/dLHigh6-20[facility] HospitalComment on above:Performed By: #### CRP, PE, C4, GLYHGB, CDP, IMMS, MARCELA, C3, CK, ANAX, URI, ANCACP, VD25, CP #### [address] [phone] Youth Development Professional: Liliya Mccain gap [Moles/Vol]16 mmol/LNormal9-16[facility] HospitalComment on above:Performed By: #### CRP, PE, C4, GLYHGB, CDP, IMMS, MARCELA, C3, CK, ANAX, URI, ANCACP, VD25, CP #### [place] [address] Youth Development Professional: ARNOLDO Mccanialcium [Mass/Vol]9.7 mg/dLNormal8.6-10.4[facility] HospitalComment on above:Performed By: #### CRP, PE, C4, GLYHGB, CDP, IMMS, MARCELA, C3, CK, ANAX, URI, ANCACP, VD25, CP #### [address] [phone] Youth Development Professional: ARNOLDO Mccainhloride [Moles/Vol]104 mmol/VTeqyuo75-341TzwujBethesda North HospitalComment on above:Performed By: #### CRP, PE, C4, GLYHGB, CDP, IMMS, MARCELA, C3, CK, ANAX, URI, ANCACP, VD25, CP #### [address] [phone] Youth Development Professional: ARNOLDO MccainO2 [Moles/Vol]22 mmol/PTiwopu04-97KxneqBethesda North HospitalComment on above:Performed By: #### CRP, PE, C4, GLYHGB, CDP, IMMS, MARCELA, C3, CK, ANAX, URI, ANCACP, VD25, CP #### [address] 2018508 Youth Development Professional: ARNOLDO Mccainreatinine [Mass/Vol]2.4 mg/dLHigh0.50-0.90[facility] HospitalComment on above:Performed By: #### CRP, PE, C4, GLYHGB, CDP, IMMS, MARCELA, C3, CK, ANAX, URI, ANCACP, VD25, CP #### [address] [phone] Youth Development Professional: Lawrence Goff MDGFR/1.73 sq M.predicted among non-blacks MDRD (S/P/Bld) [Vol rate/Area]24 mL/min/{1.73_m2}Low>60[facility] HospitalComment on above:Result Comment: These results are not [...] CK, ANAX, URI, ANCACP, VD25, CP #### [address] [phone] Youth Development Professional: Lawrence Goff MDGlucose [Mass/Vol]107 mg/fMKlyb97-71KudkeOroville HospitalComment on above:Performed By: #### CRP, PE, C4, GLYHGB, CDP, IMMS, MARCELA, C3, CK, ANAX, URI, ANCACP, VD25, CP #### [address] [phone] Youth Development Professional: MICHEL Mccainotassium [Moles/Vol]4.2 mmol/LNormal3.7-5.3 [facility] HospitalComment on above:Performed By: #### CRP, PE, C4, GLYHGB, CDP, IMMS, MARCELA, C3, CK, ANAX, URI, ANCACP, VD25, CP #### [address] [phone] Youth Development Professional: SARA Mccainodium [Moles/Vol]142 mmol/LGrcdeo268-997TfioxBethesda North HospitalComment on above:Performed By: #### CRP, PE, C4, GLYHGB, CDP, IMMS, MARCELA, C3, CK, ANAX, URI, ANCACP, VD25, CP #### [address] [phone] Youth Development Professional: Lawrence Goff MDUrea nitrogen [Mass/Vol]68 mg/dLRichwood Area Community Hospital6-20[facility] HospitalComment on above:Performed By: #### CRP, PE, C4, GLYHGB, CDP, IMMS, MARCELA, C3, CK, ANAX, URI, ANCACP, VD25, CP #### [address] [phone] Youth Development Professional: Lawrence Goff MDEosinophils, Urineon 29-84-9393Mydccekxxlx, UrineNone SeenNoBellevue HospitalComment on above: Performed By: #### CRP, PE, C4, GLYHGB, CDP, IMMS, MARCELA, C3, CK, ANAX, URI, ANCACP, VD25, CP #### [address] [phone] Youth Development Professional: Lawrence Goff MDHemoglobin A1Con 84-97-6208Dawpyia [Mass/Vol]137 mg/dLSouthwest General Health CenterComment on above:Result Comment: The ADA and AACC recommend providing the estimated average glucose result to permit better patient understanding of their HBA1c result.Performed By: #### CRP, PE, C4, GLYHGB, CDP, IMMS, MARCELA, C3, CK, ANAX, URI, ANCACP, VD25, CP #### [address] [phone] Youth Development Professional: Lawrence Goff MDHbA1c (Bld) [Mass fraction]6.4 %High4.0-6.0[facility] HospitalComment on above:Performed By: #### CRP, PE, C4, GLYHGB, CDP, IMMS, MARCELA, C3, CK, ANAX, URI, ANCACP, VD25, CP #### [address] [phone] Youth Development Professional: Lawrence Goff MDLipid Profileon 96-58-1334Qbysblagkon [Mass/Vol] 163 mg/dLNormal0-199[facility] HospitalComment on above:Result Comment: Cholesterol Guidelines: <200 Desirable 200-240 Borderline >240 UndesirablePerformed By: #### CRP, PE, C4, GLYHGB, CDP, IMMS, MARCELA, C3, CK, ANAX, URI, ANCACP, VD25, CP #### [address] [address] Youth Development Professional: ARNOLDO Mccainholesterol in HDL [Mass/Vol]47 mg/dLNormal>40 [facility] HospitalComment on above:Result Comment: HDL Guidelines: <40 Undesirable 40-59 Borderline >59 DesirablePerformed By: #### CRP, PE, C4, GLYHGB, CDP, IMMS, MARCELA, C3, CK, ANAX, URI, ANCACP, VD25, CP #### [address] [phone] Youth Development Professional: ARNOLDO Mccainholesterol in LDL [Mass/Vol]102 mg/dLHigh0-100 [facility] HospitalComment on above:Result Comment: LDL Guidelines: <100 Desirable 100-129 Near to/above Desirable 130-159 Borderline >159 Undesirable Direct (measured) LDL and calculated LDL are not interchangeable tests.Performed By: #### CRP, PE, C4, GLYHGB, CDP, IMMS, MRACELA, C3, CK, ANAX, URI, ANCACP, VD25, CP #### [address] [phone] Youth Development Professional: ARNOLDO Mccainholesterol in VLDL [Mass/Vol]14 mg/dLNormal [facility] HospitalComment on above:Performed By: #### CRP, PE, C4, GLYHGB, CDP, IMMS, MARCELA, C3, CK, ANAX, URI, ANCACP, VD25, CP #### [address] [phone] Youth Development Professional: ARNOLDO Mccainholestaxel.total/Cholesterol in HDL [Mass ratio]3.0 {ratio}NormalBethesda North HospitalComment on above: Performed By: #### CRP, PE, C4, GLYHGB, CDP, IMMS, MARCELA, C3, CK, ANAX, URI, ANCACP, VD25, CP #### [address] [phone] Youth Development Professional: Lawrence Goff MDTriglyceride [Mass/Vol]71 mg/dLNormal<150[facility] HospitalComment on above:Result Comment: Triglyceride Guidelines: <150 Desirable 150-199 Borderline 200-499 High >499 Very high Based on AHA Guidelines for fasting triglyceride, February 2012.Performed By: #### CRP, PE, C4, GLYHGB, CDP, IMMS, MARCELA, C3, CK, ANAX, URI, ANCACP, VD25, CP #### [address] [phone] Youth Development Professional: Lawrence Goff MDNeutrophil Cytopl Abon 90-60-0030SXG-ANCA0.4 AU/mLNormal0.0-3.5[facility] HospitalComment on above:Result Comment: Reference Range: <3.5 Negative 3.5-5.0 Equivocal >5.0 PositivePerformed By: #### CRP, PE, C4, GLYHGB, CDP, IMMS, MARCELA, C3, CK, ANAX, URI, ANCACP, VD25, CP #### [address] [address] Youth Development Professional: MARIO Mccain-ANCA0.8 AU/mLNormal0.0-2.0[facility] HospitalComment on above:Result Comment: Reference Range: <2.0 Negative 2.0-3.0 Equivocal >3.0 PositivePerformed By: #### CRP, PE, C4, GLYHGB, CDP, IMMS, MARCELA, C3, CK, ANAX, URI, ANCACP, VD25, CP #### [place] [address] Youth Development Professional: Dev Mccain. Electroph, Blon 80-24-2070Xjnrcrb [Mass/Vol]4.2 g/dLNormal3.2-5.2MOroville HospitalComment on above: Performed By: #### CRP, PE, C4, GLYHGB, CDP, IMMS, MARCELA, C3, CK, ANAX, URI, ANCACP, VD25, CP #### [place] [address] Youth Development Professional: Lawrence Goff MDAlbumin, %60 %Fsnfbg97-05MinulBethesda North HospitalComment on above:Performed By: #### CRP, PE, C4, GLYHGB, CDP, IMMS, MARCELA, C3, CK, ANAX, URI, ANCACP, VD25, CP #### [place] [phone] Youth Development Professional: Lawrence Goff MDAQDEpsqi-7-mowlhfubt9.3 g/dLNormal0.1-0.4[facility] HospitalComment on above:Performed By: #### CRP, PE, C4, GLYHGB, CDP, IMMS, MARCELA, C3, CK, ANAX, URI, ANCACP, VD25, CP #### [address], [place] [phone] Youth Development Professional: Lawrence Goff MDAlpha-1-globulins,%5 %Normal3-6[facility] HospitalComment on above:Performed By: #### CRP, PE, C4, GLYHGB, CDP, IMMS, MARCELA, C3, CK, ANAX, URI, ANCACP, VD25, CP #### [address] [phone] Youth Development Professional: Lawrence Goff MDADSUhild-5-cswclmguu3.7 g/dLNormal0.5-0.9[facility] HospitalComment on above:Performed By: #### CRP, PE, C4, GLYHGB, CDP, IMMS, MARCELA, C3, CK, ANAX, URI, ANCACP, VD25, CP #### [address] [phone] Youth Development Professional: Lawrence Goff MDAlpha-2-globulins,%10 %Normal6-13[facility] Hospitalcy [facility] Memorial HospitalComment on above:Performed By: #### CRP, PE, C4, GLYHGB, CDP, IMMS, MARCELA, C3, CK, ANAX, URI, ANCACP, VD25, CP #### [address] [phone] Youth Development Professional: Lawrence Goff MDBeta-globulins0.9 g/dLNormal0.5-1.1[facility] HospitalComment on above:Performed By: #### CRP, PE, C4, GLYHGB, CDP, IMMS, MARCELA, C3, CK, ANAX, URI, ANCACP, VD25, CP #### [address] [phone] Youth Development Professional: Lawrence Goff MDBeta-globulins,%12 %Ayndnr20-24Miydu [facility] HospitalComment on above:Performed By: #### CRP, PE, C4, GLYHGB, CDP, IMMS, MARCELA, C3, CK, ANAX, URI, ANCACP, VD25, CP #### [address] [address] Youth Development Professional: Delia MccainmmaHumairaglobulins0.9 g/dLNormal0.5-1.5[facility] HospitalComment on above:Performed By: #### CRP, PE, C4, GLYHGB, CDP, IMMS, MARCELA, C3, CK, ANAX, URI, ANCACP, VD25, CP #### [address] [phone] Youth Development Professional: Delia MccainmmaHumairaglobulins,%13 %Normal9-20[facility] HospitalComment on above:Performed By: #### CRP, PE, C4, GLYHGB, CDP, IMMS, MARCELA, C3, CK, ANAX, URI, ANCACP, VD25, CP #### [address] [address] Youth Development Professional: Martha Mccain Prot. Sum7.0 g/dLNormal6.3-8.2MOroville HospitalComment on above:Performed By: #### CRP, PE, C4, GLYHGB, CDP, IMMS, MARCELA, C3, CK, ANAX, URI, ANCACP, VD25, CP #### [address] [address] Youth Development Professional: Martha Mccain Prot. Sum,%100 %Hzkcfy70-346KdimfBethesda North HospitalComment on above:Performed By: #### CRP, PE, C4, GLYHGB, CDP, IMMS, MARCELA, C3, CK, ANAX, URI, ANCACP, VD25, CP #### [address] [address] Youth Development Professional: Lawrence Goff MDProtein [Mass/Vol]6.9 g/dLNormal6.6-8.7[facility] HospitalComment on above:Performed By: #### CRP, PE, C4, GLYHGB, CDP, IMMS, MARCELA, C3, CK, ANAX, URI, ANCACP, VD25, CP #### [address] [phone] Youth Development Professional: MICHEL Mccainrotein,Tot,[place] Uron 54-42-1113Ojmtecnosu [Mass/Vol]55.8 mg/eIDqhimp29.0-217.0[facility] HospitalComment on above:Performed By: #### CRP, PE, C4, GLYHGB, CDP, IMMS, MARCELA, C3, CK, ANAX, URI, ANCACP, VD25, CP #### [place] [phone] Youth Development Professional: Hayden Mccain Prot. Conc.8 mg/dLNormalBethesda North HospitalComment on above:Result Comment: No normal range established. Performed By: #### CRP, PE, C4, GLYHGB, CDP, IMMS, MARCELA, C3, CK, ANAX, URI, ANCACP, VD25, CP #### [place] [phone] Youth Development Professional: Lawrence Goff MDTP/Cre Ratio0.14NormalBethesda North HospitalComment on above:Performed By: #### CRP, PE, C4, GLYHGB, CDP, IMMS, MARCELA, C3, CK, ANAX, URI, ANCACP, VD25, CP #### [place] [address] Youth Development Professional: CAIT Mccain w/reflex to FT4on 41-53-1905Cozwvan Stim. Horm.2.03 uIU/mLNormal0.27-4.20[facility] HospitalComment on above: Performed By: #### CRP, PE, C4, GLYHGB, CDP, IMMS, MARCELA, C3, CK, ANAX, URI, ANCACP, VD25, CP #### [address] [address] Youth Development Professional: ZAKIYA Mccain RETROPERITONEAL LIMITEDon 01-32-8406AW RETROPERITONEAL LIMITEDEXAMINATION: ULTRASOUND OF THE KIDNEYS 01/20/2024 [...] Signed by: Nancy Medina MD 01/21/24 Final resultNormalBethesda North HospitalC-Reactive Proteinon 78-59-5470LTW [Mass/Vol]mg/LNormal0.0-5.0[facility] North HospitalComment on above:Performed By: #### CRP, PE, C4, GLYHGB, CDP, IMMS, MARCELA, C3, CK, ANAX, URI, ANCACP, VD25, CP #### [address] [phone] Youth Development Professional: Lawrence Goff [facility]3on 40-20-4577P9860 mg/jYUhfjsz49-117UvqeeBethesda North HospitalComment on above:Performed By: #### CRP, PE, C4, GLYHGB, CDP, IMMS, MARCELA, C3, CK, ANAX, URI, ANCACP, VD25, CP #### [address] [phone] Youth Development Professional: Lawrence Goff [facility] [place]4on 28-91-6110C246 mg/aUEzjmos86-10MzisgBethesda North HospitalComment on above:Performed By: #### CRP, PE, C4, GLYHGB, CDP, IMMS, MARCELA, C3, CK, ANAX, URI, ANCACP, VD25, CP #### [employer] [address] [place] [address] Youth Development Professional: Lawrence Goff, MDCBC AND AUTO DIFFon 31-16-7370DNKAFGDA BASOPHIL 0.0 X10E9/LNormal0.0-0.2Pro[facility] Sierra Kings HospitalComment on above:Performed By: #### CBCStormy, 97387-8, CMP, 99971-9, 51351-8 #### [facility] ([id number]) [address] [place] [address] 32864THHRHOAS NEUTROPHIL9.5 X10E9/LHigh1.5-6.6[facility] City HospitalComment on above:Performed By: #### CBCStormy, 10810-0, CMP, , 64017-2 #### [facility] ([id number]) [address] [place] [address] 31619Csvahtcga/100 WBC (Bld)0.2 %[facility] Comment on above:Performed By: #### CBCStormy, 96950-5, CMP, , 49367-3 #### [facility] ([id number]) [address] [place] [address] [id number] (Bld) [#/Vol]0.0 10*3/uLNormal0.0-0.4[facility] City HospitalComment on above:Performed By: #### CBCA, 56410-1, CMP, , 36345-4 #### [facility] ([id number]) [address] [place] [address] 94795Ohnybnspnpl/100 WBC (Bld)0.2 %[facility] Comment on above:Performed By: #### CBCA, 56196-8, CMP, 26897-6, 91273-1 #### [facility] ([id number]) [address] [place] [address] 20619Hbzzlulcrfj distribution width (RBC) [Ratio]15.8 %High11.5-15.0 ProMSierra Kings HospitalComment on above:Performed By: #### JENNIFER, 31735-8, CMP, 36211-0, 25861-1 #### [facility] ([id number]) [address] [place] [place] [address] [id number] (Bld) [Volume fraction]37.3 %Ggwoqk11-42SrfNmwzurMichael E. Debakey Department Of Veterans Affairs Medical CenterComment on above:Performed By: #### JENNIFER, 11664-0, CMP, 50000-1, 22026-2 #### [facility] ([id number]) [address] [place] [address] 72028Guprqxwivw (Bld) [Mass/Vol]12.0 g/bNAqdrqm72.7-15.5PBlanchard Valley Health System Blanchard Valley HospitalComment on above:Performed By: #### JENNIFER, 31113-0, CMP, , 70349-6 #### [facility] ([id number]) [address] [place] [address] 24089Kxetjddovon (Bld) [#/Vol]1.2 10*3/uLNormal1.0-3.5PBlanchard Valley Health System Blanchard Valley HospitalComment on above:Performed By: #### JENNIFER, 86098-2, CMP, 87623-4, 92892-7 #### [facility] ([id number]) [address] [place] [address] 50896Mgobbyzrqts/100 WBC (Bld)10.8 %NormalSalem City Hospital Comment on above:Performed By: #### JENNIFER, 51972-6, CMP, 40804-4, 38981-1 #### [facility] ([id number]) [address] [place] [address] 98311UZM (RBC) [Entitic mass]30.7 saQiibnq18-85IzxDxlbszMichael E. Debakey Department [facility] Veterans Affairs Medical CenterComment on above:Performed By: #### CBCA, 72663-1, CMP, 07181-9, 91287-9 #### [facility] ([id number]) [address] [place] [address] 46275GKQR (RBC) [Mass/Vol]32.2 g/gTVnjkky97-01PbdSslmxkMichael E. Debakey [facility] Affairs Medical CenterComment on above:Performed By: #### CBCStormy, 85729-2, CMP, 11950-9, 56825-8 #### [facility] ([id number]) [address] [place] [address] 65649ULU (RBC) [Entitic vol]95 pUYhpkjs93-702CycFhnrnq [facility] HospitalComment on above:Performed By: #### CBCStormy, 76598-8, CMP, 59273-5, 84491-3 #### [facility] ([id number]) [address] [address] 69544Pwilshuvt (Bld) [#/Vol]0.6 10*3/uLNormal0-0.9Sal[facility] HospitalComment on above:Performed By: #### CBCA, 24330-8, CMP, 53377-6, 82791-9 #### [facility] ([id number]) [address] [address] 03115Ofrvmmiin/100 WBC (Bld)5.6 %NormalProMichael E. Debakey [facility] Comment on above:Performed By: #### CBCA, 01182-1, CMP, 71723-9, 91107-9 #### [facility] ([id number]) [address] [place] [address] 14390Jgkwidvztac/100 WBC (Bld)83.2 %NormalSalem City Hospital Comment on above:Performed By: #### CBCStormy, 35688-8, CMP, 93916-2, 96509-7 #### [facility] ([id number]) [address] [place] [address] 81604Mjspayad mean volume (Bld) [Entitic vol]7.9 fLNormal7-12 [facility] HospitalComment on above:Performed By: #### CBCA, 74594-7, CMP, 80593-7, 07605-7 #### [facility] ([id number]) [address] [place], [place] [address] 35120Awisiwgiw (Bld) [#/Vol]290 10*3/bNEtuznk341-144RszZqhrfhSalem City HospitalComment on above:Performed By: #### JENNIFER, 74737-6, CMP, , 70230-6 #### [facility] ([id number]) [address] [place] [address] 32244XLI COUNT3.90 X10E12/LNormal3.80-5.20[facility] Comment on above:Performed By: #### JENNIFER, 58516-5, CMP, , 64009-7 #### [facility] ([id number]) [address] [place] [address] 08280MZE (Bld) [#/Vol]11.4 10*3/uLHigh4.0-11.0Sal[facility] City HospitalComment on above:Performed By: #### CBCA, 76835-2, CMP, 01029-9, 44485-0 #### [facility] ([id number]) [address] [place] [address] 72199JHC with Diffon 85-84-0333Ala. Basophil<0.78Rfidmp9.00-0.20 [facility] HospitalComment on above:Performed By: #### CRP, PE, C4, GLYHGB, CDP, IMMS, MARCELA, C3, CK, ANAX, URI, ANCACP, VD25, CP #### [place] [id number] Youth Development Professional: Reagan Mccain. Eosinophil<0.13Euqrlj6.00-0.44[facility] North HospitalComment on above:Performed By: #### CRP, PE, C4, GLYHGB, CDP, IMMS, MARCELA, C3, CK, ANAX, URI, ANCACP, VD25, CP #### [place] [address] Youth Development Professional: Reagan Mccain.Imm.Granulocyte0.03 k/uLNormal0.00-0.30[facility] HospitalComment on above:Performed By: #### CRP, PE, C4, GLYHGB, CDP, IMMS, MARCELA, C3, CK, ANAX, URI, ANCACP, VD25, CP #### [place] [address] Youth Development Professional: Reagan Mccain.Neutrophil (Seg)7.50 k/uLNormal1.50-8.10 [facility] HospitalComment on above:Performed By: #### CRP, PE, C4, GLYHGB, CDP, IMMS, MARCELA, C3, CK, ANAX, URI, ANCACP, VD25, CP #### [place] [address] Youth Development Professional: Lawrence Goff MDBasophils/100 WBC (Bld)0 %Normal0-2MOroville HospitalComment on above:Performed By: #### CRP, PE, C4, GLYHGB, CDP, IMMS, MARCELA, C3, CK, ANAX, URI, ANCACP, VD25, CP #### [place] [address] Youth Development Professional: Lawrence Goff MDEosinophils/100 WBC (Bld)0 %Low1-4[facility] HospitalComment on above:Performed By: #### CRP, PE, C4, GLYHGB, CDP, IMMS, MARCELA, C3, CK, ANAX, URI, ANCACP, VD25, CP #### [address] [address] Youth Development Professional: Lawrence Goff MDErythrocyte distribution width (RBC) [Ratio]15.2 %High11.8-14.4[facility] North HospitalComment on above:Performed By: #### CRP, PE, C4, GLYHGB, CDP, IMMS, MARCELA, C3, CK, ANAX, URI, ANCACP, VD25, CP #### [place] [phone] Youth Development Professional: Lawrence Goff MDHematocrit (Bld) [Volume fraction]32.3 %Low 36.3-47.1MOroville HospitalComment on above:Performed By: #### CRP, PE, C4, GLYHGB, CDP, IMMS, MARCELA, C3, CK, ANAX, URI, ANCACP, VD25, CP #### [place] [phone] Youth Development Professional: Lawrence Goff MDHemoglobin (Bld) [Mass/Vol]10.7 g/dLLow11.9-15.1 [facility] HospitalComment on above:Performed By: #### CRP, PE, C4, GLYHGB, CDP, IMMS, MARCELA, C3, CK, ANAX, URI, ANCACP, VD25, CP #### [place] [phone] Youth Development Professional: Lawrence Goff MDImmature granulocytes/100 WBC (Bld)0 %Normal0 [facility] HospitalComment on above:Performed By: #### CRP, PE, C4, GLYHGB, CDP, IMMS, MARCELA, C3, CK, ANAX, URI, ANCACP, VD25, CP #### [address] [address] Youth Development Professional: Lawrence Goff MDLymphocytes (Bld) [#/Vol]1.54 10*3/uLNormal 1.10-3.70[facility] North HospitalComment on above:Performed By: #### CRP, PE, C4, GLYHGB, CDP, IMMS, MARCELA, C3, CK, ANAX, URI, ANCACP, VD25, CP #### [address] [address] Youth Development Professional: Kendell Mccainhocytes/100 WBC (Bld)15 %Ctp95-12VxhorBethesda North HospitalComment on above:Performed By: #### CRP, PE, C4, GLYHGB, CDP, IMMS, MARCELA, C3, CK, ANAX, URI, ANCACP, VD25, CP #### [place] [phone] Youth Development Professional: JESE Mccain (RBC) [Entitic mass]31.2 hyDkegvv64.2-33.5 [facility] HospitalComment on above:Performed By: #### CRP, PE, C4, GLYHGB, CDP, IMMS, MARCELA, C3, CK, ANAX, URI, ANCACP, VD25, CP #### [address] [phone] Youth Development Professional: JESE MccainC (RBC) [Mass/Vol]33.1 g/oWLskgvh54.4-34.8 [facility] HospitalComment on above:Performed By: #### CRP, PE, C4, GLYHGB, CDP, IMMS, MARCELA, C3, CK, ANAX, URI, ANCACP, VD25, CP #### [address] [place] [phone] Youth Development Professional: KERRIE MccainCV (RBC) [Entitic vol]94.2 yCVuyhkl42.6-102.9 [facility] HospitalComment on above:Performed By: #### CRP, PE, C4, GLYHGB, CDP, IMMS, MARCELA, C3, CK, ANAX, URI, ANCACP, VD25, CP #### [address] [phone] Youth Development Professional: KERRIE Mccianonocytes (Bld) [#/Vol]0.86 10*3/uLNormal 0.10-1.20[facility] HospitalComment on above:Performed By: #### CRP, PE, C4, GLYHGB, CDP, IMMS, MARCELA, C3, CK, ANAX, URI, ANCACP, VD25, CP #### [place] [phone] Youth Development Professional: KERRIE Mccainonocytes/100 WBC (Bld)9 %Normal3-12[facility] HospitalComment on above:Performed By: #### CRP, PE, C4, GLYHGB, CDP, IMMS, MARCELA, C3, CK, ANAX, URI, ANCACP, VD25, CP #### [place] [address] Youth Development Professional: Felecia Mccainutrophil (Seg)76 %Iuvt75-60DawvhBethesda North HospitalComment on above:Performed By: #### CRP, PE, C4, GLYHGB, CDP, IMMS, MARCELA, C3, CK, ANAX, URI, ANCACP, VD25, CP #### [address] [address] Youth Development Professional: Lawrence Goff MDNRBC Automated0.0 per 100 WBCNormal0.0[facility] HospitalComment on above:Performed By: #### CRP, PE, C4, GLYHGB, CDP, IMMS, MARCELA, C3, CK, ANAX, URI, ANCACP, VD25, CP #### [place] [phone] Youth Development Professional: Yanelis Mccain mean volume (Bld) [Entitic vol]9.6 fL Normal8.1-13.5[facility] North HospitalComment on above:Performed By: #### CRP, PE, C4, GLYHGB, CDP, IMMS, MARCELA, C3, CK, ANAX, URI, ANCACP, VD25, CP #### [place] [phone] Youth Development Professional: Rob Mccain (Bld) [#/Vol]242 10*3/oJCqfrxd417-629 [facility] HospitalComment on above:Performed By: #### CRP, PE, C4, GLYHGB, CDP, IMMS, MARCELA, C3, CK, ANAX, URI, ANCACP, VD25, CP #### [place] [phone] Youth Development Professional: NATALIE Mccain (Bld) [#/Vol]3.43 10*6/uLLow3.95-5.11[facility] HospitalComment on above:Performed By: #### CRP, PE, C4, GLYHGB, CDP, IMMS, MARCELA, C3, CK, ANAX, URI, ANCACP, VD25, CP #### [place] [address] Youth Development Professional: NATALIE Mccain morphology finding Nom (Bld)ANISOCYTOSIS PRESENTNormalBethesda North HospitalComment on above:Performed By: #### CRP, PE, C4, GLYHGB, CDP, IMMS, MARCELA, C3, CK, ANAX, URI, ANCACP, VD25, CP #### [place] [address] Youth Development Professional: GABINO Mccain (Bld) [#/Vol]10.0 10*3/uLNormal3.5-11.3[facility] Memorial HospitalComment on above:Performed By: #### CRP, PE, C4, GLYHGB, CDP, IMMS, MARCELA, C3, CK, ANAX, URI, ANCACP, VD25, CP #### [facility] [address] [place], [place] [id number] Youth Development Professional: Lawrence Goff [facility] – OKEMAHOMPREHENSIVE METABOLIC PANELon 01-20-2024 Albumin [Mass/Vol]4.7 g/dLNormal3.2-5.3PBlanchard Valley Health System Bl[facility]ard Valley HospitalComment on above:Performed By: #### JENNIFER, 45836-3, CMP, 82217-2, 00998-6 #### [facility] ([id number]) [address] [place] [address] 32417XFH [Catalytic activity/Vol]85 U/OIfqcfq61-002TpaDrgmlmMichael E. Debakey Department Of Veterans Affairs Medical CenterComment on above:Performed By: #### JENNIFER, 69343-2, CMP, 06181-6, 82257-7 #### [facility] ([id number]) [address] [place] [address] 20654BNR [Catalytic activity/Vol]17 U/LNormal0-31PBlanchard Valley Health System [facility] Valley HospitalComment on above:Performed By: #### CBCA, 58280-0, CMP, 93400-0, 85021-8 #### [facility] ([id number]) [address] [place] [address] 64070Ipwfl gap [Moles/Vol]8 mmol/LNormal5-15[facility] HospitalComment on above:Performed By: #### CBCA, 47132-7, CMP, 13068-4, 69668-8 #### [facility] ([id number]) [address] [place] [address] [place] [address]QON [Catalytic activity/Vol]19 U/LNormal0-41ProMichael E. Debakey Department Of Veterans Affairs Medical CenterComment on above:Performed By: #### JENNIFER, 46096-7, CMP, 88680-7, 51602-9 #### [facility] ([id number]) [address] [place] [address] 53011Imcapjakr [Mass/Vol]0.3 mg/dLNormal0.3-1.2PBlanchard Valley Health System [facility] Valley HospitalComment on above:Performed By: #### JENNIFER, 33653-7, CMP, 37422-5, 75257-3 #### [facility] ([id number]) [address] [place] [address] 16164Cajdhhi [Mass/Vol]9.3 mg/dLNormal8.5-10.5PBlanchard Valley Health System [facility] Valley HospitalComment on above:Performed By: #### JENNIFER, 91712-5, CMP, , 69913-4 #### [facility] ([id number]) [address] [place] [address] 29619Lzpdmrae [Moles/Vol]112 mmol/ALukp06-707LdsGgpipqMichael E. Debakey Department Of Veterans Affairs Medical CenterComment on above:Performed By: #### JENNIFER, 53153-9, CMP, 28748-5, 94777-4 #### [facility] ([id number]) [address] [place] [address], [place] [address] [Moles/Vol]14 mmol/GEiv55-39HcxRlauieBlanchard Valley Health System [facility] Comment on above:Performed By: #### JENNIFER, 28817-3, CMP, 43330-3, 55524-3 #### [facility] ([id number]) [address] [place] [address] 35812Sfoanfswpt [Mass/Vol]3.53 mg/dLHigh0.40-1.00ProMichael E. Debakey Department Of Veterans Affairs Medical CenterComment on above:Result Comment: METHOD TRACEABLE TO IDMS STANDARD Performed By: #### JENNIFER, 43494-7, DARLYN, , 18434-6 #### [facility] ([id number]) [address] [place] [address] 00980YUH/1.73 sq M.predicted among non-blacks MDRD (S/P/Bld) [Vol rate/Area]15 mL/min/{1.73_m2}Low>59ProMichael E. Debakey Department Of Veterans Affairs Medical CenterComment on above: Result Comment: Reported eGFR is based on the CKD-EPI 2020 equation that does not use a race coefficient.Performed By: #### JENNIFER, 50084-3, DARLYN, , 50847-6 #### [facility] ([id number]) [address] [place] [address] 31335Dzrxhre [Mass/Vol]115 mg/iUEjck68-62ZrgZwmldtSalem City Hospital Comment on above:Performed By: #### JENNIFER, 85971-6, DARLYN, , 43633-0 #### [facility] ([id number]) [address] [place] [address] 23611Sregkmvjm [Moles/Vol]8.7 mmol/LCritically high3.5-5.0[facility] HospitalComment on above:Performed By: #### JENNIFER, 17780-3, DARLYN, , 03707-4 #### [facility] ([id number]) [address] [place] [address] 69635Cuzmjal [Mass/Vol]8.6 g/dLHigh6.0-8.0[facility] Comment on above:Performed By: #### JENNIFER, 96213-7, DARLNY, , 92066-5 #### [facility] ([id number]) [address] [place] [address] 42430Ljyfhe [Moles/Vol]134 mmol/ZMbnitg366-396QfxLcsarg Sewaren HospitalComment on above:Performed By: #### CBCA, 73393-5, CMP, 51388-0, 80535-9 #### [facility] ([id number]) [address] [place] [address], [place], [place] [address]Ypba nitrogen [Mass/Vol]88 mg/dLHigh5-23ProMedica Sierra Kings HospitalComment on above:Performed By: #### CBCA, 33600-0, CMP, 25883-8, 08792-9 #### [facility] ([id number]) [address] [place] [address], [place], [place] [address]Qear Metabolic Profon 34-82-6596Zcgdpqm [Mass/Vol]4.4 g/dL Normal3.5-5.2MOroville HospitalComment on above:Performed By: #### CRP, PE, C4, GLYHGB, CDP, IMMS, MARCELA, C3, CK, ANAX, URI, ANCACP, VD25, CP #### [facility] [address] [address] Youth Development Professional: Lawrence Goff MDAlbumin/Glob Ratio2.5Rrvsqt3.0-2.5[facility] HospitalComment on above:Performed By: #### CRP, PE, C4, GLYHGB, CDP, IMMS, MARCELA, C3, CK, ANAX, URI, ANCACP, VD25, CP #### [address] [phone] Youth Development Professional: Verna Mccainkaline Phos87 U/UPxdmow98-773BmvjqBethesda North HospitalComment on above:Performed By: #### CRP, PE, C4, GLYHGB, CDP, IMMS, MARCELA, C3, CK, ANAX, URI, ANCACP, VD25, CP #### [facility] [email or web address] [address] [place] [address] [phone] Youth Development Professional: Lawrence oGff MDALT [Catalytic activity/Vol]18 U/ZRkxwec11-64 [facility] HospitalComment on above:Performed By: #### CRP, PE, C4, GLYHGB, CDP, IMMS, MARCELA, C3, CK, ANAX, URI, ANCACP, VD25, CP #### [place] [phone] Youth Development Professional: Liliya Mccain gap [Moles/Vol]15 mmol/LNormal9-16[facility] HospitalComment on above:Performed By: #### CRP, PE, C4, GLYHGB, CDP, IMMS, MARCELA, C3, CK, ANAX, URI, ANCACP, VD25, CP #### [place] [address] Youth Development Professional: Lawrence oGff MDAST [Catalytic activity/Vol]22 U/ZLswsqe15-66 [facility] HospitalComment on above:Performed By: #### CRP, PE, C4, GLYHGB, CDP, IMMS, MARCELA, C3, CK, ANAX, URI, ANCACP, VD25, CP #### [place] [phone] Youth Development Professional: Lawrence Goff MDBilirubin [Mass/Vol]0.2 mg/dLNormal0.00-1.20 [facility] HospitalComment on above:Performed By: #### CRP, PE, C4, GLYHGB, CDP, IMMS, MARCELA, C3, CK, ANAX, URI, ANCACP, VD25, CP #### [place] [address] Youth Development Professional: ARNOLDO Mccainalcium [Mass/Vol]10.5 mg/dLHigh8.6-10.4[facility] HospitalComment on above:Performed By: #### CRP, PE, C4, GLYHGB, CDP, IMMS, MARCELA, C3, CK, ANAX, URI, ANCACP, VD25, CP #### [place] [phone] Youth Development Professional: ARNOLDO Mccainhloride [Moles/Vol]110 mmol/QAkpt25-537EajvzBethesda North HospitalComment on above:Performed By: #### CRP, PE, C4, GLYHGB, CDP, IMMS, MARCELA, C3, CK, ANAX, URI, ANCACP, VD25, CP #### [facility] [email or web address] [address] [place] [address] [phone] Youth Development Professional: ARNOLDO MccainO2 [Moles/Vol]18 mmol/PIde25-37WduudBethesda North HospitalComment on above:Performed By: #### CRP, PE, C4, GLYHGB, CDP, IMMS, MARCELA, C3, CK, ANAX, URI, ANCACP, VD25, CP #### [address] [phone] Youth Development Professional: ARNOLDO Mccainreatinine [Mass/Vol]2.9 mg/dLHigh0.50-0.90[facility] HospitalComment on above:Performed By: #### CRP, PE, C4, GLYHGB, CDP, IMMS, MARCELA, C3, CK, ANAX, URI, ANCACP, VD25, CP #### [address] [phone] Youth Development Professional: Lawrence Goff MDGFR/1.73 sq M.predicted among non-blacks MDRD (S/P/Bld) [Vol rate/Area]19 mL/min/{1.73_m2}Low>60[facility] HospitalComment on above:Result Comment: These results are not [...] CK, ANAX, URI, ANCACP, VD25, CP #### [address] [phone] Youth Development Professional: Lawrence Goff MDGlucose [Mass/Vol]146 mg/uUEvip47-29OuhtsOroville HospitalComment on above:Performed By: #### CRP, PE, C4, GLYHGB, CDP, IMMS, MARCELA, C3, CK, ANAX, URI, ANCACP, VD25, CP #### [address] [phone] Youth Development Professional: MICHEL Mccainotassium [Moles/Vol]4.4 mmol/LNormal3.7-5.3 [facility] HospitalComment on above:Performed By: #### CRP, PE, C4, GLYHGB, CDP, IMMS, MARCELA, C3, CK, ANAX, URI, ANCACP, VD25, CP #### [place] [address] Youth Development Professional: Lawrence Goff MDProtein [Mass/Vol]6.9 g/dLNormal6.6-8.7[facility] HospitalComment on above:Performed By: #### CRP, PE, C4, GLYHGB, CDP, IMMS, MARCELA, C3, CK, ANAX, URI, ANCACP, VD25, CP #### [place] [address] Youth Development Professional: Lawrence Goff MDSodium [Moles/Vol]143 mmol/DWfumzl392-303ZznvrBethesda North HospitalComment on above:Performed By: #### CRP, PE, C4, GLYHGB, CDP, IMMS, MARCELA, C3, CK, ANAX, URI, ANCACP, VD25, CP #### [address] [phone] Youth Development Professional: Lawrence Goff MDUrea nitrogen [Mass/Vol]76 mg/dLHigh6-20[facility] HospitalComment on above:Performed By: #### CRP, PE, C4, GLYHGB, CDP, IMMS, MARCELA, C3, CK, ANAX, URI, ANCACP, VD25, CP #### [facility] [email or web address] [address] [place] [address] Youth Development Professional: Bert Mccainatine Kinaseon 70-95-5206AA [Catalytic activity/Vol]108 U/GUdoftg19-441OmmgzBethesda North HospitalComment on above:Performed By: #### CRP, PE, C4, GLYHGB, CDP, IMMS, MARCELA, C3, CK, ANAX, URI, ANCACP, VD25, CP #### [address] [phone] Youth Development Professional: Bert Mccainatinine,Random Uron 55-64-3225Mmoxhqdeis [Mass/Vol]21.1 mg/dLLow28.0-217.0[facility] HospitalComment on above:Performed By: #### CRP, PE, C4, GLYHGB, CDP, IMMS, MARCELA, C3, CK, ANAX, URI, ANCACP, VD25, CP #### [address] [address] Youth Development Professional: Rikki Mccain D-dimer DDU (PPP) [Mass/Vol]on 01-20-2024 D DIMER<150Normal<255Sal[facility] City HospitalComment on above:Result Comment: Results <255 ng/mL DDU: The presence of a VTE can safely be excluded with a negative D-Dimer result and Wells score. A negative result doesn't exclude the possibility of DIC. The test be repeated along with other diagnostic tests if the patient's symptoms persist or worsen. [email or web address] By: #### CBCA, 84306-3, CMP, 44641-5, 90549-4 #### [facility] ([id number]) [address] [place] [address] 15162IBK ( test) Ql (U)on 95-37-9296Mdep HCG ( test) Ql (U)NegativeNormalNEGProMedica Sierra Kings HospitalComment on above: Performed By: #### 2106-3 #### [facility] ([id number]) [address] [place] [address] 28568Ttjsaenteutgknskd 85-48-4078IyY [Mass/Vol]254 mg/sOTjacvf02-208 [facility] HospitalComment on above:Performed By: #### CRP, PE, C4, GLYHGB, CDP, IMMS, MARCELA, C3, CK, ANAX, URI, ANCACP, VD25, CP #### [place] [address] Youth Development Professional: Lawrence Goff MDIgG [Mass/Vol]935 mg/lLAhdwun027-0173FlqdiBethesda North HospitalComment on above:Performed By: #### CRP, PE, C4, GLYHGB, CDP, IMMS, MARCELA, C3, CK, ANAX, URI, ANCACP, VD25, CP #### [place] [address] Youth Development Professional: Lawrence Goff MDIgM [Mass/Vol]38 mg/eRCxe76-354EyoljBethesda North HospitalComment on above:Performed By: #### CRP, PE, C4, GLYHGB, CDP, IMMS, MARCELA, C3, CK, ANAX, URI, ANCACP, VD25, CP #### [place] [address] Youth Development Professional: Lawrence Goff MDLactic Acidon 07-53-0680Spclzq Acid,Whole Bl1.3 mmol/LNormal0.7-2.1MOroville HospitalComment on above:Performed By: #### CRP, PE, C4, GLYHGB, CDP, IMMS, MARCELA, C3, CK, ANAX, URI, ANCACP, VD25, CP #### [email or web address] [address] [place] [address] [phone] Youth Development Professional: Lawrence Goff, MDMAGNESIUMon 23-24-1853Urvnxlsat [Mass/Vol]2.3 mg/dLNormal1.8-2.6ProMichael E. Debakey Department Of Veterans Affairs Medical CenterComment on above:Performed By: #### CBCA, 67609-7, CMP, 91140-2, 49583-7 #### [facility] ([id number]) [address] [place] [address] 13185Romwmwfblzy 95-82-2470Obakbygut [Mass/Vol]55 ng/bWVoaecm01-88 [facility] HospitalComment on above:Performed By: #### CRP, PE, C4, GLYHGB, CDP, IMMS, MARCELA, C3, CK, ANAX, URI, ANCACP, VD25, CP #### [email or web address] [address] [place] [address] Youth Development Professional: Lawrence Goff, MDPOTASSIUMon 77-00-0816Hhesiyyny [Moles/Vol]4.8 mmol/LNormal3.5-5.0ProMichael E. Debakey Department Of Veterans Affairs Medical CenterComment on above:Performed By: #### 2823-3 #### [facility] ([id number]) [address] [place] [address] 533[address]SBD, [place] 17-33-2463BRG, Vcwhwl32.0 pg/fUGjphjh80-90OvfszBethesda North HospitalComment on above:Result Comment: SAMPLES FROM PATIENTS ROUTINELY RECEIVING HIGH DOSE BIOTIN THERAPY MAY SHOW FALSELY DEPRESSED RESULTS. ADDITIONAL INFORMATION MAY BE REQUIRED FOR DIAGNOSIS.Performed By: #### CRP, PE, C4, GLYHGB, CDP, IMMS, MARCELA, C3, CK, ANAX, URI, ANCACP, VD25, CP #### [employer] [address] [place] [address] [phone] Youth Development Professional: ARNOLDO Mccainalcium [Moles/Vol]1.29 mmol/LNormal1.13-1.33 [facility] HospitalComment on above:Performed By: #### CRP, PE, C4, GLYHGB, CDP, IMMS, MARCELA, C3, CK, ANAX, URI, ANCACP, VD25, CP #### [facility] [email or web address] [address] [place] [address] [phone] Youth Development Professional: SARA Mccainodium, Random Uron 57-90-2270Swoxaz (U) [Moles/Vol]134 mmol/LNormalBethesda North HospitalComment on above: Result Comment: No normal range established.Performed By: #### CRP, PE, C4, GLYHGB, CDP, IMMS, MARCELA, C3, CK, ANAX, URI, ANCACP, VD25, CP #### [address] [phone] Youth Development Professional: Crista Mccain I.cardiac High sensitivity method [Mass/Vol]on HOUR TROP I, HIGH SENSITIVITY<2Normal<16ProCleveland Clinic Hillcrest Hospitalca Sierra Kings HospitalComment on above:Performed By: #### 70421-8 #### [facility] ([id number]) [address] [place] [address] 43023DTVQVQWS I, HIGH SENSITIVITY2 ng/LNormal<16ProMichael E. Debakey Department Of Veterans Affairs Medical CenterComment on above:Performed By: #### CBCA, 46121-1, CMP, 29901-3, 39350-3 #### [facility] ([id number]) [address] [place] [address] 372[address]KYM MACROSCOPIC NURon 58-92-2769INSJCLZHU NURNegativeNormalNEG [facility] HospitalComment on above:Performed By: #### NUM #### [facility] ([id number]) [address] [place] [address] [place] [address]161DFOBE/HGB NURNegativeNoalNEGSalem City HospitalComment on above:Performed By: #### NUM #### [facility] ([id number]) [address] [place] [address] [place] [address]BYDYFVX MQL957 mg/dLAbnoalNEGSalem City Hospital Comment on above:Performed By: #### NUM #### [facility] ([id number]) [address] [place] [address] [place] [address]52VDNEHGU NURNegativeNormalNEGSalem City HospitalComment on above:Performed By: #### NUM #### [facility] ([id number]) [address] [place] [address] [place] [address]OZKDTNLEN ESTERASE NURNegativeNoalNEGSalem City HospitalComment on above:Performed By: #### NUM #### [facility] ([id number]) [address] [place] [address] [place] [address]PORVVUY NURNegativeNormalNEGSalem City HospitalComment on above:Performed By: #### NUM #### [facility] ([id number]) [address] [place] [address] [place] 27178KV NUR5.0Tgmghe0.0-8.5Pro[facility] HospitalComment on above:Performed By: #### NUM #### [facility] ([id number]) [address] [place] [address] [place] [address]UCGGUPX NURNegativeNormalNEGProMichael E. Debakey Department Of Veterans Affairs Medical CenterComment on above:Performed By: #### NUM #### [facility] ([id number]) [address] [place] [address] [place] [address]60PFUKXDME GRAVITY NUR1.908Jofuww7.003-1.035ProMichael E. Debakey Department Of Veterans Affairs Medical CenterComment on above:Performed By: #### NUM #### [facility] ([id number]) [address] [place] [address], [place], [place] [id number] NUR0.2 eu/dLNormal<1.1[facility] Comment on above:Performed By: #### NUM #### [facility] ([id number]) [address] [place] [address], [place], [place] [address]Lrci Acidon [id number] [Mass/Vol]6.8 mg/dLHigh2.4-5.7Bet[facility] North HospitalComment on above:Performed By: #### CRP, PE, C4, GLYHGB, CDP, IMMS, MARCELA, C3, CK, ANAX, URI, ANCACP, VD25, CP #### [place] [id number] Youth Development Professional: Lawrence Goff MDUrinalysis w/ Microon [id number] NormalNONEMeRegional Medical Center of San JoseComment on above:Performed By: #### CRP, PE, C4, GLYHGB, CDP, IMMS, MARCELA, C3, CK, ANAX, URI, ANCACP, VD25, CP #### [place] [id number] Youth Development Professional: Raissa Mccainirubin, SemiQt,UrNegativeNormalNEGBethesda North HospitalComment on above:Performed By: #### CRP, PE, C4, GLYHGB, CDP, IMMS, MARCELA, C3, CK, ANAX, URI, ANCACP, VD25, CP #### [facility] [email or web address] [address] [place], [place] [id number] Youth Development Professional: Singh Mccain, UrineNegativeNormalNEGBethesda North HospitalComment on above:Performed By: #### CRP, PE, C4, GLYHGB, CDP, IMMS, MARCELA, C3, CK, ANAX, URI, ANCACP, VD25, CP #### [address] [address] Youth Development Professional: ARNOLDO MccainastsNoneNormal0-8Bethesda North HospitalComment on above:Result Comment: Reference range defined for non- centrifuged specimen.Performed By: #### CRP, PE, C4, GLYHGB, CDP, IMMS, MARCELA, C3, CK, ANAX, URI, ANCACP, VD25, CP #### [address] [address] Youth Development Professional: ARNOLDO Mccainlarity (U)ClearNormalCLEARBethesda North HospitalComment on above:Performed By: #### CRP, PE, C4, GLYHGB, CDP, IMMS, MARCELA, C3, CK, ANAX, URI, ANCACP, VD25, CP #### [address] [address] Youth Development Professional: ARNOLDO Mccainolor (U)YellowNormalYSt. John of God HospitalComment on above:Performed By: #### CRP, PE, C4, GLYHGB, CDP, IMMS, MARCELA, C3, CK, ANAX, URI, ANCACP, VD25, CP #### [address] [phone] Youth Development Professional: Lawrence Goff MDEpithelial cells LM Ql (Urine sed)NoneNormal0-5 [facility] North HospitalComment on above:Performed By: #### CRP, PE, C4, GLYHGB, CDP, IMMS, MARCELA, C3, CK, ANAX, URI, ANCACP, VD25, CP #### [address] [phone] Youth Development Professional: Lawrence Goff MDGlucose Ql (U)NegativeNormalNEGBethesda North HospitalComment on above:Performed By: #### CRP, PE, C4, GLYHGB, CDP, IMMS, MARCELA, C3, CK, ANAX, URI, ANCACP, VD25, CP #### [address] [phone] Youth Development Professional: Mike Mccainones Ql (U)NegativeNormalNEGBethesda North HospitalComment on above:Performed By: #### CRP, PE, C4, GLYHGB, CDP, IMMS, MARCELA, C3, CK, ANAX, URI, ANCACP, VD25, CP #### [place] [phone] Youth Development Professional: Lawrence Goff MDLeukocyte esterase Test strip Ql (U)Negative NormalNEGBethesda North HospitalComment on above:Performed By: #### CRP, PE, C4, GLYHGB, CDP, IMMS, MARCELA, C3, CK, ANAX, URI, ANCACP, VD25, CP #### [place] [address] Youth Development Professional: Manohar Mccain,UrNegativermGeorgetown Behavioral HospitalComment on above:Performed By: #### CRP, PE, C4, GLYHGB, CDP, IMMS, MARCELA, C3, CK, ANAX, URI, ANCACP, VD25, CP #### [place] [phone] Youth Development Professional: MICHEL Mccain,Ur5.6Obsren9.0-8.0MerMercy Medical Center Merced Community CampusComment on above:Performed By: #### CRP, PE, C4, GLYHGB, CDP, IMMS, MARCELA, C3, CK, ANAX, URI, ANCACP, VD25, CP #### [place] [phone] Youth Development Professional: Soledad Mccain Ql (U)NegativeNormalNEGBethesda North HospitalComment on above:Performed By: #### CRP, PE, C4, GLYHGB, CDP, IMMS, MARCELA, C3, CK, ANAX, URI, ANCACP, VD25, CP #### [facility] [address] [place] [phone] Youth Development Professional: Rigoberto Mccain. Hamill,Ur1.054Dodtjn3.005-1.030Bethesda North HospitalComment on above:Performed By: #### CRP, PE, C4, GLYHGB, CDP, IMMS, MARCELA, C3, CK, ANAX, URI, ANCACP, VD25, CP #### [address] [phone] Youth Development Professional: Rosmery Mccain RBC's0 TO 8Knhfjs6-3UiubmBethesda North HospitalComment on above:Result Comment: Reference range defined for non- centrifuged specimen.Performed By: #### CRP, PE, C4, GLYHGB, CDP, IMMS, MARCELA, C3, CK, ANAX, URI, ANCACP, VD25, CP #### [address] [phone] Youth Development Professional: Rosmery Mccain WBC's2 TO 4Fjsuwc3-5ZrhrgBethesda North HospitalComment on above:Performed By: #### CRP, PE, C4, GLYHGB, CDP, IMMS, MARCELA, C3, CK, ANAX, URI, ANCACP, VD25, CP #### [address] [phone] Youth Development Professional: Lawrence Goff MDUrobilinogen,UrNormalNormal0.0-1.0Bethesda North HospitalComment on above:Performed By: #### CRP, PE, C4, GLYHGB, CDP, IMMS, MARCELA, C3, CK, ANAX, URI, ANCACP, VD25, CP #### [address] [phone] Youth Development Professional: Lawrence Goff MDVenous Blood Gaseson 83-77-5503Qqol Temp.37.0 NormalBethesda North HospitalComment on above:Performed By: #### CRP, PE, C4, GLYHGB, CDP, IMMS, MARCELA, C3, CK, ANAX, URI, ANCACP, VD25, CP #### [email or web address] [address] [place] [phone] Youth Development Professional: Francis Mccain Hgb4.1 %Normal0-5Bethesda North HospitalComment on above:Result Comment: Reference Range: Non-Smokers 0-2% Average Smoker 2-4% Heavy Smoker <10%Performed By: #### CRP, PE, C4, GLYHGB, CDP, IMMS, MARCELA, C3, CK, ANAX, URI, ANCACP, VD25, CP #### [email or web address] [address] [place] [address] Youth Development Professional: Lawrence Goff MDFIO2INFORMATION NOT PROVIDEDNormalBethesda North HospitalComment on above:Performed By: #### CRP, PE, C4, GLYHGB, CDP, IMMS, MARCELA, C3, CK, ANAX, URI, ANCACP, VD25, CP #### [facility] [email or web address] [address] [place], [place] [phone] Youth Development Professional: Lawrence Goff MDHCO3 (Bld) [Moles/Vol]19.9 mmol/JDnk55-73VwuhlBethesda North HospitalComment on above:Performed By: #### CRP, PE, C4, GLYHGB, CDP, IMMS, MARCELA, C3, CK, ANAX, URI, ANCACP, VD25, CP #### [facility] [email or web address] [address] [place] [address] Youth Development Professional: Lawrence Goff MDNegative Base Excess4.3 mmol/LHigh0.0-2.0Bethesda North HospitalComment on above:Performed By: #### CRP, PE, C4, GLYHGB, CDP, IMMS, MARCELA, C3, CK, ANAX, URI, ANCACP, VD25, CP #### [address] [phone] Youth Development Professional: Lawrence Goff MDOxygen saturation in Blood98.3 %High60.0-85.0 [facility]da North HospitalComment on above:Performed By: #### CRP, PE, C4, GLYHGB, CDP, IMMS, MARCELA, C3, CK, ANAX, URI, ANCACP, VD25, CP #### [address] [phone] Youth Development Professional: Michel MccainCO235.1 mm SpXsy56-82BulyzBethesda North HospitalComment on above:Performed By: #### CRP, PE, C4, GLYHGB, CDP, IMMS, MARCELA, C3, CK, ANAX, URI, ANCACP, VD25, CP #### [address] [phone] Youth Development Professional: Lawrence Goff [facility] (Bld)7.371 [pH]Normal7.320-7.420Bethesda North HospitalComment on above:Performed By: #### CRP, PE, C4, GLYHGB, CDP, IMMS, MARCELA, C3, CK, ANAX, URI, ANCACP, VD25, CP #### [address] [phone] Youth Development Professional: Michel MccainO2137.0 mm TpIacv89-96VlfaiBethesda North HospitalComment on above:Performed By: #### CRP, PE, C4, GLYHGB, CDP, IMMS, MARECLA, C3, CK, ANAX, URI, ANCACP, VD25, CP #### [address] [phone] Youth Development Professional: Lawrence Goff MDVitamin D 25 OHon 81-31-1132Krmtdld D 25 OH28.5 ng/mLLow30.0-100.0Bethesda North HospitalComment on above:Result Comment: Reference Range: Vitamin D status Range Deficiency <20 ng/mL Mild Deficiency 20-30 ng/mL Sufficiency 30-100 ng/mL Toxicity >100 ng/mLPerformed By: #### CRP, PE, C4, GLYHGB, CDP, IMMS, MARCELA, C3, CK, ANAX, URI, ANCACP, VD25, CP #### [facility] [email or web address] [facility] [place] [address] Youth Development Professional: MARGY MccainR CHEST 1 VWon 43-38-9247SD CHEST 1 VWXR CHEST 1 VW XR CHEST 1 VW History: Near syncope. One view study. Comparison: None Impression: * No significant interval change.No focal airspace disease or infiltrate is appreciated. No congestive features or large effusion. No pneumothorax. Finalized by Keisha Conway MD on 01/20/2024 1:47 PMNormalProMedica Sierra Kings Hospital Erythrocyte distribution width Auto (RBC) [Ratio]on 52-83-9240Likmbgfalai distribution width (RBC) [Ratio]13.8 %11.0-15.0[facility] Estimated glomerular filtration rate (GFR) non- Americanon 11-05-2023 GFR/1.73 sq M.predicted among non-blacks MDRD (S/P/Bld) [Vol rate/Area]35 mL/min/{1.73_m2}>=60[facility]'S Medical CenterGlobulin Calc (S) [Mass/Vol]on 43-03-9039Rraccogp (S) [Mass/Vol]3.7 g/dLMercy Health St. Rita'S Medical CenterHematocrit Auto (Bld) [Volume fraction]on 49-90-3221Ormmdjcjvv (Bld) [Volume fraction]36.6 %36.0-48.0[facility]'S Medical CenterHemoglobin [Mass/volume] in Bloodon 76-50-4523Mfwrkmfldl (Bld) [Mass/Vol]12.1 g/dL12.0-16.[address] [facility] Medical CenterLaboratory - Chemistry and Chemistry - challengeon 75-63-4831Wfvukyo [Mass/Vol]3.9 g/dL3.4-5.0[facility]'S Medical CenterALP [Catalytic activity/Vol]127 U/Y59-636UboxzjqhzMercy Health St. Rita'S Medical CenterALT [Catalytic activity/Vol]19 U/A19-10NesrhneufMercy Health St. Rita'S Medical CenterAST [Catalytic activity/Vol]15 U/N82-81SghwgpcpxMercy Health St. [facility] Center Bilirubin [Mass/Vol]0.2 mg/dL0.2-1.0[facility]'S Medical CenterCalcium [Mass/Vol]9.3 mg/dL8.5-10.1FChildren's Hospital of ColumbusChloride [Moles/Vol] 104 mmol/W06-260NideregnmMercy Health St. Rita'S Medical CenterCO2 [Moles/Vol]22.6 mmol/L 21.0-32.0[facility]'S Medical CenterCreatinine [Mass/Vol]1.57 mg/dL 0.55-1.02[facility]'S Medical CenterGFR/1.73 sq M.predicted MDRD (S/P/Bld) [Vol rate/Area]42 mL/min/{1.73_m2}>=60[facility]'S Medical CenterGlucose [Mass/Vol]167 mg/fM54-456KhzevyzgcMercy Health St. Rita'S Medical CenterMagnesium [Mass/Vol] 1.9 mg/dL1.8-2.4FChildren's Hospital of ColumbusPotassium [Moles/Vol]4.7 mmol/L 3.5-5.1FChildren's Hospital of ColumbusProtein [Mass/Vol]7.6 g/dL6.4-8.2 [facility]igh Hospitalodium [Moles/Vol]141 mmol/R617-287FqkkqqopiMercy Health St. Rita'S Medical CenterUrate [Mass/Vol]5.9 mg/dL2.6-6.0[facility] Rita'S Medical CenterUrea nitrogen [Mass/Vol]30.0 mg/dL7.0-18.0[facility]'S Medical CenterUrea nitrogen/Creatinine [Mass ratio]19.1 mg/mgMercy Health St. Rita'S Medical CenterBilirubin Ql (U)NegativeNEGATIVEMercy Health St. Rita'S Medical Center Glucose (U) [Mass/Vol]NegativeNEGATIVEMercy Health St. Rita'S Medical CenterKetones Ql (U)NegativeNEGATIVEMercy Health St. Rita'S Medical CenterpH (U)5.5 [pH]5.0-9.0 [facility]igh Hospitalpecific gravity (U) [Rel density]1.025 1.005-1.025[facility] Rita'S Medical CenterUrobilinogen Qn (U)0.2 {Nikolas'U}/dL0.2-1.0[facility] Medical CenterLaboratory - Specimen informationon 84-49-9865Qadtyqshxn (U)CLEARCLEARFChildren's Hospital of ColumbusColor (U)LT. YELLOWYELLOWMercy Health St. Rita'S Medical CenterLaboratory - Urinalysison 96-73-5040Eywaxaabl esterase Test strip Ql (U)NegativeNEGATIVE [facility]'S Medical CenterNitrite Ql (U)NegativeNEGATIVEMercy Health St. Rita'S Medical CenterProtein (U) [Mass/Vol]11.4 mg/dL<=11.9[facility]'S Medical CenterProtein Ql (U)NegativeNEG/TRACEMercy Health St. Rita'S [facility] Center Leukocytes [#/volume] corrected for nucleated erythrocytes in Blood by Automated counon 78-20-7940IJB corrected for nucl RBC Auto (Bld) [#/Vol]7.5 10 3/uL 4.0-11.0[facility] Rita'S Medical CenterMCH Auto (RBC) [Entitic mass]on 23-12-2908EDI (RBC) [Entitic mass]30.7 pg26.7-34.0[facility]'S Medical CenterMCHC Auto (RBC) [Mass/Vol]on 96-51-3536DOXS (RBC) [Mass/Vol]33.1 g/dL 29.9-35.2FChildren's Hospital of ColumbusMCV Auto (RBC) [Entitic vol]on 03-92-8928KNV (RBC) [Entitic vol]92.9 fL81.0-99.0[facility] Medical CenterNo Panel Informationon 76-89-533296696205-Loiklib Vitamin D Total36.3 ng/mL [facility] Rita'S Medical CenterComment on above:<20 ng/mL Vit D jijtwopiq14- <30 ng/mL Vit D faunhzlsztnl02-748 ng/mL Vit D sufficient>100 ng/mL Potential ToxicityParathyroid Hormone (Intact)53 pg/tQ35-59SndvkbynjMercy Health St. Rita'S Medical CenterComment on above:Performed at: [address] [id number] Director: Peng Wing PhD, Phone: [phone] Phosphorus Level4.0 mg/dL2.6-4.7FChildren's Hospital of ColumbusUrine Occult BloodNegativeNEGATIVEMercy Health St. Rita'S Medical CenterUrine Random Creatinine 132.61 mg/dL20.00-300.00[facility] Rita'S Medical CenterPlatelet mean volume Auto (Bld) [Entitic vol]on 73-25-4351Xckeodxi mean volume (Bld) [Entitic vol]9.3 fL9.5-13.5FChildren's Hospital of ColumbusPlatelets Auto (Bld) [#/Vol]on 08-47-2699Uceidvxhr (Bld) [#/Vol]273 10 3/cL110-316NyjankjfhMercy Health St. Rita'S Medical CenterRBC Auto (Bld) [#/Vol]on 24-83-2488FTD (Bld) [#/Vol]3.94 10 6/uL4.20-5.40 [facility] Hospitalerum or plasma albumin/globulin mass ratioon 05-80-0056Tygtiqf/Globulin [Mass ratio]1.1 {ratio}[facility] Hospitalerum or plasma anion gap determinationon 34-87-6130Oaulx gap [Moles/Vol] 19.1 mmol/LFChildren's Hospital of ColumbusUrine protein/creatinine ratioon 95-44-4363Ajfefdo/Creatinine (U) [Ratio]0.09[facility] GLYCOHEMOGLOBIN A1Con 41-09-0391QSR RECOMMENDATIONSEE BELOWNoThe Christ HospitalComment on above:Result Comment: ADA RECOMMENDED LIMIT 4.0 - 6.0 ADA THERAPEUTIC TARGET < 7.0 ACTION SUGGESTED > 7.0Performed By: #### A1C #### [facility] [address] [place] [address] [address] Mitesh AnthonyGlucose [Mass/Vol]137 mg/dLAultman Alliance Community HospitalComment on above:Performed By: #### A1C #### [facility] [address] [address] [address] Mitesh AnthonyHbA1c (Bld) [Mass fraction]6.4 %Critically high4.5-6.2The [facility] HospitalComment on above:Performed By: #### A1C #### [facility] [address] [place] [address] Dr. Mitesh SawyerALBUMIN, RAND URon 57-78-0420ePAQ7.7 mg/LNormal<=30.0The [facility] HospitalComment on above:Performed By: #### MALBR #### [facility] [address] [place] [address] Dr. Mitehs AnthonyPROF 14(COMP METB)on 23-72-5180Pdpxaqm [Mass/Vol]4.1 g/dLNormal 3.4-5.0The [facility] HospitalComment on above:Performed By: #### TSHRFT4, CMP #### [facility] [address] [place] [address] Dr. Mitesh AnthonyAlbumin/Globulin [Mass ratio]1.1 {ratio}NormalThe [facility] HospitalComment on above:Performed By: #### TSHRFT4, CMP #### [facility] [address] [place] [address] Dr. Mitesh Velarde [Catalytic activity/Vol]89 U/RBetvnf26-646Cfu [facility] HospitalComment on above:Performed By: #### TSHRFT4, CMP #### [facility] [address] [place] [address] Dr. Mitesh Alberto [Catalytic activity/Vol]26 U/WDjoimy88-38Pxp [facility] HospitalComment on above:Performed By: #### TSHRFT4, CMP #### [facility] [address] [place] [address] Dr. Mitesh Good gap [Moles/Vol]11.3 mmol/LNormalThe [facility] on above:Performed By: #### TSHRFT4, CMP #### [facility] [address] [place] [address] Dr. Mitesh Richardson [Catalytic activity/Vol]18 U/EWjusxn73-51Nzp [facility] HospitalComment on above:Performed By: #### TSHRFT4, CMP #### [facility] [address] [place] [address] Dr. Mitesh AnthonyBilirubin [Mass/Vol]0.2 mg/dLNormal0.2-1.0The [facility] Comment on above:Performed By: #### TSHRFT4, CMP #### [facility] [address] [address] [address] Mitesh AnthonyCalcium [Mass/Vol]9.4 mg/dLNormal8.5-10.1The [facility] Comment on above:Performed By: #### TSHRFT4, CMP #### [facility] [address] [address] [address] Mitesh AnthonyChloride [Moles/Vol]106 mmol/OLabaeh18-355Sor [facility] Comment on above:Performed By: #### TSHRFT4, CMP #### [facility] [address] [place] [address] Dr. Mitesh AnthonyCO2 [Moles/Vol]30.3 mmol/MQnegli44.0-32.0[facility] Comment on above:Performed By: #### TSHRFT4, CMP #### [facility] [address] [place] [address] Dr. Mitesh AnthonyCreatinine [Mass/Vol]1.37 mg/dLCritically high0.55-1.02The [facility] HospitalComment on above:Performed By: #### TSHRFT4, CMP #### [facility] [address] [place] [address] Dr. Sagastume ChangEGFR-AF NTMNCJQB88 mL/min/1.46b2Rkozzputzy low>=60The [facility] HospitalComment on above:Performed By: #### TSHRFT4, CMP #### [facility] [address] [place] [address] Dr. Sagastume ChangEGFR-NON AF VZDJQFFG49 mL/min/1.44i8Ttwuycgeib low>=60The [facility] HospitalComment on above:Performed By: #### TSHRFT4, CMP #### [facility] [address] [place] [address] Dr. Mitesh AnthonyGlobulin (S) [Mass/Vol]3.6 g/dLNormalThe [facility] HospitalComment on above:Performed By: #### TSHRFT4, CMP #### [facility] [address] [address] [address] Mitesh AnthonyGlucose [Mass/Vol]97 mg/aHBdlvgp65-403UlpTrihealth Comment on above:Performed By: #### TSHRFT4, CMP #### [facility] [address] [place] [address] Dr. Mitesh AnthonyPotassium [Moles/Vol]3.6 mmol/LNormal3.5-5.1The [facility] Comment on above:Performed By: #### TSHRFT4, CMP #### [facility] [address] [place] [address] Dr. Mitesh AnthonyProtein [Mass/Vol]7.7 g/dLNormal6.4-8.2[facility] Comment on above:Performed By: #### TSHRFT4, CMP #### [facility] [address] [place] [address] Dr. Mitesh AnthonySodium [Moles/Vol]144 mmol/PNajadi108-746VmiTrihealth Comment on above:Performed By: #### TSHRFT4, CMP #### [facility] [address] [place] [address] Dr. Mitesh AnthonyUrea nitrogen [Mass/Vol]29.0 mg/dLCritically high7.0-18.0TrihealthComment on above:Performed By: #### TSHRFT4, CMP #### [facility] [address] [place] [address] Dr. Mitesh Branch nitrogen/Creatinine [Mass ratio]21.2 mg/mgNormalThe [facility] HospitalComment on above:Performed By: #### TSHRFT4, CMP #### [facility] [address] [place] [address] Dr. Mitesh Lloyd W/ REFLEX TO FT4on 04-51-5638MWK9.449 uIU/mLNormal0.358-3.740 TrihealthComment on above:Performed By: #### LIPID, CMP #### [facility] [address] [address] [address] Mitesh [facility]ST[facility]G PATH SLIDE REVIEWon 10-74-8745FJWZ REPORTNormal [facility] on above:Order Comment: Specimen Type: SLIDE Ordering Facility: [facility] Outside Review Address: , ,Result Comment: Surgical Pathology Report Case: [id number] Authorizing Provider: Kaden Golden MD Collected: 08/07/2022 09:12 AM Ordering Location: [facility] Received: 08/07/2022 09:15 AM Pathologist: Albaro Murguia MD Specimen: SLIDE(S), 18 SLIDES, [id number] By: #### [id number] #### [facility] CLIA [id number] [address] [place] [address] [place] OF AMERICACLINICAL HISTORYPrior core biopsy diagnosis of ADH.NormalMain Campus Medical Center on above:Order Comment: Specimen Type: SLIDE Ordering Facility: [facility] Review Address: , ,Performed By: #### [id number] #### [facility] CLIA [id number] [address] [place] [address] [place] OF AMERICADIAGNOSIS COMMENTNormal [facility] on above:Order Comment: Specimen Type: SLIDE Ordering Facility: [facility] Review Address: , ,Result Comment: The overall degree of atypia falls short of an unequivocal diagnosis of ductal carcinoma in-situ (DCIS).Performed By: #### [id number] #### [facility] CLIA [id number] [address] [place] [address] [place] OF AMERICAFINAL DIAGNOSISNormal [facility] on above:Order Comment: Specimen Type: SLIDE Ordering Facility: [facility] Review Address: , ,Result Comment: Breast, left, at 3:00, excisional biopsy ([id number]; 07/12/2022): ---Atypical intraductal proliferation predominantly involving a fibroadenomatoid nodule. ---Background breast with previous biopsy site. ---Please see comment. Performed By: #### [id number] #### [facility] CLIA [id number] [address] [place], [place] [address]FINVA PERFORMING LABNormal [facility] Pointe Hospitalment on above:Order Comment: Specimen Type: SLIDE Ordering Facility: Outside Review Address: , ,Result Comment: Diagnostic interpretation performed at [facility], [address] [place], [place] [id number] CLIA# [id number] Field Worker: Akshat Nguyen M.D.Performed By: #### [id number] #### [facility] CLIA [id number] [address] [place] [address] AMERICAConsultation Noteon 26-24-0277Efqksazzssxn [id number]#1.00CD:127 [facility] CampusCNOVSPon 59-75-8217AFQXCDGwafg (SP) Office (HEMASA) Humaira POLOLINDSEY ([id number]) 1970 F Date Time Provider Department 08/02/22 3:30 PM KADEN GOLDEN During your visit today, we recorded the following information about you: Temperature Pulse Respiration Blood pressure 97.5 degrees 74/minute 16/minute 136/85 Weight Height 32.2 kg 1.321 m Kaden Golden MD 08/02/2022 4:01 PM Signed PATIENT NAME: Lindsey Kelleychristine CLINIC NO.: [id number] ATTENDING PHYSICIAN: Kaden Golden MD DATE OF [...] old year old (more content not included)... NormalRegency Hospital ToledoCNPNon 61-64-2986EXLJDvwctzsal (NCCAP) LINDSEY POLO ([id number]) 1970 F Date Time Provider Department 08/02/22 KADEN GOLDEN NCCAP During your visit today, we recorded the following information about you: Luis Enrique Szymanski 08/02/2022 3:50 PM Signed Request sent to [facility] General pathology to send to [facility] [...] Encounter Status:Closed by LUIS ENRIQUE SZYMANSKI on 08/02/22NoThe University of Toledo Medical CenterAmbulatory Visit Summaryon [id number] Visit Summary LINDSEY POLO :1970 Visit Date:07/21/2022 [...] (0.025 mg) Tab) potassium chloride (Potassium Chloride (Zgz-Zcok-Qnf M20) 20 mEq oral tablet, extended release) Procedures Performed Lumpectomy of left breast (07/12/2022), Colonoscopy, Core needle biopsy of breast. What to do next Someone Will Contact You Regarding These Appointments [facility] External Ambulatory Referral, Geographic proximity, Oncology, [facility], or [facility], [facility], 07/21/22 13:48:00 EST, Ductal carcinoma in [...] Every day Unchanged potassium chloride (Potassium Chloride (Ysw-Xlcx-Pdn M20) 20 mEq oral tablet, extended release) [...] are no longer receiving treatment for. Hypokalemia [facility] Surgery Office/Clinic Noteon 27-72-8632Dsaijpc Surgery Office/Clinic NoteChief Complaint post operative follow [...] estrogen receptor modulator; call with problems/questions. Ordered: [facility] External Ambulatory Referral 2. Fibroadenoma of left [...] mcg= 1 tab(s), Oral, Daily Potassium Chloride (Clr-Ykyz-Rid M20) 20 mEq oral tablet, extended release, [...] mRNA BNT-162b2 vax 09/11/2020 Recorded 2022-06-20: TPV40 [facility] CampusComment on above:Result Comment: Electronically Signed By: TEODORO MALIK, Christopher Ragland\Date and Time Signed: 07/21/22 15:46 ESTRAD - Ultrasound Reporton 12-17-2445DOQ - Ultrasound Report [id number]#1.00CD:127NormMercy Health St. Charles HospitalUS GUIDE LOCAL BREAST LTon 48-81-5012CB GUIDE LOCAL BREAST LT Begin Addendum #1 COLLECTED DATE/TIME: 07/12/2022 12:00 EST Final Diagnosis Report for [facility] [place] LEFT BREAST MASS 3 O'CLOCK POSITION; [...] None. IMPRESSION: 1. Technically successful hookwire localization.NormalThe [facility] Pathology Noteon 85-69-9815Wivkjzdvz Note [id number]#1.00CD:[address] [place], [place] [address]Operative Reporton 70-41-5136Srybcwlce Report [id number]#1.00CD:[address] [place], [place] [address]RAD - Ultrasound Reporton 11-94-4177MAD - Ultrasound Report [id number]#1.00CD:127[facility] CampusUS BREAST SPECIMENon 99-66-7681LX BREAST SPECIMENEXAM: US BREAST SPECIMEN HISTORY: Infiltrating duct carcinoma of breast COMPARISON: Ultrasound breast biopsy 06/05/2022, ultrasound-guided wire localization 07/12/2022 TECHNIQUE: Ultrasound evaluation of surgical specimen. FINDINGS: Biopsy marker clip is present within the small soft tissue specimen. IMPRESSION: 1. Biopsy marker clip is present within the surgical specimen. Electronically authenticated by: SHANI THOMAS Date: 2022-07-12 13:51[facility] HospitalECG 12-Leadon 97-89-5748KFX 12-Lead [id number]#1.00CD:127[facility] CampusLab Reportson 75-55-4902Swl Reports [id number]#1.00CD:[address] [place], [place] [address]PROF CHEM 8 (BAS METB)on 55-92-2586Vsmfr gap [Moles/Vol]13.7 mmol/LNormal The [facility] HospitalComment on above:Performed By: #### BMP #### [facility] [address] [address] [address] Mitesh AnthonyCalcium [Mass/Vol]9.6 mg/dLNormal8.5-10.1The [facility] Comment on above:Performed By: #### BMP #### [facility] [address] [address] [address] Mitesh AnthonyChloride [Moles/Vol]108 mmol/LCritically ejtv13-487Diz [facility] HospitalComment on above:Performed By: #### BMP #### [facility] [address] [address] [address] Mitesh AnthonyCO2 [Moles/Vol]27.5 mmol/LUmagrw55.0-32.0The [facility] Comment on above:Performed By: #### BMP #### [facility] [address] [place] [address] Dr. Mitesh AnthonyCreatinine [Mass/Vol]1.36 mg/dLCritically high0.55-1.02The [facility] HospitalComment on above:Performed By: #### BMP #### [facility] [address] [place] [address] Dr. Mitesh DuranGFR-AF OVKWWRRQ70 mL/min/1.65x5Fbywpbwjrt low>=60The [facility] HospitalComment on above:Performed By: #### BMP #### [facility] [address] [place] [address] Dr. Mitesh DuranGFR-NON AF EUITHQUX50 mL/min/1.68q3Ymjqcxlihv low>=60The [facility] HospitalComment on above:Performed By: #### BMP #### [facility] [address] [address] [address] Mitesh AnthonyGlucose [Mass/Vol]132 mg/dLCritically epxw52-241Ajj [facility] HospitalComment on above:Performed By: #### BMP #### [facility] [address] [address] [address] Mitesh AnthonyPotassium [Moles/Vol]4.2 mmol/LNormal3.5-5.1[facility] Comment on above:Performed By: #### BMP #### [facility] [address] [address] [address] Mitesh Herreraum [Moles/Vol]145 mmol/QBeyzfh009-999Tue [facility] Comment on above:Performed By: #### BMP #### [facility] [address] [address] [address] Mitesh Branch nitrogen [Mass/Vol]32.0 mg/dLCritically high7.0-18.0TrihealthComment on above:Performed By: #### BMP #### [facility] [address] [address] [address] Mitesh Branch nitrogen/Creatinine [Mass ratio]23.5 mg/mgNoalThOhioHealth Shelby HospitalComment on above:Performed By: #### BMP #### [facility] [address] [address] [address] Mitesh Julio for Procedure/Surgeryon 85-37-7458Blmikcu for Procedure/[id number]#1.00CD:[address] [place], [place] [address]Outside Mammographyon 50-69-1685Wahiffq Mammography [id number]#1.00CD:[address] [place], [place] [address]Outside [id number]#1.00CD:[address] [place], [place] [address]Pathology Noteon 54-84-8271Yjtvgilzo Note [id number]#1.00CD:[address] [place], [place] [address]RAD - Ultrasound Reporton 24-51-5618LDA - Ultrasound Report [id number]#1.00CD:[address] [place], [place] [address]US VAC ASST BX BREAST LT W CLIPon 96-30-2240LS VAC ASST BX BREAST LT W CLIP Begin Addendum #1 COLLECTED DATE/TIME: 06/05/2022 14:29 EST Final Diagnosis Report for [facility], [place], [place] LEFT BREAST 2 O'CLOCK MASS, ULTRASOUND-GUIDED [...] be provided after pathology results are available.NormalThe [facility] HospitalMAMMO POST BIOPSY LEFTon 06-55-7886CCHAE POST BIOPSY LEFTPatient: LINDSEY POLO Exam Date: 06/05/2022 : 1970 Gender:F Ordering : DR JANIE TOSCANO . Admission #: [id number] Family : Order #: [id number] CLICK HERE TO VIEW EXAM RADIOLOGY REPORT [...] by: Shani Thomas M.D. on 06/05/2022 at 15:59[facility] HospitalMG MAMM LT DIAG FUon 73-26-5751LP MAMM LT DIAG FUPatient: [facility] Exam Date: 05/18/2022 : 1970 Gender:F Ordering : DR JANIE TOSCANO . Admission #: [id number] Family : Order #: [id number] CLICK HERE TO VIEW EXAM RADIOLOGY REPORT [...] Family Cancers None LOCATION: [facility] BREAST COMPOSITION: Heterogeneously dense,which may obscure [...] by: Shani Thomas M.D. on 05/18/2022 at 14:31[facility] HospitalUS BREAST LEFT LIMITEDon 81-29-0393QR BREAST LEFT LIMITEDPatient: [facility]INDSE[facility] Exam Date: 05/18/2022 : 1970 Gender:F Ordering : DR JANIE TOSCANO . Admission #: [id number] Family : Order #: [id number] CLICK HERE TO VIEW EXAM RADIOLOGY REPORT [...] Family Cancers None LOCATION: [facility] BREAST COMPOSITION: Heterogeneously dense,which may obscure [...] by: Shani Thomas M.D. on 05/18/2022 at 14:31[facility] HospitalGLYCOHEMOGLOBIN A1Con 90-70-9686CPU RECOMMENDATIONSEE BELOWAultman Alliance Community HospitalComment on above:Result Comment: ADA RECOMMENDED LIMIT 4.0 - 6.0 ADA THERAPEUTIC TARGET < 7.0 ACTION SUGGESTED > 7.0Performed By: #### A1C #### [facility] [address] [address] [address] Mitesh AnthonyGlucose [Mass/Vol]143 mg/dLAultman Alliance Community HospitalComment on above:Performed By: #### A1C #### [facility] [address] [address] [address] Mitesh AnthonyHbA1c (Bld) [Mass fraction]6.6 %Critically high4.5-6.2The [facility] HospitalComment on above:Performed By: #### A1C #### [facility] [address] [address] [address] Mitesh HuitronID PROFILEon 59-30-6468FYAB-HDL RATIO NORMSMercy Health Perrysburg HospitalComment on above:Result Comment: 3.3 - 4.4 LOW RISK 4.4 - 7.1 AVERAGE RISK 7.1 - 11.0 MODERATE RISK >11.0 HIGH RISKPerformed By: #### LIPID, CMP #### [facility] [address] [address] [address] Mitesh AnthonyCholesterol [Mass/Vol]234 mg/dLCritically high<=200[facility]Com[facility] on above:Performed By: #### LIPID, CMP #### [facility] [address] [place] [address] Dr. Mitesh AnthonyCholesterol in HDL [Mass/Vol]108 mg/dLCritically ydkx54-02Jxk [facility] HospitalComsouthwest regional rehabilitation center on above:Performed By: #### LIPID, CMP #### [facility] [address] [address] [address] Mitesh AnthonyCholesterol in LDL [Mass/Vol]111.2 mg/dLAultman Alliance Community HospitalComsouthwest regional rehabilitation center on above:Performed By: #### LIPID, CMP #### [facility] [address] [address] [address] Mitesh Bessesterjoselo.total/Cholesterol in HDL [Mass ratio]2.2 {ratio} NormalTrihealthComsouthwest regional rehabilitation center on above:Performed By: #### LIPID, CMP #### [facility] [address] [place] [address] Dr. Mitesh AnthonyHDL NORMAL> or = 60 mg/dl - LOW CARDIOVASCULAR RISK <40 mg/dl - HIGH CARDIOVASCULAR RISKAultman Alliance Community HospitalComsouthwest regional rehabilitation center on above:Performed By: #### LIPID, CMP #### [facility] [address] [place] [address] Dr. Mitesh AnthonyLDL CALC NORMALSEE [facility] HospitalComment on above:Result Comment: <100 mg/dl OPTIMAL 100 - 129 mg/dl NEAR OR ABOVE OPTIMAL 130 - 159 mg/dl BORDERLINE HIGH 160 - 189 mg/dl HIGH >190 mg/dl VERY HIGH Performed By: #### LIPID, CMP #### [facility] [address] [place] [address] Dr. Mitesh AnthonyTriglyceride [Mass/Vol]74 mg/dLNormal<=150The [facility] Comment on above:Performed By: #### LIPID, CMP #### [facility] [address] [place] [address] Dr. Mitesh AnthonyVLDL CALC14.8 mg/dLNormalThe [facility] HospitalComment on above: Performed By: #### LIPID, CMP #### [facility] [address] [place] [address] Dr. Mitesh Diaz 14(COMP METB)on 66-59-6057Fzblhry [Mass/Vol]4.2 g/dLNormal 3.4-5.0The [facility] HospitalComment on above:Performed By: #### LIPID, CMP #### [facility] [address] [place] [address] Dr. Mitesh AnthonyAlbumin/Globulin [Mass ratio]1.2 {ratio}NormalThe [facility] HospitalComment on above:Performed By: #### LIPID, CMP #### [facility] [address] [place] [address] Dr. Mitesh Velarde [Catalytic activity/Vol]114 U/TWmnqzb87-333Fdh [facility] HospitalComment on above:Performed By: #### LIPID, CMP #### [facility] [address] [place] [address] Dr. Mitesh Alberto [Catalytic activity/Vol]39 U/DWilqby66-04Ufk [facility] HospitalComment on above:Performed By: #### LIPID, CMP #### [facility] [address] [place] [address] Dr. Mitesh Good gap [Moles/Vol]12.2 mmol/LNormalThe [facility] Comment on above:Performed By: #### LIPID, CMP #### [facility] [address] [place] [address] Dr. Yilan ChangAST [Catalytic activity/Vol]26 U/YLvoabx37-56Djn [facility] HospitalComment on above:Performed By: #### LIPID, CMP #### [facility] [address] [place] [address] Dr. Mitesh AnthonyBilirubin [Mass/Vol]0.4 mg/dLNormal0.2-1.0The [facility] Comment on above:Performed By: #### LIPID, CMP #### [facility] [address] [place] [address] Dr. Mitesh AnthonyCalcium [Mass/Vol]9.4 mg/dLNormal8.5-10.1The [facility] Comment on above:Performed By: #### LIPID, CMP #### [facility] [address] [place] [address] Dr. Mitesh AnthonyChloride [Moles/Vol]102 mmol/ICvmvxr01-223Fao [facility] Comment on above:Performed By: #### LIPID, CMP #### [facility] [address] [place] [address] Dr. Mitesh AnthonyCO2 [Moles/Vol]29.5 mmol/JXvdxzh20.0-32.0The [facility] Comment on above:Performed By: #### LIPID, CMP #### [facility] [address] [place] [address] Dr. Mitesh AnthonyCreatinine [Mass/Vol]1.29 mg/dLCritically high0.55-1.02The [facility] HospitalComment on above:Performed By: #### LIPID, CMP #### [facility] [address] [place] [address] Dr. Mitesh DuranGFR-AF WPODJQGJ55 mL/min/1.78r2Jhrswlabrj low>=60The [facility] HospitalComment on above:Performed By: #### LIPID, CMP #### [facility] [address] [place] [address] Dr. Mitesh DuranGFR-NON AF KMKFMGIA52 mL/min/1.24i8Slhbxypqqk low>=60The [facility] HospitalComment on above:Performed By: #### LIPID, CMP #### [facility] [address] [address] [address] Mitesh AnthonyGlobulin (S) [Mass/Vol]3.5 g/dLNoThe Christ HospitalComment on above:Performed By: #### LIPID, CMP #### [facility] [address] [address] [address] Mitesh AnthonyGlucose [Mass/Vol]113 mg/dLCritically qbei67-671Fmh [facility] HospitalComment on above:Performed By: #### LIPID, CMP #### [facility] [address] [address] [address] Mitesh AnthonyPotassium [Moles/Vol]3.7 mmol/LNormal3.5-5.1The [facility] Comment on above:Performed By: #### LIPID, CMP #### [facility] [address] [address] [address] Mitesh AnthonyProtein [Mass/Vol]7.7 g/dLNormal6.4-8.2The [facility] Comment on above:Performed By: #### LIPID, CMP #### [facility] [address] [address] [address] Mitesh AnthonySodium [Moles/Vol]140 mmol/QVtmuwt559-590Ubc [facility] Comment on above:Performed By: #### LIPID, CMP #### [facility] [address] [address] [address] Mitesh AnthonyUrea nitrogen [Mass/Vol]23.0 mg/dLCritically high7.0-18.0The [facility] HospitalComment on above:Performed By: #### LIPID, CMP #### [facility] [address] [address] [address] Mitesh AnthonyUrea nitrogen/Creatinine [Mass ratio]17.8 mg/mgNoThe Christ HospitalComment on above:Performed By: #### LIPID, CMP #### [facility] [address] [address] [address] Mitesh AnthonyMG MAMM SCREEN 3D JULIANNA CADon 31-70-4966BS MAMM SCREEN 3D JULIANNA CAD Patient: LINDSEY POLO Exam Date: 04/24/2022 : 1970 Gender:F Ordering : DR JANIE TOSCANO . Admission #: [id number] Family : Order #: [id number] CLICK HERE TO VIEW EXAM RADIOLOGY REPORT PROCEDURE: MAMMOGRAM SCREENING 3D BILATERAL CAD COMPARISON: None. INDICATIONS: Screening mammography Calculator Name NCI Breast Cancer Risk Assessment Tool 5 Year Breast Cancer Risk Not Reported. Lifetime Breast Cancer Risk Not Reported. Personal Breast Cancer No Personal Ovarian Cancer No Treatments None Family Cancers None LOCATION: [facility] BREAST COMPOSITION: Heterogeneously dense,which may obscure [...] by: Shani Thomas M.D. on 04/25/2022 at 13:20[facility] HospitalUS SINGLE QUAD RT UPPERon 61-88-7884PD SINGLE QUAD RT UPPEREXAMINATION: US SINGLE QUAD [...] Electronically authenticated by: SHANI THOMAS Date: 2022-04-24 19:32NoThe Christ HospitalXR DEXA BONE DENSITYon 73-55-9737CE DEXA BONE DENSITY EXAMINATION: XR DEXA BONE [...] Electronically authenticated by: SHANI THOMAS Date: 2022-04-24 16:36NoThe Christ HospitalOutside Colonoscopyon 84-49-0483Fnauzcs Colonoscopy [id number]:127NoSheltering Arms HospitalRemindersaint john's hospital 40-89-4703Vinqqmkyd From: Natacha Perea LPN To: N - Clinical; Sent: 04/13/2022 15:39:57 EST Show up: 03/12/2032 07:00:00 EDT Subject: colonoscopy recall Due Date/Time: 04/12/2032 07:00:00 EST Reminder/Recall Patient is due for screening colonoscopy 04/12/2032.[facility] CampusLab Reportson 72-62-6157Kni Reports [id number]#1.00CD:127[facility] CampusCovid-19 PCR (CVDTBH)on 28-47-0086CSXN-CoV-2 (COVID-19) RNA RITCHIE+probe Ql (Unsp spec)Not detectedNormalNOT DETECTEDThe [facility] HospitalComment on above: Result Comment: This test is not yet approved or cleared by the [place] FDA. When there are no FDA-approved or cleared tests available, and other criteria are met, FDA can make tests available under an emergency access mechanism called an Emergency Use Authorization (EUA). The EUA for this test is supported by the [place] of Health and Human Service's (HHS's) declaration [...] with SARS-CoV-2.Performed By: #### LIPID, CMP #### [facility] [address] [place] [address] Dr. Mitesh AnthonyPre-Certification Formon 04-52-4387Xos-Certification Form [id number]#1.00CD:127[facility] CampusConsent for Procedure/Surgeryon 24-79-1537Fjuqlth for Procedure/Surgery [id number]#1.00CD:127[facility] CampusAmbulatory Visit Summaryon 48-36-8489Vrzssczuko Visit Summary LINDSEY POLO :1970 Visit Date:03/08/2022 Ambulatory Visit Instructions Your Care Team Attending Physician - TEODORO MALIK, Christopher Hernandez Primary Care Physician - BERE, MR. LEONARDO BOSCH This Is Your Medications List Contact prescribing physician if questions or concerns amlodipine (amLODIPine 10 mg Tab) hydrochlorothiazide-lisinopril (hydrochlorothiazide-lisinopril 25 mg-20 mg Tab) levothyroxine (levothyroxine 25 mcg (0.025 mg) Tab) potassium chloride (Potassium Chloride (Bzj-Mjhm-Cjs M20) 20 mEq oral tablet, extended release) [...] or concerns Unchanged potassium chloride (Potassium Chloride (Bmh-Fkis-Saw M20) 20 mEq oral tablet, extended release) [...] are no longer receiving treatment for. Hypokalemia [facility] ACOG PANEL 2: 30 to 65on 03-08-2022..NormalThe [facility] HospitalComment on above:Result Comment: Performed at: WBPerformed By: #### [id number] #### [facility] [address] [place] [address] Dr. Mitesh Jarvis Gdln ACOG Ytgjkze92-75OgvafgBpmOhioHealthComment on above:Performed By: #### [id number] #### [facility] [address] [address] [address] Mitesh AnthonyDIAGNOSIS:CommentOhioHealth Arthur G.[facility], Cancer Center on above: Result Comment: NEGATIVE FOR INTRAEPITHELIAL LESION OR MALIGNANCY. Performed at: WBPerformed By: #### [id number] #### [facility] [address] [address] [address] Mitesh AnthonyHPV AptimaNegativeNormalNegativeThe [facility] HospitalComment on above:Result Comment: This nucleic acid amplification test detects fourteen high-risk HPV types (16,18,31,33,35,39,45,51,52,56,58,59,66,68) without differentiation. Performed at: =GPerformed By: #### [id number] #### [facility] [address] [place] [address] Dr. Mitesh AnthonyMethodology:CommentOhioHealth Arthur G.[facility], Cancer Center on above: Result Comment: This liquid based ThinPrep(R) pap test was screened with the use of an image guided system. Performed at: WBPerformed By: #### [id number] #### [address] [place] [address] Dr[address] Mitesh AnthonyNote:CommentOhioHealth Arthur G.[facility], [facility], Cancer Center on above:Result Comment: The Pap smear is a screening test designed to aid in the detection of premalignant and malignant conditions of the uterine cervix. It is not a diagnostic procedure and should not be used as the sole means of detecting cervical cancer. Both false-positive and false-negative reports do occur. . Performed at: WBPerformed By: #### [id number] #### [address] [address] Dr. Mitesh AnthonyPerformed by:CommentOhioHealth Arthur G.[facility], [facility] on above: Result Comment: Osorio Bishop, Chief Dispatcher (ASCP) Performed at: WBPerformed By: #### [id number] #### [address] [address] Dr. Mitesh AnthonySpecimen adequacy:CommentOhioHealth Arthur G.[facility], [facility] on above:Result Comment: Satisfactory for evaluation. Endocervical and/or squamous metaplastic cells (endocervical component) are present. Performed at: WBPerformed By: #### [id number] #### [facility] [address] [place] [address] Dr. Mitesh AnthonyTHYROID PEROXIDASE ABon 32-42-7176Wfhoxer Peroxidase (TPO) Ab8 IU/mLNormal0-34The [facility] Generalment on above:Performed By: #### TPOAB #### [facility] [address] [place] [address] Dr. Mitesh Mcclain C ANTIBODYon 02-38-6534Zhh C Virus Ab<0.8Rlrlly6.0-0.9 TrihealthComment on above:Result Comment: Negative: < 0.8 Indeterminate: [...] Hepatitis C Virus (HCV) RNA, Diagnosis, RITCHIE ([id number]) and Hepatitis C Virus (HCV) Antibody with reflex to Quantitative Real-time PCR ([id number]).Performed By: #### LIPID, CMP #### [facility] [address] [place] [address] Dr. Mitesh Yangsician Referralon 92-52-8256Ohhaavzmx Referral [id number]#1.00CD:127[facility] CampusCBC AUTO DIFFon 03-78-7836CXMN #0.0 103/ulNormal0.0-0.1TrihealthComment on above:Performed By: #### LIPID, CMP #### [facility] [address] [place] [address] Dr. Mitesh AnthonyBasophils/100 WBC (Bld)0.5 %Normal0.2-2.0[facility] Comment on above:Performed By: #### LIPID, CMP #### [facility] [address] [place] [address] Dr. Mitesh Tamez #0.1 103/ulNormal0.0-0.7The [facility] HospitalComment on above: Performed By: #### LIPID, CMP #### [facility] [address] [place] [address] Dr. Sagastume ChangEosinophils/100 WBC (Bld)2.1 %Normal0.9-7.0[facility] Comment on above:Performed By: #### LIPID, CMP #### [facility] [address] [place] [address] Dr. Mitesh Duranrythrocyte distribution width (RBC) [Ratio]14.4 %Uygbdq39.0-15.0 The [facility] Generalment on above:Performed By: #### LIPID, CMP #### [facility] [address] [place] [address] Dr. Mitesh AnthonyHematocrit (Bld) [Volume fraction]36.1 %Ooctra97.0-48.0The [facility] HospitalComment on above:Performed By: #### LIPID, CMP #### [facility] [address] [place] [address] Dr. Mitesh AnthonyHemoglobin (Bld) [Mass/Vol]11.7 g/dLCritically low12.0-16.0The [facility] Generalment on above:Performed By: #### LIPID, CMP #### [facility] [address] [place] [address] Dr. Mitesh Hawthorne #0.01 10e3/ulNormal0.00-0.03The [facility] HospitalComsouthwest regional rehabilitation center on above:Performed By: #### LIPID, CMP #### [facility] [address] [place] [address] Dr. Mitesh Hawthorne %0.2 %Normal0.0-0.5The [facility] HospitalComment on above: Performed By: #### LIPID, CMP #### [facility] [address] [place] [address] Dr. Mitesh Mckeon #1.7 103/ulNormal1.2-3.8The [facility] HospitalComsouthwest regional rehabilitation center on above:Performed By: #### LIPID, CMP #### [facility] [address] [place] [address] Dr. Mitesh Marinhocytes/100 WBC (Bld)29.1 %Xpvney36.5-60.0The [facility] Generalment on above:Performed By: #### LIPID, CMP #### [facility] [address] [place] [address] Dr. Mitesh FraustoUAL DIFF REQNONormalThe [facility] HospitalComment on above: Performed By: #### LIPID, CMP #### [facility] [address] [place] [address] Dr. Mitesh Daigle (RBC) [Entitic mass]30.5 sxLklsge43.7-34.0The [facility] HospitalComment on above:Performed By: #### LIPID, CMP #### [facility] [address] [place] [address] Dr. Mitesh Daigle (RBC) [Mass/Vol]32.4 g/mXUbctri69.9-35.2The [facility] HospitalComment on above:Performed By: #### LIPID, CMP #### [facility] [address] [place] [address] Dr. Mitesh Hackett (RBC) [Entitic vol]94.0 wSPodqmg07.0-99.0The [facility] HospitalComment on above:Performed By: #### LIPID, CMP #### [facility] [address] [place] [address] Dr. Mitesh Almanza #0.5 103/ulNormal0.3-0.8The [facility] HospitalComment on above:Performed By: #### LIPID, CMP #### [facility] [address] [place] [address] Dr. Mitesh Valentinoocytes/100 WBC (Bld)8.0 %Normal1.7-12.0The [facility] Comment on above:Performed By: #### LIPID, CMP #### [facility] [address] [place] [address] Dr. Mitesh Mason #3.5 103/ulNormal1.4-6.5The [facility] HospitalComment on above:Performed By: #### LIPID, CMP #### [facility] [address] [place] [address] Dr. Mitesh Damonophils/100 WBC (Bld)60.1 %Likefb16.0-75.0The [facility] HospitalComment on above:Performed By: #### LIPID, CMP #### [facility] [address] [place] [address] Dr. Mitesh AnthonyPlatelet mean volume (Bld) [Entitic vol]9.5 fLNormal9.5-13.5The [facility] HospitalComsouthwest regional rehabilitation center on above:Performed By: #### LIPID, CMP #### [facility] [address] [address] [address] Mitesh AnthonyPLT260 103/nwOsoclx941-296[facility] on above: Performed By: #### LIPID, CMP #### [facility] [facility] [address] [place] [address] Dr. Mitesh AnthonyRBC3.84 106/ulCritically low4.20-5.40The [facility] on above:Performed By: #### LIPID, CMP #### [facility] [address] [place] [address] Dr. Mitesh AnthonyWBC5.8 103/ulNormal4.0-11.0The [facility] on above: Performed By: #### LIPID, CMP #### [facility] [address] [place] [address] Dr. Mitesh AnthonyFREE T4on 54-34-1360Uyfw T4 [Mass/Vol]1.08 ng/dLNormal0.76-1.46 The [facility] on above:Performed By: #### LIPID, CMP #### [facility] [address] [place] [address] Dr. Mitesh AnthonyGLYCOHEMOGLOBIN A1Con 14-45-1666IFP RECOMMENDATIONSEE BELOWNormal The [facility]Com[facility] on above:Result Comment: ADA RECOMMENDED LIMIT 4.0 - 6.0 ADA THERAPEUTIC TARGET < 7.0 ACTION SUGGESTED > 7.0Performed By: #### A1C #### [facility] [address] [place] [address] Dr. Mitesh AnthonyGlucose [Mass/Vol]126 mg/dLNormalThe [facility]Com[facility] on above:Performed By: #### A1C #### [facility] [address] [place] [address] Dr. Mitesh AnthonyHbA1c (Bld) [Mass fraction]6.0 %Normal4.5-6.2The [facility] HospitalComment on above:Performed By: #### A1C #### [facility] [address] [address] [address] Mitesh HuitronID PROFILEon 15-02-6676RHAQ-HDL RATIO NORMSMercy Health Perrysburg HospitalComment on above:Result Comment: 3.3 - 4.4 LOW RISK 4.4 - 7.1 AVERAGE RISK 7.1 - 11.0 MODERATE RISK >11.0 HIGH RISKPerformed By: #### LIPID, CMP #### [facility] [address] [address] [address] Mitesh AnthonyCholesterol [Mass/Vol]233 mg/dLCritically high<=200The [facility] on above:Performed By: #### LIPID, CMP #### [facility] [address] [address] [address] Mitesh AnthonyCholesterol in HDL [Mass/Vol]97 mg/dLCritically eslu27-79Ukf [facility] HospitalComment on above:Performed By: #### LIPID, CMP #### [facility] [address] [address] [address] Mitesh AnthonyCholesterol in LDL [Mass/Vol]113.0 mg/dLAultman Alliance Community HospitalComsouthwest regional rehabilitation center on above:Performed By: #### LIPID, CMP #### [facility] [address] [address] [address] Mitesh Bessesterjoselo.total/Cholesterol in HDL [Mass ratio]2.4 {ratio} NormalThe [facility] HospitalCom[facility] on above:Performed By: #### LIPID, CMP #### [facility] [address] [address] [address] Mitesh AnthonyHDKasi NORMAL> or = 60 mg/dl - LOW CARDIOVASCULAR RISK <40 mg/dl - HIGH CARDIOVASCULAR RISKAultman Alliance Community HospitalComsouthwest regional rehabilitation center on above:Performed By: #### LIPID, CMP #### [facility] [address] [address] [address] Mitesh AnthonyLDL CALC NORMALSEE [facility] HospitalComment on above:Result Comment: <100 mg/dl OPTIMAL 100 - 129 mg/dl NEAR OR ABOVE OPTIMAL 130 - 159 mg/dl BORDERLINE HIGH 160 - 189 mg/dl HIGH >190 mg/dl VERY HIGH Performed By: #### LIPID, CMP #### [facility] [address] [address] [address] Mitesh AnthonyTriglyceride [Mass/Vol]115 mg/dLNormal<=150The [facility] Comment on above:Performed By: #### LIPID, CMP #### [facility] [address] [address] [address] Mitesh AnthonyVLDL CALC23.0 mg/dLNormalThe [facility] HospitalComment on above: Performed By: #### LIPID, CMP #### [facility] [address] [place] [address] Dr. Mitesh AnthonyPROF 14(COMP METB)on 90-68-7328Bpuqoyt [Mass/Vol]4.3 g/dLNormal 3.4-5.0The [facility] HospitalComment on above:Performed By: #### LIPID, CMP #### [facility] [address] [place] [address] Dr. Mitesh AnthonyAlbumin/Globulin [Mass ratio]1.3 {ratio}NormalThe [facility] HospitalComment on above:Performed By: #### LIPID, CMP #### [facility] [address] [place] [address] Dr. Mitesh Velarde [Catalytic activity/Vol]100 U/DWfceyf52-088Ajg [facility] HospitalComment on above:Performed By: #### LIPID, CMP #### [facility] [address] [address] [address] Mitesh Alberto [Catalytic activity/Vol]110 U/LCritically xgcw50-15Kym [facility] HospitalComment on above:Performed By: #### LIPID, CMP #### [facility] [address] [address] [address] Mitesh Good gap [Moles/Vol]12.4 mmol/LNormalThe [facility] Comment on above:Performed By: #### LIPID, CMP #### [facility] [address] [address] [address] Mitesh AnthonyAST [Catalytic activity/Vol]48 U/LCritically lmhh65-44Kal [facility] HospitalComment on above:Performed By: #### LIPID, CMP #### [facility] [address] [address] [address] Mitesh AnthonyBilirubin [Mass/Vol]0.4 mg/dLNormal0.2-1.0The [facility] Comment on above:Performed By: #### LIPID, CMP #### [facility] [address] [address] [address] Mitesh AnthonyCalcium [Mass/Vol]9.3 mg/dLNormal8.5-10.1The [facility] Comment on above:Performed By: #### LIPID, CMP #### [facility] [address] [address] [address] Mitesh AnthonyChloride [Moles/Vol]106 mmol/SIrynab54-221Qwt [facility] Comment on above:Performed By: #### LIPID, CMP #### [facility] [address] [address] [address] Mitesh AnthonyCO2 [Moles/Vol]27.6 mmol/UAwcukt51.0-32.0The [facility] Comment on above:Performed By: #### LIPID, CMP #### [facility] [address] [address] [address] Mitesh AnthonyCreatinine [Mass/Vol]1.23 mg/dLCritically high0.55-1.02The [facility] HospitalComment on above:Performed By: #### LIPID, CMP #### [facility] [address] [address] [address] Mitesh DuranGFR-AF MEJZXJLT80 mL/min/1.60v1Xvmborefhm low>=60The [facility] HospitalComment on above:Performed By: #### LIPID, CMP #### [facility] [address] [address] [address] Mitesh DuranGFR-NON AF JPTUETID56 mL/min/1.77q4Bstfnnuqqf low>=60The [facility] HospitalComment on above:Performed By: #### LIPID, CMP #### [facility] [address] [address] [address] Mitesh AnthonyGlobulin (S) [Mass/Vol]3.3 g/dLNoThe Christ HospitalComment on above:Performed By: #### LIPID, CMP #### [facility] [address] [address] [address] Mitesh AnthonyGlucose [Mass/Vol]97 mg/oOGynpzl08-605XisTrihealth Comment on above:Performed By: #### LIPID, CMP #### [facility] [address] [address] [address] Mitesh AnthonyPotassium [Moles/Vol]4.0 mmol/LNormal3.5-5.1The [facility] Comment on above:Performed By: #### LIPID, CMP #### [facility] [address] [place] [address] Dr. Mitesh AnthonyProtein [Mass/Vol]7.6 g/dLNormal6.4-8.2[facility] Comment on above:Performed By: #### LIPID, CMP #### [facility] [address] [place] [address] Dr. Mitesh AnthonySodium [Moles/Vol]142 mmol/IYqwwnq113-928YziTrihealth Comment on above:Performed By: #### LIPID, CMP #### [facility] [address] [place] [address] Dr. Mitesh AnthonyUrea nitrogen [Mass/Vol]22.0 mg/dLCritically high7.0-18.0The [facility] HospitalComment on above:Performed By: #### LIPID, CMP #### [facility] [address] [place] [address] Dr. Mitesh Branch nitrogen/Creatinine [Mass ratio]17.9 mg/mgNoThe Christ HospitalComment on above:Performed By: #### LIPID, CMP #### [facility] [address] [place] [address] Dr. Mitesh Dove 57-07-4794KZM0.355 uIU/mLNormal0.358-3.740The [facility] HospitalComment on above:Performed By: #### LIPID, CMP #### [facility] [address] [place] [address] [address] Mitesh AnthonyComprehensive metabolic 2000 panelon 19-54-1789Hilnwdn [Mass/Vol] 4.5 g/dL3.2 - 5.2 g/dLOhioHealthALP [Catalytic activity/Vol]75 U/L40 - 150 U/L OhioHealthALT [Catalytic activity/Vol]14 U/L0 - 40 U/LOhioHealthAnion gap [Moles/Vol]16 mmol/L10 - 20 mmol/LOhioHealthAST [Catalytic activity/Vol]17 U/L0 - 45 U/LOhioHealthBilirubin [Mass/Vol]0.3 mg/dL0.0 - 1.3 mg/dLOhioHealthCalcium [Mass/Vol]9.0 mg/dL8.4 - 10.2 mg/dLOhioHealthChloride [Moles/Vol]105 mmol/L98 - 108 mmol/LOhioHealthCreatinine [Mass/Vol]1.16 mg/dLHigh0.40 - 1.10[facility] GFR/1.73 sq M.predicted CKD-EPI (S/P/Bld) [Vol rate/Area]64>=60 mL/min/1.73 m2 OhioHealthGlucose [Mass/Vol]129 mg/wKLlel72 - 99 mg/dLOhioHealthHCO3 [Moles/Vol] 26 mmol/L21 - 32 mmol/LOhioHealthInterpretation and review of laboratory results AbnormalOhioHealthPotassium [Moles/Vol]3.7 mmol/L3.5 - 5.1 mmol/LOhioHealth Protein [Mass/Vol]6.5 g/dL6.0 - 8.0 g/dLOhioHealthSodium [Moles/Vol]143 mmol/L 135 - 145 mmol/LOhioHealthUrea nitrogen [Mass/Vol]20 mg/dL8 - 25 mg/dLOhioHealth Urea nitrogen/Creatinine [Mass ratio]17.2 mg/mgOhioHealthThe eGFR should be used for monitoring renal function only and not for medication dosing.OhioParkview Health Montpelier HospitalV 1/2 Screen (4th Generation)on 18-04-5874GCF 1+2 Ab+HIV1 p24 Ag IA QlNegative NegativeOhioHealthThis assay screens for the presence of HIV-1, HIV-2 antibodies and for the presence of HIV-1 antigen. Test performed using Stuart SAÚL immunoassay wkgahtItieJebsjpYvI0h (Bld) [Mass fraction]on 25-82-6615Pkzrqou glucose Estimated from glycated hemoglobin (Bld) [Mass/Vol]137 mg/fIQhgx34 - 114 mg/dLOhioHealthInterpretation and review of laboratory resultsAbnormalOhioHealthNormal: 4.2% - 5.6% Increased risk for diabetes: 5.7% - 6.4% Diabetes: >= 6.5% Pediatrics: No established reference range Estimated average glucose: 74-114 mg/dLOhioHealthOhioHealthHemoglobin A1con 88-65-1474UiY9j (Bld) [Mass fraction]6.4 %High4.2 - 5.6 %OhioHealthHepatitis C Antibodyon 28-08-9475DTA Ab Ql (S)NegativeNegativeOhioHealthTest performed using Stuart SAÚL immunoassay systemOhioHealthLipid 1996 panelon 30-64-1510Ucpgqedrtce [Mass/Vol]195 mg/dL100 - 199 mg/dLOhioHealthCholesterol in HDL [...] risk: 7.1 Triglyceride [Mass/Vol]62 mg/dL30 - 150 mg/dLMsioHealthNo Panel Informationon 77-37-8407Efyvxzrsrdzidy and review of laboratory resultsNoSelect [facility] <= 0.005 mIU/L Qnon 14-68-4141Okbmklgczydano and review of laboratory resultsNoShel[facility] Qn2.57 m[IU]/[facility] Vital Signs Date TimeVital SignValuePerforming FnitjuqncAbzsqdro19-42-3724 16:11-0400Body mass index (BMI) [Ratio]18 kg/q4JuflpkcldMercy Health St. [facility]10-01-2024 16:11-0400Diastolic blood zzwagcwp79 mm[Hg][facility] 02-26-2024 16:11-0400Systolic blood syoncuoo001 mm[Hg][facility]10-01-2024 16:03-0400Body jouhxd476.[address] [facility]10-01-2024 16:03-0400Body enffmfdadrh96.8 [degF][facility]10-01-2024 16:03-0400Body urlrbc27.[address] [facility] 02-26-2024 16:03-0400Heart ivyf930 /[facility] 02-26-2024 16:03-0400Respiratory rate16 /[facility] 02-26-2024 16:03-3614LoK9% (BldA) [Mass fraction]95 %[facility]06-19-2024 10:24-0400Body budywq200.[address] [facility] 11-14-2023 10:24-0400Body mass index (BMI) [Ratio]16.9 kg/u7AxkubayrqMercy Health St. [facility]06-19-2024 10:24-0400Body dpcrambxrih55.5 [degF][facility]06-19-2024 10:24-0400Body .[address] [facility]06-19-2024 10:24-0400Diastolic blood vwugkahr07 mm[Hg][facility]06-19-2024 10:24-0400Heart fuuc921 /[facility]06-19-2024 10:24-0400Respiratory rate16 /[facility]06-19-2024 10:24-6314AsV2% (BldA) [Mass fraction]99 %[facility]06-19-2024 10:24-0400Systolic blood rqbrapcd915 mm[Hg] [facility]09-19-2023 15:20-0400Body xsailn100.78 cmAjordanlaurie Krishna Other [employer] Other 09-19-2023 15:20-0400Body mass index (BMI) [Ratio] 16.27 kg/m2Corazon Linkstefani Other [employer] Other 09-19-2023 15:20-0400Body exiemehquke56.4 [degF]Corazon Farmerlaurastefani Other [employer] Other 09-19-2023 15:20-0400Body bygpuw89.11 kgEnocrich Krishna Other [employer] Other 09-19-2023 15:20-0400Diastolic blood pcxgrerz531 mm[Hg]Enocrich Linkstefani Other [employer] Other 09-19-2023 15:20-0400Respiratory rate16 /minCorazon Krishna Other [employer] Other 09-19-2023 15:20-4052UxE3% (BldA) [Mass fraction]99 % Corazon Krishna Other [employer] Other 09-19-2023 15:20-0400Systolic blood aqymdbyg026 mm[Hg] Corazon Krishna Other [employer] Other 591552-81-2933 15:14-0500Body qupyim484.1 cmKaden Golden MD Work Phone: [facility]03-08-2023 15:14-0500Body temperature 97.5 [degF]Kaden Golden MD Work Phone: [facility]03-08-2023 15:14-0500Body sqawrv84.2 kgKaden Golden MD Work Phone: [facility]03-08-2023 15:14-0500Diastolic blood njnrcivh16 mm[Hg]Kaden Golden MD Work Phone: [facility]03-08-2023 15:14-0500Heart rate74 /min Kaden Golden MD Work Phone: [facility]03-08-2023 15:14-0500Respiratory rate 16 /minKaden Golden MD Work Phone: [facility]03-08-2023 15:14-5654PzS7% (BldA) [Mass fraction]93 %Kaden Golden MD Work Phone: [facility]03-08-2023 15:14-0500Systolic blood mm[Hg]Kaden Golden MD Work Phone: [facility]01-24-2023 14:28-0500Blood Pressure LocationMichael NILL [facility] Lshgoqxe54-37-5801 14:28-0500Diastolic blood ppbzvmdu61 mm[Hg]Christopher NILL [facility]01-24-2023 14:28-0500Heart rate 70 /minMichael NILL [facility]01-24-2023 14:28-0500 Respiratory rate16 /minMichael NILL General Surgery Qmlgmukm67-98-3514 14:28-0500Systolic blood facwvqgd208 mm[Hg]Christopher LANDERSL General Surgery Nmtouect72-54-6865 11:52-0400Diastolic blood mm[Hg]Radha Sierra MD Work Phone: [phone]) [phone]ipdqp30-30-0972 11:52-0400Systolic blood pressure 162 mm[Hg]Radha Sierra MD Work Phone: [phone]wkvqj63-63-0406 10:58-0400Body uwbcud655.1 [facility] Rigo MALIK Work Phone: [phone]) [phone]gdncu11-98-5578 10:58-0400Body mass index (BMI) [Ratio]16.02 kg/m2Radha Sierra MD Work Phone: [phone]) [phone]jfhzz20-27-4907 10:58-0400Body neshatprwbm16.49 [degF]Radha Sierra MD Work Phone: [phone]) [phone]bcmhw13-94-0155 10:58-0400Body zlwdoh56.94 kgJbth Rigo MALIK Work Phone: [phone]disqa51-90-5587 10:58-0400Heart zgqj527 /minRadha Sierra MD Work Phone: [phone]) [phone]mrnwk21-33-1377 10:58-0400Respiratory rate16 /min Radha Sierra MD Work Phone: [phone]) [phone]anvto44-17-2222 10:58-4677BdC3% (BldA) [Mass fraction]99 %Radha Sierra MD Work Phone: [phone]tbcwx13-37-4123 09:17-0500BP Tdkurispi32 mm[Hg] Suraj JjpczpNihrFwnewl48-42-1987 09:17-0500BP Isensahh238 mm[Hg]Suraj Addison HykpTrhtox02-91-1686 09:07-0500BMI (Body Mass Index)16.12 kg/u6OfcdaSuraj Addison WfadYhsgqg84-61-6634 09:07-0500Body Bhoteysuaco95.59 [degF]Suraj Addison SaaeZmbyor62-03-0390 09:070500Body .67 kgSuraj [facility] 04-04-2019 09:07-4912Olzqzx919.4 cmBadavian FhwqvfCzdzUzbhng42-07-9815 09:07-0500 Pulse (Heart Rate)95 /minSuraj FernandezYijllnZxjbEuqjit94-12-5395 09:07-0500Pulse Icvsbkbg98 %Suraj FernandezMgbwhlNxlqFtcglv79-09-5934 09:02-0400BMI (Body Mass Index) 17.09 kg/r6Dqdqoukn UptseiXskqHempap41-57-2579 09:02-0400Body Kitejxhsnkp34.81 [degF]Nahum OmzhmyLkhmKumhpt62-96-2843 09:02-0400BP Zmfzwfaiw68 mm[Hg] Nahum ZadbrpKqstGqwgxt60-69-2582 09:02-0400BP Lcabfajq104 mm[Hg]Nahum AfjnmfSasoJpkbkp90-20-1395 09:02-1381Vnozbj971.4 cmCselect specialty hospitalalexandre [facility] 09-17-2018 09:02-0400Pulse (Heart Rate)109 /minCarol[facility] 09-17-2018 09:02-0400Pulse Drwvfxsx49 %Nahum JintgpXpgrXlwnof39-62-7878 09:02-5547Njlmgk92.39 kgNahum ClhxaxGmlzPwcnsq30-55-9832 08:19-0400BMI (Body Mass Index)16.94 kg/o8Ifbpe NagdzgkzBoznHjuioz30-53-9440 08:19-9234Ngrrpm592.4 cmRenestormy KytohcmzGnrzXfroiy66-33-9808 08:19-8997Hbtnqx53.12 kgNini Pelletier RvvvGizyle12-52-7218 11:10-0400BP Xyyrvntfp681 mm[Hg]Nini [facility] 08-28-2017 11:10-0400BP Npgrbzim196 mm[Hg]Nini PelletierLnuqisolEnosDaigav79-69-1390 09:59-0400BMI (Body Mass Index)16.33 kg/d7JqnlkNini PelletierYiklnphcUbwiSaqnby35-53-0609 09:59-1520Kgqebs338.4 Linda PelletierCkvjzzvfCxceMijxgh79-83-9177 09:59-2320Chdnes19.03 kgNini PelletierYtrjcqleRqxlPlxkgd11-95-6369 10:39-0400BMI (Body Mass Index)16.53 kg/m2 Nini EgvmqctwDyilOnmohd28-50-8739 10:39-4346Axxqjc112.4 Linda Pelletier XsmlBiyctt72-42-6938 10:39-5142Kxohut57.39 Fede YojfctqdRyikIhgjmk75-30-5992 10:19-0500BP Lwezkqlok38 mm[Hg]Nini HhmlajjwPkphYwkscs01-22-0226 10:19-0500BP Nuohtzeb945 mm[Hg][facility] CenterGvwxmuioOrgxZnudyz34-28-0834 10:19-0500Pulse (Heart Rate)107 /minAspirus Iron River Hospitalstormy CwjfajrzHsnhVkntts83-31-5527 09:04-0500BMI (Body Mass Index) 15.82 kg/d5Hvqau DrphabxeCshaNbtzao45-11-4953 09:04-0500Body Djvwupjsukm24.8 [degF]Nini PupriitlCshmPyffzg34-17-9470 09:04-2504Lzjepg350.4 Linda Pelletier KlneEbjyym39-86-7607 09:04-0500Pulse Nihwvxlm64 %[facility] 07-31-2017 09:04-7671Syoxvd20.12 unrulyAspirus Iron River Hospitalstormy [facility] Encounters Encounter DateEncounter TypeCare ProviderFacilityStart: 02-26-2024 End: 59-13-6513tilvhbmrknKxwhkialaLima Memorial Hospital Work Phone: Start: 02-26-2024 End: 30-82-3904Bxcgrti encounter procedureNov[facility] Nephrology Ed Work Phone: Start: 01-22-2024 End: 55-62-4413dvprdbarfwKRJEGHV T BROBANNER GOLDFIELD MEDICAL CENTERANTMercy Health Lorain Hospitaltart: 01-20-2024 End: 25-39-0730Vzsogzaoto and management of inpatientDARWINIAN Francisco JONAGEDelaware County Hospitaltart: 01-20-2024 End: 02-99-7561Knrcwllkb department patient visitSROBERTA DANIELSDeniseCHI St. Luke's Health [facility] Vintage Hospitaltart: 11-14-2023 End: 84-72-9717aguqpukferVvrjpfmruLima Memorial Hospital Work Phone: Start: 11-14-2023 End: 42-09-1278Fazhrft encounter procedureNovant Health [facility] Nephrology Ed Work Phone: Start: 82-40-4164Edw-patient / Non-visitNovant Health [facility] Work Phone: Start: 03-01-2023 End: 33-63-9749mxstovmiqfYivn Baklauras Other [employer] Other Start: 49-87-2955Wytmxxbqy encounterAziz BaklaurasFPG NephrologyStart: 02-13-2023 End: 17-41-5823udpoclgvfzOicl Bakhous Other [employer] Other Start: 37-61-7911Dricqd outpatient new 30 minutesAziz BaklaurasFPG Nephrology ClydeStart: 08-17-2022 End: 52-43-1969lrbibrsgrlPIBGX SHAMMOFacility:K9Bkkey: 08-02-2022 End: 09-58-9906elbsripuodEYMIJ MARÍALOUFacility:[facility] Hospitaltart: 08-02-2022 End: 95-72-6631jhvqpssgmcVisrlIbrahima Golden MD Work Phone: Hematology/OncologyComment on above:Atypical ductal hyperplasia of left breast (Primary Dx); Encounter for screening mammogram for malignant neoplasm of breastStart: 08-02-2022 End: 72-95-7895Rwxkmbp encounter procedureKaden Golden MD Work Phone: SANDUSKYStart: 07-21-2022 End: 41-41-9736qcrkljokvxIWHVF SHAMMOFacility:[facility] Hospitaltart: 07-21-2022 End: 86-27-9930Kkmaimo encounter procedureMichael R NILL General Surgery Nill/Said Misbah Start: 80-28-6343SraiuxFdgyJonh Sierra MD Work Phone: [facility] PhysiciansComment on above:HTN Start: 07-12-2022 End: 11-36-5922kdwvraenoqWREBR SHAMMOFacility:CD:[id number]: 07-05-2022 Encounter for preprocedural cardiovascular examinationDR CHRISTOPHER VALERIO .[facility]: 44-18-4031Rzebhnhon for preprocedural laboratory examinationDR CHRISTOPHER VALERIO .[facility]: 07-04-2022 End: 73-84-8864hbkoevywnqWS CHRISTOPHER VALERIO .Facility:U4Jdgqb: 07-04-2022 End: 10-83-1596Jihuoabcx for preprocedural laboratory examinationDR CHRISTOPHER VALERIO .Facility:L3Lmpdf: 06-20-2022 End: 31-33-7995bxndxfrzarWDEWH SHAMMOFacility:[facility] Hospitaltart: 06-20-2022 End: 16-15-2957Sexfjwz encounter procedureMichael R NILL General Surgery Nill/Said [place] Start: 06-05-2022 End: 37-97-0029laniljpradFXGLU SHAMMOFacility:J7Ruqxi: 05-18-2022 End: 78-73-0006bhmemwkqzaHDRYZ SHAMMOFacility:B0Wdvkd: 05-16-2022 End: 15-39-1435cpkowbizicNZTPQ SHAMMOFacility:B9Cfcau: 04-24-2022 End: 75-40-4312nwhmnqrjemZG JANIE TOSCANO .Facility:U0Qghmy: 04-12-2022 End: 92-05-0155wtgyuthvvbGTAXT SHAMMOFacility:CD:[id number]: 04-08-2022 End: 05-80-3639elrcvhyooePP CHRISTOPHER VALERIO .Facility:M8Wlutv: 03-08-2022 End: 61-15-7362wzgqwfxejeUOMFC SHAMMOFacility: BellevueStart: 32-14-8225Adnkzsmattie Sierra MD Work Phone: MsPatientFocusCommunity Memorial Hospital Primary Care PhysiciansComment on above: Acquired hypothyroidismStart: 03-01-2022 End: 15-24-5638ucojrmafmzQV JANIE TOSCANO .Facility:Y2Ejqhv: 03-01-2022 ambulatoryLUCAS SHAMMOFacility: BellevueStart: 70-40-1486abqemlcqulDHUSL SHAMMOFacility: NorwalkStart: 02-16-2022 End: 54-61-4201enrdtgvnrlAZ DOCTOR MISCFacility:E2Tqcid: 09-22-2021 End: 27-90-6401saezxdcncgIRWCRADHA [facility] HospitalStart: 09-22-2021 End: 98-10-7588Nzlanl outpatient visit 25 [facility] hospitalRadha Sierra MD Work Phone: MsPatientFocusCommunity [facility] Primary Care PhysiciansComment on above:HTN (Primary Dx); Acquired hypothyroidism; Hyperlipidemia, unspecified hyperlipidemia type; Colon cancer screening; Encounter for screening for malignant neoplasm of breast, unspecified screening modality; Healthcare maintenance; Sinus tachycardia, chronic; Elevated serum creatinine; Prediabetes; Hypertension, benignStart: 04-30-2020 End: 37-71-6551Inbtnga encounter procedureCARVilant Systems Ambulatory Start: 07-84-8388Amriija encounter procedureCARVilant Systems AmbulatoryStart: 10-01-2019 End: 63-04-3348Ounsbhj encounter procedureCAR[facility] Start: 09-25-2019 End: 86-95-1373Gzjptaq encounter procedureCARV[facility] Start: 40-84-4359Zeuoopz encounter [facility]CARMer[facility]ulatoryStart: 04-04-2019 End: 67-42-2036Ikysdbo encounter Uma Addison Work Phone: [facility] Primary Care PhysiciansComment on above: Well adult exam (Primary Dx); HTN; Acquired hypothyroidism; Hyperlipidemia, unspecified hyperlipidemia type; Unexplained weight loss; Screening for malignant neoplasm of breast; Hearing loss, unspecified hearing loss type, unspecified laterality; Family history of diabetes mellitusStart: 09-17-2018 End: 37-95-6950Jfheem outpatient visit 15 [facility]Ar[facility] Work Phone: [facility] Primary Care PhysiciansComment on above: Bilateral hearing loss, unspecified hearing loss type (Primary Dx); Intellectual disability (CORBIN Polo, ); Short statureStart: 09-26-2017 End: 20-71-3177Qoqeup/outpatient visit, est, level 4Renea Pelletier Work Phone: [facility] Care PhysiciansStart: 08-28-2017 Office/outpatient visit, est, level 3Renea Pelletier Work Phone: [facility] Care PhysiciansStart: 08-14-2017 Office/outpatient visit, est, level 3Renea Pelletier Work Phone: [facility] PhysiciansStart: 07-31-2017 Office/outpatient visit, est, level 3Renea Pelletier Work Phone: [facility] PhysiciansStart: 06-15-2011 End: 24-21-8654Kxabwwm encounter Marley Sierra MD Work Phone: [facility] Work Phone: Procedures DateProcedureProcedure DetailPerforming ClinicianStart: 56-63-0881Csvqsnkyfg of left breastMichael NILL Start: 03-74-3068Hdmfd depression screening assessment Radha Sierra MD Work Phone: Start: 35-53-6633Pumvt depression screening assessment Suraj JalaliStart: 25-68-4717Meewe depression screening assessmentCaroline RicheyColonoscopyMichael NILL Core needle biopsy of breastMichael NILL Plan of Treatment DateCare ActivityDetailAuthorStart: 07-41-7456Graigho vaccinationOhioHealth Start: 50-77-1021Apewiuidfl screening using PHQ-9 (Patient Health Questionnaire 9) scoreDepression Screening (PHQ-2/9)[facility] HospitalStart: 93-23-2742IQXDWDTGRI ASSESSMENTDEPRESSION ASSESSMENTMansfield Hospitaltart: 42-39-1462Xavueufwl vaccinationOhioHealthStart: 10-07-2021 End: 62-73-4129Xzslvgz encounter tuayhfkfw39/13/2022 Office Visit Primary Care Radha Sierra MD [address] [place], [place] [id number] [facility]iciansStart: 03-04-2021 COVID-19 Vaccine (3 - Booster for Pfizer series)COVID-19 Vaccine (3 - Booster for Pfizer series)[facility]HealthStart: 13-46-9284BAKJQ-19 Vaccine (3 - Booster for Pfizer series)COVID-19 Vaccine (3 - Booster for Pfizer series)[facility]HealthStart: 13-10-9447Chnyzfb and physical examination, annual for health maintenance Wellness VisitOhioHealthStart: 06-50-9865Vqcdwuatgr screening using PHQ-9 (Patient Health Questionnaire 9) scoreDEPRESSION SCREENING (PHQ9)[facility] Start: 07-24-1097Nxujiozrd for substance abuseSUBSTANCE ABUSE SCREENING (AUDIT-C)[facility]HealthStart: 05-05-2019 End: 41-63-9974Aleodp Visit05/05/2019 Office Visit Primary Care Nahum Reaves, ARM[address] [place] [address] [phone] [facility] PhysiciansStart: 10-01-2018 End: 62-43-8782Ttgzpo Visit10/01/2018 Office Visit Primary Care Nahum Reaves CNP [address] [facility] [place] [address] [phone] [facility]iciansStart: 03-29-2018 End: 75-61-9724Uthuhgveid03/02/2018 Office Visit Primary Care Nini Pelletier CNP [address] [place] [address] [phone] [facility]iciansStart: 73-80-4808Gejzpehui vaccination givenSEQUENTIAL INFLUENZA VACCINE (#1)[facility]: 09-25-2017 Tgyrajjdho07/01/2018 Office Visit Primary Care Nini Pelletier CNP [address] [place] [address] [phone] [facility] PhysiciansStart: 90-10-1133POFYVLJPW (FIT-DNA)COLOGUARD (FIT-DNA)[facility]: 62-32-7969OeubtmeuwztJTXCVURRYRTYkzyisgcu Clinic Start: 47-65-4205GUADWQTNXQ CANCER SCREENINGCOLORECTAL CANCER SCREENINGMansfield Hospitaltart: 06-41-3683JI COLONOGRAPHYCT COLONOGRAPHYMansfield Hospitaltart: 09-63-5148KCQMDRJK SCREENDIABETES SCREENMansfield Hospitaltart: 22-76-1653SHGHW OCCULT BLOODFECAL OCCULT BLOODMansfield Hospitaltart: 91-37-0244DZFUF SCREENLIPID SCREENMansfield Hospitaltart: 64-85-8448AXSHNZRWZQRTVMHNUGURNLRXNTCvikupzpb ClinicStart: 72-20-8251Eodhxsstrq12/03/2018 Office Visit Primary Care Nini Pelletier CNP [address] [place] [address] [phone] [facility]iciansStart: 34-09-1386Lzrmzlndsb 08/07/2017 Office Visit Primary Care Nini Pelletier CNP [address] [place] [address] [phone] [facility]iciansStart: 89-84-3225RmrofibknvtVFWWMRWGSHikaqaiop Clinic Start: 01-71-3320Ipqwfktpl for malignant neoplasm of breastMammogramOhioHealth Start: 23-49-9089BHF TESTINGHPV TESTINGMansfield Hospitaltart: 72-52-3873EMQ TESTINGPAP TESTINGMansfield Hospitaltart: 44-89-1634Jdhxa microalbumin profile DTAP,TDAP,TD (1 - Tdap)[facility]: 49-56-5735Rjofrubrn C screening Hepatitis C ScreeningOhioHealthStart: 81-96-2554PVGHSNMWT C SCREENINGHEPATITIS C SCREENINGMansfield Hospitaltart: 59-03-6279OHM SCREENINGHIV SCREENINGMansfield Hospitaltart: 22-43-9138PBT screeningHIV ScreeningOhioHealthStart: 09-24-1975 History and physical examination, annual for health maintenanceCar[facility]: 21-31-3787FPVWMQTBR B (1 of 3 - 3-dose series)HEPATITIS B (1 of 3 - 3-dose series)[facility]: 83-77-2740Hytjtxo mass concMammogram OhioHealthStart: 05-03-8758Irycccqhn for malignant neoplasm of cervixPAP SMEAR OhioHealthStart: 42-65-0543Oldrctrfe for malignant neoplasm of colonOhioHealth Start: 34-77-4588Ppsugpvsv mammographyMammogramMsioHealthCologuardCologuard Lab Routine Colon cancer screening Ordered: 2OhioHealthComment on above: Ordered: 09/22/2021 End: 48-45-4524Zgbhwejm blood count with white cell differential, manualCBC and Differential Lab Routine Unexplained weight loss 1 Occurrences starting 04/04/2019 until 04/04/2020OhioHealthComment on above:1 Occurrences starting 04/04/2019 until 04/04/2020 End: 17-22-2016Yzukuqfdscerm metabolic 2000 panelComprehensive Metabolic Panel Lab Routine HTN 1 Occurrences starting 04/04/2019 until 04/04/2020[facility] Comment on above:1 Occurrences starting 04/04/2019 until 04/04/2020 End: 31-34-6746Plkbojougjdlv metabolic 2000 panel - Serum or PlasmaComprehensive Metabolic Panel Lab Routine 1 Occurrences starting 09/22/2021 until 09/22/2022 OhioHealthComment on above:1 Occurrences starting 09/22/2021 until 09/22/2022 Comprehensive metabolic 2000 panel - Serum or PlasmaComprehensive Metabolic Panel Lab Routine 09/22/2021 12:11 PM EDTOhioHeal End: 94-59-3777Uqajndllfslbj metabolic panel [AGGREGATE]Comprehensive Metabolic Panel Routine HTN 1 Occurrences starting 07/31/2017 until 07/31/2018MsioCommunity Memorial Hospital Comprehensive metabolic panel [AGGREGATE]Comprehensive Metabolic Panel Routine HTN 07/31/2017 10:43 AM [facility] End: 14-04-3681KhH3b (Bld) [Mass fraction]Hemoglobin A1c Lab Routine Family history of diabetes mellitus 1 Occurrences starting 04/04/2019 until 04/04/2020 [facility]1 Occurrences starting 04/04/2019 until 04/04/2020 End: 60-32-4422Elnxgbxhon A1c/Hemoglobin.total in BloodHemoglobin A1c Lab Routine 1 Occurrences starting 09/22/2021 until 09/22/2022OhioHealthComment on above:1 Occurrences starting 09/22/2021 until 09/22/2022Hemoglobin A1c/Hemoglobin.total in BloodHemoglobin A1c Lab Routine 09/22/2021 12:11 PM EDT [facility] End: 46-55-1522Mbknfuzes C antibody measurementHepatitis C Antibody Lab Routine Healthcare maintenance 1 Occurrences starting 09/22/2021 until 09/22/2022 OhioHealthComment on above:1 Occurrences starting 09/22/2021 until 09/22/2022 Hepatitis C antibody measurementHepatitis C Antibody Lab Routine Healthcare maintenance 09/22/2021 12:11 PM EDTOhioHeal End: 29-76-9560Wcsdn immunodeficiency virus antibody testHIV 1/2 Screen (4th Generation) Lab Routine Healthcare maintenance 1 Occurrences starting 09/22/2021 until 09/22/2022OhioHealthComment on above:1 Occurrences starting 09/22/2021 until 09/22/2022Human immunodeficiency virus antibody testHIV 1/2 Screen (4th Generation) Lab Routine Healthcare maintenance 09/22/2021 12:11 PM EDTOhioHeal End: 05-66-5695Rnvvr 1996 panelLipid Panel Lab Routine HTN 1 Occurrences starting 04/04/2019 until 04/04/2020OhioHealthComment on above:1 Occurrences starting 04/04/2019 until 04/04/2020 End: 95-52-9666Lpqtn 1996 panel - Serum or PlasmaLipid Panel Lab Routine Hyperlipidemia, unspecified hyperlipidemia type 1 Occurrences starting 09/22 until 09/22/2022OhioHealthComment on above:1 Occurrences starting 09/22/2021 until 09/22/2022Lipid 1996 panel - Serum or PlasmaLipid Panel Lab Routine Hyperlipidemia, unspecified hyperlipidemia type 09/22/2021 12:11 PM EDT [facility] End: 95-04-3615Hywdt panelLipid Panel Routine Hyperlipidemia, Unspecified Hyperlipidemia Type 1 Occurrences starting 07/31/2017 until 07/31/2018[facility] Lipid panelLipid Panel Routine Hyperlipidemia, unspecified hyperlipidemia type 07/31/2017 10:43 AM ESTOhioHealth End: 62-88-7058FBK SCREENING W TOMOMAM SCREENING W ROOSEVELT Radiology Routine Atypical ductal hyperplasia of left breast Encounter for screening mammogram for malignant neoplasm of breast 1 Occurrences starting 08/02/2022 until 09/01/2023 [facility] Work Phone: Comment on above:1 Occurrences starting 08/02/2022 until 09/01/2023 End: 12-88-3834YY Breast - bilateral screeningMammography Screening Bilateral Imaging Routine Screening for malignant neoplasm of breast 1 Occurrences starting 04/04/2019 until 06/04/2020OhioHealthComment on above:1 Occurrences starting 04/04/2019 until 06/04/2020 End: 21-24-4631TC Breast - bilateral ScreeningMammography Screening [place] Bilateral Imaging Routine Encounter for screening for malignant neoplasmof breast, unspecified screening modality 1 Occurrences starting 09/22/2021 until 11/22/2022OhioHealthComment on above:1 Occurrences starting 09/22/2021 until 11/22/2022 End: 69-12-3258Zxdomgdqnpdz measurement, urine, quantitative Microalbumin/Creatinine Ratio, UR Random Lab Routine HTN 1 Occurrences starting 04/04/2019 until 04/04/2020OhioHealthComment on above:1 Occurrences starting 04/04/2019 until 04/04/2020Microalbumin, Urine, RandomMicroalbumin, Urine, Random Routine HTN 07/31/2017 10:43 AM ESTOhioHealthOUTSIDE SURG PATH SLIDE REVIEWOUTSIDE SURG PATH SLIDE REVIEW Lab Routine Ordered: [address] [place] [address] Work Phone: Comment on above:Ordered: 08/02/2022Renal function 1999 panel - [facility] - [facility] or [facility] End: 78-86-6072Kqsyvuuctvb [Units/volume] in Serum or PlasmaTSH with Reflex Free T4 Lab Routine Acquired hypothyroidism 1 Occurrences starting 09/22/2021 until 09/22/2022[facility] Work Phone: Comment on above:1 Occurrences starting 09/22/2021 until 09/22/2022Thyrotropin [Units/volume] in Serum or PlasmaTSH with Reflex Free T4 Lab Routine Acquired hypothyroidism 09/22/2021 12:11 PM EDTOhioHeal End: 61-50-5988IAX QnTSH Lab Routine Acquired hypothyroidism 1 Occurrences starting 04/04/2019 until 04/04/2020OhioHealthComment on above:1 Occurrences starting 04/04/2019 until 04/04/2020 End: 72-63-2522ERC with Reflex Free T4TSH with Reflex Free T4 Routine Acquired hypothyroidism 1 Occurrences starting 07/31/2017 until 07/31/2018OhioHealthTSH with Reflex Free T4TSH with Reflex Free T4 Routine Acquired hypothyroidism 07/31/2017 10:43 AM [facility] Immunizations Immunization DateImmunizationNotesCare HfquzdgzHyinzhjk26-64-1214khkskrhhz virus vaccine, unspecified formulationMichael NILL General Surgery Cvrgllpp95-97-5004Fdyqetee, trivalent, recombinant, injectable influenza vaccine, preservative Alisa Sierra MD Work Phone: [phone]cirgp55-07-0433MHTL-IuU-4 (COVID-19) mRNA BNT- 162b2 vaxMichael NILL General Surgery BellueComment on above:Result Comment: 2022-06-20: XXW6655-33-0446BVSY-SgR-1 (COVID-19) mRNA BNT-162b2 luisx Christopher LANDERSKasi General Surgery BellevueComment on above:Result Comment: 2022-06-20: CRC3697-56-1436nmpcijh toxoid, reduced diphtheria toxoid, and acellular pertussis vaccine, adsorbed; Translations:[TDAP]Nini Pelletier PsiaIhshzq61-16-5765zjgebpwdkv skin test; purified protein derivative solution, intradermal; Translations: [PPD TEST][facility] Payers DatePayer CategoryPayerPolicy ID2021Medicaid [id number] [id number] 2015 Medicaidxxxxxxxxxxxx [id number] 1994MedicareMEDICARE MEDICARE PART A & B xxxxxxxxxxx 1993-Present [place] [id number] 1994Medicare [id number] 2.0.1.481908.3.579.[id number] 2.840.1.860804.3.57[id number] 2.840.1.852575.3.579.2.99[id number] 2.840.1.115482.3.579.2.92929-10-2949Mifhlyn341304403 2.840.1.171131.3.579.2.36471-32-9121Kekenhl126083166 2.840.1.736743.3.579.2.18942-83-6081Wruxicj84087666 2.840.1.870094.3.579.2.64980-23-6951Qxkttle35523994 2.840.1.602272.3.579.2.04413-06-5848Rmyxdsj06248484 2.840.1.412596.3.579.2.98346-06-2662Ypdgflx97551321 2.0.1.798137.3.579.2.98090-66-1224Ncrxbes63030308 2.840.1.508270.3.579.2.48109-24-0515Gynclqu58900895 2.0.1.173351.3.579.2.10597-14-2823Mrkmggz0098514 2.0.1.740915.3.579.2.72616-00-6520Yyuqwdy6061250 2.0.1.746390.3.579.2.05601-30-1320Dwbdtxb9128828 2.0.1.202255.3.579.2.92248-91-2107Asqqzrz4515924 2.0.1.456153.3.579.2.24329-58-9238Xrvxrpm8492434 2.840.1.032032.3.579.2.13539-91-1888Gmayyog9188544 2.0.1.209844.3.579.2.11801-65-3508Wfiudez0316427 2.840.1.601907.3.579.2.92206-96-8577Sijjqff4290708 2.840.1.251276.3.579.2.56215-45-2932Nwtgxjd5372331 2..840.1.065859.3.579.2.42622-32-3487Qjfwysx9678394 2..840.1.073405.3.579.2.95544-43-3132Jwrqbta9075939 2..840.1.274475.3.579.2.86837-57-4301Rwerkqg5996465 2.840.1.530524.3.579.2.59222-18-1021Wqejmdk90797248 2.840.1.209871.3.579.2.146030-75-4083Veamxhi84436389 2.840.1.070436.3.579.2.112762-94-3689Dzeeqjo31305834 2.0.1.348716.3.579.2.715631-50-4278Puwghbb790186459 2.840.1.795956.3.579.2.175 [id number] 1960Medicare [id number] [id number] Social History DateTypeDetailFacilityStart: 09-26-2017 End: 49-43-2800Ldptxuc smoking status NHISNever smokerOhioHealthStart: 18-82-8645Qdw Assigned At BirthNot on fileOhioHealthStart: 04-04-2019 End: 55-66-4123Rtbwjzw intakeCurrent non-drinker of alcohol (finding)[facility] Start: 04-04-2019 End: 91-44-0838Cuddfha SDOH Food Wdtjg9HtegRuyrdwNaavm: 04-04-2019 End: 10-32-9688Vpijvlq use and exposureSmokeless tobacco non-userOhioHealth Start: 09-11-2021 End: 77-41-4598Phhosycs to SARS-CoV-2 (event)Not sureOhioHealthTobacco smoking statusNeverGeneral Surgery BellevueSex Assigned At [facility] CenterHistory of tobacco usePassive smokerMansfield Hospitaltart: 68-24-0253Vssjznl intakeEx-drinker (finding)[facility] Hospitalt[facility]: 51-05-9526Shc Assigned At [facility] Functional Status NqvqRedxquqvimVebcjqJqbimjho24-15-1386Kulhlxmhjf StatusN/AGeneral Surgery [place] Clinical Notes 09-22-2021 to 02-13-2023 Note Date & SfgpJntxEujcokbk19-66-2502 Evaluation note* Encounter Date Diagnosis Assessment Notes [...] E78.5) Follows with PCP for hyperlipidemia management. [employer] Other 03-08-2023 NoteHNO ID: [id number] Author: Kaden Golden MD Service: ? Author Type: Physician Type: Progress Notes Filed: 08/02/2022 4:01 PM Note Text: PATIENT NAME: Lindsey Burrows [facility] NO.: [id number] ATTENDING PHYSICIAN: Kaden Golden MD DATE OF [...] in pharmacologic risk reduc (more content not included)...[facility]03-08-2023 History of Present illness Narrative* Kaden Golden MD - 08/02/2022 3:28 PM EST Images from the original note were not included. PATIENT NAME: Lindsey Polo CLINIC NO.: [id number] ATTENDING PHYSICIAN: Kaden Golden MD DATE OF [...] number below. Kaden Golden M.D. Hematology/Medical Oncology [facility] [phone] CC: MD Leonardo Richards NP documented [facility] Telephone encounter Note * Telephone Encounter - Rashad Ashley MA - 07/17/2022 11:35 AM EST Patient needs an appointment VbtrQdxrtf78-76-4306 Miscellaneous Notes* Telephone Encounter - Rashad Ashley MA - 07/17/2022 11:35 AM EST Patient needs an appointment documented in this xirgdxoziPdhjMgfvrd96-03-1585 NoteOPERATIVE NOTE OPERATION DATE: 07/12/2022 PREOPERATIVE DIAGNOSIS: [...] room in good condition. CC: Patient's family physicianTrihealth01-24-2023 NoteChief Complaint consultation for abnormal mammogram/biopsy HPI [...] mcg= 1 tab(s), Oral, Daily Potassium Chloride (Xxw-Yzku-Dgq M20) 20 mEq oral tablet, extended release, [...] mRNA BN (more content not included)...[facility] HospitalComment on above:Result Comment: Electronically Signed By: TEODORO MALIK, Christopher Douglas.br\Date and Time Signed: 06/20/22 14:54 GLB01-63-9366 NoteOPERATIVE NOTE OPERATION DATE: 04/12/2022 PREOPERATIVE DIAGNOSIS: [...] room in good condition. CC: Leonardo Lenz, [place] [address]-16-2022 NoteOPERATIVE NOTE OPERATION DATE: 04/12/2022 ADDENDUM: Follow up colonoscopy for screening should be in 10 years.[facility] HospitalDkvbjogm40-04-0120 NoteChief Complaint consultation for screening colonoscopy HPI [...] mcg= 1 tab(s), Oral, Daily Potassium Chloride (Efr-Zpzw-Gex M20) 20 mEq oral tablet, extended release, [...] Family History Family history is negativeMercy Health Willard HospitalComment on above:Result Comment: Electronically Signed By: TEODORO MALIK, Christopher Ragland\Date and Time Signed: 03/08/22 16:55 ZEH40-19-8550 Evaluation + Plan note* Assessment & Plan Note - Radha Sierra MD - 09/22/2021 12:07 PM EDTAssociated Problem(s): Prediabetes Noted on last A1c Rechecking A1c HnhyPdlccn67-44-0070 Miscellaneous Notes* Assessment & Plan Note - [...] synthroid at current dose. documented in this fthxzkldpVdrcMouzxj74-18-4038 Evaluation + Plan note* Assessment & Plan Note - Radha Sierra MD - 09/22/2021 12:06 PM EDTAssociated Problem(s): Elevated serum creatinine Noted on last blood work in 2019. Rechecking labs. EzhkQhmpkk26-76-3611 Evaluation + Plan note* Assessment & Plan Note - Radha Sierra MD - 09/22/2021 12:04 PM EDTAssociated Problem(s): Sinus tachycardia, chronic Chronic. Asymptomatic. Appears to have had this as far back as 2016 per chart review. Not sure it has been worked up Will need to discuss starting a BB at next visit and cardiology referral. AbyaRjqcjw75-61-8576 Evaluation + Plan note* Assessment & Plan Note - Radha Sierra MD - 09/22/2021 12:02 PM EDTAssociated Problem(s): Hyperlipidemia Chronic. On Zocor. Continue. Checking lipid panel. KbzkCgjzde81-83-3529 Evaluation + Plan note* Assessment & Plan Note - Radha Sierra MD - 09/22/2021 11:59 AM EDTAssociated Problem(s): HTN Chronic. Not at goal. Asymptomatic. Does not take her medications consistently. Encouraged her to do this. No changes to meds at this time given inconsistent use. Will see back in 3 weeks and re-evaluate. HirkWoeivr32-09-8338 Evaluation + Plan note* Assessment & Plan Note - Radha Sierra MD - 09/22/2021 11:57 AM EDTAssociated Problem(s): Hypothyroidism Chronic. Reports stable blood levels on Synthroid 25 mg Rechecking labs today Refilled synthroid at current dose. QkkmYlkuga18-46-3179 History of Present illness Narrative* Radha Sierra [...] presents for Chief Complaint Patient presents with [facility] Here with her caregiver Gely who [...] Hyperlipidemia HTN Hypothyroidism Intellectual disability (CORBIN [facility], ) Short stature Hearing loss Underweight Sinus [...] all - documented in this encounterK[facility]Evaluation + Plan note No data available for this section [facility] [place] Evaluation + Plan noteGeneral Surgery [place] evaluation note* Diagnosis HTN- Primary Essential hypertension, benign Acquired hypothyroidism Unspecified hypothyroidism Hyperlipidemia, unspecified hyperlipidemia type Encounter for screening for malignant neoplasm of breast, unspecified screening modality Sinus tachycardia, chronic Other specified cardiac dysrhythmias Elevated serum creatinine Other nonspecific findings on examination of blood Prediabetes Other abnormal glucose documented [facility]* Diagnosis HTN- Primary Essential hypertension, benign Acquired hypothyroidism Unspecified hypothyroidism Hyperlipidemia, unspecified hyperlipidemia type Encounter for screening for malignant neoplasm of breast, unspecified screening modality Sinus tachycardia, chronic Other specified cardiac dysrhythmias Elevated serum creatinine Other nonspecific findings on examination of blood Prediabetes Other abnormal glucose documented in this encounter [facility]* Diagnosis Acquired hypothyroidism Unspecified hypothyroidism documented in this [facility]* Diagnosis Atypical ductal hyperplasia of left breast- Primary Encounter for screening mammogram for malignant neoplasm of breast Other screening mammogram documented in this encounter [facility]* Diagnosis HTN Essential hypertension, benign documented in this [facility] noteNo [employer] Other evaluation note* Diagnosis Onset Date Resolution Status Chronic kidney disease, stage 3b acuteHyperlipidemiaacuteHypertensive nephropathyacuteHypokalemiaacute HypomagnesemiaacuteVitamin D deficiencyacute [facility] Work Phone: evaluation note* Diagnosis Onset Date Resolution Status OSMANY (acute kidney injury) acuteChronic kidney disease, stage 3bacuteHyperkalemiaacuteHyperlipidemiaacute Hypertensive nephropathyacuteHypokalemiaacuteHypomagnesemiaacuteVitamin D deficiencyacute [facility] Work Phone: History general Narrative - Reported* Type Description Date Medical History CKD 3b Medical HistoryHYPERTENSIONMedical HistoryHYPERLIPIDEMIAMedical History OSTEOPOROSISMedical HistoryHYPOTHYROIDISMSurgical HistoryLEFT BREAST [id number] [employer] Other Hospital Discharge instructions No data available for this section General Surgery [place] Progress note No data available for this section General Surgery [place] Reason for referral (narrative) Referred by: Christopher VALERIO MD [facility] Surgery [place] Reweul for referral (narrative)* Diagnostic Procedure Only (Routine) - Pending ReviewSpecialtyDiagnoses / ProceduresReferred By ContactReferred To ContactBR IMAGING Diagnoses Atypical ductal hyperplasia of left breast Encounter for screening mammogram for malignant neoplasm of breast Procedures MAURICIO SCREENING W ROOSEVELT SCREENING DIGITAL BREAST TOMOSYNTHESIS BI SCREENING MAMMOGRAPHY BI 2-VIEW BREAST INC CAD Kaden Golden MD [address] [place] [address] [facility] [address] [place] [phone] Referral IDStatusReasonStart DateExpiration DateVisits RequestedVisits [id number] Review Auto-Generated Referral / [facility] Instructions * Patient Instructions - Nini [...] Log into your personal health record on [email or web address] and enter H967 in the Education box to learn more about DASH Diet: Care Instructions. Current as of: May 02, 2017 Content Version: .20054511-3784 [employer]. Care instructions adapted under license by your healthcare professional. If you have questions about a medical condition or this instruction, always ask your healthcare professional. [employer] disclaims any warranty or liability for your [...] Log into your personal health record on [email or web address] and enter H967 in the Education box to learn more about DASH Diet: Care Instructions. Current as of: August 18, 2015 Content Version: 11.2 1149-1633 [employer]. Care instructions adapted under license by your healthcare professional. If you have questions about a medical condition or this instruction, always ask your healthcare professional. [employer] disclaims any warranty or liability for your [...] Log into your personal health record on [email or web address] and enter H967 in the Education box to learn more about DASH Diet: Care Instructions. Current as of: August 18, 2015 Content Version: 11.2 3516-4331 [employer]. Care instructions adapted under license by your healthcare professional. If you have questions about a medical condition or this instruction, always ask your healthcare professional. [employer] disclaims any warranty or liability for your [...] Log into your personal health record on [email or web address] and enter X567 in the Education box to learn more about High Blood Pressure: Care Instructions. Current as of: January 03, 2016 Content Version: 11.2 0821-2925 [employer]. Care instructions adapted under license by your healthcare professional. If you have questions about a medical condition or this instruction, always ask your healthcare professional. [employer] disclaims any warranty or liability for your [...] Log into your personal health record on [email or web address] and enter P501 in the Education box to learn more about Learning About High Blood Pressure. Current as of: August 18, 2015 Content Version: 11.2 5703-3288 [employer]. Care instructions adapted under license by your healthcare professional. If you have questions about a medical condition or this instruction, always ask your healthcare professional. [employer] disclaims any warranty or liability for your [...] Patient Name: Lindsey Polo : 1970 Location: [address] [place] [id number] ASSESSMENT: Diagnoses and all orders for this visit: Bilateral hearing loss, unspecified hearing loss type Intellectual disability (CORBIN Kelleychristine, ) Short stature PLAN: -Form completed for [employer]. Pt appears to be appropriate for this [...] with her transportation through her work place ([employer]). She reports that the driversare rude and sometimes don't come . She spoke to the pt's [employer] casey saw operator (Johnson Cheek) re:the situation. She suggested that the pt try using [employer]. Pt needs the application signed. Pt's cousin [...] would like to start using the [employer]. Review of Systems Constitutional: Negative for activity [...] Name: Lindsey Polo : 1970 Location: [address] [facility], [place] [address] ASSESSMENT: Diagnoses and all orders for this [...] Directive (Living Will and/or Durable Power of Business Line Controller for Health Care)?: Copy on file What [...] file Gets together: Not on file Attends buddhist service: Not on file Active member of club or organization: Not on file Attends meetings of clubs or organizations: Not on file Relationship status: Not on file Other Topics Concern Not on file Social History Narrative Not on file Allergies: No Known Allergies Care Team Patient Care Team: Nahum Reaves CNP as PCP - General (Nurse Practitioner) Pharmacy / Equipment Co. (DME) [id number] [place], [place] [address] [facility] [address] [facility] [id number] Objective Blood pressure (!) 155/89, pulse 95, [...] Unexplained weight loss Suraj Addison MD [address] [place] [address] Rudy Sanchez, DO [address] [facility] [address] [place] [address] StatusReasonSpecialtyDiagnoses / ProceduresReferred By ContactReferred To ContactAuthorized Service Not Available Internally Audiology Diagnoses Hearing loss, unspecified hearing loss type, unspecified laterality Suraj Addison MD [address] [place] [address] Kamaljit Viera [address] [place] [address] StatusReasonSpecialtyDiagnoses / ProceduresReferred By ContactReferred To ContactAuthorized Service Not Available Internally Nephrology Diagnoses Hypertension, benign Suraj Addison MD [address] [place] [address] Marilee Song MD [address] [facility] [address] [place] [address] StatusReasonSpecialtyDiagnoses / ProceduresReferred By ContactReferred To ContactPending ReviewRadiology Diagnoses Screening for malignant neoplasm of breast Procedures Mammography Screening Bilateral Suraj Addison MD [address] [place] [address] SpecialtyDiagnoses / ProceduresReferred By ContactReferred To ContactRadiology / Central Scheduling Diagnoses Encounter for screening for malignant neoplasm of breast, unspecified screening modality Procedures Mammography Screening Roosevelt Bilateral Radha Sierra MD [address] [place] [address] Central Scheduling [address] [place] [address] Referral IDStatusReasonStart DateExpiration DateVisits RequestedVisits [id number] Specialty Services Required/Patient's Best Interest Chief Complaint [...] section and content) DATE CREATED AUTHOR 04/30/[address] [facility] DATE CREATED AUTHOR AUTHOR'S ORGANIZ ATION 09/27/2021 [facility] DATE CREATED AUTHOR AUTHOR'S ORGANIZ ATION 08/04/2022 [facility] DATE CREATED AUTHOR AUTHOR'S ORGANIZ ATION 08/08/2022 [facility] DATE CREATED AUTHOR AUTHOR'S ORGANIZ ATION 08/21/2022 [facility] DATE CREATED AUTHOR AUTHOR'S ORGANIZ ATION 01/21/2024 [facility] DATE CREATED AUTHOR AUTHOR'S ORGANIZ ATION 01/24/2024 [facility] DATE CREATED AUTHOR AUTHOR'S ORGANIZ ATION 01/25/2024 [facility] Care Teams (unrecognized sec tion and content) Team Status: Active Member Role Status Dates Natasha Kelley APRN Primary Care Provider Active Team Status: Inactive Member Role Status Dates Natasha Kelley APRN Primary Care Provider Active Start: February 26, 2024 End: February 25Rica Daugherty ProviderActiveStart: February 26, 2024 End: February 26, 2024Team MemberRelationshipSpecialtyStart DateEnd Date Radha Sierra MD [address] [place] [facility] [place] [address] [facility]Team MemberRelationshipSpecialtyStart DateEnd Date Radha Sierra MD [address] [facility] [address] PCP - [facility] Medicine09/22/21Team MemberRelationshipSpecialtyStart DateEnd Date Radha Sierra MD [address] [facility] [place] [address] [facility]/21Team MemberRelationshipSpecialtyStart DateEnd Date Leonardo Lenz(Historical), SENIOR DATABASE ENGINEER PCP - GeneralPrimary Care07/31/[address] [place] [address] DR CORRAL, [facility] OB/GYN07/31/22Team MemberRelationshipSpecialtyStart DateEnd Date Radha Sierra MD [address] [facility] [place] [address] PCP - [facility] Medicine09/22/21 Team Status: Active Member Role Status Dates Natasha Kelley APRN Primary Care Provider Active Team Status: Active Member Role Status Dates Leonardo Lenz [facility]- Primary Care Provider Active Start: November 05, [...] or prosecute any alcohol or drug abuse patient.[facility] Goals (unrecognized section and content) Goals [...] BE BASED ON THE PRIMARY CLINICAL RECORDS. [facility] [employer] [facility]. provides no warranty or guarantee of the accuracy or completeness of information in this document.
--- OUTSIDE RECORDS SUMMARY | 2025-04-03 11:24 | XMS_ITS | Clinical Summary ---
Author Organization [facility] Healthcare Address [address] [place] [address] Care Team Providers Care Terra Cotta Setter Name Role Phone Unavailable Primary Care Provider Unavailabl e Social History Tobacco UseTypesPacks/DayYears UsedDateSmoking Tobacco: Never Assessed CommentsUnknownSex and Gender InformationValueDate RecordedSex Assigned at Not on fileLegal TjbSrrdvt53/15/2023 11:45 PM EDTGender IdentityNot on file Sexual OrientationNot on file Last Filed Vital Signs Vital SignReadingTime TakenCommentsBlood Yxnjtwtd869/8307/31/2022 12:00 PM EST Pulse--Temperature--Respiratory Rate--Oxygen Saturation--Inhaled Oxygen Concentration--Gnakzq88.2 kg (71 lb)07/31/2022 12:00 PM KFRXsgecm110.1 cm (4' 4 )07/31/2022 12:00 PM ESTBody Mass Index18.46007/31/2022 12:00 PM EST Plan of Treatment Not on file Insurance
[2025-04-03 12:59] LABS: Alanine Aminotransferase 55 U/L (14-59); Albumin Globulin Ratio 1.2; Albumin Level 4.4 g/dL (3.4-5.0); Alkaline Phosphatase 105 U/L (46-116); Anion Gap 15.7; Aspartate Amino Transferase 29 U/L (15-37); Blood Urea Nitrogen 20.0 mg/dL (7.0-18.0); Calcium 9.6 mg/dL (8.5-10.1); Carbon Dioxide 26.3 mmol/L (21.0-32.0); Chloride 104 mmol/L (98-107); Cholesterol 181 mg/dL (<=200); Estimated GFR (African America 55 (>=60 mL/min/1.73m^2); Estimated GFR (Non-African Ame 45 (>=60 mL/min/1.73m^2); Globulin 3.7 g/dL; Glucose 102 mg/dL (74-106); HDL Cholesterol 79 mg/dL (40-60); Potassium 4.0 mmol/L (3.5-5.1); Sodium 142 mmol/L (136-145); Thyroid Stimulating Hormone 3.663 uIU/mL (0.358-3.740); Total Protein 8.1 g/dL (6.4-8.2); Triglycerides 74 mg/dL (<=150); VLDL CHOLESTEROL 14.8 mg/dL
== END 2025-04-03 11:21 | disposition home or self-care (01) ==
LOC: LAB 11:20
PROVIDERS: PCP Internal Medicine; Visit Provider Internal Medicine
DX: E78.2 Mixed hyperlipidemia (principal); E11.9 Type 2 diabetes mellitus without complications; E03.9 Hypothyroidism, unspecified; I10 Essential (primary) hypertension
CPT/HCPCS: 36415; 80053; 80061; 84443